=== PATIENT | female | born 1940 | race Caucasian/White ===

== ENCOUNTER 2019-04-13 10:22 | Outpatient (RCR) | payer MEDICARE, SELFPAY ==
[2019-02-16 10:58] LABS: Basophils Absolute Auto 0.03 K/mm3 (0.00-0.10); Basophils Percent Auto 0.4 % (0.0-1.0); Eosinophils Absolute Auto 0.13 K/mm3 (0.02-0.50); Eosinophils Percent Auto 1.9 % (1.0-6.0); Hematocrit 27.6 % (35.0-42.0); Hemoglobin 8.7 g/dL (11.7-13.8); Immature Granulocyte Absolute 0.02 K/mm3 (0.00-0.00); Immature Granulocyte Percent A 0.3 % (0.0-0.0); Immature Platelet Fraction Pct 2.6 % (1.0-7.0); Lymphocytes Absolute Auto 1.71 K/mm3 (1.10-4.50); Lymphocytes Percent Auto 24.7 % (18.0-42.0); Mean Corpuscular HGB Conc 31.5 g/dL (32.0-36.0); Mean Corpuscular Hemoglobin 33.2 pg (27.0-31.0); Mean Corpuscular Volume 105.3 fL (78.0-102.0); Mean Platelet Volume 11.5 fl (9.2-11.8); Monocytes Percent Auto 7.2 % (2.0-11.0); Neutrophils Absolute Auto 4.5 K/mm3 (1.7-7.2); Neutrophils Percent Auto 65.5 % (50.0-70.0); Platelet Count Result 67 K/mm3 (150-420); Red Blood Count 2.62 M/mm3 (4.20-5.40); Red Cell Distribution Width 15.3 % (11.6-14.4); White Blood Count 6.9 K/mm3 (4.8-10.8)
[2019-02-23 10:42] LABS: Basophils Absolute Auto 0.02 K/mm3 (0.00-0.10); Basophils Percent Auto 0.3 % (0.0-1.0); Eosinophils Absolute Auto 0.09 K/mm3 (0.02-0.50); Eosinophils Percent Auto 1.4 % (1.0-6.0); Hematocrit 28.1 % (35.0-42.0); Immature Granulocyte Absolute 0.03 K/mm3 (0.00-0.00); Immature Granulocyte Percent A 0.5 % (0.0-0.0); Immature Platelet Fraction Pct 2.3 % (1.0-7.0); Lymphocytes Absolute Auto 1.31 K/mm3 (1.10-4.50); Lymphocytes Percent Auto 20.1 % (18.0-42.0); Mean Corpuscular Hemoglobin 33.5 pg (27.0-31.0); Mean Corpuscular Volume 104.5 fL (78.0-102.0); Mean Platelet Volume 11.1 fl (9.2-11.8); Monocytes Absolute Auto 0.41 K/mm3 (0.10-0.90); Monocytes Percent Auto 6.3 % (2.0-11.0); Neutrophils Absolute Auto 4.7 K/mm3 (1.7-7.2); Neutrophils Percent Auto 71.4 % (50.0-70.0); Platelet Count Result 70 K/mm3 (150-420); Red Blood Count 2.69 M/mm3 (4.20-5.40); Red Cell Distribution Width 14.9 % (11.6-14.4); White Blood Count 6.5 K/mm3 (4.8-10.8)
[2019-03-09 11:35] LABS: Basophils Absolute Auto 0.02 K/mm3 (0.00-0.10); Basophils Percent Auto 0.4 % (0.0-1.0); Eosinophils Absolute Auto 0.12 K/mm3 (0.02-0.50); Eosinophils Percent Auto 2.5 % (1.0-6.0); Hematocrit 26.8 % (35.0-42.0); Hemoglobin 8.6 g/dL (11.7-13.8); Immature Granulocyte Absolute 0.01 K/mm3 (0.00-0.00); Immature Granulocyte Percent A 0.2 % (0.0-0.0); Lymphocytes Absolute Auto 0.73 K/mm3 (1.10-4.50); Lymphocytes Percent Auto 15.5 % (18.0-42.0); Mean Corpuscular HGB Conc 32.1 g/dL (32.0-36.0); Mean Corpuscular Hemoglobin 33.7 pg (27.0-31.0); Mean Corpuscular Volume 105.1 fL (78.0-102.0); Monocytes Absolute Auto 0.33 K/mm3 (0.10-0.90); Neutrophils Absolute Auto 3.5 K/mm3 (1.7-7.2); Neutrophils Percent Auto 74.4 % (50.0-70.0); Platelet Count Result 27 K/mm3 (150-420); Red Blood Count 2.55 M/mm3 (4.20-5.40); Red Cell Distribution Width 16.3 % (11.6-14.4); White Blood Count 4.7 K/mm3 (4.8-10.8)
[2019-03-15 10:54] LABS: Hematocrit 29.2 % (35.0-42.0); Hemoglobin 9.1 g/dL (11.7-13.8); Immature Platelet Fraction Pct 2.6 % (1.0-7.0); Mean Corpuscular HGB Conc 31.2 g/dL (32.0-36.0); Mean Corpuscular Volume 105.8 fL (78.0-102.0); Mean Platelet Volume 10.2 fl (9.2-11.8); Platelet Count Result 52 K/mm3 (150-420); Red Blood Count 2.76 M/mm3 (4.20-5.40); Red Cell Distribution Width 16.2 % (11.6-14.4); White Blood Count 5.8 K/mm3 (4.8-10.8)
[2019-03-15 11:04] LABS: Band Neutrophils Percent 0 % (0-6); Basophils Absolute Manual 0.05 K/mm3 (0-0.1); Basophils Percent Manual 1 % (0-1); Eosinophils Absolute Manual 0.11 K/mm3 (0.02-0.5); Eosinophils Percent Manual 2 % (1-6); Lymphocytes Absolute Manual 0.87 K/mm3 (1.1-4.5); Lymphocytes Percent Manual 15 % (18-44); Monocytes Absolute Manual 0.23 K/mm3 (0.1-0.90); Monocytes Percent Manual 4 % (3-9); Neutrophils Absolute Manual 4.52 K/mm3 (1.7-7.2); Neutrophils Percent Manual 78 % (46-73); Platelet Estimate Decreased (Adequate); Total Cells Counted 100
[2019-04-13 10:38] LABS: Basophils Absolute Auto 0.02 K/mm3 (0.00-0.10); Basophils Percent Auto 0.3 % (0.0-1.0); Eosinophils Absolute Auto 0.14 K/mm3 (0.02-0.50); Eosinophils Percent Auto 2.4 % (1.0-6.0); Hematocrit 28.3 % (35.0-42.0); Hemoglobin 8.9 g/dL (11.7-13.8); Immature Granulocyte Absolute 0.02 K/mm3 (0.00-0.00); Immature Granulocyte Percent A 0.3 % (0.0-0.0); Immature Platelet Fraction Pct 2.3 % (1.0-7.0); Lymphocytes Absolute Auto 0.72 K/mm3 (1.10-4.50); Lymphocytes Percent Auto 12.4 % (18.0-42.0); Mean Corpuscular HGB Conc 31.4 g/dL (32.0-36.0); Mean Corpuscular Hemoglobin 33.3 pg (27.0-31.0); Mean Platelet Volume 9.7 fl (9.2-11.8); Monocytes Absolute Auto 0.39 K/mm3 (0.10-0.90); Monocytes Percent Auto 6.7 % (2.0-11.0); Neutrophils Absolute Auto 4.5 K/mm3 (1.7-7.2); Neutrophils Percent Auto 77.9 % (50.0-70.0); Platelet Count Result 60 K/mm3 (150-420); Red Blood Count 2.67 M/mm3 (4.20-5.40); Red Cell Distribution Width 15.9 % (11.6-14.4); White Blood Count 5.8 K/mm3 (4.8-10.8)
== END 2019-05-17 23:59 | disposition home or self-care (01) ==
LOC: CHSLAB 10:22
PROVIDERS: PCP Internal Medicine
DX: N18.5 Chronic kidney disease, stage 5 (principal); D63.1 Anemia in chronic kidney disease
CPT/HCPCS: 36415; 85025

== ENCOUNTER 2019-05-06 10:22 | Outpatient (CLI) | payer MEDICARE, SELFPAY ==
[2019-05-06] MEDS: EPOETIN ALFA 10,000 UNITS/ML VIAL 20000 UNITS SUB-Q (10:42)
== END 2019-05-06 10:23 | disposition home or self-care (01) ==
LOC: CHSTREATRM 10:25
PROVIDERS: PCP Internal Medicine; Visit Provider Internal Medicine Nephrology
DX: N18.4 Chronic kidney disease, stage 4 (severe) (principal); D63.1 Anemia in chronic kidney disease
CPT/HCPCS: 96372; J0885

== ENCOUNTER 2019-05-11 10:29 | Outpatient (CLI) | payer MEDICARE, SELFPAY ==
[2019-05-11 10:41] LABS: Basophils Absolute Auto 0.02 K/mm3 (0.00-0.10); Basophils Percent Auto 0.3 % (0.0-1.0); Eosinophils Absolute Auto 0.04 K/mm3 (0.02-0.50); Eosinophils Percent Auto 0.6 % (1.0-6.0); Hematocrit 23.8 % (35.0-42.0); Hemoglobin 7.6 g/dL (11.7-13.8); Immature Granulocyte Absolute 0.02 K/mm3 (0.00-0.00); Immature Granulocyte Percent A 0.3 % (0.0-0.0); Immature Platelet Fraction Pct 4.1 % (1.0-7.0); Lymphocytes Absolute Auto 0.83 K/mm3 (1.10-4.50); Lymphocytes Percent Auto 12.7 % (18.0-42.0); Mean Corpuscular HGB Conc 31.9 g/dL (32.0-36.0); Mean Corpuscular Hemoglobin 33.5 pg (27.0-31.0); Mean Corpuscular Volume 104.8 fL (78.0-102.0); Mean Platelet Volume 12.8 fl (9.2-11.8); Monocytes Absolute Auto 0.47 K/mm3 (0.10-0.90); Monocytes Percent Auto 7.2 % (2.0-11.0); Neutrophils Absolute Auto 5.2 K/mm3 (1.7-7.2); Neutrophils Percent Auto 78.9 % (50.0-70.0); Platelet Count Result 30 K/mm3 (150-420); Red Blood Count 2.27 M/mm3 (4.20-5.40); White Blood Count 6.6 K/mm3 (4.8-10.8)
== END 2019-05-11 10:30 | disposition home or self-care (01) ==
LOC: CHSLAB 10:32
PROVIDERS: PCP Internal Medicine; Visit Provider Internal Medicine Nephrology
DX: N18.4 Chronic kidney disease, stage 4 (severe) (principal); D63.1 Anemia in chronic kidney disease
CPT/HCPCS: 36415; 85025; 85055

== ENCOUNTER 2019-05-13 10:32 | Emergency (ER) | payer MEDICARE, SELFPAY ==
[2019-05-13] VITALS (8 sets, daily range): BP systolic 110–169; BP diastolic 65–93; PULSE 76–87; RESP 14–18; TEMP 36.6–37.1; O2SAT 99–100
--- NOTE | 2019-05-13 11:16 | ECG_ITS ---
Measurements Intervals [place] Rate: 81 P: 97 IN: 175 QRS: -7 QRSD: 89 T: 74 QT: 363 QTc: 423 Interpretive Statements SINUS RHYTHM VENTRICULAR PREMATURE COMPLEXES EARLY PRECORDIAL R/S TRANSITION BASELINE WANDER- AVR, AVL, AVF, V1, BORDERLINE ECG Electronically Signed On 05-13-2019 11:53:01 [employer]CHOOL PROGRAM TEACHER by Petar Saunders D.O.
[2019-05-13 11:32] LABS: Occult Blood Positive (Negative)
[2019-05-13 11:33] LABS: Basophils Absolute Auto 0.01 K/mm3 (0.00-0.10); Basophils Percent Auto 0.2 % (0.0-1.0); Eosinophils Absolute Auto 0.03 K/mm3 (0.02-0.50); Eosinophils Percent Auto 0.5 % (1.0-6.0); Immature Granulocyte Absolute 0.02 K/mm3 (0.00-0.00); Immature Granulocyte Percent A 0.3 % (0.0-0.0); Immature Platelet Fraction Pct 4.6 % (1.0-7.0); Lymphocytes Absolute Auto 0.38 K/mm3 (1.10-4.50); Lymphocytes Percent Auto 6.1 % (18.0-42.0); Mean Corpuscular HGB Conc 31.4 g/dL (32.0-36.0); Mean Corpuscular Hemoglobin 33.1 pg (27.0-31.0); Mean Corpuscular Volume 105.5 fL (78.0-102.0); Mean Platelet Volume 11.7 fl (9.2-11.8); Monocytes Absolute Auto 0.34 K/mm3 (0.10-0.90); Monocytes Percent Auto 5.5 % (2.0-11.0); Neutrophils Absolute Auto 5.4 K/mm3 (1.7-7.2); Neutrophils Percent Auto 87.4 % (50.0-70.0); Platelet Count Result 28 K/mm3 (150-420); Red Blood Count 1.45 M/mm3 (4.20-5.40); Red Cell Distribution Width 15.5 % (11.6-14.4); White Blood Count 6.2 K/mm3 (4.8-10.8)
[2019-05-13 11:36] LABS: Hemoglobin 4.8 g/dL (11.7-13.8)
[2019-05-13 11:37] LABS: Hematocrit 15.3 % (35.0-42.0)
[2019-05-13 11:45] LABS: INR 1.1; Partial Thromboplastin Time 26.1 SEC (22.3-31.6); Prothrombin Time 10.9 Seconds (9.64-11.0)
[2019-05-13 11:47] LABS: Alanine Aminotransferase 6 U/L (14-59); Albumin Level 1.8 g/dL (3.4-5.0); Alkaline Phosphatase 110 U/L (46-116); Aspartate Amino Transferase 9 U/L (15-37); Bilirubin,Total 0.3 mg/dL (0.00-1.00); Blood Urea Nitrogen 83 mg/dL (7-18); Calcium 8.5 mg/dL (8.5-10.1); Carbon Dioxide 23 mmol/L (21-32); Chloride 101 mmol/L (98-108); Estimated CRCL calculation 12 ml/min; Estimated Glomerular Filt Rate 16; Glucose 151 mg/dL (70-99); Lipase 79 U/L (73-393); Osmolality Calculated 302 mOsm/kg (285-295); Sodium 132 mmol/L (136-145); Total Protein 5.7 g/dL (6.4-8.2)
[2019-05-13 11:54] LABS: Lactic Acid 0.9 mmol/L (0.4-2.0)
[2019-05-13 11:56] LABS: BNP 756 pg/mL (0-100)
--- NOTE | 2019-05-13 12:13 | PC.NURSE ---
Pt requesting [facility] for transfer. Attempted household appliance installer, unable to be reached at this time.
--- NOTE | 2019-05-13 12:23 | PC.NURSE ---
[facility] contacted for edp to speak with hospitalist.
[2019-05-13] MEDS: PANTOPRAZOLE SODIUM IV 40 MG VIAL IV PUSH (12:34)
[2019-05-13] MEDS: SODIUM CHLORIDE 0.9% IV 250 ML 30 ML IV CONT (12:37)
--- NOTE | 2019-05-13 12:40 | ED.GIBLEED ---
HPI - GI Bleed General Chief complaint: GI Bleed Stated complaint: weak and passing blood Source: patient and family Mode of arrival: ambulatory Limitations: no limitations History of Present Illness HPI Narrative: this is a 78-year-old female that presents with some a GI bleed had 2 large some bowel movements with bright red blood, currently on there is no abdominal pain denies any shortness of breath no chest pain no nausea or vomiting patient does have a history of diverticulosis, and was seen at [facility] had a colonoscopy performed at that time, according the family that study was inconclusive. The patient also states that she has been having weakness over the last 24 hours, has a past medical history of chronic kidney disease which she sees kidney specialist at [facility]. Patient has a history of hypertension hyperlipidemia. Current we are vital signs are stable blood pressure 110/86 with heart rate of 81. MD complaint: gross hematochezia Onset (ago): hour(s) Pain Consistency: intermittent Severity: severe Relieving factors: none and bowel movement Exacerbating factors: none Context: history of GI bleed Associated symptoms: denies other symptoms Related Data Home Medications Medication Instructions Recorded Confirmed PNV cmb#95-ferrous fumarate-FA 1 tablet PO DAILY 05/13/19 05/13/19 [ Multivitamins] allopurinol 100 mg PO DAILY 05/13/19 05/13/19 aspirin 81 mg PO DAILY 05/13/19 05/13/19 betamethasone, augmented 1 applic TOPICAL PRN 05/13/19 05/13/19 carvedilol 25 mg PO BID 05/13/19 05/13/19 cholecalciferol (vitamin D3) 1,000 unit PO DAILY 05/13/19 05/13/19 [Vitamin D3] clonidine HCl 0.1 mg PO BID 05/13/19 05/13/19 docusate calcium [Surfak] 240 mg PO DAILY 05/13/19 05/13/19 fluticasone propionate [Flonase 1 spray INTRANASAL DAILY 05/13/19 05/13/19 Allergy Relief] hydralazine 10 mg PO QID 05/13/19 05/13/19 montelukast 10 mg PO DAILY 05/13/19 05/13/19 psyllium husk [Metamucil] 0.4 g PO DAILY 05/13/19 05/13/19 simvastatin 10 mg PO DAILY 05/13/19 05/13/19 vitamin B complex [B 1 tablet PO DAILY 05/13/19 05/13/19 Complex-Vitamin B12] Allergies Allergy/AdvReac Type Severity Reaction Status Date / Time ciprofloxacin Allergy Severe Anaphylactic Verified 05/06/19 10:34 Shock cephalexin Allergy Intermediate TINNITIS Verified 05/06/19 10:34 Penicillins Allergy Intermediate HIVES Verified 05/06/19 10:34 Quinolones Allergy Intermediate HIVES Verified 05/06/19 10:34 Review of Systems Review of Systems: All systems reviewed & are unremarkable except as noted in HPI and below PMFSH Past Medical History Medical History Anemia of chronic kidney failure Diverticulosis of colon with hemorrhage HLD (hyperlipidemia) HTN (hypertension) Exam Const: General: no acute distress, alert and ill appearing Orientation/consciousness: patient oriented x3 HENMT: Head: normal to inspection Eyes: Conjunctivae: conjunctivae normal Pupils: Equal, round and reactive pupils present Neck: Neck: normal visual inspection and no lymphadenopathy Chest: Chest palpation & inspection: normal inspection of the chest Resp: Effort & Inspection: normal respiratory effort Cardio: Rate: regular rate Rhythm: regular rhythm GI: GI Palp: Yes Soft to palpation Other: Rectal exam performed showed blood along with some dark stools Skin: General skin exam: pallor Rashes: no rashes Neuro: General: patient oriented x3, moves all extremities, no meningeal signs and no focal motor deficits Extrem: General: normal to inspection Psych: Mental Status: mental status grossly normal Course Vital Signs Vital signs: Vital Signs Temperature 36.6 C 05/13/19 11:19 Pulse Rate 81 05/13/19 11:19 Respiratory Rate 16 05/13/19 11:19 Blood Pressure 110/65 05/13/19 11:19 Pulse Oximetry 100 05/13/19 11:19 Temperature 36.6 C 05/13/19 11:19 Pulse
--- NOTE | 2019-05-13 12:52 | PC.NURSE ---
Dr. Velasco speaking with Hospital AIRPORT OPERATIONS SUPERVISOR, for dr hay at [place].
--- NOTE | 2019-05-13 12:54 | PC.NURSE ---
Pt to go to room 204.
--- NOTE | 2019-05-13 13:10 | PC.NURSE ---
[facility] unable to take report, room still has pt in it. Awaiting return call to give report.
--- NOTE | 2019-05-13 13:35 | PC.NURSE ---
Pt resting comfortably on stretcher.
--- NOTE | 2019-05-13 15:18 | PC.NURSE ---
Awaiting room to be ready at [facility] for transfer. Pt resting on stretcher, family at bedside. Pt and family updated.
[2019-05-13 15:31] LABS: Hematocrit 18.5 % (35.0-42.0)
--- NOTE | 2019-05-13 15:54 | PC.NURSE ---
[facility] unable to transport pt. [facility] contacted.
--- NOTE | 2019-05-13 16:28 | PC.NURSE ---
Pt transfered to [facility] with blood infusing.
== END 2019-05-13 16:26 | disposition short-term general hospital (02) ==
PROVIDERS: Emergency Provider Emergency Medicine; PCP Internal Medicine
DX: K92.2 Gastrointestinal hemorrhage, unspecified (principal); K57.91 Diverticulosis of intestine, part unspecified, without perforation or abscess with bleeding; N18.9 Chronic kidney disease, unspecified; D63.1 Anemia in chronic kidney disease; E78.5 Hyperlipidemia, unspecified; I12.9 Hypertensive chronic kidney disease with stage 1 through stage 4 chronic kidney disease, or unspecified chronic kidney disease
CPT/HCPCS: 36415; 36430; 80053; 82272; 83605; 83690; 83880; 85014; 85018; 85025; 85055; 85610; 85730; 86850; 86900; 86901; 86920; 93005; 96361; 96374; 99284; 99285; C9113; J7050; P9016

== ENCOUNTER 2019-05-13 17:12 | Inpatient (IN) | payer MEDICARE, SELFPAY ==
[2019-05-13] VITALS (9 sets, daily range): BP systolic 148–170; BP diastolic 67–87; PULSE 82–96; RESP 16–24; TEMP 36.4–37.4; O2SAT 99–100; BMI 26.4; BMI 25.6; BMI 25.7
--- NOTE | ~2019-05-13 | CT_ITS ---
EXAMINATION: CT abdomen pelvis wo con DATE: 05/15/2019 09:19 INDICATION: Diverticulitis. Limited colonoscopy. TECHNIQUE: Computed tomography (CT) of the abdomen and pelvis was performed without intravenous contr ast. Automated exposure control and iterative reconstruction technique were employed. The dose-length product was 395.72 mGy-cm. COMPARISON: 06/18/2017 FINDINGS: Small left and [id number] right pleural effusions with dependent compressive atelectasis in th e bilateral lower lobes. Cardiomegaly. Trace pericardial effusion. Small sliding-type hiatal hernia. Several fluid attenuation hepatic cysts the largest measuring 2.5 cm. Also a few hepatic calcificatio ns consistent with old granulomatous disease. Dependently layering sludge and small calcified gallsto anibal in the normal appearing gallbladder. Spleen and bilateral adrenal glands are normal. Again seen i s a small coarse calcification at the periphery of indeterminate 3.2 x 2.0 cm cystic lesion at the ne ck of the pancreas. No definitive interval change in a subtle approximately 1.9 cm lesion at the uppe r pole of the left kidney which appears centrally low attenuation, potentially partially cystic with thickened peripheral wall. Unchanged 5 mm hyperdense proteinaceous/hemorrhagic cyst at the mid left k idney. Suggestion of a subtle cyst at the upper pole of the right kidney. Moderate bilateral perineph irene stranding. Normal small bowel and appendix with no obstruction. Multiple colonic diverticula. There is prominent wall thickening and inflammatory stranding along the proximal to mid sigmoid colon suggestive of div erticulitis. 4.1 x 2.7 x 1.8 cm loculated gas and fluid collection situated between the left psoas mu scle, left iliac vessels and proximal sigmoid colon consistent with abscess. The position of the lesi on is not readily accessible to percutaneous drainage. Additional 2.1 x 1.1 x 1.4 cm gas and fluid co llection intimately associated with the posterior wall of the proximal sigmoid colon consistent with additional abscess potentially intramural. No more remote free intraperitoneal gas. Bladder and uteru s appear unremarkable however visualization of both is poor due to prominent metallic streak artifact in the deep pelvis resulting from a right total hip arthroplasty and left femoral head and neck fixa tion screw. No pathologically enlarged abdominal or pelvic lymphadenopathy. Severe disc height loss a t L5-S1. Minimal spondylosis in the more cephalad lumbar and lower thoracic spine. Extensive dependen t body wall edema. IMPRESSION: 1. Diverticulitis with a couple small abscesses in the pelvis which currently do not appear readily a menable to percutaneous drainage. 2. Indeterminate 1.9 cm lesion at the upper pole of the left kidney concerning for renal cell carcino ma. Consider further evaluation with pre and postcontrast MRI or CT. 3. Cystic lesion at the neck of the pancreas with adjacent coarse calcification most likely pseudocys t related to chronic pancreatitis although cystic neoplasm cannot be absolutely excluded. This could be further evaluated at the same time as the renal lesion. 4. Cardiomegaly with trace pericardial effusion. 5. Small left and uewvw-sl-wdyntelh right pleural effusions. 6. Cholelithiasis. Reviewed, dictated and finalized at location A. CIATE FACULTY IMPRESSION: 1. Diverticulitis with a couple small abscesses in the pelvis which currently d o not appear readily amenable to percutaneous drainage. 2. Indeterminate 1.9 cm lesion at the upper pole of the left kidney concerning for renal cell carcinoma. Consider further evaluation with pre and postcontrast MRI or CT. 3. Cystic lesion at the neck of the pancreas with adjacent coarse calcification most likely pseudocyst related to
--- NOTE | ~2019-05-13 | XR_ITS ---
EXAMINATION: XR chest 1V portable DATE: 05/13/2019 23:40 INDICATION: Shortness of breath TECHNIQUE: frontal view of the chest was obtained. COMPARISON: Chest radiograph dated 10/15/2018 FINDINGS: Mild reticular opacities at the bilateral lung bases suggesting mild pulmonary edema or atelectasis. Additional hazy airspace opacity at the right lung base with distinct costophrenic angle suggesting p ossible small right pleural effusion. No pneumothorax. The cardiomediastinal silhouette is within nor mal limits for AP technique. Mild thoracic spondylosis. IMPRESSION: 1. Interstitial and airspace opacities at the lung bases, right greater than left which could represe nt mild pulmonary edema, atelectasis or pneumonia with possible small right pleural effusion. Reviewed, dictated and finalized at location A. GER PRICING IMPRESSION: 1. Interstitial and airspace opacities at the lung bases, right greater than le ft which could represent mild pulmonary edema, atelectasis or pneumonia with po ssible small right pleural effusion.
--- NOTE | 2019-05-13 17:00 | ADMGEN ---
This patient, Grecia Patterson, was admitted to IMU Room 201-01. Patient/family oriented to hospital policies and general routines including ID bracelet, bed and alarms, visiting hours, pain management, procedures, bathroom and other care routines, personal items, smoking policy, room service/diet, and visiting hours. Valuables list has been completed. Information on how to activate the Rapid Response Team has been discussed. Patient/Family are encouraged to report perceived risks to care and to ask questions if they do not understand what they are told or what they should do.
[2019-05-13] MEDS: FUROSEMIDE INJ 40 MG/4 ML VIAL 20 MG IV PUSH (19:06)
[2019-05-13 19:33] LABS: Hematocrit 23.6 % (37.0-47.0); Hemoglobin 7.6 g/dL (12.0-15.0)
[2019-05-13] MEDS: PEG (High)/E-LYTE SOLN 4,000 ML BTL 4000 ML PO (20:27)
[2019-05-13] MEDS: SODIUM CHLORIDE 0.9% IV 250 ML 30 ML IV CONT (20:28)
--- NOTE | 2019-05-13 21:00 | PM.IMHP ---
H&P: HPI History of Present Illness Chief complaint: GI bleed, profound anemia. Narrative: Grecia Patterson is a 78 year old female who is being directly admitted to the hospitalist service from the emergency department at [facility] for further treatment and evaluation of presumed lower GI bleed and profound anemia. Her medical history is significant for diverticulitis with micro perforation in the summer, chronic kidney disease stage 4, chronic anemia with thrombocytopenia, hypertension, and hyperlipidemia. She felt weak upon waking this morning, and not long thereafter passed 2 large bloody stools. She felt a bit sweaty/clammy at that time but that has since resolved. She has not had any further bloody stools since transfer. At this time she is status post 2 units packed red blood cells, and notes feeling somewhat better however she does have nausea and had emesis x1 with bowel prep not long prior to my arrival. She also has mild shortness of breath, but that does not seem to be any worse than baseline. Currently she denies fever, chills, sweats, chest pain, pleuritic pain, shortness of breath, abdominal pain, and epigastric pain. Review of Systems Review of Systems: Narrative: Twelve systems were reviewed with pertinent positives and negatives as per HPI. No fever, chills, or sweats. No recent cold or flu-like symptoms. She did get her flu shot in April of this year. She denies history of congestive heart failure. She notes chronic trace lower extremity edema which is unchanged. No calf pain or tenderness. Except as documented, all other systems were reviewed and are negative. [facility] Past Medical History Medical History (Updated 05/13/19 @ 22:18 by Jillian Emerson PA-C) Breast cancer Carcinoma in situ, status post lumpectomy and radiation therapy. Chronic anemia She is a patient of Dr. Telles at [place]. A bone marrow biopsy done about 5 years ago was reportedly unremarkable. Chronic kidney disease, stage 4 (severe) Baseline creatinine around 3.0. Diverticular disease Diverticulitis of colon with perforation Summer 2018, hospitalized at [place]. Diverticulosis of colon with hemorrhage Summer 2018. Gout Hyperlipidemia Hypertension Surgical History Surgical History (Updated 05/13/19 @ 13:21 by Jillian Emerson PA-C) Status post hip surgery Left hip screw. Status post right breast lumpectomy Status post right hip replacement Family History Family History (Updated 05/13/19 @ 13:22 by Jillian Emerson PA-C) Father Alzheimer's dementia End-stage renal disease needing dialysis Mother Breast cancer Grandparent Diabetes mellitus Social History Social History (Updated 05/13/19 @ 22:16 by Jillian Emerson PA-C) Social History: The patient lives in her own home [place]. Her children live nearby. She designates her daughter's as her surrogate decision makers and she wishes to be a DNR/DNI. She is a lifelong nonsmoker and denies alcohol and drug abuse. Spiritual care concerns: No Agree to blood products: Yes Meds Home Medications and Allergies Home Medications Medication Instructions Recorded Confirmed Type PNV cmb#95-ferrous fumarate-FA 1 tablet PO DAILY 05/13/19 05/13/19 History [ Multivitamins] allopurinol 100 mg PO DAILY 05/13/19 05/13/19 History aspirin 81 mg PO DAILY 05/13/19 05/13/19 History betamethasone, augmented 1 applic TOPICAL PRN 05/13/19 05/13/19 History carvedilol 25 mg PO BID 05/13/19 05/13/19 History cholecalciferol (vitamin D3) 1,000 unit PO DAILY 05/13/19 05/13/19 History [Vitamin D3] clonidine HCl 0.1 mg PO BID 05/13/19 05/13/19 History docusate calcium [Surfak] 240 mg PO DAILY 05/13/19 05/13/19 History fluticasone propionate [Flonase 1 spray INTRANASAL DAILY 05/13/19 05/13/19 History Allergy Relief] hydralazine 10 mg PO QID 05/13/19 05/13/19 History montelukast 10 mg PO DAILY 05/13/19 05/13/19 History psyllium husk
[2019-05-13] MEDS: CLONIDINE HCL 0.1 MG TABLET PO (22:55)
[2019-05-13] MEDS: ONDANSETRON INJ 4 MG/2 ML VIAL IV PUSH (22:55)
[2019-05-13] MEDS: TUBING, BLOOD PLUM PUMP TUBING 1 EACH XX (23:00)
[2019-05-14] VITALS (29 sets, daily range): BP systolic 97–185; BP diastolic 53–91; PULSE 74–95; RESP 16–25; TEMP 36.1–36.9; O2SAT 93–100
[2019-05-14] MEDS: hydrALAZINE 10 MG TABLET PO ×5 (00:21→20:36)
[2019-05-14] MEDS: carvediloL 25 MG TABLET PO ×3 (00:21→20:36)
[2019-05-14 06:53] LABS: Hematocrit 30.6 % (37.0-47.0); Mean Corpuscular HGB Conc 32.7 g/dl (32-36); Mean Corpuscular Volume 94.7 fl (80-100); Mean Platelet Volume 12.8 fl (7.4-10.4); Platelet Count Result 32 k/mm3 (150-375); Red Blood Count 3.23 M/mm3 (4.2-5.4); Red Cell Distribution Width 17.6 % (11.5-14.5); White Blood Count 5.6 K/mm3 (4.5-10.0)
[2019-05-14 07:04] LABS: Blood Urea Nitrogen 68 mg/dL (7-17); Calcium 8.7 mg/dL (8.4-10.2); Carbon Dioxide 24 mmol/L (22-30); Chloride 97 mmol/L (98-107); Estimated CRCL calculation 16 ml/min; Estimated Glomerular Filt Rate 19; Glucose 108 mg/dL (65-105); Potassium 4.2 mmol/L (3.4-5.0); Sodium 131 mmol/L (137-145)
[2019-05-14] MEDS: MONTELUKAST SODIUM 10 MG TABLET PO (08:28)
[2019-05-14] MEDS: FLUTICASONE PROPIONATE 0.05% NA SPR 16 GM BTL (*BKC) 1 SPRAY NASAL (08:28)
[2019-05-14] MEDS: CLONIDINE HCL 0.1 MG TABLET PO ×2 (08:28→16:32)
[2019-05-14] MEDS: allopurinoL 100 MG TABLET PO (08:28)
[2019-05-14] MEDS: SIMVASTATIN 10 MG TABLET PO (08:28)
--- NOTE | 2019-05-14 09:31 | WPDGICN ---
Assessment and Plan Additional Plan This is a 78-year-old white female patient seen in evaluation at the request of the emergency room. Patient in her usual state of health yesterday began to pass dark blackish stools that became reddish prompting her to go to the emergency room minced on yesterday. She was transferred [facility] for further evaluation. She denies abdominal pain. She states that last summer was treated for diverticulitis. She has a distant history of GI bleeding underwent endoscopy in [place] with unclear findings. Past medical history is significant for chronic anemia. She has thrombocytopenia as well. Followed by a product marketing coordinator at [facility]. Patient has distant history of breast cancer. Carcinoma in situ not felt to be active at this time. She has been treated for gout. Hyperlipidemia. Hypertension. Chronic kidney disease. Chronic anemia with thrombocytopenia. Patient has allergies to Cipro, cephalexin, penicillins, quinolones. Current medications include allopurinol. Aspirin. Betamethasone. Carvedilol. Clonidine. Do could say. Fluticasone. Hydralazine. Montelukast. Simvastatin. Physical exam reveals patient to be alert. Vital signs stable. HEENT exam unremarkable. Lungs are clear to auscultation and percussion. Heart is without murmur or extra sounds. Abdominal exam is soft nontender with no organomegaly. Labs reveal WBC 5.6. Hemoglobin 10. Hematocrit 30.6. MCV 94. Platelets are 32,000. Impression 1. GI bleeding. Uncertain whether this is upper or lower GI given her history of melena initially. She is known to have a history of diverticulosis and possible bleeding in the past. Plan is for both colonoscopy an EGD today. Follow hemoglobin and transfuse to a stable hematocrit. 2. Chronic anemia with thrombocytopenia. Underlying hematologic process is somewhat uncertain. Continued Hematology follow-up is advised. GI Consult Note Consult date/time: 05/14/19 09:31 HPI: Grecia Patterson is a 78 year old female [facility] Past Medical History Medical History (Updated 05/14/19 @ 00:00 by Background Daemon) Breast cancer Carcinoma in situ, status post lumpectomy and radiation therapy. Chronic anemia She is a patient of Dr. Telles at [facility]. A bone marrow biopsy done about 5 years ago was reportedly unremarkable. Chronic kidney disease, stage 4 (severe) Baseline creatinine around 3.0. Diverticular disease Diverticulitis of colon with perforation Summer 2018, hospitalized at [facility]. Diverticulosis of colon with hemorrhage Summer 2018. Gout Hyperlipidemia Hypertension Surgical History Surgical History (Updated 05/13/19 @ 13:21 by Jillian Emerson PA-C) Status post hip surgery Left hip screw. Status post right breast lumpectomy Status post right hip replacement Family History Family History (Updated 05/13/19 @ 13:22 by Jillian Emerson PA-C) Father Alzheimer's dementia End-stage renal disease needing dialysis Mother Breast cancer Grandparent Diabetes mellitus Social History Social History (Updated 05/13/19 @ 22:16 by Jillian Emerson PA-C) Social History: The patient lives in her own home [place]. Her children live nearby. She designates her daughter's as her surrogate decision makers and she wishes to be a DNR/DNI. She is a lifelong nonsmoker and denies alcohol and drug abuse. Spiritual care concerns: No Agree to blood products: Yes Meds Home Medications and Allergies Home Medications Medication Instructions Recorded Confirmed Type PNV cmb#95-ferrous fumarate-FA 1 tablet PO DAILY 05/13/19 05/13/19 History [ Multivitamins] allopurinol 100 mg PO DAILY 05/13/19 05/13/19 History aspirin 81 mg PO DAILY 05/13/19 05/13/19 History betamethasone, augmented 1 applic TOPICAL PRN 05/13/19 05/13/19 History carvedilol 25 mg PO BID 05/13/19 05/13/19 History cholecalciferol (vitamin D3) 1,000 unit PO DAILY
[2019-05-14] MEDS: LACTATED RINGERS 1,000 ML 150 ML IV CONT ×2 (10:36→12:25)
--- NOTE | 2019-05-14 12:28 | WPDANESEPPF ---
Anes - Initial Pre Proc Eval Procedure: Operation Date: 05/14/19 12:30 Proposed Procedures p Esophagogastroduodenoscopy & Colonoscopy - Sanjay Blas MD Date/Time: 05/14/19 12:28 Pre Op Diagnosis: GI bleed, profound anemia. Patient Data Age: 78 Gender: F Height: 1.57 m Weight: 67.5 kg Last Vital Signs Temp 36.8 C 05/14/19 12:12 Pulse 84 05/14/19 12:12 Resp 18 05/14/19 12:12 BP 185/84 H 05/14/19 12:12 Pulse Ox 97 05/14/19 12:12 Allergies Allergy/AdvReac Type Severity Reaction Status Date / Time ciprofloxacin Allergy Severe Anaphylactic Verified 05/06/19 10:34 Shock cephalexin Allergy Intermediate TINNITIS Verified 05/06/19 10:34 Penicillins Allergy Intermediate HIVES Verified 05/06/19 10:34 Quinolones Allergy Intermediate HIVES Verified 05/06/19 10:34 Home Medications Medication Instructions Recorded Confirmed Type PNV cmb#95-ferrous fumarate-FA 1 tablet PO DAILY 05/13/19 05/13/19 History [ Multivitamins] allopurinol 100 mg PO DAILY 05/13/19 05/13/19 History aspirin 81 mg PO DAILY 05/13/19 05/13/19 History betamethasone, augmented 1 applic TOPICAL PRN 05/13/19 05/13/19 History carvedilol 25 mg PO BID 05/13/19 05/13/19 History cholecalciferol (vitamin D3) 1,000 unit PO DAILY 05/13/19 05/13/19 History [Vitamin D3] clonidine HCl 0.1 mg PO BID 05/13/19 05/13/19 History docusate calcium [Surfak] 240 mg PO DAILY 05/13/19 05/13/19 History fluticasone propionate [Flonase 1 spray INTRANASAL DAILY 05/13/19 05/13/19 History Allergy Relief] hydralazine 10 mg PO QID 05/13/19 05/13/19 History montelukast 10 mg PO DAILY 05/13/19 05/13/19 History psyllium husk [Metamucil] 0.4 g PO DAILY 05/13/19 05/13/19 History simvastatin 10 mg PO DAILY 05/13/19 05/13/19 History vitamin B complex [B 1 tablet PO DAILY 05/13/19 05/13/19 History Complex-Vitamin B12] Laboratory Tests 05/13/19 05/13/19 05/14/19 19:27 19:27 06:37 WBC 5.6 K/mm3 K/mm3 (4.5-10.0) RBC 3.23 M/mm3 L M/mm3 (4.2-5.4) Hgb 7.6 g/dL L g/dL 10.0 g/dL L g/dL (12.0-15.0) (12.0-15.0) Hct 23.6 % L % 30.6 % L % (37.0-47.0) (37.0-47.0) MCV 94.7 fl fl (80-100) MCH 31.0 pg pg (26-34) MCHC 32.7 g/dl g/dl (32-36) RDW 17.6 % H % (11.5-14.5) Plt Count 32 k/mm3 L k/mm3 (150-375) MPV 12.8 fl H fl (7.4-10.4) Sodium Potassium Chloride Carbon Dioxide BUN Creatinine Estim Creat Clear Calc Estimated GFR Glucose Calcium Blood Type O Positive Antibody Screen Negative Crossmatch See Detail 05/14/19 06:37 WBC RBC Hgb Hct MCV MCH MCHC RDW Plt Count MPV Sodium 131 mmol/L L mmol/L (137-145) Potassium 4.2 mmol/L mmol/L (3.4-5.0) Chloride 97 mmol/L L mmol/L (98-107) Carbon Dioxide 24 mmol/L mmol/L (22-30) BUN 68 mg/dL H mg/dL (7-17) Creatinine 2.50 mg/dL H mg/dL (0.7-1.0) Estim Creat Clear Calc 16 ml/min ml/min Estimated GFR 19 L (59 - ) Glucose 108 mg/dL H mg/dL (65-105) Calcium 8.7 mg/dL mg/dL (8.4-10.2) Blood Type Antibody Screen Crossmatch Patient hx anesthesia problems: none Family hx anesthesia problems: none PMFSH Past Medical History Medical History (Updated 05/14/19 @ 12:33 by Hammad Ponce MD) Breast cancer Carcinoma in situ, status post lumpectomy and radiation therapy. Chronic anemia She is a patient of Dr. Telles at [place]. A bone marrow biopsy done about 5 years ago was reportedly unremarkable. Chronic kidney disease, stage 4 (severe) Baseline creatinine around 3.0. Diverticular disease Diverticulitis of colon with perforation Summer 2018, hospitalized at [facility]. Diverticulosis of col
--- NOTE | 2019-05-14 12:50 | PM.IMPN ---
Progress Note: A&P Assessment and Plan (1) Acute GI bleeding: Code(s): K92.2 - Gastrointestinal hemorrhage, unspecified Status: Inactive Assessment and Plan: 05/14/19 12:50 Patient is 78-year-old female with a history of chronic anemia diverticulitis initially patient presented to outside [facility] with a complaint of black tarry stool and eventually turn into bright red blood patient patient was transfused and transferred to the inpatient hospital for further evaluation patient is seen by GI, and patient is scheduled for colonoscopy later today, her 2 daughters are present in the room, today patient denies any abdominal pain nausea vomiting or rectal bleeding, her last colonoscopy was in October of 2018 and did not show any significant pathology (2) Acute on chronic blood loss anemia: Code(s): D62 - Acute posthemorrhagic anemia Status: Acute Assessment and Plan: She will be transfused to a stable hemoglobin. Will monitor hemoglobin and hematocrit closely. Should she have recurrent bleeding, would consider platelet transfusion. (3) Hypertension: Code(s): I10 - Essential (primary) hypertension Status: Acute Assessment and Plan: Blood pressures were reviewed and they are running in the 150s to 160 systolic. For now will continue with her antihypertensives and monitor closely. (4) Chronic kidney disease, stage 4 (severe): Code(s): N18.4 - Chronic kidney disease, stage 4 (severe) Status: Acute Assessment and Plan: Creatinine is stable on review of previous labs and will be monitored. Time Spent With Patient Time with patient: 15 - 25 minutes Subjective Date/time seen: 05/14/19 12:50 Patient is 78-year-old female with a history of chronic anemia diverticulitis initially patient presented to outside [facility] with a complaint of black tarry stool and eventually turn into bright red blood patient patient was transfused and transferred to the inpatient hospital for further evaluation patient is seen by GI, and patient is scheduled for colonoscopy later today, her 2 daughters are present in the room, today patient denies any abdominal pain nausea vomiting or rectal bleeding, her last colonoscopy was in October of 2018 and did not show any significant pathology Review of Systems Review of Systems: All systems reviewed & are unremarkable except as noted in HPI and below Exam Const: General: comfortable and no acute distress HENMT: General nose exam: Normal nares present Mouth: Yes moist mucous membranes Eyes: General: appearance normal, both eyes and all related structures Sclera: sclerae normal Neck: Neck: supple Resp: Effort & Inspection: normal respiratory effort Auscultation: clear to auscultation bilaterally Cardio: Rate: regular rate Rhythm: regular rhythm GI: Auscultation: normal bowel sounds Other: Nontender Skin: General skin exam: normal color and no rashes or lesions noted Neuro: Speech: normal speech Sensory Exam: normal sensation Extrem: General: normal to inspection Psych: Affect: Anxious affect present Objective Data Vital Signs Vital Signs: Vital Signs - 24 hr 05/13/19 17:05 05/13/19 17:30 05/13/19 18:00 Temperature 98.4 F Pulse Rate 82 85 87 Respiratory Rate 24 H Blood Pressure 168/78 H Pulse Oximetry 100 05/13/19 18:47 05/13/19 19:50 05/13/19 20:00 Temperature 97.6 F 98.1 F Pulse Rate 86 92 88 Respiratory Rate 16 20 20 Blood Pressure 170/67 H 153/68 H Pulse Oximetry 100 100 100 05/13/19 22:00 05/13/19 23:05 05/13/19 23:25 Temperature 99.4 F 98.3 F Pulse Rate 88 94 96 Respiratory Rate 20 20 Blood Pressure 170/82 H 168/87 H Pulse Oximetry 100 99 05/14/19 00:00 05/14/19 00:21 05/14/19 00:25 Temperature 98 F Pulse Rate 92 92 92 Respiratory Rate 20 18 Blood Pressure 166/86 H Pulse Oximetry 99 98 05/14/19 01:25 05/14/19 01:57 05/14/19
[2019-05-14 15:41] LABS: Hematocrit 32.3 % (37.0-47.0); Hemoglobin 10.7 g/dL (12.0-15.0)
[2019-05-14] MEDS: ALBUTEROL SULFATE NEB 2.5 MG/0.5 ML INH INHALATION (16:56)
[2019-05-14] MEDS: IPRATROPIUM BR 0.02% INH SOLN 0.5 MG/2.5 ML VIAL INHALATION (16:56)
[2019-05-14] MEDS: PANTOPRAZOLE SODIUM IV 40 MG VIAL IV PUSH (20:39)
[2019-05-14] MEDS: AZTREONAM 1 GM in DEXTROSE 5% IN WATER 50 ML IVPB (20:42)
[2019-05-14] MEDS: metroNIDAZOLE 500 MG/ISO 100ML 500 MG/100 ML BAG 100 MG IVPB (21:48)
[2019-05-15] VITALS (19 sets, daily range): BP systolic 122–174; BP diastolic 62–89; PULSE 76–92; RESP 16–18; TEMP 36.6–37.3; O2SAT 92–100
[2019-05-15] MEDS: metroNIDAZOLE 500 MG/ISO 100ML 500 MG/100 ML BAG 100 MG IVPB ×3 (04:28→21:17)
[2019-05-15 05:18] LABS: Hematocrit 29.1 % (37.0-47.0); Hemoglobin 9.4 g/dL (12.0-15.0); Immature Platelet Fraction Pct 7.5 % (0.9-11.2); Mean Corpuscular HGB Conc 32.3 g/dl (32-36); Mean Corpuscular Hemoglobin 31.1 pg (26-34); Mean Corpuscular Volume 96.4 fl (80-100); Mean Platelet Volume 13.5 fl (7.4-10.4); Platelet Count Result 35 k/mm3 (150-375); Red Blood Count 3.02 M/mm3 (4.2-5.4); Red Cell Distribution Width 18.1 % (11.5-14.5); White Blood Count 3.7 K/mm3 (4.5-10.0)
[2019-05-15 05:29] LABS: Albumin Level 2.4 g/dL (3.5-5.1); Blood Urea Nitrogen 58 mg/dL (7-17); Carbon Dioxide 23 mmol/L (22-30); Chloride 96 mmol/L (98-107); Estimated CRCL calculation 16 ml/min; Estimated Glomerular Filt Rate 20; Glucose 89 mg/dL (65-105); Phosphorus 3.3 mg/dL (2.5-4.5); Potassium 3.8 mmol/L (3.4-5.0); Sodium 133 mmol/L (137-145)
--- NOTE | 2019-05-15 09:30 | WPDGIPROGNO ---
Progress Note: A&P Additional Plan Patient alert this morning. Notices very mild left lower quadrant tenderness. No signs of GI bleeding. Physical exam reveals her to be afebrile. Vital signs stable. HEENT exam she is anicteric. Lungs are clear. Heart is without murmur. Abdomen is soft with mild left lower quadrant tenderness. No masses identified. Labs reveal WBC 3.7. Hemoglobin 9.4, hematocrit 29.1, MCV 96. Platelets 35 K. BUN 58, creatinine 2.4. Impression 1. Pancytopenia. Previously followed at [facility]. The exact etiology for for pancytopenia unclear. Hematology follow-up may be necessary. 2. Diverticulitis. History of diverticulitis last summer. Patient now with markedly inflamed sigmoid colon. Causing partial obstruction. And endoscope unable to pass this area by endoscopy yesterday. Plan is to check CT scan. Broad-spectrum antibiotic coverage. 3. Gastric ulcer. Gastric ulcer identified by endoscopy yesterday. Plan is to avoid nonsteroidal anti-inflammatory agents. Continue proton pump inhibitors follow-up endoscopy in 2 months advised. Subjective Date/time seen: 05/15/19 09:30 Objective Data Vital Signs Vital Signs: Vital Signs - 24 hr 05/14/19 10:00 05/14/19 12:12 05/14/19 12:30 Temperature 36.8 C 36.8 C Pulse Rate 77 84 85 Respiratory Rate 18 20 Blood Pressure 185/84 H 180/86 H Pulse Oximetry 97 96 05/14/19 13:29 05/14/19 13:36 05/14/19 13:49 Temperature Pulse Rate 78 78 80 Respiratory Rate 25 H 25 H 20 Blood Pressure 97/53 L 101/61 133/70 Pulse Oximetry 93 95 96 05/14/19 14:00 05/14/19 16:00 05/14/19 16:57 Temperature 36.8 C Pulse Rate 80 83 82 Respiratory Rate 20 20 Blood Pressure 167/74 H Pulse Oximetry 97 05/14/19 17:08 05/14/19 17:57 05/14/19 20:00 Temperature 36.9 C Pulse Rate 82 80 79 Respiratory Rate 20 18 Blood Pressure 159/82 H Pulse Oximetry 97 05/14/19 20:36 05/14/19 22:00 05/15/19 00:00 Temperature 37.3 C Pulse Rate 81 81 85 Respiratory Rate 18 Blood Pressure 154/73 H Pulse Oximetry 97 05/15/19 02:00 05/15/19 04:00 05/15/19 04:29 Temperature 37.2 C Pulse Rate 88 88 92 Respiratory Rate 18 18 Blood Pressure 146/89 H Pulse Oximetry 92 92 05/15/19 05:51 05/15/19 08:13 Temperature 37.3 C Pulse Rate 86 87 Respiratory Rate 17 Blood Pressure 174/86 H Pulse Oximetry 95 Intake/Output Intake/Output: Intake & Output 05/12/19 05/13/19 05/14/19 05/15/19 23:59 23:59 23:59 23:59 Intake Total 860 4540 100 Output Total 800 100 300 Balance 60 4440 -200 Meds/Results Medications: Active Medications Generic Name Dose Route Start Last Admin Trade Name Freq PRN Reason Stop Dose Admin Albuterol 2.5 mg 05/14/19 16:37 05/14/19 16:56 Albuterol Sulf Neb 2.5mg/0.5ml INHALATION 2.5 mg Q6HRT PRN Administration Shortness Of Breath Allopurinol 100 mg 05/14/19 08:00 05/14/19 08:28 Zyloprim PO 100 mg DAILY@0800 LYLE Administration Carvedilol 25 mg 05/13/19 22:45 05/14/19 20:36 Coreg PO 25 mg Q12HR LYLE Administration Clonidine HCl 0.1 mg 05/13/19 22:45 05/14/19 16:32 Catapres PO 0.1 mg BID LYLE Administration Fluticasone Propionate 1 spray 05/14/19 09:00 05/14/19 08:28 Flonase 0.05% Nasal [place] NASAL 1 spray DAILY LYLE Administration Hydralazine HCl 10 mg 05/13/19 22:45 05/14/19 20:36 Apresoline Tablet PO 10 mg WMHS LYLE Administration Aztreonam 1 gm/ Dextrose 50 mls @ 100 mls/hr 05/14/19 21:00 05/14/19 21:12 IVPB Infused Q12HR LYLE Infusion Metronidazole 500 mg in 100 mls @ 100 mls/hr 05/14/19 21:00 05/15/19 05:28 Flagyl 500 Mg/Iso Soln 100 Ml IVPB Infused Q8H LYLE Infusion Ipratropium [place] 0.5 mg 05/14/19 16:36 05/14/19 16:56 Atrovent Neb INHALATION 0.5 mg Q6HRT PRN Administration Shortness Of Breath Lidocaine HCl 0.3 ml 05/14/19 08:09 Xylocaine 2% Local Inj INTRADERM ONCE PRN to n
[2019-05-15] MEDS: AZTREONAM 1 GM in DEXTROSE 5% IN WATER 50 ML IVPB ×2 (09:40→20:41)
[2019-05-15] MEDS: PANTOPRAZOLE SODIUM IV 40 MG VIAL IV PUSH ×2 (09:41→20:39)
[2019-05-15] MEDS: hydrALAZINE 10 MG TABLET PO ×4 (09:42→20:38)
[2019-05-15] MEDS: carvediloL 25 MG TABLET PO ×2 (09:42→20:38)
[2019-05-15] MEDS: allopurinoL 100 MG TABLET PO (09:42)
[2019-05-15] MEDS: MONTELUKAST SODIUM 10 MG TABLET PO (09:42)
[2019-05-15] MEDS: CLONIDINE HCL 0.1 MG TABLET PO ×2 (09:42→18:56)
--- NOTE | 2019-05-15 16:35 | PM.IMPN ---
Progress Note: A&P Assessment and Plan (1) Acute GI bleeding: Code(s): K92.2 - Gastrointestinal hemorrhage, unspecified Status: Inactive Assessment and Plan: 05/15/19 16:35 Patient is 78-year-old female with a history of chronic anemia diverticulitis initially patient presented to outside [facility] with a complaint of black tarry stool and eventually turn into bright red blood patient patient was transfused and transferred to the inpatient hospital for further evaluation patient is seen by GI, and patient is scheduled for colonoscopy later today, her 2 daughters are present in the room, today patient denies any abdominal pain nausea vomiting or rectal bleeding, her last colonoscopy was in October of 2018 and did not show any significant pathology Patient had colonoscopy on 05/14 showed inflammed colon and GI was not able to pass scope and suspicious for infection patient started on a broad-spectrum antibiotic patient also EGD and show gastritis being treated with a Protonix, today patient is feeling better denies any abdominal pain nausea or vomiting see did have a small bowel movement there was no bleeding, patient denies any fever or chills her daughter is present in the room (2) Acute on chronic blood loss anemia: Code(s): D62 - Acute posthemorrhagic anemia Status: Acute Assessment and Plan: She will be transfused to a stable hemoglobin. Will monitor hemoglobin and hematocrit closely. Should she have recurrent bleeding, would consider platelet transfusion. (3) Hypertension: Code(s): I10 - Essential (primary) hypertension Status: Acute Assessment and Plan: Blood pressures were reviewed and they are running in the 150s to 160 systolic. For now will continue with her antihypertensives and monitor closely. (4) Chronic kidney disease, stage 4 (severe): Code(s): N18.4 - Chronic kidney disease, stage 4 (severe) Status: Acute Assessment and Plan: Creatinine is stable on review of previous labs and will be monitored. (5) Pancytopenia: Code(s): D61.818 - Other pancytopenia Status: Acute Assessment and Plan: Patient with pancytopenia chronic clinically stable will consult dental hygienist mobile coordinator for further recommendation Subjective Date/time seen: 05/15/19 16:35 Patient is 78-year-old female with a history of chronic anemia diverticulitis initially patient presented to outside [facility] with a complaint of black tarry stool and eventually turn into bright red blood patient patient was transfused and transferred to the inpatient hospital for further evaluation patient is seen by GI, and patient is scheduled for colonoscopy later today, her 2 daughters are present in the room, today patient denies any abdominal pain nausea vomiting or rectal bleeding, her last colonoscopy was in October of 2018 and did not show any significant pathology Patient had colonoscopy on 05/14 showed inflammed colon and GI was not able to pass scope and suspicious for infection patient started on a broad-spectrum antibiotic patient also EGD and show gastritis being treated with a Protonix, today patient is feeling better denies any abdominal pain nausea or vomiting see did have a small bowel movement there was no bleeding, patient denies any fever or chills her daughter is present in the room Review of Systems Review of Systems: All systems reviewed & are unremarkable except as noted in HPI and below Exam Narrative: Exam Narrative: Elderly frail Const: General: comfortable and no acute distress HENMT: General nose exam: Normal nares present Mouth: Yes moist mucous membranes Eyes: General: appearance normal, both eyes and all related structures Sclera: sclerae normal Neck: Neck: supple Resp: Effort & Inspection: normal respiratory effort Auscultation: clear to auscultation bilaterally Cardio: Rate: regular rate Rhythm: regular rhythm GI: Auscul
[2019-05-15] MEDS: FLUTICASONE PROPIONATE 0.05% NA SPR 16 GM BTL (*BKC) 1 SPRAY NASAL (20:37)
[2019-05-16] VITALS (19 sets, daily range): BP systolic 113–145; BP diastolic 61–82; PULSE 69–92; RESP 16–18; TEMP 36.2–37.6; O2SAT 96–100
[2019-05-16 04:43] LABS: Hematocrit 29.2 % (37.0-47.0); Hemoglobin 9.5 g/dL (12.0-15.0); Immature Platelet Fraction Pct 5.5 % (0.9-11.2); Mean Corpuscular HGB Conc 32.5 g/dl (32-36); Mean Corpuscular Hemoglobin 31.4 pg (26-34); Mean Corpuscular Volume 96.4 fl (80-100); Mean Platelet Volume 11.6 fl (7.4-10.4); Platelet Count Result 40 k/mm3 (150-375); Red Blood Count 3.03 M/mm3 (4.2-5.4); Red Cell Distribution Width 17.6 % (11.5-14.5); White Blood Count 4.4 K/mm3 (4.5-10.0)
[2019-05-16 05:01] LABS: Albumin Level 2.2 g/dL (3.5-5.1); Blood Urea Nitrogen 54 mg/dL (7-17); Calcium 8.6 mg/dL (8.4-10.2); Carbon Dioxide 22 mmol/L (22-30); Chloride 96 mmol/L (98-107); Estimated CRCL calculation 17 ml/min; Estimated Glomerular Filt Rate 20; Glucose 86 mg/dL (65-105); Phosphorus 3.6 mg/dL (2.5-4.5); Sodium 128 mmol/L (137-145)
[2019-05-16] MEDS: metroNIDAZOLE 500 MG/ISO 100ML 500 MG/100 ML BAG 100 MG IVPB ×3 (05:35→20:17)
--- NOTE | 2019-05-16 08:22 | WPDGIPROGNO ---
Progress Note: A&P Additional Plan Patient alert this morning. Continues to notice abdominal discomfort primarily in left lower quadrant. Passing flatus and stool. Physical exam reveals patient to be alert. Afebrile. Lungs are clear. Abdomen bowel sounds are present soft with mild left lower quadrant discomfort. CT scan confirms diverticulitis. Pericolonic abscess described. She also is noted to have gallstones. A left renal mass is also noted. Labs reveal WBC 4.4, hemoglobin 9.5, hematocrit 29.2, MCV 96. Platelets are 40,000. BUN 54, creatinine 2.4. Impression 1. Diverticulitis with abscess. This is recurrent. She had diverticulitis last summer as well. Because of recurrent diverticulitis surgical therapy may ultimately be required. Broad-spectrum antibiotic coverage is currently advised. Patient has significant comorbid disease in this would be high risk. 2. Gastric ulcer. Identified at time of endoscopy. Patient will benefit from proton pump inhibitor. Avoid nonsteroidal anti-inflammatory agents. Consider follow-up EGD in 2 months. 3. Renal insufficiency. 4. Thrombocytopenia. Previously followed by Hematology of [facility]. I am uncertain of etiology. She may benefit from hematology follow-up. Plan is for continued broad-spectrum antibiotic coverage . consider surgical opinion of recurring diverticulitis with abscess.. Subjective Date/time seen: 05/16/19 08:22 Objective Data Vital Signs Vital Signs: Vital Signs - 24 hr 05/15/19 09:42 05/15/19 10:00 05/15/19 12:00 Temperature Pulse Rate 83 85 80 Respiratory Rate 18 Blood Pressure Pulse Oximetry 96 05/15/19 13:05 05/15/19 14:00 05/15/19 15:45 Temperature 36.8 C 37.1 C Pulse Rate 90 79 80 Respiratory Rate 18 17 Blood Pressure 167/77 H 150/79 H Pulse Oximetry 96 100 05/15/19 16:00 05/15/19 18:00 05/15/19 19:55 Temperature 36.9 C Pulse Rate 79 92 77 Respiratory Rate 17 18 Blood Pressure 133/64 Pulse Oximetry 100 97 05/15/19 20:00 05/15/19 20:38 05/15/19 22:00 Temperature 36.6 C Pulse Rate 77 77 77 Respiratory Rate 16 Blood Pressure 122/62 Pulse Oximetry 97 05/16/19 00:00 05/16/19 02:00 05/16/19 03:53 Temperature 36.9 C Pulse Rate 77 76 77 Respiratory Rate 16 Blood Pressure 145/73 H Pulse Oximetry 96 05/16/19 04:00 05/16/19 06:00 05/16/19 08:09 Temperature 37.1 C Pulse Rate 76 81 84 Respiratory Rate 18 Blood Pressure 135/82 Pulse Oximetry 97 Intake/Output Intake/Output: Intake & Output 05/13/19 05/14/19 05/15/19 05/16/19 23:59 23:59 23:59 23:59 Intake Total 860 4540 1114 Output Total 800 646 234 8610 Balance 60 4413 264 1150 Meds/Results Medications: Active Medications Generic Name Dose Route Start Last Admin Trade Name Freq PRN Reason Stop Dose Admin Albuterol 2.5 mg 05/14/19 16:37 05/14/19 16:56 Albuterol Sulf Neb 2.5mg/0.5ml INHALATION 2.5 mg Q6HRT PRN Administration Shortness Of Breath Allopurinol 100 mg 05/14/19 08:00 05/15/19 09:42 Zyloprim PO 100 mg DAILY@0800 LYLE Administration Carvedilol 25 mg 05/13/19 22:45 05/15/19 20:38 Coreg PO 25 mg Q12HR LYLE Administration Clonidine HCl 0.1 mg 05/13/19 22:45 05/15/19 18:56 Catapres PO 0.1 mg BID LYLE Administration Fluticasone Propionate 1 spray 05/15/19 21:00 05/15/19 20:37 Flonase 0.05% Nasal [place] NASAL 1 spray HS LYLE Administration Hydralazine HCl 10 mg 05/13/19 22:45 05/15/19 20:38 Apresoline Tablet PO 10 mg WMHS LYLE Administration Aztreonam 1 gm/ Dextrose 50 mls @ 100 mls/hr 05/14/19 21:00 05/15/19 22:28 IVPB Infused Q12HR LYLE Infusion Metronidazole 500 mg in 100 mls @ 100 mls/hr 05/14/19 21:00 05/16/19 05:35 Flagyl 500 Mg/Iso Soln 100 Ml IVPB 100 mls/hr Q8H LYLE Administration Ipratropium [place] 0.5 mg 05/14/19 16:36 05/14/19 16:56 Atrovent Neb INHALATION 0.5 mg Q6HRT PRN Administrat
[2019-05-16] MEDS: POTASSIUM CHLORIDE 20 MEQ PACKET (FOR LIQUID) 40 MEQ PO (10:05)
[2019-05-16] MEDS: AZTREONAM 1 GM in DEXTROSE 5% IN WATER 50 ML IVPB ×2 (10:06→20:17)
[2019-05-16] MEDS: MONTELUKAST SODIUM 10 MG TABLET PO (10:08)
[2019-05-16] MEDS: hydrALAZINE 10 MG TABLET PO ×3 (10:08→20:17)
[2019-05-16] MEDS: PANTOPRAZOLE SODIUM IV 40 MG VIAL IV PUSH ×2 (10:08→20:16)
[2019-05-16] MEDS: carvediloL 25 MG TABLET PO ×2 (10:08→20:17)
[2019-05-16] MEDS: allopurinoL 100 MG TABLET PO (10:08)
[2019-05-16] MEDS: SIMVASTATIN 10 MG TABLET PO (10:08)
[2019-05-16] MEDS: CLONIDINE HCL 0.1 MG TABLET PO ×2 (10:09→17:07)
--- NOTE | 2019-05-16 12:07 | PM.CNGS ---
Assessment and Plan Assessment and plan (1) Diverticulitis of large intestine with perforation and abscess with bleeding: Code(s): K57.21 - Diverticulitis of large intestine with perforation and abscess with bleeding Status: Acute Assessment and Plan: Patient has evidence of diverticulitis on CT, but she does not have many symptoms other than the bleeding. At this point bleeding has resolved. She is on broad-spectrum antibiotics already. She is tolerating a clear liquid diet. Will advance her to a full liquid diet and continue to follow for any signs of recurrent bleeding or worsening pain. Discussed that if she does have worsening signs, she may require urgent surgical exploration. If she recovers from this episode, we could discuss possible elective colectomy to prevent recurrent attacks. Patient does have multiple other comorbidities though and this would make surgery more high risk. (2) Pancytopenia: Code(s): D61.818 - Other pancytopenia Status: Chronic (3) Acute on chronic blood loss anemia: Code(s): D62 - Acute posthemorrhagic anemia Status: Acute (4) Chronic kidney disease, stage 4 (severe): Code(s): N18.4 - Chronic kidney disease, stage 4 (severe) Status: Chronic History of Present Illness Consult details Consult date: 05/16/19 Narrative: This is a 78-year-old woman who I am asked to see in regards to diverticular abscess. She was admitted to the hospital with profound anemia and GI bleed. She was not complaining of any significant abdominal pain. She does have a history of chronic anemia secondary to chronic kidney disease. She began noticing some blood in her stool 4 or 5 days ago. Prior to this she was not complaining of any frequent blood in her stool. She underwent EGD and colonoscopy by Dr. Blas 2 days ago. During colonoscopy, she was found to have significant inflammation in the sigmoid colon and the scope was not unable to be passed beyond this point. A CT of her abdomen and pelvis was then obtained after the colonoscopy. This showed evidence of diverticulitis with 2 small abscesses. She did have an episode of diverticulitis and lower GI bleed about 9 months ago. Prior to that she did not have any significant history of diverticulitis. Review of Systems Review of Systems: All systems reviewed & are unremarkable except as noted in HPI and below Constitutional: Constitutional: Denies chills, Reports fatigue, Denies fever(s) and Reports weakness Eyes: Eyes: Denies change in vision ENT: Denies hearing loss, Denies neck pain and Denies sore throat Cardiovascular: Cardiovascular: Denies chest pain and Denies dyspnea Respiratory: Respiratory: Denies cough, Denies dyspnea and Denies wheezing Gastrointestinal: Gastrointestinal: Denies abdominal pain, Reports melena and Reports hematochezia Genitourinary: Genitourinary: Denies hematuria and Denies dysuria Musculoskeletal: Musculoskeletal: Denies arthralgias, Denies joint swelling and Denies neck pain Hematologic/Lymphatic: Hematologic/Lymphatic: Reports easy bleeding, Reports easy bruising and Reports other (low platelets and chronic anemia) Allergic/Immunologic: Allergic/Immunologic: Denies wheezing PMFSH Past Medical History Medical History Breast cancer Carcinoma in situ, status post lumpectomy and radiation therapy. Chronic anemia She is a patient of Dr. Telles at [place]. A bone marrow biopsy done about 5 years ago was reportedly unremarkable. Chronic kidney disease, stage 4 (severe) Baseline creatinine around 3.0. Diverticular disease Diverticulitis of colon with perforation Summer 2018, hospitalized at [place]. Diverticulosis of colon with hemorrhage Summer 2018. Gout Hyperlipidemia Hypertension Surgical History Surgical History Status post hip surgery Left hip screw. S
[2019-05-16 13:17] LABS: Blood Urea Nitrogen 51 mg/dL (7-17); Calcium 8.5 mg/dL (8.4-10.2); Carbon Dioxide 23 mmol/L (22-30); Chloride 93 mmol/L (98-107); Estimated CRCL calculation 15 ml/min; Estimated Glomerular Filt Rate 18; Glucose 99 mg/dL (65-105); Magnesium 1.3 mg/dL (1.6-2.3); Potassium 4.4 mmol/L (3.4-5.0); Sodium 128 mmol/L (137-145)
--- NOTE | 2019-05-16 13:48 | WPDONCCN ---
Assessment and Plan Assessment and plan (1) Pancytopenia: Code(s): D61.818 - Other pancytopenia Status: Chronic Assessment and Plan: 1. Multifactorial: - anemia due to CKD - anemia due to lower GIB - low grade MDS 2. Pt instructed to stop ASA and avoid NSAIDs and fish oil as long as the platelet count < 50k 3. No need for BMBX since BMBX in 2016 showed low grade MDS./ no major changes in her counts over past 2 - 3 years 4. will check SPEP and Ig levels but no other w/u is needed at this admission 5. after discharge patient to f/u with Dr. Telles as scheduled 6. monitor CBC daily while here for any worsening of counts (2) Chronic anemia: Code(s): D64.9 - Anemia, unspecified Status: Acute Assessment and Plan: due to CKD and MDS 1. after discharge patient to f/u with Dr. Chin for CBC monitoring and Epogen injections which seems to be maintaining her counts (3) Breast cancer: Code(s): C50.919 - Malignant neoplasm of unspecified site of unspecified female breast Status: Acute Assessment and Plan: no clinical or radiographic signs of recurrent disease pt to f/u with dr. Freeman at [facility] as scheduled (4) Acute on chronic blood loss anemia: Code(s): D62 - Acute posthemorrhagic anemia Status: Acute Assessment and Plan: due to GIB from acute diverticulitis improved after PRBC transfusions HPI Data of Consult Date/Time: 05/16/19 13:48 Requesting Physician: Jerrell Guzman MD Primary Care Provider: Susie Mobley MD Consult Narrative Narrative: Grecia Patterson is a 78 year old female with h/o anemia of CKD on Epogen, ?MDS and diverticulosis. She presents with hematochezia and lower rectal pain. Denied any fever but became diaphoretic and weak. Daughters brought her here to ER for eval. CT showed acute diverticulitis with abscess and Hb of 4.8 Pt admitted and transfused wit blood and Hb increased up to 9.5. Plt count was low at 30K but no climbed to its baseline at [address] Blas was consulted and performed EGD and sigmoidoscopy. He found purulent drainage from one of the diverticula and bleeding focus with erythema of the sigmoid colon. She was placed on IV abx with resolution of infection and bleeding. I was asked to eval her cytopenias Review of her EPIC record and [facility] records showed : no HSM, no leukemia, no lyphoma, no myeloma, possible low grade MDS and has anemia of CKD. DX in 2014: stage I BRCA - no adjuvant RT or chemo 2015: TCP/ anemia; BMBX showed dyspoiesis without any chromosomal or mutational changes Repeated CT scans over the years showed no HSM or malignancy Dr. Telles has performed extensive w/u and found no other causes of her cytopenias Baseline Hb x 5 years : 9 - 10 gm/dl Baseline plt count x 5 yrs: 40 - 75k She denies any B-type s/s or change in her condition prior to her GI infection Review of Systems Constitutional: Constitutional: Denies fatigue, Denies frequent falls and Reports weakness ENT: Reports dry mouth and Denies disequilibrium Cardiovascular: Cardiovascular: Denies chest pain and Reports dyspnea on exertion Respiratory: Respiratory: Denies chest congestion and Reports dyspnea on exertion Gastrointestinal: Gastrointestinal: Reports as per HPI, Reports hematochezia and Reports diarrhea Genitourinary: Genitourinary: Reports nocturia Musculoskeletal: Musculoskeletal: Reports abnormal gait and Reports muscle weakness Neurologic: Reports abnormal gait, Denies dizziness and Reports weakness Psychiatric: Psychiatric: Denies confusion and Denies depression Hematologic/Lymphatic: Hematologic/Lymphatic: Reports easy bleeding and Reports easy bruising PMF Past Medical History Medical History Breast cancer Carcinoma in situ, status post lumpectomy and radiation therapy. Chronic anemia Sh
--- NOTE | 2019-05-16 16:23 | PM.IMPN ---
Progress Note: A&P Assessment and Plan (1) Acute GI bleeding: Code(s): K92.2 - Gastrointestinal hemorrhage, unspecified Status: Inactive Assessment and Plan: Patient is 78-year-old female with a history of chronic anemia diverticulitis initially patient presented to outside [facility] with a complaint of black tarry stool and eventually turn into bright red blood patient patient was transfused and transferred to the inpatient hospital for further evaluation patient is seen by GI, and patient is scheduled for colonoscopy later today, her 2 daughters are present in the room, today patient denies any abdominal pain nausea vomiting or rectal bleeding, her last colonoscopy was in October of 2018 and did not show any significant pathology Patient had colonoscopy on 05/14 showed inflammed colon and GI was not able to pass scope and suspicious for infection patient started on a broad-spectrum antibiotic patient also EGD and show gastritis being treated with a Protonix, today patient is feeling better denies any abdominal pain nausea or vomiting she did have a small bowel movement there was no bleeding, patient denies any fever or chills her daughter is present in the room Ct of abdomen showed diverticulitis with abscess similar to seen with colonoscopy and patient was diagnosed with diverticulitis last October, patient has a recurrent diverticulitis will consult surgery for further recommendation, the scan showed possible renal mass, will consult armored transport service manager oncologist as patient has a pancytopenia (2) Acute on chronic blood loss anemia: Code(s): D62 - Acute posthemorrhagic anemia Status: Acute Assessment and Plan: She will be transfused to a stable hemoglobin. Will monitor hemoglobin and hematocrit closely. Should she have recurrent bleeding, would consider platelet transfusion. (3) Hypertension: Code(s): I10 - Essential (primary) hypertension Status: Acute Assessment and Plan: Blood pressures were reviewed and they are running in the 150s to 160 systolic. For now will continue with her antihypertensives and monitor closely. (4) Chronic kidney disease, stage 4 (severe): Code(s): N18.4 - Chronic kidney disease, stage 4 (severe) Status: Chronic Assessment and Plan: Creatinine is stable on review of previous labs and will be monitored. (5) Pancytopenia: Code(s): D61.818 - Other pancytopenia Status: Chronic Assessment and Plan: Patient with pancytopenia chronic clinically stable will consult armored transport service manager for further recommendation Subjective Date/time seen: 05/16/19 Patient is 78-year-old female with a history of chronic anemia diverticulitis initially patient presented to outside [facility] with a complaint of black tarry stool and eventually turn into bright red blood patient patient was transfused and transferred to the inpatient hospital for further evaluation patient is seen by GI, and patient is scheduled for colonoscopy later today, her 2 daughters are present in the room, today patient denies any abdominal pain nausea vomiting or rectal bleeding, her last colonoscopy was in October of 2018 and did not show any significant pathology Patient had colonoscopy on 05/14 showed inflammed colon and GI was not able to pass scope and suspicious for infection patient started on a broad-spectrum antibiotic patient also EGD and show gastritis being treated with a Protonix, today patient is feeling better denies any abdominal pain nausea or vomiting she did have a small bowel movement there was no bleeding, patient denies any fever or chills her daughter is present in the room Ct of abdomen showed diverticulitis with abscess similar to seen with colonoscopy and patient was diagnosed with diverticulitis last October, patient has a recurrent diverticulitis will consult surgery for further recommendation, the scan showed possible renal mass, will consult hemato
[2019-05-16] MEDS: FLUTICASONE PROPIONATE 0.05% NA SPR 16 GM BTL (*BKC) 1 SPRAY NASAL (20:16)
[2019-05-17] VITALS (15 sets, daily range): BP systolic 105–140; BP diastolic 57–87; PULSE 66–86; RESP 16–20; TEMP 36.7–37.6; O2SAT 95–99
[2019-05-17 05:00] LABS: Hematocrit 27.2 % (37.0-47.0); Hemoglobin 8.7 g/dL (12.0-15.0); Immature Platelet Fraction Pct 6.9 % (0.9-11.2); Mean Corpuscular Hemoglobin 31.3 pg (26-34); Mean Corpuscular Volume 97.8 fl (80-100); Mean Platelet Volume 11.3 fl (7.4-10.4); Platelet Count Result 42 k/mm3 (150-375); Red Blood Count 2.78 M/mm3 (4.2-5.4); Red Cell Distribution Width 17.2 % (11.5-14.5)
[2019-05-17 05:20] LABS: Immunoglobulin A 356 mg/dL (70-400); Immunoglobulin G 1018 mg/dL (700-1600); Immunoglobulin M 78 mg/dL (40-230)
[2019-05-17 05:21] LABS: Albumin Level 2.2 g/dL (3.5-5.1); Blood Urea Nitrogen 55 mg/dL (7-17); Calcium 8.3 mg/dL (8.4-10.2); Carbon Dioxide 22 mmol/L (22-30); Chloride 93 mmol/L (98-107); Estimated CRCL calculation 16 ml/min; Estimated Glomerular Filt Rate 19; Glucose 86 mg/dL (65-105); Phosphorus 3.3 mg/dL (2.5-4.5); Sodium 127 mmol/L (137-145)
[2019-05-17] MEDS: metroNIDAZOLE 500 MG/ISO 100ML 500 MG/100 ML BAG 100 MG IVPB ×3 (05:22→19:00)
[2019-05-17 05:59] LABS: CRP 8.1 mg/dL (<1.0)
--- NOTE | 2019-05-17 08:06 | WPDGIPROGNO ---
Progress Note: A&P Additional Plan Patient alert and comfortable this morning. She continues to passed bowel movements without difficulty. She denies any blood in her stools. She denies any significant abdominal pain at this time. Physical exam reveals her to be alert. Vital signs stable. HEENT exam unremarkable. Lungs are clear. Heart without murmur. Abdomen bowel sounds are present soft and no localized tenderness present today. Labs WBC 5.0, hemoglobin 8.7, hematocrit 27.2, Impression 1. Sigmoid diverticulitis. Pericolonic abscess identified on CT scan. Patient has partial large bowel obstruction. Unable to pass endoscope beyond this area. 2. Gastric ulcer. Patient now on proton pump inhibitor. No active symptoms. Follow-up EGD in 2 months advised. 3. Thrombocytopenia. Followed by a Hematology at [facility]. 4. History of breast cancer. Plan is to continue broad-spectrum antibiotics. Follow-up CT scan after an interval to assess abscess is advised. Surgery is now following along with this. Eventual sigmoid resection may be of benefit if her comorbid diseases improved. Because of gastric ulcer she will remain on proton pump inhibitors. Avoid nonsteroidal anti-inflammatory agents follow-up EGD in 2 months advised. Subjective Date/time seen: 05/17/19 08:06 Objective Data Vital Signs Vital Signs: Vital Signs - 24 hr 05/16/19 08:09 05/16/19 10:00 05/16/19 10:08 Temperature 37.1 C Pulse Rate 84 92 87 Respiratory Rate 18 Blood Pressure 135/82 Pulse Oximetry 97 05/16/19 12:00 05/16/19 12:35 05/16/19 14:00 Temperature 36.2 C L Pulse Rate 69 71 77 Respiratory Rate 16 16 Blood Pressure 118/68 Pulse Oximetry 100 100 05/16/19 16:00 05/16/19 17:51 05/16/19 18:00 Temperature 37.6 C H Pulse Rate 78 78 78 Respiratory Rate 18 18 Blood Pressure 115/69 Pulse Oximetry 100 100 05/16/19 19:54 05/16/19 20:00 05/16/19 20:17 Temperature 37.2 C Pulse Rate 80 77 81 Respiratory Rate 18 18 Blood Pressure 113/61 Pulse Oximetry 99 99 05/16/19 22:00 05/17/19 00:00 05/17/19 02:00 Temperature 36.8 C Pulse Rate 76 82 79 Respiratory Rate 18 Blood Pressure 130/62 Pulse Oximetry 96 05/17/19 04:00 05/17/19 04:30 05/17/19 06:00 Temperature 36.7 C Pulse Rate 84 86 80 Respiratory Rate 18 16 Blood Pressure 134/87 Pulse Oximetry 97 Intake/Output Intake/Output: Intake & Output 05/14/19 05/15/19 05/16/19 05/17/19 23:59 23:59 23:59 23:59 Intake Total 4540 1114 1420 100 Output Total 996 515 0846 500 Balance 4440 997 -230 400 Meds/Results Medications: Active Medications Generic Name Dose Route Start Last Admin Trade Name Freq PRN Reason Stop Dose Admin Albuterol 2.5 mg 05/14/19 16:37 05/14/19 16:56 Albuterol Sulf Neb 2.5mg/0.5ml INHALATION 2.5 mg Q6HRT PRN Administration Shortness Of Breath Allopurinol 100 mg 05/14/19 08:00 05/16/19 10:08 Zyloprim PO 100 mg DAILY@0800 LYLE Administration Carvedilol 25 mg 05/13/19 22:45 05/16/19 20:17 Coreg PO 25 mg Q12HR LYLE Administration Clonidine HCl 0.1 mg 05/13/19 22:45 05/16/19 17:07 Catapres PO 0.1 mg BID LYLE Administration Fluticasone Propionate 1 spray 05/15/19 21:00 05/16/19 20:16 Flonase 0.05% Nasal [place] NASAL 1 spray HS LYLE Administration Hydralazine HCl 10 mg 05/13/19 22:45 05/16/19 20:17 Apresoline Tablet PO 10 mg WMHS LYLE Administration Aztreonam 1 gm/ Dextrose 50 mls @ 100 mls/hr 05/14/19 21:00 05/16/19 21:11 IVPB Infused Q12HR LYLE Infusion Metronidazole 500 mg in 100 mls @ 100 mls/hr 05/14/19 21:00 05/17/19 06:22 Flagyl 500 Mg/Iso Soln 100 Ml IVPB Infused Q8H LYLE Infusion Ipratropium [place] 0.5 mg 05/14/19 16:36 05/14/19 16:56 Atrovent Neb INHALATION 0.5 mg Q6HRT PRN Administration Shortness Of Breath Lidocaine HCl 0.3 ml 05/14/19 08:09 Xylocaine 2% Local Inj INTRADERM ONC
[2019-05-17] MEDS: MONTELUKAST SODIUM 10 MG TABLET PO (09:11)
[2019-05-17] MEDS: SIMVASTATIN 10 MG TABLET PO (09:11)
[2019-05-17] MEDS: PANTOPRAZOLE SODIUM IV 40 MG VIAL IV PUSH ×2 (09:11→20:03)
[2019-05-17] MEDS: hydrALAZINE 10 MG TABLET PO ×4 (09:11→20:03)
[2019-05-17] MEDS: CLONIDINE HCL 0.1 MG TABLET PO ×2 (09:11→17:28)
[2019-05-17] MEDS: carvediloL 25 MG TABLET PO ×2 (09:11→20:03)
[2019-05-17] MEDS: allopurinoL 100 MG TABLET PO (09:11)
[2019-05-17] MEDS: AZTREONAM 1 GM in DEXTROSE 5% IN WATER 50 ML IVPB ×2 (09:12→20:02)
--- NOTE | 2019-05-17 12:22 | WPDINFPN2 ---
Progress Note: A&P Assessment and Plan (1) Diverticulitis of large intestine with perforation and abscess with bleeding: Code(s): K57.21 - Diverticulitis of large intestine with perforation and abscess with bleeding Status: Acute Assessment and Plan: 1. Diverticulitis 2. Multiple allergies REC Aztreonam and Metronidazole # 4 / 10 days. Subjective Date/time seen: 05/17/19 12:22 Objective Data Vital Signs Vital Signs: Vital Signs - 24 hr 05/16/19 12:35 05/16/19 14:00 05/16/19 16:00 Temperature 36.2 C L Pulse Rate 71 77 78 Respiratory Rate 16 18 Blood Pressure 118/68 Pulse Oximetry 100 100 05/16/19 17:51 05/16/19 18:00 05/16/19 19:54 Temperature 37.6 C H 37.2 C Pulse Rate 78 78 80 Respiratory Rate 18 18 Blood Pressure 115/69 113/61 Pulse Oximetry 100 99 05/16/19 20:00 05/16/19 20:17 05/16/19 22:00 Temperature Pulse Rate 77 81 76 Respiratory Rate 18 Blood Pressure Pulse Oximetry 99 05/17/19 00:00 05/17/19 02:00 05/17/19 04:00 Temperature 36.8 C Pulse Rate 82 79 84 Respiratory Rate 18 18 Blood Pressure 130/62 Pulse Oximetry 96 05/17/19 04:30 05/17/19 06:00 05/17/19 08:00 Temperature 36.7 C 36.9 C Pulse Rate 86 80 77 Respiratory Rate 16 18 Blood Pressure 134/87 140/69 Pulse Oximetry 97 97 05/17/19 09:11 05/17/19 10:00 Temperature Pulse Rate 78 78 Respiratory Rate Blood Pressure Pulse Oximetry Intake/Output Intake/Output: Intake & Output 05/14/19 05/15/19 05/16/19 05/17/19 23:59 23:59 23:59 23:59 Intake Total 4540 1114 1420 100 Output Total 961 437 1052 500 Balance 4496 538 -502 -989 Meds/Results Medications: Active Medications Generic Name Dose Route Start Last Admin Trade Name Freq PRN Reason Stop Dose Admin Albuterol 2.5 mg 05/14/19 16:37 05/14/19 16:56 Albuterol Sulf Neb 2.5mg/0.5ml INHALATION 2.5 mg Q6HRT PRN Administration Shortness Of Breath Allopurinol 100 mg 05/14/19 08:00 05/17/19 09:11 Zyloprim PO 100 mg DAILY@0800 LYLE Administration Carvedilol 25 mg 05/13/19 22:45 05/17/19 09:11 Coreg PO 25 mg Q12HR LYLE Administration Clonidine HCl 0.1 mg 05/13/19 22:45 05/17/19 09:11 Catapres PO 0.1 mg BID LYLE Administration Fluticasone Propionate 1 spray 05/15/19 21:00 05/16/19 20:16 Flonase 0.05% Nasal [place] NASAL 1 spray HS LYLE Administration Hydralazine HCl 10 mg 05/13/19 22:45 05/17/19 09:11 Apresoline Tablet PO 10 mg WMHS LYLE Administration Aztreonam 1 gm/ Dextrose 50 mls @ 100 mls/hr 05/14/19 21:00 05/17/19 09:12 IVPB 100 mls/hr Q12HR LYLE Administration Metronidazole 500 mg in 100 mls @ 100 mls/hr 05/14/19 21:00 05/17/19 06:22 Flagyl 500 Mg/Iso Soln 100 Ml IVPB Infused Q8H LYLE Infusion Ipratropium [place] 0.5 mg 05/14/19 16:36 05/14/19 16:56 Atrovent Neb INHALATION 0.5 mg Q6HRT PRN Administration Shortness Of Breath Lidocaine HCl 0.3 ml 05/14/19 08:09 Xylocaine 2% Local Inj INTRADERM ONCE PRN to numb area Montelukast Sodium 10 mg 05/14/19 09:00 05/17/19 09:11 Singulair PO 10 mg DAILY LYLE Administration Ondansetron HCl 4 mg 05/13/19 22:20 05/13/19 22:55 Zofran Inj IV PUSH 4 mg Q6H PRN Administration Nausea And Vomiting Pantoprazole Sodium 40 mg 05/14/19 21:00 05/17/19 09:11 Protonix Iv IV PUSH 40 mg Q12HR LYLE Administration Simvastatin 10 mg 05/14/19 09:00 05/17/19 09:11 Zocor PO 10 mg DAILY LYLE Administration Radiology Results: ITS Impressions Chest X-Ray 05/14/19 00:12 IMPRESSION: 1. Interstitial and airspace opacities at the lung bases, right greater than left which could represent mild pulmonary edema, atelectasis or pneumonia with possible small right pleural effusion. Abdomen/Pelvis CT 05/15/19 18:20 IMPRESSION: 1. Diverticulitis with a couple small abscesses in the pelvis which currently do not ap
--- NOTE | 2019-05-17 14:38 | PM.PNGS ---
Progress Note: A&P Assessment and Plan (1) Diverticulitis of large intestine with perforation and abscess with bleeding: Code(s): K57.21 - Diverticulitis of large intestine with perforation and abscess with bleeding Status: Acute Assessment and Plan: Continue IV antibiotics Will advance to a soft, low fiber diet today Dietitian consulted for low versus high fiber diet information Continue to monitor for any recurrent bleeding or worsening symptoms Will still plan to treat this episode of diverticulitis and see her as an outpatient to further discuss elective colectomy. (2) Pancytopenia: Code(s): D61.818 - Other pancytopenia Status: Chronic (3) Acute on chronic blood loss anemia: Code(s): D62 - Acute posthemorrhagic anemia Status: Acute (4) Chronic kidney disease, stage 4 (severe): Code(s): N18.4 - Chronic kidney disease, stage 4 (severe) Status: Chronic Subjective Subjective Date/Time Seen: 05/17/19 14:00 Patient reports: no new complaints Interval history: Patient was seen and examined. Chart reviewed. Reports feeling well today. Denies abdominal pain, nausea, vomiting, or bloating. Reports three small bowel movements yesterday and one today. Denies any blood in her stool. No other complaints at this time. Review of Systems Review of Systems: All systems reviewed & are unremarkable except as noted in HPI and below Exam Const: General: alert; No acute distress Orientation/consciousness: patient oriented x3 GI: Inspection: normal to inspection and non-distended GI Palp: No abdominal tenderness, Yes Soft to palpation, No Guarding due to palpation present (GI) and No Rebound tenderness present Auscultation: normal bowel sounds Skin: General skin exam: normal color Neuro: General: moves all extremities and no focal motor deficits Objective Data Vital Signs Vital Signs: Vital Signs - 24 hr 05/16/19 16:00 05/16/19 17:51 05/16/19 18:00 Temperature 37.6 C H Pulse Rate 78 78 78 Respiratory Rate 18 18 Blood Pressure 115/69 Pulse Oximetry 100 100 05/16/19 19:54 05/16/19 20:00 05/16/19 20:17 Temperature 37.2 C Pulse Rate 80 77 81 Respiratory Rate 18 18 Blood Pressure 113/61 Pulse Oximetry 99 99 05/16/19 22:00 05/17/19 00:00 05/17/19 02:00 Temperature 36.8 C Pulse Rate 76 82 79 Respiratory Rate 18 Blood Pressure 130/62 Pulse Oximetry 96 05/17/19 04:00 05/17/19 04:30 05/17/19 06:00 Temperature 36.7 C Pulse Rate 84 86 80 Respiratory Rate 18 16 Blood Pressure 134/87 Pulse Oximetry 97 05/17/19 08:00 05/17/19 09:11 05/17/19 10:00 Temperature 36.9 C Pulse Rate 77 78 78 Respiratory Rate 18 Blood Pressure 140/69 Pulse Oximetry 97 05/17/19 12:00 05/17/19 14:00 Temperature 37.2 C Pulse Rate 71 72 Respiratory Rate 20 Blood Pressure 105/57 L Pulse Oximetry 99 Intake/Output Intake/Output: Intake & Output 05/14/19 05/15/19 05/16/19 05/17/19 23:59 23:59 23:59 23:59 Intake Total 4540 1114 1420 150 Output Total 876 025 0012 500 Balance 4440 255 -230 350 Meds/Results Medications: Active Medications Generic Name Dose Route Start Last Admin Trade Name Freq PRN Reason Stop Dose Admin Albuterol 2.5 mg 05/14/19 16:37 05/14/19 16:56 Albuterol Sulf Neb 2.5mg/0.5ml INHALATION 2.5 mg Q6HRT PRN Administration Shortness Of Breath Allopurinol 100 mg 05/14/19 08:00 05/17/19 09:11 Zyloprim PO 100 mg DAILY@0800 LYLE Administration Carvedilol 25 mg 05/13/19 22:45 05/17/19 09:11 Coreg PO 25 mg Q12HR LYLE Administration Clonidine HCl 0.1 mg 05/13/19 22:45 05/17/19 09:11 Catapres PO 0.1 mg BID LYLE Administration Fluticasone Propionate 1 spray 05/15/19 21:00 05/16/19 20:16 Flonase 0.05% Nasal [place] NASAL 1 spray HS LYLE Administration Hydralazine HCl 10 mg 05/13/19 22:45 05/17/19 12:30 Apresoline Tablet PO 10 mg WMHS LYLE
--- NOTE | 2019-05-17 17:42 | CONS_ITS ---
DATE OF CONSULTATION: 05/17/2019 REASON FOR CONSULTATION: Antibiotic choice for diverticulitis. HISTORY OF PRESENT ILLNESS: The patient is a 78-year-old female who had acute diverticulitis in October 2018, and had a full resolution of symptoms, which included GI hemorrhage at that time. She was admitted here on the with 1 day of bright red blood per rectum without abdominal pain, fever, chills, or sweats. She has been on no antibiotics since October for any reason. Here she has been given aztreonam and metronidazole now day 4 and consultation was requested. She not required any surgical intervention nor is any planned in the immediate future. She did have dizziness and marked weakness in association with her GI hemorrhage. This is slowly improving. She also has chronic anemia and is on erythropoietin as well. Hepatitis recovering. ALLERGIES: CIPROFLOXACIN CAUSED ANAPHYLACTIC REACTION, PENICILLIN CAUSED A DIFFUSE RASH, AND CEPHALEXIN CAUSED POUNDING IN HER EARS. HABITS: One drink per day. No tobacco. PAST MEDICAL HISTORY: In addition to the above, right distal leg deep traumatic laceration, which took over a year to heal did not require skin grafting, but she had some type of biologic covering. 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 FAMILY HISTORY: Dementia, chronic renal failure, breast cancer, and diabetes. SOCIAL HISTORY: Recently last year. She lives in [place] and her 2 daughters live close by and are at the bedside today as well. The patient does not work outside at the home. REVIEW OF SYSTEMS: Low back pain, dizziness, and nausea. A 14-point review otherwise negative. PHYSICAL EXAMINATION: GENERAL: Elderly female, appears her actual age. No acute distress. VITAL SIGNS: T-max 37.6, 140/69, 82, 18, 97% room air. SKIN: No generalized rashes. Warm and dry. EENT: The conjunctivae are normal. Pupils equal, round, and reactive to light. The oropharynx, oral mucosa normal. NECK: No masses, adenopathy, thyromegaly, or meningismus. BACK: Nontender. LUNGS: Clear to auscultation and percussion. CARDIAC: Regular rate and rhythm with a grade 1/6 systolic flow murmur, left sternal border. ABDOMEN: Soft, nontender. No mass. No organomegaly. EXTREMITIES: Chronic hyperpigmentation changes over the both legs, right more marked than the left with traumatic scar visualized. NEUROLOGIC: Awake, alert, and oriented appropriate. LABORATORY DATA: No microbiology is in process. White count of 5.6 on the and 6.2 on previous day, today is 5.0, hemoglobin 8.7, which is down slightly, and platelets are 42. Differential not done earlier showed some mild left shift. She has hyponatremia, hypochloremia. BUN 55, creatinine 2.5, calcium 8.3, transaminases low, and albumin is 2.2. RADIOLOGY DATA: Abdomen and pelvic CT on May 15, diverticulitis with small abscesses, indeterminate left kidney upper pole lesion, pancreatic cyst, pleural effusions, gallstones, and cardiomegaly. ASSESSMENT: 1. Gastrointestinal hemorrhage due to gastric ulcer and acute diverticulitis, symptoms and signs abating. She has had no leukocytosis nor fever. Blood cultures not done and at this time, I do not think sensitivity and specificity would be at all helpful if we did those now. 2. Diverticulosis. 3. Gallstones. 4. Left kidney lesion. 5. Chronic renal insufficiency. RECOMMENDATIONS: 1. Continue aztreonam and metronidazole. Anticipate for another 7 days. 2. Supportive care. 3. Adjust her therapy for renal insufficiency. Thank you very much for asking me see her.
--- NOTE | 2019-05-17 18:45 | PM.IMPN ---
Progress Note: A&P Assessment and Plan (1) Acute GI bleeding: Code(s): K92.2 - Gastrointestinal hemorrhage, unspecified Status: Inactive Assessment and Plan: 05/17/19 18:45 Patient is 78-year-old female with a history of chronic anemia diverticulitis initially patient presented to outside [facility] with a complaint of black tarry stool and eventually turn into bright red blood patient patient was transfused and transferred to the inpatient hospital for further evaluation patient is seen by GI, and patient is scheduled for colonoscopy later today, her 2 daughters are present in the room, today patient denies any abdominal pain nausea vomiting or rectal bleeding, her last colonoscopy was in October of 2018 and did not show any significant pathology Patient had colonoscopy on 05/14 showed inflammed colon and GI was not able to pass scope and suspicious for infection patient started on a broad-spectrum antibiotic patient also EGD and show gastritis being treated with a Protonix, today patient is feeling better denies any abdominal pain nausea or vomiting she did have a small bowel movement there was no bleeding, patient denies any fever or chills her daughter is present in the room Ct of abdomen showed diverticulitis with abscess similar to seen with colonoscopy and patient was diagnosed with diverticulitis last October, patient has a recurrent diverticulitis will consult surgery for further recommendation, the scan showed possible renal mass, patient was seen by Hematology recommended continue with Epogen and monitoring CBC, was seen by general surgery recommended sigmoidectomy was the patient clinically stable for recurrent diverticulitis, seen by GI will continue present management, seen by Dr. oconnell recommended to continue IV antibiotics for another 7 days, patient is feeling better denies any abdominal pain nausea or vomiting see did have a small-bowel no bleeding (2) Acute on chronic blood loss anemia: Code(s): D62 - Acute posthemorrhagic anemia Status: Acute Assessment and Plan: She will be transfused to a stable hemoglobin. Will monitor hemoglobin and hematocrit closely. Should she have recurrent bleeding, would consider platelet transfusion. (3) Hypertension: Code(s): I10 - Essential (primary) hypertension Status: Acute Assessment and Plan: Blood pressures were reviewed and they are running in the 150s to 160 systolic. For now will continue with her antihypertensives and monitor closely. (4) Chronic kidney disease, stage 4 (severe): Code(s): N18.4 - Chronic kidney disease, stage 4 (severe) Status: Chronic Assessment and Plan: Creatinine is stable on review of previous labs and will be monitored. (5) Pancytopenia: Code(s): D61.818 - Other pancytopenia Status: Chronic Assessment and Plan: Patient with pancytopenia chronic clinically stable will consult component assembler supervisor for further recommendation Subjective Date/time seen: 05/17/19 18:45 Patient is 78-year-old female with a history of chronic anemia diverticulitis initially patient presented to outside [facility] with a complaint of black tarry stool and eventually turn into bright red blood patient patient was transfused and transferred to the inpatient hospital for further evaluation patient is seen by GI, and patient is scheduled for colonoscopy later today, her 2 daughters are present in the room, today patient denies any abdominal pain nausea vomiting or rectal bleeding, her last colonoscopy was in October of 2018 and did not show any significant pathology Patient had colonoscopy on 05/14 showed inflammed colon and GI was not able to pass scope and suspicious for infection patient started on a broad-spectrum antibiotic patient also EGD and show gastritis being treated with a Protonix, today patient is feeling better denies any abdominal pain nausea or vomiting she did have a small ann
[2019-05-17] MEDS: FLUTICASONE PROPIONATE 0.05% NA SPR 16 GM BTL (*BKC) 1 SPRAY NASAL (20:03)
--- NOTE | 2019-05-17 21:22 | PC.NURSE ---
PATIENT WAS TRANSFERRED TO [address] [place] [address] ([address]) WITH ALL BELONGINGS. REPORT WAS CALLED TO [facility]. WILL CONTINUE TO MONITOR AND FOLLOW CURRENT PLAN OF CARE.
[2019-05-18] MEDS: metroNIDAZOLE 500 MG/ISO 100ML 500 MG/100 ML BAG 100 MG IVPB ×3 (05:02→22:33)
[2019-05-18 06:00] VITALS: BP 144/64; PULSE 82; RESP 18; TEMP 37.3; O2SAT 97
[2019-05-18 06:13] LABS: Hemoglobin 8.7 g/dL (12.0-15.0); Immature Platelet Fraction Pct 6.9 % (0.9-11.2); Mean Corpuscular HGB Conc 32.2 g/dl (32-36); Mean Corpuscular Hemoglobin 31.3 pg (26-34); Mean Corpuscular Volume 97.1 fl (80-100); Mean Platelet Volume 12.5 fl (7.4-10.4); Platelet Count Result 46 k/mm3 (150-375); Red Blood Count 2.78 M/mm3 (4.2-5.4); White Blood Count 4.6 K/mm3 (4.5-10.0)
[2019-05-18 06:33] LABS: Albumin Level 2.1 g/dL (3.5-5.1); Blood Urea Nitrogen 51 mg/dL (7-17); CRP 7.5 mg/dL (<1.0); Calcium 8.4 mg/dL (8.4-10.2); Carbon Dioxide 20 mmol/L (22-30); Chloride 94 mmol/L (98-107); Estimated CRCL calculation 15 ml/min; Estimated Glomerular Filt Rate 18; Glucose 85 mg/dL (65-105); Phosphorus 3.2 mg/dL (2.5-4.5); Potassium 3.8 mmol/L (3.4-5.0); Sodium 127 mmol/L (137-145)
--- NOTE | 2019-05-18 08:53 | PM.PNGS ---
Progress Note: A&P Assessment and Plan (1) Diverticulitis of large intestine with perforation and abscess with bleeding: Code(s): K57.21 - Diverticulitis of large intestine with perforation and abscess with bleeding Status: Acute Assessment and Plan: Continue Abx per ID Will plan to follow up with patient as outpatient and schedule CT abd/pelvis once this episode has fully resolved Will see prn (2) Pancytopenia: Code(s): D61.818 - Other pancytopenia Status: Chronic (3) Chronic anemia: Code(s): D64.9 - Anemia, unspecified Status: Acute (4) Chronic kidney disease, stage 4 (severe): Code(s): N18.4 - Chronic kidney disease, stage 4 (severe) Status: Chronic Subjective Subjective Date/Time Seen: 05/18/19 08:53 No abdominal pain, bowels moving. No blood in stool. Exam GI: Inspection: normal to inspection GI Palp: Yes Soft to palpation, No Tenderness to palpation present (GI) and No Guarding due to palpation present (GI) Percussion: Yes normal to percussion Auscultation: normal bowel sounds Objective Data Vital Signs Vital Signs: Vital Signs - 24 hr 05/17/19 09:11 05/17/19 10:00 05/17/19 12:00 Temperature 37.2 C Pulse Rate 78 78 71 Respiratory Rate 20 Blood Pressure 105/57 L Pulse Oximetry 99 05/17/19 14:00 05/17/19 16:00 05/17/19 19:31 Temperature 36.8 C 36.7 C Pulse Rate 72 81 76 Respiratory Rate 18 18 Blood Pressure 132/64 121/60 Pulse Oximetry 95 99 05/17/19 20:00 05/17/19 20:03 05/17/19 22:00 Temperature 37.6 C Pulse Rate 82 76 67 Respiratory Rate 18 16 Blood Pressure 133/67 Pulse Oximetry 98 05/18/19 06:00 Temperature 37.3 C Pulse Rate 82 Respiratory Rate 18 Blood Pressure 144/64 H Pulse Oximetry 97 Intake/Output Intake/Output: Intake & Output 05/15/19 05/16/19 05/17/19 05/18/19 23:59 23:59 23:59 23:59 Intake Total 1114 1420 2820 460 Output Total 850 1650 1400 700 Balance 264 -230 1420 -240 Meds/Results Medications: Active Medications Generic Name Dose Route Start Last Admin Trade Name Freq PRN Reason Stop Dose Admin Albuterol 2.5 mg 05/14/19 16:37 05/14/19 16:56 Albuterol Sulf Neb 2.5mg/0.5ml INHALATION 2.5 mg Q6HRT PRN Administration Shortness Of Breath Allopurinol 100 mg 05/14/19 08:00 05/17/19 09:11 Zyloprim PO 100 mg DAILY@0800 LYLE Administration Carvedilol 25 mg 05/13/19 22:45 05/17/19 20:03 Coreg PO 25 mg Q12HR LYLE Administration Clonidine HCl 0.1 mg 05/13/19 22:45 05/17/19 17:28 Catapres PO 0.1 mg BID LYLE Administration Fluticasone Propionate 1 spray 05/15/19 21:00 05/17/19 20:03 Flonase 0.05% Nasal [place] NASAL 1 spray HS LYEL Administration Hydralazine HCl 10 mg 05/13/19 22:45 05/17/19 20:03 Apresoline Tablet PO 10 mg WMHS LYLE Administration Aztreonam 1 gm/ Dextrose 50 mls @ 100 mls/hr 05/14/19 21:00 05/17/19 20:07 IVPB Infused Q12HR LYLE Infusion Metronidazole 500 mg in 100 mls @ 100 mls/hr 05/14/19 21:00 05/18/19 06:02 Flagyl 500 Mg/Iso Soln 100 Ml IVPB Infused Q8H LYLE Infusion Ipratropium [place] 0.5 mg 05/14/19 16:36 05/14/19 16:56 Atrovent Neb INHALATION 0.5 mg Q6HRT PRN Administration Shortness Of Breath Lidocaine HCl 0.3 ml 05/14/19 08:09 Xylocaine 2% Local Inj INTRADERM ONCE PRN to numb area Montelukast Sodium 10 mg 05/14/19 09:00 05/17/19 09:11 Singulair PO 10 mg DAILY LYLE Administration Ondansetron HCl 4 mg 05/13/19 22:20 05/13/19 22:55 Zofran Inj IV PUSH 4 mg Q6H PRN Administration Nausea And Vomiting Pantoprazole Sodium 40 mg 05/14/19 21:00 05/17/19 20:03 Protonix Iv IV PUSH 40 mg Q12HR LYLE Administration Simvastatin 10 mg 05/14/19 09:00 05/17/19 09:11 Zocor PO 10 mg DAILY LYLE Administration Radiology Results: ITS Impressions Chest X-Ray 05/14/19 00:12 IMPRESSION: 1. Intersti
[2019-05-18] MEDS: hydrALAZINE 10 MG TABLET PO ×4 (09:00→21:55)
[2019-05-18] MEDS: allopurinoL 100 MG TABLET PO (09:00)
[2019-05-18] MEDS: PANTOPRAZOLE SODIUM IV 40 MG VIAL IV PUSH ×2 (09:01→21:56)
[2019-05-18] MEDS: SIMVASTATIN 10 MG TABLET PO (09:01)
[2019-05-18] MEDS: CLONIDINE HCL 0.1 MG TABLET PO ×2 (09:01→17:52)
[2019-05-18] MEDS: carvediloL 25 MG TABLET PO ×2 (09:01→21:56)
[2019-05-18] MEDS: MONTELUKAST SODIUM 10 MG TABLET PO (09:01)
[2019-05-18] MEDS: AZTREONAM 1 GM in DEXTROSE 5% IN WATER 50 ML IVPB ×2 (09:07→21:55)
[2019-05-18 09:11] LABS: Magnesium 1.3 mg/dL (1.6-2.3)
--- NOTE | 2019-05-18 10:56 | WPDGIPROGNO ---
Progress Note: A&P Additional Plan Patient alert and comfortable this morning. Tolerating diet without difficulty. Passing stool without difficulty. She denies any abdominal pain at the present time. Physical exam reveals her to be alert. Vital signs stable. Lungs are clear. Heart without murmur. Abdomen bowel sounds are present soft nontender with no hepatosplenomegaly. Labs reveal WBC 4.6, hemoglobin 8.7, hematocrit 27.0. Impression 1. Recurrent diverticulitis. Partial large bowel obstruction identified at colonoscopy. Pericolonic abscess suggest recent perforation. Surgery is following with this at this time. Plan is to continue IV antibiotics. Outpatient follow-up advised. It is likely she may eventually require sigmoid resection. 2. Gastric ulcer. Patient is asymptomatic at the present time. Plan is to continue Protonix. Plan agree with advancing diet. May change to oral antibiotics as diet as tolerated. Follow up in office after discharge ultimately. Subjective Date/time seen: 05/18/19 10:56 Objective Data Vital Signs Vital Signs: Vital Signs - 24 hr 05/17/19 12:00 05/17/19 14:00 05/17/19 16:00 Temperature 37.2 C 36.8 C Pulse Rate 71 72 81 Respiratory Rate 20 18 Blood Pressure 105/57 L 132/64 Pulse Oximetry 99 95 05/17/19 19:31 05/17/19 20:00 05/17/19 20:03 Temperature 36.7 C Pulse Rate 76 82 76 Respiratory Rate 18 18 Blood Pressure 121/60 Pulse Oximetry 99 05/17/19 22:00 05/18/19 06:00 Temperature 37.6 C 37.3 C Pulse Rate 67 82 Respiratory Rate 16 18 Blood Pressure 133/67 144/64 H Pulse Oximetry 98 97 Intake/Output Intake/Output: Intake & Output 05/15/19 05/16/19 05/17/19 05/18/19 23:59 23:59 23:59 23:59 Intake Total 1114 1420 2820 460 Output Total 850 1650 1400 700 Balance 264 -230 1420 -240 Meds/Results Medications: Active Medications Generic Name Dose Route Start Last Admin Trade Name Freq PRN Reason Stop Dose Admin Albuterol 2.5 mg 05/14/19 16:37 05/14/19 16:56 Albuterol Sulf Neb 2.5mg/0.5ml INHALATION 2.5 mg Q6HRT PRN Administration Shortness Of Breath Allopurinol 100 mg 05/14/19 08:00 05/18/19 09:00 Zyloprim PO 100 mg DAILY@0800 LYLE Administration Carvedilol 25 mg 05/13/19 22:45 05/18/19 09:01 Coreg PO 25 mg Q12HR LYLE Administration Clonidine HCl 0.1 mg 05/13/19 22:45 05/18/19 09:01 Catapres PO 0.1 mg BID LYLE Administration Fluticasone Propionate 1 spray 05/15/19 21:00 05/17/19 20:03 Flonase 0.05% Nasal [place] NASAL 1 spray HS LYLE Administration Hydralazine HCl 10 mg 05/13/19 22:45 05/18/19 09:00 Apresoline Tablet PO 10 mg WMHS LYLE Administration Aztreonam 1 gm/ Dextrose 50 mls @ 100 mls/hr 05/14/19 21:00 05/18/19 09:37 IVPB 0 mls/hr Q12HR LYLE Infusion Metronidazole 500 mg in 100 mls @ 100 mls/hr 05/14/19 21:00 05/18/19 06:02 Flagyl 500 Mg/Iso Soln 100 Ml IVPB Infused Q8H LYLE Infusion Ipratropium [place] 0.5 mg 05/14/19 16:36 05/14/19 16:56 Atrovent Neb INHALATION 0.5 mg Q6HRT PRN Administration Shortness Of Breath Lidocaine HCl 0.3 ml 05/14/19 08:09 Xylocaine 2% Local Inj INTRADERM ONCE PRN to numb area Montelukast Sodium 10 mg 05/14/19 09:00 05/18/19 09:01 Singulair PO 10 mg DAILY LYLE Administration Ondansetron HCl 4 mg 05/13/19 22:20 05/13/19 22:55 Zofran Inj IV PUSH 4 mg Q6H PRN Administration Nausea And Vomiting Pantoprazole Sodium 40 mg 05/14/19 21:00 05/18/19 09:01 Protonix Iv IV PUSH 40 mg Q12HR LYLE Administration Simvastatin 10 mg 05/14/19 09:00 05/18/19 09:01 Zocor PO 10 mg DAILY LYLE Administration Radiology Results: ITS Impressions Chest X-Ray 05/14/19 00:12 IMPRESSION: 1. Interstitial and airspace opacities at the lung bases, right greater than left which could represent mild pulmonary edema, atelectasis or pneumonia with possible small right
[2019-05-18 12:50] VITALS: BP 115/54; O2SAT 100
--- NOTE | 2019-05-18 13:09 | WPDINFPN2 ---
Progress Note: A&P Assessment and Plan (1) Diverticulitis of large intestine with perforation and abscess with bleeding: Code(s): K57.21 - Diverticulitis of large intestine with perforation and abscess with bleeding Status: Acute Assessment and Plan: 1. Diverticulitis with hemorrhage, improving 2. Multiple allergies REC Aztreonam and Metronidazole # 6 / 10 days, continue. Subjective Date/time seen: 05/18/19 13:09 Interval history: no further bleeding, no rash Exam Narrative: Exam Narrative: afebrile Const: General: no acute distress Eyes: General: appearance normal, both eyes and all related structures Skin: General skin exam: normal color and no rashes or lesions noted Objective Data Vital Signs Vital Signs: Vital Signs - 24 hr 05/17/19 14:00 05/17/19 16:00 05/17/19 19:31 Temperature 36.8 C 36.7 C Pulse Rate 72 81 76 Respiratory Rate 18 18 Blood Pressure 132/64 121/60 Pulse Oximetry 95 99 05/17/19 20:00 05/17/19 20:03 05/17/19 22:00 Temperature 37.6 C Pulse Rate 82 76 67 Respiratory Rate 18 16 Blood Pressure 133/67 Pulse Oximetry 98 05/18/19 06:00 Temperature 37.3 C Pulse Rate 82 Respiratory Rate 18 Blood Pressure 144/64 H Pulse Oximetry 97 Intake/Output Intake/Output: Intake & Output 05/15/19 05/16/19 05/17/19 05/18/19 23:59 23:59 23:59 23:59 Intake Total 1114 1420 2820 460 Output Total 850 1650 1400 700 Balance 264 -230 1420 -240 Meds/Results Medications: Active Medications Generic Name Dose Route Start Last Admin Trade Name Freq PRN Reason Stop Dose Admin Albuterol 2.5 mg 05/14/19 16:37 05/14/19 16:56 Albuterol Sulf Neb 2.5mg/0.5ml INHALATION 2.5 mg Q6HRT PRN Administration Shortness Of Breath Allopurinol 100 mg 05/14/19 08:00 05/18/19 09:00 Zyloprim PO 100 mg DAILY@0800 LYLE Administration Carvedilol 25 mg 05/13/19 22:45 05/18/19 09:01 Coreg PO 25 mg Q12HR LYLE Administration Clonidine HCl 0.1 mg 05/13/19 22:45 05/18/19 09:01 Catapres PO 0.1 mg BID LYLE Administration Fluticasone Propionate 1 spray 05/15/19 21:00 05/17/19 20:03 Flonase 0.05% Nasal [place] NASAL 1 spray HS LYLE Administration Hydralazine HCl 10 mg 05/13/19 22:45 05/18/19 12:52 Apresoline Tablet PO 10 mg WMHS LYLE Administration Aztreonam 1 gm/ Dextrose 50 mls @ 100 mls/hr 05/14/19 21:00 05/18/19 09:37 IVPB 0 mls/hr Q12HR LYLE Infusion Metronidazole 500 mg in 100 mls @ 100 mls/hr 05/14/19 21:00 05/18/19 12:50 Flagyl 500 Mg/Iso Soln 100 Ml IVPB 100 mls/hr Q8H LYLE Administration Magnesium Sulfate 2 gm in 50 mls @ 50 mls/hr 05/18/19 12:35 Magnesium Sulf 2 Gm/Water 50ml IVPB 05/18/19 13:34 ONCE ONE Ipratropium [place] 0.5 mg 05/14/19 16:36 05/14/19 16:56 Atrovent Neb INHALATION 0.5 mg Q6HRT PRN Administration Shortness Of Breath Lidocaine HCl 0.3 ml 05/14/19 08:09 Xylocaine 2% Local Inj INTRADERM ONCE PRN to numb area Montelukast Sodium 10 mg 05/14/19 09:00 05/18/19 09:01 Singulair PO 10 mg DAILY LYLE Administration Ondansetron HCl 4 mg 05/13/19 22:20 05/13/19 22:55 Zofran Inj IV PUSH 4 mg Q6H PRN Administration Nausea And Vomiting Pantoprazole Sodium 40 mg 05/14/19 21:00 05/18/19 09:01 Protonix Iv IV PUSH 40 mg Q12HR LYLE Administration Simvastatin 10 mg 05/14/19 09:00 05/18/19 09:01 Zocor PO 10 mg DAILY LYLE Administration Radiology Results: ITS Impressions Chest X-Ray 05/14/19 00:12 IMPRESSION: 1. Interstitial and airspace opacities at the lung bases, right greater than left which could represent mild pulmonary edema, atelectasis or pneumonia with possible small right pleural effusion. Abdomen/Pelvis CT 05/15/19 18:20 IMPRESSION: 1. Diverticulitis with a couple small abscesses in the pelvis which currently do not appear readily amenable to percutaneous drainage. 2. Indeterm
[2019-05-18] MEDS: MAGNESIUM SULF 2 GM/WATER 50ML 2 GM/50 ML BAG IVPB (14:13)
--- NOTE | 2019-05-18 15:04 | PCDIET ---
Nutrition Consult Complete Seeing pt today for low to high fiber diet edu. Pt very receptive. We discussed recommended foods initially with rationale and then encouragement to increase fiber sources upon MD approval. Pt states vit D levels were good last MD visit. PO intake is good. Details under nutritional teaching.
--- NOTE | 2019-05-18 16:02 | PM.IMPN ---
Progress Note: A&P Assessment and Plan (1) Acute GI bleeding: Code(s): K92.2 - Gastrointestinal hemorrhage, unspecified Status: Inactive Assessment and Plan: 05/18/19 16:02 Patient is 78-year-old female with a history of chronic anemia diverticulitis initially patient presented to outside [facility] with a complaint of black tarry stool and eventually turn into bright red blood patient patient was transfused and transferred to the inpatient hospital for further evaluation patient is seen by GI, and patient is scheduled for colonoscopy later today, her 2 daughters are present in the room, today patient denies any abdominal pain nausea vomiting or rectal bleeding, her last colonoscopy was in October of 2018 and did not show any significant pathology Patient had colonoscopy on 05/14 showed inflammed colon and GI was not able to pass scope and suspicious for infection patient started on a broad-spectrum antibiotic patient also EGD and show gastritis being treated with a Protonix, today patient is feeling better denies any abdominal pain nausea or vomiting she did have a small bowel movement there was no bleeding, patient denies any fever or chills her daughter is present in the room Ct of abdomen showed diverticulitis with abscess similar to seen with colonoscopy and patient was diagnosed with diverticulitis last October, patient has a recurrent diverticulitis will consult surgery for further recommendation, the scan showed possible renal mass, patient was seen by Hematology recommended continue with Epogen and monitoring CBC, was seen by general surgery recommended sigmoidectomy was the patient clinically stable for recurrent diverticulitis, seen by GI will continue present management, seen by Dr. Carballo recommended to continue IV antibiotics for #6/10 days, patient is feeling better denies any abdominal pain nausea or vomiting see did have a small-bowel no bleeding, patient daughter is present in the room. (2) Acute on chronic blood loss anemia: Code(s): D62 - Acute posthemorrhagic anemia Status: Acute Assessment and Plan: She will be transfused to a stable hemoglobin. Will monitor hemoglobin and hematocrit closely. Should she have recurrent bleeding, would consider platelet transfusion. (3) Hypertension: Code(s): I10 - Essential (primary) hypertension Status: Acute Assessment and Plan: Blood pressures were reviewed and they are running in the 150s to 160 systolic. For now will continue with her antihypertensives and monitor closely. (4) Chronic kidney disease, stage 4 (severe): Code(s): N18.4 - Chronic kidney disease, stage 4 (severe) Status: Chronic Assessment and Plan: Creatinine is stable on review of previous labs and will be monitored. (5) Pancytopenia: Code(s): D61.818 - Other pancytopenia Status: Chronic Assessment and Plan: Patient with pancytopenia chronic clinically stable will consult grant writer for further recommendation Subjective Date/time seen: 05/18/19 16:02 Patient is 78-year-old female with a history of chronic anemia diverticulitis initially patient presented to outside [facility] with a complaint of black tarry stool and eventually turn into bright red blood patient patient was transfused and transferred to the inpatient hospital for further evaluation patient is seen by GI, and patient is scheduled for colonoscopy later today, her 2 daughters are present in the room, today patient denies any abdominal pain nausea vomiting or rectal bleeding, her last colonoscopy was in October of 2018 and did not show any significant pathology Patient had colonoscopy on 05/14 showed inflammed colon and GI was not able to pass scope and suspicious for infection patient started on a broad-spectrum antibiotic patient also EGD and show gastritis being treated with a Protonix, today patient is feeling better denies any abdominal pain na
[2019-05-18 17:50] VITALS: BP 118/62; PULSE 78; RESP 18; O2SAT 100
[2019-05-18] MEDS: FLUTICASONE PROPIONATE 0.05% NA SPR 16 GM BTL (*BKC) 1 SPRAY NASAL (21:55)
[2019-05-18 21:56] VITALS: PULSE 78
[2019-05-18 22:00] VITALS: BP 144/69; PULSE 74; RESP 16; TEMP 36.7; O2SAT 98
[2019-05-19] MEDS: metroNIDAZOLE 500 MG/ISO 100ML 500 MG/100 ML BAG 100 MG IVPB (04:35)
[2019-05-19 05:56] VITALS: BP 135/74; PULSE 81; RESP 18; TEMP 37.1; O2SAT 98
[2019-05-19 06:35] LABS: Hematocrit 27.2 % (37.0-47.0); Hemoglobin 8.8 g/dL (12.0-15.0); Immature Platelet Fraction Pct 6.8 % (0.9-11.2); Mean Corpuscular HGB Conc 32.4 g/dl (32-36); Mean Corpuscular Hemoglobin 30.8 pg (26-34); Mean Corpuscular Volume 95.1 fl (80-100); Mean Platelet Volume 12.2 fl (7.4-10.4); Platelet Count Result 55 k/mm3 (150-375); Red Blood Count 2.86 M/mm3 (4.2-5.4); Red Cell Distribution Width 16.7 % (11.5-14.5); White Blood Count 4.7 K/mm3 (4.5-10.0)
[2019-05-19 06:51] LABS: Albumin Level 2.1 g/dL (3.5-5.1); Blood Urea Nitrogen 47 mg/dL (7-17); Calcium 8.5 mg/dL (8.4-10.2); Carbon Dioxide 20 mmol/L (22-30); Chloride 98 mmol/L (98-107); Estimated CRCL calculation 15 ml/min; Estimated Glomerular Filt Rate 17; Glucose 87 mg/dL (65-105); Phosphorus 2.9 mg/dL (2.5-4.5); Potassium 3.8 mmol/L (3.4-5.0); Sodium 127 mmol/L (137-145)
[2019-05-19 06:53] LABS: Magnesium 1.8 mg/dL (1.6-2.3)
--- NOTE | 2019-05-19 09:11 | WPDGIPROGNO ---
Progress Note: A&P Additional Plan Patient comfortable. Sitting in a chair for breakfast. Denies any significant abdominal pain. Passing bowel movements without difficulty. no bleeding reported. Physical exam patient is alert. Vital signs stable. HEENT exam unremarkable. Lungs are clear. Heart is without murmur. Abdomen is soft and nontender. CBC white count 4.7, hemoglobin 8.8. Impression 1. Gastric ulcer. Clinically improving on proton pump inhibitor. Plan is for outpatient EGD in 2 months to assess response to therapy. 2. Diverticulitis. Patient has pericolonic abscess. Surgery is following patient. She is improving clinically with antibiotics. Currently tolerating low residue diet. Plan is for elective EGD in 2 months to assess response to therapy. Continue proton pump inhibitors. Diet as tolerated. Suggest increasing activity. May discharge when okay with primary care service. Antibiotics are to be given per the Infectious Disease pci security consultant. Surgical follow-up for perforated sigmoid diverticulitis advised. Subjective Date/time seen: 05/19/19 09:11 Objective Data Vital Signs Vital Signs: Vital Signs - 24 hr 05/18/19 12:50 05/18/19 17:50 05/18/19 21:56 Temperature Pulse Rate 78 78 Respiratory Rate 18 Blood Pressure 115/54 L 118/62 Pulse Oximetry 100 100 05/18/19 22:00 05/19/19 05:56 Temperature 36.7 C 37.1 C Pulse Rate 74 81 Respiratory Rate 16 18 Blood Pressure 144/69 H 135/74 Pulse Oximetry 98 98 Intake/Output Intake/Output: Intake & Output 05/16/19 05/17/19 05/18/19 05/19/19 23:59 23:59 23:59 23:59 Intake Total 1420 2820 1700 250 Output Total 1650 1400 700 200 Balance -230 1420 1000 50 Meds/Results Medications: Active Medications Generic Name Dose Route Start Last Admin Trade Name Freq PRN Reason Stop Dose Admin Albuterol 2.5 mg 05/14/19 16:37 05/14/19 16:56 Albuterol Sulf Neb 2.5mg/0.5ml INHALATION 2.5 mg Q6HRT PRN Administration Shortness Of Breath Allopurinol 100 mg 05/14/19 08:00 05/18/19 09:00 Zyloprim PO 100 mg DAILY@0800 LYLE Administration Carvedilol 25 mg 05/13/19 22:45 05/18/19 21:56 Coreg PO 25 mg Q12HR LYLE Administration Clonidine HCl 0.1 mg 05/13/19 22:45 05/18/19 17:52 Catapres PO 0.1 mg BID LYLE Administration Fluticasone Propionate 1 spray 05/15/19 21:00 05/18/19 21:55 Flonase 0.05% Nasal [place] NASAL 1 spray HS LYLE Administration Hydralazine HCl 10 mg 05/13/19 22:45 05/18/19 21:55 Apresoline Tablet PO 10 mg WMHS LYLE Administration Aztreonam 1 gm/ Dextrose 50 mls @ 100 mls/hr 05/14/19 21:00 05/18/19 22:25 IVPB Infused Q12HR LYLE Infusion Metronidazole 500 mg in 100 mls @ 100 mls/hr 05/14/19 21:00 05/19/19 04:35 Flagyl 500 Mg/Iso Soln 100 Ml IVPB 100 mls/hr Q8H LYLE Administration Ipratropium [place] 0.5 mg 05/14/19 16:36 05/14/19 16:56 Atrovent Neb INHALATION 0.5 mg Q6HRT PRN Administration Shortness Of Breath Lidocaine HCl 0.3 ml 05/14/19 08:09 Xylocaine 2% Local Inj INTRADERM ONCE PRN to numb area Montelukast Sodium 10 mg 05/14/19 09:00 05/18/19 09:01 Singulair PO 10 mg DAILY LYLE Administration Ondansetron HCl 4 mg 05/13/19 22:20 05/13/19 22:55 Zofran Inj IV PUSH 4 mg Q6H PRN Administration Nausea And Vomiting Pantoprazole Sodium 40 mg 05/14/19 21:00 05/18/19 21:56 Protonix Iv IV PUSH 40 mg Q12HR LYLE Administration Simvastatin 10 mg 05/14/19 09:00 05/18/19 09:01 Zocor PO 10 mg DAILY LYLE Administration Radiology Results: ITS Impressions Chest X-Ray 05/14/19 00:12 IMPRESSION: 1. Interstitial and airspace opacities at the lung bases, right greater than left which could represent mild pulmonary edema, atelectasis or pneumonia with possible small right pleural effusion. Abdomen/Pelvis CT 05/15/19 18:20 IMPRESSION: 1. Diverticulitis with a couple small a
[2019-05-19 09:13] VITALS: PULSE 66
[2019-05-19] MEDS: MONTELUKAST SODIUM 10 MG TABLET PO (09:13)
[2019-05-19] MEDS: hydrALAZINE 10 MG TABLET PO ×4 (09:13→21:00)
[2019-05-19] MEDS: SIMVASTATIN 10 MG TABLET PO (09:13)
[2019-05-19] MEDS: carvediloL 25 MG TABLET PO ×2 (09:13→21:00)
[2019-05-19] MEDS: allopurinoL 100 MG TABLET PO (09:13)
[2019-05-19] MEDS: AZTREONAM 1 GM in DEXTROSE 5% IN WATER 50 ML IVPB ×2 (09:14→21:00)
[2019-05-19] MEDS: PANTOPRAZOLE SODIUM IV 40 MG VIAL IV PUSH ×2 (09:14→21:00)
[2019-05-19] MEDS: CLONIDINE HCL 0.1 MG TABLET PO ×2 (09:14→16:23)
--- NOTE | 2019-05-19 11:58 | WPDINFPN2 ---
Progress Note: A&P Assessment and Plan (1) Diverticulitis of large intestine with perforation and abscess with bleeding: Code(s): K57.21 - Diverticulitis of large intestine with perforation and abscess with bleeding Status: Acute Assessment and Plan: 1. Diverticulitis with hemorrhage, improving 2. Multiple allergies REC Aztreonam and Metronidazole # 7 / 10 days, continue, can change metronidazole to oral Subjective Date/time seen: 05/19/19 11:58 Interval history: no further bleeding, no anorexia, no abd pain Exam Narrative: Exam Narrative: afebrile GI: Inspection: non-distended GI Palp: Yes Soft to palpation, No Tenderness to palpation present (GI) and No Guarding due to palpation present (GI) Percussion: Yes normal to percussion Objective Data Vital Signs Vital Signs: Vital Signs - 24 hr 05/18/19 12:50 05/18/19 17:50 05/18/19 21:56 Temperature Pulse Rate 78 78 Respiratory Rate 18 Blood Pressure 115/54 L 118/62 Pulse Oximetry 100 100 05/18/19 22:00 05/19/19 05:56 05/19/19 09:13 Temperature 36.7 C 37.1 C Pulse Rate 74 81 66 Respiratory Rate 16 18 Blood Pressure 144/69 H 135/74 Pulse Oximetry 98 98 Intake/Output Intake/Output: Intake & Output 05/16/19 05/17/19 05/18/19 05/19/19 23:59 23:59 23:59 23:59 Intake Total 1420 2820 1700 760 Output Total 1650 1400 700 200 Balance -230 1420 1000 560 Meds/Results Medications: Active Medications Generic Name Dose Route Start Last Admin Trade Name Freq PRN Reason Stop Dose Admin Albuterol 2.5 mg 05/14/19 16:37 05/14/19 16:56 Albuterol Sulf Neb 2.5mg/0.5ml INHALATION 2.5 mg Q6HRT PRN Administration Shortness Of Breath Allopurinol 100 mg 05/14/19 08:00 05/19/19 09:13 Zyloprim PO 100 mg DAILY@0800 LYLE Administration Carvedilol 25 mg 05/13/19 22:45 05/19/19 09:13 Coreg PO 25 mg Q12HR LYLE Administration Clonidine HCl 0.1 mg 05/13/19 22:45 05/19/19 09:14 Catapres PO 0.1 mg BID LYLE Administration Fluticasone Propionate 1 spray 05/15/19 21:00 05/18/19 21:55 Flonase 0.05% Nasal [place] NASAL 1 spray HS LYLE Administration Hydralazine HCl 10 mg 05/13/19 22:45 05/19/19 09:13 Apresoline Tablet PO 10 mg WMHS LYLE Administration Aztreonam 1 gm/ Dextrose 50 mls @ 100 mls/hr 05/14/19 21:00 05/19/19 09:41 IVPB Infused Q12HR LYLE Infusion Metronidazole 500 mg in 100 mls @ 100 mls/hr 05/14/19 21:00 05/19/19 07:30 Flagyl 500 Mg/Iso Soln 100 Ml IVPB Infused Q8H LYLE Infusion Ipratropium [place] 0.5 mg 05/14/19 16:36 05/14/19 16:56 Atrovent Neb INHALATION 0.5 mg Q6HRT PRN Administration Shortness Of Breath Lidocaine HCl 0.3 ml 05/14/19 08:09 Xylocaine 2% Local Inj INTRADERM ONCE PRN to numb area Montelukast Sodium 10 mg 05/14/19 09:00 05/19/19 09:13 Singulair PO 10 mg DAILY LYLE Administration Ondansetron HCl 4 mg 05/13/19 22:20 05/13/19 22:55 Zofran Inj IV PUSH 4 mg Q6H PRN Administration Nausea And Vomiting Pantoprazole Sodium 40 mg 05/14/19 21:00 05/19/19 09:14 Protonix Iv IV PUSH 40 mg Q12HR LYLE Administration Simvastatin 10 mg 05/14/19 09:00 05/19/19 09:13 Zocor PO 10 mg DAILY LYLE Administration Radiology Results: ITS Impressions Chest X-Ray 05/14/19 00:12 IMPRESSION: 1. Interstitial and airspace opacities at the lung bases, right greater than left which could represent mild pulmonary edema, atelectasis or pneumonia with possible small right pleural effusion. Abdomen/Pelvis CT 05/15/19 18:20 IMPRESSION: 1. Diverticulitis with a couple small abscesses in the pelvis which currently do not appear readily amenable to percutaneous drainage. 2. Indeterminate 1.9 cm lesion at the upper pole of the left kidney concerning for renal cell carcinoma. Consider further evaluation with pre and postcontrast MRI or CT. 3. Cystic lesion at the neck of the pancreas
--- NOTE | 2019-05-19 13:07 | PM.IMPN ---
Progress Note: A&P Assessment and Plan (1) Acute GI bleeding: Code(s): K92.2 - Gastrointestinal hemorrhage, unspecified Status: Inactive Assessment and Plan: See above, pt is recommended by Dr. Carballo to continue IV antibiotics for 10 days, for diverticulitis, today, being the 7th day. Sp Colonscopy and EGD under DR Blas. (2) Acute on chronic blood loss anemia: Code(s): D62 - Acute posthemorrhagic anemia Status: Acute Assessment and Plan: Sp blood transfusion Will monitor hemoglobin and hematocrit closely. (3) Hypertension: Code(s): I10 - Essential (primary) hypertension Status: Acute Assessment and Plan: Blood pressures were reviewed and they are running in the 150s to 160 systolic. Continue to monitor Bps (4) Chronic kidney disease, stage 4 (severe): Code(s): N18.4 - Chronic kidney disease, stage 4 (severe) Status: Chronic Assessment and Plan: Creatinine is stable at 2.7 (5) Pancytopenia: Code(s): D61.818 - Other pancytopenia Status: Chronic Assessment and Plan: Patient with pancytopenia chronic clinically stable will consult spine nurse for further recommendation, hb is 8 (6) Hyponatremia: Code(s): E87.1 - Hypo-osmolality and hyponatremia Status: Acute Assessment and Plan: Continue to monitor with daily labs Subjective Date/time seen: 05/19/19 13:07 Interval history: Patient is 78-year-old female with a history of chronic anemia diverticulitis initially patient presented to outside [facility] with a complaint of black tarry stool and eventually turn into bright red blood patient patient was transfused and transferred to the inpatient hospital for higher level of care, patient is seen by GI,her last colonoscopy was in October of 2018 and did not show any significant pathology. Ct of abdomen showed diverticulitis with abscess similar to seen with colonoscopy and patient was diagnosed with diverticulitis last October, patient has a recurrent diverticulitis will consult surgery for further recommendation, the scan showed possible renal mass, patient was seen by Hematology recommended continue with Epogen and monitoring CBC, was seen by general surgery recommended sigmoidectomy once the patient clinically stable for recurrent diverticulitis, seen by GI will continue present management. Sp blood transfusion , EGD and colonscopy, being seen by DR Blas Gi and DR Carballo ID As per previous notes, pt is recommended by Dr. Carballo to continue IV antibiotics for 10 days, for diverticulitis, today, being the 7th day. Review of Systems Review of Systems: All systems reviewed & are unremarkable except as noted in HPI and below Gastrointestinal: Gastrointestinal: Reports abdominal pain and Reports diarrhea Neurologic: Denies confusion Exam Narrative: Exam Narrative: Elderly frail Const: General: comfortable and no acute distress Resp: Effort & Inspection: normal respiratory effort Auscultation: clear to auscultation bilaterally Cardio: Rate: regular rate Rhythm: regular rhythm GI: Auscultation: normal bowel sounds Other: Diffusely tender Skin: General skin exam: normal color and no rashes or lesions noted Neuro: Speech: normal speech Sensory Exam: normal sensation Extrem: General: normal to inspection Psych: Mental Status: mental status grossly normal Affect: normal affect and Anxious affect present Objective Data Vital Signs Vital Signs: Vital Signs - 24 hr 05/18/19 17:50 05/18/19 21:56 05/18/19 22:00 Temperature 36.7 C Pulse Rate 78 78 74 Respiratory Rate 18 16 Blood Pressure 118/62 144/69 H Pulse Oximetry 100 98 05/19/19 05:56 05/19/19 09:13 Temperature 37.1 C Pulse Rate 81 66 Respiratory Rate 18 Blood Pressure 135/74 Pulse Oximetry 98 Intake/Output Intake/Output: Intake & Output 05/16/19 05/17/19 05/18/19 05/19/19 2
--- NOTE | 2019-05-19 13:25 | WPDONCPN ---
Progress Note: A&P Assessment and Plan (1) Pancytopenia: Code(s): D61.818 - Other pancytopenia Status: Chronic Assessment and Plan: Thrombocytopenia has been improving. Last platelet count around her baseline, 55K. no intervention. She will follow up with Dr. Telles in [facility]. She can also follow-up with her primary oncologist Dr. 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 Since her counts have been stable, will sign off now. Please schedule an appointment with her primary oncologist as well as hospital television rental clerk in [facility] on discharge. No active follow-up given. Will sign off for now. (2) Chronic anemia: Code(s): D64.9 - Anemia, unspecified Status: Acute Assessment and Plan: Currently stable. (3) Breast cancer: Code(s): C50.919 - Malignant neoplasm of unspecified site of unspecified female breast Status: Acute Assessment and Plan: She did not have any recurrence. She will follow-up with her oncologist at [facility]. (4) Cystic kidney disease, unspecified: Code(s): Q61.9 - Cystic kidney disease, unspecified Status: Acute Assessment and Plan: Incidental left kidney pole cystic lesion picked on the CT abdominal and pelvis without contrast. Appears to be a cyst but needs MRI confirmation. If MRI with contrast cannot be done due to her underlying CKD, she will need to follow up with primary oncologist at [facility] for further workup. Her pancreatic cystic lesion can also be worked up at that time. Review of Systems Review of Systems Narrative: Twelve point review of systems with pertinent positives as per HPI. Rest of the systems negative. All systems reviewed & are unremarkable except as noted in HPI and below Exam Const: General: cooperative Other: Elderly Resp: Effort & Inspection: normal respiratory effort Auscultation: clear to auscultation bilaterally Cardio: Palpation: normal PMI Rhythm: regular rhythm Heart sounds: S1 normal heart sound present and S2 normal heart sound present GI: GI Palp: Yes abdominal tenderness Auscultation: normal bowel sounds Neuro: General: oriented to person, oriented to place and oriented to time Objective Data Vital Signs Vital Signs: Vital Signs - 24 hr 05/18/19 17:50 05/18/19 21:56 05/18/19 22:00 Temperature 36.7 C Pulse Rate 78 78 74 Respiratory Rate 18 16 Blood Pressure 118/62 144/69 H Pulse Oximetry 100 98 05/19/19 05:56 05/19/19 09:13 Temperature 37.1 C Pulse Rate 81 66 Respiratory Rate 18 Blood Pressure 135/74 Pulse Oximetry 98 Intake/Output Intake/Output: Intake & Output 05/16/19 05/17/19 05/18/19 05/19/19 23:59 23:59 23:59 23:59 Intake Total 1420 2820 1700 760 Output Total 1650 1400 700 200 Balance -230 1420 1000 560 Meds/Results Medications: Active Medications Generic Name Dose Route Start Last Admin Trade Name Freq PRN Reason Stop Dose Admin Albuterol 2.5 mg 05/14/19 16:37 05/14/19 16:56 Albuterol Sulf Neb 2.5mg/0.5ml INHALATION 2.5 mg Q6HRT PRN Administration Shortness Of Breath Allopurinol 100 mg 05/14/19 08:00 05/19/19 09:13 Zyloprim PO 100 mg DAILY@0800 LYLE Administration Carvedilol 25 mg 05/13/19 22:45 05/19/19 09:13 Coreg PO 25 mg Q12HR LYLE Administration Clonidine HCl 0.1 mg 05/13/19 22:45 05/19/19 09:14 Catapres PO 0.1 mg BID LYLE Administration Fluticasone Propionate 1 spray 05/15/19 21:00 05/18/19 21:55 Flonase 0.05% Nasal [place] NASAL 1 spray HS LYLE Administration Hydralazine HCl 10 mg 05/13/19 22:45 05/19/19 12:19 Apresoline Tablet PO 10 mg WMHS LYLE Administration Aztreonam 1 gm/ Dextrose 50 mls @ 100 mls/hr 05/14/19 21:00 05/19/19 09:41 IVPB Infused Q12HR LYLE Infusion Ipratropium [place] 0.5 mg 05/14/19 16:36 05/14/19 16:56 Atrovent Neb INHALATION
[2019-05-19 14:00] VITALS: BP 125/70; PULSE 75; RESP 16; TEMP 37; O2SAT 98
[2019-05-19] MEDS: metroNIDAZOLE 250 MG TABLET 500 MG PO ×2 (14:17→20:59)
[2019-05-19 21:00] VITALS: PULSE 78
[2019-05-19] MEDS: FLUTICASONE PROPIONATE 0.05% NA SPR 16 GM BTL (*BKC) 1 SPRAY NASAL (21:00)
[2019-05-19 22:00] VITALS: BP 132/59; PULSE 75; RESP 16; TEMP 37; O2SAT 98
[2019-05-20 05:07] LABS: Albumin 1.9 g/dL (3.8-4.8); Alpha 1 Globulin 0.4 g/dL (0.2-0.3); Alpha 2 Globulin 0.6 g/dL (0.5-0.9); Beta 1 Globulin 0.2 g/dL (0.4-0.6); Protein, Total 4.5 g/dL (6.1-8.1)
[2019-05-20] MEDS: metroNIDAZOLE 250 MG TABLET 500 MG PO ×3 (05:52→20:36)
[2019-05-20 06:00] VITALS: BP 141/67; PULSE 76; RESP 16; TEMP 36.9; O2SAT 99
[2019-05-20 06:47] LABS: Hematocrit 28.8 % (37.0-47.0); Hemoglobin 9.1 g/dL (12.0-15.0); Immature Platelet Fraction Pct 5.8 % (0.9-11.2); Mean Corpuscular HGB Conc 31.6 g/dl (32-36); Mean Platelet Volume 11.6 fl (7.4-10.4); Platelet Count Result 81 k/mm3 (150-375); Red Blood Count 2.94 M/mm3 (4.2-5.4); Red Cell Distribution Width 17.1 % (11.5-14.5); White Blood Count 5.1 K/mm3 (4.5-10.0)
[2019-05-20 07:01] LABS: Albumin Level 2.3 g/dL (3.5-5.1); Blood Urea Nitrogen 51 mg/dL (7-17); Calcium 8.6 mg/dL (8.4-10.2); Carbon Dioxide 21 mmol/L (22-30); Chloride 97 mmol/L (98-107); Estimated CRCL calculation 14 ml/min; Estimated Glomerular Filt Rate 16; Glucose 84 mg/dL (65-105); Phosphorus 3.1 mg/dL (2.5-4.5); Potassium 4.1 mmol/L (3.4-5.0); Sodium 127 mmol/L (137-145)
--- NOTE | 2019-05-20 08:43 | WPDGIPROGNO ---
Progress Note: A&P Additional Plan Patient improving well. She is tolerating diet. Denies any bleeding. She denies abdominal pain. Physical exam reveals Vital Signs to be stable. HEENT exam unremarkable. She is anicteric. Lungs are clear. Heart is without murmur. Abdomen bowel sounds are present soft nontender. Impression 1. Sigmoid diverticulitis. Marked edema swelling at time of colonoscopy. This limited exam. Patient has pericolonic abscess by CT scan. Surgery is following. Anticipate follow-up CT scan before seen surgery in the office. Continue broad-spectrum antibiotics at this time. 2. Gastric ulcer. Identified by recent EGD. Plan is to continue proton pump inhibitor. Follow-up EGD in 2 months. 3. Thrombocytopenia. Followed at [facility] by . Continued observation at this point. Subjective Date/time seen: 05/20/19 08:43 Objective Data Vital Signs Vital Signs: Vital Signs - 24 hr 05/19/19 09:13 05/19/19 14:00 05/19/19 21:00 Temperature 37.0 C Pulse Rate 66 75 78 Respiratory Rate 16 Blood Pressure 125/70 Pulse Oximetry 98 05/19/19 22:00 05/20/19 06:00 Temperature 37.0 C 36.9 C Pulse Rate 75 76 Respiratory Rate 16 16 Blood Pressure 132/59 L 141/67 H Pulse Oximetry 98 99 Intake/Output Intake/Output: Intake & Output 05/17/19 05/18/19 05/19/19 05/20/19 23:59 23:59 23:59 23:59 Intake Total 2820 1700 2210 460 Output Total 1400 700 500 500 Balance 1420 1000 1710 -40 Meds/Results Medications: Active Medications Generic Name Dose Route Start Last Admin Trade Name Freq PRN Reason Stop Dose Admin Albuterol 2.5 mg 05/14/19 16:37 05/14/19 16:56 Albuterol Sulf Neb 2.5mg/0.5ml INHALATION 2.5 mg Q6HRT PRN Administration Shortness Of Breath Allopurinol 100 mg 05/14/19 08:00 05/19/19 09:13 Zyloprim PO 100 mg DAILY@0800 LYLE Administration Carvedilol 25 mg 05/13/19 22:45 05/19/19 21:00 Coreg PO 25 mg Q12HR LYLE Administration Clonidine HCl 0.1 mg 05/13/19 22:45 05/19/19 16:23 Catapres PO 0.1 mg BID LYLE Administration Fluticasone Propionate 1 spray 05/15/19 21:00 05/19/19 21:00 Flonase 0.05% Nasal [place] NASAL 1 spray HS LYLE Administration Hydralazine HCl 10 mg 05/13/19 22:45 05/19/19 21:00 Apresoline Tablet PO 10 mg WMHS LYLE Administration Aztreonam 1 gm/ Dextrose 50 mls @ 100 mls/hr 05/14/19 21:00 05/19/19 21:30 IVPB Infused Q12HR LYLE Infusion Ipratropium [place] 0.5 mg 05/14/19 16:36 05/14/19 16:56 Atrovent Neb INHALATION 0.5 mg Q6HRT PRN Administration Shortness Of Breath Lidocaine HCl 0.3 ml 05/14/19 08:09 Xylocaine 2% Local Inj INTRADERM ONCE PRN to numb area Metronidazole 500 mg 05/19/19 14:00 05/20/19 05:52 Flagyl PO 05/22/19 23:59 500 mg Q8HR LYLE Administration Montelukast Sodium 10 mg 05/14/19 09:00 05/19/19 09:13 Singulair PO 10 mg DAILY LYLE Administration Ondansetron HCl 4 mg 05/13/19 22:20 05/13/19 22:55 Zofran Inj IV PUSH 4 mg Q6H PRN Administration Nausea And Vomiting Pantoprazole Sodium 40 mg 05/14/19 21:00 05/19/19 21:00 Protonix Iv IV PUSH 40 mg Q12HR LYLE Administration Simvastatin 10 mg 05/14/19 09:00 05/19/19 09:13 Zocor PO 10 mg DAILY LYLE Administration Radiology Results: ITS Impressions Chest X-Ray 05/14/19 00:12 IMPRESSION: 1. Interstitial and airspace opacities at the lung bases, right greater than left which could represent mild pulmonary edema, atelectasis or pneumonia with possible small right pleural effusion. Abdomen/Pelvis CT 05/15/19 18:20 IMPRESSION: 1. Diverticulitis with a couple small abscesses in the pelvis which currently do not appear readily amenable to percutaneous drainage. 2. Indeterminate 1.9 cm lesion at the upper pole of the left kidney concerning for renal cell carcinoma. Consider further evaluation with pre and postcontrast MRI or CT. 3. C
[2019-05-20] MEDS: hydrALAZINE 10 MG TABLET PO ×4 (09:06→20:36)
[2019-05-20] MEDS: PANTOPRAZOLE SODIUM IV 40 MG VIAL IV PUSH ×2 (09:06→20:37)
[2019-05-20] MEDS: SIMVASTATIN 10 MG TABLET PO (09:06)
[2019-05-20] MEDS: allopurinoL 100 MG TABLET PO (09:06)
[2019-05-20] MEDS: MONTELUKAST SODIUM 10 MG TABLET PO (09:07)
[2019-05-20] MEDS: carvediloL 25 MG TABLET PO ×2 (09:07→20:37)
[2019-05-20] MEDS: CLONIDINE HCL 0.1 MG TABLET PO ×2 (09:07→17:48)
[2019-05-20] MEDS: AZTREONAM 1 GM in DEXTROSE 5% IN WATER 50 ML IVPB ×2 (09:09→20:39)
--- NOTE | 2019-05-20 13:33 | PM.IMPN ---
Progress Note: A&P Assessment and Plan (1) Acute GI bleeding: Code(s): K92.2 - Gastrointestinal hemorrhage, unspecified Status: Inactive Assessment and Plan: See above, pt is recommended by Dr. Carballo to continue IV antibiotics for 10 days, for diverticulitis, today, being the 8th day. Sp Colonscopy and EGD under DR Blas. Ct of abdomen showed diverticulitis with abscess similar to seen with colonoscopy and patient was diagnosed with diverticulitis last October, Colonscopy here showed Sigmoid diverticulitis. Marked edema. EGD showed GASTRIC ULCER. (2) Acute on chronic blood loss anemia: Code(s): D62 - Acute posthemorrhagic anemia Status: Acute Assessment and Plan: Sp blood transfusion Will monitor hemoglobin and hematocrit closely. Pt is seeing DR Telles [facility] fo thrombocytopenia (3) Hypertension: Code(s): I10 - Essential (primary) hypertension Status: Acute Assessment and Plan: Blood pressures were reviewed and they are running in the 150s to 160 systolic. Continue to monitor Bps (4) Chronic kidney disease, stage 4 (severe): Code(s): N18.4 - Chronic kidney disease, stage 4 (severe) Status: Chronic Assessment and Plan: Creatinine is stable at 2.8 (5) Pancytopenia: Code(s): D61.818 - Other pancytopenia Status: Chronic Assessment and Plan: Patient with pancytopenia chronic clinically stable will consult bread wrapper operator for further recommendation, hb is 8 (6) Hyponatremia: Code(s): E87.1 - Hypo-osmolality and hyponatremia Status: Acute Assessment and Plan: Continue to monitor with daily labs Subjective Date/time seen: 05/20/19 13:33 Interval history: Patient is 78-year-old female with a history of chronic anemia diverticulitis initially patient presented to outside [facility] with a complaint of black tarry stool and eventually turn into bright red blood patient patient was transfused and transferred to the inpatient hospital for higher level of care, patient is seen by GI,her last colonoscopy was in October of 2018 and did not show any significant pathology. Ct of abdomen showed diverticulitis with abscess similar to seen with colonoscopy and patient was diagnosed with diverticulitis last October, Colonscopy here showed Sigmoid diverticulitis. Marked edema. EGD showed GASTRIC ULCER. Sp blood transfusion , EGD and colonscopy, being seen by DR Blas Gi and DR Carballo ID As per previous notes, pt is recommended by Dr. Carballo to continue IV antibiotics for 10 days, for diverticulitis, today, being the 7th day. Review of Systems Review of Systems: All systems reviewed & are unremarkable except as noted in HPI and below Gastrointestinal: Gastrointestinal: Denies abdominal pain and Denies diarrhea Neurologic: Denies confusion Psychiatric: Psychiatric: Denies confusion Exam Narrative: Exam Narrative: Elderly frail Const: General: comfortable and no acute distress; No confusion Orientation/consciousness: No confusion HENMT: General nose exam: Normal nares present Mouth: Yes moist mucous membranes Eyes: General: appearance normal, both eyes and all related structures Sclera: sclerae normal Neck: Neck: supple Resp: Effort & Inspection: normal respiratory effort Auscultation: clear to auscultation bilaterally Cardio: Rate: regular rate Rhythm: regular rhythm GI: Auscultation: normal bowel sounds Other: Diffusely tender Skin: General skin exam: normal color and no rashes or lesions noted Neuro: General: No confusion Speech: normal speech Sensory Exam: normal sensation Extrem: General: normal to inspection Psych: Mental Status: mental status grossly normal Affect: normal affect and Anxious affect present Objective Data Vital Signs Vital Signs: Vital Signs - 24 hr 05/19/19 14:00 05/19/19 21:00 05/19/19 22:00 Temperature 37.0 C 37.0 C Pulse Rate 75 7
--- NOTE | 2019-05-20 15:11 | WPDINFPN2 ---
Progress Note: A&P Assessment and Plan (1) Diverticulitis of large intestine with perforation and abscess with bleeding: Code(s): K57.21 - Diverticulitis of large intestine with perforation and abscess with bleeding Status: Acute Assessment and Plan: 1. Diverticulitis with hemorrhage, improving 2. Multiple allergies REC Aztreonam and Metronidazole # 8 / 10 days, continue until AM Tuesday 05/23, then ok discharge on no oral therapy. Will see prnl Subjective Date/time seen: 05/20/19 15:11 Interval history: no rash, no nausea, no abd pain Exam Narrative: Exam Narrative: afebrile Const: General: no acute distress GI: Inspection: non-distended GI Palp: Yes Soft to palpation, No Tenderness to palpation present (GI) and No Guarding due to palpation present (GI) Percussion: Yes normal to percussion Objective Data Vital Signs Vital Signs: Vital Signs - 24 hr 05/19/19 21:00 05/19/19 22:00 05/20/19 06:00 Temperature 37.0 C 36.9 C Pulse Rate 78 75 76 Respiratory Rate 16 16 Blood Pressure 132/59 L 141/67 H Pulse Oximetry 98 99 Intake/Output Intake/Output: Intake & Output 05/17/19 05/18/19 05/19/19 05/20/19 23:59 23:59 23:59 23:59 Intake Total 2820 1700 2210 870 Output Total 1400 700 500 500 Balance 1420 1000 1710 370 Meds/Results Medications: Active Medications Generic Name Dose Route Start Last Admin Trade Name Freq PRN Reason Stop Dose Admin Albuterol 2.5 mg 05/14/19 16:37 05/14/19 16:56 Albuterol Sulf Neb 2.5mg/0.5ml INHALATION 2.5 mg Q6HRT PRN Administration Shortness Of Breath Allopurinol 100 mg 05/14/19 08:00 05/20/19 09:06 Zyloprim PO 100 mg DAILY@0800 LYLE Administration Carvedilol 25 mg 05/13/19 22:45 05/20/19 09:07 Coreg PO 25 mg Q12HR LYLE Administration Clonidine HCl 0.1 mg 05/13/19 22:45 05/20/19 09:07 Catapres PO 0.1 mg BID LYLE Administration Fluticasone Propionate 1 spray 05/15/19 21:00 05/19/19 21:00 Flonase 0.05% Nasal [place] NASAL 1 spray HS LYLE Administration Hydralazine HCl 10 mg 05/13/19 22:45 05/20/19 12:52 Apresoline Tablet PO 10 mg WMHS LYLE Administration Aztreonam 1 gm/ Dextrose 50 mls @ 100 mls/hr 05/14/19 21:00 05/20/19 09:39 IVPB Infused Q12HR LYLE Infusion Ipratropium [place] 0.5 mg 05/14/19 16:36 05/14/19 16:56 Atrovent Neb INHALATION 0.5 mg Q6HRT PRN Administration Shortness Of Breath Lidocaine HCl 0.3 ml 05/14/19 08:09 Xylocaine 2% Local Inj INTRADERM ONCE PRN to numb area Metronidazole 500 mg 05/19/19 14:00 05/20/19 13:46 Flagyl PO 05/22/19 23:59 500 mg Q8HR LYLE Administration Montelukast Sodium 10 mg 05/14/19 09:00 05/20/19 09:07 Singulair PO 10 mg DAILY LYLE Administration Ondansetron HCl 4 mg 05/13/19 22:20 05/13/19 22:55 Zofran Inj IV PUSH 4 mg Q6H PRN Administration Nausea And Vomiting Pantoprazole Sodium 40 mg 05/14/19 21:00 05/20/19 09:06 Protonix Iv IV PUSH 40 mg Q12HR LYLE Administration Simvastatin 10 mg 05/14/19 09:00 05/20/19 09:06 Zocor PO 10 mg DAILY LYLE Administration Radiology Results: ITS Impressions Chest X-Ray 05/14/19 00:12 IMPRESSION: 1. Interstitial and airspace opacities at the lung bases, right greater than left which could represent mild pulmonary edema, atelectasis or pneumonia with possible small right pleural effusion. Abdomen/Pelvis CT 05/15/19 18:20 IMPRESSION: 1. Diverticulitis with a couple small abscesses in the pelvis which currently do not appear readily amenable to percutaneous drainage. 2. Indeterminate 1.9 cm lesion at the upper pole of the left kidney concerning for renal cell carcinoma. Consider further evaluation with pre and postcontrast MRI or CT. 3. Cystic lesion at the neck of the pancreas with adjacent coarse calcification most likely pseudocyst related to chronic pancreatitis although cystic neoplasm cannot be absolu
[2019-05-20 16:00] VITALS: BP 126/64; PULSE 70; RESP 14; TEMP 36.3; O2SAT 100
[2019-05-20 20:37] VITALS: PULSE 64
[2019-05-20] MEDS: FLUTICASONE PROPIONATE 0.05% NA SPR 16 GM BTL (*BKC) 1 SPRAY NASAL (20:37)
[2019-05-20 22:00] VITALS: BP 135/66; PULSE 75; RESP 18; TEMP 37; O2SAT 100
[2019-05-21 06:00] VITALS: BP 136/65; PULSE 81; RESP 18; TEMP 37.3; O2SAT 97
[2019-05-21 06:04] LABS: Hematocrit 28.3 % (37.0-47.0); Immature Platelet Fraction Pct 4.3 % (0.9-11.2); Mean Corpuscular HGB Conc 31.8 g/dl (32-36); Mean Corpuscular Volume 97.6 fl (80-100); Mean Platelet Volume 11.6 fl (7.4-10.4); Platelet Count Result 93 k/mm3 (150-375); Red Cell Distribution Width 16.8 % (11.5-14.5); White Blood Count 6.1 K/mm3 (4.5-10.0)
[2019-05-21 06:14] LABS: Albumin Level 2.2 g/dL (3.5-5.1); Blood Urea Nitrogen 50 mg/dL (7-17); Calcium 8.7 mg/dL (8.4-10.2); Carbon Dioxide 21 mmol/L (22-30); Chloride 98 mmol/L (98-107); Estimated CRCL calculation 14 ml/min; Estimated Glomerular Filt Rate 15; Glucose 89 mg/dL (65-105); Phosphorus 3.4 mg/dL (2.5-4.5); Potassium 4.1 mmol/L (3.4-5.0); Sodium 129 mmol/L (137-145)
[2019-05-21] MEDS: metroNIDAZOLE 250 MG TABLET 500 MG PO ×3 (06:19→21:56)
[2019-05-21 08:29] VITALS: PULSE 84
[2019-05-21] MEDS: carvediloL 25 MG TABLET PO ×2 (08:29→21:55)
[2019-05-21] MEDS: hydrALAZINE 10 MG TABLET PO ×4 (08:29→21:55)
[2019-05-21] MEDS: MONTELUKAST SODIUM 10 MG TABLET PO (08:29)
[2019-05-21] MEDS: CLONIDINE HCL 0.1 MG TABLET PO ×2 (08:29→17:16)
[2019-05-21] MEDS: allopurinoL 100 MG TABLET PO (08:29)
[2019-05-21] MEDS: SIMVASTATIN 10 MG TABLET PO (08:32)
--- NOTE | 2019-05-21 09:10 | WPDGIPROGNO ---
Progress Note: A&P Additional Plan Patient alert and comfortable this morning. Offers no specific complaints. Tolerating diet. Bowel habits essentially normal. Physical exam reveals patient to be alert. Vital signs stable. Abdomen is soft and nontender. Impression 1. Diverticulitis. Pericolonic abscess identified. Plan is for follow-up with surgery. Follow-up CT scan prior to that visit. Continue antibiotics per ID service. 2. Gastric ulcer. Plan is for proton pump inhibitor. Avoid nonsteroidal anti-inflammatory agents. Follow-up EGD advised in 2 months. 3. Thrombocytopenia. Etiology unclear. Hematology to follow. Subjective Date/time seen: 05/21/19 09:10 Objective Data Vital Signs Vital Signs: Vital Signs - 24 hr 05/20/19 16:00 05/20/19 20:37 05/20/19 22:00 Temperature 36.3 C L 37.0 C Pulse Rate 70 64 75 Respiratory Rate 14 18 Blood Pressure 126/64 135/66 Pulse Oximetry 100 100 05/21/19 06:00 05/21/19 08:29 Temperature 37.3 C Pulse Rate 81 84 Respiratory Rate 18 Blood Pressure 136/65 Pulse Oximetry 97 Intake/Output Intake/Output: Intake & Output 05/18/19 05/19/19 05/20/19 05/21/19 23:59 23:59 23:59 23:59 Intake Total 1700 2210 1850 410 Output Total 700 500 900 350 Balance 1000 1710 950 60 Meds/Results Medications: Active Medications Generic Name Dose Route Start Last Admin Trade Name Freq PRN Reason Stop Dose Admin Albuterol 2.5 mg 05/14/19 16:37 05/14/19 16:56 Albuterol Sulf Neb 2.5mg/0.5ml INHALATION 2.5 mg Q6HRT PRN Administration Shortness Of Breath Allopurinol 100 mg 05/14/19 08:00 05/21/19 08:29 Zyloprim PO 100 mg DAILY@0800 LYLE Administration Carvedilol 25 mg 05/13/19 22:45 05/21/19 08:29 Coreg PO 25 mg Q12HR LYLE Administration Clonidine HCl 0.1 mg 05/13/19 22:45 05/21/19 08:29 Catapres PO 0.1 mg BID LYLE Administration Fluticasone Propionate 1 spray 05/15/19 21:00 05/20/19 20:37 Flonase 0.05% Nasal [place] NASAL 1 spray HS LYLE Administration Hydralazine HCl 10 mg 05/13/19 22:45 05/21/19 08:29 Apresoline Tablet PO 10 mg WMHS LYLE Administration Aztreonam 1 gm/ Dextrose 50 mls @ 100 mls/hr 05/14/19 21:00 05/21/19 01:51 IVPB Infused Q12HR LYLE Infusion Ipratropium [place] 0.5 mg 05/14/19 16:36 05/14/19 16:56 Atrovent Neb INHALATION 0.5 mg Q6HRT PRN Administration Shortness Of Breath Lidocaine HCl 0.3 ml 05/14/19 08:09 Xylocaine 2% Local Inj INTRADERM ONCE PRN to numb area Metronidazole 500 mg 05/19/19 14:00 05/21/19 06:19 Flagyl PO 05/22/19 23:59 500 mg Q8HR LYLE Administration Montelukast Sodium 10 mg 05/14/19 09:00 05/21/19 08:29 Singulair PO 10 mg DAILY LYLE Administration Ondansetron HCl 4 mg 05/13/19 22:20 05/13/19 22:55 Zofran Inj IV PUSH 4 mg Q6H PRN Administration Nausea And Vomiting Pantoprazole Sodium 40 mg 05/21/19 09:00 Protonix PO Q12HR LYLE Simvastatin 10 mg 05/14/19 09:00 05/21/19 08:32 Zocor PO 10 mg DAILY LYLE Administration Radiology Results: ITS Impressions Chest X-Ray 05/14/19 00:12 IMPRESSION: 1. Interstitial and airspace opacities at the lung bases, right greater than left which could represent mild pulmonary edema, atelectasis or pneumonia with possible small right pleural effusion. Abdomen/Pelvis CT 05/15/19 18:20 IMPRESSION: 1. Diverticulitis with a couple small abscesses in the pelvis which currently do not appear readily amenable to percutaneous drainage. 2. Indeterminate 1.9 cm lesion at the upper pole of the left kidney concerning for renal cell carcinoma. Consider further evaluation with pre and postcontrast MRI or CT. 3. Cystic lesion at the neck of the pancreas with adjacent coarse calcification most likely pseudocyst related to chronic pancreatitis although cystic neoplasm cannot be absolutely excluded. This could be further evaluated at the same
[2019-05-21] MEDS: PANTOPRAZOLE 40 MG TABLET PO ×2 (09:52→21:55)
[2019-05-21] MEDS: AZTREONAM 1 GM in DEXTROSE 5% IN WATER 50 ML IVPB ×2 (11:25→21:55)
--- NOTE | 2019-05-21 12:48 | PM.IMPN ---
Progress Note: A&P Assessment and Plan (1) Acute GI bleeding: Code(s): K92.2 - Gastrointestinal hemorrhage, unspecified Status: Inactive Assessment and Plan: See above, pt is recommended by Dr. Carballo to continue IV antibiotics for 10 days, for diverticulitis, today, being the 8th day. Sp Colonscopy and EGD under DR Blas. Ct of abdomen showed diverticulitis with abscess similar to seen with colonoscopy and patient was diagnosed with diverticulitis last October, Colonscopy here showed Sigmoid diverticulitis. EGD showed GASTRIC ULCER.pt is recommended by Dr. Carballo to continue IV antibiotics for 10 days, for diverticulitis, today, being the 8th day. Pt is transitioned to oral protonix. (2) Acute on chronic blood loss anemia: Code(s): D62 - Acute posthemorrhagic anemia Status: Acute Assessment and Plan: Sp blood transfusion Will monitor hemoglobin and hematocrit closely. Pt is seeing DR Koki MONET fo thrombocytopenia Hb today is 9, platelets today are 93 (3) Hypertension: Code(s): I10 - Essential (primary) hypertension Status: Acute Assessment and Plan: Blood pressures were reviewed and they are running in the 150s to 160 systolic. Continue to monitor Bps (4) Chronic kidney disease, stage 4 (severe): Code(s): N18.4 - Chronic kidney disease, stage 4 (severe) Status: Chronic Assessment and Plan: Creatinine is stable at 2.8 (5) Pancytopenia: Code(s): D61.818 - Other pancytopenia Status: Chronic Assessment and Plan: Patient with pancytopenia chronic clinically stable will consult customer services supervisor for further recommendation, hb is 8 (6) Hyponatremia: Code(s): E87.1 - Hypo-osmolality and hyponatremia Status: Acute Assessment and Plan: Continue to monitor with daily labs, sodium is 129 Subjective Date/time seen: 05/21/19 12:48 Interval history: Patient is 78-year-old female with a history of chronic anemia diverticulitis initially patient presented to outside [facility] with a complaint of black tarry stool and eventually turn into bright red blood patient patient was transfused and transferred to the inpatient hospital for higher level of care, patient is seen by GI,her last colonoscopy was in October of 2018 and did not show any significant pathology. Ct of abdomen showed diverticulitis with abscess similar to seen with colonoscopy and patient was diagnosed with diverticulitis last October, Colonscopy here showed Sigmoid diverticulitis. Marked edema. EGD showed GASTRIC ULCER. Sp blood transfusion , EGD and colonscopy, being seen by DR Blas Gi and DR Carballo ID As per previous notes, pt is recommended by Dr. Carballo to continue IV antibiotics for 10 days, for diverticulitis, today, being the 8th day. Pt is tolerating low fiber diet , pt having more formed stools. Review of Systems Review of Systems: All systems reviewed & are unremarkable except as noted in HPI and below Gastrointestinal: Gastrointestinal: Denies abdominal pain and Denies diarrhea Neurologic: Denies confusion Psychiatric: Psychiatric: Denies confusion Exam Narrative: Exam Narrative: Elderly frail Const: General: comfortable and no acute distress; No confusion Orientation/consciousness: No confusion HENMT: General nose exam: Normal nares present Mouth: Yes moist mucous membranes Eyes: General: appearance normal, both eyes and all related structures Sclera: sclerae normal Neck: Neck: supple Resp: Effort & Inspection: normal respiratory effort Auscultation: clear to auscultation bilaterally Cardio: Rate: regular rate Rhythm: regular rhythm GI: Auscultation: normal bowel sounds Other: Non tender abdomen Skin: General skin exam: normal color and no rashes or lesions noted Neuro: General: No confusion Speech: normal speech Sensory Exam: normal sensation Extrem: General: normal to inspection
[2019-05-21 16:05] VITALS: BP 140/63; PULSE 67; RESP 14; TEMP 36.3; O2SAT 100
[2019-05-21 21:55] VITALS: PULSE 75
[2019-05-21] MEDS: FLUTICASONE PROPIONATE 0.05% NA SPR 16 GM BTL (*BKC) 1 SPRAY NASAL (21:55)
[2019-05-21 22:00] VITALS: BP 133/57; PULSE 75; RESP 16; TEMP 36.7; O2SAT 98
[2019-05-22] MEDS: metroNIDAZOLE 250 MG TABLET 500 MG PO ×3 (05:42→20:42)
[2019-05-22 06:00] VITALS: BP 128/58; PULSE 74; RESP 18; TEMP 36.6; O2SAT 98
[2019-05-22 06:26] LABS: Hematocrit 26.9 % (37.0-47.0); Hemoglobin 8.6 g/dL (12.0-15.0); Immature Platelet Fraction Pct 4.7 % (0.9-11.2); Mean Corpuscular Hemoglobin 31.2 pg (26-34); Mean Corpuscular Volume 97.5 fl (80-100); Mean Platelet Volume 11.5 fl (7.4-10.4); Platelet Count Result 96 k/mm3 (150-375); Red Blood Count 2.76 M/mm3 (4.2-5.4); Red Cell Distribution Width 16.8 % (11.5-14.5)
[2019-05-22 06:40] LABS: Albumin Level 2.2 g/dL (3.5-5.1); Blood Urea Nitrogen 52 mg/dL (7-17); Calcium 8.7 mg/dL (8.4-10.2); Carbon Dioxide 20 mmol/L (22-30); Chloride 95 mmol/L (98-107); Estimated CRCL calculation 14 ml/min; Estimated Glomerular Filt Rate 16; Glucose 82 mg/dL (65-105); Phosphorus 3.4 mg/dL (2.5-4.5); Potassium 4.1 mmol/L (3.4-5.0); Sodium 128 mmol/L (137-145)
[2019-05-22] MEDS: AZTREONAM 1 GM in DEXTROSE 5% IN WATER 50 ML IVPB ×2 (08:07→20:42)
[2019-05-22 08:08] VITALS: PULSE 80
[2019-05-22] MEDS: CLONIDINE HCL 0.1 MG TABLET PO ×2 (08:08→17:04)
[2019-05-22] MEDS: SIMVASTATIN 10 MG TABLET PO (08:08)
[2019-05-22] MEDS: MONTELUKAST SODIUM 10 MG TABLET PO (08:08)
[2019-05-22] MEDS: PANTOPRAZOLE 40 MG TABLET PO ×2 (08:08→20:42)
[2019-05-22] MEDS: carvediloL 25 MG TABLET PO ×2 (08:08→20:41)
[2019-05-22] MEDS: hydrALAZINE 10 MG TABLET PO ×4 (08:08→20:42)
[2019-05-22] MEDS: allopurinoL 100 MG TABLET PO (08:09)
[2019-05-22 14:00] VITALS: BP 150/72; PULSE 73; RESP 20; TEMP 36.4; O2SAT 100
--- NOTE | 2019-05-22 15:06 | PM.IMPN ---
Progress Note: A&P Assessment and Plan (1) Acute GI bleeding: Code(s): K92.2 - Gastrointestinal hemorrhage, unspecified Status: Inactive Assessment and Plan: See above, pt is recommended by Dr. Carballo to continue IV antibiotics for 10 days, for diverticulitis, today, being the 8th day. Sp Colonscopy and EGD under DR Blas. Ct of abdomen showed diverticulitis with abscess similar to seen with colonoscopy and patient was diagnosed with diverticulitis last October, Colonscopy here showed Sigmoid diverticulitis. EGD showed GASTRIC ULCER.pt is recommended by Dr. Carballo to continue IV antibiotics for 10 days, for diverticulitis, today, being the 9th day. Pt is transitioned to oral protonix. Pt is tolerating low fiber diet , pt having more formed stools. pt not in any abdominal pain. (2) Acute on chronic blood loss anemia: Code(s): D62 - Acute posthemorrhagic anemia Status: Acute Assessment and Plan: Sp blood transfusion Will monitor hemoglobin and hematocrit closely. Pt is seeing DR Telles [facility] fo thrombocytopenia Hb today is 8.6, platelets today are 96 (3) Hypertension: Code(s): I10 - Essential (primary) hypertension Status: Acute Assessment and Plan: Blood pressures were reviewed and they are running in the 150s to 160 systolic. Continue to monitor Bps (4) Chronic kidney disease, stage 4 (severe): Code(s): N18.4 - Chronic kidney disease, stage 4 (severe) Status: Chronic Assessment and Plan: Creatinine is stable at 2.8 (5) Pancytopenia: Code(s): D61.818 - Other pancytopenia Status: Chronic Assessment and Plan: Patient with pancytopenia chronic clinically stable will consult business objects report developer for further recommendation, hb is 8.6 (6) Hyponatremia: Code(s): E87.1 - Hypo-osmolality and hyponatremia Status: Acute Assessment and Plan: Continue to monitor with daily labs, sodium is 128 Subjective Date/time seen: 05/22/19 15:06 Interval history: Patient is 78-year-old female with a history of chronic anemia diverticulitis initially patient presented to outside [facility] with a complaint of black tarry stool and eventually turn into bright red blood patient patient was transfused and transferred to the inpatient hospital for higher level of care, patient is seen by GI,her last colonoscopy was in October of 2018 and did not show any significant pathology. Ct of abdomen showed diverticulitis with abscess similar to seen with colonoscopy and patient was diagnosed with diverticulitis last October, Colonscopy here showed Sigmoid diverticulitis. Marked edema. EGD showed GASTRIC ULCER. Sp blood transfusion , EGD and colonscopy, being seen by DR Blas Gi and DR Carballo ID As per previous notes, pt is recommended by Dr. Carballo to continue IV antibiotics for 10 days, for diverticulitis, today, being the 9th day. Then pt to follow surgery team in [address] of abdomen. Review of Systems Review of Systems: All systems reviewed & are unremarkable except as noted in HPI and below Gastrointestinal: Gastrointestinal: Denies abdominal pain and Denies diarrhea Neurologic: Denies confusion Psychiatric: Psychiatric: Denies confusion Exam Narrative: Exam Narrative: Elderly frail Const: General: comfortable and no acute distress; No confusion Orientation/consciousness: No confusion HENMT: General nose exam: Normal nares present Mouth: Yes moist mucous membranes Eyes: General: appearance normal, both eyes and all related structures Sclera: sclerae normal Neck: Neck: supple Resp: Effort & Inspection: normal respiratory effort Auscultation: clear to auscultation bilaterally Cardio: Rate: regular rate Rhythm: regular rhythm GI: Auscultation: normal bowel sounds Other: Non tender abdomen Skin: General skin exam: normal color and no rashes or lesions noted Neuro: General: No co
[2019-05-22 20:41] VITALS: PULSE 70
[2019-05-22] MEDS: FLUTICASONE PROPIONATE 0.05% NA SPR 16 GM BTL (*BKC) 1 SPRAY NASAL (20:58)
[2019-05-22 22:00] VITALS: BP 119/54; PULSE 83; RESP 18; TEMP 37.1; O2SAT 98
[2019-05-23 06:00] VITALS: BP 128/64; PULSE 84; RESP 18; TEMP 37.2; O2SAT 98
[2019-05-23 07:44] LABS: Albumin Level 2.1 g/dL (3.5-5.1); Blood Urea Nitrogen 52 mg/dL (7-17); Calcium 8.6 mg/dL (8.4-10.2); Carbon Dioxide 20 mmol/L (22-30); Chloride 95 mmol/L (98-107); Estimated CRCL calculation 14 ml/min; Estimated Glomerular Filt Rate 16; Glucose 83 mg/dL (65-105); Phosphorus 3.4 mg/dL (2.5-4.5); Potassium 4.3 mmol/L (3.4-5.0); Sodium 127 mmol/L (137-145)
[2019-05-23 07:53] LABS: Hemoglobin 8.5 g/dL (12.0-15.0); Immature Platelet Fraction Pct 5.4 % (0.9-11.2); Mean Corpuscular HGB Conc 32.7 g/dl (32-36); Mean Corpuscular Hemoglobin 31.3 pg (26-34); Mean Corpuscular Volume 95.6 fl (80-100); Mean Platelet Volume 11.8 fl (7.4-10.4); Platelet Count Result 91 k/mm3 (150-375); Red Blood Count 2.72 M/mm3 (4.2-5.4); Red Cell Distribution Width 16.7 % (11.5-14.5); White Blood Count 7.5 K/mm3 (4.5-10.0)
[2019-05-23] MEDS: AZTREONAM 1 GM in DEXTROSE 5% IN WATER 50 ML IVPB (08:48)
[2019-05-23] MEDS: hydrALAZINE 10 MG TABLET PO ×2 (08:48→12:07)
[2019-05-23] MEDS: allopurinoL 100 MG TABLET PO (08:48)
[2019-05-23 08:49] VITALS: PULSE 88
[2019-05-23] MEDS: carvediloL 25 MG TABLET PO (08:49)
[2019-05-23] MEDS: MONTELUKAST SODIUM 10 MG TABLET PO (08:50)
[2019-05-23] MEDS: CLONIDINE HCL 0.1 MG TABLET PO (08:50)
[2019-05-23] MEDS: SIMVASTATIN 10 MG TABLET PO (08:51)
[2019-05-23] MEDS: PANTOPRAZOLE 40 MG TABLET PO (08:51)
--- NOTE | 2019-05-23 09:10 | PM.DS ---
DS: Diagnosis Admitting Diagnosis Admitting Diagnosis: Gastrointestinal hemorrhage, unspecified Discharge Diagnosis (1) Acute GI bleeding: Code(s): K92.2 - Gastrointestinal hemorrhage, unspecified Status: Inactive Assessment and Plan: See above, pt is recommended by Dr. Carballo to continue IV antibiotics for 10 days, for diverticulitis, today, being the 8th day. Sp Colonscopy and EGD under DR Blas. Ct of abdomen showed diverticulitis with abscess similar to seen with colonoscopy and patient was diagnosed with diverticulitis last October, Colonscopy here showed Sigmoid diverticulitis. EGD showed GASTRIC ULCER.pt is recommended by Dr. Carballo to continue IV aztreonam and IV metronidazole for 10 days, for diverticulitis, today, being the 10th day. Pt is transitioned to oral protonix. Pt is tolerating low fiber diet , pt having more formed stools. pt not in any abdominal pain. Pt is stable for discharge. Plan on discharge pt is to have rpt CT abdomen and follow with Dr Torres surgery team in @2 weeks time. (2) Acute on chronic blood loss anemia: Code(s): D62 - Acute posthemorrhagic anemia Status: Acute Assessment and Plan: Sp blood transfusion Will monitor hemoglobin and hematocrit closely. Pt is seeing DR Telles [facility] fo thrombocytopenia Hb today is 8.5, platelets today are 91 (3) Hypertension: Code(s): I10 - Essential (primary) hypertension Status: Acute Assessment and Plan: Blood pressures is stable. (4) Chronic kidney disease, stage 4 (severe): Code(s): N18.4 - Chronic kidney disease, stage 4 (severe) Status: Chronic Assessment and Plan: Creatinine is stable at 2.8. Na is 127 today. (5) Pancytopenia: Code(s): D61.818 - Other pancytopenia Status: Chronic Assessment and Plan: Patient with pancytopenia chronic clinically stable will consult dye lab technician for further recommendation, hb is 8.5 (6) Hyponatremia: Code(s): E87.1 - Hypo-osmolality and hyponatremia Status: Acute Assessment and Plan: Continue to monitor with daily labs, sodium is 127 DS: Summary Time Spent with Patient Time attestation: Total time spent providing and/or coordinating discharge services:38 minutes on day of discharge Exam Narrative: Exam Narrative: Elderly frail Const: General: comfortable and no acute distress; No confusion Orientation/consciousness: No confusion HENMT: General nose exam: Normal nares present Mouth: Yes moist mucous membranes Eyes: General: appearance normal, both eyes and all related structures Sclera: sclerae normal Neck: Neck: supple Resp: Effort & Inspection: normal respiratory effort Auscultation: clear to auscultation bilaterally Cardio: Rate: regular rate Rhythm: regular rhythm GI: Auscultation: normal bowel sounds Other: Non tender abdomen Skin: General skin exam: normal color and no rashes or lesions noted Neuro: General: No confusion Speech: normal speech Sensory Exam: normal sensation Extrem: General: normal to inspection Psych: Mental Status: mental status grossly normal Affect: normal affect and Anxious affect present DS: Data Data Completed and Pending Completed studies during hospitalization: Pending at discharge 05/14/19 13:24 Surgical [PTH] Routine Labs on day of discharge: Labs from last 24 hours 05/23/19 05/23/19 06:52 06:52 WBC 7.5 RBC 2.72 L Hgb 8.5 L Hct 26.0 L MCV 95.6 MCH 31.3 MCHC 32.7 RDW 16.7 H Plt Count 91 L MPV 11.8 H % Immature Plt Fraction 5.4 Sodium 127 L Potassium 4.3 Chloride 95 L Carbon Dioxide 20 L BUN 52 H Creatinine 2.80 H Estim Creat Clear Calc 14 Estimated GFR 16 L Glucose 83 Calcium 8.6 Phosphorus 3.4 Albumin 2.1 L Discharge Plan Discharge Attending physician on discharge: Dori Lopez Consulting providers: Sanjay Blas
== END 2019-05-23 12:35 | disposition home or self-care (01) | DRG 378 ==
LOC: ANHIMU 05-16 21:56 → ANH3MEDSUR 05-18 16:20 → ANHIMU 05-26 10:22
PROVIDERS: Family Medicine; Internal Medicine Gastroenterology; Internal Medicine Medical Oncology; Physician Assistant; Surgery; Admitting Provider Internal Medicine; PCP Internal Medicine; Visit Provider Family Medicine
PROC: 0DJ08ZZ Inspection of Upper Intestinal Tract, Via Natural or Artificial Opening Endoscopic (ICD-10-PCS; CPT 43235; principal; 2019-05-14 12:30)
DX: K57.21 Diverticulitis of large intestine with perforation and abscess with bleeding (principal); D62 Acute posthemorrhagic anemia; N18.4 Chronic kidney disease, stage 4 (severe); D61.818 Other pancytopenia; E87.1 Hypo-osmolality and hyponatremia; K25.4 Chronic or unspecified gastric ulcer with hemorrhage; I12.9 Hypertensive chronic kidney disease with stage 1 through stage 4 chronic kidney disease, or unspecified chronic kidney disease; K64.8 Other hemorrhoids; K22.2 Esophageal obstruction; M10.9 Gout, unspecified; E78.5 Hyperlipidemia, unspecified; Z96.641 Presence of right artificial hip joint; N28.9 Disorder of kidney and ureter, unspecified; K80.80 Other cholelithiasis without obstruction; Z85.3 Personal history of malignant neoplasm of breast
CPT/HCPCS: 36415; 36430; 71045; 74176; 80048; 80069; 82784; 83735; 84155; 84165; 85014; 85018; 85027; 85055; 86140; 86850; 86900; 86901; 86923; 88305; 88342; 94640; 97110; 97116; 97161; 97165; 97530; 97535; A9270; C9113; J1940; J2405; J2704; J3475; J7050; J7120; P9016

== ENCOUNTER 2019-05-25 10:44 | Outpatient (CLI) | payer MEDICARE, SELFPAY ==
[2019-05-25 10:53] LABS: Basophils Absolute Auto 0.01 K/mm3 (0.00-0.10); Basophils Percent Auto 0.2 % (0.0-1.0); Eosinophils Absolute Auto 0.02 K/mm3 (0.02-0.50); Eosinophils Percent Auto 0.3 % (1.0-6.0); Hematocrit 28.3 % (35.0-42.0); Hemoglobin 9.1 g/dL (11.7-13.8); Immature Granulocyte Absolute 0.03 K/mm3 (0.00-0.00); Immature Granulocyte Percent A 0.5 % (0.0-0.0); Lymphocytes Absolute Auto 0.42 K/mm3 (1.10-4.50); Lymphocytes Percent Auto 6.4 % (18.0-42.0); Mean Corpuscular HGB Conc 32.2 g/dL (32.0-36.0); Mean Corpuscular Hemoglobin 31.2 pg (27.0-31.0); Mean Corpuscular Volume 96.9 fL (78.0-102.0); Mean Platelet Volume 10.9 fl (9.2-11.8); Monocytes Absolute Auto 0.48 K/mm3 (0.10-0.90); Monocytes Percent Auto 7.4 % (2.0-11.0); Neutrophils Absolute Auto 5.6 K/mm3 (1.7-7.2); Neutrophils Percent Auto 85.2 % (50.0-70.0); Platelet Count Result 99 K/mm3 (150-420); Red Blood Count 2.92 M/mm3 (4.20-5.40); Red Cell Distribution Width 16.6 % (11.6-14.4); White Blood Count 6.5 K/mm3 (4.8-10.8)
== END 2019-05-25 10:45 | disposition home or self-care (01) ==
PROVIDERS: PCP Internal Medicine; Visit Provider Internal Medicine Nephrology
DX: N18.4 Chronic kidney disease, stage 4 (severe) (principal); D63.1 Anemia in chronic kidney disease
CPT/HCPCS: 36415; 85025

== ENCOUNTER 2019-05-26 01:03 | Emergency (ER) | payer MEDICARE, SELFPAY ==
--- NOTE | ~2019-05-26 | XR_ITS ---
XR chest 1V portable DATE: 05/26/2019 02:30 INDICATION: Dyspnea with exertion. Progressive pedal edema. TECHNIQUE: AP and lateral views COMPARISON: 05/13/2019 portable AP chest at 2338 hours FINDINGS: Mild atelectasis in the lower lung zones, possible minimal left lower lobe infiltrate. Slig ht blunting of the costophrenic angles may represent minimal pleural effusions. No pulmonary vascular congestion. No hilar or mediastinal enlargement is evident. Heart size is likely within normal range considering AP projection. There is aortic calcification and unfolding. Diffuse osteopenia. IMPRESSION: Bilateral lower lung mild infiltrate or atelectasis, left greater than right, improved on the right since 05/13/2019 Diminished pulmonary vascular prominence since 05/13/2019 Reviewed, dictated and finalized at location A. ROL MANAGER IMPRESSION: Bilateral lower lung mild infiltrate or atelectasis, left greater t [place] right, improved on the right since 05/13/2019 Diminished pulmonary vascular prominence since 05/13/2019
--- NOTE | ~2019-05-26 | CT_ITS ---
EXAMINATION: CT abdomen pelvis wo con DATE: 05/26/2019 02:30 INDICATION: Lower right sided back pain for 5 hours. Constipation. Leg swelling. Shortness of breath with exertion. TECHNIQUE: Computed tomography (CT) of the abdomen and pelvis was performed without intravenous contr ast. Automated exposure control and iterative reconstruction technique were employed. Exam dose: 394 .20 mGy-cm total exam DLP. COMPARISON: 06/18/2017 CT abdomen pelvis FINDINGS: Moderate right pleural effusion. There is dependent right lower lobe and mild left lower lo be atelectasis. Cardiomegaly. Mitral annulus and aortic valvular calcification. No pericardial or left pleural effusi on. Stable approximately 12 mm hepatic cyst (series 3 image 36). Probable 6 mm hepatic cyst (image 64). A pproximately 2 cm stable lower right hepatic lobe cyst (image 82). Occasional stable benign calcifica tions of the liver. Small stones are noted in the dependent aspect of the gallbladder. No gallbladder distention. Gallbla dder wall thickness appears within normal range. No pericholecystic fluid or or stranding. Normal splenic size. Again noted is an approximately 2.5 cm-3 cm cystic lesion of the pancreatic body , relatively stable in appearance since 05/15/2011. There is an adjacent calcification. There is includ es pancreatic pseudocyst versus cystic neoplasm. Normal adrenal glands. Hyperdense 6 mm left renal cyst. Probable 8 mm left upper pole renal cyst. Evaluation however is limi erinn due to lack of IV contrast material. No urinary tract calculus or hydroureteronephrosis is detected. Mild nonspecific bilateral perinephri c and periureteral fat stranding. There is atherosclerotic calcification of the abdominal aorta and iliac arteries but no abdominal aor tic aneurysm. No intraperitoneal or retroperitoneal or pelvic mass lesion or adenopathy or ascites is noted. Small hiatal hernia. There are numerous diverticula of the left and right colon. There is sigmoid colon wall thickening wi th extensive adjacent fat stranding in the pelvis. There is suggestion of a few pockets of extralumin al gas and fluid likely due to perforation/diverticular abscesses. These include in the left lower qu adrant measuring 2 x 1.8 x 4 cm (axial image 113), immediately posterior to the distal sigmoid measur ing 2.2 x 0.9 cm (axial image 125) and in the right lower quadrant measuring approximately 4.3 x 3 cm (axial image 127). There is extensive streak artifact from bilateral hip prostheses, which limits evaluation of the pelv is. No suspicious osteolytic or osteoblastic lesion. Degenerative disc disease at L5-S1. IMPRESSION: Sigmoid diverticulitis and multiple diverticular abscesses Reviewed, dictated and finalized at [facility]. Reviewed, dictated and finalized at location A. IE BREAKER
[2019-05-26 01:05] VITALS: BP 158/90; PULSE 72; RESP 20; TEMP 36.6; O2SAT 100
[2019-05-26 02:08] LABS: Basophils Absolute Auto 0.02 K/mm3 (0.00-0.10); Basophils Percent Auto 0.2 % (0.0-1.0); Eosinophils Absolute Auto 0.03 K/mm3 (0.02-0.50); Eosinophils Percent Auto 0.4 % (1.0-6.0); Hematocrit 26.2 % (35.0-42.0); Hemoglobin 8.6 g/dL (11.7-13.8); Immature Granulocyte Absolute 0.03 K/mm3 (0.00-0.00); Immature Granulocyte Percent A 0.4 % (0.0-0.0); Immature Platelet Fraction Pct 3.6 % (1.0-7.0); Lymphocytes Absolute Auto 0.41 K/mm3 (1.10-4.50); Lymphocytes Percent Auto 4.9 % (18.0-42.0); Mean Corpuscular HGB Conc 32.8 g/dL (32.0-36.0); Mean Corpuscular Hemoglobin 31.4 pg (27.0-31.0); Mean Corpuscular Volume 95.6 fL (78.0-102.0); Mean Platelet Volume 10.6 fl (9.2-11.8); Monocytes Absolute Auto 0.49 K/mm3 (0.10-0.90); Monocytes Percent Auto 5.9 % (2.0-11.0); Neutrophils Absolute Auto 7.3 K/mm3 (1.7-7.2); Neutrophils Percent Auto 88.2 % (50.0-70.0); Platelet Count Result 98 K/mm3 (150-420); Red Blood Count 2.74 M/mm3 (4.20-5.40); Red Cell Distribution Width 16.6 % (11.6-14.4); White Blood Count 8.3 K/mm3 (4.8-10.8)
[2019-05-26 02:09] LABS: Add Urine Microscopic? YES; Appearance Urine Cloudy (Clear); Bilirubin Urine Negative (Negative); Blood Urine Negative (Negative); Color Urine Yellow (Yellow); Glucose Urine UA Negative (Negative); Ketones Urine Trace (Negative); Leukocyte Esterase Ur 1+ (Negative); Nitrate Urine Negative (Negative); Protein Urine 1+ (Negative); Urobilinogen Urine 0.2 mg/dL (0.2-1.0); pH Urine 5.5 (5.0-8.0)
[2019-05-26 02:20] LABS: Albumin Level 1.5 g/dL (3.4-5.0); Alkaline Phosphatase 109 U/L (46-116); Anion Gap 18.4 mmol/L (7-16); Aspartate Amino Transferase 9 U/L (15-37); Bilirubin,Total 0.3 mg/dL (0.00-1.00); Blood Urea Nitrogen 56 mg/dL (7-18); Calcium 8.5 mg/dL (8.5-10.1); Carbon Dioxide 20 mmol/L (21-32); Chloride 99 mmol/L (98-108); Estimated Glomerular Filt Rate 13; Glucose 95 mg/dL (70-99); Osmolality Calculated 291 mOsm/kg (285-295); Potassium 4.4 mmol/L (3.5-5.1); Sodium 133 mmol/L (136-145); Total Protein 5.6 g/dL (6.4-8.2)
[2019-05-26 02:21] LABS: RBC Urine 0-2 /hpf (0-2)
[2019-05-26 02:22] LABS: Bacteria Urine Trace /hpf; Budding Yeast Urine Present /hpf; Renal Epithelial Cells Urine Few /hpf; Squamous Epithelial Cell Urine Few /hpf (Few)
[2019-05-26 02:23] LABS: BNP 1200 pg/mL (0-100)
--- NOTE | 2019-05-26 02:23 | ED.ABDPAIN ---
HPI - Abdominal Pain General Chief Complaint: Urogenital-Female Stated Complaint: lower right back pain History of Present Illness HPI narrative: 78 y.o. female with developed right flank pain at 19:30, constant, difficult to describe it just hurts , rated at #8/10, assoc. with brief episode of nausea, no sweating. Pain persists, made worse by laying supine. Nothing seems to make it better. She's never had this before. Jomar from [place] on 05/23 after 10 day admission for treatment of a ruptured diverticuli, treated with aztreonam and metronidazole. Daughters state she has had a marked increase in lower leg swelling over the last 3 days. 05/15 CT abd/pelvis: 1. Diverticulitis with a couple small abscesses in the pelvis which currently do not appear readily amenable to percutaneous drainage. 2. Indeterminate 1.9 cm lesion at the upper pole of the left kidney concerning for renal cell carcinoma. Consider further evaluation with pre and postcontrast MRI or CT. 3. Cystic lesion at the neck of the pancreas with adjacent coarse calcification most likely pseudocyst related to chronic pancreatitis although cystic neoplasm cannot be absolutely excluded. This could be further evaluated at the same time as the renal lesion. 4. Cardiomegaly with trace pericardial effusion. 5. Small left and [id number] right pleural effusions. 6. Cholelithias Related Data Home Medications Medication Instructions Recorded Confirmed allopurinol 100 mg PO DAILY 05/13/19 05/26/19 aspirin 81 mg PO DAILY 05/13/19 05/26/19 betamethasone, augmented 1 applic TOPICAL PRN 05/13/19 05/26/19 carvedilol 25 mg PO BID 05/13/19 05/26/19 cholecalciferol (vitamin D3) 1,000 unit PO DAILY 05/13/19 05/26/19 [Vitamin D3] clonidine HCl 0.1 mg PO BID 05/13/19 05/26/19 docusate calcium [Surfak] 240 mg PO DAILY 05/13/19 05/26/19 fluticasone propionate [Flonase 1 spray INTRANASAL DAILY 05/13/19 05/26/19 Allergy Relief] hydralazine 10 mg PO QID 05/13/19 05/26/19 montelukast 10 mg PO DAILY 05/13/19 05/26/19 psyllium husk [Metamucil] 0.4 g PO DAILY 05/13/19 05/26/19 simvastatin 10 mg PO DAILY 05/13/19 05/26/19 vitamin B complex [B 1 tablet PO DAILY 05/13/19 05/26/19 Complex-Vitamin B12] Allergies Allergy/AdvReac Type Severity Reaction Status Date / Time ciprofloxacin Allergy Severe Anaphylactic Verified 05/06/19 10:34 Shock cephalexin Allergy Intermediate TINNITIS Verified 05/06/19 10:34 Penicillins Allergy Intermediate HIVES Verified 05/06/19 10:34 Quinolones Allergy Intermediate HIVES Verified 05/06/19 10:34 Review of Systems Constitutional: Constitutional: Reports no additional constitutional complaints, Denies chills and Denies fever(s) Eyes: Eyes: Reports no additional eye complaints ENT: Reports sore throat Cardiovascular: Cardiovascular: Denies chest pain and Denies lightheadedness Respiratory: Respiratory: Reports dyspnea Gastrointestinal: Gastrointestinal: Reports as per HPI Comments: Last BM 2 days ago, loose but formed, no recent change. Genitourinary: Genitourinary: Denies dysuria Comments: urinates every 1 -2 hours. Musculoskeletal: Musculoskeletal: Reports muscle weakness Integumentary/Breasts: Skin/Breast: Denies rash Neurologic: Denies syncope Psychiatric: Psychiatric: Denies depression Hematologic/Lymphatic: Hematologic/Lymphatic: Denies easy bruising Allergic/Immunologic: Allergic/Immunologic: Denies seasonal rhinorrhea [facility] Social History Social History Social History: The patient lives in her own home [place]. Her children live nearby. She designates her daughter's as her surrogate decision makers and she wishes to be a DNR/DNI. She is a lifelong nonsmoker and denies alcohol and drug abuse. Spiritual care concerns: No Agree to blood products: Yes Exam Const: General: No diaphoretic Orientation/consciousness: patient oriented x3 Other: appears uncom
[2019-05-26] MEDS: MORPHINE SULFATE 4 MG/ML INJ IV PUSH (02:24)
[2019-05-26] MEDS: ONDANSETRON INJ 4 MG/2 ML VIAL IV PUSH (02:24)
--- NOTE | 2019-05-26 02:25 | ECG_ITS ---
Measurements Intervals [place] Rate: 80 P: 69 NM: 174 QRS: -12 QRSD: 93 T: 49 QT: 363 QTc: 419 Interpretive Statements SINUS RHYTHM WITH SINUS ARRHYTHMIA BASELINE ARTIFACT- I, II, III, AVR NORMAL ECG Electronically Signed On 05-26-2019 7:13:30 [employer] by Petar Saunders D.O.
[2019-05-26 02:32] LABS: Alanine Aminotransferase < 6 U/L (14-59)
[2019-05-26 02:34] LABS: Magnesium 1.6 mg/dL (1.8-2.4)
[2019-05-26 02:41] LABS: Troponin I < 0.02 ng/mL (0.00-0.056)
[2019-05-26] MEDS: HYDROMORPHONE HCL 2 MG/ML VIAL 0.5 MG IV PUSH ×2 (03:10→04:01)
--- NOTE | 2019-05-26 03:11 | PC.NURSE ---
pt resting per cot with eyes closed upon entering room. when spoken to, pt startled awake, continues to rate pain 9/10. erp notified.
[2019-05-26 03:27] LABS: Lipase 67 U/L (73-393)
--- NOTE | 2019-05-26 03:38 | PC.NURSE ---
spoke with [facility] for transfer. awaiting call back from dr garcia.
[2019-05-26] MEDS: metroNIDAZOLE 500 MG/ISO 100ML 500 MG/100 ML BAG 100 MG IVPB (03:52)
--- NOTE | 2019-05-26 04:04 | PC.NURSE ---
erp speaking with dr garcia, at [facility].
[2019-05-26 04:31] LABS: Lactic Acid 0.5 mmol/L (0.4-2.0)
[2019-05-26 05:31] VITALS: BP 128/70; PULSE 71; RESP 20; TEMP 37.1; O2SAT 97
--- NOTE | 2019-05-26 05:50 | PC.NURSE ---
saas unavailable. [facility] called. awaiting arrival.
[2019-05-26 06:20] VITALS: BP 137/68; PULSE 71; RESP 20; TEMP 37.1; O2SAT 98
== END 2019-05-26 06:25 | disposition short-term general hospital (02) ==
PROVIDERS: Emergency Provider Family Medicine; PCP Internal Medicine
DX: K65.1 Peritoneal abscess (principal); N19 Unspecified kidney failure; K57.92 Diverticulitis of intestine, part unspecified, without perforation or abscess without bleeding; R79.9 Abnormal finding of blood chemistry, unspecified; M79.89 Other specified soft tissue disorders; R06.00 Dyspnea, unspecified
CPT/HCPCS: 36415; 71045; 74176; 80053; 81001; 83605; 83690; 83735; 83880; 84484; 85025; 85055; 93005; 96365; 96367; 96375; 99284; 99285; J0692; J1170; J2270; J2405

== ENCOUNTER 2019-05-26 15:33 | Inpatient (IN) | payer MEDICARE, SELFPAY ==
--- NOTE | ~2019-05-26 | US_ITS ---
EXAMINATION: US right upper quadrant, US renal BI DATE: 05/26/2019 16:10 INDICATION: Right upper quadrant abdominal pain. Elevated creatinine. Abnormal CT scan. TECHNIQUE: Multiple grayscale and Doppler ultrasound images of the right upper quadrant of the abdome n as well as the bilateral kidneys were obtained. COMPARISON: CT dated 05/26/2019 and 06/18/2017 FINDINGS: 3.1 x 2.3 x 3.7 cm bilobed anechoic cyst at the body of the pancreas. Liver has normal echogenicity a nd contour, with a smooth surface. 3.0 cm anechoic cyst at the inferior right hepatic lobe. There are couple additional possible 1 cm cyst with peripheral rim calcified location in the lateral left hepa tic lobe. No intrahepatic biliary duct dilation suspected. Portal venous flow was seen in the hepatop etal, normal direction and has normal Doppler waveform. The gallbladder is normal in appearance. Shad owing gallstones in the dependent gallbladder. The common bile duct measures 7 mm, which is within no rmal limits for age. Sonographic Mirza sign was reported as negative by the clinical instructor. The visuali zed proximal inferior vena cava is normal. There is normal renal contour bilaterally. The right kidney measures 9.9 x 4.2 x 4.4 cm and the left 10.7 x 4.4 x 4.4 cm. There are no focal renal lesions identified. There is diffuse mildly increased r enal cortical echogenicity which is isoechoic to the liver consistent with medical renal disease. The re is no hydronephrosis. Bladder is nonvisualized, likely decompressed. IMPRESSION: 1. Cholelithiasis. 2. Mild increased bilateral renal cortical echogenicity consistent with medical renal disease. No hyd ronephrosis. 3. Hepatic and pancreatic cysts. Reviewed, dictated and finalized at location A. E RECLAMATION TENDER IMPRESSION: 1. Cholelithiasis. 2. Mild increased bilateral renal cortical echogenicity consistent with medical renal disease. No hydronephrosis. 3. Hepatic and pancreatic cysts.
--- NOTE | ~2019-05-26 | XR_ITS ---
EXAMINATION: XR abdomen obstructive series DATE: 05/30/2019 13:22 INDICATION: Nausea and vomiting TECHNIQUE: Upright and supine views of the abdomen were obtained. COMPARISON: CT, 05/26/2019 FINDINGS: There is no free intraperitoneal gas or evidence of bowel obstruction. The bowel gas patter n is normal. The visualized lung bases are clear. There is calcification of the mitral annulus. Ortho pedic hardware is noted in the hips. IMPRESSION: 1. Nonobstructive bowel gas pattern. Reviewed, dictated and finalized at location A. H SERVICES LIBRARIAN
--- NOTE | ~2019-05-26 | US_ITS ---
EXAMINATION: US venous doppler [facility] EXAM DATE: 05/26/2019 11:54 INDICATION: DVT. TECHNIQUE: Multiple grayscale, color flow and Doppler images of the lower extremity deep venous syste ms bilaterally were obtained and reviewed. Comparison is made to prior examination from 12/20/2008. FINDINGS: Right side: The right common femoral, femoral and profunda veins demonstrate normal color flow, respi ratory variation, augmentation and compressibility. Compressibility, color flow confirmed within the right popliteal, posterior tibial, peroneal, and greater saphenous veins. Left side: The left common femoral, femoral and profunda veins demonstrate normal color flow, respira tory variation, augmentation and compressibility. Compressibility, color flow confirmed within the l eft popliteal, posterior tibial, peroneal, and greater saphenous veins. IMPRESSION: 1. No lower extremity deep venous thrombosis bilaterally. Reviewed, dictated and finalized at location A. TH CARE MARKETING SPECIALIST
--- NOTE | ~2019-05-26 | NM_ITS ---
HEPATOBILIARY SCAN Procedure: Hepatobiliary scan performed following IV administration 4.8 mCi Tc 99m Choletec. At 60 m inutes 1.5 mcg CCK administered IV for evaluation of gallbladder ejection fraction. Indication:Right upper quadrant abdominal pain Comparison: CT and ultrasound dated 05/26/2019 Findings: There is normal radiotracer uptake in the liver parenchyma with prompt excretion into the b iliary tract. Gallbladder visualized at 30 minutes. Small bowel visualized at 35 minutes. Normal g allbladder ejection fraction measures 41% (normal 10-90%, but most patients with gallbladder dysfunct ion have GBEF of less than 35%) Impression: 1: Normal hepatobiliary scan. Reviewed, dictated and finalized at location A. METAL MIXER OPERATOR HELPER Impression: 1: Normal hepatobiliary scan.
--- NOTE | 2019-05-26 07:44 | ADMGEN ---
This patient, Grecia Patterson, was admitted to Medical Room 345-01. Patient/family oriented to hospital policies and general routines including ID bracelet, bed and alarms, visiting hours, pain management, procedures, bathroom and other care routines, personal items, smoking policy, room service/diet, and visiting hours. Valuables list has been completed. Information on how to activate the Rapid Response Team has been discussed. Patient/Family are encouraged to report perceived risks to care and to ask questions if they do not understand what they are told or what they should do.
[2019-05-26 07:46] VITALS: BMI 28.3
[2019-05-26 08:05] VITALS: PULSE 76; RESP 18; O2SAT 97
[2019-05-26 10:57] VITALS: BMI 28.3
--- NOTE | 2019-05-26 11:49 | WPDINFPN2 ---
Progress Note: A&P Assessment and Plan (1) Diverticulitis of large intestine with perforation and abscess with bleeding: Code(s): K57.21 - Diverticulitis of large intestine with perforation and abscess with bleeding Status: Acute Assessment and Plan: 1. Diverticular abscesses, not worse by CT 2. Multiple allergies 3. Lumbar back pain (her CC, NOT flank pain). REC Aztreonam and metronidazole #1 resumed. She has no leukocytosis nor fever, and I am not convinced that her new back pain is due her abscesses. Subjective Date/time seen: 05/26/19 11:49 Objective Data Meds/Results Medications: Active Medications Generic Name Dose Route Start Last Admin Trade Name Freq PRN Reason Stop Dose Admin Hydromorphone HCl 0.5 mg 05/26/19 10:48 Dilaudid Inj IV PUSH Q8H PRN Pain Rated 7-10 Metronidazole 500 mg in 100 mls @ 100 mls/hr 05/26/19 11:00 Flagyl 500 Mg/Iso Soln 100 Ml IVPB 05/26/19 11:59 ONCE ONE Aztreonam 1 gm/ Dextrose 50 mls @ 100 mls/hr 05/26/19 14:00 IVPB Q8HR LYLE Dextrose/Sodium Chloride 1,000 mls @ 50 mls/hr 05/26/19 10:50 Dextrose 5% Sodium Chloride 0.9% IV CONT .Q20H LYLE Pantoprazole Sodium 40 mg 05/27/19 09:00 Protonix Iv IV PUSH QAM LYLE
[2019-05-26] MEDS: metroNIDAZOLE 500 MG/ISO 100ML 500 MG/100 ML BAG 100 MG IVPB (11:57)
--- NOTE | 2019-05-26 12:57 | CONS_ITS ---
DATE OF CONSULTATION: REASON FOR CONSULTATION: Diverticular abscesses. HISTORY OF PRESENT ILLNESS: The patient is a 78-year-old female who is here in the hospital until 3 days before admission with diverticulitis and abscesses. She was given 10 days of aztreonam and metronidazole and had full resolution in abdominal pain. Two days before admission, she had 2 normal bowel movements. On the day before admission, she had 2 bowel movements, which were very small in quantity and soft, but not loose. Around midnight on the and , she developed new onset of back pain. This is in the right paralumbar area. There is no radiation. She had no abdominal pain, flank pain, nausea, vomiting, bleeding, anorexia, fever, rigors, or sweats. She attempted to walk off the pain without relief. She called her daughter. She was taken to an outside emergency room and transferred here early this morning. She has been resumed on aztreonam and metronidazole. A morphine injection caused dizziness for her, but an alternative analgesic has improved her pain. There are no aggravating factors at home that she noted though she had the pain only for about half an hour before an ambulance was called. ALLERGIES: CIPROFLOXACIN, CEPHALEXIN, AND PENICILLINS WITH THE PREVIOUSLY NOTED REACTIONS. HABITS: No tobacco. No alcohol. No immunosuppressants on home medication list. MEDICATIONS: Reviewed in full. PAST MEDICAL HISTORY: As detailed on her previous chart including breast cancer, stage IV chronic renal insufficiency, known diverticulosis, gout, hyperlipidemia, hypertension, hip surgery, breast lumpectomy, and right total hip arthroplasty. FAMILY HISTORY: Heart disease, hypertension, prostate cancer, breast cancer, and diabetes. SOCIAL HISTORY: Lives with herself, daughters nearby. REVIEW OF SYSTEMS: A 14-point review was otherwise negative. PHYSICAL EXAMINATION: GENERAL: This is an elderly female, appears her actual age, in no distress. VITAL SIGNS: Afebrile since arrival. 137/68, 71, 20, 98%. SKIN: Warm and dry. EENT: The conjunctivae appear clear. The oropharynx, oral mucosa well hydrated. NECK: No meningismus. No masses. No adenopathy. LUNGS: Clear to auscultation. BACK: She has no tenderness. No skin changes in the lumbar area. There is no erythema. The spine is nontender. She has no CVAT. CARDIAC: Regular rate and rhythm with a grade 2/6 harsh early to mid systolic murmur in the right upper and left upper sternal borders. No heaves. ABDOMEN: Mildly distended. Normal bowel sounds. Tender without guarding in the right mid abdomen, not elsewhere. She has no flank tenderness. No referred tenderness. EXTREMITIES: 2+ edema of lower extremities. None in the arms. No cyanosis. No clubbing. NEUROLOGIC: She is awake, alert, oriented, appropriate. IMAGING DATA: Abdomen and pelvic CT done at outside hospital or here revealed stable fluid collections in the sigmoid soft tissues and chronic findings otherwise. No new finding since 05/15/2019. Chest x-ray atelectasis and improved vascular congestion. LABORATORY DATA: Previous blood cultures, no growth final. These have been repeated. White blood cell count consistently normal. Hemoglobin 8.6, which is stable. Platelets are 98,000, which is also stable. Differential shows moderate left shift. Sodium 133, BUN 56, creatinine 3.3, which is slightly higher. Magnesium 1.6. Transaminases low to normal. BNP 1200. Albumin 1.5. Urinalysis, multiple abnormalities, which do not suggest infection. ASSESSMENT: 1. Lumbar back pain. Her chief complaint not clearly related to her diverticulitis. However, she does have some right mid abdominal tenderness. 2. Diverticular abscesses, stable by CT appearanc
[2019-05-26] MEDS: DEXTROSE 5%/0.9% SOD CHL 1,000 ML 50 ML IV CONT (13:04)
--- NOTE | 2019-05-26 13:04 | WPDGICN ---
Assessment and Plan Additional Plan This is a 78-year-old white female patient I am asked to see because of history of diverticulitis. Patient recently admitted to the hospital was found to have perforated sigmoid diverticulitis. Pericolonic abscesses were identified. She was placed on broad-spectrum antibiotic coverage and prompt improvement was noted. Surgery has followed her with anticipated outpatient follow-up she did was discharged from the hospital 3 days ago. Last evening began to have sudden onset of right flank and right side pain. She denies a fever. She has not had a bowel movement for 2 days. She denies any bleeding. Past medical history is significant for chronic kidney disease. She was identified as having a gastric ulcer by EGD at the time of last admissions within the last 2 weeks. Patient has a distant history of breast cancer. She has chronic anemia. She has gout. Family history noncontributory. Current medications include allopurinol, carvedilol, clonidine, Colace, hydralazine, on tool a cast, pantoprazole, Metamucil, simvastatin, She reports allergies to Cipro cephalosporins and penicillins. Family history noncontributory. Physical exam reveals her to be alert. Vital signs stable. HEENT exam unremarkable. Lungs are clear to auscultation and percussion. Heart is without murmur or extra sounds. Abdominal exam is very tender in the right upper quadrant right flank inside. Extremities reveal marked pedal edema. Laboratory test reveals elevated BNP. Hemoglobin 8.6 is stable. WBC is normal. LFTs are normal. Impression 1. Diverticulitis. With pericolonic abscesses. This appears unchanged or perhaps improved on CT scan obtained today. 2. Right flank inside pain. Etiology of this pain remains unclear. It does not appear to be related to diverticulitis. LFTs are currently normal. Plan is to check ultrasound the right upper quadrant and right kidney. 3. Pedal edema. Elevated BNP. Suggestive of congestive heart failure and fluid overload. Will be followed by primary care service. 4. Gastric ulcer. 5. Chronic kidney disease. Plan is for patient be maintained on proton pump inhibitor. Broad-spectrum antibiotics have been started for her diverticulitis and will be continued. Ultrasound of the right upper quadrant and kidney will be obtained. Primary care service to consider judicious diuresis. We will follow with you in the interim. GI Consult Note Consult date/time: 05/26/19 13:04 HPI: Grecia K Leonardo is a 78 year old female [facility] Past Medical History Medical History (Updated 05/27/19 @ 12:08 by Dori Lopez MD) Breast cancer Carcinoma in situ, status post lumpectomy and radiation therapy. Chronic anemia She is a patient of Dr. Telles at [place]. A bone marrow biopsy done about 5 years ago was reportedly unremarkable. Chronic kidney disease, stage 4 (severe) Baseline creatinine around 3.0. Diverticular disease Diverticulitis of colon with perforation Summer 2018, hospitalized at [place]. Diverticulosis of colon with hemorrhage Summer 2018. Gout Hyperlipidemia Hypertension Surgical History Surgical History Status post hip surgery Left hip screw. Status post right breast lumpectomy Status post right hip replacement Family History Family History Father End-stage renal disease needing dialysis Alzheimer's dementia Acute myocardial infarction Hypertension Prostate carcinoma Mother Breast cancer Grandparent Diabetes mellitus Grandparent Diabetes mellitus Social History Social History Social History: The patient lives alone in her own home in [place]. Her children live nearby. She designates her daughter's as her surrogate decision makers and she wishes to be a DNR/DNI. She is a lifelong nonsmoker and
--- NOTE | 2019-05-26 13:24 | PCNSR ---
On 05/26/19, the student,Guadalupe Martines, provided care and completed [facility] documentation on this patient. I have reviewed the student's documentation and agree with the findings.
[2019-05-26 13:26] LABS: Basophils Percent Auto 0.2 % (0.2-1.2); Eosinophils Percent Auto 0.3 % (0-4.4); Hematocrit 27.4 % (37.0-47.0); Hemoglobin 8.6 g/dL (12.0-15.0); Immature Granulocyte Absolute 0.03 K/mm3 (0.00-0.031); Immature Granulocyte Percent A 0.3 % (0-0.5); Immature Platelet Fraction Pct 6.2 % (0.9-11.2); Lymphocytes Absolute Auto 0.45 K/mm3 (0.9-3.2); Lymphocytes Percent Auto 4.2 % (18.3-44.2); Mean Corpuscular HGB Conc 31.4 g/dl (32-36); Mean Corpuscular Volume 98.9 fl (80-100); Mean Platelet Volume 11.7 fl (7.4-10.4); Monocytes Absolute Auto 0.6 K/mm3 (0.1-0.6); Monocytes Percent Auto 5.5 % (2.6-8.5); Neutrophils Absolute Auto 9.6 K/mm3 (1.3-6.7); Neutrophils Percent Auto 89.5 % (45.5-73.1); Platelet Count Result 95 k/mm3 (150-375); Red Blood Count 2.77 M/mm3 (4.2-5.4); Red Cell Distribution Width 16.5 % (11.5-14.5); White Blood Count 10.7 K/mm3 (4.5-10.0)
--- NOTE | 2019-05-26 13:34 | PM.CNGS ---
Assessment and Plan Assessment and plan (1) Diverticulitis of large intestine with perforation and abscess with bleeding: Code(s): K57.21 - Diverticulitis of large intestine with perforation and abscess with bleeding Status: Acute Assessment and Plan: CT scan from 05/15/19 and 05/26/19 reviewed and compared with both Dr. Shaffer and the Radiologist. This was discussed in detail with the patient and her daughters. It appears that the abscess from the initial CT scan that was sitting between the left psoas muscle and the sigmoid colon on the left has improved or decreased in size. There is another area of concern in the right lower abdomen that appears to be a gas and fluid-filled collection. The issue is that the patient has poor kidney function and is unable to receive IV contrast, therefore the CT scan without IV contrast makes it difficult to decipher if this area of fluid and gas is all an abscess collection or if part of this also contains a segment of bowel. If this is a larger sized abscess and none of this collection is bowel, then it might be amenable to percutaneous drainage. If there is bowel in this area of concern and it is a smaller abscess, then this would not be amenable to percutaneous drainage. One option would be to give the patient oral contrast tomorrow and repeat a CT scan of the abdomen and pelvis 2-3 hours after giving oral contrast to help the Radiologist decipher bowel from the abscess collection. For now, we would agree with continuing the IV antibiotics per ID with bowel rest and analgesics, and see how the patient clinically responds. The cause for her right-sided flank pain is unclear and it is possible it may not be related to the persistent intra-abdominal abscesses. Although, the patient does have significant tenderness in her right lower quadrant. I do agree with additional testing to rule out other causes of the right flank pain. Another consideration, is that on the CT scan she appeared constipated with a significant amount of stool in the colon. We will attempt to stimulate her bowels to see if she improves. This being said, she will likely ultimately need a sigmoidectomy to prevent further issues or recurrent problems, but we will continue with current treatment for now to see how she progresses. Proceeding with a colon resection while there is still a lot of inflammation increases her risk for a colostomy and it would potentially be a more difficult surgery rather than giving it time and doing this electively. Although, if she does not improve, then this may need to be done sooner. Thank you for allowing me to see the patient in consultation and we will continue to follow along with you. (2) Chronic kidney disease, stage 4 (severe): Code(s): N18.4 - Chronic kidney disease, stage 4 (severe) Status: Chronic (3) Hypertension: Code(s): I10 - Essential (primary) hypertension Status: Acute (4) Chronic anemia: Code(s): D64.9 - Anemia, unspecified Status: Acute (5) Hyponatremia: Code(s): E87.1 - Hypo-osmolality and hyponatremia Status: Acute Additional Plan Discussed the patient's case and plan of care with Dr. Shaffer and Dr. Lerner today. History of Present Illness Consult details Consult date: 05/26/19 Reason for consult: other (Sigmoid diverticulitis with abscesses) Requesting physician: Dori Lopez MD Narrative: This is a 78-year-old female with a history of chronic kidney disease, hypertension, anemia, and thrombocytopenia, who were were asked to see due to diverticular abscesses. The patient was initially seen by our service during her last hospitalization on 05/16/19 after she had presented to the hospital with profound anemia and GI bleed. She did not have any significant abdominal pain. She underwent an EGD and Colonoscopy by Dr. Blas. During the upper endoscopy, she was found to have a gastric ulcer. During the colonoscopy, she was found to have
[2019-05-26 13:35] LABS: Blood Urea Nitrogen 51 mg/dL (7-17); Calcium 8.8 mg/dL (8.4-10.2); Carbon Dioxide 18 mmol/L (22-30); Chloride 97 mmol/L (98-107); Estimated CRCL calculation 13 ml/min; Estimated Glomerular Filt Rate 15; Glucose 81 mg/dL (65-105); Potassium 4.2 mmol/L (3.4-5.0); Sodium 131 mmol/L (137-145)
[2019-05-26 14:00] VITALS: BP 126/72; PULSE 72; RESP 16; TEMP 36.6; O2SAT 97
--- NOTE | 2019-05-26 14:36 | PM.IMHP ---
H&P: HPI History of Present Illness Chief complaint: diverticulitis Narrative: Grecia Patterson is a 78 year old female, transfered from [facility], pt admitted with severe pain in her left upper abdomen. Pt did not notice any bleeding from her stool. Pt denies any nausea or vomiting, pt denies fever or chills. Pt had eaten her supper last night, severe abdominal pain came on around midnight. Pt was recently in the hospital 3 days ago for diveticuilitis and was treated with IV metrondiazole and aztreonam. Pt had egd and colonscopy at that time showing - Sigmoid diverticulitis and Gastric ulcer. Pt had abdominal ct in [facility] ED this morning which showed- Sigmoid diverticulitis and multiple diverticular abscesses, hepatic cysts and kidney cysts. Pt also has history of chronic kidney disease stage 4, chronic anemia with thrombocytopenia, hypertension, and hyperlipidemia.Pt sees DR Telles hematology for thrombocytopenia. Pt saw ID, GI, surgery last visit. Review of Systems Review of Systems: All systems reviewed & are unremarkable except as noted in HPI and below Constitutional: Constitutional: Reports fatigue, Denies fever(s), Reports lethargy and Reports malaise Cardiovascular: Cardiovascular: Denies no additional cardiovascular complaints Respiratory: Respiratory: Denies no additional respiratory complaints Gastrointestinal: Gastrointestinal: Reports abdominal pain Comments: Right upper quadrant Genitourinary: Genitourinary: Denies no additional female genitourinary complaints Musculoskeletal: Musculoskeletal: Reports muscle weakness Psychiatric: Psychiatric: Reports anxiety PMFSH Past Medical History Medical History Breast cancer Carcinoma in situ, status post lumpectomy and radiation therapy. Chronic anemia She is a patient of Dr. Telles at [place]. A bone marrow biopsy done about 5 years ago was reportedly unremarkable. Chronic kidney disease, stage 4 (severe) Baseline creatinine around 3.0. Diverticular disease Diverticulitis of colon with perforation Summer 2018, hospitalized at [place]. Diverticulosis of colon with hemorrhage Summer 2018. Gout Hyperlipidemia Hypertension Surgical History Surgical History Status post hip surgery Left hip screw. Status post right breast lumpectomy Status post right hip replacement Family History Family History Father End-stage renal disease needing dialysis Alzheimer's dementia Acute myocardial infarction Hypertension Prostate carcinoma Mother Breast cancer Grandparent Diabetes mellitus Grandparent Diabetes mellitus Social History Social History Social History: The patient lives alone in her own home in [place]. Her children live nearby. She designates her daughter's as her surrogate decision makers and she wishes to be a DNR/DNI. She is a lifelong nonsmoker and denies alcohol and drug abuse. Smoking status: Never smoker Second hand tobacco smoke exposure: Yes Alcohol intake: current Drinks per week: 7 Substance use: never Gender identity (if verbalized by the patient): Female Spiritual care concerns: No Agree to blood products: Yes Meds Home Medications and Allergies Home Medications Medication Instructions Recorded Confirmed Type allopurinol 100 mg PO DAILY 05/13/19 05/26/19 History betamethasone, augmented 1 applic TOPICAL PRN 05/13/19 05/26/19 History carvedilol 25 mg PO BID 05/13/19 05/26/19 History cholecalciferol (vitamin D3) 1,000 unit PO DAILY 05/13/19 05/26/19 History [Vitamin D3] clonidine HCl 0.1 mg PO BID 05/13/19 05/26/19 History docusate calcium [Surfak] 240 mg PO DAILY 05/13/19 05/26/19 History fluticasone propionate [Flonase 1 spray INTRANASAL HS 05/13/19 05/26/19 History Allergy Relief] hydra
[2019-05-26] MEDS: AZTREONAM 1 GM in DEXTROSE 5% IN WATER 50 ML IVPB (14:49)
--- NOTE | 2019-05-26 14:55 | PM.CNNEP ---
Assessment and Plan Assessment and plan (1) Chronic kidney disease, stage 4 (severe): Code(s): N18.4 - Chronic kidney disease, stage 4 (severe) Status: Chronic Assessment and Plan: Patient has chronic kidney disease stage 4. Her creatinine seems to run at around 2.5-3. This is due to hypertension and vascular disease most likely. She has a mild rise in her creatinine. This morning is 3.3. Most likely this is due to infection and possibly dehydration. Will check urine electrolytes and eosinophils and a renal ultrasound. She is getting IV fluids. (2) Hypertension: Code(s): I10 - Essential (primary) hypertension Status: Acute Assessment and Plan: The patient has high blood pressure. Blood pressure has been under good control. He was a little high at last night probably from pain. Her blood pressure medicines are currently on hold. As she recover she will need these folded back in. (3) Diverticulitis of large intestine with perforation and abscess with bleeding: Code(s): K57.21 - Diverticulitis of large intestine with perforation and abscess with bleeding Status: Acute Assessment and Plan: The patient has evidence on CT of diverticulitis. She is on Aztreonam right now. (4) Hyponatremia: Code(s): E87.1 - Hypo-osmolality and hyponatremia Status: Acute Assessment and Plan: Sodium level is a little bit low. This is probably multifactorial but mostly due to her renal failure. Possibly the narcotics may have something to do with that as well. She was on no diuretics or SSRIs. (5) Chronic anemia: Code(s): D64.9 - Anemia, unspecified Status: Acute Assessment and Plan: The patient has anemia. This is most likely multifactorial. She has renal failure which of course can do this because of the EPO deficiency. She is infected so has an element of inflammation causing this. She may be losing a little bit of blood from her dad diverticuli. Iron deficiency is always a possibility however she has an active infection so cannot give IV iron right now. I will put her on EPO. History of Present Illness Reason for Consult Consult date: 05/26/19 Chief Complaint Chief complaint: diverticulitis History of Present Illness Narrative: Grecia is a very pleasant lady with multiple medical problems including chronic kidney disease stage 4, diverticulosis, gout, hyperlipidemia, hypertension, anemia, breast cancer. The patient sees Dr. Chin in the office. Her baseline creatinine is around 2.5-3.0. The patient came into the hospital because of abdominal pain. She says the pain actually starts in her right flank and then radiates around the front. She says the pain started last night around 730 and she went to the ER last night in [place]. There and they did a CAT scan which showed sigmoid diverticulitis and multiple diverticular abscesses, hepatic cysts, and kidney cysts. The patient was given antibiotics and IV fluids and she was sent over to [facility] when a bed opened up. The patient was in [facility] earlier this month with diverticulitis. She was treated with antibiotics and went home. When she got [place] was found that her creatinine was higher than baseline so renal consultation was requested. She denies any bloody urine, foamy urine, kidney stones, or bladder infections. She has no pain with urination. She has not taken any nonsteroidal anti-inflammatory agents. Review of Systems Constitutional: Constitutional: Reports no additional constitutional complaints Eyes: Eyes: Reports no additional eye complaints ENT: Reports system reviewed and no additional complaints, except as documented Cardiovascular: Cardiovascular: Reports no additional cardiovascular complaints Respiratory: Respiratory: Reports no additional respiratory complaints Gastrointestinal: Gastrointestinal: Reports no additional gastrointestinal
[2019-05-26 15:40] LABS: Creatine Kinase < 20 U/L (30-135)
[2019-05-26 17:01] LABS: Iron 28 ug/dL (37-170)
[2019-05-26 17:19] LABS: Add Urine Microscopic? YES; Appearance Urine Clear (Clear); Bilirubin Urine Negative (Negative); Blood Urine Negative (Negative); Color Urine Yellow (Yellow); Glucose Urine UA Negative (Negative); Ketones Urine Trace mg/dL (Negative); Leukocyte Esterase Ur Trace LEU/UL (Negative); Nitrate Urine Negative (Negative); Protein Urine 1+ mg/dL (Negative); RBC Urine 0-2 /hpf (0-2); Specific Grav Ur 1.014 (1.001-1.035); Squamous Epithelial Cell Urine Few /hpf (Few); Urobilinogen Urine Negative mg/dL (<2.0)
[2019-05-26 17:20] LABS: Creatinine Urine 69.5 mg/dL; Total Protein Urine Random 29 mg/dL
[2019-05-26 17:38] LABS: Sodium Urine Random 49 meq/L
[2019-05-26 17:39] LABS: Percent Iron Saturation 23 % (20-50)
[2019-05-26] MEDS: polyethylene glycoL 3350 17 GM POWD.PACK PO (17:58)
[2019-05-26 20:54] VITALS: BP 133/64; PULSE 86; RESP 16; TEMP 36.5; O2SAT 98
[2019-05-26] MEDS: EPOETIN ALFA 10,000 UNITS/ML VIAL 10000 UNITS SUB-Q (21:02)
[2019-05-26 21:04] VITALS: PULSE 86; RESP 16; O2SAT 98
[2019-05-27] MEDS: AZTREONAM 1 GM in DEXTROSE 5% IN WATER 50 ML IVPB ×2 (02:00→13:02)
[2019-05-27 05:51] VITALS: BP 124/68; PULSE 83; RESP 15; TEMP 36.3; O2SAT 97
[2019-05-27 05:52] LABS: Basophils Percent Auto 0.1 % (0.2-1.2); Eosinophils Percent Auto 0.4 % (0-4.4); Hematocrit 24.5 % (37.0-47.0); Hemoglobin 7.7 g/dL (12.0-15.0); Immature Granulocyte Absolute 0.03 K/mm3 (0.00-0.031); Immature Granulocyte Percent A 0.4 % (0-0.5); Lymphocytes Percent Auto 7.1 % (18.3-44.2); Mean Corpuscular HGB Conc 31.4 g/dl (32-36); Mean Corpuscular Hemoglobin 30.9 pg (26-34); Mean Corpuscular Volume 98.4 fl (80-100); Mean Platelet Volume 11.8 fl (7.4-10.4); Monocytes Absolute Auto 0.5 K/mm3 (0.1-0.6); Neutrophils Absolute Auto 5.9 K/mm3 (1.3-6.7); Platelet Count Result 88 k/mm3 (150-375); Red Blood Count 2.49 M/mm3 (4.2-5.4); Red Cell Distribution Width 16.6 % (11.5-14.5)
[2019-05-27 06:01] LABS: Albumin Level 2.2 g/dL (3.5-5.1); Blood Urea Nitrogen 49 mg/dL (7-17); Calcium 8.2 mg/dL (8.4-10.2); Carbon Dioxide 21 mmol/L (22-30); Chloride 102 mmol/L (98-107); Estimated CRCL calculation 14 ml/min; Estimated Glomerular Filt Rate 16; Glucose 95 mg/dL (65-105); Potassium 4.6 mmol/L (3.4-5.0); Sodium 131 mmol/L (137-145)
[2019-05-27] MEDS: DEXTROSE 5%/0.9% SOD CHL 1,000 ML 50 ML IV CONT (08:20)
[2019-05-27] MEDS: polyethylene glycoL 3350 17 GM POWD.PACK PO (08:20)
[2019-05-27] MEDS: PANTOPRAZOLE SODIUM IV 40 MG VIAL IV PUSH (08:20)
--- NOTE | 2019-05-27 09:41 | WPDGIPROGNO ---
Progress Note: A&P Additional Plan Patient reports right side and right upper quadrant pain has gone away. She is hungry. She denies abdominal pain in the lower abdomen at the present time. Bowel habits are normal. Physical exam reveals her to be afebrile. HEENT exam she is anicteric. Lungs are clear to auscultation. Heart is without murmur. Abdomen is soft and nontender. Labs reveal WBC 7.0, hemoglobin 7.7, hematocrit 24.5, MCV 94. BUN 49, creatinine 2.9, Ultrasound of the right upper quadrant reveals gallstones. CT scan reveals sigmoid diverticulitis an abscesses that persist. These do not correlate with her recent pain. Impression 1. Right upper quadrant pain. Pain may actually be more on the flank and back. Gallstones identified by ultrasound may not be related to pain however. Surgical follow-up may need to be considered. Consider a HIDA scan. 2. Cholelithiasis. Identified by ultrasound. This is a consideration for etiology of her recent pain but not a certainty. 3. Diverticulitis with pericolonic abscesses. Continued antibiotic use is plan. Surgical follow-up anticipated. Eventual resection of sigmoid colon anticipated. 4. Thrombocytopenia. Followed by Hematology. The etiology unclear. 5. Gastric ulcer. Identified at last hospital stay by EGD. Patient now on proton pump inhibitor. This does not appear to correlate with her recent pain. Plan is to advance diet pain has resolved. Continue antibiotics for diverticulitis and abscesses. Surgical follow-up anticipated. Appreciate their insight as to cholelithiasis Subjective Date/time seen: 05/27/19 09:41 Objective Data Vital Signs Vital Signs: Vital Signs - 24 hr 05/26/19 14:00 05/26/19 20:54 05/26/19 21:04 Temperature 36.6 C 36.5 C Pulse Rate 72 86 86 Respiratory Rate 16 16 16 Blood Pressure 126/72 133/64 Pulse Oximetry 97 98 98 05/27/19 05:51 Temperature 36.3 C L Pulse Rate 83 Respiratory Rate 15 Blood Pressure 124/68 Pulse Oximetry 97 Intake/Output Intake/Output: Intake & Output 05/24/19 05/25/19 05/26/19 05/27/19 23:59 23:59 23:59 23:59 Intake Total 150 1000 Output Total 400 50 Balance -250 950 Meds/Results Medications: Active Medications Generic Name Dose Route Start Last Admin Trade Name Freq PRN Reason Stop Dose Admin Epoetin Nixon 10,000 units 05/26/19 17:10 05/26/19 21:02 Epogen SUB-Q 10,000 units MOWEFR LYLE Administration Hydromorphone HCl 0.5 mg 05/26/19 10:48 Dilaudid Inj IV PUSH Q8H PRN Pain Rated 7-10 Dextrose/Sodium Chloride 1,000 mls @ 50 mls/hr 05/26/19 10:50 05/27/19 08:20 Dextrose 5% Sodium Chloride 0.9% IV CONT 50 mls/hr .Q20H LYLE Administration Aztreonam 1 gm/ Dextrose 50 mls @ 100 mls/hr 05/26/19 14:00 05/27/19 03:15 IVPB Infused Q12H LYLE Infusion Pantoprazole Sodium 40 mg 05/27/19 09:00 05/27/19 08:20 Protonix Iv IV PUSH 40 mg QAM LYLE Administration Polyethylene Glycol 17 gm 05/26/19 16:33 05/27/19 08:20 Miralax PO 17 gm QAM LYLE Administration Radiology Results: ITS Impressions Venous Doppler Study 05/26/19 11:58 IMPRESSION: 1. No lower extremity deep venous thrombosis bilaterally. Renal Ultrasound 05/26/19 16:19 IMPRESSION: 1. Cholelithiasis. 2. Mild increased bilateral renal cortical echogenicity consistent with medical renal disease. No hydronephrosis. 3. Hepatic and pancreatic cysts. Upper Quadrant Ultrasound 05/26/19 16:19 IMPRESSION: 1. Cholelithiasis. 2. Mild increased bilateral renal cortical echogenicity consistent with medical renal disease. No hydronephrosis. 3. Hepatic and pancreatic cysts. Labs Labs: Laboratory Results - last 24 hr 05/26/19 05/26/19 05/26/19 12:14 12:14 15:23 WBC 10.7 H RBC 2.77 L Hgb 8.6 L Hct 27.4 L MCV 98.9 MCH 31.0 MCHC 31.4 L RDW 16.5 H Plt Count 95 L MPV 11.7 H Immature Gran % (Auto) 0.3 Neut % (
--- NOTE | 2019-05-27 12:00 | PM.IMPN ---
Progress Note: A&P Assessment and Plan (1) Cystic kidney disease, unspecified: Code(s): Q61.9 - Cystic kidney disease, unspecified Status: Acute Assessment and Plan: As seen on CT abdomen- kidney cyst and hepatic cyst, pt has US of liver ordered to look at liver closely. HIDA ordered, GI rounding (2) Breast cancer: Code(s): C50.919 - Malignant neoplasm of unspecified site of unspecified female breast Status: Acute Assessment and Plan: History of breast cancer, currently pt has thrombocytopenia DR Telles SCD ordered for DVT prophylaxis (3) Edema: Code(s): R60.9 - Edema, unspecified Status: Acute Assessment and Plan: In bilateral legs, Venous doppler ordered to rule out DVTs, dopplers are negative, edema ongoing, stop iv fluids watch perpherial edema. (4) Diverticulitis of large intestine with perforation and abscess with bleeding: Code(s): K57.21 - Diverticulitis of large intestine with perforation and abscess with bleeding Status: Acute Assessment and Plan: Pt started on IV metrondiazole and IV aztreonam, Bc are pending. I consulted DR oconnell ID, for further recommendations, pt may need abscesses drained by interventional radiology V bowel surgery. Gi and surgery rounding, DR Torres to see patient today. (5) Chronic kidney disease, stage 4 (severe): Code(s): N18.4 - Chronic kidney disease, stage 4 (severe) Status: Chronic Assessment and Plan: Creat increased from 2 to 3 this admission, DR Hernandez is rounding, kidney cysts coming up on CT scan from [facility] (6) Hyponatremia: Code(s): E87.1 - Hypo-osmolality and hyponatremia Status: Acute Assessment and Plan: Na is low, 131, fluids started as pt is NPO accept for Iv fluids presently, awaiting surgery and GI consultation, Stop fluids transition to low fiber. Continue to watch sodium levels (7) Hypertension: Code(s): I10 - Essential (primary) hypertension Status: Chronic Assessment and Plan: Chronic and stable (8) Gastric ulcer: Code(s): K25.9 - Gastric ulcer, unspecified as acute or chronic, without hemorrhage or perforation Status: Acute Assessment and Plan: From recent EGD continue protonix in the hospital. (9) Chronic anemia: Code(s): D64.9 - Anemia, unspecified Status: Acute Assessment and Plan: Hb is 7.7. Anaemia of chronic disease continue to watch, pt may need epogen shot while in hospital.Pt has history of CKD. Subjective Date/time seen: 05/27/19 12:00 Interval history: 78 year old female, transfered from [facility], pt admitted with severe pain in her left upper abdomen. Pt did not notice any bleeding from her stool. Pt denies any nausea or vomiting, pt denies fever or chills. Pt had eaten her supper last night, severe abdominal pain came on around midnight. Pt going down for HIDA scan today. Pt is currently being treated for diverticulitis with abscesses. Pt also has history of chronic kidney disease stage 4, chronic anemia with thrombocytopenia, hypertension, and hyperlipidemia, kidney and hepatic cysts. Mentions her left upper abdominal pain going to her back has stopped. Denies any pain today. Pt feels better, feels hungry wants to eat. Review of Systems Review of Systems: All systems reviewed & are unremarkable except as noted in HPI and below Constitutional: Constitutional: Reports fatigue, Denies fever(s), Reports lethargy and Reports malaise Cardiovascular: Cardiovascular: Denies no additional cardiovascular complaints Respiratory: Respiratory: Denies no additional respiratory complaints Gastrointestinal: Gastrointestinal: Denies abdominal pain Genitourinary: Genitourinary: Denies no additional female genitourinary complaints Musculoskeletal: Musculoskeletal: Reports muscle weakness Comments: No lumbar pain Integumentary/Breasts: Comments: Moderate edema of legs Psychiatric
--- NOTE | 2019-05-27 12:10 | PM.PNNEP ---
Progress Note: A&P Assessment and Plan (1) Chronic kidney disease, stage 4 (severe): Code(s): N18.4 - Chronic kidney disease, stage 4 (severe) Status: Chronic Assessment and Plan: Patient has chronic kidney disease stage 4. Her creatinine seems to run at around 2.5-3. This is due to hypertension and vascular disease most likely. Her creatinine rashel to 3.3. After antibiotics and some IV fluids it is down to 2.9. This is about where her creatinine is chronically. (2) Hypertension: Code(s): I10 - Essential (primary) hypertension Status: Chronic Assessment and Plan: The patient has high blood pressure. Her systolic is running between 120 and 140. Blood pressure medications at the moment We can full these in as we go. (3) Diverticulitis of large intestine with perforation and abscess with bleeding: Code(s): K57.21 - Diverticulitis of large intestine with perforation and abscess with bleeding Status: Acute Assessment and Plan: The patient has evidence on CT of diverticulitis. She is on Aztreonam right now. (4) Hyponatremia: Code(s): E87.1 - Hypo-osmolality and hyponatremia Status: Acute Assessment and Plan: Sodium level is a little bit low. This is probably multifactorial but mostly due to her renal failure. Will keep an eye on this. (5) Chronic anemia: Code(s): D64.9 - Anemia, unspecified Status: Acute Assessment and Plan: The patient has anemia. This is most likely multifactorial: CKD, inflammation, GI blood loss? She is getting EPO Subjective Date/time seen: 05/27/19 12:10 Interval history: The patient is feeling better. She is a little bit weak and needs help getting to the chair. Belly feels better. She is eager to eat to see if she can tolerate it. Review of Systems Cardiovascular: Cardiovascular: Reports no additional cardiovascular complaints Respiratory: Respiratory: Reports no additional respiratory complaints Gastrointestinal: Gastrointestinal: Reports no additional gastrointestinal complaints Genitourinary: Genitourinary: Reports no additional female genitourinary complaints Exam Narrative: Exam Narrative: Well developed well-nourished in no acute distress Lungs clear Heart regular without rub Abdomen bowel sounds positive soft nontender Extremities no edema Skin no rash Objective Data Vital Signs Vital Signs: Vital Signs - 24 hr 05/26/19 14:00 05/26/19 20:54 05/26/19 21:04 Temperature 36.6 C 36.5 C Pulse Rate 72 86 86 Respiratory Rate 16 16 16 Blood Pressure 126/72 133/64 Pulse Oximetry 97 98 98 05/27/19 05:51 Temperature 36.3 C L Pulse Rate 83 Respiratory Rate 15 Blood Pressure 124/68 Pulse Oximetry 97 Intake/Output Intake/Output: Intake & Output 05/24/19 05/25/19 05/26/19 05/27/19 23:59 23:59 23:59 23:59 Intake Total 150 1000 Output Total 400 200 Balance -250 800 Meds/Results Medications: Active Medications Generic Name Dose Route Start Last Admin Trade Name Freq PRN Reason Stop Dose Admin Epoetin Nixon 10,000 units 05/26/19 17:10 05/26/19 21:02 Epogen SUB-Q 10,000 units MOWEFR LYLE Administration Hydromorphone HCl 0.5 mg 05/26/19 10:48 Dilaudid Inj IV PUSH Q8H PRN Pain Rated 7-10 Dextrose/Sodium Chloride 1,000 mls @ 50 mls/hr 05/26/19 10:50 05/27/19 08:20 Dextrose 5% Sodium Chloride 0.9% IV CONT 50 mls/hr .Q20H LYLE Administration Aztreonam 1 gm/ Dextrose 50 mls @ 100 mls/hr 05/26/19 14:00 05/27/19 03:15 IVPB Infused Q12H LYLE Infusion Pantoprazole Sodium 40 mg 05/27/19 09:00 05/27/19 08:20 Protonix Iv IV PUSH 40 mg QAM LYLE Administration Polyethylene Glycol 17 gm 05/26/19 16:33 05/27/19 08:20 Miralax PO 17 gm QAM LYLE Administration Radiology Results: ITS Impressions Venous Doppler Study 05/26/19 11:58 IMPRESSION: 1. No lower extremity deep ve
--- NOTE | 2019-05-27 13:27 | WPDINFPN2 ---
Progress Note: A&P Assessment and Plan (1) Diverticulitis of large intestine with perforation and abscess with bleeding: Code(s): K57.21 - Diverticulitis of large intestine with perforation and abscess with bleeding Status: Acute Assessment and Plan: 1. Diverticular abscesses, not worse by CT 2. Multiple allergies 3. Lumbar back pain (her CC, NOT flank pain), I do not think that this is due to her diverticulitis REC Aztreonam and metronidazole #2 resumed. She has no leukocytosis nor fever. ReCT scheduled. Subjective Date/time seen: 05/27/19 13:27 Interval history: back pain R lumbar is gone. No flank pain. No RUQ pain. + appetite Exam Narrative: Exam Narrative: afebrile Const: General: no acute distress Eyes: General: appearance normal, both eyes and all related structures Sclera: sclerae normal Resp: Effort & Inspection: normal respiratory effort Auscultation: clear to auscultation bilaterally Cardio: Rate: regular rate Rhythm: regular rhythm Heart sounds: no gallops and Murmur heart sound present GI: Inspection: non-distended GI Palp: Yes Soft to palpation, No Tenderness to palpation present (GI) and No Guarding due to palpation present (GI) Auscultation: normal bowel sounds Objective Data Vital Signs Vital Signs: Vital Signs - 24 hr 05/26/19 14:00 05/26/19 20:54 05/26/19 21:04 Temperature 36.6 C 36.5 C Pulse Rate 72 86 86 Respiratory Rate 16 16 16 Blood Pressure 126/72 133/64 Pulse Oximetry 97 98 98 05/27/19 05:51 Temperature 36.3 C L Pulse Rate 83 Respiratory Rate 15 Blood Pressure 124/68 Pulse Oximetry 97 Intake/Output Intake/Output: Intake & Output 05/24/19 05/25/19 05/26/19 05/27/19 23:59 23:59 23:59 23:59 Intake Total 150 1000 Output Total 400 200 Balance -250 800 Meds/Results Medications: Active Medications Generic Name Dose Route Start Last Admin Trade Name Freq PRN Reason Stop Dose Admin Epoetin Nixon 10,000 units 05/26/19 17:10 05/26/19 21:02 Epogen SUB-Q 10,000 units MOWEFR LYLE Administration Hydromorphone HCl 0.5 mg 05/26/19 10:48 Dilaudid Inj IV PUSH Q8H PRN Pain Rated 7-10 Dextrose/Sodium Chloride 1,000 mls @ 50 mls/hr 05/26/19 10:50 05/27/19 12:55 Dextrose 5% Sodium Chloride 0.9% IV CONT 50 mls/hr .Q20H LYLE Infusion Aztreonam 1 gm/ Dextrose 50 mls @ 100 mls/hr 05/26/19 14:00 05/27/19 13:02 IVPB 100 mls/hr Q12H LYLE Administration Pantoprazole Sodium 40 mg 05/27/19 09:00 05/27/19 08:20 Protonix Iv IV PUSH 40 mg QAM LYLE Administration Polyethylene Glycol 17 gm 05/26/19 16:33 05/27/19 08:20 Miralax PO 17 gm QAM LYLE Administration Radiology Results: ITS Impressions Venous Doppler Study 05/26/19 11:58 IMPRESSION: 1. No lower extremity deep venous thrombosis bilaterally. Renal Ultrasound 05/26/19 16:19 IMPRESSION: 1. Cholelithiasis. 2. Mild increased bilateral renal cortical echogenicity consistent with medical renal disease. No hydronephrosis. 3. Hepatic and pancreatic cysts. Upper Quadrant Ultrasound 05/26/19 16:19 IMPRESSION: 1. Cholelithiasis. 2. Mild increased bilateral renal cortical echogenicity consistent with medical renal disease. No hydronephrosis. 3. Hepatic and pancreatic cysts. Labs Labs: Laboratory Results - last 24 hr 05/26/19 05/26/19 05/26/19 12:14 12:14 15:23 WBC 10.7 H RBC 2.77 L Hgb 8.6 L Hct 27.4 L MCV 98.9 MCH 31.0 MCHC 31.4 L RDW 16.5 H Plt Count 95 L MPV 11.7 H Immature Gran % (Auto) 0.3 Neut % (Auto) 89.5 H Lymph % (Auto) 4.2 L [place] % (Auto) 5.5 Eos % (Auto) 0.3 Baso % (Auto) 0.2 Lymph # (Auto) 0.45 L [place] # (Auto) 0.6 Eos # (Auto) 0.0 Baso # (Auto) 0.0 Abs Immat Gran (auto) 0.03 Absolute Neuts (auto) 9.6 H Absolute Nucleated RBC 0.0 Nucleated RBC % 0.0 % Immature Plt Fraction 6.2 Sodium 131 L [place]
--- NOTE | 2019-05-27 14:06 | PM.PNGS ---
Progress Note: A&P Assessment and Plan (1) Diverticulitis of large intestine with perforation and abscess with bleeding: Code(s): K57.21 - Diverticulitis of large intestine with perforation and abscess with bleeding Status: Acute Assessment and Plan: Patient's bowels have moved and she seems to be clinically improving. Right flank pain resolved, but still an unclear etiology. WBC normal today. Continue IV antibiotics per ID. Patient will likely ultimately require a sigmoidectomy but we will try to continue current treatment and attempt to do this electively if her bowels continue to move and she tolerates a diet. Will continue MiraLax. May consider using oral contrast if we decide to get a repeat CT scan, since she is unable to have IV contrast. (2) Chronic kidney disease, stage 4 (severe): Code(s): N18.4 - Chronic kidney disease, stage 4 (severe) Status: Chronic (3) Hypertension: Code(s): I10 - Essential (primary) hypertension Status: Chronic (4) Chronic anemia: Code(s): D64.9 - Anemia, unspecified Status: Acute (5) Hyponatremia: Code(s): E87.1 - Hypo-osmolality and hyponatremia Status: Acute Additional Plan Discussed the patient's case and plan of care with Dr. Lerner today. Subjective Subjective Date/Time Seen: 05/27/19 10:20 Patient reports: no new complaints, feels better, flatus and bowel movement Interval history: Patient seen and examined. Reports feeling much better today. Denies any abdominal pain or flank pain at this time. Reports lots of flatus and a bowel movement overnight. States the bloating has nearly resolved. No other complaints at this time. Review of Systems Review of Systems: All systems reviewed & are unremarkable except as noted in HPI and below Exam Const: General: comfortable, no acute distress, alert and awake GI: Inspection: normal to inspection and non-distended GI Palp: Yes Soft to palpation (Softer today but still fullness to her lower abdomen), No Tenderness to palpation present (GI), No Guarding due to palpation present (GI), No Rigid due to palpation and No Rebound tenderness present Auscultation: normal bowel sounds Rectal Exam: deferred Skin: General skin exam: normal color Neuro: General: moves all extremities and no focal motor deficits Extrem: General: edema bilateral (lower extremities pitting edema) Psych: Mental Status: mental status grossly normal Attitude: cooperative Objective Data Vital Signs Vital Signs: Vital Signs - 24 hr 05/26/19 20:54 05/26/19 21:04 05/27/19 05:51 Temperature 36.5 C 36.3 C L Pulse Rate 86 86 83 Respiratory Rate 16 16 15 Blood Pressure 133/64 124/68 Pulse Oximetry 98 98 97 Intake/Output Intake/Output: Intake & Output 05/24/19 05/25/19 05/26/19 05/27/19 23:59 23:59 23:59 23:59 Intake Total 150 1050 Output Total 400 200 Balance -250 850 Meds/Results Medications: Active Medications Generic Name Dose Route Start Last Admin Trade Name Freq PRN Reason Stop Dose Admin Epoetin Nixon 10,000 units 05/26/19 17:10 05/26/19 21:02 Epogen SUB-Q 10,000 units MOWEFR LYLE Administration Hydromorphone HCl 0.5 mg 05/26/19 10:48 Dilaudid Inj IV PUSH Q8H PRN Pain Rated 7-10 Dextrose/Sodium Chloride 1,000 mls @ 50 mls/hr 05/26/19 10:50 05/27/19 12:55 Dextrose 5% Sodium Chloride 0.9% IV CONT 50 mls/hr .Q20H LYLE Infusion Aztreonam 1 gm/ Dextrose 50 mls @ 100 mls/hr 05/26/19 14:00 05/27/19 13:42 IVPB Infused Q12H LYLE Infusion Pantoprazole Sodium 40 mg 05/27/19 09:00 05/27/19 08:20 Protonix Iv IV PUSH 40 mg QAM LYLE Administration Polyethylene Glycol 17 gm 05/26/19 16:33 05/27/19 08:20 Miralax PO 17 gm QAM LYLE Administration Radiology Results: ITS Impressions Venous Doppler Study 05/26/19 11:58 IMPRESSION: 1. No lower extremity deep venous thrombosis bilaterally.
[2019-05-27 20:15] VITALS: PULSE 83; RESP 15; O2SAT 97
[2019-05-27 20:25] VITALS: BP 154/73; PULSE 86; RESP 16; TEMP 36.3; O2SAT 100
[2019-05-28] MEDS: AZTREONAM 1 GM in DEXTROSE 5% IN WATER 50 ML IVPB ×2 (02:30→13:59)
[2019-05-28 05:19] VITALS: BP 139/64; PULSE 83; RESP 16; TEMP 36.2; O2SAT 98
[2019-05-28 06:01] LABS: Hematocrit 26.3 % (37.0-47.0); Hemoglobin 8.2 g/dL (12.0-15.0); Immature Platelet Fraction Pct 5.3 % (0.9-11.2); Mean Corpuscular HGB Conc 31.2 g/dl (32-36); Mean Corpuscular Hemoglobin 30.7 pg (26-34); Mean Corpuscular Volume 98.5 fl (80-100); Mean Platelet Volume 11.7 fl (7.4-10.4); Platelet Count Result 73 k/mm3 (150-375); Red Blood Count 2.67 M/mm3 (4.2-5.4); Red Cell Distribution Width 16.6 % (11.5-14.5); White Blood Count 7.6 K/mm3 (4.5-10.0)
[2019-05-28 06:04] LABS: Blood Urea Nitrogen 42 mg/dL (7-17); Calcium 8.3 mg/dL (8.4-10.2); Carbon Dioxide 20 mmol/L (22-30); Chloride 101 mmol/L (98-107); Estimated CRCL calculation 14 ml/min; Estimated Glomerular Filt Rate 16; Glucose 95 mg/dL (65-105); Potassium 4.1 mmol/L (3.4-5.0); Sodium 131 mmol/L (137-145)
[2019-05-28] MEDS: DEXTROSE 5%/0.9% SOD CHL 1,000 ML 50 ML IV CONT (07:00)
[2019-05-28] MEDS: polyethylene glycoL 3350 17 GM POWD.PACK PO (09:14)
[2019-05-28 09:15] VITALS: PULSE 68; RESP 16; O2SAT 97
[2019-05-28] MEDS: PANTOPRAZOLE SODIUM IV 40 MG VIAL IV PUSH (09:15)
--- NOTE | 2019-05-28 11:34 | WPDGIPROGNO ---
Progress Note: A&P Additional Plan Patient more comfortable this morning. Tolerating diet. Right flank pain has resolved. Physical exam reveals patient to be alert. Anicteric. She is afebrile. Lungs are clear to auscultation and percussion. Heart is without murmur. Abdomen bowel sounds are present soft nontender with no organomegaly. Impression 1. Resolved right flank pain. Etiology unclear. Gallstones identified by ultrasound appear to be asymptomatic. HIDA scan is within normal limits. 2. Cholelithiasis. Does not appear to be symptomatic. Plan is for observation. 3. Sigmoid diverticulitis. Perforation with pericolonic abscesses noted. Patient current we asymptomatic. Now on antibiotics under the direction of the ID service. Surgery is following. Anticipate resection when she is stable enough for this. 4. Gastric ulcer. Identified by recent endoscopy. Patient now on proton pump inhibitors. Anticipate follow-up EGD in 2 months. Avoid nonsteroidal anti-inflammatory agents. 5. Low platelets. Followed by Hematology service at [facility]. 6. Renal insufficiency. [place] to be have chronic kidney disease. Patient now restarted on Epogen. Plan is to increase diet. Antibiotics per ID service and surgical follow-up for pericolonic abscesses. Subjective Date/time seen: 05/28/19 11:34 Objective Data Vital Signs Vital Signs: Vital Signs - 24 hr 05/27/19 20:15 05/27/19 20:25 05/28/19 05:19 Temperature 36.3 C L 36.2 C L Pulse Rate 83 86 83 Respiratory Rate 15 16 16 Blood Pressure 154/73 H 139/64 Pulse Oximetry 97 100 98 Intake/Output Intake/Output: Intake & Output 05/25/19 05/26/19 05/27/19 05/28/19 23:59 23:59 23:59 23:59 Intake Total 150 1832 1359 Output Total 400 300 Balance -250 1532 1359 Meds/Results Medications: Active Medications Generic Name Dose Route Start Last Admin Trade Name Freq PRN Reason Stop Dose Admin Epoetin Nixon 10,000 units 05/26/19 17:10 05/26/19 21:02 Epogen SUB-Q 10,000 units MOWEFR LYLE Administration Hydromorphone HCl 0.5 mg 05/26/19 10:48 Dilaudid Inj IV PUSH Q8H PRN Pain Rated 7-10 Dextrose/Sodium Chloride 1,000 mls @ 50 mls/hr 05/26/19 10:50 05/28/19 07:00 Dextrose 5% Sodium Chloride 0.9% IV CONT 50 mls/hr .Q20H LYLE Administration Aztreonam 1 gm/ Dextrose 50 mls @ 100 mls/hr 05/26/19 14:00 05/28/19 03:00 IVPB Infused Q12H LYLE Infusion Pantoprazole Sodium 40 mg 05/27/19 09:00 05/28/19 09:15 Protonix Iv IV PUSH 40 mg QAM LYLE Administration Polyethylene Glycol 17 gm 05/26/19 16:33 05/28/19 09:14 Miralax PO 17 gm QAM LYLE Administration Radiology Results: ITS Impressions Venous Doppler Study 05/26/19 11:58 IMPRESSION: 1. No lower extremity deep venous thrombosis bilaterally. Renal Ultrasound 05/26/19 16:19 IMPRESSION: 1. Cholelithiasis. 2. Mild increased bilateral renal cortical echogenicity consistent with medical renal disease. No hydronephrosis. 3. Hepatic and pancreatic cysts. Upper Quadrant Ultrasound 05/26/19 16:19 IMPRESSION: 1. Cholelithiasis. 2. Mild increased bilateral renal cortical echogenicity consistent with medical renal disease. No hydronephrosis. 3. Hepatic and pancreatic cysts. Hepatobiliary Scan Nuclear Medicine 05/27/19 16:11 Impression: 1: Normal hepatobiliary scan. Labs Labs: Laboratory Results - last 24 hr 05/28/19 05/28/19 05:30 05:30 WBC 7.6 RBC 2.67 L Hgb 8.2 L Hct 26.3 L MCV 98.5 MCH 30.7 MCHC 31.2 L RDW 16.6 H Plt Count 73 L MPV 11.7 H % Immature Plt Fraction 5.3 Sodium 131 L Potassium 4.1 Chloride 101 Carbon Dioxide 20 L BUN 42 H Creatinine 2.80 H Estim Creat Clear Calc 14 Estimated GFR 16 L Glucose 95 Calcium 8.3 L
--- NOTE | 2019-05-28 12:01 | PM.PNNEP ---
Progress Note: A&P Assessment and Plan (1) Chronic kidney disease, stage 4 (severe): Code(s): N18.4 - Chronic kidney disease, stage 4 (severe) Status: Chronic Assessment and Plan: baseline creatinine runs ~ 2.5 - 3.0mg/dl in the last year or so due to hypertension and vascular disease continue supportive therapy (2) Diverticulitis of large intestine with perforation and abscess with bleeding: Code(s): K57.21 - Diverticulitis of large intestine with perforation and abscess with bleeding Status: Acute Assessment and Plan: as noted by imaging studies to date General Surgery and Infectious Disease following on antibiotics as outlined continue current therapy (3) Hypertension: Code(s): I10 - Essential (primary) hypertension Status: Chronic Assessment and Plan: reasonable control at this time follow trend of hemodynamics BP medications adjustments as deemed necessary (4) Hyponatremia: Code(s): E87.1 - Hypo-osmolality and hyponatremia Status: Acute Assessment and Plan: mainly due to renal dysfunction relatively stable follow trend (5) Chronic anemia: Code(s): D64.9 - Anemia, unspecified Status: Acute Assessment and Plan: multifactorial etiology: - previous JINA - known CKD - acute illness/inflammation - blood loss? on Epogen (gets as an outpatient as well) Long and extensive discussion with patient and daughters at bedside (> 20 minutes) regarding the above issues and plan of care. Will continue to follow. Subjective Date/time seen: 05/28/19 12:01 Chart/interim reviewed since admission -- appears to be doing reasonably well with current therapy; tolerating oral intake as well as antibiotic therapy; no apparent distress at the time of my visit; daughters at bedside and we discussed the situation. Exam Narrative: Exam Narrative: General: WD/WN female in NAD Heart: normal S1 and S2; no rub Lungs: clear to auscultation Abdomen: soft, nontender, nondistended, positive bowel sounds Extremities: no cyanosis or clubbing; no edema Skin: warm and dry Objective Data Vital Signs Vital Signs: Vital Signs Temp Pulse Resp BP Pulse Ox 05/28/19 05:19 36.2 C L 83 16 139/64 98 05/27/19 20:25 36.3 C L 86 16 154/73 H 100 05/27/19 20:15 83 15 97 Intake/Output Intake/Output: Intake & Output 05/25/19 05/26/19 05/27/19 05/28/19 23:59 23:59 23:59 23:59 Intake Total 150 1832 1359 Output Total 400 300 Balance -250 1532 1359 Meds/Results Medications: Active Medications Generic Name Dose Route Start Last Admin Trade Name Freq PRN Reason Stop Dose Admin Epoetin Nixon 10,000 units 05/26/19 17:10 05/26/19 21:02 Epogen SUB-Q 10,000 units MOWEFR LYLE Administration Hydromorphone HCl 0.5 mg 05/26/19 10:48 Dilaudid Inj IV PUSH Q8H PRN Pain Rated 7-10 Dextrose/Sodium Chloride 1,000 mls @ 50 mls/hr 05/26/19 10:50 05/28/19 07:00 Dextrose 5% Sodium Chloride 0.9% IV CONT 50 mls/hr .Q20H LYLE Administration Aztreonam 1 gm/ Dextrose 50 mls @ 100 mls/hr 05/26/19 14:00 05/28/19 03:00 IVPB Infused Q12H LYLE Infusion Pantoprazole Sodium 40 mg 05/27/19 09:00 05/28/19 09:15 Protonix Iv IV PUSH 40 mg QAM LYLE Administration Polyethylene Glycol 17 gm 05/26/19 16:33 05/28/19 09:14 Miralax PO 17 gm QAM LYLE Administration Radiology Results: ITS Impressions Venous Doppler Study 05/26/19 11:58 IMPRESSION: 1. No lower extremity deep venous thrombosis bilaterally. Renal Ultrasound 05/26/19 16:19 IMPRESSION: 1. Cholelithiasis. 2. Mild increased bilateral renal cortical echogenicity consistent with medical renal disease. No hydronephrosis. 3. Hepatic and pancreatic cysts. Upper Quadrant Ultrasound 05/26/19 16:19
--- NOTE | 2019-05-28 12:30 | PM.IMPN ---
Progress Note: A&P Assessment and Plan (1) Diverticulitis of large intestine with perforation and abscess with bleeding: Code(s): K57.21 - Diverticulitis of large intestine with perforation and abscess with bleeding Status: Acute Assessment and Plan: Continue metronidazole and aztreonam Plan is for extended course of antibx prior to definitive surgery. D/w Dr. Lerner. (2) Chronic kidney disease, stage 4 (severe): Code(s): N18.4 - Chronic kidney disease, stage 4 (severe) Status: Chronic Assessment and Plan: 05/28 creatinine 2.8 Continue to monitor (3) Hyponatremia: Code(s): E87.1 - Hypo-osmolality and hyponatremia Status: Acute Assessment and Plan: Stable. Monitor. (4) Hypertension: Qualifiers: Hypertension type: essential hypertension Qualified Code(s): I10 - Essential (primary) hypertension Code(s): I10 - Essential (primary) hypertension Status: Chronic Assessment and Plan: Chronic and stable (5) Gastric ulcer: Qualifiers: Gastric ulcer chronicity: chronic Gastric ulcer complication status: without hemorrhage or perforation Qualified Code(s): K25.7 - Chronic gastric ulcer without hemorrhage or perforation Code(s): K25.9 - Gastric ulcer, unspecified as acute or chronic, without hemorrhage or perforation Status: Acute Assessment and Plan: From recent EGD. Continue protonix. (6) Chronic anemia: Code(s): D64.9 - Anemia, unspecified Status: Acute Assessment and Plan: Stable. Monitor. (7) Breast cancer: Qualifiers: Breast location: unspecified site of breast Estrogen receptor status: unspecified Laterality: unspecified laterality Patient sex: female Qualified Code(s): C50.919 - Malignant neoplasm of unspecified site of unspecified female breast Code(s): C50.919 - Malignant neoplasm of unspecified site of unspecified female breast Status: Acute Assessment and Plan: History of breast cancer, currently pt has thrombocytopenia DR Telles SCD ordered for DVT prophylaxis (8) Edema: Qualifiers: Edema type: unspecified Qualified Code(s): R60.9 - Edema, unspecified Code(s): R60.9 - Edema, unspecified Status: Acute Assessment and Plan: In bilateral legs, Venous doppler ordered to rule out DVTs, dopplers are negative, edema ongoing, stop iv fluids watch perpherial edema. Subjective Date/time seen: 05/28/19 12:30 Interval history: No back pain. Bowels moved today. No bleeding. No cp or sob. Tolerating low fat diet. Review of Systems Review of Systems: All systems reviewed & are unremarkable except as noted in HPI and below Exam Narrative: Exam Narrative: Narrative: Exam Narrative: Elderly frail Const: General: comfortable and no acute distress; No confusion Orientation/consciousness: No confusion HENMT: General nose exam: Normal nares patent Mouth: moist mucous membranes Eyes: General: appearance normal, both eyes and all related structures Sclera: sclerae normal Neck: Neck: supple Resp: Effort & Inspection: normal respiratory effort Auscultation: clear to auscultation bilaterally Cardio: Rate: regular rate Rhythm: regular rhythm GI: Auscultation: NL BS. Nontender. No mass. Skin: General skin exam: normal color and no rashes or lesions noted Neuro: General: No confusion Speech: normal speech Sensory Exam: normal sensation Extrem: General: 1-2+ ankle edema Psych: Mental Status: mental status grossly normal Affect: normal affect and Anxious affect present Objective Data Vital Signs Vital Signs: Vital Signs - 24 hr 05/27/19 20:15 05/27/19 20:25 05/28/19 05:19 Temperature 97.4 F L 97.2 F L Pulse Rate 83 86 83 Respiratory Rate 15 16 16 Blood Pressure 154/73 H 139/64 Pulse Oximetry 97 100 98 Intake/Output Intake/Output: Intake & Output 05/25/19 05/26/19 05/27/19
[2019-05-28 14:00] VITALS: BP 136/62; PULSE 68; RESP 14; TEMP 36.6; O2SAT 97
--- NOTE | 2019-05-28 15:23 | PM.PNGS ---
Progress Note: A&P Assessment and Plan (1) Diverticulitis of large intestine with perforation and abscess with bleeding: Code(s): K57.21 - Diverticulitis of large intestine with perforation and abscess with bleeding Status: Acute Assessment and Plan: Patient tolerating diet and remaining afebrile Discussed with patient and daughters about surgical options. If she can continue current treatment and allow time for abscess/inflammation to improve, it will improve her chances of having a 1 stage operation. If I were to proceed with surgery more urgently, she would have a much higher chance of needing an ostomy which could be permanent given her co-morbidities. I would like to delay surgery until late June as long as she is not having worsening signs/symptoms. Will defer antibiotic course to Dr. Carballo, and plan to follow up with patient as an outpatient up in [place] and then plan surgery accordingly. Subjective Subjective Date/Time Seen: 05/28/19 15:23 No abdominal pain. Bowels moving. No blood in stool. Tolerating diet. Exam GI: Inspection: non-distended GI Palp: No abdominal tenderness, Yes Soft to palpation, No Tenderness to palpation present (GI), No Guarding due to palpation present (GI) and No Rebound tenderness present Percussion: Yes normal to percussion Auscultation: normal bowel sounds Objective Data Vital Signs Vital Signs: Vital Signs - 24 hr 05/27/19 20:15 05/27/19 20:25 05/28/19 05:19 Temperature 36.3 C L 36.2 C L Pulse Rate 83 86 83 Respiratory Rate 15 16 16 Blood Pressure 154/73 H 139/64 Pulse Oximetry 97 100 98 05/28/19 14:00 Temperature 36.6 C Pulse Rate 68 Respiratory Rate 14 Blood Pressure 136/62 Pulse Oximetry 97 Intake/Output Intake/Output: Intake & Output 05/25/19 05/26/19 05/27/19 05/28/19 23:59 23:59 23:59 23:59 Intake Total 150 1832 1479 Output Total 400 300 Balance -250 1532 1479 Meds/Results Medications: Active Medications Generic Name Dose Route Start Last Admin Trade Name Freq PRN Reason Stop Dose Admin Epoetin Nixon 10,000 units 05/26/19 17:10 05/26/19 21:02 Epogen SUB-Q 10,000 units MOWEFR LYLE Administration Hydromorphone HCl 0.5 mg 05/26/19 10:48 Dilaudid Inj IV PUSH Q8H PRN Pain Rated 7-10 Dextrose/Sodium Chloride 1,000 mls @ 50 mls/hr 05/26/19 10:50 05/28/19 14:03 Dextrose 5% Sodium Chloride 0.9% IV CONT 0 mls/hr .Q20H LYLE Infusion Aztreonam 1 gm/ Dextrose 50 mls @ 100 mls/hr 05/26/19 14:00 05/28/19 13:59 IVPB 100 mls/hr Q12H LYLE Administration Pantoprazole Sodium 40 mg 05/27/19 09:00 05/28/19 09:15 Protonix Iv IV PUSH 40 mg QAM LYLE Administration Polyethylene Glycol 17 gm 05/26/19 16:33 05/28/19 09:14 Miralax PO 17 gm QAM LYLE Administration Radiology Results: ITS Impressions Venous Doppler Study 05/26/19 11:58 IMPRESSION: 1. No lower extremity deep venous thrombosis bilaterally. Renal Ultrasound 05/26/19 16:19 IMPRESSION: 1. Cholelithiasis. 2. Mild increased bilateral renal cortical echogenicity consistent with medical renal disease. No hydronephrosis. 3. Hepatic and pancreatic cysts. Upper Quadrant Ultrasound 05/26/19 16:19 IMPRESSION: 1. Cholelithiasis. 2. Mild increased bilateral renal cortical echogenicity consistent with medical renal disease. No hydronephrosis. 3. Hepatic and pancreatic cysts. Hepatobiliary Scan Nuclear Medicine 05/27/19 16:11 Impression: 1: Normal hepatobiliary scan. Labs Labs: Laboratory Results - last 24 hr 05/26/19 05/28/19 05/28/19 17:01 05:30 05:30 WBC 7.6 RBC 2.67 L Hgb 8.2 L Hct 26.3 L MCV 98.5 MCH 30.7 MCHC 31.2 L RDW 16.6 H Plt Count 73 L MPV 11.7 H % Immature Plt Fraction 5.3 Sodium 131 L Potassium 4.1 Chloride 101 Carbon Dioxide 20 L BUN 42 H Creatinine 2.80 H Estim Creat Clear Calc 14 Estimated GFR
--- NOTE | 2019-05-28 15:50 | WPDINFPN2 ---
Progress Note: A&P Assessment and Plan (1) Diverticulitis of large intestine with perforation and abscess with bleeding: Code(s): K57.21 - Diverticulitis of large intestine with perforation and abscess with bleeding Status: Acute Assessment and Plan: 1. Diverticular abscesses, not worse by CT nor by signs/symptoms, but not resolved on CT either, raising the possibility of subtle perforation ongoing. 2. Multiple allergies 3. Lumbar back pain (her CC, NOT flank pain), I do not think that this is due to her diverticulitis REC Aztreonam and metronidazole #3 (latter interrupted, I resumed). She has no leukocytosis nor fever. ReCT not done. If no surgery planned, then IV therapy through 06/04/19. Subjective Date/time seen: 05/28/19 15:50 Interval history: no pain in back nor flank nor abdomen. + BMs. Up with assistance Exam Narrative: Exam Narrative: afebrile Const: General: no acute distress Eyes: General: appearance normal, both eyes and all related structures Resp: Effort & Inspection: normal respiratory effort Auscultation: clear to auscultation bilaterally Cardio: Rate: regular rate Rhythm: regular rhythm Heart sounds: no murmurs GI: Inspection: non-distended GI Palp: Yes Soft to palpation and No Tenderness to palpation present (GI) Objective Data Vital Signs Vital Signs: Vital Signs - 24 hr 05/27/19 20:15 05/27/19 20:25 05/28/19 05:19 Temperature 36.3 C L 36.2 C L Pulse Rate 83 86 83 Respiratory Rate 15 16 16 Blood Pressure 154/73 H 139/64 Pulse Oximetry 97 100 98 05/28/19 14:00 Temperature 36.6 C Pulse Rate 68 Respiratory Rate 14 Blood Pressure 136/62 Pulse Oximetry 97 Intake/Output Intake/Output: Intake & Output 05/25/19 05/26/19 05/27/19 05/28/19 23:59 23:59 23:59 23:59 Intake Total 150 1832 1479 Output Total 400 300 Balance -250 1532 1479 Meds/Results Medications: Active Medications Generic Name Dose Route Start Last Admin Trade Name Freq PRN Reason Stop Dose Admin Epoetin Nixon 10,000 units 05/26/19 17:10 05/26/19 21:02 Epogen SUB-Q 10,000 units MOWEFR LYLE Administration Hydromorphone HCl 0.5 mg 05/26/19 10:48 Dilaudid Inj IV PUSH Q8H PRN Pain Rated 7-10 Dextrose/Sodium Chloride 1,000 mls @ 50 mls/hr 05/26/19 10:50 05/28/19 14:03 Dextrose 5% Sodium Chloride 0.9% IV CONT 0 mls/hr .Q20H LYLE Infusion Aztreonam 1 gm/ Dextrose 50 mls @ 100 mls/hr 05/26/19 14:00 05/28/19 13:59 IVPB 100 mls/hr Q12H LYLE Administration Metronidazole 500 mg 05/28/19 15:35 Flagyl PO Q8HR LYLE Pantoprazole Sodium 40 mg 05/27/19 09:00 05/28/19 09:15 Protonix Iv IV PUSH 40 mg QAM LYLE Administration Polyethylene Glycol 17 gm 05/26/19 16:33 05/28/19 09:14 Miralax PO 17 gm QAM LYLE Administration Radiology Results: ITS Impressions Venous Doppler Study 05/26/19 11:58 IMPRESSION: 1. No lower extremity deep venous thrombosis bilaterally. Renal Ultrasound 05/26/19 16:19 IMPRESSION: 1. Cholelithiasis. 2. Mild increased bilateral renal cortical echogenicity consistent with medical renal disease. No hydronephrosis. 3. Hepatic and pancreatic cysts. Upper Quadrant Ultrasound 05/26/19 16:19 IMPRESSION: 1. Cholelithiasis. 2. Mild increased bilateral renal cortical echogenicity consistent with medical renal disease. No hydronephrosis. 3. Hepatic and pancreatic cysts. Hepatobiliary Scan Nuclear Medicine 05/27/19 16:11 Impression: 1: Normal hepatobiliary scan. Labs Labs: Laboratory Results - last 24 hr 05/26/19 05/28/19 05/28/19 17:01 05:30 05:30 WBC 7.6 RBC 2.67 L Hgb 8.2 L Hct 26.3 L MCV 98.5 MCH 30.7 MCHC 31.2 L RDW 16.6 H Plt Count 73 L MPV 11.7 H % Immature Plt Fraction 5.3 Sodium 131 L Potassium 4.1 Chloride 101 Carbon Dioxide 20 L BUN 42 H Creatinine 2.80 H Estim Creat Clear Calc 14 E
[2019-05-28] MEDS: metroNIDAZOLE 250 MG TABLET 500 MG PO ×2 (16:08→21:54)
[2019-05-28] MEDS: EPOETIN ALFA 10,000 UNITS/ML VIAL 10000 UNITS SUB-Q (17:29)
[2019-05-28 21:38] VITALS: BP 153/77; PULSE 92; RESP 16; TEMP 36.8; O2SAT 99
[2019-05-29] MEDS: AZTREONAM 1 GM in DEXTROSE 5% IN WATER 50 ML IVPB ×2 (01:51→14:14)
[2019-05-29 05:34] VITALS: BP 142/68; PULSE 88; RESP 18; TEMP 36.6; O2SAT 99
[2019-05-29] MEDS: DEXTROSE 5%/0.9% SOD CHL 1,000 ML 50 ML IV CONT (05:34)
[2019-05-29] MEDS: metroNIDAZOLE 250 MG TABLET 500 MG PO ×3 (05:34→21:00)
[2019-05-29 06:55] LABS: Hematocrit 25.9 % (37.0-47.0); Hemoglobin 8.2 g/dL (12.0-15.0); Immature Platelet Fraction Pct 6.1 % (0.9-11.2); Mean Corpuscular HGB Conc 31.7 g/dl (32-36); Mean Corpuscular Hemoglobin 30.9 pg (26-34); Mean Corpuscular Volume 97.7 fl (80-100); Mean Platelet Volume 12.8 fl (7.4-10.4); Platelet Count Result 62 k/mm3 (150-375); Red Blood Count 2.65 M/mm3 (4.2-5.4); Red Cell Distribution Width 16.7 % (11.5-14.5); White Blood Count 7.5 K/mm3 (4.5-10.0)
[2019-05-29 07:10] LABS: Blood Urea Nitrogen 39 mg/dL (7-17); CRP 4.4 mg/dL (<1.0); Calcium 8.3 mg/dL (8.4-10.2); Carbon Dioxide 18 mmol/L (22-30); Chloride 102 mmol/L (98-107); Estimated CRCL calculation 15 ml/min; Estimated Glomerular Filt Rate 18; Glucose 95 mg/dL (65-105); Potassium 4.1 mmol/L (3.4-5.0); Sodium 132 mmol/L (137-145)
[2019-05-29] MEDS: PANTOPRAZOLE SODIUM IV 40 MG VIAL IV PUSH (09:11)
--- NOTE | 2019-05-29 12:32 | PM.IMPN ---
Progress Note: A&P Assessment and Plan (1) Diverticulitis of large intestine with perforation and abscess with bleeding: Code(s): K57.21 - Diverticulitis of large intestine with perforation and abscess with bleeding Status: Acute Assessment and Plan: Continue metronidazole and aztreonam Plan is for extended course of antibx prior to definitive surgery. (2) Chronic kidney disease, stage 4 (severe): Code(s): N18.4 - Chronic kidney disease, stage 4 (severe) Status: Chronic Assessment and Plan: 05/28 creatinine 2.8 Continue to monitor (3) Hyponatremia: Code(s): E87.1 - Hypo-osmolality and hyponatremia Status: Acute Assessment and Plan: Stable. Monitor. (4) Hypertension: Qualifiers: Hypertension type: essential hypertension Qualified Code(s): I10 - Essential (primary) hypertension Code(s): I10 - Essential (primary) hypertension Status: Chronic Assessment and Plan: Chronic and stable (5) Gastric ulcer: Qualifiers: Gastric ulcer chronicity: chronic Gastric ulcer complication status: without hemorrhage or perforation Qualified Code(s): K25.7 - Chronic gastric ulcer without hemorrhage or perforation Code(s): K25.9 - Gastric ulcer, unspecified as acute or chronic, without hemorrhage or perforation Status: Acute Assessment and Plan: From recent EGD. Continue protonix. (6) Chronic anemia: Code(s): D64.9 - Anemia, unspecified Status: Acute Assessment and Plan: Stable. Monitor. (7) Breast cancer: Qualifiers: Breast location: unspecified site of breast Estrogen receptor status: unspecified Patient sex: female Laterality: unspecified laterality Qualified Code(s): C50.919 - Malignant neoplasm of unspecified site of unspecified female breast Code(s): C50.919 - Malignant neoplasm of unspecified site of unspecified female breast Status: Acute Assessment and Plan: History of breast cancer, currently pt has thrombocytopenia DR Telles SCD ordered for DVT prophylaxis (8) Edema: Qualifiers: Edema type: unspecified Qualified Code(s): R60.9 - Edema, unspecified Code(s): R60.9 - Edema, unspecified Status: Acute Assessment and Plan: In bilateral legs, Venous doppler ordered to rule out DVTs, dopplers are negative, edema ongoing, stop iv fluids watch perpherial edema. Subjective Date/time seen: 05/29/19 12:32 Interval history: Tolerated diet. But had some lower abdominal cramping and diarrhea after taking regular in sugar. Prefers the clear. No bleeding. No fevers or chills. No chest pain or shortness of breath. Review of Systems Review of Systems: All systems reviewed & are unremarkable except as noted in HPI and below Exam Narrative: Exam Narrative: HEENT: EOMI, PERRL, pharyngeal mucosa pink and intact NECK: No JVD CHEST: Clear to auscultation. Normal effort. HEART: NL S1/S2, regular, 3/6 PAYAL ABDOMEN: BS+, soft, nontender, no mass, no bruits EXTREMITIES: No cyanosis, edema, or clubbing NEUROLOGIC: CN intact and symmetric to inspection. MUSCULOSKELETAL: Tone and strength symmetric. PSYCH: Alert. Oriented to person, place, and time. Objective Data Vital Signs Vital Signs: Vital Signs - 24 hr 05/28/19 14:00 05/28/19 21:38 05/29/19 05:34 Temperature 97.8 F 98.2 F 97.9 F Pulse Rate 68 92 88 Respiratory Rate 14 16 18 Blood Pressure 136/62 153/77 H 142/68 H Pulse Oximetry 97 99 99 Intake/Output Intake/Output: Intake & Output 05/26/19 05/27/19 05/28/19 05/29/19 23:59 23:59 23:59 23:59 Intake Total 150 1832 3369 1320 Output Total 400 300 400 450 Balance -250 1532 2969 870 Meds/Results Medications: Active Medications Generic Name Dose Route Start Last Admin Trade Name Freq PRN Reason Stop Dose Admin Epoetin Nixon 10,000 units 05/26/19 17:10 05/28/19 17:29 Epogen SUB-Q 10,000 units MOWE
[2019-05-29 14:00] VITALS: BP 135/61; PULSE 82; RESP 22; TEMP 36.3; O2SAT 100
--- NOTE | 2019-05-29 14:08 | PM.PNNEP ---
Progress Note: A&P Assessment and Plan (1) Chronic kidney disease, stage 4 (severe): Code(s): N18.4 - Chronic kidney disease, stage 4 (severe) Status: Chronic Assessment and Plan: stable baseline creatinine runs ~ 2.5 - 3.0mg/dl in the last year or so due to hypertension and vascular disease continue supportive therapy (2) Diverticulitis of large intestine with perforation and abscess with bleeding: Code(s): K57.21 - Diverticulitis of large intestine with perforation and abscess with bleeding Status: Acute Assessment and Plan: as noted by imaging studies to date General Surgery and Infectious Disease following on antibiotics as outlined continue current therapy (3) Hypertension: Qualifiers: Hypertension type: essential hypertension Qualified Code(s): I10 - Essential (primary) hypertension Code(s): I10 - Essential (primary) hypertension Status: Chronic Assessment and Plan: reasonable control at this time follow trend of hemodynamics BP medications adjustments as deemed necessary (4) Hyponatremia: Code(s): E87.1 - Hypo-osmolality and hyponatremia Status: Acute Assessment and Plan: mainly due to renal dysfunction relatively stable follow trend (5) Chronic anemia: Code(s): D64.9 - Anemia, unspecified Status: Acute Assessment and Plan: multifactorial etiology: - previous JINA - known CKD - acute illness/inflammation - blood loss? on Epogen (gets as an outpatient as well) Will continue to follow. Subjective Date/time seen: 05/29/19 14:08 Continue to make slow and steady improvement; tolerating oral intake but seems to be doing better with clear than anything else; no other acute concerns voiced at this time. Exam Narrative: Exam Narrative: General: WD/WN female in NAD Heart: normal S1 and S2; no rub Lungs: clear to auscultation Abdomen: soft, nontender, nondistended, positive bowel sounds Extremities: no cyanosis or clubbing; no edema Skin: warm and intact Objective Data Vital Signs Vital Signs: Vital Signs Temp Pulse Resp BP Pulse Ox 05/29/19 05:34 36.6 C 88 18 142/68 H 99 05/28/19 21:38 36.8 C 92 16 153/77 H 99 Intake/Output Intake/Output: Intake & Output 05/26/19 05/27/19 05/28/19 05/29/19 23:59 23:59 23:59 23:59 Intake Total 150 1832 3369 1320 Output Total 400 300 400 450 Balance -250 1532 2969 870 Meds/Results Medications: Active Medications Generic Name Dose Route Start Last Admin Trade Name Freq PRN Reason Stop Dose Admin Epoetin Nixon 10,000 units 05/26/19 17:10 05/28/19 17:29 Epogen SUB-Q 10,000 units MOWEFR LYLE Administration Hydromorphone HCl 0.5 mg 05/26/19 10:48 Dilaudid Inj IV PUSH Q8H PRN Pain Rated 7-10 Dextrose/Sodium Chloride 1,000 mls @ 50 mls/hr 05/26/19 10:50 05/29/19 05:34 Dextrose 5% Sodium Chloride 0.9% IV CONT 50 mls/hr .Q20H LYLE Administration Aztreonam 1 gm/ Dextrose 50 mls @ 100 mls/hr 05/26/19 14:00 05/29/19 02:21 IVPB Infused Q12H LYLE Infusion Metronidazole 500 mg 05/28/19 15:35 05/29/19 05:34 Flagyl PO 500 mg Q8HR LYLE Administration Pantoprazole Sodium 40 mg 05/27/19 09:00 05/29/19 09:11 Protonix Iv IV PUSH 40 mg QAM LYLE Administration Polyethylene Glycol 17 gm 05/26/19 16:33 05/29/19 09:13 Miralax PO Not Given QAM LYLE Radiology Results: ITS Impressions Venous Doppler Study 05/26/19 11:58 IMPRESSION: 1. No lower extremity deep venous thrombosis bilaterally. Renal Ultrasound 05/26/19 16:19 IMPRESSION: 1. Cholelithiasis. 2. Mild increased bilateral renal cortical echogenicity consistent with medical renal disease. No hydronephrosis. 3. Hepatic and pancreatic cysts. Upper Quadrant Ultrasound 05/26/19 16:19
--- NOTE | 2019-05-29 15:29 | PM.PNGS ---
Progress Note: A&P Assessment and Plan (1) Diverticulitis of large intestine with perforation and abscess with bleeding: Code(s): K57.21 - Diverticulitis of large intestine with perforation and abscess with bleeding Status: Acute Assessment and Plan: Continue IV antibiotics Will monitor for any continued N/V or worsening abdominal pain Eventual sigmoid colon resection recommended, but would like to wait for infection/inflammation to resolve if possible (2) Chronic kidney disease, stage 4 (severe): Code(s): N18.4 - Chronic kidney disease, stage 4 (severe) Status: Chronic (3) Pancytopenia: Code(s): D61.818 - Other pancytopenia Status: Chronic Subjective Subjective Date/Time Seen: 05/29/19 15:29 Mild abdominal pain today and 1 episode of Nausea/vomiting. Otherwise has been doing well. No fevers. Bowels moving, somewhat loose. No blood in stool. Exam GI: GI Palp: Yes Soft to palpation and Yes Tenderness to palpation present (GI) (mild generalized) Auscultation: normal bowel sounds Other: Mild abdominal distention Objective Data Vital Signs Vital Signs: Vital Signs - 24 hr 05/28/19 21:38 05/29/19 05:34 05/29/19 14:00 Temperature 36.8 C 36.6 C 36.3 C L Pulse Rate 92 88 82 Respiratory Rate 16 18 22 H Blood Pressure 153/77 H 142/68 H 135/61 Pulse Oximetry 99 99 100 Intake/Output Intake/Output: Intake & Output 05/26/19 05/27/19 05/28/19 05/29/19 23:59 23:59 23:59 23:59 Intake Total 150 1832 3369 1560 Output Total 400 300 400 450 Balance -250 1532 2969 1110 Meds/Results Medications: Active Medications Generic Name Dose Route Start Last Admin Trade Name Freq PRN Reason Stop Dose Admin Epoetin Nixon 10,000 units 05/26/19 17:10 05/28/19 17:29 Epogen SUB-Q 10,000 units MOWEFR LYLE Administration Hydromorphone HCl 0.5 mg 05/26/19 10:48 Dilaudid Inj IV PUSH Q8H PRN Pain Rated 7-10 Dextrose/Sodium Chloride 1,000 mls @ 50 mls/hr 05/26/19 10:50 05/29/19 05:34 Dextrose 5% Sodium Chloride 0.9% IV CONT 50 mls/hr .Q20H LYLE Administration Aztreonam 1 gm/ Dextrose 50 mls @ 100 mls/hr 05/26/19 14:00 05/29/19 14:14 IVPB 100 mls/hr Q12H LYLE Administration Metronidazole 500 mg 05/28/19 15:35 05/29/19 14:13 Flagyl PO 500 mg Q8HR LYLE Administration Pantoprazole Sodium 40 mg 05/27/19 09:00 05/29/19 09:11 Protonix Iv IV PUSH 40 mg QAM LYLE Administration Polyethylene Glycol 17 gm 05/26/19 16:33 05/29/19 09:13 Miralax PO Not Given QAM LYLE Radiology Results: ITS Impressions Venous Doppler Study 05/26/19 11:58 IMPRESSION: 1. No lower extremity deep venous thrombosis bilaterally. Renal Ultrasound 05/26/19 16:19 IMPRESSION: 1. Cholelithiasis. 2. Mild increased bilateral renal cortical echogenicity consistent with medical renal disease. No hydronephrosis. 3. Hepatic and pancreatic cysts. Upper Quadrant Ultrasound 05/26/19 16:19 IMPRESSION: 1. Cholelithiasis. 2. Mild increased bilateral renal cortical echogenicity consistent with medical renal disease. No hydronephrosis. 3. Hepatic and pancreatic cysts. Hepatobiliary Scan Nuclear Medicine 05/27/19 16:11 Impression: 1: Normal hepatobiliary scan. Labs Labs: Laboratory Results - last 24 hr 05/29/19 05/29/19 06:09 06:09 WBC 7.5 RBC 2.65 L Hgb 8.2 L Hct 25.9 L MCV 97.7 MCH 30.9 MCHC 31.7 L RDW 16.7 H Plt Count 62 L MPV 12.8 H % Immature Plt Fraction 6.1 Sodium 132 L Potassium 4.1 Chloride 102 Carbon Dioxide 18 L BUN 39 H Creatinine 2.60 H Estim Creat Clear Calc 15 Estimated GFR 18 L Glucose 95 Calcium 8.3 L C-Reactive Protein 4.4 H Quality VTE Prophylaxis VTE prophylaxis: mechanical ordered
--- NOTE | 2019-05-29 16:17 | PCOTNOTE ---
Patient refused treatment this session due to feeling too tired at this time.
--- NOTE | 2019-05-29 16:53 | PCOTNOTE ---
The patient treatment was not able to be completed on [05/29/19] due to [short of staff]. Will plan to continue treatment per plan of care.
[2019-05-29 20:45] VITALS: BP 159/80; PULSE 95; RESP 20; TEMP 36.8; O2SAT 100
[2019-05-30] MEDS: AZTREONAM 1 GM in DEXTROSE 5% IN WATER 50 ML IVPB ×2 (02:00→15:10)
[2019-05-30] MEDS: DEXTROSE 5%/0.9% SOD CHL 1,000 ML 50 ML IV CONT (02:00)
[2019-05-30 03:24] VITALS: BP 152/78; PULSE 100; RESP 22; TEMP 37; O2SAT 98
[2019-05-30] MEDS: FUROSEMIDE INJ 40 MG/4 ML VIAL 20 MG IV PUSH (04:13)
[2019-05-30] MEDS: metroNIDAZOLE 250 MG TABLET 500 MG PO ×3 (05:20→21:55)
[2019-05-30 05:36] LABS: Hemoglobin 8.4 g/dL (12.0-15.0); Mean Corpuscular HGB Conc 32.3 g/dl (32-36); Mean Corpuscular Hemoglobin 30.7 pg (26-34); Mean Corpuscular Volume 94.9 fl (80-100); Mean Platelet Volume 12.7 fl (7.4-10.4); Platelet Count Result 67 k/mm3 (150-375); Red Blood Count 2.74 M/mm3 (4.2-5.4); Red Cell Distribution Width 16.7 % (11.5-14.5); White Blood Count 7.1 K/mm3 (4.5-10.0)
[2019-05-30 05:54] LABS: Blood Urea Nitrogen 36 mg/dL (7-17); Calcium 8.5 mg/dL (8.4-10.2); Carbon Dioxide 18 mmol/L (22-30); Chloride 105 mmol/L (98-107); Estimated CRCL calculation 17 ml/min; Estimated Glomerular Filt Rate 20; Glucose 92 mg/dL (65-105); Potassium 3.9 mmol/L (3.4-5.0); Sodium 132 mmol/L (137-145)
[2019-05-30] MEDS: PANTOPRAZOLE SODIUM IV 40 MG VIAL IV PUSH (08:06)
[2019-05-30] MEDS: polyethylene glycoL 3350 17 GM POWD.PACK PO (08:06)
--- NOTE | 2019-05-30 12:55 | PM.PNGS ---
Progress Note: A&P Assessment and Plan (1) Diverticulitis of large intestine with perforation and abscess with bleeding: Code(s): K57.21 - Diverticulitis of large intestine with perforation and abscess with bleeding Status: Acute Assessment and Plan: Continue IV antibiotics Eventual sigmoid resection discussed with patient and family (2) Pancytopenia: Code(s): D61.818 - Other pancytopenia Status: Chronic (3) Nausea & vomiting: Code(s): R11.2 - Nausea with vomiting, unspecified Status: Acute Assessment and Plan: Will get Abdominal X-ray today, may need to back off to clear liquids. Subjective Subjective Date/Time Seen: 05/30/19 12:55 Feeling more bloated today. Nauseated vomited again. Not much appetite. Bowels still moving. Exam GI: Inspection: distended Objective Data Vital Signs Vital Signs: Vital Signs - 24 hr 05/29/19 14:00 05/29/19 20:45 05/30/19 03:24 Temperature 36.3 C L 36.8 C 37.0 C Pulse Rate 82 95 100 Respiratory Rate 22 H 20 22 H Blood Pressure 135/61 159/80 H 152/78 H Pulse Oximetry 100 100 98 Intake/Output Intake/Output: Intake & Output 05/27/19 05/28/19 05/29/19 05/30/19 23:59 23:59 23:59 23:59 Intake Total 1832 3369 2090 1505 Output Total 300 400 450 100 Balance 1532 2969 1640 1405 Meds/Results Medications: Active Medications Generic Name Dose Route Start Last Admin Trade Name Freq PRN Reason Stop Dose Admin Epoetin Nixon 10,000 units 05/26/19 17:10 05/28/19 17:29 Epogen SUB-Q 10,000 units MOWEFR LYLE Administration Hydromorphone HCl 0.5 mg 05/26/19 10:48 Dilaudid Inj IV PUSH Q8H PRN Pain Rated 7-10 Aztreonam 1 gm/ Dextrose 50 mls @ 100 mls/hr 05/26/19 14:00 05/30/19 02:30 IVPB Infused Q12H LYLE Infusion Metronidazole 500 mg 05/28/19 15:35 05/30/19 05:20 Flagyl PO 500 mg Q8HR LYLE Administration Pantoprazole Sodium 40 mg 05/27/19 09:00 05/30/19 08:06 Protonix Iv IV PUSH 40 mg QAM LYLE Administration Polyethylene Glycol 17 gm 05/26/19 16:33 05/30/19 08:06 Miralax PO 17 gm QAM LYLE Administration Radiology Results: ITS Impressions Venous Doppler Study 05/26/19 11:58 IMPRESSION: 1. No lower extremity deep venous thrombosis bilaterally. Renal Ultrasound 05/26/19 16:19 IMPRESSION: 1. Cholelithiasis. 2. Mild increased bilateral renal cortical echogenicity consistent with medical renal disease. No hydronephrosis. 3. Hepatic and pancreatic cysts. Upper Quadrant Ultrasound 05/26/19 16:19 IMPRESSION: 1. Cholelithiasis. 2. Mild increased bilateral renal cortical echogenicity consistent with medical renal disease. No hydronephrosis. 3. Hepatic and pancreatic cysts. Hepatobiliary Scan Nuclear Medicine 05/27/19 16:11 Impression: 1: Normal hepatobiliary scan. Labs Labs: Laboratory Results - last 24 hr 05/30/19 05/30/19 05:15 05:15 WBC 7.1 RBC 2.74 L Hgb 8.4 L Hct 26.0 L MCV 94.9 MCH 30.7 MCHC 32.3 RDW 16.7 H Plt Count 67 L MPV 12.7 H Sodium 132 L Potassium 3.9 Chloride 105 Carbon Dioxide 18 L BUN 36 H Creatinine 2.40 H Estim Creat Clear Calc 17 Estimated GFR 20 L Glucose 92 Calcium 8.5 Quality VTE Prophylaxis VTE prophylaxis: mechanical ordered
--- NOTE | 2019-05-30 13:47 | PM.IMPN ---
Progress Note: A&P Assessment and Plan (1) Diverticulitis of large intestine with perforation and abscess with bleeding: Code(s): K57.21 - Diverticulitis of large intestine with perforation and abscess with bleeding Status: Acute Assessment and Plan: Continue metronidazole and aztreonam Plan is for extended course of antibx prior to definitive surgery. (2) Nausea & vomiting: Qualifiers: Vomiting type: unspecified Vomiting Intractability: unspecified Qualified Code(s): R11.2 - Nausea with vomiting, unspecified Code(s): R11.2 - Nausea with vomiting, unspecified Status: Acute Assessment and Plan: Feels better after emesis KUB unremarkable Perhaps simply ate too much Clear liquids and advance as tolerated (3) Chronic kidney disease, stage 4 (severe): Code(s): N18.4 - Chronic kidney disease, stage 4 (severe) Status: Chronic Assessment and Plan: 05/28 creatinine 2.8, 05/30 2.4 Continue to monitor (4) Hyponatremia: Code(s): E87.1 - Hypo-osmolality and hyponatremia Status: Acute Assessment and Plan: Stable. Monitor. (5) Hypertension: Qualifiers: Hypertension type: essential hypertension Qualified Code(s): I10 - Essential (primary) hypertension Code(s): I10 - Essential (primary) hypertension Status: Chronic Assessment and Plan: Chronic and stable (6) Gastric ulcer: Qualifiers: Gastric ulcer chronicity: chronic Gastric ulcer complication status: without hemorrhage or perforation Qualified Code(s): K25.7 - Chronic gastric ulcer without hemorrhage or perforation Code(s): K25.9 - Gastric ulcer, unspecified as acute or chronic, without hemorrhage or perforation Status: Acute Assessment and Plan: From recent EGD. Continue protonix. (7) Chronic anemia: Code(s): D64.9 - Anemia, unspecified Status: Acute Assessment and Plan: Stable. Monitor. (8) Breast cancer: Qualifiers: Breast location: unspecified site of breast Estrogen receptor status: unspecified Patient sex: female Laterality: unspecified laterality Qualified Code(s): C50.919 - Malignant neoplasm of unspecified site of unspecified female breast Code(s): C50.919 - Malignant neoplasm of unspecified site of unspecified female breast Status: Acute Assessment and Plan: History of breast cancer, currently pt has thrombocytopenia DR Telles SCD ordered for DVT prophylaxis (9) Edema: Qualifiers: Edema type: unspecified Qualified Code(s): R60.9 - Edema, unspecified Code(s): R60.9 - Edema, unspecified Status: Acute Assessment and Plan: In bilateral legs, Venous doppler ordered to rule out DVTs, dopplers are negative, edema ongoing, stop iv fluids watch perpherial edema. Subjective Date/time seen: 05/30/19 13:47 Interval history: N/v after lunch. Denied pain. No stool change. No cp or sob. Review of Systems Review of Systems: All systems reviewed & are unremarkable except as noted in HPI and below Exam Narrative: Exam Narrative: HEENT: EOMI, PERRL, pharyngeal mucosa pink and intact NECK: No JVD CHEST: Clear to auscultation. Normal effort. HEART: NL S1/S2, regular, 3/6 PAYAL ABDOMEN: BS+, soft, nontender, no mass, no bruits EXTREMITIES: No cyanosis, edema, or clubbing NEUROLOGIC: CN intact and symmetric to inspection. MUSCULOSKELETAL: Tone and strength symmetric. PSYCH: Alert. Oriented to person, place, and time. Objective Data Vital Signs Vital Signs: Vital Signs - 24 hr 05/29/19 14:00 05/29/19 20:45 05/30/19 03:24 Temperature 97.4 F L 98.2 F 98.6 F Pulse Rate 82 95 100 Respiratory Rate 22 H 20 22 H Blood Pressure 135/61 159/80 H 152/78 H Pulse Oximetry 100 100 98 Intake/Output Intake/Output: Intake & Output 05/27/19 05/28/19 05/29/19 05/30/19 23:59 23:59 23:59 23:59 Intake Total 1832 3369 2090 1505 Ou
[2019-05-30 14:00] VITALS: BP 149/76; PULSE 84; RESP 20; TEMP 36.4; O2SAT 100
--- NOTE | 2019-05-30 16:15 | PCPTNOTE ---
Patient refused treatment this date, attempted in early afternoon patient reported come back at a later time due to family visiting and attempted to be seen again in later afternoon patient refused due to stomach pain.
--- NOTE | 2019-05-30 16:40 | PM.PNNEP ---
Progress Note: A&P Assessment and Plan (1) Chronic kidney disease, stage 4 (severe): Code(s): N18.4 - Chronic kidney disease, stage 4 (severe) Status: Chronic Assessment and Plan: stable if not better than baseline baseline creatinine runs ~ 2.5 - 3.0mg/dl in the last year or so due to hypertension and vascular disease continue supportive therapy (2) Diverticulitis of large intestine with perforation and abscess with bleeding: Code(s): K57.21 - Diverticulitis of large intestine with perforation and abscess with bleeding Status: Acute Assessment and Plan: as noted by imaging studies to date General Surgery and Infectious Disease following on antibiotics as outlined continue current therapy (3) Hypertension: Qualifiers: Hypertension type: essential hypertension Qualified Code(s): I10 - Essential (primary) hypertension Code(s): I10 - Essential (primary) hypertension Status: Chronic Assessment and Plan: reasonable control at this time follow trend of hemodynamics BP medications adjustments as deemed necessary (4) Hyponatremia: Code(s): E87.1 - Hypo-osmolality and hyponatremia Status: Acute Assessment and Plan: mainly due to renal dysfunction relatively stable follow trend (5) Chronic anemia: Code(s): D64.9 - Anemia, unspecified Status: Acute Assessment and Plan: multifactorial etiology: - previous JINA - known CKD - acute illness/inflammation - blood loss? on Epogen (gets as an outpatient as well) Will continue to follow. Subjective Date/time seen: 05/30/19 16:40 Appears to be doing reasonably well; noted some nausea/vomiting after lunch; no other acute issues or problems voiced at this time. Exam Narrative: Exam Narrative: General: WD/WN female in NAD Heart: normal S1 and S2; no rub Lungs: clear to auscultation Abdomen: soft, nontender, nondistended, positive bowel sounds Extremities: no cyanosis or clubbing; no edema Skin: warm and intact Objective Data Vital Signs Vital Signs: Vital Signs Temp Pulse Resp BP Pulse Ox 05/30/19 14:00 36.4 C 84 20 149/76 H 100 05/30/19 03:24 37.0 C 100 22 H 152/78 H 98 05/29/19 20:45 36.8 C 95 20 159/80 H 100 Intake/Output Intake/Output: Intake & Output 02/20/20 05/28/19 05/29/19 05/30/19 23:59 23:59 23:59 23:59 Intake Total 1832 3369 2090 1795 Output Total 300 400 450 100 Balance 1532 2969 1640 1695 Meds/Results Medications: Active Medications Generic Name Dose Route Start Last Admin Trade Name Freq PRN Reason Stop Dose Admin Epoetin Nixon 10,000 units 05/26/19 17:10 05/28/19 17:29 Epogen SUB-Q 10,000 units MOWEFR LYLE Administration Hydromorphone HCl 0.5 mg 05/26/19 10:48 Dilaudid Inj IV PUSH Q8H PRN Pain Rated 7-10 Aztreonam 1 gm/ Dextrose 50 mls @ 100 mls/hr 05/26/19 14:00 05/30/19 15:40 IVPB Infused Q12H LYLE Infusion Metronidazole 500 mg 05/28/19 15:35 05/30/19 15:10 Flagyl PO 500 mg Q8HR LYLE Administration Pantoprazole Sodium 40 mg 05/27/19 09:00 05/30/19 08:06 Protonix Iv IV PUSH 40 mg QAM LYLE Administration Polyethylene Glycol 17 gm 05/26/19 16:33 05/30/19 08:06 Miralax PO 17 gm QAM LYLE Administration Radiology Results: ITS Impressions Venous Doppler Study 05/26/19 11:58 IMPRESSION: 1. No lower extremity deep venous thrombosis bilaterally. Renal Ultrasound 05/26/19 16:19 IMPRESSION: 1. Cholelithiasis. 2. Mild increased bilateral renal cortical echogenicity consistent with medical renal disease. No hydronephrosis. 3. Hepatic and pancreatic cysts. Upper Quadrant Ultrasound 05/26/19 16:19
--- NOTE | 2019-05-30 16:50 | PCOTNOTE ---
The patient treatment was not able to be completed on 05/30/19
[2019-05-30 22:00] VITALS: BP 149/85; PULSE 99; RESP 16; TEMP 36.4; O2SAT 99
[2019-05-31 04:33] VITALS: BP 153/77; PULSE 98; RESP 15; TEMP 36.4; O2SAT 98
[2019-05-31] MEDS: metroNIDAZOLE 250 MG TABLET 500 MG PO ×3 (05:15→22:31)
[2019-05-31] MEDS: AZTREONAM 1 GM in DEXTROSE 5% IN WATER 50 ML IVPB ×2 (05:15→14:12)
[2019-05-31 06:07] LABS: Hematocrit 27.6 % (37.0-47.0); Hemoglobin 8.6 g/dL (12.0-15.0); Immature Platelet Fraction Pct 6.3 % (0.9-11.2); Mean Corpuscular HGB Conc 31.2 g/dl (32-36); Mean Corpuscular Hemoglobin 30.4 pg (26-34); Mean Corpuscular Volume 97.5 fl (80-100); Mean Platelet Volume 12.4 fl (7.4-10.4); Platelet Count Result 58 k/mm3 (150-375); Red Blood Count 2.83 M/mm3 (4.2-5.4); Red Cell Distribution Width 16.8 % (11.5-14.5); White Blood Count 6.1 K/mm3 (4.5-10.0)
[2019-05-31 06:20] LABS: Blood Urea Nitrogen 34 mg/dL (7-17); CRP 3.8 mg/dL (<1.0); Calcium 8.6 mg/dL (8.4-10.2); Carbon Dioxide 19 mmol/L (22-30); Chloride 102 mmol/L (98-107); Estimated CRCL calculation 16 ml/min; Estimated Glomerular Filt Rate 19; Glucose 87 mg/dL (65-105); Potassium 4.3 mmol/L (3.4-5.0); Sodium 131 mmol/L (137-145)
--- NOTE | 2019-05-31 07:14 | WPDGIPROGNO ---
Progress Note: A&P Additional Plan Patient comfortable this morning. Reports she had emesis yesterday. Now on a liquid diet. Appears to be tolerating this adequately. She denies any recurrent flank pain denies abdominal pain in general. Physical exam reveals her to be alert. Vital signs stable. She is anicteric. Lungs are clear. Abdomen is soft and nontender. Impression 1. Diverticulitis. With pericolonic abscesses. Surgery following. Now on antibiotics for a 2nd course. Eventual sigmoid resection may be required. \ 2. Resolved right flank pain. Etiology unclear asymptomatic cholelithiasis identified. 3. Gastric ulcer. Stable on PPI. 4. Thrombocytopenia. Followed by a hematology 5. Chronic kidney disease. Followed by renal service. Subjective Date/time seen: 05/31/19 07:14 Objective Data Vital Signs Vital Signs: Vital Signs - 24 hr 05/30/19 14:00 05/30/19 22:00 05/31/19 04:33 Temperature 36.4 C 36.4 C 36.4 C L Pulse Rate 84 99 98 Respiratory Rate 20 16 15 Blood Pressure 149/76 H 149/85 H 153/77 H Pulse Oximetry 100 99 98 Intake/Output Intake/Output: Intake & Output 05/28/19 05/29/19 05/30/19 05/31/19 23:59 23:59 23:59 23:59 Intake Total 3369 2090 2035 300 Output Total 400 450 600 175 Balance 2969 1640 1435 125 Meds/Results Medications: Active Medications Generic Name Dose Route Start Last Admin Trade Name Freq PRN Reason Stop Dose Admin Epoetin Nixon 10,000 units 05/26/19 17:10 05/28/19 17:29 Epogen SUB-Q 10,000 units MOWEFR LYLE Administration Hydromorphone HCl 0.5 mg 05/26/19 10:48 Dilaudid Inj IV PUSH Q8H PRN Pain Rated 7-10 Aztreonam 1 gm/ Dextrose 50 mls @ 100 mls/hr 05/26/19 14:00 05/31/19 05:15 IVPB 100 mls/hr Q12H LYLE Administration Metronidazole 500 mg 05/28/19 15:35 05/31/19 05:15 Flagyl PO 500 mg Q8HR LYLE Administration Pantoprazole Sodium 40 mg 05/27/19 09:00 05/30/19 08:06 Protonix Iv IV PUSH 40 mg QAM LYLE Administration Polyethylene Glycol 17 gm 05/26/19 16:33 05/30/19 08:06 Miralax PO 17 gm QAM LYLE Administration Radiology Results: ITS Impressions Venous Doppler Study 05/26/19 11:58 IMPRESSION: 1. No lower extremity deep venous thrombosis bilaterally. Renal Ultrasound 05/26/19 16:19 IMPRESSION: 1. Cholelithiasis. 2. Mild increased bilateral renal cortical echogenicity consistent with medical renal disease. No hydronephrosis. 3. Hepatic and pancreatic cysts. Upper Quadrant Ultrasound 05/26/19 16:19 IMPRESSION: 1. Cholelithiasis. 2. Mild increased bilateral renal cortical echogenicity consistent with medical renal disease. No hydronephrosis. 3. Hepatic and pancreatic cysts. Hepatobiliary Scan Nuclear Medicine 05/27/19 16:11 Impression: 1: Normal hepatobiliary scan. Abdomen X-Ray 05/30/19 13:24 IMPRESSION: 1. Nonobstructive bowel gas pattern. Labs Labs: Laboratory Results - last 24 hr 05/31/19 05/31/19 05:40 05:40 WBC 6.1 RBC 2.83 L Hgb 8.6 L Hct 27.6 L MCV 97.5 MCH 30.4 MCHC 31.2 L RDW 16.8 H Plt Count 58 L MPV 12.4 H % Immature Plt Fraction 6.3 Sodium 131 L Potassium 4.3 Chloride 102 Carbon Dioxide 19 L BUN 34 H Creatinine 2.50 H Estim Creat Clear Calc 16 Estimated GFR 19 L Glucose 87 Calcium 8.6 C-Reactive Protein 3.8 H
[2019-05-31 09:44] VITALS: PULSE 94; RESP 16; O2SAT 98
[2019-05-31] MEDS: polyethylene glycoL 3350 17 GM POWD.PACK PO (09:44)
[2019-05-31] MEDS: PANTOPRAZOLE SODIUM IV 40 MG VIAL IV PUSH (09:44)
--- NOTE | 2019-05-31 10:22 | PCDIET ---
Nutrition Follow-Up Complete: Altered GI function relating to diverticulitis dx as evidenced by abdonminal pain and PMHx of diverticulitis. Pt will tolerate diet once advanced. Goal partially met. Pt tolerated low-fat diet but started vomiting. Pt current nutrition is: Clear liquid with Ensure Clear BID Nutrition recommendation: Recommend continuation of Clear Liquid diet and Ensure Clear until advancement of diet is medically appropriate, per MD orders. Last recorded weight is 70.1 kg. Bowel Motility:+BM 05/31 Labs Reviewed:CRP(3.8), Na(131) K(4.3), GFR(19), BUN(34), Cr(2.5), Glu(87) Meds Noted:Dilaudid, protonix, miralax (on 05/30), Additional Notes: Pt states episode of vomiting 05/30 prompted switch to clear liquid diet. Said she had tolerated the diet fairly well until that point. Was unable to finish her chicken one night but able to eat the chips, fruit and dessert. Not currently feeling abdominal pain or N/V. Tolerating liquids well. Additionally says dentures do not fit well anymore, she suspects it is due to weight loss. Said daughter called her dentist to fix the issue. Noted that edema is present and nephrology is following pt. Will monitor labs and intake. Follow up in 3 days.
--- NOTE | 2019-05-31 13:17 | P.PNNP_ITS ---
Progress Note: A&P Assessment and Plan (1) Chronic kidney disease, stage 4 (severe): Code(s): N18.4 - Chronic kidney disease, stage 4 (severe) Status: Chronic Assessment and Plan: * stable if not better than baseline * baseline creatinine runs ~ 2.5 - 3.0mg/dl in the last year or so * due to hypertension and vascular disease * continue supportive therapy (2) Diverticulitis of large intestine with perforation and abscess with bleeding: Code(s): K57.21 - Diverticulitis of large intestine with perforation and abscess with bleeding Status: Acute Assessment and Plan: * as noted by imaging studies to date * General Surgery and Infectious Disease following * on antibiotics as outlined * not opposed to PRN diuretics for edema if needed * continue current therapy (3) Hypertension: Qualifiers: Hypertension type: essential hypertension Qualified Code(s): I10 - Essential (primary) hypertension Code(s): I10 - Essential (primary) hypertension Status: Chronic Assessment and Plan: * reasonable control at this time * follow trend of hemodynamics * BP medications adjustments as deemed necessary (4) Hyponatremia: Code(s): E87.1 - Hypo-osmolality and hyponatremia Status: Acute Assessment and Plan: * mainly due to renal dysfunction * relatively stable * follow trend (5) Chronic anemia: Code(s): D64.9 - Anemia, unspecified Status: Acute Assessment and Plan: * multifactorial etiology: - previous JINA - known CKD - acute illness/inflammation - blood loss? * on Epogen (gets as an outpatient as well) Will continue to follow. Subjective Date/time seen: 05/31/19 13:17 Appears to be doling reasonably well; tolerating oral intake at the time of my visit; no apparent distress voiced. Exam Narrative: Exam Narrative: General: WD/WN female in NAD Heart: normal S1 and S2; no rub Lungs: clear to auscultation Abdomen: soft, nontender, nondistended, positive bowel sounds Extremities: no cyanosis or clubbing; trace - 1+ edema Skin: warm and intact Objective Data Vital Signs Vital Signs: Vital Signs Temp Pulse Resp BP Pulse Ox 05/31/19 09:44 94 16 98 05/31/19 04:33 36.4 C L 98 15 153/77 H 98 05/30/19 22:00 36.4 C 99 16 149/85 H 99 05/30/19 14:00 36.4 C 84 20 149/76 H 100 Intake/Output Intake/Output: Intake & Output 05/28/19 05/29/19 05/30/19 05/31/19 23:59 23:59 23:59 23:59 Intake Total 3369 0 2035 540 Output Total 400 450 600 375 Balance 2969 1640 1435 165 Meds/Results Medications: Active Medications Generic Name Dose Route Start Last Admin Trade Name Freq PRN Reason Stop Dose Admin Epoetin Nixon 10,000 units 05/26/19 17:10 05/28/19 17:29 Epogen SUB-Q 10,000 units MOWEFR LYLE Administration Hydromorphone HCl 0.5 mg 05/26/19 10:48 Dilaudid Inj IV PUSH Q8H PRN Pain Rated 7-10 Aztreonam 1 gm/ Dextrose 50 mls @ 100 mls/hr 05/26/19 14:00 05/31/19 05:15 IVPB 100 mls/hr Q12H LYLE Administration Metronidazole 500 mg 05/28/19 15:35 05/31/19 05:15 Flagyl PO 500 mg Q8HR LYLE Administration
--- NOTE | 2019-05-31 13:17 | PM.PNNEP ---
Progress Note: A&P Assessment and Plan (1) Chronic kidney disease, stage 4 (severe): Code(s): N18.4 - Chronic kidney disease, stage 4 (severe) Status: Chronic Assessment and Plan: stable if not better than baseline baseline creatinine runs ~ 2.5 - 3.0mg/dl in the last year or so due to hypertension and vascular disease continue supportive therapy (2) Diverticulitis of large intestine with perforation and abscess with bleeding: Code(s): K57.21 - Diverticulitis of large intestine with perforation and abscess with bleeding Status: Acute Assessment and Plan: as noted by imaging studies to date General Surgery and Infectious Disease following on antibiotics as outlined not opposed to PRN diuretics for edema if needed continue current therapy (3) Hypertension: Qualifiers: Hypertension type: essential hypertension Qualified Code(s): I10 - Essential (primary) hypertension Code(s): I10 - Essential (primary) hypertension Status: Chronic Assessment and Plan: reasonable control at this time follow trend of hemodynamics BP medications adjustments as deemed necessary (4) Hyponatremia: Code(s): E87.1 - Hypo-osmolality and hyponatremia Status: Acute Assessment and Plan: mainly due to renal dysfunction relatively stable follow trend (5) Chronic anemia: Code(s): D64.9 - Anemia, unspecified Status: Acute Assessment and Plan: multifactorial etiology: - previous JINA - known CKD - acute illness/inflammation - blood loss? on Epogen (gets as an outpatient as well) Will continue to follow. Subjective Date/time seen: 05/31/19 13:17 Appears to be doling reasonably well; tolerating oral intake at the time of my visit; no apparent distress voiced. Exam Narrative: Exam Narrative: General: WD/WN female in NAD Heart: normal S1 and S2; no rub Lungs: clear to auscultation Abdomen: soft, nontender, nondistended, positive bowel sounds Extremities: no cyanosis or clubbing; trace - 1+ edema Skin: warm and intact Objective Data Vital Signs Vital Signs: Vital Signs Temp Pulse Resp BP Pulse Ox 05/31/19 09:44 94 16 98 05/31/19 04:33 36.4 C L 98 15 153/77 H 98 05/30/19 22:00 36.4 C 99 16 149/85 H 99 05/30/19 14:00 36.4 C 84 20 149/76 H 100 Intake/Output Intake/Output: Intake & Output 05/28/19 05/29/19 05/30/19 05/31/19 23:59 23:59 23:59 23:59 Intake Total 3369 2090 2035 540 Output Total 400 450 600 375 Balance 2969 1640 1435 165 Meds/Results Medications: Active Medications Generic Name Dose Route Start Last Admin Trade Name Freq PRN Reason Stop Dose Admin Epoetin Nixon 10,000 units 05/26/19 17:10 05/28/19 17:29 Epogen SUB-Q 10,000 units MOWEFR LYLE Administration Hydromorphone HCl 0.5 mg 05/26/19 10:48 Dilaudid Inj IV PUSH Q8H PRN Pain Rated 7-10 Aztreonam 1 gm/ Dextrose 50 mls @ 100 mls/hr 05/26/19 14:00 05/31/19 05:15 IVPB 100 mls/hr Q12H LYLE Administration Metronidazole 500 mg 05/28/19 15:35 05/31/19 05:15 Flagyl PO 500 mg Q8HR LYLE Administration Pantoprazole Sodium 40 mg 05/27/19 09:00 05/31/19 09:44 Protonix Iv IV PUSH 40 mg QAM LYLE Administration Polyethylene Glycol 17 gm 05/26/19 16:33 05/31/19 09:44 Miralax PO 17 gm QAM LYLE Administration Radiology Results: ITS Impressions Venous Doppler Study 05/26/19 11:58 IMPRESSION: 1. No lower extremity deep venous thrombosis bilaterally. Renal Ultrasound 05/26/19 16:19 IMPRESSION: 1. Cholelithiasis. 2. Mild increased bilateral renal cortical echogenicity consistent with medical renal disease. No hydronephrosis. 3. Hepatic and pancreatic cysts. Upper Quadrant Ultrasound 05/26/19 16:19
--- NOTE | 2019-05-31 13:29 | WPDINFPN2 ---
Progress Note: A&P Assessment and Plan (1) Diverticulitis of large intestine with perforation and abscess with bleeding: Code(s): K57.21 - Diverticulitis of large intestine with perforation and abscess with bleeding Status: Acute Assessment and Plan: 1. Diverticular abscesses, not worse by CT nor by signs/symptoms, but not resolved on CT either, raising the possibility of subtle perforation ongoing. 2. Multiple allergies 3. Lumbar back pain (her CC, NOT flank pain), I do not think that this is due to her diverticulitis REC Aztreonam and metronidazole #6. IV therapy through 06/04. Subjective Date/time seen: 05/31/19 13:29 Interval history: good appetite. Cramping prior to BM, otherwise no abd pain. LUE and LE edema, being addressed by other MDs Exam Narrative: Exam Narrative: afebrile Const: General: no acute distress Resp: Effort & Inspection: normal respiratory effort Auscultation: clear to auscultation bilaterally GI: Inspection: non-distended Objective Data Vital Signs Vital Signs: Vital Signs - 24 hr 05/30/19 14:00 05/30/19 22:00 05/31/19 04:33 Temperature 36.4 C 36.4 C 36.4 C L Pulse Rate 84 99 98 Respiratory Rate 20 16 15 Blood Pressure 149/76 H 149/85 H 153/77 H Pulse Oximetry 100 99 98 05/31/19 09:44 Temperature Pulse Rate 94 Respiratory Rate 16 Blood Pressure Pulse Oximetry 98 Intake/Output Intake/Output: Intake & Output 05/28/19 05/29/19 05/30/19 05/31/19 23:59 23:59 23:59 23:59 Intake Total 3369 2090 2035 540 Output Total 400 450 600 375 Balance 2969 1640 1435 165 Meds/Results Medications: Active Medications Generic Name Dose Route Start Last Admin Trade Name Freq PRN Reason Stop Dose Admin Epoetin Nixon 10,000 units 05/26/19 17:10 05/28/19 17:29 Epogen SUB-Q 10,000 units MOWEFR LYLE Administration Hydromorphone HCl 0.5 mg 05/26/19 10:48 Dilaudid Inj IV PUSH Q8H PRN Pain Rated 7-10 Aztreonam 1 gm/ Dextrose 50 mls @ 100 mls/hr 05/26/19 14:00 05/31/19 05:15 IVPB 100 mls/hr Q12H LYLE Administration Metronidazole 500 mg 05/28/19 15:35 05/31/19 05:15 Flagyl PO 500 mg Q8HR LYLE Administration Pantoprazole Sodium 40 mg 05/27/19 09:00 05/31/19 09:44 Protonix Iv IV PUSH 40 mg QAM LYLE Administration Polyethylene Glycol 17 gm 05/26/19 16:33 05/31/19 09:44 Miralax PO 17 gm QAM LYLE Administration Radiology Results: ITS Impressions Venous Doppler Study 05/26/19 11:58 IMPRESSION: 1. No lower extremity deep venous thrombosis bilaterally. Renal Ultrasound 05/26/19 16:19 IMPRESSION: 1. Cholelithiasis. 2. Mild increased bilateral renal cortical echogenicity consistent with medical renal disease. No hydronephrosis. 3. Hepatic and pancreatic cysts. Upper Quadrant Ultrasound 05/26/19 16:19 IMPRESSION: 1. Cholelithiasis. 2. Mild increased bilateral renal cortical echogenicity consistent with medical renal disease. No hydronephrosis. 3. Hepatic and pancreatic cysts. Hepatobiliary Scan Nuclear Medicine 05/27/19 16:11 Impression: 1: Normal hepatobiliary scan. Abdomen X-Ray 05/30/19 13:24 IMPRESSION: 1. Nonobstructive bowel gas pattern. Labs Labs: Laboratory Results - last 24 hr 05/31/19 05/31/19 05:40 05:40 WBC 6.1 RBC 2.83 L Hgb 8.6 L Hct 27.6 L MCV 97.5 MCH 30.4 MCHC 31.2 L RDW 16.8 H Plt Count 58 L MPV 12.4 H % Immature Plt Fraction 6.3 Sodium 131 L Potassium 4.3 Chloride 102 Carbon Dioxide 19 L BUN 34 H Creatinine 2.50 H Estim Creat Clear Calc 16 Estimated GFR 19 L Glucose 87 Calcium 8.6 C-Reactive Protein 3.8 H
--- NOTE | 2019-05-31 14:32 | PM.IMPN ---
Progress Note: A&P Assessment and Plan (1) Diverticulitis of large intestine with perforation and abscess with bleeding: Code(s): K57.21 - Diverticulitis of large intestine with perforation and abscess with bleeding Status: Acute Assessment and Plan: Continue metronidazole and aztreonam Plan is for extended course of antibx prior to definitive surgery. (2) Nausea & vomiting: Qualifiers: Vomiting type: unspecified Vomiting Intractability: unspecified Qualified Code(s): R11.2 - Nausea with vomiting, unspecified Code(s): R11.2 - Nausea with vomiting, unspecified Status: Acute Assessment and Plan: 05/30 felt better after emesis 05/30KUB unremarkable Perhaps simply ate too much 05/31 feeling much better Advancing diet as tolerated (3) Chronic kidney disease, stage 4 (severe): Code(s): N18.4 - Chronic kidney disease, stage 4 (severe) Status: Chronic Assessment and Plan: 05/28 creatinine 2.8, 05/30 2.4, 05/31 2.5 Continue to monitor (4) Hyponatremia: Code(s): E87.1 - Hypo-osmolality and hyponatremia Status: Acute Assessment and Plan: Stable. Monitor. (5) Hypertension: Qualifiers: Hypertension type: essential hypertension Qualified Code(s): I10 - Essential (primary) hypertension Code(s): I10 - Essential (primary) hypertension Status: Chronic Assessment and Plan: Chronic and stable (6) Gastric ulcer: Qualifiers: Gastric ulcer chronicity: chronic Gastric ulcer complication status: without hemorrhage or perforation Qualified Code(s): K25.7 - Chronic gastric ulcer without hemorrhage or perforation Code(s): K25.9 - Gastric ulcer, unspecified as acute or chronic, without hemorrhage or perforation Status: Acute Assessment and Plan: noted on recent EGD. Continue protonix. (7) Chronic anemia: Code(s): D64.9 - Anemia, unspecified Status: Acute Assessment and Plan: Stable. Monitor. (8) Breast cancer: Qualifiers: Breast location: unspecified site of breast Estrogen receptor status: unspecified Patient sex: female Laterality: unspecified laterality Qualified Code(s): C50.919 - Malignant neoplasm of unspecified site of unspecified female breast Code(s): C50.919 - Malignant neoplasm of unspecified site of unspecified female breast Status: Acute Assessment and Plan: History of breast cancer, currently pt has thrombocytopenia DR Telles SCD ordered for DVT prophylaxis (9) Edema: Qualifiers: Edema type: unspecified Qualified Code(s): R60.9 - Edema, unspecified Code(s): R60.9 - Edema, unspecified Status: Acute Assessment and Plan: Venous dopplers negative. ARTURO [employer] SCDs Subjective Date/time seen: 05/31/19 14:32 Interval history: Tolerated first few bites of pudding. No cp or sob. Moderate LE edema (worse than her usual chronic edema). No bleeding. No abdominal pain or diarrhea. No n/v. Review of Systems Review of Systems: All systems reviewed & are unremarkable except as noted in HPI and below Exam Narrative: Exam Narrative: HEENT: EOMI, PERRL, pharyngeal mucosa pink and intact NECK: No JVD CHEST: Clear to auscultation. Normal effort. HEART: NL S1/S2, regular, 3/6 PAYAL ABDOMEN: BS+, soft, nontender, no mass, no bruits EXTREMITIES: No cyanosis, 3+ bilateral lissette edema with some pitting NEUROLOGIC: CN intact and symmetric to inspection. MUSCULOSKELETAL: Tone and strength symmetric. PSYCH: Alert. Oriented to person, place, and time. Objective Data Vital Signs Vital Signs: Vital Signs - 24 hr 05/30/19 22:00 05/31/19 04:33 05/31/19 09:44 Temperature 97.6 F 97.5 F L Pulse Rate 99 98 94 Respiratory Rate 16 15 16 Blood Pressure 149/85 H 153/77 H Pulse Oximetry 99 98 98 Intake/Output Intake/Output: Intake & Output 05/28/19 05/29/19 05/30/19 05/31/19 23:59 23:59 23:5
--- NOTE | 2019-05-31 14:44 | PCNSR ---
On 05/31/19, the student, Guadalupe Martines, provided care and completed [facility] documentation on this patient. I have reviewed the student's documentation and agree with the findings.
--- NOTE | 2019-05-31 14:49 | PM.PNGS ---
Progress Note: A&P Assessment and Plan (1) Diverticulitis of large intestine with perforation and abscess with bleeding: Code(s): K57.21 - Diverticulitis of large intestine with perforation and abscess with bleeding Status: Acute Assessment and Plan: Continue IV antibiotics per ID Eventual sigmoid resection, which has been discussed with patient and family (2) Pancytopenia: Code(s): D61.818 - Other pancytopenia Status: Chronic (3) Nausea & vomiting: Qualifiers: Vomiting type: unspecified Vomiting Intractability: unspecified Qualified Code(s): R11.2 - Nausea with vomiting, unspecified Code(s): R11.2 - Nausea with vomiting, unspecified Status: Acute Assessment and Plan: Seems to be improving. Advanced to full liquids today. Continue to advance as tolerated. Patient relates this to her improperly fitted dentures. Abdominal x-ray yesterday showed normal bowel gas pattern. Additional Plan Discussed the patient's case and plan of care with Dr. Lerner today. Subjective Subjective Date/Time Seen: 05/31/19 13:49 Patient reports: no new complaints and feels better Interval history: Patient seen and examined today. Denies any abdominal or flank pain. Tolerating liquids well without nausea, vomiting, or bloating. Reports lower extremity swelling today that has worsened in the past 24 hours. No other complaints at this time. Patient reports she believes the dry heaving was due to her dentures not fitting. She has lost a significant amount of weight and they do not currently fit properly and she feels that is what is causing her to dry heave. Review of Systems Review of Systems: All systems reviewed & are unremarkable except as noted in HPI and below Exam Const: General: comfortable, no acute distress, alert and awake GI: Inspection: other (mildly distended) GI Palp: Yes abdominal tenderness (LUQ), Yes Soft to palpation, No Guarding due to palpation present (GI) and No Rebound tenderness present Auscultation: normal bowel sounds Rectal Exam: deferred Skin: General skin exam: normal color Extrem: General: edema bilateral (lower extremities pitting edema) Psych: Mental Status: mental status grossly normal Attitude: cooperative Objective Data Vital Signs Vital Signs: Vital Signs - 24 hr 05/30/19 22:00 05/31/19 04:33 05/31/19 09:44 Temperature 36.4 C 36.4 C L Pulse Rate 99 98 94 Respiratory Rate 16 15 16 Blood Pressure 149/85 H 153/77 H Pulse Oximetry 99 98 98 Intake/Output Intake/Output: Intake & Output 05/28/19 05/29/19 05/30/19 05/31/19 23:59 23:59 23:59 23:59 Intake Total 3369 2090 2035 830 Output Total 400 450 600 375 Balance 2969 1640 1435 455 Meds/Results Medications: Active Medications Generic Name Dose Route Start Last Admin Trade Name Freq PRN Reason Stop Dose Admin Epoetin Nixon 10,000 units 05/26/19 17:10 05/28/19 17:29 Epogen SUB-Q 10,000 units MOWEFR LYLE Administration Hydromorphone HCl 0.5 mg 05/26/19 10:48 Dilaudid Inj IV PUSH Q8H PRN Pain Rated 7-10 Aztreonam 1 gm/ Dextrose 50 mls @ 100 mls/hr 05/26/19 14:00 05/31/19 14:12 IVPB 100 mls/hr Q12H LYLE Administration Metronidazole 500 mg 05/28/19 15:35 05/31/19 14:13 Flagyl PO 500 mg Q8HR LYLE Administration Montelukast Sodium 10 mg 05/31/19 21:00 Singulair PO HS LYLE Pantoprazole Sodium 40 mg 05/27/19 09:00 05/31/19 09:44 Protonix Iv IV PUSH 40 mg QAM LYLE Administration Polyethylene Glycol 17 gm 05/26/19 16:33 05/31/19 09:44 Miralax PO 17 gm QAM LYLE Administration Radiology Results: ITS Impressions Venous Doppler Study 05/26/19 11:58 IMPRESSION: 1. No lower extremity deep venous thrombosis bilaterally. Renal Ultrasound 05/26/19 16:19 IMPRESSION: 1. Cholelithiasis. 2. Mild increased bilateral renal cortical echogenicity consistent with medical renal disease. No hydron
[2019-05-31 15:05] VITALS: BP 146/83; PULSE 97; RESP 16; TEMP 36.2; O2SAT 99
[2019-05-31] MEDS: EPOETIN ALFA 10,000 UNITS/ML VIAL 10000 UNITS SUB-Q (18:03)
[2019-05-31 20:00] VITALS: PULSE 102; RESP 16; O2SAT 98
[2019-05-31 22:00] VITALS: BP 165/88; PULSE 102; RESP 16; TEMP 36.8; O2SAT 98
[2019-05-31] MEDS: MONTELUKAST SODIUM 10 MG TABLET PO (22:31)
[2019-06-01] MEDS: AZTREONAM 1 GM in DEXTROSE 5% IN WATER 50 ML IVPB ×2 (01:38→16:48)
[2019-06-01 06:00] VITALS: BP 149/79; PULSE 98; RESP 16; TEMP 36.6; O2SAT 98
[2019-06-01] MEDS: metroNIDAZOLE 250 MG TABLET 500 MG PO ×3 (06:22→21:37)
[2019-06-01 06:34] LABS: Hematocrit 26.9 % (37.0-47.0); Hemoglobin 8.4 g/dL (12.0-15.0); Mean Corpuscular HGB Conc 31.2 g/dl (32-36); Mean Corpuscular Hemoglobin 30.8 pg (26-34); Mean Corpuscular Volume 98.5 fl (80-100); Mean Platelet Volume 12.2 fl (7.4-10.4); Platelet Count Result 64 k/mm3 (150-375); Red Blood Count 2.73 M/mm3 (4.2-5.4); White Blood Count 5.5 K/mm3 (4.5-10.0)
[2019-06-01 06:44] LABS: Blood Urea Nitrogen 32 mg/dL (7-17); Calcium 8.2 mg/dL (8.4-10.2); Carbon Dioxide 16 mmol/L (22-30); Chloride 102 mmol/L (98-107); Estimated CRCL calculation 18 ml/min; Estimated Glomerular Filt Rate 22; Glucose 82 mg/dL (65-105); Potassium 3.9 mmol/L (3.4-5.0); Sodium 130 mmol/L (137-145)
[2019-06-01] MEDS: PANTOPRAZOLE SODIUM IV 40 MG VIAL IV PUSH (08:02)
[2019-06-01] MEDS: polyethylene glycoL 3350 17 GM POWD.PACK PO (08:02)
--- NOTE | 2019-06-01 10:41 | WPDGIPROGNO ---
Progress Note: A&P Additional Plan Patient comfortable this morning. Brief nausea this morning reported. She denies any residual abdominal pain. Physical exam she is afebrile. Anicteric. Lungs are clear. Abdomen is soft. Point tenderness across right ribcage evident. No abdominal masses nor organomegaly noted. Impression 1. Diverticulitis with pericolonic abscesses. Now on antibiotics under Dr. Carballo's direction. Surgical resection in the future anticipated. 2. Cholelithiasis. [place] to be asymptomatic. 3. Resolved right flank pain. 4. Chronic kidney disease. 5e. Nausea resolving. [place] to be multifactorial , perhaps related to azotemia or medications. 6. Gastric ulcer. Currently asymptomatic on PPI therapy. 7. Thrombocytopenia. Followed by Dr. Telles, hematology at [facility] 8. History of breast cancer. Subjective Date/time seen: 06/01/19 10:41 Objective Data Vital Signs Vital Signs: Vital Signs - 24 hr 05/31/19 15:05 05/31/19 20:00 05/31/19 22:00 Temperature 36.2 C L 36.8 C Pulse Rate 97 102 H 102 H Respiratory Rate 16 16 16 Blood Pressure 146/83 H 165/88 H Pulse Oximetry 99 98 98 06/01/19 06:00 Temperature 36.6 C Pulse Rate 98 Respiratory Rate 16 Blood Pressure 149/79 H Pulse Oximetry 98 Intake/Output Intake/Output: Intake & Output 05/29/19 05/30/19 05/31/19 06/01/19 23:59 23:59 23:59 23:59 Intake Total 2090 2035 1360 660 Output Total 670 826 9183 100 Balance 1640 1435 335 560 Meds/Results Medications: Active Medications Generic Name Dose Route Start Last Admin Trade Name Freq PRN Reason Stop Dose Admin Epoetin Nixon 10,000 units 05/26/19 17:10 05/31/19 18:03 Epogen SUB-Q 10,000 units MOWEFR LYLE Administration Hydromorphone HCl 0.5 mg 05/26/19 10:48 Dilaudid Inj IV PUSH Q8H PRN Pain Rated 7-10 Aztreonam 1 gm/ Dextrose 50 mls @ 100 mls/hr 05/26/19 14:00 06/01/19 02:08 IVPB Infused Q12H LYLE Infusion Metronidazole 500 mg 05/28/19 15:35 06/01/19 06:22 Flagyl PO 500 mg Q8HR LYLE Administration Montelukast Sodium 10 mg 05/31/19 21:00 05/31/19 22:31 Singulair PO 10 mg HS LYLE Administration Pantoprazole Sodium 40 mg 05/27/19 09:00 06/01/19 08:02 Protonix Iv IV PUSH 40 mg QAM LYLE Administration Polyethylene Glycol 17 gm 05/26/19 16:33 06/01/19 08:02 Miralax PO 17 gm QAM LYLE Administration Radiology Results: ITS Impressions Venous Doppler Study 05/26/19 11:58 IMPRESSION: 1. No lower extremity deep venous thrombosis bilaterally. Renal Ultrasound 05/26/19 16:19 IMPRESSION: 1. Cholelithiasis. 2. Mild increased bilateral renal cortical echogenicity consistent with medical renal disease. No hydronephrosis. 3. Hepatic and pancreatic cysts. Upper Quadrant Ultrasound 05/26/19 16:19 IMPRESSION: 1. Cholelithiasis. 2. Mild increased bilateral renal cortical echogenicity consistent with medical renal disease. No hydronephrosis. 3. Hepatic and pancreatic cysts. Hepatobiliary Scan Nuclear Medicine 05/27/19 16:11 Impression: 1: Normal hepatobiliary scan. Abdomen X-Ray 05/30/19 13:24 IMPRESSION: 1. Nonobstructive bowel gas pattern. Labs Labs: Laboratory Results - last 24 hr 06/01/19 06/01/19 06:10 06:10 WBC 5.5 RBC 2.73 L Hgb 8.4 L Hct 26.9 L MCV 98.5 MCH 30.8 MCHC 31.2 L RDW 17.0 H Plt Count 64 L MPV 12.2 H Sodium 130 L Potassium 3.9 Chloride 102 Carbon Dioxide 16 L BUN 32 H Creatinine 2.20 H Estim Creat Clear Calc 18 Estimated GFR 22 L Glucose 82 Calcium 8.2 L
--- NOTE | 2019-06-01 11:24 | P.PNNP_ITS ---
Progress Note: A&P Assessment and Plan (1) Chronic kidney disease, stage 4 (severe): Code(s): N18.4 - Chronic kidney disease, stage 4 (severe) Status: Chronic Assessment and Plan: * stable if not better than baseline - better creatinine likely a manifestation of decreased muscle mass and bee bound status * baseline creatinine runs ~ 2.5 - 3.0mg/dl in the last year or so * due to hypertension and vascular disease * not opposed to PRN diuretics for edema if needed * continue supportive therapy (2) Diverticulitis of large intestine with perforation and abscess with bleeding: Code(s): K57.21 - Diverticulitis of large intestine with perforation and abscess with bleeding Status: Acute Assessment and Plan: * as noted by imaging studies to date * General Surgery and Infectious Disease following - antibiotics for 3 more days - eventually surgery for definitive treatment * continue current therapy (3) Hypertension: Qualifiers: Hypertension type: essential hypertension Qualified Code(s): I10 - Essential (primary) hypertension Code(s): I10 - Essential (primary) hypertension Status: Chronic Assessment and Plan: * reasonable control at this time * follow trend of hemodynamics * BP medications adjustments as deemed necessary (4) Hyponatremia: Code(s): E87.1 - Hypo-osmolality and hyponatremia Status: Acute Assessment and Plan: * mainly due to renal dysfunction * relatively stable * follow trend (5) Chronic anemia: Code(s): D64.9 - Anemia, unspecified Status: Acute Assessment and Plan: * multifactorial etiology: - previous JINA - known CKD - acute illness/inflammation - blood loss? * on Epogen (gets as an outpatient as well) Will continue to follow. Subjective Date/time seen: 06/01/19 11:24 Continues to slowly be increasing her diet as tolerated; has noted some wors ening of her chronic LE edema; no other acute issues or problems voiced at this time. Exam Narrative: Exam Narrative: General: WD/WN female in NAD Heart: normal S1 and S2; no rub Lungs: clear to auscultation Abdomen: soft, nontender, nondistended, positive bowel sounds Extremities: no cyanosis or clubbing; trace - 1+ edema Skin: no rash Objective Data Vital Signs Vital Signs: Vital Signs Temp Pulse Resp BP Pulse Ox 06/01/19 06:00 36.6 C 98 16 149/79 H 98 05/31/19 22:00 36.8 C 102 H 16 165/88 H 98 05/31/19 20:00 102 H 16 98 05/31/19 15:05 36.2 C L 97 16 146/83 H 99 Intake/Output Intake/Output: Intake & Output 05/29/19 05/30/19 05/31/19 06/01/19 23:59 23:59 23:59 23:59 Intake Total 2090 2035 1360 660 Output Total 465 510 6139 100 Balance 1640 1435 335 560 Meds/Results Medications: Active Medications Generic Name Dose Route Start Last Admin Trade Name Freq PRN Reason Stop Dose Admin Epoetin Nixon 10,000 units 05/26/19 17:10 05/31/19 18:03 Epogen SUB-Q 10,000 units MOWEFR LYLE Administration Hydromorphone HCl 0.5 mg 05/26/19 10:48 Dilaudid Inj IV PUSH Q8H PRN Pain Rated 7-10 Aztreonam 1 gm/ Dextrose 50 mls @ 100 mls/hr 05/26/19 14:00 02
--- NOTE | 2019-06-01 11:24 | PM.PNNEP ---
Progress Note: A&P Assessment and Plan (1) Chronic kidney disease, stage 4 (severe): Code(s): N18.4 - Chronic kidney disease, stage 4 (severe) Status: Chronic Assessment and Plan: stable if not better than baseline - better creatinine likely a manifestation of decreased muscle mass and bee bound status baseline creatinine runs ~ 2.5 - 3.0mg/dl in the last year or so due to hypertension and vascular disease not opposed to PRN diuretics for edema if needed continue supportive therapy (2) Diverticulitis of large intestine with perforation and abscess with bleeding: Code(s): K57.21 - Diverticulitis of large intestine with perforation and abscess with bleeding Status: Acute Assessment and Plan: as noted by imaging studies to date General Surgery and Infectious Disease following - antibiotics for 3 more days - eventually surgery for definitive treatment continue current therapy (3) Hypertension: Qualifiers: Hypertension type: essential hypertension Qualified Code(s): I10 - Essential (primary) hypertension Code(s): I10 - Essential (primary) hypertension Status: Chronic Assessment and Plan: reasonable control at this time follow trend of hemodynamics BP medications adjustments as deemed necessary (4) Hyponatremia: Code(s): E87.1 - Hypo-osmolality and hyponatremia Status: Acute Assessment and Plan: mainly due to renal dysfunction relatively stable follow trend (5) Chronic anemia: Code(s): D64.9 - Anemia, unspecified Status: Acute Assessment and Plan: multifactorial etiology: - previous JINA - known CKD - acute illness/inflammation - blood loss? on Epogen (gets as an outpatient as well) Will continue to follow. Subjective Date/time seen: 06/01/19 11:24 Continues to slowly be increasing her diet as tolerated; has noted some worsening of her chronic LE edema; no other acute issues or problems voiced at this time. Exam Narrative: Exam Narrative: General: WD/WN female in NAD Heart: normal S1 and S2; no rub Lungs: clear to auscultation Abdomen: soft, nontender, nondistended, positive bowel sounds Extremities: no cyanosis or clubbing; trace - 1+ edema Skin: no rash Objective Data Vital Signs Vital Signs: Vital Signs Temp Pulse Resp BP Pulse Ox 06/01/19 06:00 36.6 C 98 16 149/79 H 98 05/31/19 22:00 36.8 C 102 H 16 165/88 H 98 05/31/19 20:00 102 H 16 98 05/31/19 15:05 36.2 C L 97 16 146/83 H 99 Intake/Output Intake/Output: Intake & Output 05/29/19 05/30/19 05/31/19 06/01/19 23:59 23:59 23:59 23:59 Intake Total 2090 2035 1360 660 Output Total 218 775 9660 100 Balance 1640 1435 335 560 Meds/Results Medications: Active Medications Generic Name Dose Route Start Last Admin Trade Name Freq PRN Reason Stop Dose Admin Epoetin Nixon 10,000 units 05/26/19 17:10 05/31/19 18:03 Epogen SUB-Q 10,000 units MOWEFR LYLE Administration Hydromorphone HCl 0.5 mg 05/26/19 10:48 Dilaudid Inj IV PUSH Q8H PRN Pain Rated 7-10 Aztreonam 1 gm/ Dextrose 50 mls @ 100 mls/hr 05/26/19 14:00 06/01/19 02:08 IVPB Infused Q12H LYLE Infusion Metronidazole 500 mg 05/28/19 15:35 06/01/19 06:22 Flagyl PO 500 mg Q8HR LYLE Administration Montelukast Sodium 10 mg 05/31/19 21:00 05/31/19 22:31 Singulair PO 10 mg HS LYLE Administration Pantoprazole Sodium 40 mg 05/27/19 09:00 06/01/19 08:02 Protonix Iv IV PUSH 40 mg QAM LYLE Administration Polyethylene Glycol 17 gm 05/26/19 16:33 06/01/19 08:02 Miralax PO 17 gm QAM LYLE Administration Radiology Results: ITS Impressions Venous Doppler Study 05/26/19 11:58 IMPRESSION: 1. No lower extremity deep venous thrombosis bilaterally. Renal Ultrasound 05/26/19 16:19 IMPRESSION: 1. Cholelithiasis
--- NOTE | 2019-06-01 12:32 | PM.PNGS ---
Progress Note: A&P Assessment and Plan (1) Diverticulitis of large intestine with perforation and abscess with bleeding: Code(s): K57.21 - Diverticulitis of large intestine with perforation and abscess with bleeding Status: Acute Assessment and Plan: Continue IV antibiotics per ID Advanced to low fiber diet. Continue this diet on discharge. Eventual sigmoid resection, which has been discussed with patient and family. Okay to discharge from a surgical standpoint when okay with all other services. She has a follow-up appointment scheduled with Dr. Lerner in [place] next week. (2) Pancytopenia: Code(s): D61.818 - Other pancytopenia Status: Chronic (3) Nausea & vomiting: Qualifiers: Vomiting type: unspecified Vomiting Intractability: unspecified Qualified Code(s): R11.2 - Nausea with vomiting, unspecified Code(s): R11.2 - Nausea with vomiting, unspecified Status: Acute Assessment and Plan: Possibly due to her misfitted dentures. Additional Plan Discussed the patient's case and plan of care with Dr. Lerner today. Subjective Subjective Date/Time Seen: 06/01/19 11:00 Patient reports: no new complaints Interval history: Patient seen and examined. No new complaints today. Bowels are moving. Reports lower extremity swelling has improved. Tolerating a low fiber diet. Denies nausea, vomiting, bloating, or abdominal/flank pain. Review of Systems Review of Systems: All systems reviewed & are unremarkable except as noted in HPI and below Exam Const: General: comfortable, no acute distress, alert and awake GI: Inspection: non-distended GI Palp: No abdominal tenderness, Yes Soft to palpation, No Guarding due to palpation present (GI), No Palpable mass present and No Rebound tenderness present Auscultation: normal bowel sounds Skin: General skin exam: normal color Neuro: General: no focal motor deficits Extrem: General: edema bilateral (lower extremities pitting edema, improved with LEON wraps) Psych: Mental Status: mental status grossly normal Attitude: cooperative Thought process: Normal thought process present Objective Data Vital Signs Vital Signs: Vital Signs - 24 hr 05/31/19 15:05 05/31/19 20:00 05/31/19 22:00 Temperature 36.2 C L 36.8 C Pulse Rate 97 102 H 102 H Respiratory Rate 16 16 16 Blood Pressure 146/83 H 165/88 H Pulse Oximetry 99 98 98 06/01/19 06:00 Temperature 36.6 C Pulse Rate 98 Respiratory Rate 16 Blood Pressure 149/79 H Pulse Oximetry 98 Intake/Output Intake/Output: Intake & Output 05/29/19 05/30/19 05/31/19 06/01/19 23:59 23:59 23:59 23:59 Intake Total 2090 2035 1360 660 Output Total 508 939 5677 100 Balance 1640 1435 335 560 Meds/Results Medications: Active Medications Generic Name Dose Route Start Last Admin Trade Name Freq PRN Reason Stop Dose Admin Epoetin Nixon 10,000 units 05/26/19 17:10 05/31/19 18:03 Epogen SUB-Q 10,000 units MOWEFR LYLE Administration Hydromorphone HCl 0.5 mg 05/26/19 10:48 Dilaudid Inj IV PUSH Q8H PRN Pain Rated 7-10 Aztreonam 1 gm/ Dextrose 50 mls @ 100 mls/hr 05/26/19 14:00 06/01/19 02:08 IVPB Infused Q12H LYLE Infusion Metronidazole 500 mg 05/28/19 15:35 06/01/19 06:22 Flagyl PO 500 mg Q8HR LYLE Administration Montelukast Sodium 10 mg 05/31/19 21:00 05/31/19 22:31 Singulair PO 10 mg HS LYLE Administration Pantoprazole Sodium 40 mg 05/27/19 09:00 06/01/19 08:02 Protonix Iv IV PUSH 40 mg QAM LYLE Administration Polyethylene Glycol 17 gm 05/26/19 16:33 06/01/19 08:02 Miralax PO 17 gm QAM LYLE Administration Radiology Results: ITS Impressions Venous Doppler Study 05/26/19 11:58 IMPRESSION: 1. No lower extremity deep venous thrombosis bilaterally. Renal Ultrasound 05/26/19 16:19 IMPRESSION: 1. Cholelithiasis. 2. Mild increased bilateral renal cortical echogenicity consist
--- NOTE | 2019-06-01 13:00 | WPDPN ---
Progress Note: A&P Assessment and Plan (1) Diverticulitis of large intestine with perforation and abscess with bleeding: Code(s): K57.21 - Diverticulitis of large intestine with perforation and abscess with bleeding Status: Acute Assessment and Plan: 1. Diverticular abscesses, not worse by CT nor by signs/symptoms, but not resolved on CT either, raising the possibility of subtle perforation ongoing. 2. Multiple allergies 3. Lumbar back pain (her CC, NOT flank pain), I do not think that this is due to her diverticulitis REC Aztreonam and metronidazole #7 / 10 days, then stop. If any Q of recurrence thereafter, she will need surgery. Sign off. Exam Narrative: Exam Narrative: afebrile Const: General: no acute distress Skin: General skin exam: normal color and no rashes or lesions noted Other: IV site normal Objective Data Vital Signs Vital Signs: Vital Signs - 24 hr 05/31/19 15:05 05/31/19 20:00 05/31/19 22:00 Temperature 36.2 C L 36.8 C Pulse Rate 97 102 H 102 H Respiratory Rate 16 16 16 Blood Pressure 146/83 H 165/88 H Pulse Oximetry 99 98 98 06/01/19 06:00 Temperature 36.6 C Pulse Rate 98 Respiratory Rate 16 Blood Pressure 149/79 H Pulse Oximetry 98 Intake/Output Intake/Output: Intake & Output 05/29/19 05/30/19 05/31/19 06/01/19 23:59 23:59 23:59 23:59 Intake Total 2090 2035 1360 660 Output Total 148 804 1894 300 Balance 1640 1435 335 360 Meds/Results Medications: Active Medications Generic Name Dose Route Start Last Admin Trade Name Freq PRN Reason Stop Dose Admin Epoetin Nixon 10,000 units 05/26/19 17:10 05/31/19 18:03 Epogen SUB-Q 10,000 units MOWEFR LYLE Administration Hydromorphone HCl 0.5 mg 05/26/19 10:48 Dilaudid Inj IV PUSH Q8H PRN Pain Rated 7-10 Aztreonam 1 gm/ Dextrose 50 mls @ 100 mls/hr 05/26/19 14:00 06/01/19 02:08 IVPB 06/04/19 23:59 Infused Q12H LYLE Infusion Metronidazole 500 mg 05/28/19 15:35 06/01/19 06:22 Flagyl PO 06/04/19 23:59 500 mg Q8HR LYLE Administration Montelukast Sodium 10 mg 05/31/19 21:00 05/31/19 22:31 Singulair PO 10 mg HS LYLE Administration Pantoprazole Sodium 40 mg 05/27/19 09:00 06/01/19 08:02 Protonix Iv IV PUSH 40 mg QAM LYLE Administration Polyethylene Glycol 17 gm 05/26/19 16:33 06/01/19 08:02 Miralax PO 17 gm QAM LYLE Administration Radiology Results: ITS Impressions Venous Doppler Study 05/26/19 11:58 IMPRESSION: 1. No lower extremity deep venous thrombosis bilaterally. Renal Ultrasound 05/26/19 16:19 IMPRESSION: 1. Cholelithiasis. 2. Mild increased bilateral renal cortical echogenicity consistent with medical renal disease. No hydronephrosis. 3. Hepatic and pancreatic cysts. Upper Quadrant Ultrasound 05/26/19 16:19 IMPRESSION: 1. Cholelithiasis. 2. Mild increased bilateral renal cortical echogenicity consistent with medical renal disease. No hydronephrosis. 3. Hepatic and pancreatic cysts. Hepatobiliary Scan Nuclear Medicine 05/27/19 16:11 Impression: 1: Normal hepatobiliary scan. Abdomen X-Ray 05/30/19 13:24 IMPRESSION: 1. Nonobstructive bowel gas pattern. Labs Labs: Laboratory Results - last 24 hr 06/01/19 06/01/19 06:10 06:10 WBC 5.5 RBC 2.73 L Hgb 8.4 L Hct 26.9 L MCV 98.5 MCH 30.8 MCHC 31.2 L RDW 17.0 H Plt Count 64 L MPV 12.2 H Sodium 130 L Potassium 3.9 Chloride 102 Carbon Dioxide 16 L BUN 32 H Creatinine 2.20 H Estim Creat Clear Calc 18 Estimated GFR 22 L Glucose 82 Calcium 8.2 L Quality VTE Prophylaxis VTE prophylaxis: mechanical ordered
[2019-06-01 14:00] VITALS: BP 151/90; PULSE 91; RESP 18; TEMP 36.2; O2SAT 100
--- NOTE | 2019-06-01 14:51 | PCOTNOTE ---
Attempted to see pt this pm. Pt was out of room for testing.
--- NOTE | 2019-06-01 15:34 | PM.IMPN ---
Progress Note: A&P Assessment and Plan (1) Diverticulitis of large intestine with perforation and abscess with bleeding: Code(s): K57.21 - Diverticulitis of large intestine with perforation and abscess with bleeding Status: Acute Assessment and Plan: Continue metronidazole and aztreonam Plan is for extended course of antibx prior to definitive surgery. Day 10/14 (2) Nausea & vomiting: Qualifiers: Vomiting type: unspecified Vomiting Intractability: unspecified Qualified Code(s): R11.2 - Nausea with vomiting, unspecified Code(s): R11.2 - Nausea with vomiting, unspecified Status: Acute Assessment and Plan: 05/30 felt better after emesis 05/30KUB unremarkable Perhaps simply ate too much 05/31 feeling much better Advancing diet as tolerated but did have emesis again today 06/01 (3) Chronic kidney disease, stage 4 (severe): Code(s): N18.4 - Chronic kidney disease, stage 4 (severe) Status: Chronic Assessment and Plan: 05/28 creatinine 2.8, 05/30 2.4, 05/31 2.5, 06/01 2.2 continues to improve Continue to monitor (4) Hyponatremia: Code(s): E87.1 - Hypo-osmolality and hyponatremia Status: Acute Assessment and Plan: Stable. Monitor. Secondary to renal dysfunction (5) Hypertension: Qualifiers: Hypertension type: essential hypertension Qualified Code(s): I10 - Essential (primary) hypertension Code(s): I10 - Essential (primary) hypertension Status: Chronic Assessment and Plan: Chronic and stable (6) Gastric ulcer: Qualifiers: Gastric ulcer chronicity: chronic Gastric ulcer complication status: without hemorrhage or perforation Qualified Code(s): K25.7 - Chronic gastric ulcer without hemorrhage or perforation Code(s): K25.9 - Gastric ulcer, unspecified as acute or chronic, without hemorrhage or perforation Status: Acute Assessment and Plan: noted on recent EGD. Continue protonix. (7) Chronic anemia: Code(s): D64.9 - Anemia, unspecified Status: Acute Assessment and Plan: Stable. Monitor. Continue at 8.4 (8) Breast cancer: Qualifiers: Breast location: unspecified site of breast Estrogen receptor status: unspecified Patient sex: female Laterality: unspecified laterality Qualified Code(s): C50.919 - Malignant neoplasm of unspecified site of unspecified female breast Code(s): C50.919 - Malignant neoplasm of unspecified site of unspecified female breast Status: Acute Assessment and Plan: History of breast cancer, currently pt has thrombocytopenia DR Telles SCD ordered for DVT prophylaxis (9) Edema: Qualifiers: Edema type: unspecified Qualified Code(s): R60.9 - Edema, unspecified Code(s): R60.9 - Edema, unspecified Status: Acute Assessment and Plan: Venous dopplers negative. Stephanie Mckee Subjective Date/time seen: 06/01/19 15:34 Interval history: Date of visit 06/01. 78-year-old white female admitted with diverticular abscess and treating conservatively to initially with IV antibiotics. Gradually increasing her diet No cp or sob. Moderate LE edema (worse than her usual chronic edema). No bleeding. No abdominal pain or diarrhea. No n/v. Exam Narrative: Exam Narrative: Blood pressure 148/78 pulse is 90 saturating 90% on room air HEENT: EOMI, PERRL, pharyngeal mucosa pink and intact NECK: No JVD CHEST: Clear to auscultation. HEART: NL S1/S2, regular, 3/6 PAYAL ABDOMEN: BS+, soft, nontender, no mass, no bruits EXTREMITIES:, 3+ bilateral lissette edema with some pitting with Ravin wraps NEUROLOGIC: CN intact and symmetric to inspection. PSYCH: Alert. Oriented to person, place, and time. Objective Data Vital Signs Vital Signs: Vital Signs - 24 hr 05/31/19 20:00 05/31/19 22:00 06/01/19 06:00 Temperature 36.8 C 36.6 C Pulse Rate 102 H 102 H 98 Respiratory Rate 16 16 16 Blood Pressure
[2019-06-01 21:29] VITALS: PULSE 91; RESP 18; O2SAT 100
[2019-06-01] MEDS: MONTELUKAST SODIUM 10 MG TABLET PO (21:37)
[2019-06-01 22:00] VITALS: BP 148/89; PULSE 98; RESP 16; TEMP 36.6; O2SAT 100
[2019-06-02] MEDS: AZTREONAM 1 GM in DEXTROSE 5% IN WATER 50 ML IVPB ×2 (03:03→15:24)
[2019-06-02 06:00] VITALS: BP 164/90; PULSE 108; RESP 16; TEMP 36.3; O2SAT 100
[2019-06-02] MEDS: metroNIDAZOLE 250 MG TABLET 500 MG PO ×3 (06:03→21:27)
--- NOTE | 2019-06-02 07:59 | WPDGIPROGNO ---
Progress Note: A&P Additional Plan Patient reports feeling well. Still very weak. Tolerating diet without difficulty. Normal bowel habits. Physical exam she is alert. Afebrile. Lungs are clear. Heart without murmur. Abdomen is soft nontender with no organomegaly. She does have some point tenderness on the right lateral rib cage. Impression 1. Diverticulitis with pericolonic abscesses. Currently on antibiotics. Followed by surgery. eventual resection considered. 2. Right side and flank pain. Essentially resolved. 3. Asymptomatic cholelithiasis. 4. Gastric ulcer. Doing well on proton pump inhibitor. Follow up in 2 months is advised. 5. Resolved nausea. Likely multifactorial. Perhaps related azotemia. Medications. Her even the ulcer. 6. Chronic kidney disease. 7. Thrombocytopenia. Followed by Hematology at [facility]. Plan is for transfer to rehab when bed available. She remains very weak at this time. Subjective Date/time seen: 06/02/19 07:59 Objective Data Vital Signs Vital Signs: Vital Signs - 24 hr 06/01/19 14:00 06/01/19 21:29 06/01/19 22:00 Temperature 36.2 C L 36.6 C Pulse Rate 91 91 98 Respiratory Rate 18 18 16 Blood Pressure 151/90 H 148/89 H Pulse Oximetry 100 100 100 06/02/19 06:00 Temperature 36.3 C L Pulse Rate 108 H Respiratory Rate 16 Blood Pressure 164/90 H Pulse Oximetry 100 Intake/Output Intake/Output: Intake & Output 05/30/19 05/31/19 06/01/19 06/02/19 23:59 23:59 23:59 23:59 Intake Total 2035 1360 1440 250 Output Total 600 1025 790 Balance 1435 335 650 250 Meds/Results Medications: Active Medications Generic Name Dose Route Start Last Admin Trade Name Freq PRN Reason Stop Dose Admin Epoetin Nixon 10,000 units 05/26/19 17:10 05/31/19 18:03 Epogen SUB-Q 10,000 units MOWEFR LYLE Administration Hydromorphone HCl 0.5 mg 05/26/19 10:48 Dilaudid Inj IV PUSH Q8H PRN Pain Rated 7-10 Aztreonam 1 gm/ Dextrose 50 mls @ 100 mls/hr 05/26/19 14:00 06/02/19 03:33 IVPB 06/04/19 23:59 Infused Q12H LYLE Infusion Metronidazole 500 mg 05/28/19 15:35 06/02/19 06:03 Flagyl PO 06/04/19 23:59 500 mg Q8HR LYLE Administration Montelukast Sodium 10 mg 05/31/19 21:00 06/01/19 21:37 Singulair PO 10 mg HS LYLE Administration Pantoprazole Sodium 40 mg 05/27/19 09:00 06/01/19 08:02 Protonix Iv IV PUSH 40 mg QAM LYLE Administration Polyethylene Glycol 17 gm 05/26/19 16:33 06/01/19 08:02 Miralax PO 17 gm QAM LYLE Administration Radiology Results: ITS Impressions Venous Doppler Study 05/26/19 11:58 IMPRESSION: 1. No lower extremity deep venous thrombosis bilaterally. Renal Ultrasound 05/26/19 16:19 IMPRESSION: 1. Cholelithiasis. 2. Mild increased bilateral renal cortical echogenicity consistent with medical renal disease. No hydronephrosis. 3. Hepatic and pancreatic cysts. Upper Quadrant Ultrasound 05/26/19 16:19 IMPRESSION: 1. Cholelithiasis. 2. Mild increased bilateral renal cortical echogenicity consistent with medical renal disease. No hydronephrosis. 3. Hepatic and pancreatic cysts. Hepatobiliary Scan Nuclear Medicine 05/27/19 16:11 Impression: 1: Normal hepatobiliary scan. Abdomen X-Ray 05/30/19 13:24 IMPRESSION: 1. Nonobstructive bowel gas pattern.
[2019-06-02] MEDS: PANTOPRAZOLE SODIUM IV 40 MG VIAL IV PUSH (08:28)
[2019-06-02] MEDS: polyethylene glycoL 3350 17 GM POWD.PACK PO (08:29)
[2019-06-02 09:21] LABS: Basophils Percent Auto 0.4 % (0.2-1.2); Eosinophils Percent Auto 0.8 % (0-4.4); Hematocrit 29.6 % (37.0-47.0); Hemoglobin 9.4 g/dL (12.0-15.0); Immature Granulocyte Absolute 0.02 K/mm3 (0.00-0.031); Immature Granulocyte Percent A 0.4 % (0-0.5); Immature Platelet Fraction Pct 7.5 % (0.9-11.2); Lymphocytes Absolute Auto 0.66 K/mm3 (0.9-3.2); Lymphocytes Percent Auto 13.6 % (18.3-44.2); Mean Corpuscular HGB Conc 31.8 g/dl (32-36); Mean Corpuscular Hemoglobin 30.3 pg (26-34); Mean Corpuscular Volume 95.5 fl (80-100); Mean Platelet Volume 13.2 fl (7.4-10.4); Monocytes Absolute Auto 0.5 K/mm3 (0.1-0.6); Monocytes Percent Auto 10.9 % (2.6-8.5); Neutrophils Absolute Auto 3.6 K/mm3 (1.3-6.7); Neutrophils Percent Auto 73.9 % (45.5-73.1); Platelet Count Result 67 k/mm3 (150-375); Red Cell Distribution Width 17.2 % (11.5-14.5); White Blood Count 4.9 K/mm3 (4.5-10.0)
[2019-06-02 09:35] LABS: Blood Urea Nitrogen 31 mg/dL (7-17); Calcium 8.6 mg/dL (8.4-10.2); Carbon Dioxide 18 mmol/L (22-30); Chloride 101 mmol/L (98-107); Estimated CRCL calculation 17 ml/min; Estimated Glomerular Filt Rate 21; Glucose 94 mg/dL (65-105); Potassium 3.7 mmol/L (3.4-5.0); Sodium 132 mmol/L (137-145)
--- NOTE | 2019-06-02 10:03 | PCPTNOTE ---
pt was working with OT. Pt declined PT at this time stating that she needed a rest break in between sessions. Pt stated that nursing was going to wrap her legs and that she might try some PT later today.
--- NOTE | 2019-06-02 10:49 | PM.PNGS ---
Progress Note: A&P Assessment and Plan (1) Diverticulitis of large intestine with perforation and abscess with bleeding: Code(s): K57.21 - Diverticulitis of large intestine with perforation and abscess with bleeding Status: Acute Assessment and Plan: Continue antibiotics per ID. Follow a low fiber diet. Eventual sigmoid resection, which has been discussed with patient and family and will be discussed and scheduled further when seen as an outpatient. Okay to discharge from a surgical standpoint when okay with all other services. She has a follow-up appointment scheduled with Dr. Lerner in [place] next week. (2) Pancytopenia: Code(s): D61.818 - Other pancytopenia Status: Chronic (3) Nausea & vomiting: Qualifiers: Vomiting type: unspecified Vomiting Intractability: unspecified Qualified Code(s): R11.2 - Nausea with vomiting, unspecified Code(s): R11.2 - Nausea with vomiting, unspecified Status: Acute Additional Plan Discussed the patient's case and plan of care with Dr. Lerner. Subjective Subjective Date/Time Seen: 06/02/19 10:20 Patient reports: no new complaints and bowel movement Interval history: Patient seen and examined. No new complaints today. Reports leg swelling has improved. Denies abdominal, back or flank pain. Still tolerating a low fiber diet. Bowels continue to move daily. Review of Systems Review of Systems: All systems reviewed & are unremarkable except as noted in HPI and below Exam Const: General: comfortable, no acute distress, alert and awake GI: Inspection: normal to inspection and non-distended GI Palp: No abdominal tenderness, Yes Soft to palpation, No Guarding due to palpation present (GI) and No Rebound tenderness present Auscultation: normal bowel sounds Rectal Exam: deferred Skin: General skin exam: normal color Neuro: General: no focal motor deficits Extrem: General: edema bilateral (lower extremities pitting edema, improved with LEON wraps) Psych: Appearance: grossly normal Mental Status: mental status grossly normal Attitude: cooperative Objective Data Vital Signs Vital Signs: Vital Signs - 24 hr 06/01/19 14:00 06/01/19 21:29 06/01/19 22:00 Temperature 36.2 C L 36.6 C Pulse Rate 91 91 98 Respiratory Rate 18 18 16 Blood Pressure 151/90 H 148/89 H Pulse Oximetry 100 100 100 06/02/19 06:00 Temperature 36.3 C L Pulse Rate 108 H Respiratory Rate 16 Blood Pressure 164/90 H Pulse Oximetry 100 Intake/Output Intake/Output: Intake & Output 05/30/19 05/31/19 06/01/19 06/02/19 23:59 23:59 23:59 23:59 Intake Total 2035 1360 1440 730 Output Total 600 1025 790 Balance 1435 335 650 730 Meds/Results Medications: Active Medications Generic Name Dose Route Start Last Admin Trade Name Freq PRN Reason Stop Dose Admin Epoetin Nixon 10,000 units 05/26/19 17:10 05/31/19 18:03 Epogen SUB-Q 10,000 units MOWEFR LYLE Administration Hydromorphone HCl 0.5 mg 05/26/19 10:48 Dilaudid Inj IV PUSH Q8H PRN Pain Rated 7-10 Aztreonam 1 gm/ Dextrose 50 mls @ 100 mls/hr 05/26/19 14:00 06/02/19 03:33 IVPB 06/04/19 23:59 Infused Q12H LYLE Infusion Metronidazole 500 mg 05/28/19 15:35 06/02/19 06:03 Flagyl PO 06/04/19 23:59 500 mg Q8HR LYLE Administration Montelukast Sodium 10 mg 05/31/19 21:00 06/01/19 21:37 Singulair PO 10 mg HS LYLE Administration Pantoprazole Sodium 40 mg 05/27/19 09:00 06/02/19 08:28 Protonix Iv IV PUSH 40 mg QAM LYLE Administration Polyethylene Glycol 17 gm 05/26/19 16:33 06/02/19 08:29 Miralax PO 17 gm QAM LYLE Administration Radiology Results: ITS Impressions Venous Doppler Study 05/26/19 11:58 IMPRESSION: 1. No lower extremity deep venous thrombosis bilaterally. Renal Ultrasound 05/26/19 16:19 IMPRESSION: 1. Cholelithiasis. 2. Mild increased bilateral renal cortical echogenicity consistent with
--- NOTE | 2019-06-02 13:08 | PM.IMPN ---
Progress Note: A&P Assessment and Plan (1) Diverticulitis of large intestine with perforation and abscess with bleeding: Code(s): K57.21 - Diverticulitis of large intestine with perforation and abscess with bleeding Status: Acute Assessment and Plan: Continue metronidazole and aztreonam Plan is for extended course of antibx prior to definitive surgery. Day 11/14 (2) Nausea & vomiting: Qualifiers: Vomiting type: unspecified Vomiting Intractability: unspecified Qualified Code(s): R11.2 - Nausea with vomiting, unspecified Code(s): R11.2 - Nausea with vomiting, unspecified Status: Acute Assessment and Plan: 05/31 feeling much better 1 emesis 06/01 and none this am (3) Chronic kidney disease, stage 4 (severe): Code(s): N18.4 - Chronic kidney disease, stage 4 (severe) Status: Chronic Assessment and Plan: 05/28 creatinine 2.8, 05/30 2.4, 05/31 2.5, 06/01 2.2 and 2.3 today Continue to monitor (4) Hyponatremia: Code(s): E87.1 - Hypo-osmolality and hyponatremia Status: Acute Assessment and Plan: Stable. Monitor. Secondary to renal dysfunction stable at 132 (5) Hypertension: Qualifiers: Hypertension type: essential hypertension Qualified Code(s): I10 - Essential (primary) hypertension Code(s): I10 - Essential (primary) hypertension Status: Chronic Assessment and Plan: Chronic , running slightly high so restart coreg and hydralazine. Hold on clonidine if can (6) Gastric ulcer: Qualifiers: Gastric ulcer chronicity: chronic Gastric ulcer complication status: without hemorrhage or perforation Qualified Code(s): K25.7 - Chronic gastric ulcer without hemorrhage or perforation Code(s): K25.9 - Gastric ulcer, unspecified as acute or chronic, without hemorrhage or perforation Status: Acute Assessment and Plan: noted on recent EGD. Continue protonix. (7) Chronic anemia: Code(s): D64.9 - Anemia, unspecified Status: Acute Assessment and Plan: Stable. Monitor. Continue at 9.4 (8) Breast cancer: Qualifiers: Breast location: unspecified site of breast Estrogen receptor status: unspecified Patient sex: female Laterality: unspecified laterality Qualified Code(s): C50.919 - Malignant neoplasm of unspecified site of unspecified female breast Code(s): C50.919 - Malignant neoplasm of unspecified site of unspecified female breast Status: Acute Assessment and Plan: History of breast cancer, currently pt has thrombocytopenia DR Telles SCD ordered for DVT prophylaxis (9) Edema: Qualifiers: Edema type: unspecified Qualified Code(s): R60.9 - Edema, unspecified Code(s): R60.9 - Edema, unspecified Status: Acute Assessment and Plan: Venous dopplers negative. Stephanie Mckee Subjective Date/time seen: 06/02/19 13:08 Interval history: Date of visit 06/02. 78-year-old white female admitted with diverticular abscess and treating conservatively initially with IV antibiotics. Gradually increasing her diet No cp or sob. Moderate LE edema (worse than her usual chronic edema). No bleeding. No abdominal pain or diarrhea. No n/v. But has had bms Exam Narrative: Exam Narrative: Blood pressure 150/90 pulse is 100 saturating 98% on room air HEENT: EOMI, PERRL NECK: No JVD CHEST: Clear to auscultation. HEART: NL S1/S2, regular, 3/6 PAYAL ABDOMEN: BS+, soft, nontender, no mass, no bruits EXTREMITIES:, 3+ bilateral lissette edema with some pitting with Ravin wraps NEUROLOGIC: CN intact and symmetric to inspection. PSYCH: Alert. Oriented to person, place, and time. Objective Data Vital Signs Vital Signs: Vital Signs - 24 hr 06/01/19 14:00 06/01/19 21:29 06/01/19 22:00 Temperature 36.2 C L 36.6 C Pulse Rate 91 91 98 Respiratory Rate 18 18 16 Blood Pressure 151/90 H 148/89 H Pulse Oximetry 100 100 100 06/02/19 0
--- NOTE | 2019-06-02 13:58 | P.PNNP_ITS ---
Progress Note: A&P Assessment and Plan (1) Chronic kidney disease, stage 4 (severe): Code(s): N18.4 - Chronic kidney disease, stage 4 (severe) Status: Chronic Assessment and Plan: * stable if not better than baseline - better creatinine likely a manifestation of decreased muscle mass and bee bound status * baseline creatinine runs ~ 2.5 - 3.0mg/dl in the last year or so * due to hypertension and vascular disease * not opposed to PRN diuretics for edema if needed * continue supportive therapy (2) Diverticulitis of large intestine with perforation and abscess with bleeding: Code(s): K57.21 - Diverticulitis of large intestine with perforation and abscess with bleeding Status: Acute Assessment and Plan: * as noted by imaging studies to date * General Surgery and Infectious Disease following - antibiotics for 3 more days - eventually surgery for definitive treatment * continue current therapy (3) Hypertension: Qualifiers: Hypertension type: essential hypertension Qualified Code(s): I10 - Essential (primary) hypertension Code(s): I10 - Essential (primary) hypertension Status: Chronic Assessment and Plan: * reasonable control at this time * follow trend of hemodynamics * BP medications adjustments as deemed necessary * would not be too aggressive given known CKD and acute illness/infection (4) Hyponatremia: Code(s): E87.1 - Hypo-osmolality and hyponatremia Status: Acute Assessment and Plan: * mainly due to renal dysfunction * relatively stable * follow trend (5) Chronic anemia: Code(s): D64.9 - Anemia, unspecified Status: Acute Assessment and Plan: * multifactorial etiology: - previous JINA - known CKD - acute illness/inflammation - blood loss? * on Epogen (gets as an outpatient as well) * follow trend of H/H Will continue to follow. Subjective Date/time seen: 06/02/19 13:58 Appears to be doing reasonably well; advancing diet as tolerated and continues antibiotic therapy as outlined; no new issues or problems to report at this time. Exam Narrative: Exam Narrative: General: WD/WN female in NAD Heart: normal S1 and S2; no rub Lungs: clear to auscultation Abdomen: soft, nontender, nondistended, positive bowel sounds Extremities: no cyanosis or clubbing; trace - 1+ edema Skin: no rash Objective Data Vital Signs Vital Signs: Vital Signs Temp Pulse Resp BP Pulse Ox 06/02/19 06:00 36.3 C L 108 H 16 164/90 H 100 06/01/19 22:00 36.6 C 98 16 148/89 H 100 06/01/19 21:29 91 18 100 06/01/19 14:00 36.2 C L 91 18 151/90 H 100 Intake/Output Intake/Output: Intake & Output 05/30/19 05/31/19 06/01/19 06/02/19 23:59 23:59 23:59 23:59 Intake Total 2035 1360 1440 1210 Output Total 600 1025 790 Balance 1435 296 874 0767 Meds/Results Medications: Active Medications Generic Name Dose Route Start Last Admin Trade Name Freq PRN Reason Stop Dose Admin Carvedilol 25 mg 06/02/19 21:00 Coreg PO Q12HR LYLE Epoetin Nixon 10,000 units 05/26/19 17:10 05/31/19 18:03 Epogen SUB-Q 10,000 units MOWEFR LYLE Administration Hydralaz
--- NOTE | 2019-06-02 13:58 | PM.PNNEP ---
Progress Note: A&P Assessment and Plan (1) Chronic kidney disease, stage 4 (severe): Code(s): N18.4 - Chronic kidney disease, stage 4 (severe) Status: Chronic Assessment and Plan: stable if not better than baseline - better creatinine likely a manifestation of decreased muscle mass and bee bound status baseline creatinine runs ~ 2.5 - 3.0mg/dl in the last year or so due to hypertension and vascular disease not opposed to PRN diuretics for edema if needed continue supportive therapy (2) Diverticulitis of large intestine with perforation and abscess with bleeding: Code(s): K57.21 - Diverticulitis of large intestine with perforation and abscess with bleeding Status: Acute Assessment and Plan: as noted by imaging studies to date General Surgery and Infectious Disease following - antibiotics for 3 more days - eventually surgery for definitive treatment continue current therapy (3) Hypertension: Qualifiers: Hypertension type: essential hypertension Qualified Code(s): I10 - Essential (primary) hypertension Code(s): I10 - Essential (primary) hypertension Status: Chronic Assessment and Plan: reasonable control at this time follow trend of hemodynamics BP medications adjustments as deemed necessary would not be too aggressive given known CKD and acute illness/infection (4) Hyponatremia: Code(s): E87.1 - Hypo-osmolality and hyponatremia Status: Acute Assessment and Plan: mainly due to renal dysfunction relatively stable follow trend (5) Chronic anemia: Code(s): D64.9 - Anemia, unspecified Status: Acute Assessment and Plan: multifactorial etiology: - previous JINA - known CKD - acute illness/inflammation - blood loss? on Epogen (gets as an outpatient as well) follow trend of H/H Will continue to follow. Subjective Date/time seen: 06/02/19 13:58 Appears to be doing reasonably well; advancing diet as tolerated and continues antibiotic therapy as outlined; no new issues or problems to report at this time. Exam Narrative: Exam Narrative: General: WD/WN female in NAD Heart: normal S1 and S2; no rub Lungs: clear to auscultation Abdomen: soft, nontender, nondistended, positive bowel sounds Extremities: no cyanosis or clubbing; trace - 1+ edema Skin: no rash Objective Data Vital Signs Vital Signs: Vital Signs Temp Pulse Resp BP Pulse Ox 06/02/19 06:00 36.3 C L 108 H 16 164/90 H 100 06/01/19 22:00 36.6 C 98 16 148/89 H 100 06/01/19 21:29 91 18 100 06/01/19 14:00 36.2 C L 91 18 151/90 H 100 Intake/Output Intake/Output: Intake & Output 05/30/19 05/31/19 06/01/19 06/02/19 23:59 23:59 23:59 23:59 Intake Total 2035 1360 1440 1210 Output Total 600 1025 790 Balance 1435 863 919 0542 Meds/Results Medications: Active Medications Generic Name Dose Route Start Last Admin Trade Name Freq PRN Reason Stop Dose Admin Carvedilol 25 mg 06/02/19 21:00 Coreg PO Q12HR LYLE Epoetin Nixon 10,000 units 05/26/19 17:10 05/31/19 18:03 Epogen SUB-Q 10,000 units MOWEFR LYLE Administration Hydralazine HCl 10 mg 06/02/19 17:00 Apresoline Tablet PO QID LYLE Hydromorphone HCl 0.5 mg 05/26/19 10:48 Dilaudid Inj IV PUSH Q8H PRN Pain Rated 7-10 Aztreonam 1 gm/ Dextrose 50 mls @ 100 mls/hr 05/26/19 14:00 06/02/19 03:33 IVPB 06/04/19 23:59 Infused Q12H LYLE Infusion Metronidazole 500 mg 05/28/19 15:35 06/02/19 13:18 Flagyl PO 06/04/19 23:59 500 mg Q8HR LYLE Administration Montelukast Sodium 10 mg 05/31/19 21:00 06/01/19 21:37 Singulair PO 10 mg HS LYLE Administration Pantoprazole Sodium 40 mg 05/27/19 09:00 06/02/19 08:28 Protonix Iv IV PUSH 40 mg QAM LYLE Administration Polyethylene Glycol 17 gm 05/26/19 16:33 06/02/19 08:29 Ashleigh
[2019-06-02 14:00] VITALS: BP 148/88; PULSE 88; RESP 16; TEMP 36.8; O2SAT 97
[2019-06-02 15:25] VITALS: PULSE 89
[2019-06-02] MEDS: carvediloL 12.5 MG TABLET PO (15:25)
[2019-06-02] MEDS: EPOETIN ALFA 10,000 UNITS/ML VIAL 10000 UNITS SUB-Q (18:00)
[2019-06-02] MEDS: hydrALAZINE 10 MG TABLET PO ×2 (18:00→21:28)
[2019-06-02 20:00] VITALS: PULSE 110; RESP 16; O2SAT 98
[2019-06-02 21:24] VITALS: BP 148/91; PULSE 110; RESP 16; TEMP 36.6; O2SAT 98
[2019-06-02] MEDS: MONTELUKAST SODIUM 10 MG TABLET PO (21:27)
[2019-06-02 21:28] VITALS: PULSE 110
[2019-06-02] MEDS: carvediloL 25 MG TABLET PO (21:28)
[2019-06-03] MEDS: AZTREONAM 1 GM in DEXTROSE 5% IN WATER 50 ML IVPB ×2 (01:31→14:41)
[2019-06-03 04:18] VITALS: BP 141/73; PULSE 94; RESP 16; TEMP 36.6; O2SAT 98
[2019-06-03] MEDS: metroNIDAZOLE 250 MG TABLET 500 MG PO ×3 (06:13→20:38)
[2019-06-03 08:22] VITALS: PULSE 94; RESP 16; O2SAT 98
[2019-06-03] MEDS: carvediloL 25 MG TABLET PO ×2 (08:22→20:37)
[2019-06-03] MEDS: PANTOPRAZOLE SODIUM IV 40 MG VIAL IV PUSH (08:22)
[2019-06-03] MEDS: hydrALAZINE 10 MG TABLET PO ×4 (08:22→20:38)
--- NOTE | 2019-06-03 13:21 | PCDIET ---
Nutrition Follow-Up Complete: Altered GI function relating to diverticulitis dx as evidenced by abdominal pain and PMHx of diverticulitis. Pt will tolerate diet once advanced. Goal:Goal met. Continue goal. Pt current nutrition is Low Fiber. Nutrition recommendation: Agree Last recorded weight is 70.1 kg. Bowel Motility:Pt states having to have a BM today Labs Reviewed:GFR 21, Na 132 Meds Noted:Epogen, Miralax Additional Notes: Pt feeling better today. Tolerating low fiber diet, eating 85-100% of last four meals. Pt no longer wants Ensure clear so we have removed supplements. Wt unchanged. Recommend updated wt. We will continue to follow PO intake, tolerance, and wt every five days.
[2019-06-03 14:00] VITALS: BP 150/82; PULSE 87; RESP 18; TEMP 36.4; O2SAT 100
--- NOTE | 2019-06-03 14:47 | PM.PNGS ---
Progress Note: A&P Assessment and Plan (1) Diverticulitis of large intestine with perforation and abscess with bleeding: Code(s): K57.21 - Diverticulitis of large intestine with perforation and abscess with bleeding Status: Acute Assessment and Plan: Continue antibiotics per ID, recommended until tomorrow. Follow a low fiber diet. Eventual sigmoid resection, which has been discussed with patient and family and will be discussed and scheduled further when seen as an outpatient. Okay to discharge from a surgical standpoint when okay with all other services. She has a follow-up appointment scheduled with Dr. Lerner in [place] next week. (2) Pancytopenia: Code(s): D61.818 - Other pancytopenia Status: Chronic (3) Nausea & vomiting: Qualifiers: Vomiting type: unspecified Vomiting Intractability: unspecified Qualified Code(s): R11.2 - Nausea with vomiting, unspecified Code(s): R11.2 - Nausea with vomiting, unspecified Status: Acute Additional Plan Discussed the patient's case and plan of care with Dr. Lerner. Subjective Subjective Date/Time Seen: 06/03/19 14:47 Patient reports: no new complaints Interval history: Patient seen and examined. Reports tolerating a diet still and having bowel movements. No complaints of pain now and no new complaints. Review of Systems Review of Systems: All systems reviewed & are unremarkable except as noted in HPI and below Exam Const: General: comfortable, no acute distress, alert and awake GI: Inspection: normal to inspection and non-distended GI Palp: No abdominal tenderness, Yes Soft to palpation, No Guarding due to palpation present (GI) and No Rebound tenderness present Auscultation: normal bowel sounds Neuro: General: moves all extremities and no focal motor deficits Extrem: General: edema bilateral (lower extremities pitting edema, improved with LEON wraps) Psych: Mental Status: mental status grossly normal Attitude: cooperative Objective Data Vital Signs Vital Signs: Vital Signs - 24 hr 06/02/19 15:25 06/02/19 20:00 06/02/19 21:24 Temperature 36.6 C Pulse Rate 89 110 H 110 H Respiratory Rate 16 16 Blood Pressure 148/91 H Pulse Oximetry 98 98 06/02/19 21:28 06/03/19 04:18 06/03/19 08:22 Temperature 36.6 C Pulse Rate 110 H 94 94 Respiratory Rate 16 16 Blood Pressure 141/73 H Pulse Oximetry 98 98 06/03/19 14:00 Temperature 36.4 C Pulse Rate 87 Respiratory Rate 18 Blood Pressure 150/82 H Pulse Oximetry 100 Intake/Output Intake/Output: Intake & Output 05/31/19 06/01/19 06/02/19 06/03/19 23:59 23:59 23:59 23:59 Intake Total 1360 1440 2340 920 Output Total 1025 790 600 100 Balance 105 585 3787 820 Meds/Results Medications: Active Medications Generic Name Dose Route Start Last Admin Trade Name Freq PRN Reason Stop Dose Admin Carvedilol 25 mg 06/02/19 21:00 06/03/19 08:22 Coreg PO 25 mg Q12HR LYLE Administration Epoetin Nixon 10,000 units 05/26/19 17:10 06/02/19 18:00 Epogen SUB-Q 10,000 units MOWEFR LYLE Administration Hydralazine HCl 10 mg 06/02/19 17:00 06/03/19 12:37 Apresoline Tablet PO 10 mg QID LYLE Administration Hydromorphone HCl 0.5 mg 05/26/19 10:48 Dilaudid Inj IV PUSH Q8H PRN Pain Rated 7-10 Aztreonam 1 gm/ Dextrose 50 mls @ 100 mls/hr 05/26/19 14:00 06/03/19 14:41 IVPB 06/04/19 23:59 100 mls/hr Q12H LYLE Administration Metronidazole 500 mg 05/28/19 15:35 06/03/19 13:38 Flagyl PO 06/04/19 23:59 500 mg Q8HR LYLE Administration Montelukast Sodium 10 mg 05/31/19 21:00 06/02/19 21:27 Singulair PO 10 mg HS LYLE Administration Pantoprazole Sodium 40 mg 05/27/19 09:00 06/03/19 08:22 Protonix Iv IV PUSH 40 mg QAM LYLE Administration Polyethylene Glycol 17 gm 05/26/19 16:33 06/03/19 08:22 Miralax PO Not Given QAM LYLE Radiology Results: ITS Impressions Ronny
--- NOTE | 2019-06-03 16:34 | PM.IMPN ---
Progress Note: A&P Assessment and Plan (1) Diverticulitis of large intestine with perforation and abscess with bleeding: Code(s): K57.21 - Diverticulitis of large intestine with perforation and abscess with bleeding Status: Acute Assessment and Plan: Continue metronidazole and aztreonam Plan is for extended course of antibx prior to definitive surgery. Day 12/15 (2) Nausea & vomiting: Qualifiers: Vomiting type: unspecified Vomiting Intractability: unspecified Qualified Code(s): R11.2 - Nausea with vomiting, unspecified Code(s): R11.2 - Nausea with vomiting, unspecified Status: Acute Assessment and Plan: 05/31 feeling much better 1 emesis 06/01 and none last 2 days (3) Chronic kidney disease, stage 4 (severe): Code(s): N18.4 - Chronic kidney disease, stage 4 (severe) Status: Chronic Assessment and Plan: 05/28 creatinine 2.8, 05/30 2.4, 05/31 2.5, 06/01 2.2 and 2.3 06/02 and will recheck am Continue to monitor (4) Hyponatremia: Code(s): E87.1 - Hypo-osmolality and hyponatremia Status: Acute Assessment and Plan: Stable. Monitor. Secondary to renal dysfunction stable at 132 recheck am (5) Hypertension: Qualifiers: Hypertension type: essential hypertension Qualified Code(s): I10 - Essential (primary) hypertension Code(s): I10 - Essential (primary) hypertension Status: Chronic Assessment and Plan: Chronic , running slightly high so restarted coreg and hydralazine 06/02 continue to. Hold on clonidine if can (6) Gastric ulcer: Qualifiers: Gastric ulcer chronicity: chronic Gastric ulcer complication status: without hemorrhage or perforation Qualified Code(s): K25.7 - Chronic gastric ulcer without hemorrhage or perforation Code(s): K25.9 - Gastric ulcer, unspecified as acute or chronic, without hemorrhage or perforation Status: Acute Assessment and Plan: noted on recent EGD. Continue protonix. (7) Chronic anemia: Code(s): D64.9 - Anemia, unspecified Status: Acute Assessment and Plan: Stable. Monitor. Continue at 9.4 (8) Breast cancer: Qualifiers: Breast location: unspecified site of breast Estrogen receptor status: unspecified Patient sex: female Laterality: unspecified laterality Qualified Code(s): C50.919 - Malignant neoplasm of unspecified site of unspecified female breast Code(s): C50.919 - Malignant neoplasm of unspecified site of unspecified female breast Status: Acute Assessment and Plan: History of breast cancer, currently pt has thrombocytopenia DR Telles SCD ordered for DVT prophylaxis (9) Edema: Qualifiers: Edema type: unspecified Qualified Code(s): R60.9 - Edema, unspecified Code(s): R60.9 - Edema, unspecified Status: Acute Assessment and Plan: Venous dopplers negative. Stephanie Mckee Subjective Date/time seen: 06/03/19 16:34 Interval history: Date of visit 06/03. 78-year-old white female admitted with diverticular abscess and treating conservatively initially with IV antibiotics. Gradually increasing her diet and slowly eating more No cp or sob. Moderate LE edema (worse than her usual chronic edema). No bleeding. No abdominal pain or diarrhea. No n/v. But has had bms and again this am Exam Narrative: Exam Narrative: Blood pressure 150/82 pulse is 86 saturating 98% on room air HEENT: EOMI, PERRL NECK: No JVD CHEST: Clear to auscultation. HEART: NL S1/S2, regular, 3/6 PAYAL ABDOMEN: BS+, soft, nontender, no mass, no bruits EXTREMITIES:, 3+ bilateral lissette edema with some pitting with Ravin wraps NEUROLOGIC: CN intact and symmetric to inspection. PSYCH: Alert. Oriented to person, place, and time. Objective Data Vital Signs Vital Signs: Vital Signs - 24 hr 06/02/19 20:00 06/02/19 21:24 06/02/19 21:28 Temperature 36.6 C Pulse Rate 110 H 110 H 110 H Respirat
[2019-06-03 20:28] VITALS: BP 149/94; PULSE 91; RESP 16; TEMP 36.5; O2SAT 99
[2019-06-03] MEDS: MONTELUKAST SODIUM 10 MG TABLET PO (20:38)
[2019-06-04] MEDS: AZTREONAM 1 GM in DEXTROSE 5% IN WATER 50 ML IVPB ×2 (01:34→12:22)
[2019-06-04 06:00] VITALS: BP 148/76; PULSE 96; RESP 16; TEMP 36.2; O2SAT 99
[2019-06-04] MEDS: metroNIDAZOLE 250 MG TABLET 500 MG PO ×2 (06:05→13:25)
[2019-06-04 06:09] LABS: Basophils Percent Auto 0.5 % (0.2-1.2); Hematocrit 24.7 % (37.0-47.0); Immature Granulocyte Absolute 0.01 K/mm3 (0.00-0.031); Immature Granulocyte Percent A 0.2 % (0-0.5); Lymphocytes Absolute Auto 0.65 K/mm3 (0.9-3.2); Mean Corpuscular HGB Conc 32.4 g/dl (32-36); Mean Corpuscular Hemoglobin 30.4 pg (26-34); Mean Corpuscular Volume 93.9 fl (80-100); Monocytes Absolute Auto 0.6 K/mm3 (0.1-0.6); Monocytes Percent Auto 13.8 % (2.6-8.5); Neutrophils Absolute Auto 2.8 K/mm3 (1.3-6.7); Neutrophils Percent Auto 68.5 % (45.5-73.1); Platelet Count Result 66 k/mm3 (150-375); Red Blood Count 2.63 M/mm3 (4.2-5.4); Red Cell Distribution Width 17.1 % (11.5-14.5); White Blood Count 4.1 K/mm3 (4.5-10.0)
[2019-06-04 06:25] LABS: Blood Urea Nitrogen 29 mg/dL (7-17); Calcium 8.1 mg/dL (8.4-10.2); Carbon Dioxide 18 mmol/L (22-30); Chloride 102 mmol/L (98-107); Estimated CRCL calculation 16 ml/min; Estimated Glomerular Filt Rate 19; Glucose 83 mg/dL (65-105); Potassium 3.6 mmol/L (3.4-5.0); Sodium 133 mmol/L (137-145)
[2019-06-04] MEDS: PANTOPRAZOLE SODIUM IV 40 MG VIAL IV PUSH (08:52)
[2019-06-04] MEDS: hydrALAZINE 10 MG TABLET PO ×2 (08:52→12:33)
[2019-06-04 08:53] VITALS: PULSE 96; RESP 16; O2SAT 99
[2019-06-04] MEDS: carvediloL 25 MG TABLET PO (08:53)
--- NOTE | 2019-06-04 10:34 | PM.IMPN ---
Progress Note: A&P Assessment and Plan (1) Diverticulitis of large intestine with perforation and abscess with bleeding: Code(s): K57.21 - Diverticulitis of large intestine with perforation and abscess with bleeding Status: Acute Assessment and Plan: Continue metronidazole and aztreonam, finish today Plan is for course of antibx prior to definitive surgery. Day 01/14 finish today Probable to rehab today (2) Nausea & vomiting: Qualifiers: Vomiting type: unspecified Vomiting Intractability: unspecified Qualified Code(s): R11.2 - Nausea with vomiting, unspecified Code(s): R11.2 - Nausea with vomiting, unspecified Status: Acute Assessment and Plan: 05/31 feeling much better 1 emesis 06/01 and none last 3 days (3) Chronic kidney disease, stage 4 (severe): Code(s): N18.4 - Chronic kidney disease, stage 4 (severe) Status: Chronic Assessment and Plan: 05/28 creatinine 2.8, 05/30 2.4, 05/31 2.5, 06/01 2.2 and 2.3 06/02 and 06/04 2.5 Continue to monitor (4) Hyponatremia: Code(s): E87.1 - Hypo-osmolality and hyponatremia Status: Acute Assessment and Plan: Stable. Monitor. Secondary to renal dysfunction stable at 133 today (5) Hypertension: Qualifiers: Hypertension type: essential hypertension Qualified Code(s): I10 - Essential (primary) hypertension Code(s): I10 - Essential (primary) hypertension Status: Chronic Assessment and Plan: Chronic , running slightly high so restarted coreg and hydralazine 06/02 continue to. Hold on clonidine if can (6) Gastric ulcer: Qualifiers: Gastric ulcer chronicity: chronic Gastric ulcer complication status: without hemorrhage or perforation Qualified Code(s): K25.7 - Chronic gastric ulcer without hemorrhage or perforation Code(s): K25.9 - Gastric ulcer, unspecified as acute or chronic, without hemorrhage or perforation Status: Acute Assessment and Plan: noted on recent EGD. Continue protonix. (7) Chronic anemia: Code(s): D64.9 - Anemia, unspecified Status: Acute Assessment and Plan: Stable. Monitor. Continue at 8.0 (8) Breast cancer: Qualifiers: Breast location: unspecified site of breast Estrogen receptor status: unspecified Patient sex: female Laterality: unspecified laterality Qualified Code(s): C50.919 - Malignant neoplasm of unspecified site of unspecified female breast Code(s): C50.919 - Malignant neoplasm of unspecified site of unspecified female breast Status: Acute Assessment and Plan: History of breast cancer, currently pt has thrombocytopenia(steady at 66K) DR Telles, SCD ordered for DVT prophylaxis (9) Edema: Qualifiers: Edema type: unspecified Qualified Code(s): R60.9 - Edema, unspecified Code(s): R60.9 - Edema, unspecified Status: Acute Assessment and Plan: Venous dopplers negative. MASON Mckees Subjective Date/time seen: 06/04/19 10:34 Interval history: Date of visit 06/04. 78-year-old white female admitted with diverticular abscess and treating conservatively initially with IV antibiotics. Gradually increasing her diet and slowly eating more No cp or sob. Moderate LE edema (worse than her usual chronic edema). No bleeding. No abdominal pain or diarrhea. No n/v. But has had bms . Exam Narrative: Exam Narrative: Blood pressure 146/76 pulse is 90 saturating 100% on room air HEENT: EOMI, PERRL NECK: No JVD CHEST: Clear to auscultation. HEART: NL S1/S2, regular, 3/6 PAYAL ABDOMEN: BS+, soft, nontender, no mass, no bruits EXTREMITIES:, 2+ bilateral lissette edema with some pitting and decreased NEUROLOGIC: CN intact and symmetric to inspection. PSYCH: Alert. Oriented to person, place, and time. Objective Data Vital Signs Vital Signs: Vital Signs - 24 hr 06/03/19 14:00 06/03/19 20:28 06/04/19 06:00 Temperature 36.4 C 36.5 C
--- NOTE | 2019-06-04 11:06 | WPDGIPROGNO ---
Progress Note: A&P Additional Plan Patient alert comfortable at present. Tolerating diet. No more nausea described Physical exam reveals her to be afebrile. She is anicteric. Lungs are clear. Heart is without murmur. Abdomen is soft and nontender. Impression 1. Diverticulitis with pericolonic abscess. Plan is to complete course of antibiotics. Surgeon following and anticipated ventral resection 2. Gastric ulcer. No asymptomatic currently on proton pump 3. Chronic kidney disease. 4. Thrombocytopenia. 5. Asymptomatic gallstones. Plan is for rehabilitation stay to gain strength. Follow up with surgery as described. Consider follow-up EGD in 2 months. Subjective Date/time seen: 06/04/19 11:06 Objective Data Vital Signs Vital Signs: Vital Signs - 24 hr 06/03/19 14:00 06/03/19 20:28 06/04/19 06:00 Temperature 36.4 C 36.5 C 36.2 C L Pulse Rate 87 91 96 Respiratory Rate 18 16 16 Blood Pressure 150/82 H 149/94 H 148/76 H Pulse Oximetry 100 99 99 06/04/19 08:53 Temperature Pulse Rate 96 Respiratory Rate Blood Pressure Pulse Oximetry Intake/Output Intake/Output: Intake & Output 06/01/19 06/02/19 06/03/19 06/04/19 23:59 23:59 23:59 23:59 Intake Total 1440 2340 1450 830 Output Total 790 600 350 Balance 650 1740 1100 830 Meds/Results Medications: Active Medications Generic Name Dose Route Start Last Admin Trade Name Freq PRN Reason Stop Dose Admin Carvedilol 25 mg 06/02/19 21:00 06/04/19 08:53 Coreg PO 25 mg Q12HR LYLE Administration Epoetin Nixon 10,000 units 05/26/19 17:10 06/02/19 18:00 Epogen SUB-Q 10,000 units MOWEFR LYLE Administration Hydralazine HCl 10 mg 06/02/19 17:00 06/04/19 08:52 Apresoline Tablet PO 10 mg QID LYLE Administration Hydromorphone HCl 0.5 mg 05/26/19 10:48 Dilaudid Inj IV PUSH Q8H PRN Pain Rated 7-10 Aztreonam 1 gm/ Dextrose 50 mls @ 100 mls/hr 05/26/19 14:00 06/04/19 02:05 IVPB 06/04/19 23:59 Infused Q12H LYLE Infusion Metronidazole 500 mg 05/28/19 15:35 06/04/19 06:05 Flagyl PO 06/04/19 23:59 500 mg Q8HR LYLE Administration Montelukast Sodium 10 mg 05/31/19 21:00 06/03/19 20:38 Singulair PO 10 mg HS LYLE Administration Pantoprazole Sodium 40 mg 05/27/19 09:00 06/04/19 08:52 Protonix Iv IV PUSH 40 mg QAM LYLE Administration Polyethylene Glycol 17 gm 05/26/19 16:33 06/04/19 08:53 Miralax PO Not Given QAM LYLE Radiology Results: ITS Impressions Venous Doppler Study 05/26/19 11:58 IMPRESSION: 1. No lower extremity deep venous thrombosis bilaterally. Renal Ultrasound 05/26/19 16:19 IMPRESSION: 1. Cholelithiasis. 2. Mild increased bilateral renal cortical echogenicity consistent with medical renal disease. No hydronephrosis. 3. Hepatic and pancreatic cysts. Upper Quadrant Ultrasound 05/26/19 16:19 IMPRESSION: 1. Cholelithiasis. 2. Mild increased bilateral renal cortical echogenicity consistent with medical renal disease. No hydronephrosis. 3. Hepatic and pancreatic cysts. Hepatobiliary Scan Nuclear Medicine 05/27/19 16:11 Impression: 1: Normal hepatobiliary scan. Abdomen X-Ray 05/30/19 13:24 IMPRESSION: 1. Nonobstructive bowel gas pattern. Labs Labs: Laboratory Results - last 24 hr 06/04/19 06/04/19 05:29 05:29 WBC 4.1 L RBC 2.63 L Hgb 8.0 L Hct 24.7 L MCV 93.9 MCH 30.4 MCHC 32.4 RDW 17.1 H Plt Count 66 L MPV 13.0 H Immature Gran % (Auto) 0.2 Neut % (Auto) 68.5 Lymph % (Auto) 16.0 L [place] % (Auto) 13.8 H Eos % (Auto) 1.0 Baso % (Auto) 0.5 Lymph # (Auto) 0.65 L [place] # (Auto) 0.6 Eos # (Auto) 0.0 Baso # (Auto) 0.0 Abs Immat Gran (auto) 0.01 Absolute Neuts (auto) 2.8 Absolute Nucleated RBC 0.0 Nucleated RBC % 0.0 Sodium 133 L Potassium 3.6 Chloride 102 Carbon Dioxide 18 L BUN 29 H Creatinine 2.50 H Estim Creat Clear C
[2019-06-04 14:00] VITALS: BP 136/68; PULSE 68; RESP 16; TEMP 36.8; O2SAT 98
--- NOTE | 2019-06-04 15:17 | PM.PNNEP ---
Progress Note: A&P Assessment and Plan (1) Chronic kidney disease, stage 4 (severe): Code(s): N18.4 - Chronic kidney disease, stage 4 (severe) Status: Chronic Assessment and Plan: stable baseline creatinine runs ~ 2.5 - 3.0mg/dl in the last year or so due to hypertension and vascular disease not opposed to PRN diuretics for edema if needed continue supportive therapy (2) Diverticulitis of large intestine with perforation and abscess with bleeding: Code(s): K57.21 - Diverticulitis of large intestine with perforation and abscess with bleeding Status: Acute Assessment and Plan: as noted by imaging studies to date General Surgery and Infectious Disease following - antibiotics for 3 more days - eventually surgery for definitive treatment continue current therapy (3) Hypertension: Qualifiers: Hypertension type: essential hypertension Qualified Code(s): I10 - Essential (primary) hypertension Code(s): I10 - Essential (primary) hypertension Status: Chronic Assessment and Plan: reasonable control at this time follow trend of hemodynamics BP medications adjustments as deemed necessary would not be too aggressive given known CKD and acute illness/infection (4) Hyponatremia: Code(s): E87.1 - Hypo-osmolality and hyponatremia Status: Acute Assessment and Plan: mainly due to renal dysfunction relatively stable follow trend (5) Chronic anemia: Code(s): D64.9 - Anemia, unspecified Status: Acute Assessment and Plan: multifactorial etiology: - previous JINA - known CKD - acute illness/inflammation - blood loss? on Epogen (gets as an outpatient as well) follow trend of H/H The patient will call my office to schedule follow-up appointment for ongoing management of her CKD. Her daughters will help facilitate this. Subjective Date/time seen: 06/04/19 15:17 Happy about discharge today -- continues to do quite well and has no acute distress at this time; daughters at bedside and we discussed the situation; no other complaints voiced at this time. Exam Narrative: Exam Narrative: General: WD/WN female in NAD Heart: normal S1 and S2; no rub Lungs: clear to auscultation Abdomen: soft, nontender, nondistended, positive bowel sounds Extremities: no cyanosis or clubbing; trace - 1+ edema Skin: warm and dry Objective Data Vital Signs Vital Signs: Vital Signs Temp Pulse Resp BP Pulse Ox 06/04/19 14:00 36.8 C 68 16 136/68 98 06/04/19 08:53 96 16 99 06/04/19 06:00 36.2 C L 96 16 148/76 H 99 06/03/19 20:28 36.5 C 91 16 149/94 H 99 Intake/Output Intake/Output: Intake & Output 06/01/19 06/02/19 06/03/19 06/04/19 23:59 23:59 23:59 23:59 Intake Total 1440 2340 1450 1840 Output Total 790 600 350 600 Balance 650 1740 1100 1240 Meds/Results Radiology Results: ITS Impressions Venous Doppler Study 05/26/19 11:58 IMPRESSION: 1. No lower extremity deep venous thrombosis bilaterally. Renal Ultrasound 05/26/19 16:19 IMPRESSION: 1. Cholelithiasis. 2. Mild increased bilateral renal cortical echogenicity consistent with medical renal disease. No hydronephrosis. 3. Hepatic and pancreatic cysts. Upper Quadrant Ultrasound 05/26/19 16:19 IMPRESSION: 1. Cholelithiasis. 2. Mild increased bilateral renal cortical echogenicity consistent with medical renal disease. No hydronephrosis. 3. Hepatic and pancreatic cysts. Hepatobiliary Scan Nuclear Medicine 05/27/19 16:11 Impression: 1: Normal hepatobiliary scan. Abdomen X-Ray 05/30/19 13:24 IMPRESSION: 1. Nonobstructive bowel gas pattern. Labs Labs: Laboratory Tests 06/04/19 05:29 06/04/19 05:29
--- NOTE | 2019-06-04 16:49 | PM.DS ---
DS: Diagnosis Admitting Diagnosis Admitting Diagnosis: Diverticulitis of large intestine with perforation and abscess with bleeding Discharge Diagnosis (1) Diverticulitis of large intestine with perforation and abscess with bleeding: Code(s): K57.21 - Diverticulitis of large intestine with perforation and abscess with bleeding Status: Acute Assessment and Plan: Continue metronidazole and aztreonam, finish today Plan is for course of antibx prior to definitive surgery. Day 01/14 finish today to rehab today (2) Nausea & vomiting: Qualifiers: Vomiting type: unspecified Vomiting Intractability: unspecified Qualified Code(s): R11.2 - Nausea with vomiting, unspecified Code(s): R11.2 - Nausea with vomiting, unspecified Status: Acute Assessment and Plan: 05/31 feeling much better 1 emesis 06/01 and none last 3 days (3) Chronic kidney disease, stage 4 (severe): Code(s): N18.4 - Chronic kidney disease, stage 4 (severe) Status: Chronic Assessment and Plan: 05/28 creatinine 2.8, 05/30 2.4, 05/31 2.5, 06/01 2.2 and 2.3 06/02 and 06/04 2.5 Continue to monitor (4) Hyponatremia: Code(s): E87.1 - Hypo-osmolality and hyponatremia Status: Acute Assessment and Plan: Stable. Monitor. Secondary to renal dysfunction stable at 133 today (5) Hypertension: Qualifiers: Hypertension type: essential hypertension Qualified Code(s): I10 - Essential (primary) hypertension Code(s): I10 - Essential (primary) hypertension Status: Chronic Assessment and Plan: Chronic , running slightly high so restarted coreg and hydralazine 06/02 Restart clonidine on discharge (6) Gastric ulcer: Qualifiers: Gastric ulcer chronicity: chronic Gastric ulcer complication status: without hemorrhage or perforation Qualified Code(s): K25.7 - Chronic gastric ulcer without hemorrhage or perforation Code(s): K25.9 - Gastric ulcer, unspecified as acute or chronic, without hemorrhage or perforation Status: Acute Assessment and Plan: noted on recent EGD. Continue protonix.40 mg qd (7) Chronic anemia: Code(s): D64.9 - Anemia, unspecified Status: Acute Assessment and Plan: Stable. Monitor. hgb 8.0 today (8) Breast cancer: Qualifiers: Breast location: unspecified site of breast Estrogen receptor status: unspecified Patient sex: female Laterality: unspecified laterality Qualified Code(s): C50.919 - Malignant neoplasm of unspecified site of unspecified female breast Code(s): C50.919 - Malignant neoplasm of unspecified site of unspecified female breast Status: Acute Assessment and Plan: History of breast cancer, currently pt has thrombocytopenia(steady at 66K) DR Telles, SCD ordered for DVT prophylaxis (9) Edema: Qualifiers: Edema type: unspecified Qualified Code(s): R60.9 - Edema, unspecified Code(s): R60.9 - Edema, unspecified Status: Acute Assessment and Plan: Venous dopplers negative. MASON Mckees DS: Summary Hospital Course Hospital Course: 78-year-old hypertensive white female with chronic renal failure admitted with diverticulitis with abscess. She is treated conservatively with IV antibiotics and transferred to rehab at [facility] to follow-up with surgery on 06/09 to planned for probable definitive surgery. At discharge she was taken the diet well up with assistance and no abdominal pain. She had finished 10 day course of IV antibiotics prescribed by ID Time Spent with Patient Time attestation: Total time spent providing and/or coordinating discharge services: 35 minutes Exam Narrative: Exam Narrative: Condition on discharge Blood pressure 146/76 pulse is 90 and regular afebrile Lungs clear CV systolic ejection murmur regular Abdomen benign Extremities pitting Edema as before Neuro alert oriented She was taken low fibe
== END 2019-06-04 14:40 | disposition swing bed (61) | DRG 378 ==
PROVIDERS: Internal Medicine; Internal Medicine Gastroenterology; Internal Medicine Nephrology; Surgery; Admitting Provider Family Medicine; PCP Internal Medicine; Visit Provider Internal Medicine
DX: K57.21 Diverticulitis of large intestine with perforation and abscess with bleeding (principal); N18.4 Chronic kidney disease, stage 4 (severe); E87.1 Hypo-osmolality and hyponatremia; D61.818 Other pancytopenia; I12.9 Hypertensive chronic kidney disease with stage 1 through stage 4 chronic kidney disease, or unspecified chronic kidney disease; D64.9 Anemia, unspecified; K25.9 Gastric ulcer, unspecified as acute or chronic, without hemorrhage or perforation; C50.919 Malignant neoplasm of unspecified site of unspecified female breast; D69.6 Thrombocytopenia, unspecified; K80.20 Calculus of gallbladder without cholecystitis without obstruction; R60.9 Edema, unspecified; N28.1 Cyst of kidney, acquired; K76.89 Other specified diseases of liver; M10.9 Gout, unspecified; E78.5 Hyperlipidemia, unspecified; Z96.641 Presence of right artificial hip joint; Z66 Do not resuscitate
CPT/HCPCS: 36415; 74019; 76705; 76775; 78227; 80048; 80069; 81001; 82550; 82570; 82728; 83540; 83550; 84156; 84300; 85025; 85027; 85055; 85999; 86140; 87040; 93970; 97110; 97116; 97161; 97165; 97535; A9270; A9537; C9113; J1940; J2805; J7042; Q4081

== ENCOUNTER 2019-06-04 15:29 | Inpatient (IN) | payer MEDICARE, SELFPAY ==
--- NOTE | ~2019-06-04 | XR_ITS ---
EXAMINATION: XR chest 2V DATE: 06/05/2019 08:44 INDICATION: Weakness. TECHNIQUE: Frontal and lateral views of the chest were obtained. COMPARISON: Chest single view 05/26/2019, 10/15/2018, CT abdomen and pelvis 05/26/2019 FINDINGS: There are small pleural effusions. There are airspace opacities at the lung bases. No pneum othorax. The heart size is normal. There is leftward deviation of the trachea at the thoracic inlet. IMPRESSION: 1. Worsened small pleural effusions. 2. Airspace opacities at the lung bases, likely atelectasis. 3. Chronic leftward deviation of the trachea at the thoracic inlet, most likely from a goiter. Reviewed, dictated and finalized at location A. DESTRUCTIVE TESTING ENGINEER
--- NOTE | ~2019-06-04 | CT_ITS ---
EXAMINATION: CT brain wo con DATE: 06/06/2019 09:11 INDICATION: Unresponsiveness. TECHNIQUE: Computed tomography (CT) of the head was performed without intravenous contrast. The mA wa s adjusted according to patient size. Iterative reconstruction technique was employed. The dose-lengt h product was 605.33 mGy-cm. COMPARISON: None FINDINGS: There are scattered areas of low attenuation in the cerebral white matter, which is within normal limits for the patient's age. There is no intracranial hemorrhage, acute infarction, or abnorm al intracranial mass lesion. The ventricles are normal in size. The orbits are normal. There is mild mucosal thickening in the ethmoid sinuses. The mastoid air cells are normal. IMPRESSION: 1. Normal aging brain. Reviewed, dictated and finalized at location A. E GOODS PACKER IMPRESSION: 1. Normal aging brain.
[2019-06-04 15:30] VITALS: BP 151/86; PULSE 80; RESP 24; TEMP 36.7; O2SAT 100
[2019-06-04 15:44] VITALS: BMI 28.6
--- NOTE | 2019-06-04 16:40 | PM.IMHP ---
H&P: HPI History of Present Illness Chief complaint: REHAB <VASYL Macdonald - Last Filed: 06/05/19 16:17> Narrative: Grecia Patterson is a 78 year old female that presented to [facility] on 05/26/2019 for right flank pain CT indicated Sigmoid diverticulitis and multiple diverticular abscesses transfer to [facility]. she has a past medical history of breast cancer, chronic anemia, chronic kidney disease stage 4, and diverticular disease. [facility], nephrology, surgery and Infectious Disease was consulted. Patient was treated with with antibiotics with future plans for sigmoidectomy. Patient admitted in swing bed for rehabilitation due to decreased balance decreased mobility in severe limited function endurance and/or mobility. <VASYL Macdonald - Last Filed: 06/05/19 16:17> Review of Systems Constitutional: Constitutional: Reports no additional constitutional complaints, Denies fatigue, Denies fever(s) and Reports weakness <VASYL Macdonald - Last Filed: 06/05/19 16:17> Cardiovascular: Cardiovascular: Denies chest pain, Denies chest pain at rest, Denies chest pain with activity and Reports leg edema ( bilateral 2+ pitting edema) <VASYL Macdonald - Last Filed: 06/05/19 16:17> Respiratory: Respiratory: Reports no additional respiratory complaints, Denies chest congestion, Denies cough and Denies dyspnea <DARION Macdonald - Last Filed: 06/05/19 16:17> Gastrointestinal: Gastrointestinal: Denies melena, Denies constipation, Denies diarrhea, Denies nausea, Denies vomiting and Denies hematemesis <VASYL Macdonald - Last Filed: 06/05/19 16:17> Genitourinary: Genitourinary: Reports no additional female genitourinary complaints and Denies hematuria <VASYL Macdonald - Last Filed: 06/05/19 16:17> Musculoskeletal: Musculoskeletal: Reports no additional musculoskeletal complaints <DARION Macdonald - Last Filed: 06/05/19 16:17> Neurologic: Reports system reviewed and no additional complaints, except as documented, Denies Abnormal speech present, Denies vertigo, Denies dizziness, Denies syncope, Denies headache(s) and Denies loss of vision <VASYL Macdonald - Last Filed: 06/05/19 16:17> [facility] Past Medical History Medical History: Medical History (Updated 06/16/19 @ 14:21 by Vincenzo Pham, ) Acute on chronic blood loss anemia Breast cancer Carcinoma in situ, 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 Chronic anemia She is a patient of Dr. Telles at [facility]. A bone marrow biopsy done about 5 years ago was reportedly unremarkable. Most likely related to chronic renal failure. On Epogen Friday Chronic kidney disease, stage 4 (severe) Baseline creatinine around 3.0. Diverticulitis of colon with perforation Summer 2018, hospitalized at [facility]. Again in May of 2019 with intra-abdominal abscesses, currently 3 hospitalizations for this. Diverticulosis of colon with hemorrhage Diverticular disease with bleeding and anemia. Gastric ulcer Found May of 2019. Gout Hyperlipidemia Hypertension Nausea & vomiting Pancytopenia Seasonal allergies Seizure Patient was getting up out of a chair at [place] and rolled her eyes back and slid to the floor patient stated her legs gave out. No official diagnosis of seizure however she was started on seizure medicine SOB (shortness of breath) <VASYL Macdonald - Last Filed: 06/05/19 16:17> Surgical History Surgical History: Surgical History Basal cell carcinoma (BCC) 2 spots-cheek and forehead, removed 07/01/2011 Dental root implant present lower. 2001 H/O breast biopsy Small tumor-06/29/2013 H/O colonoscopy 10/09/2018, 05/2019 History of dilatation and curettage History of removal of cyst left middle finger. 2004
[2019-06-04] MEDS: CLONIDINE HCL 0.1 MG TABLET PO (18:20)
[2019-06-04] MEDS: SIMVASTATIN 10 MG TABLET PO (18:20)
[2019-06-04 18:21] VITALS: PULSE 78
[2019-06-04] MEDS: carvediloL 12.5 MG TABLET 25 MG PO (18:21)
[2019-06-04] MEDS: hydrALAZINE 10 MG TABLET PO ×2 (18:22→21:10)
[2019-06-04] MEDS: FLUTICASONE PROPIONATE 0.05% NA SPR 16 GM BTL (*BKC) 1 SPRAY NASAL (21:10)
[2019-06-04] MEDS: PANTOPRAZOLE 40 MG TABLET PO (21:10)
[2019-06-04 23:48] VITALS: BP 124/73; PULSE 76; RESP 16; TEMP 36.6; O2SAT 99
--- NOTE | 2019-06-05 00:51 | PC.NURSE ---
Sleeping, resp even. Needwed objectsa in reach.
--- NOTE | 2019-06-05 03:28 | PC.NURSE ---
0305 Pt up to the bathroom with her walker and standby assist of one. Pt voided and returned to bed with her walker and standby assist of one.
--- NOTE | 2019-06-05 05:00 | ECG_ITS ---
Measurements Intervals [place] Rate: 81 P: 11 [place]: 171 QRS: 41 QRSD: 93 T: 44 QT: 387 QTc: 451 Interpretive Statements SINUS RHYTHM VENTRICULAR PREMATURE COMPLEX DELAYED PRECORDIAL R/S TRANSITION BORDERLINE ECG Electronically Signed On 06-05-2019 12:09:20 PARK AIDE by Petar Saunders D.O.
[2019-06-05 05:50] LABS: Hematocrit 24.5 % (35.0-42.0); Hemoglobin 7.9 g/dL (11.7-13.8); Immature Platelet Fraction Pct 7.5 % (1.0-7.0); Mean Corpuscular HGB Conc 32.2 g/dL (32.0-36.0); Mean Corpuscular Hemoglobin 30.7 pg (27.0-31.0); Mean Corpuscular Volume 95.3 fL (78.0-102.0); Mean Platelet Volume 12.1 fl (9.2-11.8); Platelet Count Result 49 K/mm3 (150-420); Red Blood Count 2.57 M/mm3 (4.20-5.40); Red Cell Distribution Width 17.2 % (11.6-14.4); White Blood Count 4.1 K/mm3 (4.8-10.8)
[2019-06-05 06:03] LABS: Albumin Level 1.1 g/dL (3.4-5.0); Alkaline Phosphatase 107 U/L (46-116); Aspartate Amino Transferase 8 U/L (15-37); Bilirubin,Total 0.2 mg/dL (0.00-1.00); Blood Urea Nitrogen 33 mg/dL (7-18); Calcium 8.2 mg/dL (8.5-10.1); Carbon Dioxide 20 mmol/L (21-32); Chloride 105 mmol/L (98-108); Estimated CRCL calculation 15 ml/min; Estimated Glomerular Filt Rate 17; Glucose 93 mg/dL (70-99); Osmolality Calculated 289 mOsm/kg (285-295); Sodium 136 mmol/L (136-145); Total Protein 4.5 g/dL (6.4-8.2)
[2019-06-05 06:04] LABS: Alanine Aminotransferase < 6 U/L (14-59)
--- NOTE | 2019-06-05 07:33 | PC.NURSE ---
Up in chair. Needed objects in reach.
[2019-06-05 08:15] VITALS: BP 124/67; PULSE 79; RESP 18; TEMP 36.4; O2SAT 100
[2019-06-05 09:41] VITALS: PULSE 84
[2019-06-05] MEDS: carvediloL 12.5 MG TABLET 25 MG PO ×2 (09:41→17:37)
[2019-06-05] MEDS: CLONIDINE HCL 0.1 MG TABLET PO ×2 (09:41→17:38)
[2019-06-05] MEDS: MONTELUKAST SODIUM 10 MG TABLET PO (09:41)
[2019-06-05] MEDS: allopurinoL 100 MG TABLET PO (09:41)
[2019-06-05] MEDS: PANTOPRAZOLE 40 MG TABLET PO ×2 (09:42→21:07)
[2019-06-05] MEDS: CHOLECALCIFEROL 1,000 UNIT TABLET 1000 UNITS PO (09:42)
[2019-06-05] MEDS: VITAMIN B COMPLEX CAPSULE 1 CAP PO (09:42)
[2019-06-05] MEDS: hydrALAZINE 10 MG TABLET PO ×4 (09:42→21:07)
--- NOTE | 2019-06-05 10:50 | PC.NURSE ---
Left arm noted to be weeping. Patient states it was weeping at the other hospital as well. Skin to area shows no redness. Site cleansed well. 4x4 and medipore applied to site.Patient tolerated well. PARADISE Marcus notified.
--- NOTE | 2019-06-05 10:50 | PC.NURSE ---
Physical Therapy in room to work with patient.
--- NOTE | 2019-06-05 13:50 | PC.NURSE ---
Pt. back to bed with walker and gait belt and 1 ast. Gait steady. Nurse assisted patient to position legs in bed. 2+ pitting edema noted from lower shins to top of thighs. RAILWAY SHUNTER Amrit notified. N.O. received for Lasix PO 40mg x1 and 20 mg daily. LEON wraps applied to BLE.
--- NOTE | 2019-06-05 14:30 | PC.NURSE ---
Patient resting in bed with BLE elevated on pillow. No need at this time. Call light and belongings at side. Daughter in room to visit with patient.
[2019-06-05 16:10] VITALS: BP 138/76; PULSE 85; RESP 18; TEMP 36.5; O2SAT 98
--- NOTE | 2019-06-05 17:20 | PC.NURSE ---
Patient walking back from bathroom to chair. Patient got to chair and states her legs gave out. Nurse assisted neema to sitdown in chair. Patient states legs Just gave out. Patient states she feels okay after getting to sit. B/P during event 130/70. HR 96. States her legs are just tired. Rositatent currently sitting up in chair eating supper and denies any other needs.
[2019-06-05 17:37] VITALS: PULSE 96
[2019-06-05] MEDS: FUROSEMIDE 40 MG TABLET PO (17:37)
--- NOTE | 2019-06-05 18:45 | PC.NURSE ---
Patient back to bed from bathroom with walker, gait belt and 1 ast. Required moderate to max assist to lift legs into bed and position in bed. Resting with hob elevated, pillow applied under bilateral legs.
--- NOTE | 2019-06-05 20:55 | PC.NURSE ---
Patient ambulated to bathroom with walker, gait belt and one assist. Patient ambulated back as far as bedside chair and sat down there while nurse straightened bed linen. Patient then stood to pull down pants and then again to pull pajama pants up. Patient stood a couple times and sat back down, saying her legs were weak. Let patient sit for a couple minutes and then she said she was ready to walk back to bed. Patient took 2-3 steps and turned away from chair towards bed and then came backwards into nurse. Nurse kept patient from falling using the gait belt but was unable to get patient back to the bedside chair and slowly eased patient to the floor. Nurse called for 2nd nurse and together were able to get patient back up on the chair. Nurses moved bedside chair next to the bed and patient was assisted to the bed with no injuries. Call light in reach.
--- NOTE | 2019-06-05 21:05 | PC.NURSE ---
Dr Alcantara notified of patient being eased slowly to the floor by nurse due to patient's legs giving out on her. Dr asked for VS to be taken and called to him.
[2019-06-05] MEDS: DOCUSATE SODIUM 100 MG CAPSULE PO (21:07)
[2019-06-05] MEDS: FLUTICASONE PROPIONATE 0.05% NA SPR 16 GM BTL (*BKC) 1 SPRAY NASAL (21:07)
[2019-06-05 21:10] VITALS: BP 117/65; PULSE 86; RESP 18; TEMP 35.9; O2SAT 99
--- NOTE | 2019-06-05 21:21 | PC.NURSE ---
MD notified of patient's status and current vital signs. No new orders at this time.
--- NOTE | 2019-06-05 22:50 | PC.NURSE ---
Patient appears to be sleeping by the rise and fall of her chest. Respirations even and unlabored. No distress noted. Call light in reach.
--- NOTE | 2019-06-05 23:30 | PC.NURSE ---
Patient assisted to/from bedside commode per 2 nurses using gait belt and walker. Patient still complaining of legs being weak. Call light in reach.
[2019-06-06] VITALS (15 sets, daily range): BP systolic 112–165; BP diastolic 51–96; PULSE 76–125; RESP 10–20; TEMP 36.3–36.9; O2SAT 87–100
--- NOTE | 2019-06-06 01:00 | PC.NURSE ---
Patient appears to be sleeping by the rise and fall of her chest. Respirations even and unlabored. No distress noted. Call light in reach.
--- NOTE | 2019-06-06 02:50 | PC.NURSE ---
Patient assisted to bedside commode and back to bed per 2 nurses using gait belt and walker. Patient complaining of her legs not wanting to hold her up. Call light in reach.
--- NOTE | 2019-06-06 03:20 | PC.NURSE ---
Patient appears to be sleeping by the rise and fall of her chest. Respirations even and unlabored. No distress noted. Call light in reach.
--- NOTE | 2019-06-06 04:45 | PC.NURSE ---
Patient assisted to/from bedside commode per 2 nurses using gait belt and walker. Patient did well this time. Patient told nurses that when she can't stand it's like her legs feel numb. Call light in reach.
--- NOTE | 2019-06-06 06:00 | PC.NURSE ---
Patient appears to be sleeping by the rise and fall of her chest. Respirations even and unlabored. No distress noted. Call light in reach.
--- NOTE | 2019-06-06 06:35 | PC.NURSE ---
Patient to/from bedside commode per 2 nurses using gait belt and walker. Patient did much better then previous times. Call light in reach.
[2019-06-06 07:04] LABS: Hematocrit 23.6 % (35.0-42.0); Hemoglobin 7.6 g/dL (11.7-13.8); Immature Platelet Fraction Pct 7.7 % (1.0-7.0); Mean Corpuscular HGB Conc 32.2 g/dL (32.0-36.0); Mean Corpuscular Hemoglobin 30.4 pg (27.0-31.0); Mean Corpuscular Volume 94.4 fL (78.0-102.0); Mean Platelet Volume 13.1 fl (9.2-11.8); Platelet Count Result 45 K/mm3 (150-420); Red Cell Distribution Width 17.5 % (11.6-14.4); White Blood Count 4.7 K/mm3 (4.8-10.8)
[2019-06-06 07:10] LABS: Anion Gap 15.5 mmol/L (7-16); Blood Urea Nitrogen 33 mg/dL (7-18); Calcium 8.1 mg/dL (8.5-10.1); Carbon Dioxide 19 mmol/L (21-32); Chloride 103 mmol/L (98-108); Estimated CRCL calculation 15 ml/min; Estimated Glomerular Filt Rate 17; Glucose 90 mg/dL (70-99); Osmolality Calculated 285 mOsm/kg (285-295); Potassium 3.5 mmol/L (3.5-5.1); Sodium 134 mmol/L (136-145)
--- NOTE | 2019-06-06 08:45 | PC.NURSE ---
Addendum entered by Lissett Law RN 06/06/19 16:48: 02 @ 4l per nc placed on patient due to 02 sat 0f 87%. Original Note: Patient transfered from bed to bathroom with 1 ast, gait belt and walker. Patient transfered fair. Sat on toliet, had small BM. [facility] to provided pericare self, pulled up underwear and depends. Patient able to adjust pad with minimal help. Patient noted to be short of breath. 02 sat 97% on room air, heart rate 96. Patient sat back down on toliet to recover for several minutes and catch breath. Patient states I am ready to go. [facility] with 1 ast, gait belt and walker. Patient was transferring fair until reached sink outside of bathroom door, This nurse was present, Patient stated that her legs are gonna give out, nurse attempted to assist patient to sit on rollater walker, patient unable to hold weight on legs, patient became limp and unreponsive. This nurse lowered patient to ground and called for help. Patient resting on floor, pillow applied under head. PARADISE Marcus came to room, Rapid Response team activated. Patient unresponsive at this time. Pupils fixed and pinpoint, fixed to right. Patient unrepsonsive to voice and pain.Unable to squeeze hand to command or open/close eyes to command. Vital signs obtained. Breathing shallow. Breath sounds heard in all lobes. pulse tachy. EKG obtained. Dr. Argueta and PARADISE Marcus in room.
--- NOTE | 2019-06-06 08:49 | ECG_ITS ---
Measurements Intervals [place] Rate: 91 P: 69 [place]: 174 QRS: 61 QRSD: 94 T: 88 QT: 335 QTc: 414 Interpretive Statements SINUS RHYTHM ATRIAL PREMATURE COMPLEX DELAYED PRECORDIAL R/S TRANSITION BASELINE WANDER- I, II, III, AVR, AVL, AVF, V1-V6 BORDERLINE ECG Electronically Signed On 06-06-2019 9:19:55 HAND INSERTER OPERATOR by Petar Saunders D.O.
--- NOTE | 2019-06-06 08:50 | PC.NURSE ---
Patient becoming more responsive. Able to open and close eyes to command, response delayed. EKG obtained. Vital signs cont. to be monitored. Patient transfered from floor to bed with assist of 6x persons. Patient breathing patterns returning to normal. Sewing Machine Tester weak. Patient attempting to speak but speech mumbled. Pupils continued to be fixed. Lab in room to draw blood.
--- NOTE | 2019-06-06 08:55 | PC.NURSE ---
Patient resting in bed. 02@4l per nc on. Patient experience designer strong, able to push against nurses hands with bilateral feet. [place] Operator and pushes equal bilaterally. Able to repsond verbally. states she does not remember what happened. Vital signs cont. to be monitored. Pupils continued to be pinpoint and fixed. PARADISE Marcus and agree to patient needs to have head CT. Patient to be taken down via bed.
--- NOTE | 2019-06-06 09:00 | PC.NURSE ---
Patient fully responsive.Talking well.Denies any pain at this time. Cont. on 02@4l per nc. Environment Coordinator strong, pupils continue fixed and pinpoint. Patient taken down to CT via bed by this nurse and Nurse Danna. Patient tolerated well.
[2019-06-06 09:05] LABS: Hemoglobin 8.6 g/dL (11.7-13.8); Immature Platelet Fraction Pct 8.1 % (1.0-7.0); Mean Corpuscular HGB Conc 31.9 g/dL (32.0-36.0); Mean Corpuscular Hemoglobin 30.3 pg (27.0-31.0); Mean Corpuscular Volume 95.1 fL (78.0-102.0); Mean Platelet Volume 12.8 fl (9.2-11.8); Platelet Count Result 55 K/mm3 (150-420); Red Blood Count 2.84 M/mm3 (4.20-5.40); Red Cell Distribution Width 17.5 % (11.6-14.4); White Blood Count 5.9 K/mm3 (4.8-10.8)
--- NOTE | 2019-06-06 09:15 | PC.NURSE ---
Patient back to room from head CT via bed. Patient pulled up in bed with 2x assist. 02@ 4l per nc decreased to 3l. 02 sat 99%. Vital signs stable. Pupils remain fixed. MANAGER AGENCY Amrit in room speaking with patient. Patient states she remembers her legs going weak but does not remember what happened after that until the nurse was taking her down for a test in her bed. Patient states she is feeling better. Daughters here, at bedside with patient. Call garcia at side. Patient placed on gambling monitor per order. Heart rhythm showing Sinus rhythm. Vital signs monitor set to monitor B/p, HR, and 02 [id number].
--- NOTE | 2019-06-06 09:19 | PM.IMPN ---
Progress Note: A&P Assessment and Plan (1) Diverticulitis of large intestine with perforation and abscess with bleeding: Code(s): K57.21 - Diverticulitis of large intestine with perforation and abscess with bleeding <VASYL Macdonald - Last Filed: 06/06/19 11:54> Status: Acute <Raheemalan ClaytonVASYL Overton - Last Filed: 06/06/19 11:54> Assessment and Plan: - CT indicates Sigmoid diverticulitis and multiple diverticular abscesses - patient was admitted to [place] in 2019 for diverticulitis with perforation - continue low-fiber diet and instructed otherwise - follow-up with Dr. Lerner [facility] office on June 10 2019 and 9:30 a.m. -continue MiraLax 17 g by mouth daily as needed to keep bowels moving regularly. If no bowel movement in 48 hours to take witi-ljk-zsegmnz laxatives -eventually sigmoid resection may be required -2nd course of antibiotics completed - gastric ulcer also present stable on PPIs -abdominal x-ray 05/30/2019indicate nonobstructive bowel gas pattern <DARION MacdonaldC - Last Filed: 06/06/19 11:54> (2) Hyperlipidemia: Code(s): E78.5 - Hyperlipidemia, unspecified <ELEAZAR Macdonald-Osman - Last Filed: 06/06/19 11:54> Status: Acute <VASYL Macdonald - Last Filed: 06/06/19 11:54> Assessment and Plan: continue statins <VASYL Macdonald - Last Filed: 06/06/19 11:54> (3) Chronic anemia: Code(s): D64.9 - Anemia, unspecified <ELEAZAR Macdonald-C - Last Filed: 06/06/19 11:54> Status: Acute <ELEAZAR Macdonald-Osman - Last Filed: 06/06/19 11:54> Assessment and Plan: - secondary to chronic kidney disease - her hemoglobin baseline appears to be 8 currently 7.9 - she is a patient of Dr. Telles at [place]. a bone marrow biopsy was done about 5 years ago and was reported unremarkable. - continue Epogen on Wednesdays and Fridays <VASYL Macdonald - Last Filed: 06/06/19 11:54> (4) Chronic kidney disease, stage 4 (severe): Code(s): N18.4 - Chronic kidney disease, stage 4 (severe) <VASYL Macdonald - Last Filed: 06/06/19 11:54> Status: Chronic <VASYL Macdonald - Last Filed: 06/06/19 11:54> Assessment and Plan: - secondary to hypertension and vascular disease upper quadrant ultrasound on 05/26 indicates: 1. Cholelithiasis. 2. Mild increased bilateral renal cortical echogenicity consistent with medical renal disease. No hydronephrosis. 3. Hepatic and pancreatic cysts. - nephrology consulted while in-patient at [facility] -baseline creatinine between 2.5 and 3.0. Patient currently at baseline -will avoid nephrotoxins agents - provide supportive therapy -will cautiously use diuretics - continue Epogen shots Friday <VASYL Macdonald - Last Filed: 06/06/19 11:54> (5) Hypertension: Qualifiers: Hypertension type: essential hypertension Qualified Code(s): I10 - Essential (primary) hypertension <VASYL Macdonald - Last Filed: 06/06/19 11:54> Code(s): I10 - Essential (primary) hypertension <VASYL Macdonald - Last Filed: 06/06/19 11:54> Status: Chronic <VASYL Macdonald - Last Filed: 06/06/19 11:54> Assessment and Plan: -vital signs stable - continue, hydralazine and carvedilol - will adjust medication as needed - vital signs is ordered <VASYL Macdonald - Last Filed: 06/06/19 11:54> (6) Generalized weakness: Code(s): R53.1 - Weakness <VASYL Macdonald - Last Filed: 06/06/19 11:54> Status: Acute <VASYL Macdonald - Last Filed: 06/06/19 11:54> Assessment and Plan: -Exhibit tolerance during physical activity as evidenced by a normal fluctuation of vital signs during physical activity. -Patient will be ability to perform required activities of daily livin
[2019-06-06 09:24] LABS: Albumin Level 1.3 g/dL (3.4-5.0); Alkaline Phosphatase 124 U/L (46-116); Anion Gap 16.8 mmol/L (7-16); Aspartate Amino Transferase 12 U/L (15-37); Bilirubin,Total 0.2 mg/dL (0.00-1.00); Blood Urea Nitrogen 33 mg/dL (7-18); Calcium 8.2 mg/dL (8.5-10.1); Carbon Dioxide 17 mmol/L (21-32); Chloride 103 mmol/L (98-108); Estimated CRCL calculation 14 ml/min; Estimated Glomerular Filt Rate 16; Glucose 97 mg/dL (70-99); INR 1.6; Osmolality Calculated 283 mOsm/kg (285-295); Potassium 3.8 mmol/L (3.5-5.1); Prothrombin Time 15.9 Seconds (9.64-11.0); Sodium 133 mmol/L (136-145); Total Protein 5.7 g/dL (6.4-8.2); Troponin I 0.04 ng/mL (0.00-0.056)
[2019-06-06 09:26] LABS: Ammonia 21 umol/L (11-32); Magnesium 1.4 mg/dL (1.8-2.4)
[2019-06-06 09:43] LABS: Alanine Aminotransferase < 6 U/L (14-59)
--- NOTE | 2019-06-06 09:55 | PC.NURSE ---
0849 Daughter notified of patient's status. They will be right up.
[2019-06-06 10:46] LABS: CRP 2.4 mg/dL (0.0-0.9)
[2019-06-06 10:54] LABS: Lactic Acid Reflex 2.2 mmol/L (0.4-2.0)
[2019-06-06 10:58] LABS: Add Urine Microscopic? YES; Appearance Urine Sl Cloudy (Clear); Bilirubin Urine Negative (Negative); Blood Urine Negative (Negative); Color Urine Yellow (Yellow); Glucose Urine UA Negative (Negative); Ketones Urine Negative (Negative); Leukocyte Esterase Ur Negative (Negative); Nitrate Urine Negative (Negative); Protein Urine Negative (Negative); Urobilinogen Urine 0.2 mg/dL (0.2-1.0)
[2019-06-06] MEDS: MONTELUKAST SODIUM 10 MG TABLET PO (10:58)
[2019-06-06] MEDS: carvediloL 12.5 MG TABLET 25 MG PO (10:58)
[2019-06-06] MEDS: VITAMIN B COMPLEX CAPSULE 1 CAP PO (10:58)
[2019-06-06] MEDS: hydrALAZINE 10 MG TABLET PO ×2 (10:58→13:14)
[2019-06-06] MEDS: CHOLECALCIFEROL 1,000 UNIT TABLET 1000 UNITS PO (10:58)
[2019-06-06] MEDS: CLONIDINE HCL 0.1 MG TABLET PO (10:59)
[2019-06-06] MEDS: FUROSEMIDE 20 MG TABLET PO (11:00)
[2019-06-06] MEDS: allopurinoL 100 MG TABLET PO (11:00)
[2019-06-06] MEDS: PANTOPRAZOLE 40 MG TABLET PO (11:00)
[2019-06-06 11:02] LABS: Bacteria Urine Trace /hpf; RBC Urine None seen /hpf (0-2); Renal Epithelial Cells Urine Moderate /hpf; WBC Urine None seen /hpf (0-3)
[2019-06-06] MEDS: MAGNESIUM SULF 2 GM/WATER 50ML 2 GM/50 ML BAG IVPB (13:14)
[2019-06-06 13:19] LABS: Reflex Lactic Acid Yes or No Add Lactic
[2019-06-06 13:20] LABS: BNP 1330 pg/mL (0-100)
--- NOTE | 2019-06-06 13:56 | PC.NURSE ---
Patient changed from Swing bed to Inpatient Status.
[2019-06-06 13:57] LABS: Lactic Acid 0.7 mmol/L (0.4-2.0)
--- NOTE | 2019-06-07 06:27 | P.PNCROSS_ITS ---
Event Note Event Note Event Note: 6:15 AM Pt. c/o right knee pain, onset ~ 6 hours ago. No hx of contusion or injury. Seizure yesterday where she was eased to the floor. No c/o knee pain following this. Both legs have been very weak. Hgb this AM 6.9, Hct = 21. Both are down from 7.6 and 21 two days ago res pectively. 99.1 - 74- 20 109/65 O) Alert and oriented. Right lateral knee is swollen with pitting. Medial knee is ecchymotic with minor tenderness. Passive flexion to 20 degrees causes pain. A) right knee hemarthrosis with drop in hemoglobin right knee pain thrombocytopenia P) Check CT of right knee. Monitor hemoglobin. Transfuse if further drop.
--- NOTE | 2019-06-07 10:42 | PM.DS ---
DS: Diagnosis Admitting Diagnosis Admitting Diagnosis: Diverticulitis of large intestine with perforation and abscess with bleeding <VASYL Macdonald - Last Filed: 06/07/19 10:45> Discharge Diagnosis (1) Diverticulitis of large intestine with perforation and abscess with bleeding: Code(s): K57.21 - Diverticulitis of large intestine with perforation and abscess with bleeding <ELEAZAR Macdonald-C - Last Filed: 06/07/19 10:45> Status: Acute <ELEAZAR Macdonald-C - Last Filed: 06/07/19 10:45> Assessment and Plan: - CT indicates Sigmoid diverticulitis and multiple diverticular abscesses - patient was admitted to [facility] in 2019 for diverticulitis with perforation - continue low-fiber diet and instructed otherwise - follow-up with Dr. Lerner [facility] contents office on June 10 2019 and 9:30 a.m. -continue MiraLax 17 g by mouth daily as needed to keep bowels moving regularly. If no bowel movement in 48 hours to take [id number]-eitrcmt laxatives -eventually sigmoid resection may be required -2nd course of antibiotics completed - gastric ulcer also present stable on PPIs -abdominal x-ray 05/30/2019indicate nonobstructive bowel gas pattern <ELEAZAR Macdonald-C - Last Filed: 06/07/19 10:45> (2) Hyperlipidemia: Code(s): E78.5 - Hyperlipidemia, unspecified <ELEAZAR Macdonald-C - Last Filed: 06/07/19 10:45> Status: Acute <ELEAZAR Macdonald-C - Last Filed: 06/07/19 10:45> Assessment and Plan: continue statins <ELEAZAR Macdonald-Osman - Last Filed: 06/07/19 10:45> (3) Chronic anemia: Code(s): D64.9 - Anemia, unspecified <ELEAZAR Macdonald-C - Last Filed: 06/07/19 10:45> Status: Acute <ELEAZAR Macdonald-C - Last Filed: 06/07/19 10:45> Assessment and Plan: - secondary to chronic kidney disease - her hemoglobin baseline appears to be 8 - she is a patient of Dr. Telels at [facility]. a bone marrow biopsy was done about 5 years ago and was reported unremarkable. - continue Epogen on Wednesdays and Fridays <VASYL Macdonald - Last Filed: 06/07/19 10:45> (4) Chronic kidney disease, stage 4 (severe): Code(s): N18.4 - Chronic kidney disease, stage 4 (severe) <VASYL Macdonald - Last Filed: 06/07/19 10:45> Status: Chronic <VASYL Macdonald - Last Filed: 06/07/19 10:45> Assessment and Plan: - secondary to hypertension and vascular disease upper quadrant ultrasound on 05/26 indicates: 1. Cholelithiasis. 2. Mild increased bilateral renal cortical echogenicity consistent with medical renal disease. No hydronephrosis. 3. Hepatic and pancreatic cysts. - nephrology consulted while in-patient at [facility] -baseline creatinine between 2.5 and 3.0. Patient currently at baseline -will avoid nephrotoxins agents - provide supportive therapy -will cautiously use diuretics - continue Epogen shots Friday <VASYL Macdonald - Last Filed: 06/07/19 10:45> (5) Hypertension: Qualifiers: Hypertension type: essential hypertension Qualified Code(s): I10 - Essential (primary) hypertension <VASYL Macdonald - Last Filed: 06/07/19 10:45> Code(s): I10 - Essential (primary) hypertension <VASYL Macdonald - Last Filed: 06/07/19 10:45> Status: Chronic <VASYL Macdonald - Last Filed: 06/07/19 10:45> Assessment and Plan: -vital signs stable - continue, hydralazine and carvedilol - will adjust medication as needed - vital signs is ordered <VASYL Macdonald - Last Filed: 06/07/19 10:45> (6) Generalized weakness: Code(s): R53.1 - Weakness <VASYL Macdonald - Last Filed: 06/07/19 10:45> Status: Acute <ELEAZAR Macdonald-C - Last Filed: 06/07/19 10:45> Assessment and Plan: -Exhibit tolerance during
--- NOTE | 2019-06-09 01:42 | PM.EVENT ---
Event Note Event Note Event Note: I had [id number] time with this patient. For this patient encounter, I reviewed and agree with Nabil Shaffer CHARGE AIDE's documentation, treatment plan, and medical decision making. Pt's diverticulitis related abscesses have enlarged. Abdomen is soft. Transfer to [facility] for drainage. Right knee pain is mild.KNee is swollen with lateral edema. Hgb hovering around 7.2. CT shows no fx. No sz. activity on [employer].
== END 2019-06-06 13:54 | disposition critical access hospital (66) | DRG 378 ==
PROVIDERS: Nurse Practitioner; Admitting Provider Emergency Medicine; PCP Internal Medicine; Visit Provider Emergency Medicine
DX: K57.21 Diverticulitis of large intestine with perforation and abscess with bleeding (principal); N18.4 Chronic kidney disease, stage 4 (severe); D61.818 Other pancytopenia; I12.9 Hypertensive chronic kidney disease with stage 1 through stage 4 chronic kidney disease, or unspecified chronic kidney disease; M10.9 Gout, unspecified; E78.5 Hyperlipidemia, unspecified; D63.1 Anemia in chronic kidney disease; R41.89 Other symptoms and signs involving cognitive functions and awareness; Z85.3 Personal history of malignant neoplasm of breast
CPT/HCPCS: 36415; 70450; 71046; 80048; 80053; 81001; 82140; 83605; 83735; 83880; 84484; 85027; 85055; 85610; 85730; 86140; 93005; 97110; 97161; 97165; 97530; A9270; J3475

== ENCOUNTER 2019-06-06 13:56 | Inpatient (IN) | payer MEDICARE, SELFPAY ==
--- NOTE | ~2019-06-06 | CT_ITS ---
EXAMINATION: CT knee RT wo con DATE: 06/07/2019 09:22 INDICATION: Right knee pain post fall one day prior TECHNIQUE: High resolution computed tomography (CT) of the right knee was performed without intraveno us contrast. Additional sagittal and coronal reconstructions were performed. Automated exposure contr ol and iterative reconstruction technique were employed. The dose-length product was 484.56 mGy-cm. COMPARISON: None FINDINGS: Bone alignment is normal. No fracture. Subtle chondrocalcinosis at the bilateral menisci. Mild joint space narrowing in the lateral compartment and mild to moderate joint space narrowing in the medial c ompartment which could be underestimated on nonweightbearing imaging. Moderate-sized knee joint effus ion without layering lipohemarthrosis. Diffuse subcutaneous edema extending throughout the visualized distal thigh, knee and into the proximal calf. Skin thickening along the anterolateral aspect of the mid to lower leg. Scattered vascular calcifications. IMPRESSION: 1. Moderate-sized right knee joint effusion no acute osseous abnormality. 2. Chondrocalcinosis and osteoarthritis at the right knee, mild to moderate in the medial compartment and mild in the lateral compartment although severity of joint space narrowing can be underestimated on nonweightbearing imaging. 3. Extensive nonspecific subcutaneous edema Reviewed, dictated and finalized at location A. LLATE LAW CLERK
--- NOTE | ~2019-06-06 | CT_ITS ---
EXAMINATION: CT abdomen pelvis wo con DATE: 06/07/2019 09:22 INDICATION: Anemia. Diarrhea. TECHNIQUE: Computed tomography (CT) of the abdomen and pelvis was performed without intravenous contr ast. Automated exposure control and iterative reconstruction technique were employed. The dose-length product was 703.51 mGy-cm. COMPARISON: CT abdomen and pelvis 05/26/2019, 05/15/19, 06/18/17 FINDINGS: The visualized portions of the lung bases demonstrate small pleural effusions, right worse than left. There is dependent passive atelectasis bilaterally. The heart size is normal. There is a s mall pericardial effusion. There is a small sliding hiatal hernia. There is diffuse hepatic steatosis . There are cysts in the liver measuring up to 2.0 cm. There are calcifications at the periphery of t he liver. There are gallstones in the gallbladder, which is decompressed. The spleen is normal. There is a 3.1 cm cystic lesion in the body of the pancreas with focal peripheral calcification. The adren al glands and right kidney are normal. There is a 9 mm cyst in left kidney. There is a 6 mm hemorrhag ic cyst in left kidney. There are scattered diverticula in the colon. The appendix is normal. There i s wall thickening of the sigmoid colon. There is a 5.0 x 1.5 cm abscess abutting the sigmoid colon on the left, worsened from 2.0 x 1.2 cm. There is a 6.5 x 4.0 cm abscess to the right of the sigmoid co lamar, worsened from 4.9 x 2.9 cm. There is a small volume of ascites. There is mild aortocaval and lef t para-aortic lymphadenopathy. There is a total right hip arthroplasty. There is screw fixation of le ft femoral head/neck. There is severe lower lumbar spondylosis. IMPRESSION: 1. Sigmoid diverticulitis with interval worsening of 2 perisigmoid abscesses. 2. Small volume of ascites. 3. Small pleural effusions, worsened from 05/26/2019. 4. 3.1 cm cystic lesion of the body of the pancreas, worsened from 06/18/2017 and stable from 06/13/2019 . The differential diagnosis includes pseudocyst, intraductal papillary mucinous neoplasm (IPMN), muc inous cystic neoplasm (MCN), serous cystadenoma, and neuroendocrine tumor. Consider endoscopic ultras ound with fine needle aspiration. Reviewed, dictated and finalized at location A. HIATRIC NP IMPRESSION: 1. Sigmoid diverticulitis with interval worsening of 2 perisigmoid abscesses. 2. Small volume of ascites. 3. Small pleural effusions, worsened from 05/26/2019. 4. 3.1 cm cystic lesion of the body of the pancreas, worsened from 06/18/2017 an d stable from 06/13/2019. The differential diagnosis includes pseudocyst, intradu ctal papillary mucinous neoplasm (IPMN), mucinous cystic neoplasm (MCN), serous cystadenoma, and neuroendocrine tumor. Consider endoscopic ultrasound with fin e needle aspiration.
[2019-06-06 14:00] VITALS: BMI 29.0
--- NOTE | 2019-06-06 14:52 | PM.DS ---
DS: Diagnosis Admitting Diagnosis Admitting Diagnosis: generalized weakness status post Diverticulitis of large intestine with perforation and abscess Discharge Diagnosis (1) Unresponsive episode: Code(s): R41.89 - Other symptoms and signs involving cognitive functions and awareness Status: Acute Assessment and Plan: possibly secondary to orthostatic hypotension versus TIA versus CVA versus seizure NIH score 2 CT of the head unremarkable troponin negative EKG sinus rhythm with occasional supraventricular premature complexes call to Dr. Cordova awaiting call back continue neuro checks Q hour, orthostatics blood pressure reading in telemetry sodium slightly decreased to 133 neck level slightly decreased 1.4 will give a Mag rider 2 g BMP and CMP in the a.m. patient will discharge at the swing program and become inpatient (2) Generalized weakness: Code(s): R53.1 - Weakness Status: Acute Assessment and Plan: once patient is stable she will restart the swing program (3) Chronic kidney disease, stage 4 (severe): Code(s): N18.4 - Chronic kidney disease, stage 4 (severe) Status: Chronic Assessment and Plan: - secondary to hypertension and vascular disease upper quadrant ultrasound on 05/26 indicates: 1. Cholelithiasis. 2. Mild increased bilateral renal cortical echogenicity consistent with medical renal disease. No hydronephrosis. 3. Hepatic and pancreatic cysts. - nephrology consulted while in-patient at [facility] -baseline creatinine between 2.5 and 3.0. Patient currently at baseline -will avoid nephrotoxins agents - provide supportive therapy -will cautiously use diuretics - continue Epogen shots Friday (5) Hypertension: (4) Diverticulitis of large intestine with perforation and abscess with bleeding: Code(s): K57.21 - Diverticulitis of large intestine with perforation and abscess with bleeding Status: Acute Assessment and Plan: - CT indicates Sigmoid diverticulitis and multiple diverticular abscesses - patient was admitted to [place] in 2019 for diverticulitis with perforation - continue low-fiber diet and instructed otherwise - [facility] 2019 and 9:30 a.m. -continue MiraLax 17 g by mouth daily as needed to keep bowels moving regularly. If no bowel movement in 48 hours to take mike-ohz-fouuvly laxatives -eventually sigmoid resection may be required -2nd course of antibiotics completed - gastric ulcer also present stable on PPIs -abdominal x-ray 05/30/2019indicate nonobstructive bowel gas pattern (5) Hyperlipidemia: Code(s): E78.5 - Hyperlipidemia, unspecified Status: Acute Assessment and Plan: continue statins (6) Hypertension: Qualifiers: Hypertension type: essential hypertension Qualified Code(s): I10 - Essential (primary) hypertension Code(s): I10 - Essential (primary) hypertension Status: Chronic Assessment and Plan: -vital signs stable - continue, hydralazine and carvedilol - will adjust medication as needed - vital signs is ordered (7) Breast cancer: Qualifiers: Breast location: unspecified site of breast Estrogen receptor status: unspecified Laterality: unspecified laterality Patient sex: female Qualified Code(s): C50.919 - Malignant neoplasm of unspecified site of unspecified female breast Code(s): C50.919 - Malignant neoplasm of unspecified site of unspecified female breast Status: Acute Assessment and Plan: Carcinoma in situ, status post lumpectomy and radiation therapy. (8) Edema: Qualifiers: Edema type: unspecified Qualified Code(s): R60.9 - Edema, unspecified Code(s): R60.9 - Edema, unspecified Status: Acute Assessment and Plan: patient will bilateral edema past Doppler negative for clots according to
--- NOTE | 2019-06-06 15:39 | PM.IMHP ---
H&P: HPI History of Present Illness Chief complaint: Needing acute monitoring with telmetry Narrative: Narrative: Grecia Patterson is a 78 year old female that presented to [facility] on 05/26/2019 for right flank pain CT indicated Sigmoid diverticulitis and multiple diverticular abscesses transfer to [facility]. she has a past medical history of breast cancer, chronic anemia, chronic kidney disease stage 4, and diverticular disease. [facility], nephrology, surgery and Infectious Disease was consulted. Patient was treated with with antibiotics with future plans for sigmoidectomy. Patient admitted in swing bed for rehabilitation due to decreased balance decreased mobility in severe limited function endurance and/or mobility rapid response on 06/06/2019; 06/06/19 09:19 rapid response called on patient today at approximately 830 a.m.. Patient walking from restroom to bed and she became unresponsive ,she was lowered to the floor by staff nurse. when I entered the room patient was on the floor and unresponsive unable to answer any questions, she was staring blankly into space, her eyes had rolled to the right side of her head, and she was foaming at the mouth. The episode lasted approximately 5-10 minutes ,she was not incontinent. vs at that time were 165/96 sat's were 88% and her hr was 125.She lung sounds her present ,tachycardia with pulse. 4 L nasal cannula was placed on the patient her sats increased to 95%. EKG, labs and CT ordered on patient. CT indicated normal aging brain. After the patient returned from CT she was more alert she was aware of her name, her age in patient and she was able to move all extremities with normal sensation. according to patient she can't recall ambulating from the restroom to her bed her legs feel weak. She cannot recall anything that happened after her laced with week. She cannot recall becoming unresponsive and sliding to the floor. I have contacted Dr. Cordova for recommendation. patient will no longer be a swing bed patient, be inpatient further monitor and test. her NIH score was 3 not at risk for CVA. patient is no longer a candidate for swing bed, she is being admitted for inpatient. Review of Systems Constitutional: Constitutional: Denies chills, Denies fever(s), Denies headache(s) and Reports weakness Cardiovascular: Cardiovascular: Denies chest pain at rest, Denies chest pain with activity, Reports leg edema ( bilateral), Denies dyspnea and Denies dyspnea on exertion Respiratory: Respiratory: Reports no additional respiratory complaints, Denies chest congestion, Denies cough, Denies dyspnea and Denies wheezing Gastrointestinal: Gastrointestinal: Denies heartburn, Denies diarrhea, Denies nausea and Denies vomiting Genitourinary: Genitourinary: Reports no additional female genitourinary complaints Musculoskeletal: Musculoskeletal: Reports muscle weakness ( bilateral lower extremities) Integumentary/Breasts: Skin/Breast: Reports system reviewed and no additional complaints, except as docu Neurologic: Denies confusion, Denies vertigo, Denies dizziness, Reports syncope, Denies headache(s) and Reports seizure-like activity Psychiatric: Psychiatric: Reports no additional psychiatric complaints [facility] Past Medical History Medical History (Updated 06/06/19 @ 11:49 by VASYL Macdonald) Breast cancer Carcinoma in situ, status post lumpectomy and radiation therapy. Chronic anemia She is a patient of Dr. Telles at [place]. A bone marrow biopsy done about 5 years ago was reportedly unremarkable. Chronic kidney disease, stage 4 (severe) Baseline creatinine around 3.0. Diverticular disease Diverticulitis of colon with perforation Summer 2018, hospitalized at [place]. Diverticulosis of colon with hemorrhage Summer 2018. Gout Hyperlipidemia Hypertension Surgical History Surgical History (Reviewed 05/26/19 @ 14:58 by Eddie
[2019-06-06 15:50] VITALS: BP 127/67; PULSE 92; RESP 18; TEMP 36.6; O2SAT 98
[2019-06-06 16:35] VITALS: PULSE 92
[2019-06-06] MEDS: levETIRAcetam 500 MG TABLET PO (17:43)
[2019-06-06] MEDS: hydrALAZINE 10 MG TABLET PO ×2 (17:43→20:55)
[2019-06-06] MEDS: SIMVASTATIN 10 MG TABLET PO (17:43)
--- NOTE | 2019-06-06 19:15 | PC.NURSE ---
Patient in bed watching tv. Respirations even and unlabored. BLE's elevated on pillow. Denies pain/complaints/needs @ this time. No distress noted. Call light in reach.
[2019-06-06 20:00] VITALS: BP 115/59; PULSE 84; RESP 20; TEMP 36.5; O2SAT 97
--- NOTE | 2019-06-06 20:32 | PM.EVENT ---
Event Note Event Note Event Note: Admitted s/p diverticulits perforation and abscess. In for strengthening. Episode of altered state of consciousness described in Nabil Shaffer's note. Post episode pt's INH score of 4 on my evaluation given for both legs effort against gravity. Daughter states pt's legs have been very week; has had trouble ambulating. Weakness best explained by deconditioning, not CVA. Nature of unresponsiveness, fixed eye gaze and rapid recovery of all findings are from a generalized sz. Agree with starting Keppra and follow up with neurology. I agree with findings, assessment and plan elucidated by Nabil Maloney.
[2019-06-06] MEDS: FLUTICASONE PROPIONATE 0.05% NA SPR 16 GM BTL (*BKC) 2 SPRAY NASAL (20:54)
[2019-06-06 20:55] VITALS: PULSE 80
[2019-06-06] MEDS: carvediloL 12.5 MG TABLET 25 MG PO (20:55)
[2019-06-06] MEDS: PANTOPRAZOLE 40 MG TABLET PO (20:55)
[2019-06-06] MEDS: CLONIDINE HCL 0.1 MG TABLET PO (20:56)
--- NOTE | 2019-06-06 21:16 | PC.NURSE ---
Patient took HS meds without difficulty. Patient now complaining of pain in her right thigh down to her knee. Repositioned patients legs and elevated them a little differently and patient wants to see how that helps before taking any pain medicine. Call light in reach.
--- NOTE | 2019-06-06 21:32 | ADMGEN ---
This patient, Grecia Patterson, was admitted to 2nd Floor Room 204-1. Patient/family oriented to hospital policies and general routines including ID bracelet, bed and alarms, visiting hours, pain management, procedures, bathroom and other care routines, personal items, smoking policy, room service/diet, and visiting hours. Valuables list has been completed. Information on how to activate the Rapid Response Team has been discussed. Patient/Family are encouraged to report perceived risks to care and to ask questions if they do not understand what they are told or what they should do.
--- NOTE | 2019-06-06 22:09 | PC.NURSE ---
Patient lying in bed watching tv and says her right leg/thigh/knee still hurts and wants the pain medicine offered earlier. Tramadol given for pain rated @ 5 on 0-10 scale. Patient denies any other pain/complaints/needs @ this time. Call light in reach.
--- NOTE | 2019-06-06 23:15 | PC.NURSE ---
Patient still watching tv. Reports right leg/knee pain now @ 4, saying the pain medicine really helped. BLE's elevated. No distress noted. Call light in reach.
[2019-06-07] VITALS (9 sets, daily range): BP systolic 104–134; BP diastolic 56–66; PULSE 74–88; RESP 16–20; TEMP 36.4–37.6; O2SAT 95–97
--- NOTE | 2019-06-07 | PC.NURSE ---
Patient awakened for VS but remained drowsy. Respirations even and unlabored. No distress noted. Call light in reach.
--- NOTE | 2019-06-07 00:40 | PC.NURSE ---
Patient called nurse to room to reposition patient's legs, saying the pain pill helped but her right knee is still hurting and she thought repositioning it may help. Patient denies any other pain/complaints/needs @ this time. No distress noted. Call light in reach.
--- NOTE | 2019-06-07 01:52 | PC.NURSE ---
Patient complaining of right knee still hurting and says the rest of the leg/thigh doesn't hurt @ all anymore but the knee pain is a constant ache and she rates it @ 8 on 0-10 scale. Patient given PRN [place] @ this time. Patient denies any other pain/complaints/needs @ this time. Call light in reach. Charge nurse aware of patient's continued complaint of right knee pain.
--- NOTE | 2019-06-07 02:40 | PC.NURSE ---
Patient appears to be sleeping by the rise and fall of her chest. Respirations even and unlabored. No distress noted. No evidence of pain noted. Call light in reach.
[2019-06-07 05:30] LABS: Hematocrit 21.2 % (35.0-42.0); Immature Platelet Fraction Pct 6.1 % (1.0-7.0); Mean Corpuscular HGB Conc 32.5 g/dL (32.0-36.0); Mean Corpuscular Hemoglobin 30.5 pg (27.0-31.0); Mean Corpuscular Volume 93.8 fL (78.0-102.0); Mean Platelet Volume 11.5 fl (9.2-11.8); Platelet Count Result 48 K/mm3 (150-420); Red Blood Count 2.26 M/mm3 (4.20-5.40); Red Cell Distribution Width 17.5 % (11.6-14.4)
[2019-06-07 05:40] LABS: Hemoglobin 6.9 g/dL (11.7-13.8)
[2019-06-07 05:41] LABS: BNP 944 pg/mL (0-100)
[2019-06-07 05:48] LABS: Lactic Acid 0.4 mmol/L (0.4-2.0)
--- NOTE | 2019-06-07 06:10 | PC.NURSE ---
0603 Dr. Argueta notified of pt's H&H results. No new orders at this time.
[2019-06-07 06:16] LABS: Anion Gap 13.8 mmol/L (7-16); Blood Urea Nitrogen 33 mg/dL (7-18); CRP 3.3 mg/dL (0.0-0.9); Calcium 8.1 mg/dL (8.5-10.1); Carbon Dioxide 20 mmol/L (21-32); Chloride 104 mmol/L (98-108); Estimated CRCL calculation 14 ml/min; Estimated Glomerular Filt Rate 16; Glucose 92 mg/dL (70-99); Magnesium 1.7 mg/dL (1.8-2.4); Osmolality Calculated 285 mOsm/kg (285-295); Potassium 3.8 mmol/L (3.5-5.1); Sodium 134 mmol/L (136-145)
--- NOTE | 2019-06-07 06:19 | PC.NURSE ---
Dr. Argueta here to see patient.
--- NOTE | 2019-06-07 06:23 | PC.NURSE ---
Dr. Argueta said to cancel the x-ray of the knee and he would order a CT scan of the right knee instead.
--- NOTE | 2019-06-07 06:29 | PC.NURSE ---
Patient reports right knee pain @ 3-4 on 0-10 scale but declined offer of another [place] saying that's her normal pain level for her legs. Patient aware Dr Argueta is changing test from x-ray to CT scan.
[2019-06-07 06:43] LABS: Creatine Kinase < 7 U/L (26-192)
--- NOTE | 2019-06-07 07:03 | PC.NURSE ---
Dr. Argueta called and said he wanted an H&H done at 1200 this afternoon (06/07/19)
[2019-06-07 08:31] LABS: Hematocrit 23.5 % (35.0-42.0); Hemoglobin 7.7 g/dL (11.7-13.8); Mean Corpuscular HGB Conc 32.8 g/dL (32.0-36.0); Mean Corpuscular Hemoglobin 30.9 pg (27.0-31.0); Mean Corpuscular Volume 94.4 fL (78.0-102.0); Mean Platelet Volume 11.7 fl (9.2-11.8); Platelet Count Result 48 K/mm3 (150-420); Red Blood Count 2.49 M/mm3 (4.20-5.40); Red Cell Distribution Width 17.5 % (11.6-14.4); White Blood Count 5.6 K/mm3 (4.8-10.8)
[2019-06-07] MEDS: allopurinoL 100 MG TABLET PO (08:35)
[2019-06-07 08:46] LABS: Troponin I 0.03 ng/mL (0.00-0.056)
[2019-06-07 09:21] LABS: Occult Blood Positive (Negative)
--- NOTE | 2019-06-07 09:27 | PM.IMPN ---
Progress Note: A&P Assessment and Plan (1) Seizure: Code(s): R56.9 - Unspecified convulsions Status: Acute (2) Unresponsive episode: Code(s): R41.89 - Other symptoms and signs involving cognitive functions and awareness Status: Acute Assessment and Plan: possibly secondary to orthostatic hypotension versus TIA versus CVA versus seizure NIH score 2 CT of the head unremarkable troponin negative EKG sinus rhythm with occasional supraventricular premature complexes call to Dr. Cordova awaiting call back continue neuro checks Q hour, orthostatics blood pressure reading in telemetry sodium slightly decreased to 133 neck level slightly decreased 1.4 will give a Mag rider 2 g BMP and CMP in the a.m. patient will discharge at the swing program and become inpatient (3) Generalized weakness: Code(s): R53.1 - Weakness Status: Acute Assessment and Plan: once patient is stable she will restart the swing program (4) Chronic kidney disease, stage 4 (severe): Code(s): N18.4 - Chronic kidney disease, stage 4 (severe) Status: Chronic Assessment and Plan: - secondary to hypertension and vascular disease upper quadrant ultrasound on 05/26 indicates: 1. Cholelithiasis. 2. Mild increased bilateral renal cortical echogenicity consistent with medical renal disease. No hydronephrosis. 3. Hepatic and pancreatic cysts. - nephrology consulted while in-patient at [facility] -baseline creatinine between 2.5 and 3.0. Patient currently at baseline -will avoid nephrotoxins agents - provide supportive therapy -will cautiously use diuretics - continue Epogen shots Friday (5) Hypertension: (5) Diverticulitis of large intestine with perforation and abscess with bleeding: Code(s): K57.21 - Diverticulitis of large intestine with perforation and abscess with bleeding Status: Acute Assessment and Plan: - CT indicates Sigmoid diverticulitis and multiple diverticular abscesses - patient was admitted to [facility] in 2019 for diverticulitis with perforation - continue low-fiber diet and instructed otherwise - follow-up with Dr. Yann floyd contents office on June 10 2019 and 9:30 a.m. -continue MiraLax 17 g by mouth daily as needed to keep bowels moving regularly. If no bowel movement in 48 hours to take [id number]-odo-vcfrssc laxatives -eventually sigmoid resection may be required -2nd course of antibiotics completed - gastric ulcer also present stable on PPIs -abdominal x-ray 05/30/2019indicate nonobstructive bowel gas pattern (6) Hyperlipidemia: Code(s): E78.5 - Hyperlipidemia, unspecified Status: Acute Assessment and Plan: continue statins (7) Hypertension: Qualifiers: Hypertension type: essential hypertension Qualified Code(s): I10 - Essential (primary) hypertension Code(s): I10 - Essential (primary) hypertension Status: Chronic Assessment and Plan: -vital signs stable - continue, hydralazine and carvedilol - will adjust medication as needed - vital signs is ordered (8) Breast cancer: Qualifiers: Breast location: unspecified site of breast Estrogen receptor status: unspecified Patient sex: female Laterality: unspecified laterality Qualified Code(s): C50.919 - Malignant neoplasm of unspecified site of unspecified female breast Code(s): C50.919 - Malignant neoplasm of unspecified site of unspecified female breast Status: Acute Assessment and Plan: Carcinoma in situ, status post lumpectomy and radiation therapy. (9) Edema: Qualifiers: Edema type: unspecified Qualified Code(s): R60.9 - Edema, unspecified Code(s): R60.9 - Edema, unspecified Status: Acute Assessment and Plan: patient will bilateral edema past Doppler negative for clots according to notes nephrology okayed use of diuretics with carolyn
[2019-06-07] MEDS: carvediloL 12.5 MG TABLET 25 MG PO ×2 (09:37→21:57)
[2019-06-07] MEDS: PANTOPRAZOLE 40 MG TABLET PO ×2 (09:37→21:57)
[2019-06-07] MEDS: MONTELUKAST SODIUM 10 MG TABLET PO (09:37)
[2019-06-07] MEDS: CHOLECALCIFEROL 1,000 UNIT TABLET 1000 UNITS PO (09:39)
[2019-06-07] MEDS: hydrALAZINE 10 MG TABLET PO ×2 (09:39→21:57)
[2019-06-07] MEDS: FUROSEMIDE 20 MG TABLET PO (09:39)
[2019-06-07] MEDS: CLONIDINE HCL 0.1 MG TABLET PO ×2 (09:40→21:57)
[2019-06-07] MEDS: VITAMIN B COMPLEX CAPSULE 1 CAP PO (09:40)
[2019-06-07] MEDS: MAGNESIUM SULF 2 GM/WATER 50ML 2 GM/50 ML BAG IVPB (09:51)
[2019-06-07 11:52] LABS: Hematocrit 22.5 % (35.0-42.0); Hemoglobin 7.2 g/dL (11.7-13.8)
--- NOTE | 2019-06-07 12:09 | PC.NURSE ---
Amrit notify of H/H lab results. No new orders.
--- NOTE | 2019-06-07 13:40 | PM.IMPN ---
Progress Note: A&P Assessment and Plan (1) Unresponsive episode: Code(s): R41.89 - Other symptoms and signs involving cognitive functions and awareness Status: Acute Assessment and Plan: possibly secondary to orthostatic hypotension versus TIA versus CVA versus seizure NIH score 2 CT of the head unremarkable troponin negative EKG sinus rhythm with occasional supraventricular premature complexes call to Dr. Cordova awaiting call back continue neuro checks Q hour, orthostatics blood pressure reading in telemetry sodium slightly decreased to 133 neck level slightly decreased 1.4 will give a Mag rider 2 g BMP and CMP in the a.m. patient will discharge at the swing program and become inpatient (2) Generalized weakness: Code(s): R53.1 - Weakness Status: Acute Assessment and Plan: once patient is stable she will restart the swing program (3) Chronic kidney disease, stage 4 (severe): Code(s): N18.4 - Chronic kidney disease, stage 4 (severe) Status: Chronic Assessment and Plan: - secondary to hypertension and vascular disease upper quadrant ultrasound on 05/26 indicates: 1. Cholelithiasis. 2. Mild increased bilateral renal cortical echogenicity consistent with medical renal disease. No hydronephrosis. 3. Hepatic and pancreatic cysts. - nephrology consulted while in-patient at [facility] -baseline creatinine between 2.5 and 3.0. Patient currently at baseline -will avoid nephrotoxins agents - provide supportive therapy -will cautiously use diuretics - continue Epogen shots Friday (5) Hypertension: (4) Diverticulitis of large intestine with perforation and abscess with bleeding: Code(s): K57.21 - Diverticulitis of large intestine with perforation and abscess with bleeding Status: Acute Assessment and Plan: - CT indicates Sigmoid diverticulitis and multiple diverticular abscesses - patient was admitted to [place] in 2019 for diverticulitis with perforation - continue low-fiber diet and instructed otherwise - [facility] and 9:30 a.m. -continue MiraLax 17 g by mouth daily as needed to keep bowels moving regularly. If no bowel movement in 48 hours to take xuna-ewl-ujeypyb laxatives -eventually sigmoid resection may be required -2nd course of antibiotics completed - gastric ulcer also present stable on PPIs -abdominal x-ray 05/30/2019indicate nonobstructive bowel gas pattern repeat CT of the abdomen Abdomen/Pelvis CT 06/07/19 09:28 IMPRESSION: 1. Sigmoid diverticulitis with interval worsening of 2 perisigmoid abscesses. 2. Small volume of ascites. 3. Small pleural effusions, worsened from 05/26/2019. 4. 3.1 cm cystic lesion of the body of the pancreas, worsened from 06/18/2017 and stable from 06/13/2019. The differential diagnosis includes pseudocyst, intraductal papillary mucinous neoplasm (IPMN), mucinous cystic neoplasm (MCN), serous cystadenoma, and neuroendocrine tumor. Consider endoscopic ultrasound with fine needle aspiration. patient has an appointment with surgeon in the near future. Will evaluate results (5) Hyperlipidemia: Code(s): E78.5 - Hyperlipidemia, unspecified Status: Acute Assessment and Plan: continue statins (6) Hypertension: Qualifiers: Hypertension type: essential hypertension Qualified Code(s): I10 - Essential (primary) hypertension Code(s): I10 - Essential (primary) hypertension Status: Chronic Assessment and Plan: -vital signs stable - continue, hydralazine and carvedilol - will adjust medication as needed - vital signs is ordered (7) Breast cancer: Qualifiers: Breast location: unspecified site of breast Estrogen receptor status: unspecified Laterality: unspecified laterality Patient sex: female Qualified Code(s): C50.919 - Malignant neoplasm of unspecified site
[2019-06-07] MEDS: EPOETIN ALFA 10,000 UNITS/ML VIAL 10000 UNITS SUB-Q (15:38)
[2019-06-07 17:59] LABS: Hematocrit 24.4 % (35.0-42.0); Hemoglobin 7.8 g/dL (11.7-13.8)
[2019-06-07] MEDS: FLUTICASONE PROPIONATE 0.05% NA SPR 16 GM BTL (*BKC) 2 SPRAY NASAL (21:56)
[2019-06-07] MEDS: levETIRAcetam 500 MG TABLET 250 MG PO (22:05)
--- NOTE | 2019-06-07 22:05 | PC.NURSE ---
Patient awakened easily. Ravin wraps removed from BLE's. BLE's remain edematous along with her BUE's. Patient asked for bedpan. Nurse agreed to bedpan but talked to patient about her needing to get up and moving again and patient agreed that she would use bedside commode the next time she needed to urinate. Patient took HS meds without difficulty. No distress noted. Call light in reach.
--- NOTE | 2019-06-08 00:15 | PC.NURSE ---
Patient awakened easily for VS to be taken but remained drowsy. Patient denies pain/complaints/needs @ this time. No distress noted. Call light in reach.
--- NOTE | 2019-06-08 01:45 | PC.NURSE ---
Patient assisted to/from bedside commode to urinate. Patient would not stand and would not move her legs to take a step. Nurses lifted patient while patient grabbed one nurses posterior upper arm and was squeezing/pinching it and grabbed the other nurses neck and was doing the same. Patient urinated 100ml telly urine. While assisting patient back to the bed patient wouldn't stand or move her legs again and then went flaccid. Nurses got patient to the bed and laid back down and patient said I made it . Patient denies pain/complaints/needs @ this time. Call light in reach.
[2019-06-08 04:00] VITALS: PULSE 76
--- NOTE | 2019-06-08 04:20 | PC.NURSE ---
Patient assisted on/off bedpan. Urine clear telly. Patient denies pain/complaints/needs @ this time. No distress noted. Call light in reach.
[2019-06-08 05:33] LABS: Hematocrit 21.9 % (35.0-42.0); Immature Platelet Fraction Pct 5.8 % (1.0-7.0); Mean Corpuscular HGB Conc 31.5 g/dL (32.0-36.0); Mean Corpuscular Hemoglobin 29.9 pg (27.0-31.0); Mean Corpuscular Volume 94.8 fL (78.0-102.0); Mean Platelet Volume 13.1 fl (9.2-11.8); Platelet Count Result 40 K/mm3 (150-420); Red Blood Count 2.31 M/mm3 (4.20-5.40); Red Cell Distribution Width 17.5 % (11.6-14.4); White Blood Count 4.8 K/mm3 (4.8-10.8)
[2019-06-08 05:36] LABS: Hemoglobin 6.9 g/dL (11.7-13.8)
[2019-06-08 05:45] LABS: Anion Gap 14.5 mmol/L (7-16); Blood Urea Nitrogen 35 mg/dL (7-18); Carbon Dioxide 20 mmol/L (21-32); Chloride 101 mmol/L (98-108); Estimated CRCL calculation 14 ml/min; Estimated Glomerular Filt Rate 15; Glucose 94 mg/dL (70-99); Magnesium 1.9 mg/dL (1.8-2.4); Osmolality Calculated 282 mOsm/kg (285-295); Potassium 3.5 mmol/L (3.5-5.1); Sodium 132 mmol/L (136-145)
[2019-06-08 07:55] VITALS: BP 115/64; PULSE 77; PULSE 79; RESP 20; TEMP 37.1; O2SAT 98
[2019-06-08 08:07] LABS: Hematocrit 22.3 % (35.0-42.0); Hemoglobin 7.2 g/dL (11.7-13.8); Immature Platelet Fraction Pct 5.9 % (1.0-7.0); Mean Corpuscular HGB Conc 32.3 g/dL (32.0-36.0); Mean Corpuscular Hemoglobin 30.5 pg (27.0-31.0); Mean Corpuscular Volume 94.5 fL (78.0-102.0); Mean Platelet Volume 10.2 fl (9.2-11.8); Platelet Count Result 38 K/mm3 (150-420); Red Blood Count 2.36 M/mm3 (4.20-5.40); Red Cell Distribution Width 17.6 % (11.6-14.4); White Blood Count 4.8 K/mm3 (4.8-10.8)
[2019-06-08 09:10] VITALS: PULSE 77
[2019-06-08] MEDS: DOCUSATE SODIUM 100 MG CAPSULE PO (09:10)
[2019-06-08] MEDS: carvediloL 12.5 MG TABLET 25 MG PO (09:10)
[2019-06-08] MEDS: FUROSEMIDE 20 MG TABLET PO (09:11)
[2019-06-08] MEDS: MONTELUKAST SODIUM 10 MG TABLET PO (09:11)
[2019-06-08] MEDS: allopurinoL 100 MG TABLET PO (09:11)
[2019-06-08] MEDS: PANTOPRAZOLE 40 MG TABLET PO (09:11)
[2019-06-08] MEDS: VITAMIN B COMPLEX CAPSULE 1 CAP PO (09:11)
[2019-06-08] MEDS: CHOLECALCIFEROL 1,000 UNIT TABLET 1000 UNITS PO (09:12)
[2019-06-08] MEDS: levETIRAcetam 500 MG TABLET 250 MG PO (09:15)
[2019-06-08] MEDS: CALCIUM CARBONATE (OSCAL) 500 MG TABLET 250 MG PO (10:51)
--- NOTE | 2019-06-08 11:19 | PC.NURSE ---
Patient using bed martínez. Not able to get out of bed.
[2019-06-08 12:00] VITALS: PULSE 88
--- NOTE | 2019-06-08 14:05 | PM.DS ---
DS: Diagnosis Admitting Diagnosis Admitting Diagnosis: Other symptoms and signs involving cognitive functions and awareness Discharge Diagnosis (1) Unresponsive episode: Code(s): R41.89 - Other symptoms and signs involving cognitive functions and awareness Status: Acute Assessment and Plan: possibly secondary to orthostatic hypotension versus TIA versus CVA versus seizure NIH score 2 CT of the head unremarkable troponin negative EKG sinus rhythm with occasional supraventricular premature complexes call to Dr. Cordova awaiting call back continue neuro checks Q hour, orthostatics blood pressure reading in telemetry sodium slightly decreased to 133 neck level slightly decreased 1.4 will give a Mag rider 2 g BMP and CMP in the a.m. patient will discharge at the swing program and become inpatient (2) Generalized weakness: Code(s): R53.1 - Weakness Status: Acute Assessment and Plan: once patient is stable she will restart the swing program (3) Chronic kidney disease, stage 4 (severe): Code(s): N18.4 - Chronic kidney disease, stage 4 (severe) Status: Chronic Assessment and Plan: - secondary to hypertension and vascular disease upper quadrant ultrasound on 05/26 indicates: 1. Cholelithiasis. 2. Mild increased bilateral renal cortical echogenicity consistent with medical renal disease. No hydronephrosis. 3. Hepatic and pancreatic cysts. - nephrology consulted while in-patient at [facility] -baseline creatinine between 2.5 and 3.0. Patient currently at baseline -will avoid nephrotoxins agents - provide supportive therapy -will cautiously use diuretics - continue Epogen shots Friday (5) Hypertension: (4) Hyperlipidemia: Code(s): E78.5 - Hyperlipidemia, unspecified Status: Acute Assessment and Plan: continue statins (5) Hypertension: Qualifiers: Hypertension type: essential hypertension Qualified Code(s): I10 - Essential (primary) hypertension Code(s): I10 - Essential (primary) hypertension Status: Chronic Assessment and Plan: -vital signs stable - continue, hydralazine and carvedilol - will adjust medication as needed - vital signs is ordered (6) Breast cancer: Qualifiers: Breast location: unspecified site of breast Estrogen receptor status: unspecified Laterality: unspecified laterality Patient sex: female Qualified Code(s): C50.919 - Malignant neoplasm of unspecified site of unspecified female breast Code(s): C50.919 - Malignant neoplasm of unspecified site of unspecified female breast Status: Acute Assessment and Plan: Carcinoma in situ, status post lumpectomy and radiation therapy. (7) Edema: Qualifiers: Edema type: unspecified Qualified Code(s): R60.9 - Edema, unspecified Code(s): R60.9 - Edema, unspecified Status: Acute Assessment and Plan: patient will bilateral edema past Doppler negative for clots according to notes nephrology okayed use of diuretics with elevated creatinine. (8) Right knee pain: Code(s): M25.561 - Pain in right knee Status: Acute Assessment and Plan: right CT of the knee indicates Knee CT 06/07/19 09:30 IMPRESSION: 1. Moderate-sized right knee joint effusion no acute osseous abnormality. 2. Chondrocalcinosis and osteoarthritis at the right knee, mild to moderate in the medial compartment and mild in the lateral compartment although severity of joint space narrowing can be underestimated on nonweightbearing imaging. 3. Extensive nonspecific subcutaneous edema patient is currently taking diuretics, joint effusion could possibly resolved with the use of diuretics. will re-evaluate in a couple days possible aspirate the knee to remove fluid if it is not resolved. DS: Summary Hospital Course Hospital Course: Narrative: Narrative: Grecia Patterson is a 78 year
[2019-06-08 14:47] VITALS: BP 111/59; PULSE 97; RESP 20; TEMP 36.7; O2SAT 97
== END 2019-06-08 16:00 | disposition short-term general hospital (02) | DRG 884 ==
PROVIDERS: Nurse Practitioner; Surgery; Admitting Provider Family Medicine; Visit Provider Family Medicine
DX: R41.89 Other symptoms and signs involving cognitive functions and awareness (principal); K57.21 Diverticulitis of large intestine with perforation and abscess with bleeding; N18.4 Chronic kidney disease, stage 4 (severe); D63.8 Anemia in other chronic diseases classified elsewhere; I12.9 Hypertensive chronic kidney disease with stage 1 through stage 4 chronic kidney disease, or unspecified chronic kidney disease; M25.461 Effusion, right knee; K86.89 Other specified diseases of pancreas; E78.5 Hyperlipidemia, unspecified; Z85.3 Personal history of malignant neoplasm of breast; Z96.641 Presence of right artificial hip joint
CPT/HCPCS: 36415; 73700; 74176; 80048; 82272; 82550; 83605; 83735; 83880; 84484; 85014; 85018; 85027; 85055; 86140; 86850; 86900; 86901; A9270; J3475; Q4081

== ENCOUNTER 2019-06-08 18:39 | Inpatient (IN) | payer MEDICARE, SELFPAY ==
--- NOTE | ~2019-06-08 | US_ITS ---
EXAMINATION:US venous doppler LE BI INDICATION:Leg swelling and dyspnea. Postop. TECHNIQUE: Multiple grayscale, color flow and Doppler images of the lower extremity deep venous syste ms were obtained and reviewed. COMPARISON:Ultrasound dated 05/26/2019 FINDINGS: The common femoral, superficial femoral and popliteal veins demonstrate normal respiratory variation, augmentation and compressibility. Color flow is also seen within the posterior tibial, pe roneal, greater saphenous and profunda veins. IMPRESSION: 1: No lower extremity deep venous thrombosis. Reviewed, dictated and finalized at location A. [facility]MAS[facility] HELPER
--- NOTE | ~2019-06-08 | CT_ITS ---
EXAMINATION: CT abdomen pelvis wo con DATE: 06/17/2019 10:46 INDICATION: Diverticulitis with abscess. TECHNIQUE: Computed tomography (CT) of the abdomen and pelvis was performed without intravenous contr ast. Automated exposure control and iterative reconstruction technique were employed. The dose-length product was 456.28 mGy-cm. COMPARISON: CT abdomen and pelvis 06/07/2019 FINDINGS: There are moderate-sized right and small left pleural effusions. The visualized portions of the lungs demonstrate atelectasis bilaterally with a dependent predominance. Cardiomegaly is noted. There are coronary artery calcifications. No pericardial effusion. There is a small sliding hiatal he rnia. There are cysts in the liver measuring up to 2.3 cm. There are gallstones in the gallbladder, w hich is normal in size. Calcifications in the liver consistent with old granulomatous disease. The sp dora is normal. There is a 3.1 cm cystic lesion with peripheral calcification in the pancreas. The ad renal glands are normal. There are simple cysts in the kidneys measuring up to 5 mm. There is a 6 mm hemorrhagic cyst in left kidney. There are scattered diverticula in the colon. There is wall thickeni ng of sigmoid colon. The appendix is normal. There is a small volume of pelvic ascites. There is a 4. 5 x 2.2 cm abscess in right lower quadrant with percutaneous drain in expected position, improved fro m 6.5 x 4.0 cm. There is a 4.8 x 1.9 cm abscess in left lower quadrant predominantly containing gas, stable from 5.0 x 1.5 cm. There is a total right hip arthroplasty. There is internal fixation of prox imal left femur. There is severe lower lumbar spondylosis. IMPRESSION: 1. Sigmoid diverticulitis. 2. Right-sided perisigmoid abscess with interval improvement with percutaneous drain in expected posi tion. Stable left-sided perisigmoid abscess. 3. Stable small volume of pelvic ascites. 4. 3.1 cm cystic lesion in the body of the pancreas, worsened from 06/18/2017 and stable from 05/15/2019 . The differential diagnosis includes pseudocyst, intraductal papillary mucinous neoplasm (IPMN), muc inous cystic neoplasm (MCN), serous cystadenoma, and neuroendocrine tumor. Consider endoscopic ultras ound with fine needle aspiration. Reviewed, dictated and finalized at location A. IMPRESSION: 1. Sigmoid diverticulitis. 2. Right-sided perisigmoid abscess with interval improvement with percutaneous drain in expected position. Stable left-sided perisigmoid abscess. 3. Stable small volume of pelvic ascites. 4. 3.1 cm cystic lesion in the body of the pancreas, worsened from 06/18/2017 an d stable from 05/15/2019. The differential diagnosis includes pseudocyst, intradu ctal papillary mucinous neoplasm (IPMN), mucinous cystic neoplasm (MCN), serous cystadenoma, and neuroendocrine tumor. Consider endoscopic ultrasound with fin e needle aspiration.
--- NOTE | ~2019-06-08 | CT_ITS ---
EXAMINATION: CT guide absc cath placement DATE: 06/09/2019 17:04 INDICATION: Perisigmoid abscess. TECHNIQUE: The procedure including the risks, benefits, and alternatives was discussed with the patie nt. Risks discussed included bleeding and infection. The patient understood the risks and benefits an d agreed to proceed. The skin overlying the abdomen was prepped and draped in usual sterile fashion. Anesthetic was administered with 1% lidocaine subcutaneously. Moderate sedation was achieved with 0. 5 mg Versed IV and 50 mcg fentanyl IV. An 18 gauge trochar needle was inserted into the perisigmoid a bscess with CT guidance. The needle was exchanged over a wire for 6 Martiniquais, 8 Martiniquais, and 9 Martiniquais di lators and then for an 8.5 Martiniquais pigtail catheter. The catheter was stitched to the skin, and a ster ile dressing was applied. The mA was adjusted according to patient size. Iterative reconstruction tyson hnique was employed. The dose-length product was 225.09 mGy-cm. There were no immediate complications . FINDINGS: CT images demonstrate the catheter within the fluid collection. 4 mL fluid was aspirated fo r testing. IMPRESSION: 1. Successful CT-guided right percent perisigmoid abscess drainage. 2. 4 mL mckinnon, opaque fluid was sent for aerobic and anaerobic cultures. Reviewed, dictated and finalized at location A. ORATE LAW ASSISTANT
--- NOTE | ~2019-06-08 | NM_ITS ---
EXAMINATION: NM lung vent and perfusion EXAM DATE: 06/12/2019 14:58 INDICATION: Postoperative shortness of breath. TECHNIQUE: A ventilation perfusion lung scan was performed. The patient inhaled 13 mCi xenon-133 whi le images were acquired. The patient was then injected with 5 mCi technetium 99m MAA and reimaged. There is no prior study for comparison. FINDINGS: There is asymmetry in the count distribution with more intense activity identified on the l eft, on both the perfusion and ventilation exam. There are segmental perfusion defects in the lower l ivan zones bilaterally, difficult to determine whether or not these are Ventilation matched due to low counts on that portion of exam, but could be correlating to the enlarging pleural effusions confirme d on x-ray. There is some tracer retention on the washout phase of examination. IMPRESSION: Intermediate probability pulmonary embolism. Reviewed, dictated and finalized at location A. [employer] SUPERVISOR
--- NOTE | ~2019-06-08 | XR_ITS ---
EXAMINATION: XR chest 2V EXAM DATE: 06/12/2019 14:56 INDICATION: Postoperative dyspnea. TECHNIQUE: Portable AP sitting frontal chest x-ray was obtained. Comparison is made to prior examinat ion from 06/05/2011. FINDINGS: Compared to previous examinations, interval increase in size of the pleural effusions now l ayering posteriorly, and in the right major fissure. Some adjacent atelectasis. The cardiac silhouett e is enlarged. There is pulmonary vascular congestion. There is no pneumothorax suspected. There are bony degenerative changes. IMPRESSION: 1. Worsening pleural effusions, congestive changes compared to prior study. Adjacent atelectasis. Reviewed, dictated and finalized at location A. NICIAN IMPRESSION: 1. Worsening pleural effusions, congestive changes compared to prior study. Ad jacent atelectasis.
--- NOTE | ~2019-06-08 | XR_ITS ---
XR chest 2V 06/15/2019 11:52 Indication: Follow-up CHF Procedure: AP and lateral views of the chest Comparison: Comparison to multiple prior studies sequentially, with oldest reviewed study dated 09/2019. Findings: Cardiomegaly. Bilateral pleural effusions, right greater than left. Bibasilar airspace dise ase there is atherosclerosis of the aorta. Impression: 1: Bibasilar airspace disease which may represent edema, atelectasis and/or pneumonia. 2: Bilateral pleural effusions, right greater than left. Reviewed, dictated and finalized at location A. Impression: 1: Bibasilar airspace disease which may represent edema, atelectasis and/or pne umonia. 2: Bilateral pleural effusions, right greater than left.
[2019-06-08 17:31] VITALS: BMI 28.4
--- NOTE | 2019-06-08 18:50 | PM.IMHP ---
H&P: HPI History of Present Illness Chief complaint: abd abscess Narrative: Grecia Patterson is a 78 year old female patient that was transferred here from [facility]. Patient had been an inpatient here at [facility] 05/13/2019-05/23/2019 and then again from 05/26/2019-06/04/2019. At that point in time, she was transferred to a swing bed at [facility] for rehabilitation related to deconditioning. On 06/06/2019, she had what was described as a seizure-like episode at [facility] and was transferred from the swing bed back to an inpatient. Patient was transferred back to [facility] today due to need for further neurological care and to be seen by surgery to see about draining 2 perisigmoid abscesses that showed interval worsening on her CT scan of the abdomen and pelvis, yesterday 06/07/2019. Patient has a pertinent past medical history of diverticulitis and a new onset neurological event. Date of service is 06/08/2019. The patient currently is not on any antibiotics. Her last admission she saw surgery and Dr. oconnell. Surgery had been consulted from [facility] in agreed to accept the patient here. Dr. oconnell also saw the patient when she was here last. Patient gets Epogen from Friday and she had it this past Friday. Her counts drop below 7 and they repeated her hemoglobin and was over 7 so she did not get a blood transfusion today. Review of Systems Constitutional: Constitutional: Reports as per HPI, Reports no additional constitutional complaints and Reports weakness (generalized.) Eyes: Eyes: Reports as per HPI and Reports no additional eye complaints ENT: Reports system reviewed and no additional complaints, except as documented and Reports Normal hearing present Cardiovascular: Cardiovascular: Reports no additional cardiovascular complaints and Reports other Comments: Anasarca. 2 plus pitting. Respiratory: Respiratory: Reports as per HPI, Reports no additional respiratory complaints and Reports dyspnea on exertion (with minimal exertion) Gastrointestinal: Gastrointestinal: Reports as per HPI, Reports no additional gastrointestinal complaints and Reports diarrhea Genitourinary: Genitourinary: Reports no additional female genitourinary complaints Musculoskeletal: Musculoskeletal: Reports no additional musculoskeletal complaints and Reports muscle weakness (generalized) Integumentary/Breasts: Skin/Breast: Reports system reviewed and no additional complaints, except as docu Neurologic: Reports system reviewed and no additional complaints, except as documented and Reports Normal hearing present Psychiatric: Psychiatric: Reports no additional psychiatric complaints and Reports as per HPI Hematologic/Lymphatic: Hematologic/Lymphatic: Reports no additional hematologic/lymphatic complaints and Reports other (chronic anemia. Daughters report patient receives Epogen every MWF) Allergic/Immunologic: Allergic/Immunologic: Reports no additional allergic/immunologic complaints PMFSH Past Medical History Medical History (Updated 06/08/19 @ 20:22 by Diann Locke NP) Acute on chronic blood loss anemia Breast cancer Carcinoma in situ, 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 Chronic anemia She is a patient of Dr. Telles at [facility]. A bone marrow biopsy done about 5 years ago was reportedly unremarkable. Most likely related to chronic renal failure. On Epogen Friday Chronic kidney disease, stage 4 (severe) Baseline creatinine around 3.0. Diverticular disease Diverticulitis of colon with perforation Summer 2018, hospitalized at [facility]. Diverticulosis of colon with hemorrhage Summer 2018. Gastric ulcer Gout Hyperlipidemia Hypertension Nausea & vomiting Pancytopenia Seasonal allergies Seizure Patient was getting up out of a chair at [place] and rolled her eyes back and slid to the floor patient stated her legs gav
[2019-06-08 19:41] LABS: Basophils Percent Auto 0.4 % (0.2-1.2); Eosinophils Absolute Auto 0.1 K/mm3 (0-0.3); Hematocrit 22.9 % (37.0-47.0); Hemoglobin 7.2 g/dL (12.0-15.0); Immature Granulocyte Absolute 0.01 K/mm3 (0.00-0.031); Immature Granulocyte Percent A 0.2 % (0-0.5); Immature Platelet Fraction Pct 8.2 % (0.9-11.2); Lymphocytes Absolute Auto 0.66 K/mm3 (0.9-3.2); Mean Corpuscular HGB Conc 31.4 g/dl (32-36); Mean Corpuscular Volume 95.4 fl (80-100); Mean Platelet Volume 13.1 fl (7.4-10.4); Monocytes Absolute Auto 0.5 K/mm3 (0.1-0.6); Monocytes Percent Auto 8.9 % (2.6-8.5); Neutrophils Absolute Auto 3.9 K/mm3 (1.3-6.7); Neutrophils Percent Auto 76.5 % (45.5-73.1); Platelet Count Result 33 k/mm3 (150-375); Red Cell Distribution Width 17.5 % (11.5-14.5); White Blood Count 5.1 K/mm3 (4.5-10.0)
[2019-06-08 19:50] LABS: Platelet Estimate Decreased (Adequate)
[2019-06-08 19:51] LABS: Blood Urea Nitrogen 33 mg/dL (7-17); Calcium 8.1 mg/dL (8.4-10.2); Carbon Dioxide 19 mmol/L (22-30); Chloride 102 mmol/L (98-107); Estimated CRCL calculation 14 ml/min; Estimated Glomerular Filt Rate 16; Glucose 97 mg/dL (65-105); Ovalocytes 1+ (NORMAL); Potassium 3.4 mmol/L (3.4-5.0); Sodium 128 mmol/L (137-145)
[2019-06-08 21:22] VITALS: PULSE 80
[2019-06-08] MEDS: allopurinoL 100 MG TABLET PO (21:22)
[2019-06-08] MEDS: FLUTICASONE PROPIONATE 0.05% NA SPR 16 GM BTL (*BKC) 2 SPRAY NASAL (21:22)
[2019-06-08] MEDS: carvediloL 25 MG TABLET PO (21:22)
[2019-06-08] MEDS: levETIRAcetam 250 MG TABLET PO (21:23)
[2019-06-08 22:00] VITALS: BP 119/57; PULSE 77; RESP 20; TEMP 36.5; O2SAT 98
[2019-06-09] VITALS (20 sets, daily range): BP systolic 103–150; BP diastolic 52–76; PULSE 72–96; RESP 12–20; TEMP 36.1–36.9; O2SAT 95–100; BMI 28.4
[2019-06-09 04:16] LABS: Add Urine Microscopic? YES; Appearance Urine Clear (Clear); Bacteria Urine Trace /hpf; Bilirubin Urine Negative (Negative); Blood Urine 1+ (Negative); Color Urine Yellow (Yellow); Glucose Urine UA Negative (Negative); Ketones Urine Negative (Negative); Leukocyte Esterase Ur Trace LEU/UL (Negative); Mucus Urine Rare /lpf; Nitrate Urine Negative (Negative); Protein Urine Negative (Negative); RBC Urine 0-2 /hpf (0-2); Squamous Epithelial Cell Urine Moderate /hpf (Few); Transitional Epi Cells Urine Rare /hpf (None Seen); Urobilinogen Urine Negative mg/dL (<2.0); WBC Urine 0-3 /hpf
--- NOTE | 2019-06-09 06:08 | PM.CNNEP ---
Assessment and Plan Assessment and plan (1) Chronic kidney disease, stage 4 (severe): Code(s): N18.4 - Chronic kidney disease, stage 4 (severe) Status: Chronic Assessment and Plan: The patient has chronic kidney disease. This is probably from hypertension and vascular disease. She does not have any symptoms from this. Her appetite has not been great but she does have abscesses and so this issue may not be due to her chronic kidney disease. She did have to unresponsive episodes. Her GFR is 14 and stable. I suppose this could be uremia but other causes should be evaluated 1st. Neurology has been consulted. We can get a 24hour urine to see if her GFR is actually lower because she has been in bed a lot and so may have lower muscle mass possibly making the creatinine under estimate kidney disease. (2) Diverticular disease: Code(s): K57.90 - Diverticulosis of intestine, part unspecified, without perforation or abscess without bleeding Status: Acute Assessment and Plan: The patient has diverticulosis. It looks like she may have a couple of abscesses on her CT. Surgery is evaluating this. (3) Hypertension: Qualifiers: Hypertension type: essential hypertension Qualified Code(s): I10 - Essential (primary) hypertension Code(s): I10 - Essential (primary) hypertension Status: Chronic Assessment and Plan: Blood pressure is well controlled. She is on carvedilol, clonidine, hydralazine, and a low dose of furosemide. (4) Chronic anemia: Code(s): D64.9 - Anemia, unspecified Status: Acute Assessment and Plan: Hemoglobin is low. We can check a reticulocyte count. With all the diverticular issues she may have some subtle blood loss in the stools. Also because of the infection Epogen sometimes does not work as well. (5) Gout: Code(s): M10.9 - Gout, unspecified Status: Acute Assessment and Plan: No symptoms lately. (6) Hyponatremia: Code(s): E87.1 - Hypo-osmolality and hyponatremia Status: Acute Assessment and Plan: Her sodium is a little bit low. This is probably due to her renal failure. (7) Unresponsive episode: Code(s): R41.89 - Other symptoms and signs involving cognitive functions and awareness Status: Acute Assessment and Plan: Neurology has been consulted. History of Present Illness Reason for Consult Consult date: 06/09/19 Chief Complaint Chief complaint: abd abscess History of Present Illness Narrative: Kay is a very pleasant 78-year-old lady who has multiple medical problems including chronic kidney disease with a baseline creatinine of 3, anemia, diverticulosis, history of gastric ulcer, gout, hyperlipidemia, hypertension, pancytopenia. The patient has been in an out of [facility] lately. Most recently she was in the hospital for a diverticulitis episode. She received antibiotics and improved. She was weak and so went to a swing bed at [facility] for rehab. She says that she was actually getting up in a chair and walking to the bathroom up until last Friday. On Friday apparently she had 2 unresponsive episodes which the patient is calling seizures.. She is transferred to inpatient in that hospital and a CT scan was done of her belly and this showed that she had worsened abscesses near her sigmoid colon. The consult is surgery and she was transferred to [facility] for surgery evaluation and also neurologic evaluation because of the seizures. The patient says she has never had a seizure or other unresponsive episode before. She has chronic kidney disease. Her creatinine has been 3 lately. It is stable now. She is not having any bloody urine, foamy urine, kidney stones, or bladder infections. She has no pain with urination. Review of Systems Constitutional: Constitutional: Reports no additional constitutional complaints Eyes: Eyes: Reports no add
[2019-06-09 06:15] LABS: Basophils Percent Auto 0.2 % (0.2-1.2); Eosinophils Absolute Auto 0.1 K/mm3 (0-0.3); Hematocrit 22.6 % (37.0-47.0); Hemoglobin 7.4 g/dL (12.0-15.0); Immature Granulocyte Absolute 0.02 K/mm3 (0.00-0.031); Immature Granulocyte Percent A 0.4 % (0-0.5); Immature Platelet Fraction Pct 10.6 % (0.9-11.2); Lymphocytes Absolute Auto 0.72 K/mm3 (0.9-3.2); Lymphocytes Percent Auto 13.9 % (18.3-44.2); Mean Corpuscular HGB Conc 32.7 g/dl (32-36); Mean Corpuscular Hemoglobin 30.2 pg (26-34); Mean Corpuscular Volume 92.2 fl (80-100); Monocytes Absolute Auto 0.5 K/mm3 (0.1-0.6); Monocytes Percent Auto 10.2 % (2.6-8.5); Neutrophils Absolute Auto 3.9 K/mm3 (1.3-6.7); Neutrophils Percent Auto 74.3 % (45.5-73.1); Platelet Count Result 31 k/mm3 (150-375); Red Blood Count 2.45 M/mm3 (4.2-5.4); Red Cell Distribution Width 17.3 % (11.5-14.5); White Blood Count 5.2 K/mm3 (4.5-10.0)
[2019-06-09 06:26] LABS: Alkaline Phosphatase 110 U/L (38-126); Aspartate Amino Transferase 9 U/L (14-36); Bilirubin,Total 0.2 mg/dL (0.2-1.3); Blood Urea Nitrogen 33 mg/dL (7-17); Calcium 8.2 mg/dL (8.4-10.2); Carbon Dioxide 18 mmol/L (22-30); Chloride 105 mmol/L (98-107); Estimated CRCL calculation 14 ml/min; Estimated Glomerular Filt Rate 16; Glucose 86 mg/dL (65-105); Potassium 3.9 mmol/L (3.4-5.0); Sodium 130 mmol/L (137-145)
[2019-06-09 06:52] LABS: Immature Reticulocyte Fraction 10.5 % (3.0-15.9); Reticulocyte Hemoglobin Conten 25.9 pg (28.2-35.7); Reticulocyte Percent 1.33 % (0.7-4.3); Reticulocytes Absolute 0.03 B/L (32.2-175.7)
[2019-06-09 07:21] LABS: Alanine Aminotransferase < 6 U/L (4-35)
[2019-06-09 07:43] LABS: Platelet Estimate Decreased (Adequate)
[2019-06-09 07:44] LABS: Burr Cells 1+ (NORMAL); Hypochromasia 1+ (NORMAL); Poikilocytosis 1+ (NORMAL)
--- NOTE | 2019-06-09 08:00 | NEURO_ITS ---
TEST: ELECTROENCEPHALOGRAM DIAGNOSIS: POSSIBLE SEIZURE PATIENT NUMBER: [id number] EEG NUMBER: [id number] RECORDING DATE: 06/09/19 CONDITION OF RECORDING: Sleeping EEG DESCRIPTION: Basic resting occipital frequency consists of small amount of poorly organized low voltage 8-10hz alpha mixed with low voltage 15-18hz beta and intermittent 6-7hz theta. Bilateral symmetrical sleep activity is seen during sleep. Hyperventilation and photic stimulation were not done. Nonparoxysmal. Nonfocal. Nonlateralizing. IMPRESSION: No significant abnormalities noted. [facility]
[2019-06-09] MEDS: VITAMIN B COMPLEX CAPSULE 1 CAP PO (09:11)
[2019-06-09] MEDS: carvediloL 25 MG TABLET PO ×2 (09:11→21:51)
[2019-06-09] MEDS: allopurinoL 100 MG TABLET PO ×2 (09:13→21:52)
[2019-06-09] MEDS: CHOLECALCIFEROL 1,000 UNIT TABLET 1000 UNITS PO (09:13)
[2019-06-09] MEDS: MONTELUKAST SODIUM 10 MG TABLET PO (09:13)
[2019-06-09] MEDS: levETIRAcetam 250 MG TABLET PO ×2 (09:13→21:50)
--- NOTE | 2019-06-09 10:31 | WPDGICN ---
Assessment and Plan Additional Plan This is a 78-year-old white female patient mass see because of abdominal abscesses. Patient well known to me from recent hospital stay. She current we is in rehab in [place]. She has report have a seizure. Prompting her to be admitted to at [facility]. A follow-up CT scan was apparently performed which confirmed persistence of abdominal abscesses. Patient denies any abdominal pain. Her bowel habits remain normal. No fever is reported. Past medical history is significant for diverticulitis with pericolonic abscesses. Current we on antibiotics under the direction of Dr. oconnell. Surgery is following the patient with anticipation of a ventral drainage. Dr. Lerner knows this patient. Patient also has a past history of gastric ulcer identified at time of endoscopy several months ago. This been asymptomatic on proton pump inhibitor. She has been found to have asymptomatic gallstones. She is known to have chronic kidney disease. She is on Epogen to treat her chronic anemia. She has chronic thrombocytopenia followed by Dr. black at [facility]. Hematology. She has a distant history of breast carcinoma felt resected. recent CT scan also raise the question of a kidney mass. And pancreatic cyst. Uncertain nature. Family history noncontributory. Current medications include allopurinol, betamethasone, Coreg, clonidine, Epogen, fluticasone, Lasix, hydralazine, levetiracetam, melatonin, montelukast, pantoprazole, MiraLax, and simvastatin. She reports allergies to Cipro, Keflex, penicillins and quinolones. Physical exam reveals her to be alert. She is anicteric. Vital signs stable. HEENT exam unremarkable. Lungs are clear to auscultation and percussion. Heart is without murmur or extra sounds. Abdominal exam bowel sounds are present soft nontender with no hepatosplenomegaly. Digital rectal exam normal. Impression 1. History of diverticulitis with pericolonic abscesses. Now for antibiotics under the direction Dr. Crane.. Surgery should follow up with patient with plans for ultimate resection. Clinically patient continues disease appears stable. 2. Abnormal CT scan. Suggest pancreatic cyst and renal mass as well. Given her poor overall state these will be evaluated later when more stable. 3. Chronic anemia. Appears to be related chronic kidney disease. 4. History of gastric ulcer. This appears stable on proton pump inhibitor. 5. Chronic thrombocytopenia. Followed by Hematology. 6. Recent seizure. Etiology unclear. Apparently this is why she was admitted to the hospital. Plan I will follow with you. Continue antibiotics in the direction of ID service. Surgical follow-up. 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 Chronic anemia She is a patient of Dr. Telles at [place]. A bone marrow biopsy done about 5 years ago was reportedly unremarkable. Most likely related to chronic renal failure. On Epogen Friday Chronic kidney disease, stage 4 (severe) Baseline creatinine around 3.0. Diverticular disease Diverticulitis of colon with perforation Summer 2018, hospitalized at [place]. Diverticulosis of colon with hemorrhage Summer 2018. Gastric ulcer Gout Hyperlipidemia Hypertension Nausea & vomiting Pancytopenia Seasonal allergies Seizure Patient was getting up out of a chair at [place] and rolled her eyes back and slid to the floor patient stated her legs gave out. No official diagnosis of seizure however she was started on seizure medicine Surgical History Surgical History Basal brooks
--- NOTE | 2019-06-09 10:49 | PM.CNGS ---
Assessment and Plan Assessment and plan (1) Diverticular disease of intestine with perforation and abscess: Code(s): K57.80 - Diverticulitis of intestine, part unspecified, with perforation and abscess without bleeding Status: Acute Assessment and Plan: CT scan of the abdomen and pelvis was reviewed and discussed with the patient and her daughter. Dr. Lerner also reviewed the CT scan with the Radiologist himself. The patient has not shown any signs of improvement with antibiotic treatment alone. The abscesses have not been amenable to drainage during the past two hospitalizations, but after speaking with Radiology, it appears this may be a possibility now. The patient will ultimately require surgery, but by proceeding more urgently, she would likely require an ostomy, which may be permanent. Dr. Lerner discussed the options with the patient and she has decided to proceed with percutaneous drain placement to attempt to treat the abscesses and allow the infection to subside prior to proceeding with surgery. This will give her the best change at avoiding an ostomy. With the patient being so deconditioned, this will also allow her time to build strength and her nutrition. Will plan for the percutaneous drainage tomorrow. Infectious disease has also been consulted. Thank you for allowing me to see the patient in consultation and we will continue to follow along with you. (2) Thrombocytopenia: Code(s): D69.6 - Thrombocytopenia, unspecified Status: Acute Assessment and Plan: Followed by Hematology. [place] to have MDS. Will give platelets prior to proceeding with percutaneous drainage in Radiology tomorrow. (3) Chronic anemia: Code(s): D64.9 - Anemia, unspecified Status: Acute (4) Chronic kidney disease, stage 4 (severe): Code(s): N18.4 - Chronic kidney disease, stage 4 (severe) Status: Chronic (5) Generalized weakness: Code(s): R53.1 - Weakness Status: Acute Assessment and Plan: PT/OT has been ordered. She would benefit from gaining strength prior to surgery as well. (6) Hypertension: Qualifiers: Hypertension type: essential hypertension Qualified Code(s): I10 - Essential (primary) hypertension Code(s): I10 - Essential (primary) hypertension Status: Chronic (7) Unresponsive episode: Code(s): R41.89 - Other symptoms and signs involving cognitive functions and awareness Status: Acute Assessment and Plan: Neurology has been consulted. History of Present Illness Consult details Consult date: 06/09/19 Reason for consult: other (Sigmoid diverticulitis with persistent intra-abdominal abscesses) Requesting physician: Diann Locke NP Narrative: This is 78-year-old female with a history of chronic kidney disease, hypertension, anemia, and thrombocytopenia, who we were initially asked to see due to diverticular abscesses in early May. The patient was initially seen by our service during her first hospitalization on 05/16/19 after she had presented to the hospital with profound anemia and GI bleed. She did not have any significant abdominal pain. She underwent an EGD and Colonoscopy by Dr. Blas. During the upper endoscopy, she was found to have a gastric ulcer. During the colonoscopy, she was found to have significant inflammation in the sigmoid colon and the scope was unable to be passed beyond this point. CT scan of the abdomen and pelvis was obtained after the colonoscopy and showed diverticulitis with 2 small abscesses not amenable for percutaneous drainage. She was treated with IV antibiotics with Aztreonam and metronidazole for 10 days, and was discharged home on 05/23/19. Prior to this episode, she had an episode of diverticulitis and lower GI bleed about 9 months prior, otherwise no other episodes. The patient then presented to the emergency department in [place] and was a direct transfer back to [facility] for her second
--- NOTE | 2019-06-09 11:29 | CONS_ITS ---
DATE OF CONSULTATION: Patient of Dr. Jerrell Guzman. HISTORY OF PRESENT ILLNESS: This 78-year-old right-handed female has been admitted to [facility] on transfer from [facility]. The patient had been inpatient at [facility] from 05/13 and then again 05/26 to 06/04. At that time, she was transferred to a swing bed at [facility] for rehabilitation related to deconditioning. On 06/06/2019, she had what was described as a seizure-like episode at [facility] and transferred from the swing bed back to an inpatient. She was transferred back to [facility] due to the need for further neurological care and to be seen by Surgical Service also about draining 2 sigmoid abscesses that showed interval worsening on her CT scan of the abdomen and pelvis on 06/07/2019. The patient does have a past medical history of diverticulitis and new onset neurological event. The patient currently is not on any antibiotics. On her last admission, she saw the surgeon and Dr. Carballo as she also had been seen in [facility] where they transferred to Dr. Carballo when she was here also last time. She gets Epogen on Friday, Friday, Friday, and she received that particularly on Friday. She has no other additional complaints. PAST MEDICAL HISTORY: In the past, she has ongoing history of acute on chronic blood loss anemia, carcinoma of the breast with history of lumpectomy on the right x2, followed with radiation therapy and 16 treatments in 2013, chronic anemia, diverticulitis of the colon with perforation in summer requiring hospitalization at [facility] and also diverticulitis of colon with hemorrhage in summer. She also has gastric ulcer, gout, hyperlipidemia, hypertension, pancytopenia, seasonal allergies and seizure at this particular time. Reportedly, her eyes rolled back and slid to the floor and legs gave out. PAST SURGICAL HISTORY: In addition, she has undergone multiple surgeries as outlined above, particularly basal cell carcinoma, dental root implant, breast biopsy, colonoscopy, D and C, removal of a cyst, left middle finger; skin grafting, tonsillectomy, adenoidectomy, and also left hip surgery, right breast lumpectomy, right hip replacement as well. FAMILY HISTORY: Her father also had end-stage renal disease, needing dialysis, along with Alzheimer's and dementia, hypertension, prostatic carcinoma, and the mother also had breast cancer. SOCIAL HISTORY: She is a never smoker. Drinks 7 drinks per week currently. No substance abuse. MEDICATIONS: She is taking multiple medications as outlined. ALLERGIES: IN ADDITION, SHE HAS MULTIPLE ALLERGIES INCLUDING CIPRO, CEPHALEXIN, PENICILLIN, AND QUINOLONE. PHYSICAL EXAMINATION: GENERAL: On examination, she was awake, alert, cooperative, in no obvious acute distress, physically deconditioned, looking sick. She was oriented x3. Speech was not dysphasic, not dysarthric. She followed all the verbal commands appropriately. HEENT: Head was normocephalic with no cranial bruit. Ears, nose, throat examination was normal. NECK: Supple with no cervical bruit. No thyromegaly. No lymphadenopathy. HEART: Regular with murmur. LUNGS: Clear to auscultation with no crepitations or rhonchi. ABDOMEN: Soft with no organomegaly. NEUROLOGICAL: She was awake, alert, even though she appeared weak, but she was able to follow the verbal commands appropriately. Speech was not dysphasic, not dysarthric, not dysphonic. Pupils were round and regular. [place] of vision full. Extraocular muscles full. Face symmetrical. Tongue midline. Motor examination revealed her to have decreased strength in upper and lower extremities with sluggish reflexes and downgoing plantar responses. IMAGING: Ev
--- NOTE | 2019-06-09 11:39 | WPDPN ---
Progress Note: A&P Assessment and Plan (1) Diverticulitis of large intestine with perforation and abscess with bleeding: Code(s): K57.21 - Diverticulitis of large intestine with perforation and abscess with bleeding Status: Acute Assessment and Plan: I have reviewed the CT with radiology, and discussed treatment options with patient. Surgery will almost certainly be required to take care of this vermin exterminator, as patient has not shown any significant improvements with antibiotics alone. She will require an ostomy if I were to proceed with surgery more urgently, and this could be permanent due to her other complicated medical problems. The other option would be to have a percutaneous drain placed and attempt to let the infection subside before proceeding with surgery. This would give her a better chance at a 1 stage operation without giving her an ostomy. I did explain that there still would be a small chance of needing an ostomy regardless, but in the face of less infection/inflammation, her chances would be better. She would like to proceed with drain placement, and would be opposed to surgery urgently if it means she will need an ostomy. Will give her a unit of platelets to allow perc drain to be placed. (2) Thrombocytopenia: Code(s): D69.6 - Thrombocytopenia, unspecified Status: Acute Quality VTE Prophylaxis VTE prophylaxis: mechanical ordered
--- NOTE | 2019-06-09 11:51 | PM.IMPN ---
Progress Note: A&P Assessment and Plan (1) Unresponsive episode: Code(s): R41.89 - Other symptoms and signs involving cognitive functions and awareness Status: Acute Assessment and Plan: C/w seizure with postictal state. Currently on Keppra 250mg q 12 h w/o recurrence. (2) Diverticular disease of intestine with perforation and abscess: Code(s): K57.80 - Diverticulitis of intestine, part unspecified, with perforation and abscess without bleeding Status: Acute Assessment and Plan: CT shows worsening Platelets /, IR to insert drain 06/09 (3) Chronic anemia: Code(s): D64.9 - Anemia, unspecified Status: Acute Assessment and Plan: Continue with Epogen MWF as ordered. Known to have pancytopenia and had a bone marrow biopsy in 2014 that was unremarkable. (4) Right knee pain: Qualifiers: Chronicity: acute Qualified Code(s): M25.561 - Pain in right knee Code(s): M25.561 - Pain in right knee Status: Acute Assessment and Plan: Likely due to fall at facility PT/OT Monitor progress (5) Edema: Qualifiers: Edema type: unspecified Qualified Code(s): R60.9 - Edema, unspecified Code(s): R60.9 - Edema, unspecified Status: Acute Assessment and Plan: Continue with lamin wraps to bilateral lower extremities. (6) Generalized weakness: Code(s): R53.1 - Weakness Status: Acute Assessment and Plan: PT/OT (7) Chronic kidney disease, stage 4 (severe): Code(s): N18.4 - Chronic kidney disease, stage 4 (severe) Status: Chronic Assessment and Plan: Continue to monitor Avoid nephrotoxic drugs Renal dose meds (8) Hyponatremia: Code(s): E87.1 - Hypo-osmolality and hyponatremia Status: Acute Assessment and Plan: Chronic and relatively stable Urine Na 49 on 05/26/2019 (9) Hypertension: Qualifiers: Hypertension type: essential hypertension Qualified Code(s): I10 - Essential (primary) hypertension Code(s): I10 - Essential (primary) hypertension Status: Chronic Assessment and Plan: Hold meds and monitor Subjective Date/time seen: 06/09/19 11:51 Interval history: No further seizure activity. Tired. Some loose stool today. No chest pain, abd pain, sob. Legs swollen but with wraps in place. No bleeding. Review of Systems Review of Systems: All systems reviewed & are unremarkable except as noted in HPI and below Exam Narrative: Exam Narrative: HEENT: EOMI, PERRL, scoerae nonicteric, pharyngeal mucosa pink and intact NECK: No JVD, adenopathy, or thyromegaly CHEST: Clear to auscultation. Normal effort. HEART: NL S1/S2, regular, no murmur ABDOMEN: BS+, soft, nontender, no mass, no bruits EXTREMITIES: Trace leg edema NEUROLOGIC: CN intact and symmetric to inspection. MUSCULOSKELETAL: Tone and strength symmetric. PSYCH: Alert. Oriented to person, place, and time. Objective Data Vital Signs Vital Signs: Vital Signs - 24 hr 06/08/19 21:22 06/08/19 22:00 06/09/19 06:00 Temperature 97.7 F 97.5 F L Pulse Rate 80 77 77 Respiratory Rate 20 20 Blood Pressure 119/57 L 126/60 Pulse Oximetry 98 98 06/09/19 09:11 06/09/19 10:00 Temperature 98.0 F Pulse Rate 75 72 Respiratory Rate 19 Blood Pressure 103/52 L Pulse Oximetry 100 Intake/Output Intake/Output: Intake & Output 06/06/19 06/07/19 06/08/19 06/09/19 23:59 23:59 23:59 23:59 Intake Total 570 Output Total 400 Balance 170 Meds/Results Medications: Active Medications Generic Name Dose Route Start Last Admin Trade Name Freq PRN Reason Stop Dose Admin Allopurinol 100 mg 06/08/19 21:00 06/09/19 09:13 Zyloprim PO 100 mg Q12HR LYLE Administration Carvedilol 25 mg 06/08/19 21:00 06/09/19 09:11 Coreg PO 25 mg Q12HR LYLE Administration Fluticasone Propionate 2 spray 06/08/19 21:00 06/08/19 21:22
--- NOTE | 2019-06-09 11:57 | WPDINFPN2 ---
Progress Note: A&P Assessment and Plan (1) Diverticular disease of intestine with perforation and abscess: Code(s): K57.80 - Diverticulitis of intestine, part unspecified, with perforation and abscess without bleeding Status: Acute Assessment and Plan: 1. Diverticular abscess, not resolved radiographically, but no symptoms/signs of progression 2. Multiple allergies 3. Seizure, not apparently due to #1 4. Protein calorie malnutrition REC Not in need of antibiotic resumption. She will need sigmoid resection, electively. Subjective Date/time seen: 06/09/19 11:57 Objective Data Vital Signs Vital Signs: Vital Signs - 24 hr 06/08/19 21:22 06/08/19 22:00 06/09/19 06:00 Temperature 36.5 C 36.4 C L Pulse Rate 80 77 77 Respiratory Rate 20 20 Blood Pressure 119/57 L 126/60 Pulse Oximetry 98 98 06/09/19 09:11 06/09/19 10:00 Temperature 36.7 C Pulse Rate 75 72 Respiratory Rate 19 Blood Pressure 103/52 L Pulse Oximetry 100 Intake/Output Intake/Output: Intake & Output 06/06/19 06/07/19 06/08/19 06/09/19 23:59 23:59 23:59 23:59 Intake Total 570 Output Total 400 Balance 170 Meds/Results Medications: Active Medications Generic Name Dose Route Start Last Admin Trade Name Freq PRN Reason Stop Dose Admin Allopurinol 100 mg 06/08/19 21:00 06/09/19 09:13 Zyloprim PO 100 mg Q12HR LYLE Administration Carvedilol 25 mg 06/08/19 21:00 06/09/19 09:11 Coreg PO 25 mg Q12HR LYLE Administration Fluticasone Propionate 2 spray 06/08/19 21:00 06/08/19 21:22 Flonase 0.05% Nasal [place] NASAL 2 spray HS LYLE Administration Sodium Chloride 250 mls @ 30 mls/hr 06/09/19 11:33 Normal Saline Iv IV CONT 06/09/19 19:52 .Q8H20M STA Levetiracetam 250 mg 06/08/19 21:00 06/09/19 09:13 Keppra Tablet PO 250 mg Q12HR LYLE Administration Montelukast Sodium 10 mg 06/09/19 09:00 06/09/19 09:13 Singulair PO 10 mg DAILY LYLE Administration Ondansetron HCl 4 mg 06/08/19 18:39 Zofran Inj IV PUSH Q6H PRN Nausea And Vomiting Vitamin B Complex 1 cap 06/09/19 09:00 06/09/19 09:11 Vitamin B Complex PO 1 cap DAILY LYLE Administration Vitamin D 1,000 unit 06/09/19 09:00 06/09/19 09:13 Vitamin D PO 1,000 unit DAILY LYLE Administration Labs Labs: Laboratory Results - last 24 hr 06/08/19 06/08/19 06/09/19 19:19 19:19 03:41 WBC 5.1 RBC 2.40 L Hgb 7.2 L Hct 22.9 L MCV 95.4 MCH 30.0 MCHC 31.4 L RDW 17.5 H Plt Count 33 L MPV 13.1 H Immature Gran % (Auto) 0.2 Neut % (Auto) 76.5 H Lymph % (Auto) 13.0 L [place] % (Auto) 8.9 H Eos % (Auto) 1.0 Baso % (Auto) 0.4 Lymph # (Auto) 0.66 L [place] # (Auto) 0.5 Eos # (Auto) 0.1 Baso # (Auto) 0.0 Abs Immat Gran (auto) 0.01 Absolute Neuts (auto) 3.9 Absolute Nucleated RBC 0.0 Nucleated RBC % 0.0 Platelet Estimate Decreased % Immature Plt Fraction 8.2 Hypochromasia Poikilocytosis Ovalocytes 1+ [place] Cells Absolute Retic Percent Retic Immature Retic Fraction Retic Hgb Content Sodium 128 L Potassium 3.4 Chloride 102 Carbon Dioxide 19 L BUN 33 H Creatinine 2.80 H Estim Creat Clear Calc 14 Estimated GFR 16 L Glucose 97 Calcium 8.1 L Magnesium Total Bilirubin AST ALT Alkaline Phosphatase Total Protein Albumin Urine Color Yellow Urine Appearance Clear Urine pH 5.0 Ur Specific [place] 1.010 Urine Protein Negative Urine Glucose (UA) Negative Urine Ketones Negative Ur Blood (Man) 1+ H Urine Nitrate Negative Urine Bilirubin Negative Urine Urobilinogen Negative Leukocyte Esterase Rfl Trace H Urine RBC 0-2 Urine WBC 0-3 Ur Squamous Epith Cells Moderate H Ur Transition Epith Cell Rare Urine Bacteria Trace Urine Mucus Rare 06/09/19 06/09/19 06/09/19
[2019-06-09 12:20] LABS: INR 1.4; Prothrombin Time 17.2 Seconds (11.1-14.7)
--- NOTE | 2019-06-09 13:25 | PCNSR ---
On 06/09/19, the student, [Guadalupe Martines ], provided care and completed [facility] documentation on this patient. I have reviewed the student's documentation and agree with the findings.
--- NOTE | 2019-06-09 13:35 | CONS_ITS ---
DATE OF CONSULTATION: 06/09/2019 REASON FOR CONSULTATION: Diverticular abscess. HISTORY OF PRESENT ILLNESS: The patient is a 78-year-old female who has been in various hospitals for the last 5 weeks with diverticular abscess. She has received 2 prolonged courses of aztreonam and metronidazole as treatment. She has not yet undergone any surgical intervention. Her most recent course finished about 1 week prior to admission. She has been at [place], but returned here yesterday after suffering a seizure with about 10 minutes of loss of consciousness. She has had no abdominal nor back pain. Appetite remains compromised. No nausea or vomiting and no fever, chills, or sweats. ALLERGIES: MULTIPLE DESCRIBED PREVIOUSLY. HABITS: No tobacco. No alcohol to excess. PRESENT MEDICATIONS: No antibiotics. PAST MEDICAL HISTORY: Breast cancer, skin cancer, colonoscopy, D and C, tonsillectomy, right total hip arthroplasty, seasonal allergies, hypertension, hyperlipidemia, gout, peptic ulcer disease, stage IV chronic renal insufficiency, chronic anemia. REVIEW OF SYSTEMS: 14-point review otherwise negative. FAMILY HISTORY: See chart. SOCIAL HISTORY: Daughter at the bedside. 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 PHYSICAL EXAMINATION: GENERAL: This is an elderly female, who appears weak and malnourished. No respiratory distress. VITAL SIGNS: Afebrile. Normal vital signs, 103/52, 72, 19. SKIN: Decreased turgor. No rashes. EENT: The conjunctivae are normal. Pupils equal, round, reactive. Mucous membranes are dry. NECK: Without meningismus, mass or tracheal deviation. LUNGS: Clear to auscultation with good air entry. CARDIAC: Regular rate and rhythm. She has a grade 1/6 systolic murmur at the left and right upper sternal borders. No gallops. ABDOMEN: Nondistended. Hypoactive but present bowel sounds. No tenderness. No palpable masses. EXTREMITIES: No clubbing, cyanosis, or edema. LABORATORY DATA: White count 5.2, hemoglobin 7.4, platelets of 31,000. Prothrombin time 17.2. She has hyponatremia. CO2 is 18, BUN 33, creatinine 2.9, calcium 8.2, AST low, ALT low, alkaline phosphatase 110, albumin 2. Urinalysis, multiple abnormalities which do not suggest infection. Blood cultures repeated last evening, no growth after short incubation. RADIOLOGY DATA: Abdomen and pelvic CT with fluid collections in the sigmoid and also diverticulitis, small volume ascites, pleural effusions, and cystic lesion in the pancreas. ASSESSMENT: 1. Sigmoid diverticulitis, now chronic, progressive by CT, but clinically not progressive and without sepsis. 2. Multiple antibiotic allergies. 3. Severe protein-calorie malnutrition. 4. Debility. 5. Seizure disorder, not related directly to her sigmoid abscesses. RECOMMENDATIONS: 1. Evaluation for seizure at your discretion. 2. No resumption of antibiotics at this time. 3. Discussed with Dr. Lerner an elective sigmoid resection is still indicated, but not urgent. 4. If she has clinical deterioration and sign of progressive abscess clinically, then aztreonam and metronidazole would still be a reasonable option. Thank you very much for asking me to see her. LETY ANTUNEZ M.D. SKIN THERAPIST SKIN THERAPIST D I MT: [place]
--- NOTE | 2019-06-09 14:31 | PCOTNOTE ---
Attempted to see for OT evaluation. Per RN, patient is going to be receiving platelets then going down for a CT. She recommends waiting until tomorrow morning to see her. Will continue to attempt.
--- NOTE | 2019-06-09 15:45 | PC.NURSE ---
To CT per bed, IV intact.
--- NOTE | 2019-06-09 15:46 | WPDMODSED ---
Moderate Sedation Note-Pt Data Patient Data Diagnosis: Intraperitoneal abscess. Present Complaint: Intraperitoneal abscess. Procedure to be performed/Plan: CT-guided intraperitoneal abscess drainage. Allergies Allergy/AdvReac Type Severity Reaction Status Date / Time ciprofloxacin Allergy Severe Anaphylactic Verified 05/06/19 10:34 Shock cephalexin Allergy Intermediate TINNITIS Verified 05/06/19 10:34 Penicillins Allergy Intermediate HIVES Verified 05/06/19 10:34 Quinolones Allergy Intermediate HIVES Verified 05/06/19 10:34 Home Medications Medication Instructions Recorded Confirmed Type allopurinol 100 mg PO BID 05/13/19 06/08/19 History betamethasone, augmented 1 applic TOPICAL PRN 05/13/19 06/08/19 History cholecalciferol (vitamin D3) 1,000 unit PO DAILY 05/13/19 06/08/19 History [Vitamin D3] montelukast 10 mg PO DAILY 05/13/19 06/08/19 History simvastatin 10 mg PO EVERY OTHER DAY 05/13/19 06/09/19 History vitamin B complex [B 1 tablet PO DAILY 05/13/19 06/08/19 History Complex-Vitamin B12] Epogen 10,000 units SUBCUT MOWEFR 30 Days 06/04/19 06/08/19 Rx ml polyethylene glycol 3350 [Miralax] 17 g PO QAM 30 Days each 06/04/19 06/09/19 Rx carvedilol [Coreg] 25 mg PO Q12HR #10 tablet 06/07/19 06/08/19 Rx clonidine HCl 0.1 mg PO Q12HR #10 tablet 06/07/19 06/08/19 Rx fluticasone propionate 2 spray INTRANASAL HS #10 ml 06/07/19 06/08/19 Rx furosemide 20 mg PO DAILY #10 tablet 06/07/19 06/09/19 Rx hydralazine 10 mg PO QID #10 tablet 06/07/19 06/08/19 Rx levetiracetam 250 mg PO Q12HR #10 tablet 06/07/19 06/08/19 Rx melatonin 5 mg PO HS PRN #10 tablet 06/07/19 06/09/19 Rx pantoprazole 40 mg PO Q12HR #10 tablet 06/07/19 06/09/19 Rx Current Medications: Active Medications Allopurinol (Zyloprim) 100 mg PO Q12HR LYLE Last Admin: 06/09/19 09:13 Dose: 100 mg Documented by: Carvedilol (Coreg) 25 mg PO Q12HR [facility] Last Admin: 06/09/19 09:11 Dose: 25 mg Documented by: Fluticasone Propionate (Flonase 0.05% Nasal [place]) 2 spray NASAL HS [facility] Last Admin: 06/08/19 21:22 Dose: 2 spray Documented by: Sodium Chloride (Normal Saline Iv) 250 mls @ 30 mls/hr IV CONT .Q8H20M STA Stop: 06/09/19 19:52 Levetiracetam (Keppra Tablet) 250 mg PO Q12HR [facility] Last Admin: 06/09/19 09:13 Dose: 250 mg Documented by: Montelukast Sodium (Singulair) 10 mg PO DAILY [facility] Last Admin: 06/09/19 09:13 Dose: 10 mg Documented by: Ondansetron HCl (Zofran Inj) 4 mg IV PUSH Q6H PRN PRN Reason: Nausea And Vomiting Vitamin B Complex (Vitamin B Complex) 1 cap PO DAILY [facility] Last Admin: 06/09/19 09:11 Dose: 1 cap Documented by: Vitamin D (Vitamin D) 1,000 unit PO DAILY [facility] Last Admin: 06/09/19 09:13 Dose: 1,000 unit Documented by: Sedation/Anesthesia: No previous sedation/anesthesia problems (including family history). 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 Chronic anemia She is a patient of Dr. Telles at [facility]. A bone marrow biopsy done about 5 years ago was reportedly unremarkable. Most likely related to chronic renal failure. On Epogen Friday Chronic kidney disease, stage 4 (severe) Baseline creatinine around 3.0. Diverticulitis of colon with perforation Summer 2018, hospitalized at [facility]. Again in May of 2019 with intra-abdominal abscesses, currently 3 hospitalizations for this. Diverticulosis of colon with hemorrhage Diverticular disease with bleeding and anemia. Gastric ulcer Found May of 2019. Gout Hyperlipidemia Hypertension Nausea & vomiting Pancytopenia Seasonal allergies Seizure Patient was getting up out of a chair at [facility] and rolled her eyes back and slid to the floor patient stated her legs gave out. No official diagnosis of seizure however she was started on
--- NOTE | 2019-06-09 17:13 | PC.NURSE ---
Pt returned to room via bed. IV intact. vitals stable.
[2019-06-09] MEDS: FLUTICASONE PROPIONATE 0.05% NA SPR 16 GM BTL (*BKC) 2 SPRAY NASAL (21:49)
[2019-06-10 05:57] LABS: Hematocrit 24.1 % (37.0-47.0); Hemoglobin 7.6 g/dL (12.0-15.0); Immature Platelet Fraction Pct 5.8 % (0.9-11.2); Mean Corpuscular HGB Conc 31.5 g/dl (32-36); Mean Corpuscular Hemoglobin 29.7 pg (26-34); Mean Corpuscular Volume 94.1 fl (80-100); Mean Platelet Volume 11.6 fl (7.4-10.4); Platelet Count Result 67 k/mm3 (150-375); Red Blood Count 2.56 M/mm3 (4.2-5.4); Red Cell Distribution Width 17.2 % (11.5-14.5); White Blood Count 4.2 K/mm3 (4.5-10.0)
[2019-06-10 06:01] VITALS: BP 131/66; PULSE 84; RESP 16; TEMP 36.2; O2SAT 94
[2019-06-10 06:03] VITALS: BP 133/68; BP 139/69
[2019-06-10 06:15] LABS: Blood Urea Nitrogen 34 mg/dL (7-17); Calcium 8.2 mg/dL (8.4-10.2); Carbon Dioxide 19 mmol/L (22-30); Chloride 100 mmol/L (98-107); Estimated CRCL calculation 16 ml/min; Estimated Glomerular Filt Rate 18; Glucose 81 mg/dL (65-105); Phosphorus 3.8 mg/dL (2.5-4.5); Potassium 3.8 mmol/L (3.4-5.0); Sodium 131 mmol/L (137-145)
--- NOTE | 2019-06-10 08:02 | WPDGIPROGNO ---
Progress Note: A&P Additional Plan Patient alert this morning. Offers no additional complaints. She had percutaneous drainage of abdominal abscess yesterday. It appears 4cc of fluid was obtained. Physical exam reveals her to be afebrile. Vital signs stable. Abdomen remains soft and nontender. Right lower quadrant catheter in place. Impression 1. Diverticulitis with pericolonic abscess. Now status post CT-guided drainage. Antibiotics continue per Dr. Carballo. 2. Chronic kidney disease. 3. Thrombocytopenia. 4. Peptic ulcer disease. 5. Renal mass by CT scan. 6. Pancreatic cyst. Plan is to continue antibiotics. Surgery is following. Subjective Date/time seen: 06/10/19 08:02 Objective Data Vital Signs Vital Signs: Vital Signs - 24 hr 06/09/19 09:11 06/09/19 10:00 06/09/19 14:00 Temperature 36.7 C 36.3 C L Pulse Rate 75 72 73 Respiratory Rate 19 17 Blood Pressure 103/52 L 141/67 H Pulse Oximetry 100 100 06/09/19 14:15 06/09/19 15:15 06/09/19 15:58 Temperature 36.2 C L 36.4 C Pulse Rate 74 79 87 Respiratory Rate 19 19 14 Blood Pressure 142/69 H 142/69 H 147/76 H Pulse Oximetry 100 100 100 06/09/19 16:15 06/09/19 16:20 06/09/19 16:25 Temperature Pulse Rate 84 84 85 Respiratory Rate 12 13 13 Blood Pressure 139/70 142/70 H 145/69 H Pulse Oximetry 100 100 100 06/09/19 16:30 06/09/19 16:35 06/09/19 16:40 Temperature Pulse Rate 84 84 84 Respiratory Rate 14 15 13 Blood Pressure 145/74 H 146/74 H 148/75 H Pulse Oximetry 100 100 100 06/09/19 16:45 06/09/19 16:50 06/09/19 17:00 Temperature 36.1 C L Pulse Rate 85 86 83 Respiratory Rate 13 12 14 Blood Pressure 146/68 H 145/70 H 150/74 H Pulse Oximetry 100 100 100 06/09/19 17:15 06/09/19 17:30 06/09/19 21:51 Temperature Pulse Rate 84 83 90 Respiratory Rate 14 14 Blood Pressure 137/67 138/66 Pulse Oximetry 100 99 06/09/19 22:20 06/10/19 06:01 06/10/19 06:03 Temperature 36.1 C L 36.2 C L Pulse Rate 83 84 Respiratory Rate 16 16 Blood Pressure 150/70 H 131/66 139/69 Pulse Oximetry 100 94 Intake/Output Intake/Output: Intake & Output 06/07/19 06/08/19 06/09/19 06/10/19 23:59 23:59 23:59 23:59 Intake Total 1532 300 Output Total 400 690 Balance 1132 -390 Meds/Results Medications: Active Medications Generic Name Dose Route Start Last Admin Trade Name Freq PRN Reason Stop Dose Admin Allopurinol 100 mg 06/08/19 21:00 06/09/19 21:52 Zyloprim PO 100 mg Q12HR LYLE Administration Carvedilol 25 mg 06/08/19 21:00 06/09/19 21:51 Coreg PO 25 mg Q12HR LYLE Administration Fluticasone Propionate 2 spray 06/08/19 21:00 06/09/19 21:49 Flonase 0.05% Nasal [place] NASAL 2 spray HS LYLE Administration Levetiracetam 250 mg 06/08/19 21:00 06/09/19 21:50 Keppra Tablet PO 250 mg Q12HR LYLE Administration Montelukast Sodium 10 mg 06/09/19 09:00 06/09/19 09:13 Singulair PO 10 mg DAILY LYLE Administration Ondansetron HCl 4 mg 06/08/19 18:39 Zofran Inj IV PUSH Q6H PRN Nausea And Vomiting Vitamin B Complex 1 cap 06/09/19 09:00 06/09/19 09:11 Vitamin B Complex PO 1 cap DAILY LYLE Administration Vitamin D 1,000 unit 06/09/19 09:00 06/09/19 09:13 Vitamin D PO 1,000 unit DAILY LYLE Administration Radiology Results: ITS Impressions Catheter Placement CT 06/09/19 17:05 IMPRESSION: 1. Successful CT-guided right percent perisigmoid abscess drainage. 2. 4 mL mckinnon, opaque fluid was sent for aerobic and anaerobic cultures. Labs Labs: Laboratory Results - last 24 hr 06/09/19 06/09/19 06/10/19 12:00 12:03 05:10 WBC 4.2 L RBC 2.56 L Hgb 7.6 L Hct 24.1 L MCV 94.1 MCH 29.7 MCHC 31.5 L RDW 17.2 H Plt Count 67 L D MPV 11.6 H % Immature Plt Fraction 5.8 PT 17.2 H INR 1.4 APTT 30.0 Sodium Potassium Chloride Carbon Dioxide B
[2019-06-10 09:05] VITALS: PULSE 77
[2019-06-10] MEDS: allopurinoL 100 MG TABLET PO ×2 (09:05→21:47)
[2019-06-10] MEDS: VITAMIN B COMPLEX CAPSULE 1 CAP PO (09:05)
[2019-06-10] MEDS: carvediloL 25 MG TABLET PO ×2 (09:05→21:45)
[2019-06-10] MEDS: MONTELUKAST SODIUM 10 MG TABLET PO (09:05)
[2019-06-10] MEDS: CHOLECALCIFEROL 1,000 UNIT TABLET 1000 UNITS PO (09:05)
[2019-06-10] MEDS: levETIRAcetam 250 MG TABLET PO ×2 (09:06→21:45)
--- NOTE | 2019-06-10 09:35 | PM.PNGS ---
Progress Note: A&P Assessment and Plan (1) Diverticular disease of intestine with perforation and abscess: Code(s): K57.80 - Diverticulitis of intestine, part unspecified, with perforation and abscess without bleeding Status: Acute Assessment and Plan: Percutaneous abscess drain placed on 06/09/19. Continue to suction. ID consulted and appreciate recommendations. Will hold off on antibiotics unless she shows clinical deterioration or or signs of the abscess progressing clinically. Will ultimately require surgery, but still planning to do this electively if she continues to improve with percutaneous drainage of the abscess. Encouraged increased activity. Continue low-fiber diet. (2) Thrombocytopenia: Code(s): D69.6 - Thrombocytopenia, unspecified Status: Acute Assessment and Plan: Platelets up to 67,000 this morning after transfusion. (3) Chronic anemia: Code(s): D64.9 - Anemia, unspecified Status: Acute (4) Chronic kidney disease, stage 4 (severe): Code(s): N18.4 - Chronic kidney disease, stage 4 (severe) Status: Chronic (5) Generalized weakness: Code(s): R53.1 - Weakness Status: Acute Assessment and Plan: Continue PT/OT (6) Hypertension: Qualifiers: Hypertension type: essential hypertension Qualified Code(s): I10 - Essential (primary) hypertension Code(s): I10 - Essential (primary) hypertension Status: Chronic (7) Unresponsive episode: Code(s): R41.89 - Other symptoms and signs involving cognitive functions and awareness Status: Acute Assessment and Plan: Management per Neurology. (8) Edema: Qualifiers: Edema type: unspecified Qualified Code(s): R60.9 - Edema, unspecified Code(s): R60.9 - Edema, unspecified Status: Acute Additional Plan Pancreatic lesion noted on CT. Plan for further work-up once more stable. Discussed plan of care with Dr. Lerner. Subjective Subjective Date/Time Seen: 06/10/19 09:10 Patient reports: no new complaints, tolerating a regular diet, flatus and bowel movement Interval history: Patient seen and examined. Percutaneous abscess drain placed yesterday in Radiology. Tolerating a low-fiber diet. Reports multiple bowel movements yesterday and 1 small 1 this morning. Denies nausea, vomiting, or bloating. Still feels tired today and overall weakness, but is sitting up in the chair. This is the 1st time she has got out of bed in at least 1-2 days. No other complaints at this time. Review of Systems Review of Systems: All systems reviewed & are unremarkable except as noted in HPI and below Exam Const: General: comfortable, no acute distress, alert and awake Orientation/consciousness: patient oriented x3 GI: Inspection: other (Very mild distention) GI Palp: Yes Soft to palpation, Yes Tenderness to palpation present (GI) (Right lower quadrant near perc drain), No Guarding due to palpation present (GI) and No Rebound tenderness present Auscultation: normal bowel sounds Other: RLQ percutaneous abscess drain with cloudy serosanguineous drainage in bag Neuro: General: moves all extremities Extrem: General: normal to inspection and edema bilateral (Mild) Psych: Mental Status: mental status grossly normal Affect: normal affect Attitude: cooperative Thought process: Normal thought process present Objective Data Vital Signs Vital Signs: Vital Signs - 24 hr 06/09/19 10:00 06/09/19 14:00 06/09/19 14:15 Temperature 36.7 C 36.3 C L 36.2 C L Pulse Rate 72 73 74 Respiratory Rate 19 17 19 Blood Pressure 103/52 L 141/67 H 142/69 H Pulse Oximetry 100 100 100 06/09/19 15:15 06/09/19 15:58 06/09/19 16:15 Temperature 36.4 C Pulse Rate 79 87 84 Respiratory Rate 19 14 12 Blood Pressure 142/69 H 147/76 H 139/70 Pulse Oximetry 100 100 100 06/09/19 16:20 06/09/19 16:25 06/09/19 16:30 Temperature Pulse Rate 84 85 84 Respira
--- NOTE | 2019-06-10 11:02 | PM.PNNEP ---
Progress Note: A&P Assessment and Plan (1) Chronic kidney disease, stage 4 (severe): Code(s): N18.4 - Chronic kidney disease, stage 4 (severe) Status: Chronic Assessment and Plan: relatively stable baseline creatinine runs ~ 2.5 - 3.0mg/dl in the last year or so due to hypertension and vascular disease continue supportive therapy (2) Diverticular disease of intestine with perforation and abscess: Code(s): K57.80 - Diverticulitis of intestine, part unspecified, with perforation and abscess without bleeding Status: Acute Assessment and Plan: Surgery following s/p percutaneous drain placement for abscess advance diet as tolerated (3) Hypertension: Qualifiers: Hypertension type: essential hypertension Qualified Code(s): I10 - Essential (primary) hypertension Code(s): I10 - Essential (primary) hypertension Status: Chronic Assessment and Plan: reasonable control at this time follow trend of hemodynamics BP medications adjustments as deemed necessary would not be too aggressive given known CKD and acute illness/infection (4) Hyponatremia: Code(s): E87.1 - Hypo-osmolality and hyponatremia Status: Acute Assessment and Plan: mainly due to renal dysfunction relatively stable follow trend (5) Chronic anemia: Code(s): D64.9 - Anemia, unspecified Status: Acute Assessment and Plan: multifactorial etiology: - previous JINA - known CKD - acute illness/inflammation - blood loss? on Epogen (gets as an outpatient as well) follow trend of H/H (6) Generalized weakness: Code(s): R53.1 - Weakness Status: Acute Assessment and Plan: due to acute illness and multiple hospitalizations PT/OT as tolerated Will continue to follow. Subjective Date/time seen: 06/10/19 11:02 Appears to be doing reasonably well at the time of my visit; no acute new complaints and tolerating oral intake; still with some fatigue/weakness; s/p percutaneous abscess drain per Interventional Radiology; daughters at bedside and we discussed the situation. Exam Narrative: Exam Narrative: General: WD/WN male in NAD Heart: normal S1 and S2; no rub Lungs: clear to auscultation Abdomen: soft, + tenderness near drain; positive bowel sounds Extremities: no cyanosis or clubbing; trace edema Skin: warm and dry Objective Data Vital Signs Vital Signs: Vital Signs Temp Pulse Resp BP Pulse Ox 06/10/19 09:05 77 06/10/19 06:03 139/69 06/10/19 06:01 36.2 C L 84 16 131/66 94 06/09/19 22:20 36.1 C L 83 16 150/70 H 100 06/09/19 21:51 90 06/09/19 17:30 83 14 138/66 99 06/09/19 17:15 84 14 137/67 100 06/09/19 17:00 83 14 150/74 H 100 06/09/19 16:50 86 12 145/70 H 100 06/09/19 16:45 36.1 C L 85 13 146/68 H 100 06/09/19 16:40 84 13 148/75 H 100 06/09/19 16:35 84 15 146/74 H 100 06/09/19 16:30 84 14 145/74 H 100 06/09/19 16:25 85 13 145/69 H 100 06/09/19 16:20 84 13 142/70 H 100 06/09/19 16:15 84 12 139/70 100 06/09/19 15:58 87 14 147/76 H 100 06/09/19 15:15 36.4 C 79 19 142/69 H 100 06/09/19 14:15 36.2 C L 74 19 142/69 H 100 06/09/19 14:00 36.3 C L 73 17 141/67 H 100 Intake/Output Intake/Output: Intake & Output 06/07/19 06/08/19 06/09/19 06/10/19 23:59 23:59 23:59 23:59 Intake Total 1532 400 Output Total 400 690 Balance 1132 -290 Meds/Results Medications: Active Medications Generic Name Dose Route Start Last Admin Trade Name Yinka PRN Reason Stop Dose Admin Allopurinol 100 mg 06/08/19 21:00 06/10/19 09:05 Zyloprim PO 100 mg Q12HR LYLE Administration Carvedilol 25 mg 06/08/19 21:00 06/10/19 09:05 Coreg PO 25 mg Q12HR LYLE Administration Fluticasone Propionate 2 spray 06/08/19 21:00 06/09/19 21:49 Flonase 0.05% Nasal S
--- NOTE | 2019-06-10 11:29 | WPDNEUROPN ---
Progress Note: A&P Additional Plan neurologically unchanged but other studies as noted abnormal Review of Systems Review of Systems: All systems reviewed & are unremarkable except as noted in HPI and below Exam Const: General: comfortable and no acute distress Eyes: General: appearance normal, both eyes and all related structures Alignment and Position: alignment normal Periorbital: periorbital findings normal Eyelids: eyelids normal Cornea: corneas normal Pupils: Equal, round and reactive pupils present Neck: Neck: full ROM Resp: Effort & Inspection: able to speak in complete sentences Auscultation: clear to auscultation bilaterally Cardio: Rate: regular rate GI: Auscultation: normal bowel sounds Skin: General skin exam: no rashes or lesions noted Neuro: Cranial nerves: Yes CN's II-XII intact bilaterally Psych: Appearance: grossly normal Objective Data Vital Signs Vital Signs: Vital Signs - 24 hr 06/09/19 14:00 06/09/19 14:15 06/09/19 15:15 Temperature 36.3 C L 36.2 C L 36.4 C Pulse Rate 73 74 79 Respiratory Rate 17 19 19 Blood Pressure 141/67 H 142/69 H 142/69 H Pulse Oximetry 100 100 100 06/09/19 15:58 06/09/19 16:15 06/09/19 16:20 Temperature Pulse Rate 87 84 84 Respiratory Rate 14 12 13 Blood Pressure 147/76 H 139/70 142/70 H Pulse Oximetry 100 100 100 06/09/19 16:25 06/09/19 16:30 06/09/19 16:35 Temperature Pulse Rate 85 84 84 Respiratory Rate 13 14 15 Blood Pressure 145/69 H 145/74 H 146/74 H Pulse Oximetry 100 100 100 06/09/19 16:40 06/09/19 16:45 06/09/19 16:50 Temperature 36.1 C L Pulse Rate 84 85 86 Respiratory Rate 13 13 12 Blood Pressure 148/75 H 146/68 H 145/70 H Pulse Oximetry 100 100 100 06/09/19 17:00 06/09/19 17:15 06/09/19 17:30 Temperature Pulse Rate 83 84 83 Respiratory Rate 14 14 14 Blood Pressure 150/74 H 137/67 138/66 Pulse Oximetry 100 100 99 06/09/19 21:51 06/09/19 22:20 06/10/19 06:01 Temperature 36.1 C L 36.2 C L Pulse Rate 90 83 84 Respiratory Rate 16 16 Blood Pressure 150/70 H 131/66 Pulse Oximetry 100 94 06/10/19 06:03 06/10/19 09:05 Temperature Pulse Rate 77 Respiratory Rate Blood Pressure 139/69 Pulse Oximetry Intake/Output Intake/Output: Intake & Output 06/07/19 06/08/19 06/09/19 06/10/19 23:59 23:59 23:59 23:59 Intake Total 1532 400 Output Total 400 690 Balance 1132 -290 Meds/Results Medications: Active Medications Generic Name Dose Route Start Last Admin Trade Name Freq PRN Reason Stop Dose Admin Allopurinol 100 mg 06/08/19 21:00 06/10/19 09:05 Zyloprim PO 100 mg Q12HR LYLE Administration Carvedilol 25 mg 06/08/19 21:00 06/10/19 09:05 Coreg PO 25 mg Q12HR LYLE Administration Epoetin Nixon 10,000 units 06/10/19 11:15 Epogen SUB-Q DIRECTED LYLE Fluticasone Propionate 2 spray 06/08/19 21:00 06/09/19 21:49 Flonase 0.05% Nasal [place] NASAL 2 spray HS LYLE Administration Levetiracetam 250 mg 06/08/19 21:00 06/10/19 09:06 Keppra Tablet PO 250 mg Q12HR LYLE Administration Montelukast Sodium 10 mg 06/09/19 09:00 06/10/19 09:05 Singulair PO 10 mg DAILY LYLE Administration Ondansetron HCl 4 mg 06/08/19 18:39 Zofran Inj IV PUSH Q6H PRN Nausea And Vomiting Vitamin B Complex 1 cap 06/09/19 09:00 06/10/19 09:05 Vitamin B Complex PO 1 cap DAILY LYLE Administration Vitamin D 1,000 unit 06/09/19 09:00 06/10/19 09:05 Vitamin D PO 1,000 unit DAILY LYLE Administration Radiology Results: ITS Impressions Catheter Placement CT 06/09/19 17:05 IMPRESSION: 1. Successful CT-guided right percent perisigmoid abscess drainage. 2. 4 mL mckinnon, opaque fluid was sent for aerobic and anaerobic cultures. Labs Labs: Laboratory Results - last 24 hr 06/09/19 06/09/19 06/10/19 12:00 12:03 05:10 WBC 4.2 L RBC 2.56 L Hgb 7.6 L Hct 24.1 L MCV 94.1 MCH 29.7
--- NOTE | 2019-06-10 13:14 | P.PNIM_ITS ---
Progress Note: A&P Assessment and Plan (1) URI (upper respiratory infection): Qualifiers: URI type: unspecified URI Qualified Code(s): J06.9 - Acute upper respiratory infection, unspecified Code(s): J06.9 - Acute upper respiratory infection, unspecified Status: Acute Assessment and Plan: * Symptomatic treatment (2) Unresponsive episode: Code(s): R41.89 - Other symptoms and signs involving cognitive functions and awareness Status: Acute Assessment and Plan: * C/w seizure with postictal state. * Currently on Keppra 250mg q 12 h w/o recurrence. (3) Diverticular disease of intestine with perforation and abscess: Code(s): K57.80 - Diverticulitis of intestine, part unspecified, with perforation and abscess without bleeding Status: Acute Assessment and Plan: * CT shows worsening * Platelets 3/4, IR inserted drain 3/4 * Draining serosanguinous fluid (4) Chronic anemia: Code(s): D64.9 - Anemia, unspecified Status: Acute Assessment and Plan: * Continue with Epogen MWF as ordered. * Known to have pancytopenia and had a bone marrow biopsy in 2014 that was unremarkable. (5) Right knee pain: Qualifiers: Chronicity: acute Qualified Code(s): M25.561 - Pain in right knee Code(s): M25.561 - Pain in right knee Status: Acute Assessment and Plan: * Likely due to fall at facility * PT/OT * Monitor progress (6) Edema: Qualifiers: Edema type: unspecified Qualified Code(s): R60.9 - Edema, unspecified Code(s): R60.9 - Edema, unspecified Status: Acute Assessment and Plan: * Continue with lamin wraps to bilateral lower extremities. (7) Generalized weakness: Code(s): R53.1 - Weakness Status: Acute Assessment and Plan: * PT/OT (8) Chronic kidney disease, stage 4 (severe): Code(s): N18.4 - Chronic kidney disease, stage 4 (severe) Status: Chronic Assessment and Plan: * Continue to monitor * Avoid nephrotoxic drugs * Renal dose meds (9) Hyponatremia: Code(s): E87.1 - Hypo-osmolality and hyponatremia Status: Acute Assessment and Plan: * Chronic and relatively stable * Urine Na 49 on 05/26/2019 (10) Hypertension: Qualifiers: Hypertension type: essential hypertension Qualified Code(s): I10 - Essential (primary) hypertension Code(s): I10 - Essential (primary) hypertension Status: Chronic Assessment and Plan: * Hold meds and monitor Subjective Date/time seen: 06/10/19 13:14 Interval history: C/o UR drainage, dry cough. No fever or chills or ST. No cp or sob. Edema both arms, legs. No gi/gu c/o. No bleeding. Review of Systems 2 Review of Systems: All systems reviewed & are unremarkable except as noted in HPI and below Exam Narrative: Exam Narrative: HEENT: EOMI, PERRL, scoerae nonicteric, pharyngeal mucosa pink and intact NECK: No JVD, adenopathy, or thyromegaly CHEST: Clear to auscultation. Normal effort. HEART: NL S1/S2, regular, no murmur ABDOMEN: BS+, soft, nontender, no mass, no bruits EXTREMITIES: Trace leg edema NEUROLOGIC: CN intact and symmetric to inspection. MUSCULOSKELETAL: Tone and strength symmetric. PSYCH: Alert. Oriented to person, place, and time. Objective Data Vital Signs Vital Signs: Vital Signs - 24 hr 06/09/19 14:00 06/09/19 14:15 06/09/19 15:15
--- NOTE | 2019-06-10 13:14 | PM.IMPN ---
Progress Note: A&P Assessment and Plan (1) URI (upper respiratory infection): Qualifiers: URI type: unspecified URI Qualified Code(s): J06.9 - Acute upper respiratory infection, unspecified Code(s): J06.9 - Acute upper respiratory infection, unspecified Status: Acute Assessment and Plan: Symptomatic treatment (2) Unresponsive episode: Code(s): R41.89 - Other symptoms and signs involving cognitive functions and awareness Status: Acute Assessment and Plan: C/w seizure with postictal state. Currently on Keppra 250mg q 12 h w/o recurrence. (3) Diverticular disease of intestine with perforation and abscess: Code(s): K57.80 - Diverticulitis of intestine, part unspecified, with perforation and abscess without bleeding Status: Acute Assessment and Plan: CT shows worsening Platelets 3/4, IR inserted drain 3/4 Draining serosanguinous fluid (4) Chronic anemia: Code(s): D64.9 - Anemia, unspecified Status: Acute Assessment and Plan: Continue with Epogen MWF as ordered. Known to have pancytopenia and had a bone marrow biopsy in 2014 that was unremarkable. (5) Right knee pain: Qualifiers: Chronicity: acute Qualified Code(s): M25.561 - Pain in right knee Code(s): M25.561 - Pain in right knee Status: Acute Assessment and Plan: Likely due to fall at facility PT/OT Monitor progress (6) Edema: Qualifiers: Edema type: unspecified Qualified Code(s): R60.9 - Edema, unspecified Code(s): R60.9 - Edema, unspecified Status: Acute Assessment and Plan: Continue with lamin wraps to bilateral lower extremities. (7) Generalized weakness: Code(s): R53.1 - Weakness Status: Acute Assessment and Plan: PT/OT (8) Chronic kidney disease, stage 4 (severe): Code(s): N18.4 - Chronic kidney disease, stage 4 (severe) Status: Chronic Assessment and Plan: Continue to monitor Avoid nephrotoxic drugs Renal dose meds (9) Hyponatremia: Code(s): E87.1 - Hypo-osmolality and hyponatremia Status: Acute Assessment and Plan: Chronic and relatively stable Urine Na 49 on 05/26/2019 (10) Hypertension: Qualifiers: Hypertension type: essential hypertension Qualified Code(s): I10 - Essential (primary) hypertension Code(s): I10 - Essential (primary) hypertension Status: Chronic Assessment and Plan: Hold meds and monitor Subjective Date/time seen: 06/10/19 13:14 Interval history: C/o UR drainage, dry cough. No fever or chills or ST. No cp or sob. Edema both arms, legs. No gi/gu c/o. No bleeding. Review of Systems Review of Systems: All systems reviewed & are unremarkable except as noted in HPI and below Exam Narrative: Exam Narrative: HEENT: EOMI, PERRL, scoerae nonicteric, pharyngeal mucosa pink and intact NECK: No JVD, adenopathy, or thyromegaly CHEST: Clear to auscultation. Normal effort. HEART: NL S1/S2, regular, no murmur ABDOMEN: BS+, soft, nontender, no mass, no bruits EXTREMITIES: Trace leg edema NEUROLOGIC: CN intact and symmetric to inspection. MUSCULOSKELETAL: Tone and strength symmetric. PSYCH: Alert. Oriented to person, place, and time. Objective Data Vital Signs Vital Signs: Vital Signs - 24 hr 06/09/19 14:00 06/09/19 14:15 06/09/19 15:15 Temperature 97.3 F L 97.2 F L 97.6 F Pulse Rate 73 74 79 Respiratory Rate 17 19 19 Blood Pressure 141/67 H 142/69 H 142/69 H Pulse Oximetry 100 100 100 06/09/19 15:58 06/09/19 16:15 06/09/19 16:20 Temperature Pulse Rate 87 84 84 Respiratory Rate 14 12 13 Blood Pressure 147/76 H 139/70 142/70 H Pulse Oximetry 100 100 100 06/09/19 16:25 06/09/19 16:30 06/09/19 16:35 Temperature Pulse Rate 85 84 84 Respiratory Rate 13 14 15 Blood Pressure 145/69 H 145/74 H 146/74 H Pulse Oximetry 100 100 100 06/09/19 16:40 03
[2019-06-10 14:00] VITALS: BP 152/80; PULSE 87; RESP 18; TEMP 36.8; O2SAT 99
--- NOTE | 2019-06-10 14:42 | WPDINFPN2 ---
Progress Note: A&P Assessment and Plan (1) Diverticular disease of intestine with perforation and abscess: Code(s): K57.80 - Diverticulitis of intestine, part unspecified, with perforation and abscess without bleeding Status: Acute Assessment and Plan: 1. Diverticular abscess, drained percutaneously POD #1. 2. Multiple allergies 3. Seizure, not apparently due to #1 4. Protein calorie malnutrition REC Not in need of antibiotic resumption. F/u on fluid culture and Gram stain. Subjective Date/time seen: 06/10/19 14:42 Interval history: no abd pain, no back pain, no further seizure Exam Narrative: Exam Narrative: afebrile Const: General: no acute distress GI: Inspection: non-distended GI Palp: Yes Soft to palpation, No Tenderness to palpation present (GI) and No Guarding due to palpation present (GI) Other: drain pink thin no sediment Objective Data Vital Signs Vital Signs: Vital Signs - 24 hr 06/09/19 15:15 06/09/19 15:58 06/09/19 16:15 Temperature 36.4 C Pulse Rate 79 87 84 Respiratory Rate 19 14 12 Blood Pressure 142/69 H 147/76 H 139/70 Pulse Oximetry 100 100 100 06/09/19 16:20 06/09/19 16:25 06/09/19 16:30 Temperature Pulse Rate 84 85 84 Respiratory Rate 13 13 14 Blood Pressure 142/70 H 145/69 H 145/74 H Pulse Oximetry 100 100 100 06/09/19 16:35 06/09/19 16:40 06/09/19 16:45 Temperature 36.1 C L Pulse Rate 84 84 85 Respiratory Rate 15 13 13 Blood Pressure 146/74 H 148/75 H 146/68 H Pulse Oximetry 100 100 100 06/09/19 16:50 06/09/19 17:00 06/09/19 17:15 Temperature Pulse Rate 86 83 84 Respiratory Rate 12 14 14 Blood Pressure 145/70 H 150/74 H 137/67 Pulse Oximetry 100 100 100 06/09/19 17:30 06/09/19 21:51 06/09/19 22:20 Temperature 36.1 C L Pulse Rate 83 90 83 Respiratory Rate 14 16 Blood Pressure 138/66 150/70 H Pulse Oximetry 99 100 06/10/19 06:01 06/10/19 06:03 06/10/19 09:05 Temperature 36.2 C L Pulse Rate 84 77 Respiratory Rate 16 Blood Pressure 131/66 139/69 Pulse Oximetry 94 Intake/Output Intake/Output: Intake & Output 06/07/19 06/08/19 06/09/19 06/10/19 23:59 23:59 23:59 23:59 Intake Total 1532 400 Output Total 400 690 Balance 1132 -290 Meds/Results Medications: Active Medications Generic Name Dose Route Start Last Admin Trade Name Freq PRN Reason Stop Dose Admin Allopurinol 100 mg 06/08/19 21:00 06/10/19 09:05 Zyloprim PO 100 mg Q12HR LYLE Administration Carvedilol 25 mg 06/08/19 21:00 06/10/19 09:05 Coreg PO 25 mg Q12HR LYLE Administration Epoetin [place] 10,000 units 06/11/19 09:00 Epogen SUB-Q [id number] LYLE Fluticasone Propionate 2 spray 06/08/19 21:00 06/09/19 21:49 Flonase 0.05% Nasal [place] NASAL 2 spray HS LYLE Administration Guaifenesin/Dextromethorphan 10 ml 06/10/19 13:18 Robitussin-Dm Syrup PO Q4H PRN Cough Levetiracetam 250 mg 06/08/19 21:00 06/10/19 09:06 Keppra Tablet PO 250 mg Q12HR LYLE Administration Montelukast Sodium 10 mg 06/09/19 09:00 06/10/19 09:05 Singulair PO 10 mg DAILY LYLE Administration Neomycin/Polymyxin/Bacitracin 1 applic 06/10/19 14:36 Triple Antibiotic Ointment TOPICAL PRN PRN Dry Skin Ondansetron HCl 4 mg 06/08/19 18:39 Zofran Inj IV PUSH Q6H PRN Nausea And Vomiting Vitamin B Complex 1 cap 06/09/19 09:00 06/10/19 09:05 Vitamin B Complex PO 1 cap DAILY LYLE Administration Vitamin D 1,000 unit 06/09/19 09:00 06/10/19 09:05 Vitamin D PO 1,000 unit DAILY LYLE Administration Radiology Results: ITS Impressions Catheter Placement CT 06/09/19 17:05 IMPRESSION: 1. Successful CT-guided right percent perisigmoid abscess drainage. 2. 4 mL mckinnon, opaque fluid was sent for aerobic and anaerobic cultures. Labs Labs: Laboratory Results - last 24 hr 06/10/19 06/10/19 05:10 05:10 WBC 4.2 L RBC 2.56 L Hgb
[2019-06-10] MEDS: GUAIFENESIN/DEXTROMETHORPHAN 10 ML UDC PO ×2 (14:50→21:44)
[2019-06-10 21:45] VITALS: PULSE 80
[2019-06-10] MEDS: FLUTICASONE PROPIONATE 0.05% NA SPR 16 GM BTL (*BKC) 2 SPRAY NASAL (21:46)
[2019-06-10] MEDS: NEOMYCIN/POLYMYXIN/BACITRACIN OINTMENT 15 GM TUBE 1 APPLIC TOPICAL (21:47)
[2019-06-10 22:37] VITALS: BP 140/74; PULSE 83; RESP 16; TEMP 36.4
[2019-06-11 06:16] VITALS: BP 130/64; PULSE 74; RESP 16; TEMP 36.1; O2SAT 96
[2019-06-11 08:00] VITALS: PULSE 74; RESP 16; O2SAT 96
[2019-06-11] MEDS: carvediloL 25 MG TABLET PO ×2 (09:16→21:21)
[2019-06-11] MEDS: allopurinoL 100 MG TABLET PO ×2 (09:16→21:21)
[2019-06-11] MEDS: MONTELUKAST SODIUM 10 MG TABLET PO (09:17)
[2019-06-11] MEDS: VITAMIN B COMPLEX CAPSULE 1 CAP PO (09:17)
[2019-06-11] MEDS: levETIRAcetam 250 MG TABLET PO ×2 (09:17→21:22)
[2019-06-11] MEDS: CHOLECALCIFEROL 1,000 UNIT TABLET 1000 UNITS PO (09:18)
[2019-06-11] MEDS: GUAIFENESIN/DEXTROMETHORPHAN 10 ML UDC PO (09:21)
--- NOTE | 2019-06-11 09:28 | WPDGIPROGNO ---
Progress Note: A&P Additional Plan Patient alert this morning. She remains weak. Tolerating diet. She denies abdominal pain. Physical exam reveals her to be alert. Vital signs stable. She is afebrile. HEENT exam unremarkable she is anicteric. Lungs are clear. Abdomen is soft. Nontender. No organomegaly. No palpable masses. Drain in the right lower quadrant. Impression 1. Intra-abdominal abscess. Appears to be related to recent diverticulitis. Now status post drainage. Has completed course Of antibiotics per Dr. oconnell. 2. Seizure. Unrelated to abscess. 3. Peptic ulcer disease. Appears stable. 4. Pancreatic cyst. Asymptomatic at present. Further investigation to be deferred till more stable. 5. Chronic kidney disease. 6. Renal lesion. Noted on CT scan. Asymptomatic at present. Subjective Date/time seen: 06/11/19 09:28 Objective Data Vital Signs Vital Signs: Vital Signs - 24 hr 06/10/19 14:00 06/10/19 21:45 06/10/19 22:37 Temperature 36.8 C 36.4 C Pulse Rate 87 80 83 Respiratory Rate 18 16 Blood Pressure 152/80 H 140/74 Pulse Oximetry 99 06/11/19 06:16 Temperature 36.1 C L Pulse Rate 74 Respiratory Rate 16 Blood Pressure 130/64 Pulse Oximetry 96 Intake/Output Intake/Output: Intake & Output 06/08/19 06/09/19 06/10/19 06/11/19 23:59 23:59 23:59 23:59 Intake Total 1532 800 300 Output Total 400 740 375 Balance 1132 60 -75 Meds/Results Medications: Active Medications Generic Name Dose Route Start Last Admin Trade Name Jakeq PRN Reason Stop Dose Admin Allopurinol 100 mg 06/08/19 21:00 06/11/19 09:16 Zyloprim PO 100 mg Q12HR LYLE Administration Carvedilol 25 mg 06/08/19 21:00 06/11/19 09:16 Coreg PO 25 mg Q12HR LYLE Administration Epoetin Nixon 10,000 units 06/11/19 09:00 Epogen SUB-Q [email or web address] LYLE Fluticasone Propionate 2 spray 06/08/19 21:00 06/10/19 21:46 Flonase 0.05% Nasal [place] NASAL 2 spray HS LYLE Administration Guaifenesin/Dextromethorphan 10 ml 06/10/19 13:18 06/11/19 09:21 Robitussin-Dm Syrup PO 10 ml Q4H PRN Administration Cough Levetiracetam 250 mg 06/08/19 21:00 06/11/19 09:17 Keppra Tablet PO 250 mg Q12HR LYLE Administration Montelukast Sodium 10 mg 06/09/19 09:00 06/11/19 09:17 Singulair PO 10 mg DAILY LYLE Administration Neomycin/Polymyxin/Bacitracin 1 applic 06/10/19 14:36 06/10/19 21:47 Triple Antibiotic Ointment TOPICAL 1 applic PRN PRN Administration Dry Skin Ondansetron HCl 4 mg 06/08/19 18:39 Zofran Inj IV PUSH Q6H PRN Nausea And Vomiting Vitamin B Complex 1 cap 06/09/19 09:00 06/11/19 09:17 Vitamin B Complex PO 1 cap DAILY LYLE Administration Vitamin D 1,000 unit 06/09/19 09:00 06/11/19 09:18 Vitamin D PO 1,000 unit DAILY LYLE Administration Radiology Results: ITS Impressions Catheter Placement CT 06/09/19 17:05 IMPRESSION: 1. Successful CT-guided right percent perisigmoid abscess drainage. 2. 4 mL mckinnon, opaque fluid was sent for aerobic and anaerobic cultures.
--- NOTE | 2019-06-11 09:35 | PM.PNGS ---
Progress Note: A&P Assessment and Plan (1) Diverticular disease of intestine with perforation and abscess: Code(s): K57.80 - Diverticulitis of intestine, part unspecified, with perforation and abscess without bleeding Status: Acute Assessment and Plan: Percutaneous abscess drain placed on 06/09/19. Continue to suction. Cultures pending. Blood cultures NGTD. ID consulted and appreciate recommendations. Will hold off on antibiotics unless she shows clinical deterioration or or signs of the abscess progressing clinically. Will ultimately require surgery, but still planning to do this electively if she continues to improve with percutaneous drainage of the abscess. Encouraged increased activity. Continue low-fiber diet. (2) Thrombocytopenia: Code(s): D69.6 - Thrombocytopenia, unspecified Status: Acute (3) Chronic anemia: Code(s): D64.9 - Anemia, unspecified Status: Acute (4) Chronic kidney disease, stage 4 (severe): Code(s): N18.4 - Chronic kidney disease, stage 4 (severe) Status: Chronic Assessment and Plan: Nephrology consulted. Obtaining a 24 hour urine. (5) Generalized weakness: Code(s): R53.1 - Weakness Status: Acute Assessment and Plan: Continue PT/OT (6) Hypertension: Qualifiers: Hypertension type: essential hypertension Qualified Code(s): I10 - Essential (primary) hypertension Code(s): I10 - Essential (primary) hypertension Status: Chronic (7) Unresponsive episode: Code(s): R41.89 - Other symptoms and signs involving cognitive functions and awareness Status: Acute (8) Edema: Qualifiers: Edema type: unspecified Qualified Code(s): R60.9 - Edema, unspecified Code(s): R60.9 - Edema, unspecified Status: Acute Additional Plan Pancreatic lesion noted on CT. Plan for further work-up once more stable. Discussed plan of care with Dr. Lerner. Subjective Subjective Date/Time Seen: 06/11/19 08:35 Patient reports: no new complaints Interval history: Patient seen and examined. Reports feeling tired today. Reports Santos catheter placement due to inability to obtain 24 hour urine. Was able to get up to the chair yesterday. Tolerating her diet without any nausea, vomiting, or bloating. Reports small bowel movement this morning and a few overnight. No other comlpaints today. Review of Systems Review of Systems: All systems reviewed & are unremarkable except as noted in HPI and below Exam Const: General: comfortable, no acute distress, alert and awake GI: Inspection: other (mild distention, unchanged) GI Palp: Yes Soft to palpation, No Tenderness to palpation present (GI), No Guarding due to palpation present (GI) and No Rebound tenderness present Auscultation: normal bowel sounds Other: RLQ percutaneous abscess drain with purulent mckinnon/pink drainage in bag today Urinary Catheter: Urinary Catheter: patent and draining and urine clear Neuro: General: patient oriented x3, moves all extremities and Unable to assess gait Extrem: General: edema bilateral (2+ pitting) Psych: Mental Status: mental status grossly normal Affect: normal affect Attitude: cooperative Thought process: Normal thought process present Objective Data Vital Signs Vital Signs: Vital Signs - 24 hr 06/10/19 14:00 06/10/19 21:45 06/10/19 22:37 Temperature 36.8 C 36.4 C Pulse Rate 87 80 83 Respiratory Rate 18 16 Blood Pressure 152/80 H 140/74 Pulse Oximetry 99 06/11/19 06:16 Temperature 36.1 C L Pulse Rate 74 Respiratory Rate 16 Blood Pressure 130/64 Pulse Oximetry 96 Intake/Output Intake/Output: Intake & Output 06/08/19 06/09/19 06/10/19 06/11/19 23:59 23:59 23:59 23:59 Intake Total 1532 800 300 Output Total 400 740 375 Balance 1132 60 -75 Meds/Results Medications: Active Medications Generic Name Dose Route Start Last Admin Trade Name Freq PRN Reason Stop Dose A
[2019-06-11] MEDS: EPOETIN ALFA 10,000 UNITS/ML VIAL 10000 UNITS SUB-Q (12:57)
--- NOTE | 2019-06-11 13:23 | PM.IMPN ---
Progress Note: A&P Assessment and Plan (1) URI (upper respiratory infection): Qualifiers: URI type: unspecified URI Qualified Code(s): J06.9 - Acute upper respiratory infection, unspecified Code(s): J06.9 - Acute upper respiratory infection, unspecified Status: Acute Assessment and Plan: Symptomatic treatment (2) Unresponsive episode: Code(s): R41.89 - Other symptoms and signs involving cognitive functions and awareness Status: Acute Assessment and Plan: C/w seizure with postictal state. Currently on Keppra 250mg q 12 h w/o recurrence. (3) Diverticular disease of intestine with perforation and abscess: Code(s): K57.80 - Diverticulitis of intestine, part unspecified, with perforation and abscess without bleeding Status: Acute Assessment and Plan: CT shows worsening Platelets 3/4, IR inserted drain 3/4 Draining serosanguinous fluid (4) Chronic anemia: Code(s): D64.9 - Anemia, unspecified Status: Acute Assessment and Plan: Continue with Epogen MWF as ordered. Known to have pancytopenia and had a bone marrow biopsy in 2014 that was unremarkable. (5) Right knee pain: Qualifiers: Chronicity: acute Qualified Code(s): M25.561 - Pain in right knee Code(s): M25.561 - Pain in right knee Status: Acute Assessment and Plan: Likely due to fall at facility PT/OT Monitor progress (6) Edema: Qualifiers: Edema type: unspecified Qualified Code(s): R60.9 - Edema, unspecified Code(s): R60.9 - Edema, unspecified Status: Acute Assessment and Plan: Continue with lamin wraps to bilateral lower extremities. (7) Generalized weakness: Code(s): R53.1 - Weakness Status: Acute Assessment and Plan: PT/OT (8) Chronic kidney disease, stage 4 (severe): Code(s): N18.4 - Chronic kidney disease, stage 4 (severe) Status: Chronic Assessment and Plan: Continue to monitor Avoid nephrotoxic drugs Renal dose meds (9) Hyponatremia: Code(s): E87.1 - Hypo-osmolality and hyponatremia Status: Acute Assessment and Plan: Chronic and relatively stable Urine Na 49 on 05/26/2019 (10) Hypertension: Qualifiers: Hypertension type: essential hypertension Qualified Code(s): I10 - Essential (primary) hypertension Code(s): I10 - Essential (primary) hypertension Status: Chronic Assessment and Plan: Hold meds and monitor Subjective Date/time seen: 06/11/19 13:23 Interval history: no abd pain, no back pain, no further seizure Review of Systems Review of Systems: All systems reviewed & are unremarkable except as noted in HPI and below Exam Narrative: Exam Narrative: HEENT: EOMI, PERRL, sclerae nonicteric, pharyngeal mucosa pink and intact NECK: No JVD, adenopathy, or thyromegaly CHEST: Clear to auscultation. Normal effort. HEART: NL S1/S2, regular, no murmur ABDOMEN: BS+, soft, nontender, no mass, no bruits EXTREMITIES: Trace leg edema NEUROLOGIC: CN intact and symmetric to inspection. MUSCULOSKELETAL: Tone and strength symmetric. PSYCH: Alert. Oriented to person, place, and time. Objective Data Vital Signs Vital Signs: Vital Signs - 24 hr 06/10/19 14:00 06/10/19 21:45 06/10/19 22:37 Temperature 98.3 F 97.6 F Pulse Rate 87 80 83 Respiratory Rate 18 16 Blood Pressure 152/80 H 140/74 Pulse Oximetry 99 06/11/19 06:16 06/11/19 08:00 Temperature 97.0 F L Pulse Rate 74 74 Respiratory Rate 16 16 Blood Pressure 130/64 Pulse Oximetry 96 96 Intake/Output Intake/Output: Intake & Output 06/08/19 06/09/19 06/10/19 06/11/19 23:59 23:59 23:59 23:59 Intake Total 1532 800 420 Output Total 400 740 375 Balance 1132 60 45 Meds/Results Medications: Active Medications Generic Name Dose Route Start Last Admin Trade Name Freq PRN Reason Stop Dose Admin Allopurinol
[2019-06-11 14:00] VITALS: BP 142/68; PULSE 81; RESP 16; TEMP 36.7; O2SAT 98
--- NOTE | 2019-06-11 14:59 | P.PNNP_ITS ---
Progress Note: A&P Assessment and Plan (1) Chronic kidney disease, stage 4 (severe): Code(s): N18.4 - Chronic kidney disease, stage 4 (severe) Status: Chronic Assessment and Plan: * relatively stable * baseline creatinine runs ~ 2.5 - 3.0mg/dl in the last year or so * due to hypertension and vascular disease * follow-up on 24hr urine collection results * continue supportive therapy (2) Diverticular disease of intestine with perforation and abscess: Code(s): K57.80 - Diverticulitis of intestine, part unspecified, with perforation and abscess without bleeding Status: Acute Assessment and Plan: * Surgery following * s/p percutaneous drain placement for abscess * advance diet as tolerated (3) Hypertension: Qualifiers: Hypertension type: essential hypertension Qualified Code(s): I10 - Essential (primary) hypertension Code(s): I10 - Essential (primary) hypertension Status: Chronic Assessment and Plan: * reasonable control at this time * follow trend of hemodynamics * BP medications adjustments as deemed necessary * would not be too aggressive given known CKD and acute illness/infection (4) Hyponatremia: Code(s): E87.1 - Hypo-osmolality and hyponatremia Status: Acute Assessment and Plan: * mainly due to renal dysfunction * relatively stable * follow trend (5) Chronic anemia: Code(s): D64.9 - Anemia, unspecified Status: Acute Assessment and Plan: * multifactorial etiology: - previous JINA - known CKD - acute illness/inflammation - blood loss? * on Epogen (gets as an outpatient as well) * follow trend of H/H (6) Generalized weakness: Code(s): R53.1 - Weakness Status: Acute Assessment and Plan: * due to acute illness and multiple hospitalizations * PT/OT as tolerated Will continue to follow. Subjective Date/time seen: 06/11/19 14:59 No acute distress voiced at this time; breen catheter placed for 24hr urine collection to better estimate creatinine clearance; still feels weak; no apparent distress voiced at this time. Exam Narrative: Exam Narrative: General: WD/WN male in NAD Heart: normal S1 and S2; no rub Lungs: clear to auscultation Abdomen: soft, + tenderness near drain; positive bowel sounds Extremities: no cyanosis or clubbing; trace edema Skin: warm and dry Objective Data Vital Signs Vital Signs: Vital Signs Temp Pulse Resp BP Pulse Ox 06/11/19 08:00 74 16 96 06/11/19 06:16 36.1 C L 74 16 130/64 96 06/10/19 22:37 36.4 C 83 16 140/74 06/10/19 21:45 80 Intake/Output Intake/Output: Intake & Output 06/08/19 06/09/19 06/10/19 06/11/19 23:59 23:59 23:59 23:59 Intake Total 1532 800 420 Output Total 400 740 375 Balance 1132 60 45 Meds/Results Medications: Active Medications Generic Name Dose Route Start Last Admin Trade Name Freq PRN Reason Stop Dose Admin Allopurinol 100 mg 06/08/19 21:00 06/11/19 09:16 Zyloprim PO 100 mg Q12HR LYLE Administration Carvedilol 25 mg 06/08/19 21:00 06/11/19 09:16 Coreg PO 25 mg Q12HR LYLE Administration Epoetin Nixon 10,000 units 06/11/19 09:00
--- NOTE | 2019-06-11 14:59 | PM.PNNEP ---
Progress Note: A&P Assessment and Plan (1) Chronic kidney disease, stage 4 (severe): Code(s): N18.4 - Chronic kidney disease, stage 4 (severe) Status: Chronic Assessment and Plan: relatively stable baseline creatinine runs ~ 2.5 - 3.0mg/dl in the last year or so due to hypertension and vascular disease follow-up on 24hr urine collection results continue supportive therapy (2) Diverticular disease of intestine with perforation and abscess: Code(s): K57.80 - Diverticulitis of intestine, part unspecified, with perforation and abscess without bleeding Status: Acute Assessment and Plan: Surgery following s/p percutaneous drain placement for abscess advance diet as tolerated (3) Hypertension: Qualifiers: Hypertension type: essential hypertension Qualified Code(s): I10 - Essential (primary) hypertension Code(s): I10 - Essential (primary) hypertension Status: Chronic Assessment and Plan: reasonable control at this time follow trend of hemodynamics BP medications adjustments as deemed necessary would not be too aggressive given known CKD and acute illness/infection (4) Hyponatremia: Code(s): E87.1 - Hypo-osmolality and hyponatremia Status: Acute Assessment and Plan: mainly due to renal dysfunction relatively stable follow trend (5) Chronic anemia: Code(s): D64.9 - Anemia, unspecified Status: Acute Assessment and Plan: multifactorial etiology: - previous JINA - known CKD - acute illness/inflammation - blood loss? on Epogen (gets as an outpatient as well) follow trend of H/H (6) Generalized weakness: Code(s): R53.1 - Weakness Status: Acute Assessment and Plan: due to acute illness and multiple hospitalizations PT/OT as tolerated Will continue to follow. Subjective Date/time seen: 06/11/19 14:59 No acute distress voiced at this time; breen catheter placed for 24hr urine collection to better estimate creatinine clearance; still feels weak; no apparent distress voiced at this time. Exam Narrative: Exam Narrative: General: WD/WN male in NAD Heart: normal S1 and S2; no rub Lungs: clear to auscultation Abdomen: soft, + tenderness near drain; positive bowel sounds Extremities: no cyanosis or clubbing; trace edema Skin: warm and dry Objective Data Vital Signs Vital Signs: Vital Signs Temp Pulse Resp BP Pulse Ox 06/11/19 08:00 74 16 96 06/11/19 06:16 36.1 C L 74 16 130/64 96 06/10/19 22:37 36.4 C 83 16 140/74 06/10/19 21:45 80 Intake/Output Intake/Output: Intake & Output 06/08/19 06/09/19 06/10/19 06/11/19 23:59 23:59 23:59 23:59 Intake Total 1532 800 420 Output Total 400 740 375 Balance 1132 60 45 Meds/Results Medications: Active Medications Generic Name Dose Route Start Last Admin Trade Name Freq PRN Reason Stop Dose Admin Allopurinol 100 mg 06/08/19 21:00 06/11/19 09:16 Zyloprim PO 100 mg Q12HR LYLE Administration Carvedilol 25 mg 06/08/19 21:00 06/11/19 09:16 Coreg PO 25 mg Q12HR LYLE Administration Epoetin Nixon 10,000 units 06/11/19 09:00 06/11/19 12:57 Epogen SUB-Q 10,000 units [id number] LYLE Administration Fluticasone Propionate 2 spray 06/08/19 21:00 06/10/19 21:46 Flonase 0.05% Nasal [place] NASAL 2 spray HS LYLE Administration Guaifenesin/Dextromethorphan 10 ml 06/10/19 13:18 06/11/19 09:21 Robitussin-Dm Syrup PO 10 ml Q4H PRN Administration Cough Levetiracetam 250 mg 06/08/19 21:00 06/11/19 09:17 Keppra Tablet PO 250 mg Q12HR LYLE Administration Montelukast Sodium 10 mg 06/09/19 09:00 06/11/19 09:17 Singulair PO 10 mg DAILY LYLE Administration Neomycin/Polymyxin/Bacitracin 1 applic 06/10/19 14:36 06/10/19 21:47 Triple Antibiotic Ointment TOPICAL 1 applic PRN PRN Administration
--- NOTE | 2019-06-11 16:21 | WPDINFPN2 ---
Progress Note: A&P Assessment and Plan (1) Diverticular disease of intestine with perforation and abscess: Code(s): K57.80 - Diverticulitis of intestine, part unspecified, with perforation and abscess without bleeding Status: Acute Assessment and Plan: 1. Diverticular abscess, drained percutaneously POD #2. Culture no results yet, the specimen was not plated promptly which will affect sensitivity of the culture. 2. Multiple allergies 3. Seizure, not apparently due to #1 4. Protein calorie malnutrition REC Not in need of antibiotic resumption. F/U final cuture. Subjective Date/time seen: 06/11/19 16:21 Interval history: no new complaints Exam Narrative: Exam Narrative: afebrile Const: General: no acute distress GI: Inspection: non-distended GI Palp: Yes Soft to palpation, No Tenderness to palpation present (GI) and No Guarding due to palpation present (GI) Percussion: Yes normal to percussion Other: drain thin brown no sediment Objective Data Vital Signs Vital Signs: Vital Signs - 24 hr 06/10/19 21:45 06/10/19 22:37 06/11/19 06:16 Temperature 36.4 C 36.1 C L Pulse Rate 80 83 74 Respiratory Rate 16 16 Blood Pressure 140/74 130/64 Pulse Oximetry 96 06/11/19 08:00 06/11/19 14:00 Temperature 36.7 C Pulse Rate 74 81 Respiratory Rate 16 16 Blood Pressure 142/68 H Pulse Oximetry 96 98 Intake/Output Intake/Output: Intake & Output 06/08/19 06/09/19 06/10/19 06/11/19 23:59 23:59 23:59 23:59 Intake Total 1532 800 520 Output Total 400 740 375 Balance 1132 60 145 Meds/Results Medications: Active Medications Generic Name Dose Route Start Last Admin Trade Name Freq PRN Reason Stop Dose Admin Allopurinol 100 mg 06/08/19 21:00 06/11/19 09:16 Zyloprim PO 100 mg Q12HR LYLE Administration Carvedilol 25 mg 06/08/19 21:00 06/11/19 09:16 Coreg PO 25 mg Q12HR LYLE Administration Epoetin Nixon 10,000 units 06/11/19 09:00 06/11/19 12:57 Epogen SUB-Q 10,000 units [id number] LYLE Administration Fluticasone Propionate 2 spray 06/08/19 21:00 06/10/19 21:46 Flonase 0.05% Nasal [place] NASAL 2 spray HS LYLE Administration Guaifenesin/Dextromethorphan 10 ml 06/10/19 13:18 06/11/19 09:21 Robitussin-Dm Syrup PO 10 ml Q4H PRN Administration Cough Levetiracetam 250 mg 06/08/19 21:00 06/11/19 09:17 Keppra Tablet PO 250 mg Q12HR LYLE Administration Montelukast Sodium 10 mg 06/09/19 09:00 06/11/19 09:17 Singulair PO 10 mg DAILY LYLE Administration Neomycin/Polymyxin/Bacitracin 1 applic 06/10/19 14:36 06/10/19 21:47 Triple Antibiotic Ointment TOPICAL 1 applic PRN PRN Administration Dry Skin Ondansetron HCl 4 mg 06/08/19 18:39 Zofran Inj IV PUSH Q6H PRN Nausea And Vomiting Vitamin B Complex 1 cap 06/09/19 09:00 06/11/19 09:17 Vitamin B Complex PO 1 cap DAILY LYLE Administration Vitamin D 1,000 unit 06/09/19 09:00 06/11/19 09:18 Vitamin D PO 1,000 unit DAILY LYLE Administration Radiology Results: ITS Impressions Catheter Placement CT 06/09/19 17:05 IMPRESSION: 1. Successful CT-guided right percent perisigmoid abscess drainage. 2. 4 mL mckinnon, opaque fluid was sent for aerobic and anaerobic cultures.
[2019-06-11 21:21] VITALS: PULSE 80
[2019-06-11] MEDS: FLUTICASONE PROPIONATE 0.05% NA SPR 16 GM BTL (*BKC) 2 SPRAY NASAL (21:22)
[2019-06-11 22:00] VITALS: BP 153/79; PULSE 97; RESP 22; TEMP 37.6; O2SAT 99
[2019-06-12] VITALS (9 sets, daily range): BP systolic 140–150; BP diastolic 73–99; PULSE 79–98; RESP 18–24; TEMP 36.3–37.3; O2SAT 93–97
[2019-06-12] MEDS: GUAIFENESIN/DEXTROMETHORPHAN 10 ML UDC PO ×2 (04:14→09:02)
[2019-06-12] MEDS: LEVALBUTEROL NEB 1.25 MG/3 ML 0.63 MG INHALATION (05:10)
[2019-06-12 05:34] LABS: Hematocrit 22.7 % (37.0-47.0); Hemoglobin 7.1 g/dL (12.0-15.0); Immature Platelet Fraction Pct 3.9 % (0.9-11.2); Mean Corpuscular HGB Conc 31.3 g/dl (32-36); Mean Corpuscular Hemoglobin 29.7 pg (26-34); Mean Platelet Volume 13.8 fl (7.4-10.4); Platelet Count Result 28 k/mm3 (150-375); Red Blood Count 2.39 M/mm3 (4.2-5.4); Red Cell Distribution Width 17.3 % (11.5-14.5)
[2019-06-12 05:53] LABS: Blood Urea Nitrogen 32 mg/dL (7-17); CRP 2.1 mg/dL (<1.0); Calcium 7.9 mg/dL (8.4-10.2); Carbon Dioxide 21 mmol/L (22-30); Chloride 102 mmol/L (98-107); Estimated CRCL calculation 17 ml/min; Estimated Glomerular Filt Rate 21; Glucose 90 mg/dL (65-105); Potassium 3.6 mmol/L (3.4-5.0); Sodium 128 mmol/L (137-145)
--- NOTE | 2019-06-12 07:41 | WPDGIPROGNO ---
Progress Note: A&P Additional Plan Patient is somnolent this morning. Comfortable at rest has a slight cough this morning. She denies abdominal pain. Physical exam reveals her to be afebrile. She is anicteric. Lungs are clear. Heart without murmur. Abdomen soft and nontender. Percutaneous drain in right lower quadrant present. Impression 1. Abdominal abscess. Related to recent diverticulitis. Now status post percutaneous drainage. Surgery following. 2. Chronic kidney disease. [place] stable by renal service. 3. Pancytopenia. WBC now 3.0. Chronic thrombocytopenia followed by [facility] Hematology. 4. History of gastric ulcer. Five. Urinary tract infection. Now on antibiotics for this. Plan at the present time is to continue supportive care. Hopefully she can be stable enough for a ventral sigmoidectomy. Subjective Date/time seen: 06/12/19 07:41 Objective Data Vital Signs Vital Signs: Vital Signs - 24 hr 06/11/19 08:00 06/11/19 14:00 06/11/19 21:21 Temperature 36.7 C Pulse Rate 74 81 80 Respiratory Rate 16 16 Blood Pressure 142/68 H Pulse Oximetry 96 98 06/11/19 22:00 06/12/19 05:10 06/12/19 05:51 Temperature 37.6 C 37.3 C Pulse Rate 97 79 89 Respiratory Rate 22 H 18 24 H Blood Pressure 153/79 H 140/73 Pulse Oximetry 99 97 Intake/Output Intake/Output: Intake & Output 06/09/19 06/10/19 06/11/19 06/12/19 23:59 23:59 23:59 23:59 Intake Total 6423 321 3583 50 Output Total 400 740 850 310 Balance 1132 60 240 -260 Meds/Results Medications: Active Medications Generic Name Dose Route Start Last Admin Trade Name Freq PRN Reason Stop Dose Admin Allopurinol 100 mg 06/08/19 21:00 06/11/19 21:21 Zyloprim PO 100 mg Q12HR LYLE Administration Carvedilol 25 mg 06/08/19 21:00 06/11/19 21:21 Coreg PO 25 mg Q12HR LYLE Administration Epoetin Nixon 10,000 units 06/11/19 09:00 06/11/19 12:57 Epogen SUB-Q 10,000 units [email or web address] LYLE Administration Fluticasone Propionate 2 spray 06/08/19 21:00 06/11/19 21:22 Flonase 0.05% Nasal [place] NASAL 2 spray HS LYLE Administration Guaifenesin/Dextromethorphan 10 ml 06/10/19 13:18 06/12/19 04:14 Robitussin-Dm Syrup PO 10 ml Q4H PRN Administration Cough Levetiracetam 250 mg 06/08/19 21:00 06/11/19 21:22 Keppra Tablet PO 250 mg Q12HR LYLE Administration Montelukast Sodium 10 mg 06/09/19 09:00 06/11/19 09:17 Singulair PO 10 mg DAILY LYLE Administration Neomycin/Polymyxin/Bacitracin 1 applic 06/10/19 14:36 06/10/19 21:47 Triple Antibiotic Ointment TOPICAL 1 applic PRN PRN Administration Dry Skin Ondansetron HCl 4 mg 06/08/19 18:39 Zofran Inj IV PUSH Q6H PRN Nausea And Vomiting Vitamin B Complex 1 cap 06/09/19 09:00 06/11/19 09:17 Vitamin B Complex PO 1 cap DAILY LYLE Administration Vitamin D 1,000 unit 06/09/19 09:00 06/11/19 09:18 Vitamin D PO 1,000 unit DAILY LYLE Administration Radiology Results: ITS Impressions Catheter Placement CT 06/09/19 17:05 IMPRESSION: 1. Successful CT-guided right percent perisigmoid abscess drainage. 2. 4 mL mckinnon, opaque fluid was sent for aerobic and anaerobic cultures. Labs Labs: Laboratory Results - last 24 hr 06/12/19 06/12/19 04:51 04:51 WBC 3.0 L RBC 2.39 L Hgb 7.1 L Hct 22.7 L MCV 95.0 MCH 29.7 MCHC 31.3 L RDW 17.3 H Plt Count 28 L D MPV 13.8 H % Immature Plt Fraction 3.9 Sodium 128 L Potassium 3.6 Chloride 102 Carbon Dioxide 21 L BUN 32 H Creatinine 2.30 H Estim Creat Clear Calc 17 Estimated GFR 21 L Glucose 90 Calcium 7.9 L C-Reactive Protein 2.1 H
--- NOTE | 2019-06-12 08:09 | P.PNNP_ITS ---
Progress Note: A&P Assessment and Plan (1) Chronic kidney disease, stage 4 (severe): Code(s): N18.4 - Chronic kidney disease, stage 4 (severe) Status: Chronic Assessment and Plan: * relatively stable * baseline creatinine runs ~ 2.5 - 3.0mg/dl in the last year or so * due to hypertension and vascular disease * Her creatinine has actually improved. Today it is 2.3. * follow-up on 24hr urine collection results. Urine collection was finished. * continue supportive therapy (2) Diverticular disease of intestine with perforation and abscess: Code(s): K57.80 - Diverticulitis of intestine, part unspecified, with perforation and abscess without bleeding Status: Acute Assessment and Plan: * Surgery following * Afebrile. For a white count is not high. * s/p percutaneous drain placement for abscess * advance diet as tolerated (3) Hypertension: Qualifiers: Hypertension type: essential hypertension Qualified Code(s): I10 - Essential (primary) hypertension Code(s): I10 - Essential (primary) hypertension Status: Chronic Assessment and Plan: * Systolic running 130-150. * follow trend of hemodynamics * BP medications adjustments as deemed necessary * would not be too aggressive given known CKD and acute illness/infection (4) Hyponatremia: Code(s): E87.1 - Hypo-osmolality and hyponatremia Status: Acute Assessment and Plan: * mainly due to renal dysfunction * Seems to be trending downwards. * Check tomorrow. If too low will fluid restrict. But she is really not taking very much in any way. (5) Chronic anemia: Code(s): D64.9 - Anemia, unspecified Status: Acute Assessment and Plan: * multifactorial etiology: - previous JINA - known CKD - acute illness/inflammation - blood loss? * on Epogen (gets as an outpatient as well) * Hemoglobin is in the low sevens. (6) Generalized weakness: Code(s): R53.1 - Weakness Status: Acute Assessment and Plan: * due to acute illness and multiple hospitalizations * PT/OT as tolerated Will continue to follow. Subjective Date/time seen: 06/12/19 08:09 Interval history: Patient is alert. She is tired. He did not sleep well. Not eating very well. Review of Systems Cardiovascular: Cardiovascular: Reports no additional cardiovascular complaints Respiratory: Respiratory: Reports no additional respiratory complaints Gastrointestinal: Gastrointestinal: Reports no additional gastrointestinal complaints Genitourinary: Genitourinary: Reports no additional female genitourinary complaints Exam Narrative: Exam Narrative: General: WD/WN male in NAD Heart: normal S1 and S2; no rub Lungs: clear bilaterally Abdomen: soft, + tenderness near drain; positive bowel sounds Extremities: no cyanosis or clubbing; trace edema Skin: No rash Objective Data Vital Signs Vital Signs: Vital Signs - 24 hr 06/11/19 14:00 06/11/19 21:21 06/11/19 22:00 Temperature 36.7 C 37.6 C Pulse Rate 81 80 97 Respiratory Rate 16 22 H Blood Pressure 142/68 H 153/79 H Pulse Oximetry 98 99 06/12/19 05:10 06/12/19 05:51 Temperature 37.3 C Pulse Rate 79 89 Respiratory Rate 18 24 H Blood Pressure 140/73 Pulse Ox
--- NOTE | 2019-06-12 08:09 | PM.PNNEP ---
Progress Note: A&P Assessment and Plan (1) Chronic kidney disease, stage 4 (severe): Code(s): N18.4 - Chronic kidney disease, stage 4 (severe) Status: Chronic Assessment and Plan: relatively stable baseline creatinine runs ~ 2.5 - 3.0mg/dl in the last year or so due to hypertension and vascular disease Her creatinine has actually improved. Today it is 2.3. follow-up on 24hr urine collection results. Urine collection was finished. continue supportive therapy (2) Diverticular disease of intestine with perforation and abscess: Code(s): K57.80 - Diverticulitis of intestine, part unspecified, with perforation and abscess without bleeding Status: Acute Assessment and Plan: Surgery following Afebrile. For a white count is not high. s/p percutaneous drain placement for abscess advance diet as tolerated (3) Hypertension: Qualifiers: Hypertension type: essential hypertension Qualified Code(s): I10 - Essential (primary) hypertension Code(s): I10 - Essential (primary) hypertension Status: Chronic Assessment and Plan: Systolic running 130-150. follow trend of hemodynamics BP medications adjustments as deemed necessary would not be too aggressive given known CKD and acute illness/infection (4) Hyponatremia: Code(s): E87.1 - Hypo-osmolality and hyponatremia Status: Acute Assessment and Plan: mainly due to renal dysfunction Seems to be trending downwards. Check tomorrow. If too low will fluid restrict. But she is really not taking very much in any way. (5) Chronic anemia: Code(s): D64.9 - Anemia, unspecified Status: Acute Assessment and Plan: multifactorial etiology: - previous JINA - known CKD - acute illness/inflammation - blood loss? on Epogen (gets as an outpatient as well) Hemoglobin is in the low sevens. (6) Generalized weakness: Code(s): R53.1 - Weakness Status: Acute Assessment and Plan: due to acute illness and multiple hospitalizations PT/OT as tolerated Will continue to follow. Subjective Date/time seen: 06/12/19 08:09 Interval history: Patient is alert. She is tired. He did not sleep well. Not eating very well. Review of Systems Cardiovascular: Cardiovascular: Reports no additional cardiovascular complaints Respiratory: Respiratory: Reports no additional respiratory complaints Gastrointestinal: Gastrointestinal: Reports no additional gastrointestinal complaints Genitourinary: Genitourinary: Reports no additional female genitourinary complaints Exam Narrative: Exam Narrative: General: WD/WN male in NAD Heart: normal S1 and S2; no rub Lungs: clear bilaterally Abdomen: soft, + tenderness near drain; positive bowel sounds Extremities: no cyanosis or clubbing; trace edema Skin: No rash Objective Data Vital Signs Vital Signs: Vital Signs - 24 hr 06/11/19 14:00 06/11/19 21:21 06/11/19 22:00 Temperature 36.7 C 37.6 C Pulse Rate 81 80 97 Respiratory Rate 16 22 H Blood Pressure 142/68 H 153/79 H Pulse Oximetry 98 99 06/12/19 05:10 06/12/19 05:51 Temperature 37.3 C Pulse Rate 79 89 Respiratory Rate 18 24 H Blood Pressure 140/73 Pulse Oximetry 97 Intake/Output Intake/Output: Intake & Output 06/09/19 06/10/19 06/11/19 06/12/19 23:59 23:59 23:59 23:59 Intake Total 5392 151 0451 50 Output Total 400 740 850 310 Balance 1132 60 240 -260 Meds/Results Medications: Active Medications Generic Name Dose Route Start Last Admin Trade Name Freq PRN Reason Stop Dose Admin Allopurinol 100 mg 06/08/19 21:00 06/11/19 21:21 Zyloprim PO 100 mg Q12HR [facility] Administration Carvedilol 25 mg 06/08/19 21:00 06/11/19 21:21 Coreg PO 25 mg Q12HR [facility] Administration Epoetin Nixon 10,000 units 06/11/19 09:00 06/11/19 12:57 Epogen SUB-Q 10,000 units MoWeFr@0900 [facility] Adm
[2019-06-12] MEDS: allopurinoL 100 MG TABLET PO ×2 (09:02→20:42)
[2019-06-12] MEDS: CHOLECALCIFEROL 1,000 UNIT TABLET 1000 UNITS PO (09:02)
[2019-06-12] MEDS: MONTELUKAST SODIUM 10 MG TABLET PO (09:02)
[2019-06-12] MEDS: levETIRAcetam 250 MG TABLET PO ×2 (09:02→20:42)
[2019-06-12] MEDS: VITAMIN B COMPLEX CAPSULE 1 CAP PO (09:03)
[2019-06-12] MEDS: carvediloL 25 MG TABLET PO ×2 (09:03→20:42)
--- NOTE | 2019-06-12 13:23 | P.PNIM_ITS ---
Progress Note: A&P Assessment and Plan (1) Dyspnea: Qualifiers: Dyspnea type: shortness of breath Qualified Code(s): R06.02 - Shortness of breath Code(s): R06.00 - Dyspnea, unspecified Status: Acute Assessment and Plan: * Wells score 7.5 = high risk * Venous dopplers, NM VQ lung scan, CXR * D/w patient and daughters at bedside (2) URI (upper respiratory infection): Qualifiers: URI type: unspecified URI Qualified Code(s): J06.9 - Acute upper respiratory infection, unspecified Code(s): J06.9 - Acute upper respiratory infection, unspecified Status: Acute Assessment and Plan: * Symptomatic treatment (3) Unresponsive episode: Code(s): R41.89 - Other symptoms and signs involving cognitive functions and awareness Status: Acute Assessment and Plan: * C/w seizure with postictal state. * Currently on Keppra 250mg q 12 h w/o recurrence. (4) Diverticular disease of intestine with perforation and abscess: Code(s): K57.80 - Diverticulitis of intestine, part unspecified, with perforation and abscess without bleeding Status: Acute Assessment and Plan: * CT shows worsening * Platelets 3/4, IR inserted drain 3/4 * Draining serosanguinous fluid (5) Chronic anemia: Code(s): D64.9 - Anemia, unspecified Status: Acute Assessment and Plan: * Continue with Epogen MWF as ordered. * Known to have pancytopenia and had a bone marrow biopsy in 2014 that was unremarkable. (6) Right knee pain: Qualifiers: Chronicity: acute Qualified Code(s): M25.561 - Pain in right knee Code(s): M25.561 - Pain in right knee Status: Acute Assessment and Plan: * Likely due to fall at facility * PT/OT * Monitor progress (7) Edema: Qualifiers: Edema type: unspecified Qualified Code(s): R60.9 - Edema, unspecified Code(s): R60.9 - Edema, unspecified Status: Acute Assessment and Plan: * Continue with lamin wraps to bilateral lower extremities. (8) Generalized weakness: Code(s): R53.1 - Weakness Status: Acute Assessment and Plan: * PT/OT (9) Chronic kidney disease, stage 4 (severe): Code(s): N18.4 - Chronic kidney disease, stage 4 (severe) Status: Chronic Assessment and Plan: * Continue to monitor * Avoid nephrotoxic drugs * Renal dose meds (10) Hyponatremia: Code(s): E87.1 - Hypo-osmolality and hyponatremia Status: Acute Assessment and Plan: * Chronic and relatively stable * Urine Na 49 on 05/26/2019 (11) Hypertension: Qualifiers: Hypertension type: essential hypertension Qualified Code(s): I10 - Essential (primary) hypertension Code(s): I10 - Essential (primary) hypertension Status: Chronic Assessment and Plan: * Hold meds and monitor Subjective Date/time seen: 06/12/19 13:23 Interval history: Acutely sob about 8 AM. Neb treatment helpled a little. Still sob at rest. No chest pain. No increased leg swelling. Appetite fair to poor. Extremely tired. No GI/ c/o. No bleeding. Review of Systems Review of Systems: All systems reviewed & are unremarkable except as noted in HPI and below Exam Narrative: Exam Narrative: HEENT: EOMI, PERRL, sclerae nonicteric, pharyngeal mucosa pink and intact NECK: No JVD, adenopathy, or thyromegaly CHEST: Clear to auscultation. Normal effort. HEART: NL S1/S2, regular
--- NOTE | 2019-06-12 13:23 | PM.IMPN ---
Progress Note: A&P Assessment and Plan (1) Dyspnea: Qualifiers: Dyspnea type: shortness of breath Qualified Code(s): R06.02 - Shortness of breath Code(s): R06.00 - Dyspnea, unspecified Status: Acute Assessment and Plan: Wells score 7.5 = high risk Venous dopplers, NM VQ lung scan, CXR D/w patient and daughters at bedside (2) URI (upper respiratory infection): Qualifiers: URI type: unspecified URI Qualified Code(s): J06.9 - Acute upper respiratory infection, unspecified Code(s): J06.9 - Acute upper respiratory infection, unspecified Status: Acute Assessment and Plan: Symptomatic treatment (3) Unresponsive episode: Code(s): R41.89 - Other symptoms and signs involving cognitive functions and awareness Status: Acute Assessment and Plan: C/w seizure with postictal state. Currently on Keppra 250mg q 12 h w/o recurrence. (4) Diverticular disease of intestine with perforation and abscess: Code(s): K57.80 - Diverticulitis of intestine, part unspecified, with perforation and abscess without bleeding Status: Acute Assessment and Plan: CT shows worsening Platelets 3/4, IR inserted drain 3/4 Draining serosanguinous fluid (5) Chronic anemia: Code(s): D64.9 - Anemia, unspecified Status: Acute Assessment and Plan: Continue with Epogen MWF as ordered. Known to have pancytopenia and had a bone marrow biopsy in 2014 that was unremarkable. (6) Right knee pain: Qualifiers: Chronicity: acute Qualified Code(s): M25.561 - Pain in right knee Code(s): M25.561 - Pain in right knee Status: Acute Assessment and Plan: Likely due to fall at facility PT/OT Monitor progress (7) Edema: Qualifiers: Edema type: unspecified Qualified Code(s): R60.9 - Edema, unspecified Code(s): R60.9 - Edema, unspecified Status: Acute Assessment and Plan: Continue with lamin wraps to bilateral lower extremities. (8) Generalized weakness: Code(s): R53.1 - Weakness Status: Acute Assessment and Plan: PT/OT (9) Chronic kidney disease, stage 4 (severe): Code(s): N18.4 - Chronic kidney disease, stage 4 (severe) Status: Chronic Assessment and Plan: Continue to monitor Avoid nephrotoxic drugs Renal dose meds (10) Hyponatremia: Code(s): E87.1 - Hypo-osmolality and hyponatremia Status: Acute Assessment and Plan: Chronic and relatively stable Urine Na 49 on 05/26/2019 (11) Hypertension: Qualifiers: Hypertension type: essential hypertension Qualified Code(s): I10 - Essential (primary) hypertension Code(s): I10 - Essential (primary) hypertension Status: Chronic Assessment and Plan: Hold meds and monitor Subjective Date/time seen: 06/12/19 13:23 Interval history: Acutely sob about 8 AM. Neb treatment helpled a little. Still sob at rest. No chest pain. No increased leg swelling. Appetite fair to poor. Extremely tired. No GI/ c/o. No bleeding. Review of Systems Review of Systems: All systems reviewed & are unremarkable except as noted in HPI and below Exam Narrative: Exam Narrative: HEENT: EOMI, PERRL, sclerae nonicteric, pharyngeal mucosa pink and intact NECK: No JVD, adenopathy, or thyromegaly CHEST: Clear to auscultation. Normal effort. HEART: NL S1/S2, regular, 3/6 PAYAL ABDOMEN: BS+, soft, nontender, no mass, no bruits EXTREMITIES: Trace leg edema NEUROLOGIC: CN intact and symmetric to inspection. MUSCULOSKELETAL: Tone and strength symmetric. PSYCH: Alert. Oriented to person, place, and time. Objective Data Vital Signs Vital Signs: Vital Signs - 24 hr 06/11/19 14:00 06/11/19 21:21 06/11/19 22:00 Temperature 98.1 F 99.6 F Pulse Rate 81 80 97 Respiratory Rate 16 22 H Blood Pressure 142/68 H 153/79 H Pulse Oximetry 98 99 06/12/19
[2019-06-12] MEDS: ALBUTEROL SULFATE NEB 2.5 MG/0.5 ML INH INHALATION ×2 (13:50→19:04)
--- NOTE | 2019-06-12 14:12 | PCOTNOTE ---
The patient treatment was not able to be completed on 06/12/2019 due to Pt being in x ray at time of therapist arrival. Will plan to continue treatment per plan of care.
--- NOTE | 2019-06-12 14:22 | PM.PNGS ---
Progress Note: A&P Assessment and Plan (1) Diverticular disease of intestine with perforation and abscess: Code(s): K57.80 - Diverticulitis of intestine, part unspecified, with perforation and abscess without bleeding Status: Acute Assessment and Plan: abscess seems to be well drained. Patient still very weak. She seems to be eating small amounts not really much of an appetite. Acute infection however seems to be well controlled and improving. (2) Thrombocytopenia: Code(s): D69.6 - Thrombocytopenia, unspecified Status: Acute Assessment and Plan: Platelet count dropped today to 28,000. Monitor. (3) Neutropenia: Code(s): D70.9 - Neutropenia, unspecified Status: Acute Assessment and Plan: White blood cell count down to 3000 today. Not sure of this etiology. Continue to monitor. (4) Chronic kidney disease, stage 4 (severe): Code(s): N18.4 - Chronic kidney disease, stage 4 (severe) Status: Chronic (5) Generalized weakness: Code(s): R53.1 - Weakness Status: Acute Subjective Subjective Date/Time Seen: 06/12/19 14:22 Patient reports: no new complaints and afebrile Review of Systems Review of Systems: All systems reviewed & are unremarkable except as noted in HPI and below Constitutional: Constitutional: Denies chills, Reports fatigue, Denies fever(s), Denies headache(s), Reports lethargy, Reports malaise and Reports weakness ENT: Denies headache(s) Cardiovascular: Cardiovascular: Denies chest pain and Denies dyspnea Respiratory: Respiratory: Denies cough and Denies dyspnea Gastrointestinal: Gastrointestinal: Reports as per HPI Neurologic: Denies confusion and Denies headache(s) Psychiatric: Psychiatric: Denies confusion Exam Const: General: comfortable and tired appearing GI: Inspection: incision ( Purulent fluid in catheter bag, minimal output last 2 days.) GI Palp: Yes Soft to palpation and Yes Tenderness to palpation present (GI) ( Pigtail drain site) Auscultation: normal bowel sounds Objective Data Vital Signs Vital Signs: Vital Signs - 24 hr 06/11/19 21:21 06/11/19 22:00 06/12/19 05:10 Temperature 37.6 C Pulse Rate 80 97 79 Respiratory Rate 22 H 18 Blood Pressure 153/79 H Pulse Oximetry 99 06/12/19 05:51 06/12/19 08:00 06/12/19 13:52 Temperature 37.3 C Pulse Rate 89 89 94 Respiratory Rate 24 H 24 H 18 Blood Pressure 140/73 Pulse Oximetry 97 97 06/12/19 14:00 Temperature Pulse Rate 92 Respiratory Rate 18 Blood Pressure Pulse Oximetry Intake/Output Intake/Output: Intake & Output 06/09/19 06/10/19 06/11/19 06/12/19 23:59 23:59 23:59 23:59 Intake Total 5996 375 5375 200 Output Total 400 740 850 310 Balance 1132 60 240 -110 Meds/Results Medications: Active Medications Generic Name Dose Route Start Last Admin Trade Name Freq PRN Reason Stop Dose Admin Albuterol 2.5 mg 06/12/19 14:05 Albuterol Sulf Neb 2.5mg/0.5ml INHALATION Q6H [facility] Allopurinol 100 mg 06/08/19 21:00 06/12/19 09:02 Zyloprim PO 100 mg Q12HR [facility] Administration Carvedilol 25 mg 06/08/19 21:00 06/12/19 09:03 Coreg PO 25 mg Q12HR [facility] Administration Epoetin Nixon 10,000 units 06/11/19 09:00 06/11/19 12:57 Epogen SUB-Q 10,000 units MoWeFr@0900 [facility] Administration Fluticasone Propionate 2 spray 06/08/19 21:00 06/11/19 21:22 Flonase 0.05% Nasal [place] NASAL 2 spray HS [facility] Administration Guaifenesin/Dextromethorphan 10 ml 06/10/19 13:18 06/12/19 09:02 Robitussin-Dm Syrup PO 10 ml Q4H PRN Administration Cough Levetiracetam 250 mg 06/08/19 21:00 06/12/19 09:02 Keppra Tablet PO 250 mg Q12HR [facility] Administration Montelukast Sodium 10 mg 06/09/19 09:00 06/12/19 09:02 Singulair PO 10 mg DAILY [facility] Administration Neomycin/Polymyxin/Bacitracin 1 applic 06/10/19 14:36 06/10/19 21:47 Triple Antibiotic Ointment T
[2019-06-12] MEDS: POTASSIUM CHLORIDE 20 MEQ TABLET 40 MEQ PO (16:06)
[2019-06-12] MEDS: FUROSEMIDE INJ 40 MG/4 ML VIAL IV PUSH (16:07)
[2019-06-12] MEDS: FLUTICASONE PROPIONATE 0.05% NA SPR 16 GM BTL (*BKC) 2 SPRAY NASAL (20:42)
[2019-06-13] VITALS (20 sets, daily range): BP systolic 121–151; BP diastolic 60–90; PULSE 81–103; RESP 16–24; TEMP 36.4–36.9; O2SAT 92–97
[2019-06-13] MEDS: ALBUTEROL SULFATE NEB 2.5 MG/0.5 ML INH INHALATION ×4 (01:00→20:06)
--- NOTE | 2019-06-13 03:23 | PC.NURSE ---
Just called by lab regarding urine creatinine that was just turned in 06/12/2019 at 0600. lab notified yesterday that specimen was called saying they had to throw it out talking about having a chart label on the container. Asked if we could remove it we turned it in prior morning. Stated we have to reject.
--- NOTE | 2019-06-13 04:45 | PC.NURSE ---
Daylight Savings Time For Daylight Savings Time Ending in the Fall - Clocks are moved back. For Daylight Savings Time Beginning in the Spring - Clocks are moved ahead. For [facility], the time of change occurs at 0200 hrs. Time is taken from the room service food server. This entry on the patient's chart recognizes the change in time reflected during documentation. Example: 2 entries for vital signs may be charted for 0200 hrs.
[2019-06-13 05:43] LABS: Hematocrit 24.2 % (37.0-47.0); Hemoglobin 7.6 g/dL (12.0-15.0); Immature Platelet Fraction Pct 3.2 % (0.9-11.2); Mean Corpuscular HGB Conc 31.4 g/dl (32-36); Mean Corpuscular Hemoglobin 29.6 pg (26-34); Mean Corpuscular Volume 94.2 fl (80-100); Red Blood Count 2.57 M/mm3 (4.2-5.4); Red Cell Distribution Width 17.3 % (11.5-14.5); White Blood Count 2.8 K/mm3 (4.5-10.0)
[2019-06-13 05:52] LABS: Basophils Percent Auto 0.4 % (0.2-1.2); Eosinophils Percent Auto 0.4 % (0-4.4); Hematocrit 24.2 % (37.0-47.0); Hemoglobin 7.6 g/dL (12.0-15.0); Immature Granulocyte Absolute 0.01 K/mm3 (0.00-0.031); Immature Granulocyte Percent A 0.4 % (0-0.5); Immature Platelet Fraction Pct 3.8 % (0.9-11.2); Lymphocytes Absolute Auto 0.54 K/mm3 (0.9-3.2); Lymphocytes Percent Auto 19.5 % (18.3-44.2); Mean Corpuscular HGB Conc 31.4 g/dl (32-36); Mean Corpuscular Hemoglobin 29.6 pg (26-34); Mean Corpuscular Volume 94.2 fl (80-100); Monocytes Absolute Auto 0.3 K/mm3 (0.1-0.6); Monocytes Percent Auto 10.5 % (2.6-8.5); Neutrophils Absolute Auto 1.9 K/mm3 (1.3-6.7); Neutrophils Percent Auto 68.8 % (45.5-73.1); Red Blood Count 2.57 M/mm3 (4.2-5.4); Red Cell Distribution Width 17.5 % (11.5-14.5); White Blood Count 2.8 K/mm3 (4.5-10.0)
[2019-06-13 05:56] LABS: Potassium 4.4 mmol/L (3.4-5.0)
[2019-06-13 06:06] LABS: Blood Urea Nitrogen 31 mg/dL (7-17); CRP 2.1 mg/dL (<1.0); Calcium 8.1 mg/dL (8.4-10.2); Carbon Dioxide 21 mmol/L (22-30); Chloride 101 mmol/L (98-107); Estimated CRCL calculation 19 ml/min; Estimated Glomerular Filt Rate 23; Glucose 85 mg/dL (65-105); Phosphorus 3.7 mg/dL (2.5-4.5); Sodium 127 mmol/L (137-145)
[2019-06-13 06:52] LABS: Platelet Count Result 13 k/mm3 (150-375)
[2019-06-13 06:53] LABS: Platelet Count Result 13 k/mm3 (150-375)
[2019-06-13 06:56] LABS: Platelet Estimate Adequate (Adequate); Poikilocytosis 1+ (NORMAL); Target Cells 1+ (NORMAL)
--- NOTE | 2019-06-13 08:02 | P.PNNP_ITS ---
Progress Note: A&P Assessment and Plan (1) Chronic kidney disease, stage 4 (severe): Code(s): N18.4 - Chronic kidney disease, stage 4 (severe) Status: Chronic Assessment and Plan: * relatively stable * baseline creatinine runs ~ 2.5 - 3.0mg/dl in the last year or so * due to hypertension and vascular disease * Her creatinine has dropped again to 2.1. * This may be due to volume overload. * She received some furosemide from Dr. Fritz yesterday. Will give her another dose today. (2) Diverticular disease of intestine with perforation and abscess: Code(s): K57.80 - Diverticulitis of intestine, part unspecified, with perforation and abscess without bleeding Status: Acute Assessment and Plan: * Surgery following * Afebrile. Her white count is not high. Infected is a little bit low. * s/p percutaneous drain placement for abscess (3) Hypertension: Qualifiers: Hypertension type: essential hypertension Qualified Code(s): I10 - E ssential (primary) hypertension Code(s): I10 - Essential (primary) hypertension Status: Chronic Assessment and Plan: * Systolic running 130-150. * She is currently on carvedilol 25 twice a day. * Diuretics may help bring her blood pressure down as well. (4) Hyponatremia: Code(s): E87.1 - Hypo-osmolality and hyponatremia Status: Acute Assessment and Plan: * mainly due to renal dysfunction * Seems to be trending downwards. * Will start fluid restriction. (5) Chronic anemia: Code(s): D64.9 - Anemia, unspecified Status: Acute Assessment and Plan: * multifactorial etiology: - previous JINA - known CKD - acute illness/inflammation - blood loss? * on Epogen (gets as an outpatient as well) * Hemoglobin is in the low sevens. (6) Generalized weakness: Code(s): R53.1 - Weakness Status: Acute Assessment and Plan: * due to acute illness and multiple hospitalizations * PT/OT as tolerated Will continue to follow. (7) SOB (shortness of breath): Code(s): R06.02 - Shortness of breath Status: Acute Assessment and Plan: Patient has been more short of breath. Ordered x-rays. Chest x-ray shows fluid. Venous Dopplers negative. V/Q scan intermediate. Will diurese. Subjective Date/time seen: 06/13/19 08:02 Interval history: Patient is alert. She is tired. Appetite is good she says, but she did need much dinner last night. She has intermittent shortness of breath. Review of Systems Cardiovascular: Cardiovascular: Reports no additional cardiovascular complaints Respiratory: Respiratory: Reports no additional respiratory complaints Gastrointestinal: Gastrointestinal: Reports no additional gastrointestinal complaints Genitourinary: Genitourinary: Reports no additional female genitourinary complaints Exam Narrative: Exam Narrative: Well developed well-nourished in no acute distress Lungs decreased breath sounds at the bases Heart regular without rub Abdomen bowel sounds positive soft nontender Extremities no edema Skin no rash or subcu nodules Objective Data Vital Signs Vital Signs: Vital Signs - 24 hr 06/12/19 08:00 06/12/19 13:52 06/12/19 14:00 Temperature 36.6 C Pulse Rate 89 94 98 Respiratory Rate 24 H 18 22 H Blood Pressure 150/9
--- NOTE | 2019-06-13 08:02 | PM.PNNEP ---
Progress Note: A&P Assessment and Plan (1) Chronic kidney disease, stage 4 (severe): Code(s): N18.4 - Chronic kidney disease, stage 4 (severe) Status: Chronic Assessment and Plan: relatively stable baseline creatinine runs ~ 2.5 - 3.0mg/dl in the last year or so due to hypertension and vascular disease Her creatinine has dropped again to 2.1. This may be due to volume overload. She received some furosemide from Dr. Fritz yesterday. Will give her another dose today. (2) Diverticular disease of intestine with perforation and abscess: Code(s): K57.80 - Diverticulitis of intestine, part unspecified, with perforation and abscess without bleeding Status: Acute Assessment and Plan: Surgery following Afebrile. Her white count is not high. Infected is a little bit low. s/p percutaneous drain placement for abscess (3) Hypertension: Qualifiers: Hypertension type: essential hypertension Qualified Code(s): I10 - Essential (primary) hypertension Code(s): I10 - Essential (primary) hypertension Status: Chronic Assessment and Plan: Systolic running 130-150. She is currently on carvedilol 25 twice a day. Diuretics may help bring her blood pressure down as well. (4) Hyponatremia: Code(s): E87.1 - Hypo-osmolality and hyponatremia Status: Acute Assessment and Plan: mainly due to renal dysfunction Seems to be trending downwards. Will start fluid restriction. (5) Chronic anemia: Code(s): D64.9 - Anemia, unspecified Status: Acute Assessment and Plan: multifactorial etiology: - previous JINA - known CKD - acute illness/inflammation - blood loss? on Epogen (gets as an outpatient as well) Hemoglobin is in the low sevens. (6) Generalized weakness: Code(s): R53.1 - Weakness Status: Acute Assessment and Plan: due to acute illness and multiple hospitalizations PT/OT as tolerated Will continue to follow. (7) SOB (shortness of breath): Code(s): R06.02 - Shortness of breath Status: Acute Assessment and Plan: Patient has been more short of breath. Ordered x-rays. Chest x-ray shows fluid. Venous Dopplers negative. V/Q scan intermediate. Will diurese. Subjective Date/time seen: 06/13/19 08:02 Interval history: Patient is alert. She is tired. Appetite is good she says, but she did need much dinner last night. She has intermittent shortness of breath. Review of Systems Cardiovascular: Cardiovascular: Reports no additional cardiovascular complaints Respiratory: Respiratory: Reports no additional respiratory complaints Gastrointestinal: Gastrointestinal: Reports no additional gastrointestinal complaints Genitourinary: Genitourinary: Reports no additional female genitourinary complaints Exam Narrative: Exam Narrative: Well developed well-nourished in no acute distress Lungs decreased breath sounds at the bases Heart regular without rub Abdomen bowel sounds positive soft nontender Extremities no edema Skin no rash or subcu nodules Objective Data Vital Signs Vital Signs: Vital Signs - 24 hr 06/12/19 08:00 06/12/19 13:52 06/12/19 14:00 Temperature 36.6 C Pulse Rate 89 94 98 Respiratory Rate 24 H 18 22 H Blood Pressure 150/99 H Pulse Oximetry 97 93 06/12/19 19:05 06/12/19 19:10 06/12/19 20:42 Temperature Pulse Rate 91 92 80 Respiratory Rate 20 18 Blood Pressure Pulse Oximetry 06/12/19 22:00 06/13/19 01:00 06/13/19 01:05 Temperature 36.3 C L Pulse Rate 97 83 86 Respiratory Rate 24 H 18 18 Blood Pressure 142/84 H Pulse Oximetry 97 06/13/19 05:27 Temperature 36.6 C Pulse Rate 81 Respiratory Rate 24 H Blood Pressure 137/73 Pulse Oximetry 96 Intake/Output Intake/Output: Intake & Output 06/10/19 06/11/19 06/12/19 06/14/19 23:59 23:59 23:59 00:59 Intake Total 800 1090 11
[2019-06-13 08:27] LABS: Hematocrit 24.2 % (37.0-47.0); Hemoglobin 7.5 g/dL (12.0-15.0); Mean Corpuscular Hemoglobin 29.4 pg (26-34); Mean Corpuscular Volume 94.9 fl (80-100); Red Blood Count 2.55 M/mm3 (4.2-5.4); Red Cell Distribution Width 17.4 % (11.5-14.5); White Blood Count 2.8 K/mm3 (4.5-10.0)
[2019-06-13 09:08] LABS: Platelet Count Result 16 k/mm3 (150-375)
[2019-06-13] MEDS: BUMETANIDE INJ 1 MG/4 ML VIAL 2 MG IV PUSH ×2 (09:31→17:53)
[2019-06-13] MEDS: allopurinoL 100 MG TABLET PO ×2 (09:32→20:54)
[2019-06-13] MEDS: VITAMIN B COMPLEX CAPSULE 1 CAP PO (09:32)
[2019-06-13] MEDS: MONTELUKAST SODIUM 10 MG TABLET PO (09:32)
[2019-06-13] MEDS: levETIRAcetam 250 MG TABLET PO ×2 (09:32→20:54)
[2019-06-13] MEDS: carvediloL 25 MG TABLET PO ×2 (09:32→20:54)
[2019-06-13] MEDS: CHOLECALCIFEROL 1,000 UNIT TABLET 1000 UNITS PO (09:32)
[2019-06-13] MEDS: GUAIFENESIN/DEXTROMETHORPHAN 10 ML UDC PO ×2 (09:33→20:57)
--- NOTE | 2019-06-13 16:15 | P.PNIM_ITS ---
Progress Note: A&P Assessment and Plan (1) Dyspnea: Qualifiers: Dyspnea type: shortness of breath Qualified Code(s): R06.02 - Shortness of breath Code(s): R06.00 - Dyspnea, unspecified Status: Acute Assessment and Plan: * Due to CHF * Improved after diuresis 655ml 06/11 * Repeat furosemide 06/12, fluid restriction * Echo, TSH pending (2) URI (upper respiratory infection): Qualifiers: URI type: unspecified URI Qualified Code(s): J06.9 - Acute upper respiratory infection, unspecified Code(s): J06.9 - Acute upper respiratory infection, unspecified Status: Acute Assessment and Plan: * Symptomatic treatment (3) Unresponsive episode: Code(s): R41.89 - Other symptoms and signs involving cognitive functions and awareness Status: Acute Assessment and Plan: * C/w seizure with postictal state. * Currently on Keppra 250mg q 12 h w/o recurrence. (4) Diverticular disease of intestine with perforation and abscess: Code(s): K57.80 - Diverticulitis of intestine, part unspecified, with perforation and abscess without bleeding Status: Acute Assessment and Plan: * CT shows worsening * Platelets 3/4, IR inserted drain 3/4 * Draining serosanguinous fluid, minimal amount (5) Chronic anemia: Code(s): D64.9 - Anemia, unspecified Status: Acute Assessment and Plan: * Continue with Epogen MWF as ordered. * Known to have pancytopenia and had a bone marrow biopsy in 2014 that was unremarkable. * 3/8 platelets 13K, 16K; transfuse 2 U pheresed platelets (6) Right knee pain: Qualifiers: Chronicity: acute Qualified Code(s): M25.561 - Pain in right knee Code(s): M25.561 - Pain in right knee Status: Acute Assessment and Plan: * Likely due to fall at facility * PT/OT * Monitor progress (7) Edema: Qualifiers: Edema type: unspecified Qualified Code(s): R60.9 - Edema, unspecified Code(s): R60.9 - Edema, unspecified Status: Acute Assessment and Plan: * Continue with lamin wraps to bilateral lower extremities. (8) Generalized weakness: Code(s): R53.1 - Weakness Status: Acute Assessment and Plan: * PT/OT (9) Chronic kidney disease, stage 4 (severe): Code(s): N18.4 - Chronic kidney disease, stage 4 (severe) Status: Chronic Assessment and Plan: * Continue to monitor * Avoid nephrotoxic drugs * Renal dose meds (10) Hyponatremia: Code(s): E87.1 - Hypo-osmolality and hyponatremia Status: Acute Assessment and Plan: * Chronic and relatively stable * Urine Na 49 on 05/26/2019 * Fluid restriction * F/u lab (11) Hypertension: Qualifiers: Hypertension type: essential hypertension Qualified Code(s): I10 - Essential (primary) hypertension Code(s): I10 - Essential (primary) hypertension Status: Chronic Assessment and Plan: * Hold meds and monitor Subjective Date/time seen: 06/13/19 16:15 Interval history: Tolerated diet and pt. Less sob today. No GI/ c/o. No bleeding. Review of Systems Review of Systems: All systems reviewed & are unremarkable except as noted in HPI and below Exam Narrative: Exam Narrative: HEENT: EOMI, PERRL, sclerae nonicteric, pharyngeal mucosa pink and intact NECK: No JVD, adenopathy, or thyromegaly CHEST: Decreased BS bases HEART: NL S1/S2, regular, 3/6 PAYAL
--- NOTE | 2019-06-13 16:15 | PM.IMPN ---
Progress Note: A&P Assessment and Plan (1) Dyspnea: Qualifiers: Dyspnea type: shortness of breath Qualified Code(s): R06.02 - Shortness of breath Code(s): R06.00 - Dyspnea, unspecified Status: Acute Assessment and Plan: Due to CHF Improved after diuresis 655ml 06/11 Repeat furosemide 06/12, fluid restriction Echo, TSH pending (2) URI (upper respiratory infection): Qualifiers: URI type: unspecified URI Qualified Code(s): J06.9 - Acute upper respiratory infection, unspecified Code(s): J06.9 - Acute upper respiratory infection, unspecified Status: Acute Assessment and Plan: Symptomatic treatment (3) Unresponsive episode: Code(s): R41.89 - Other symptoms and signs involving cognitive functions and awareness Status: Acute Assessment and Plan: C/w seizure with postictal state. Currently on Keppra 250mg q 12 h w/o recurrence. (4) Diverticular disease of intestine with perforation and abscess: Code(s): K57.80 - Diverticulitis of intestine, part unspecified, with perforation and abscess without bleeding Status: Acute Assessment and Plan: CT shows worsening Platelets 3/4, IR inserted drain 3/4 Draining serosanguinous fluid, minimal amount (5) Chronic anemia: Code(s): D64.9 - Anemia, unspecified Status: Acute Assessment and Plan: Continue with Epogen MWF as ordered. Known to have pancytopenia and had a bone marrow biopsy in 2014 that was unremarkable. / platelets 13K, 16K; transfuse 2 U pheresed platelets (6) Right knee pain: Qualifiers: Chronicity: acute Qualified Code(s): M25.561 - Pain in right knee Code(s): M25.561 - Pain in right knee Status: Acute Assessment and Plan: Likely due to fall at facility PT/OT Monitor progress (7) Edema: Qualifiers: Edema type: unspecified Qualified Code(s): R60.9 - Edema, unspecified Code(s): R60.9 - Edema, unspecified Status: Acute Assessment and Plan: Continue with lamin wraps to bilateral lower extremities. (8) Generalized weakness: Code(s): R53.1 - Weakness Status: Acute Assessment and Plan: PT/OT (9) Chronic kidney disease, stage 4 (severe): Code(s): N18.4 - Chronic kidney disease, stage 4 (severe) Status: Chronic Assessment and Plan: Continue to monitor Avoid nephrotoxic drugs Renal dose meds (10) Hyponatremia: Code(s): E87.1 - Hypo-osmolality and hyponatremia Status: Acute Assessment and Plan: Chronic and relatively stable Urine Na 49 on 05/26/2019 Fluid restriction F/u lab (11) Hypertension: Qualifiers: Hypertension type: essential hypertension Qualified Code(s): I10 - Essential (primary) hypertension Code(s): I10 - Essential (primary) hypertension Status: Chronic Assessment and Plan: Hold meds and monitor Subjective Date/time seen: 06/13/19 16:15 Interval history: Tolerated diet and pt. Less sob today. No GI/ c/o. No bleeding. Review of Systems Review of Systems: All systems reviewed & are unremarkable except as noted in HPI and below Exam Narrative: Exam Narrative: HEENT: EOMI, PERRL, sclerae nonicteric, pharyngeal mucosa pink and intact NECK: No JVD, adenopathy, or thyromegaly CHEST: Decreased BS bases HEART: NL S1/S2, regular, 3/6 PAYAL ABDOMEN: BS+, soft, nontender, no mass, no bruits EXTREMITIES: Trace leg edema NEUROLOGIC: CN intact and symmetric to inspection. MUSCULOSKELETAL: Tone and strength symmetric. PSYCH: Alert. Oriented to person, place, and time. Objective Data Vital Signs Vital Signs: Vital Signs - 24 hr 06/12/19 19:05 06/12/19 19:10 06/12/19 20:42 Temperature Pulse Rate 91 92 80 Respiratory Rate 20 18 Blood Pressure Pulse Oximetry 06/12/19 22:00 06/13/19 01:00 06/13/19 01:05 Temperature 97.3 F L
--- NOTE | 2019-06-13 16:59 | PM.PNGS ---
Progress Note: A&P Assessment and Plan (1) Diverticular disease of intestine with perforation and abscess: Code(s): K57.80 - Diverticulitis of intestine, part unspecified, with perforation and abscess without bleeding Status: Acute Assessment and Plan: seems that the abscess is well drained and the infection associated with diverticulitis is well controlled. Her abdomen is soft nontender with active normal bowel sounds. She seems to be primarily ill from pulmonary problems. (2) Thrombocytopenia: Code(s): D69.6 - Thrombocytopenia, unspecified Status: Acute Assessment and Plan: platelet count down to 13,000 with repeat at 16,000 today. (3) Chronic anemia: Code(s): D64.9 - Anemia, unspecified Status: Acute Assessment and Plan: Stable (4) Neutropenia: Code(s): D70.9 - Neutropenia, unspecified Status: Acute Assessment and Plan: WBC 2800 today -same as yesterday (5) SOB (shortness of breath): Code(s): R06.02 - Shortness of breath Status: Acute Assessment and Plan: CHF or pneumonia, hospitalist evaluating and treating. (6) Chronic kidney disease, stage 4 (severe): Code(s): N18.4 - Chronic kidney disease, stage 4 (severe) Status: Chronic Assessment and Plan: creatinine down to 2.1. Subjective Subjective Date/Time Seen: 06/13/19 16:59 Much coughing. Could not sleep last night primarily due to coughing. Feels very weak. Not much appetite. No abdominal pain. Had bowel movement yesterday. Review of Systems Review of Systems: All systems reviewed & are unremarkable except as noted in HPI and below ( HPI) Constitutional: Constitutional: Denies chills, Reports fatigue, Denies fever(s), Reports lethargy, Reports malaise and Reports poor appetite Respiratory: Respiratory: Reports cough Gastrointestinal: Gastrointestinal: Denies abdominal pain, Denies diarrhea, Denies nausea and Denies vomiting Objective Data Vital Signs Vital Signs: Vital Signs - 24 hr 06/12/19 19:05 06/12/19 19:10 06/12/19 20:42 Temperature Pulse Rate 91 92 80 Respiratory Rate 20 18 Blood Pressure Pulse Oximetry 06/12/19 22:00 06/13/19 01:00 06/13/19 01:05 Temperature 36.3 C L Pulse Rate 97 83 86 Respiratory Rate 24 H 18 18 Blood Pressure 142/84 H Pulse Oximetry 97 06/13/19 05:27 06/13/19 08:00 06/13/19 08:56 Temperature 36.6 C Pulse Rate 81 90 90 Respiratory Rate 24 H 18 18 Blood Pressure 137/73 Pulse Oximetry 96 96 06/13/19 09:06 06/13/19 14:00 06/13/19 14:40 Temperature 36.5 C Pulse Rate 91 91 94 Respiratory Rate 18 20 18 Blood Pressure 151/90 H Pulse Oximetry 97 Intake/Output Intake/Output: Intake & Output 06/10/19 06/11/19 06/12/19 06/14/19 23:59 23:59 23:59 00:59 Intake Total 800 1090 1100 450 Output Total 740 756 987 5030 Balance 60 240 140 -655 Meds/Results Medications: Active Medications Generic Name Dose Route Start Last Admin Trade Name Freq PRN Reason Stop Dose Admin Albuterol 2.5 mg 06/13/19 15:16 Albuterol Sulf Neb 2.5mg/0.5ml INHALATION Q6HRT PRN Shortness Of Breath Or Wheezing Allopurinol 100 mg 06/08/19 21:00 06/13/19 09:32 Zyloprim PO 100 mg Q12HR LYLE Administration Bumetanide 2 mg 06/13/19 09:00 06/13/19 09:31 Bumex Inj IV PUSH 2 mg BID LYLE Administration Carvedilol 25 mg 06/08/19 21:00 06/13/19 09:32 Coreg PO 25 mg Q12HR LYLE Administration Epoetin Nixon 10,000 units 06/11/19 09:00 06/11/19 12:57 Epogen SUB-Q 10,000 units [id number] LYLE Administration Fluticasone Propionate 2 spray 06/08/19 21:00 06/12/19 20:42 Flonase 0.05% Nasal [place] NASAL 2 spray HS LYLE Administration Guaifenesin/Dextromethorphan 10 ml 06/10/19 13:18 06/13/19 09:33 Robitussin-Dm Syrup PO 10 ml Q4H PRN Administration Cough Sodium Chloride 250 mls @ 30 mls/hr 06/13/19
[2019-06-13] MEDS: FUROSEMIDE INJ 40 MG/4 ML VIAL 20 MG IV PUSH (17:54)
[2019-06-13] MEDS: SODIUM CHLORIDE 0.9% IV 250 ML 30 ML IV CONT (20:40)
[2019-06-13] MEDS: FLUTICASONE PROPIONATE 0.05% NA SPR 16 GM BTL (*BKC) 2 SPRAY NASAL (20:54)
[2019-06-14] VITALS (10 sets, daily range): BP systolic 132–147; BP diastolic 75–83; PULSE 83–94; RESP 16–20; TEMP 36.1–36.6; O2SAT 92–100; BMI 10.0
--- NOTE | 2019-06-14 | ECHO_ITS ---
Patient Info Name: Grecia Patterson Age: 78 years : 1940 Gender: Female Ht: 62 in Wt: 155 lbs BSA: 1.78 m2 HR: 91 bpm BP: 137 / 66 mmHg Heart Rhythm: Sinus Rhythm Technical Quality: Good Exam Date: 06/14/2019 10:14 AM Exam Location: [facility] Patient Status: Inpatient Admit Date: 06/08/2019 Staff Ordering Physician: Marciano Muñiz MD Machine Applicator Cementer: Agustin Gibbons RDCS Attending Provider: Gerardo Guzman MD Referring Physician: Mary Kay WAY; Exam Type: CA echo doppler color flow Study Info Indications I50.9 - Heart failure, unspecified R01.1 - Cardiac murmur, unspecified Complete two-dimensional, color flow and Doppler transthoracic echocardiogram is performed. Strain analysis performed. History/Risk Factors CHF, murmur, dyspnea. Summary 1. Left ventricular chamber dimension is normal. 2. Left ventricular systolic function is normal, estimated at 60-65%. 3. There is moderately increased left ventricular wall thickness. 4. The left ventricular diastolic function is grade I diastolic dysfunction. 5. E/e' 24 is significantly elevated. 6. Global longitudinal strain is abnormal at -13.8%. 7. Left atrial chamber dimension is severely enlarged. 8. Right atrial chamber dimension is mildly enlarged. 9. There is moderate aortic valve sclerosis. 10. There is mild to moderate aortic valve stenosis with a peak velocity of 252 cm/s, mean gradient of 12 mmHg, and aortic valve area of 1.6 cm2. 11. The mitral valve has severely calcified annulus. 12. There is moderate tricuspid valve regurgitation. 13. Mild pulmonary hypertension, estimated pulmonary arterial systolic pressure is 46 mmHg. 14. There is trace pulmonic regurgitation. 15. There is trivial pericardial effusion. Left Ventricle E/e' 24 is significantly elevated. Global longitudinal strain is abnormal at -13.8%. Left ventricular chamber dimension is normal. Left ventricular systolic function is normal, estimated at 60-65%. There is moderately increased left ventricular wall thickness. The left ventricular diastolic function is grade I diastolic dysfunction. Right Ventricle Right ventricular chamber dimension is normal. Right ventricular systolic function is normal. Left Atria Left atrial chamber dimension is severely enlarged. Right Atria Right atrial chamber dimension is mildly enlarged. Aortic Valve The aortic valve is trileaflet. There is moderate aortic valve sclerosis. There is mild to moderate aortic valve stenosis with a peak velocity of 252 cm/s, mean gradient of 12 mmHg, and aortic valve area of 1.6 cm2. There is no aortic valve regurgitation. Pulmonic Valve There is trace pulmonic regurgitation. Mitral Valve The mitral valve has severely calcified annulus. There is no mitral valve stenosis. There is no mitral valve regurgitation. Tricuspid Valve There is moderate tricuspid valve regurgitation. Mild pulmonary hypertension, estimated pulmonary arterial systolic pressure is 46 mmHg. Pericardium/Pleural There is trivial pericardial effusion. Inferior Vena Cava Normal inferior vena cava with >50% collapse upon inspiration consistent with normal right atrial pressure, 5 mmHg. Aorta The aortic root size at the sinus of Valsalva is normal. Left Ventricular Outflow Tract Name Value Normal
[2019-06-14 00:35] LABS: Immature Platelet Fraction Pct 2.5 % (0.9-11.2); Mean Platelet Volume 11.4 fl (7.4-10.4); Platelet Count Result 38 k/mm3 (150-375)
[2019-06-14] MEDS: ALBUTEROL SULFATE NEB 2.5 MG/0.5 ML INH INHALATION (02:20)
[2019-06-14 06:07] LABS: Hematocrit 21.9 % (37.0-47.0); Mean Corpuscular Hemoglobin 29.7 pg (26-34); Mean Corpuscular Volume 92.8 fl (80-100); Mean Platelet Volume 13.1 fl (7.4-10.4); Red Blood Count 2.36 M/mm3 (4.2-5.4); Red Cell Distribution Width 17.4 % (11.5-14.5); White Blood Count 3.2 K/mm3 (4.5-10.0)
[2019-06-14 06:08] LABS: Platelet Count Result 23 k/mm3 (150-375)
[2019-06-14 06:20] LABS: Albumin Level 2.4 g/dL (3.5-5.1); Blood Urea Nitrogen 34 mg/dL (7-17); CRP 1.7 mg/dL (<1.0); Calcium 8.4 mg/dL (8.4-10.2); Carbon Dioxide 22 mmol/L (22-30); Chloride 101 mmol/L (98-107); Estimated CRCL calculation 20 ml/min; Estimated Glomerular Filt Rate 24; Glucose 103 mg/dL (65-105); Phosphorus 4.1 mg/dL (2.5-4.5); Sodium 129 mmol/L (137-145)
[2019-06-14 08:52] LABS: Total Triiodothyronine (T3) 0.66 NG/ML (0.97-1.69)
--- NOTE | 2019-06-14 08:53 | WPDGIPROGNO ---
Progress Note: A&P Additional Plan Patient remains short of breath this morning. Physical exam reveals her to be alert. Very weak. Lungs revealed diffuse rhonchi. Some raw also noted. Heart without murmur. Abdomen is soft and nontender. Percutaneous drain present. Impression 1. Abdominal abscess. Related to recent diverticulitis. Appears adequately drained. 2. Congestive heart failure. Appears to account for her shortness of breath. Diuresis per primary care service. 3. Pancytopenia. May be related to infection. She has a long history of thrombocytopenia followed by [facility]. Need to continue to monitor her CBC. No evidence for active GI blood loss. 4. History of gastric ulcer. Adequately treated and stable on PPI therapy. 5. Chronic kidney disease. Likely contributes to her anemia. She is receiving Epogen intermittently. Current problem appears to be respiratory in nature. Currently being treated by primary care service. Subjective Date/time seen: 06/14/19 08:53 Objective Data Vital Signs Vital Signs: Vital Signs - 24 hr 06/13/19 08:56 06/13/19 09:06 06/13/19 14:00 Temperature 36.5 C Pulse Rate 90 91 91 Respiratory Rate 18 18 20 Blood Pressure 151/90 H Pulse Oximetry 97 06/13/19 14:40 06/13/19 14:50 06/13/19 20:08 Temperature Pulse Rate 94 90 100 Respiratory Rate 18 18 18 Blood Pressure Pulse Oximetry 06/13/19 20:18 06/13/19 20:40 06/13/19 20:54 Temperature 36.8 C Pulse Rate 103 H 93 93 Respiratory Rate 18 18 Blood Pressure 135/80 Pulse Oximetry 93 06/13/19 20:55 06/13/19 20:56 06/13/19 21:50 Temperature 36.9 C 36.9 C 36.9 C Pulse Rate 96 96 89 Respiratory Rate 18 18 20 Blood Pressure 139/76 139/76 122/60 Pulse Oximetry 95 95 92 06/13/19 21:56 06/13/19 22:11 06/13/19 22:41 Temperature 36.9 C 36.6 C 36.8 C Pulse Rate 89 87 93 Respiratory Rate 20 18 18 Blood Pressure 122/60 121/76 135/80 Pulse Oximetry 92 94 93 06/13/19 23:11 06/14/19 02:20 03/09/20 06:51 Temperature 36.4 C 36.5 C Pulse Rate 93 90 88 Respiratory Rate 16 18 18 Blood Pressure 137/66 Pulse Oximetry 93 92 Intake/Output Intake/Output: Intake & Output 06/11/19 06/12/19 06/13/19 06/14/19 22:59 22:59 23:59 23:59 Intake Total Output Total 1050 Balance -1050 Meds/Results Medications: Active Medications Generic Name Dose Route Start Last Admin Trade Name Freq PRN Reason Stop Dose Admin Albuterol 2.5 mg 06/13/19 15:16 06/14/19 02:20 Albuterol Sulf Neb 2.5mg/0.5ml INHALATION 2.5 mg Q6HRT PRN Administration Shortness Of Breath Or Wheezing Allopurinol 100 mg 06/08/19 21:00 06/13/19 20:54 Zyloprim PO 100 mg Q12HR LYLE Administration Bumetanide 2 mg 06/13/19 09:00 06/13/19 17:53 Bumex Inj IV PUSH 2 mg BID LYLE Administration Carvedilol 25 mg 06/08/19 21:00 06/13/19 20:54 Coreg PO 25 mg Q12HR LYLE Administration Epoetin Nixon 10,000 units 06/11/19 09:00 06/11/19 12:57 Epogen SUB-Q 10,000 units [id number] LYLE Administration Fluticasone Propionate 2 spray 06/08/19 21:00 06/13/19 20:54 Flonase 0.05% Nasal [place] NASAL 2 spray HS LYLE Administration Guaifenesin/Dextromethorphan 10 ml 06/10/19 13:18 06/13/19 20:57 Robitussin-Dm Syrup PO 10 ml Q4H PRN Administration Cough Levetiracetam 250 mg 06/08/19 21:00 06/13/19 20:54 Keppra Tablet PO 250 mg Q12HR LYLE Administration Montelukast Sodium 10 mg 06/09/19 09:00 06/13/19 09:32 Singulair PO 10 mg DAILY LYLE Administration Neomycin/Polymyxin/Bacitracin 1 applic 06/10/19 14:36 06/10/19 21:47 Triple Antibiotic Ointment TOPICAL 1 applic PRN PRN Administration Dry Skin Ondansetron HCl 4 mg 06/08/19 18:39 Zofran Inj IV PUSH Q6H PRN Nausea And Vomiting Vitamin B Complex 1 cap 06/09/19 09:00 06/13/19 09:32 Vitamin B Complex PO 1 cap DAILY LYLE Administration
[2019-06-14] MEDS: carvediloL 25 MG TABLET PO ×2 (09:20→21:32)
[2019-06-14] MEDS: VITAMIN B COMPLEX CAPSULE 1 CAP PO (09:20)
[2019-06-14] MEDS: levETIRAcetam 250 MG TABLET PO ×2 (09:20→21:30)
[2019-06-14] MEDS: CHOLECALCIFEROL 1,000 UNIT TABLET 1000 UNITS PO (09:20)
[2019-06-14] MEDS: allopurinoL 100 MG TABLET PO ×2 (09:21→21:30)
[2019-06-14] MEDS: MONTELUKAST SODIUM 10 MG TABLET PO (09:21)
[2019-06-14] MEDS: BUMETANIDE INJ 1 MG/4 ML VIAL 2 MG IV PUSH ×2 (09:21→17:10)
[2019-06-14] MEDS: EPOETIN ALFA 10,000 UNITS/ML VIAL 10000 UNITS SUB-Q (09:22)
--- NOTE | 2019-06-14 11:15 | PC.NURSE ---
Patient unable to tolerate standing for orthostatic BP.
--- NOTE | 2019-06-14 12:08 | WPDINFPN2 ---
Progress Note: A&P Assessment and Plan (1) Diverticular disease of intestine with perforation and abscess: Code(s): K57.80 - Diverticulitis of intestine, part unspecified, with perforation and abscess without bleeding Status: Acute Assessment and Plan: 1. Diverticular abscess, drained percutaneously POD #5. Culture mixed carly as one would expect. Drain output down to 5-10 cc / 24 hours. 2. Multiple allergies 3. Seizure, not apparently due to #1 4. Protein calorie malnutrition 5. Cough, upper respiratory source REC Not in need of antibiotic resumption. Elective sigmoid resection. Uodated patient and daughters. Will sign off, thanks. Subjective Date/time seen: 06/14/19 12:08 Interval history: cough, chronic post nasal drainage. Exam Narrative: Exam Narrative: afebrile Const: General: no acute distress Resp: Effort & Inspection: normal respiratory effort Auscultation: clear to auscultation bilaterally Cardio: Rate: regular rate Rhythm: regular rhythm GI: Inspection: non-distended GI Palp: Yes Soft to palpation Other: drain thin brown Objective Data Vital Signs Vital Signs: Vital Signs - 24 hr 06/13/19 14:00 06/13/19 14:40 06/13/19 14:50 Temperature 36.5 C Pulse Rate 91 94 90 Respiratory Rate 20 18 18 Blood Pressure 151/90 H Pulse Oximetry 97 06/13/19 20:08 06/13/19 20:18 06/13/19 20:40 Temperature 36.8 C Pulse Rate 100 103 H 93 Respiratory Rate 18 18 18 Blood Pressure 135/80 Pulse Oximetry 93 06/13/19 20:54 06/13/19 20:55 06/13/19 20:56 Temperature 36.9 C 36.9 C Pulse Rate 93 96 96 Respiratory Rate 18 18 Blood Pressure 139/76 139/76 Pulse Oximetry 95 95 06/13/19 21:50 06/13/19 21:56 06/13/19 22:11 Temperature 36.9 C 36.9 C 36.6 C Pulse Rate 89 89 87 Respiratory Rate 20 20 18 Blood Pressure 122/60 122/60 121/76 Pulse Oximetry 92 92 94 06/13/19 22:41 06/13/19 23:11 06/14/19 02:20 Temperature 36.8 C 36.4 C Pulse Rate 93 93 90 Respiratory Rate 18 16 18 Blood Pressure 135/80 137/66 Pulse Oximetry 93 93 06/14/19 06:51 06/14/19 11:15 06/14/19 11:20 Temperature 36.5 C Pulse Rate 88 Respiratory Rate 18 Blood Pressure 134/77 137/77 Pulse Oximetry 92 Intake/Output Intake/Output: Intake & Output 06/11/19 06/12/19 06/13/19 06/14/19 22:59 22:59 23:59 23:59 Intake Total 0 Output Total 1050 Balance -1050 Meds/Results Medications: Active Medications Generic Name Dose Route Start Last Admin Trade Name Freq PRN Reason Stop Dose Admin Albuterol 2.5 mg 06/13/19 15:16 06/14/19 02:20 Albuterol Sulf Neb 2.5mg/0.5ml INHALATION 2.5 mg Q6HRT PRN Administration Shortness Of Breath Or Wheezing Allopurinol 100 mg 06/08/19 21:00 06/14/19 09:21 Zyloprim PO 100 mg Q12HR LYLE Administration Bumetanide 2 mg 06/13/19 09:00 06/14/19 09:21 Bumex Inj IV PUSH 2 mg BID LYLE Administration Carvedilol 25 mg 06/08/19 21:00 06/14/19 09:20 Coreg PO 25 mg Q12HR LYLE Administration Epoetin Nixon 10,000 units 06/11/19 09:00 06/14/19 09:22 Epogen SUB-Q 10,000 units [id number] LYLE Administration Fluticasone Propionate 2 spray 06/08/19 21:00 06/13/19 20:54 Flonase 0.05% Nasal [place] NASAL 2 spray HS LYLE Administration Guaifenesin/Dextromethorphan 10 ml 06/10/19 13:18 06/13/19 20:57 Robitussin-Dm Syrup PO 10 ml Q4H PRN Administration Cough Levetiracetam 250 mg 06/08/19 21:00 06/14/19 09:20 Keppra Tablet PO 250 mg Q12HR LYLE Administration Montelukast Sodium 10 mg 06/09/19 09:00 06/14/19 09:21 Singulair PO 10 mg DAILY LYLE Administration Neomycin/Polymyxin/Bacitracin 1 applic 06/10/19 14:36 06/10/19 21:47 Triple Antibiotic Ointment TOPICAL 1 applic PRN PRN Administration Dry Skin Ondansetron HCl 4 mg 06/08/19 18:39 Zofran Inj IV PUSH Q6H PRN Nausea And Vomiting Vitamin B Complex 1 cap 06/09/19 09
--- NOTE | 2019-06-14 12:50 | PM.PNGS ---
Progress Note: A&P Assessment and Plan (1) Diverticular disease of intestine with perforation and abscess: Code(s): K57.80 - Diverticulitis of intestine, part unspecified, with perforation and abscess without bleeding Status: Acute Assessment and Plan: Abscess well-drained with the diverticulitis seems well controlled. No longer on antibiotics. Continue perc. drain to suction. Tolerating a low fiber diet. Continues to have added medical issues complicating her hospitalization and inhibiting the ability to gain strength. (2) Thrombocytopenia: Code(s): D69.6 - Thrombocytopenia, unspecified Status: Acute Assessment and Plan: Platelets 23,000 today after 2 units of FFP yesterday. (3) Chronic anemia: Code(s): D64.9 - Anemia, unspecified Status: Acute Assessment and Plan: Stable (4) Neutropenia: Code(s): D70.9 - Neutropenia, unspecified Status: Acute Assessment and Plan: WBC 3,200 today. (5) SOB (shortness of breath): Code(s): R06.02 - Shortness of breath Status: Acute Assessment and Plan: [place] to be due to CHF. Continue with diuresis per the Hospitalist and she is currently on a fluid restriction. (6) Chronic kidney disease, stage 4 (severe): Code(s): N18.4 - Chronic kidney disease, stage 4 (severe) Status: Chronic Assessment and Plan: Creatinine down to 2.0 Subjective Subjective Date/Time Seen: 06/14/19 09:20 Patient reports: no new complaints, tolerating a regular diet, flatus, bowel movement and shortness of breath (similar to yesterday) Interval history: Patient seen and examined. Denies abdominal pain, nausea, vomiting, and bloating. Tolerating her diet. Reporting shortness of breath at rest but states it is the same as yesterday. No new complaints. Review of Systems Review of Systems: All systems reviewed & are unremarkable except as noted in HPI and below Exam Const: General: comfortable, no acute distress and tired appearing Orientation/consciousness: patient oriented x3 Resp: Effort & Inspection: tachypneic GI: Inspection: other (mild distention, unchanged) GI Palp: Yes Soft to palpation, Yes Tenderness to palpation present (GI) (RLQ near perc. drain), No Guarding due to palpation present (GI), No Rigid due to palpation and No Rebound tenderness present Auscultation: normal bowel sounds Other: RLQ percutaneous abscess drain with minimal purulent mckinnon/pink drainage in bag Urinary Catheter: Urinary Catheter: patent and draining and urine clear Neuro: General: moves all extremities Extrem: General: edema bilateral (mild, pitting) Psych: Mental Status: mental status grossly normal Attitude: cooperative Thought process: Normal thought process present Objective Data Vital Signs Vital Signs: Vital Signs - 24 hr 06/13/19 14:00 06/13/19 14:40 06/13/19 14:50 Temperature 36.5 C Pulse Rate 91 94 90 Respiratory Rate 20 18 18 Blood Pressure 151/90 H Pulse Oximetry 97 06/13/19 20:08 06/13/19 20:18 06/13/19 20:40 Temperature 36.8 C Pulse Rate 100 103 H 93 Respiratory Rate 18 18 18 Blood Pressure 135/80 Pulse Oximetry 93 06/13/19 20:54 06/13/19 20:55 06/13/19 20:56 Temperature 36.9 C 36.9 C Pulse Rate 93 96 96 Respiratory Rate 18 18 Blood Pressure 139/76 139/76 Pulse Oximetry 95 95 06/13/19 21:50 06/13/19 21:56 06/13/19 22:11 Temperature 36.9 C 36.9 C 36.6 C Pulse Rate 89 89 87 Respiratory Rate 20 20 18 Blood Pressure 122/60 122/60 121/76 Pulse Oximetry 92 92 94 06/13/19 22:41 06/13/19 23:11 06/14/19 02:20 Temperature 36.8 C 36.4 C Pulse Rate 93 93 90 Respiratory Rate 18 16 18 Blood Pressure 135/80 137/66 Pulse Oximetry 93 93 06/14/19 06:51 06/14/19 11:15 06/14/19 11:20 Temperature 36.5 C Pulse Rate 88 Respiratory Rate 18 Blood Pressure 134/77 137/77 Pulse Oximetry 92 Intake/Output Intake/Output: Intake & Output
--- NOTE | 2019-06-14 14:52 | PCNFU ---
Nutrition Follow-Up Complete: Altered GI function related to diverticulitis as evidenced by noted bloating,and altered nutrition-related lab values (Hgb 7.4 and Hct 22.6). Pt able to tolerate diet as it advances. Goal: slowly progressing towards goal. Pt current nutrition is Low Fiber with 1200 ml FR. Nutrition recommendation:Agree Last recorded weight is 70.5 kg. Bowel Motility:+BM/flatus Labs Reviewed:Cr 2.0,BUN 34,GFR 24,Na 129,Hct 21.9,Hgb 7.0 Meds Noted:Vit D, B complex, Bumex Additional Notes: Patient currently on a Low Fiber diet with 1200 ml FR and Ensure Clear once daily. Currently patient intakes are poor 10-25% of most meals. Patient is getting an additional 240 kcals and 8 gms protein. PO intake is encouraged. Agree with diet orders at this time. Will monitor labs and intake. Follow up in 5 days.
--- NOTE | 2019-06-14 15:08 | P.PNIM_ITS ---
Progress Note: A&P Assessment and Plan (1) Dyspnea: Qualifiers: Dyspnea type: shortness of breath Qualified Code(s): R06.02 - Shortness of breath Code(s): R06.00 - Dyspnea, unspecified Status: Acute Assessment and Plan: * Due to CHF * Improved after diuresis 655ml 06/11 * Repeat furosemide 06/12, fluid restriction * Echo with moderate , NL LVEF, diastolic dysfuntion * Continue furosemide IV daily * F/u CXR (2) URI (upper respiratory infection): Qualifiers: URI type: unspecified URI Qualified Code(s): J06.9 - Acute upper respiratory infection, unspecified Code(s): J06.9 - Acute upper respiratory infection, unspecified Status: Acute Assessment and Plan: * Symptomatic treatment (3) Unresponsive episode: Code(s): R41.89 - Other symptoms and signs involving cognitive functions and awareness Status: Acute Assessment and Plan: * C/w seizure with postictal state. * Currently on Keppra 250mg q 12 h w/o recurrence. (4) Diverticular disease of intestine with perforation and abscess: Code(s): K57.80 - Diverticulitis of intestine, part unspecified, with perforation and abscess without bleeding Status: Acute Assessment and Plan: * CT shows worsening * Platelets 3/4, IR inserted drain 3/ * Draining serosanguinous fluid, minimal amount (5) Chronic anemia: Code(s): D64.9 - Anemia, unspecified Status: Acute Assessment and Plan: * Continue with Epogen MWF as ordered. * Known to have pancytopenia and had a bone marrow biopsy in 2014 that was unremarkable. * / platelets 13K, 16K; transfuse 2 U pheresed platelets * / platelets 23K (6) Right knee pain: Qualifiers: Chronicity: acute Qualified Code(s): M25.561 - Pain in right knee Code(s): M25.561 - Pain in right knee Status: Acute Assessment and Plan: * Likely due to fall at facility * PT/OT * Monitor progress (7) Edema: Qualifiers: Edema type: unspecified Qualified Code(s): R60.9 - Edema, unspecified Code(s): R60.9 - Edema, unspecified Status: Acute Assessment and Plan: * Continue with lamin wraps to bilateral lower extremities. (8) Generalized weakness: Code(s): R53.1 - Weakness Status: Acute Assessment and Plan: * PT/OT (9) Chronic kidney disease, stage 4 (severe): Code(s): N18.4 - Chronic kidney disease, stage 4 (severe) Status: Chronic Assessment and Plan: * Continue to monitor * Avoid nephrotoxic drugs * Renal dose meds (10) Hyponatremia: Code(s): E87.1 - Hypo-osmolality and hyponatremia Status: Acute Assessment and Plan: * Chronic and relatively stable * Urine Na 49 on 05/26/2019 * Fluid restriction * F/u lab (11) Hypertension: Qualifiers: Hypertension type: essential hypertension Qualified Code(s): I10 - Essential (primary) hypertension Code(s): I10 - Essential (primary) hypertension Status: Chronic Assessment and Plan: * Hold meds and monitor Subjective Date/time seen: 06/14/19 15:08 Interval history: Tired. Dry cough. CAMPBELL. Mild edema. Poor appetite. Review of Systems Review of Systems: All systems reviewed & are unremarkable except as noted in HPI and below Exam Narrative: Exam Narrative: HEENT: EOMI, PERRL, sclerae nonicteric, pharyngeal mucosa pink and intact NECK: No JVD CHEST: Decreas
--- NOTE | 2019-06-14 15:08 | PM.IMPN ---
Progress Note: A&P Assessment and Plan (1) Dyspnea: Qualifiers: Dyspnea type: shortness of breath Qualified Code(s): R06.02 - Shortness of breath Code(s): R06.00 - Dyspnea, unspecified Status: Acute Assessment and Plan: Due to CHF Improved after diuresis 655ml 06/11 Repeat furosemide 06/12, fluid restriction Echo with moderate , NL LVEF, diastolic dysfuntion Continue furosemide IV daily F/u CXR (2) URI (upper respiratory infection): Qualifiers: URI type: unspecified URI Qualified Code(s): J06.9 - Acute upper respiratory infection, unspecified Code(s): J06.9 - Acute upper respiratory infection, unspecified Status: Acute Assessment and Plan: Symptomatic treatment (3) Unresponsive episode: Code(s): R41.89 - Other symptoms and signs involving cognitive functions and awareness Status: Acute Assessment and Plan: C/w seizure with postictal state. Currently on Keppra 250mg q 12 h w/o recurrence. (4) Diverticular disease of intestine with perforation and abscess: Code(s): K57.80 - Diverticulitis of intestine, part unspecified, with perforation and abscess without bleeding Status: Acute Assessment and Plan: CT shows worsening Platelets 3/4, IR inserted drain 3/4 Draining serosanguinous fluid, minimal amount (5) Chronic anemia: Code(s): D64.9 - Anemia, unspecified Status: Acute Assessment and Plan: Continue with Epogen MWF as ordered. Known to have pancytopenia and had a bone marrow biopsy in 2014 that was unremarkable. 06/12 platelets 13K, 16K; transfuse 2 U pheresed platelets 06/13 platelets 23K (6) Right knee pain: Qualifiers: Chronicity: acute Qualified Code(s): M25.561 - Pain in right knee Code(s): M25.561 - Pain in right knee Status: Acute Assessment and Plan: Likely due to fall at facility PT/OT Monitor progress (7) Edema: Qualifiers: Edema type: unspecified Qualified Code(s): R60.9 - Edema, unspecified Code(s): R60.9 - Edema, unspecified Status: Acute Assessment and Plan: Continue with lamin wraps to bilateral lower extremities. (8) Generalized weakness: Code(s): R53.1 - Weakness Status: Acute Assessment and Plan: PT/OT (9) Chronic kidney disease, stage 4 (severe): Code(s): N18.4 - Chronic kidney disease, stage 4 (severe) Status: Chronic Assessment and Plan: Continue to monitor Avoid nephrotoxic drugs Renal dose meds (10) Hyponatremia: Code(s): E87.1 - Hypo-osmolality and hyponatremia Status: Acute Assessment and Plan: Chronic and relatively stable Urine Na 49 on 05/26/2019 Fluid restriction F/u lab (11) Hypertension: Qualifiers: Hypertension type: essential hypertension Qualified Code(s): I10 - Essential (primary) hypertension Code(s): I10 - Essential (primary) hypertension Status: Chronic Assessment and Plan: Hold meds and monitor Subjective Date/time seen: 06/14/19 15:08 Interval history: Tired. Dry cough. CAMPBELL. Mild edema. Poor appetite. Review of Systems Review of Systems: All systems reviewed & are unremarkable except as noted in HPI and below Exam Narrative: Exam Narrative: HEENT: EOMI, PERRL, sclerae nonicteric, pharyngeal mucosa pink and intact NECK: No JVD CHEST: Decreased BS bases HEART: NL S1/S2, regular, 3/6 PAYAL ABDOMEN: BS+, soft, nontender, no mass, no bruits EXTREMITIES: Trace leg edema NEUROLOGIC: CN intact and symmetric to inspection. MUSCULOSKELETAL: Tone and strength symmetric. PSYCH: Alert. Oriented to person, place, and time. Objective Data Vital Signs Vital Signs: Vital Signs - 24 hr 06/13/19 20:08 06/13/19 20:18 06/13/19 20:40 Temperature 98.2 F Pulse Rate 100 103 H 93 Respiratory Rate 18 18 18 Blood Pressure 135/80 Pulse Oximetry 93 03/0
[2019-06-14] MEDS: FUROSEMIDE INJ 40 MG/4 ML VIAL IV PUSH (15:49)
--- NOTE | 2019-06-14 18:10 | P.PNNP_ITS ---
Progress Note: A&P Assessment and Plan (1) Chronic kidney disease, stage 4 (severe): Code(s): N18.4 - Chronic kidney disease, stage 4 (severe) Status: Chronic Assessment and Plan: * relatively stable * baseline creatinine runs ~ 2.5 - 3.0mg/dl in the last year or so * due to hypertension and vascular disease * creatinine lower than baseline recently (creatinine 2.0 today) - this may be a dilutional value secondary to fluid retention - her poor oral intake and loss of muscle mass may partly explain this as well * not opposed to PRN or scheduled diuretics (2) Diverticular disease of intestine with perforation and abscess: Code(s): K57.80 - Diverticulitis of intestine, part unspecified, with perforation and abscess without bleeding Status: Acute Assessment and Plan: * Surgery and Infectious Disease following. * s/p percutaneous drain placement for abscess * no need for antibiotics at this time (3) Hypertension: Qualifiers: Hypertension type: essential hypertension Qualified Code(s): I10 - Essential (primary) hypertension Code(s): I10 - Essential (primary) hypertension Status: Chronic Assessment and Plan: * reasonable control at this time * follow hemodynamics (4) SOB (shortness of breath): Code(s): R06.02 - Shortness of breath Status: Acute Assessment and Plan: * suspect due to fluid overload and possible anemia * getting PRN diuretics - not opposed to scheduled dosing * wean oxygen as tolerated (5) Hyponatremia: Code(s): E87.1 - Hypo-osmolality and hyponatremia Status: Acute Assessment and Plan: * mainly due to renal dysfunction and possibly fluid retention * started on fluid restriction * follow trend of sodium (6) Chronic anemia: Code(s): D64.9 - Anemia, unspecified Status: Acute Assessment and Plan: * multifactorial etiology: - previous JINA - known CKD - acute illness/inflammation - blood loss? * on Epogen (gets as an outpatient as well) * follow trend of H/H (7) Generalized weakness: Code(s): R53.1 - Weakness Status: Acute Assessment and Plan: * due to acute illness and multiple hospitalizations * PT/OT as tolerated Will continue to follow Subjective Date/time seen: 06/14/19 18:10 Sleeping comfortably at the time of my visit; appetite remains poor and has some shortness of breath worsened with exertional activities; no other apparent complaints aside from weakness. Exam Narrative: Exam Narrative: General: WD/WN female in NAD Heart: normal S1 and S2; no rub Lungs: clear to auscultation Abdomen: soft, nontender, nondistended, positive bowel sounds Extremities: no cyanosis or clubbing; trace edema Skin: warm and dry Objective Data Vital Signs Vital Signs: Vital Signs Temp Pulse Resp BP Pulse Ox 06/14/19 15:24 94 06/14/19 14:00 36.6 C 94 16 144/78 H 100 06/14/19 11:20 137/77 06/14/19 11:15 134/77 06/14/19 06:51 36.5 C 88 18 92 06/14/19 02:20 90 18 06/13/19 23:11 36.4 C 93 16 137/66 93 06/13/19 22:41 36.8 C 93 18 135/80 93 06/13/19 22:11 36.6 C 87 18 121/76 94 06/13/19 21:56 36.9 C 89 20 122/60 92 06/13/19 21:50 36.9 C 89 20 122/60 92 06/13/19 2
--- NOTE | 2019-06-14 18:10 | PM.PNNEP ---
Progress Note: A&P Assessment and Plan (1) Chronic kidney disease, stage 4 (severe): Code(s): N18.4 - Chronic kidney disease, stage 4 (severe) Status: Chronic Assessment and Plan: relatively stable baseline creatinine runs ~ 2.5 - 3.0mg/dl in the last year or so due to hypertension and vascular disease creatinine lower than baseline recently (creatinine 2.0 today) - this may be a dilutional value secondary to fluid retention - her poor oral intake and loss of muscle mass may partly explain this as well not opposed to PRN or scheduled diuretics (2) Diverticular disease of intestine with perforation and abscess: Code(s): K57.80 - Diverticulitis of intestine, part unspecified, with perforation and abscess without bleeding Status: Acute Assessment and Plan: Surgery and Infectious Disease following. s/p percutaneous drain placement for abscess no need for antibiotics at this time (3) Hypertension: Qualifiers: Hypertension type: essential hypertension Qualified Code(s): I10 - Essential (primary) hypertension Code(s): I10 - Essential (primary) hypertension Status: Chronic Assessment and Plan: reasonable control at this time follow hemodynamics (4) SOB (shortness of breath): Code(s): R06.02 - Shortness of breath Status: Acute Assessment and Plan: suspect due to fluid overload and possible anemia getting PRN diuretics - not opposed to scheduled dosing wean oxygen as tolerated (5) Hyponatremia: Code(s): E87.1 - Hypo-osmolality and hyponatremia Status: Acute Assessment and Plan: mainly due to renal dysfunction and possibly fluid retention started on fluid restriction follow trend of sodium (6) Chronic anemia: Code(s): D64.9 - Anemia, unspecified Status: Acute Assessment and Plan: multifactorial etiology: - previous JINA - known CKD - acute illness/inflammation - blood loss? on Epogen (gets as an outpatient as well) follow trend of H/H (7) Generalized weakness: Code(s): R53.1 - Weakness Status: Acute Assessment and Plan: due to acute illness and multiple hospitalizations PT/OT as tolerated Will continue to follow Subjective Date/time seen: 06/14/19 18:10 Sleeping comfortably at the time of my visit; appetite remains poor and has some shortness of breath worsened with exertional activities; no other apparent complaints aside from weakness. Exam Narrative: Exam Narrative: General: WD/WN female in NAD Heart: normal S1 and S2; no rub Lungs: clear to auscultation Abdomen: soft, nontender, nondistended, positive bowel sounds Extremities: no cyanosis or clubbing; trace edema Skin: warm and dry Objective Data Vital Signs Vital Signs: Vital Signs Temp Pulse Resp BP Pulse Ox 06/14/19 15:24 94 06/14/19 14:00 36.6 C 94 16 144/78 H 100 06/14/19 11:20 137/77 06/14/19 11:15 134/77 06/14/19 06:51 36.5 C 88 18 92 06/14/19 02:20 90 18 06/13/19 23:11 36.4 C 93 16 137/66 93 06/13/19 22:41 36.8 C 93 18 135/80 93 06/13/19 22:11 36.6 C 87 18 121/76 94 06/13/19 21:56 36.9 C 89 20 122/60 92 06/13/19 21:50 36.9 C 89 20 122/60 92 06/13/19 20:56 36.9 C 96 18 139/76 95 06/13/19 20:55 36.9 C 96 18 139/76 95 06/13/19 20:54 93 06/13/19 20:40 36.8 C 93 18 135/80 93 06/13/19 20:18 103 H 18 06/13/19 20:08 100 18 Intake/Output Intake/Output: Intake & Output 06/11/19 06/12/19 06/13/19 06/14/19 22:59 22:59 23:59 23:59 Intake Total 0 Output Total 1050 Balance -1050 Meds/Results Medications: Active Medications Generic Name Dose Route Start Last Admin Trade Name Freq PRN Reason Stop Dose Admin Albuterol 2.5 mg 06/13/19 15:16 06/14/19 02:20 Albuterol Sulf Neb 2.5mg/0.5ml INHALATION 2.5 mg
--- NOTE | 2019-06-14 18:21 | PC.NURSE ---
On 06/14/19, the cyn, [COOKIE Baltazar], provided care and completed [facility] documentation on this patient. I have reviewed her documentation and agree with the findings.
[2019-06-14] MEDS: FLUTICASONE PROPIONATE 0.05% NA SPR 16 GM BTL (*BKC) 2 SPRAY NASAL (21:30)
[2019-06-15] VITALS (14 sets, daily range): BP systolic 85–148; BP diastolic 48–87; PULSE 74–90; RESP 16–32; TEMP 35.9–36.9; O2SAT 99–100
[2019-06-15 05:11] LABS: Hematocrit 23.2 % (37.0-47.0); Hemoglobin 7.5 g/dL (12.0-15.0); Immature Platelet Fraction Pct 5.2 % (0.9-11.2); Mean Corpuscular HGB Conc 32.3 g/dl (32-36); Mean Corpuscular Hemoglobin 29.6 pg (26-34); Mean Corpuscular Volume 91.7 fl (80-100); Red Blood Count 2.53 M/mm3 (4.2-5.4); Red Cell Distribution Width 17.1 % (11.5-14.5); White Blood Count 3.6 K/mm3 (4.5-10.0)
[2019-06-15 05:23] LABS: Blood Urea Nitrogen 36 mg/dL (7-17); CRP 2.6 mg/dL (<1.0); Carbon Dioxide 23 mmol/L (22-30); Chloride 99 mmol/L (98-107); Estimated CRCL calculation 21 ml/min; Estimated Glomerular Filt Rate 26; Glucose 84 mg/dL (65-105); Potassium 4.1 mmol/L (3.4-5.0); Sodium 129 mmol/L (137-145)
[2019-06-15 05:26] LABS: Platelet Count Result 8 k/mm3 (150-375)
[2019-06-15] MEDS: SODIUM CHLORIDE 0.9% IV 250 ML 30 ML IV CONT (06:28)
[2019-06-15 07:48] LABS: Creatinine Urine 17.3 mg/dL
[2019-06-15] MEDS: carvediloL 25 MG TABLET PO ×2 (07:51→21:33)
[2019-06-15] MEDS: VITAMIN B COMPLEX CAPSULE 1 CAP PO (07:51)
[2019-06-15] MEDS: CHOLECALCIFEROL 1,000 UNIT TABLET 1000 UNITS PO (07:51)
[2019-06-15] MEDS: MONTELUKAST SODIUM 10 MG TABLET PO (07:51)
[2019-06-15] MEDS: allopurinoL 100 MG TABLET PO ×2 (07:51→21:33)
[2019-06-15] MEDS: levETIRAcetam 250 MG TABLET PO ×2 (07:51→21:32)
[2019-06-15] MEDS: BUMETANIDE INJ 1 MG/4 ML VIAL 2 MG IV PUSH ×2 (07:52→17:57)
[2019-06-15 08:00] LABS: Creatinine 24 Hour Urine 0.3 gm/24 (0.8-1.8); Total Volume 24 Hour Urine 2000 ml
[2019-06-15] MEDS: FUROSEMIDE INJ 40 MG/4 ML VIAL 20 MG IV PUSH (09:30)
--- NOTE | 2019-06-15 10:28 | P.PNNP_ITS ---
Progress Note: A&P Assessment and Plan (1) Chronic kidney disease, stage 4 (severe): Code(s): N18.4 - Chronic kidney disease, stage 4 (severe) Status: Chronic Assessment and Plan: * creatinine better than baseline * baseline creatinine runs ~ 2.5 - 3.0mg/dl in the last year or so * due to hypertension and vascular disease * creatinine lower than baseline recently (creatinine 1.9 today) - this may be a dilutional value secondary to fluid retention - her poor oral intake and loss of muscle mass may partly explain this as well * not opposed to PRN or scheduled diuretics (2) Diverticular disease of intestine with perforation and abscess: Code(s): K57.80 - Diverticulitis of intestine, part unspecified, with perforation and abscess without bleeding Status: Acute Assessment and Plan: * Surgery and Infectious Disease following. * s/p percutaneous drain placement for abscess * no need for antibiotics at this time (3) Hypertension: Qualifiers: Hypertension type: essential hypertension Qualified Code(s): I10 - Essential (primary) hypertension Code(s): I10 - Essential (primary) hypertension Status: Chronic Assessment and Plan: * reasonable control at this time * follow hemodynamics (4) SOB (shortness of breath): Code(s): R06.02 - Shortness of breath Status: Acute Assessment and Plan: * suspect due to fluid overload and possible anemia * getting PRN diuretics - not opposed to scheduled dosing * wean oxygen as tolerated (5) Hyponatremia: Code(s): E87.1 - Hypo-osmolality and hyponatremia Status: Acute Assessment and Plan: * mainly due to renal dysfunction and possibly fluid retention * started on fluid restriction * follow trend of sodium (6) Chronic anemia: Code(s): D64.9 - Anemia, unspecified Status: Acute Assessment and Plan: * multifactorial etiology: - previous JINA - known CKD - acute illness/inflammation - blood loss? * on Epogen (gets as an outpatient as well) * follow trend of H/H (7) Generalized weakness: Code(s): R53.1 - Weakness Status: Acute Assessment and Plan: * due to acute illness and multiple hospitalizations * PT/OT as tolerated Will continue to follow Subjective Date/time seen: 06/15/19 10:28 Good diuresis with IV lasix dosing yesterday; however, still with on/off shortness of breath; still feels weak in general but no acute distress. Exam Narrative: Exam Narrative: General: WD/WN female in NAD Heart: normal S1 and S2; no rub Lungs: coarse with decreased breath sounds at bases Abdomen: soft, nontender, nondistended, positive bowel sounds Extremities: no cyanosis or clubbing; trace - 1+ edema Skin: warm and intact Objective Data Vital Signs Vital Signs: Vital Signs Temp Pulse Resp BP Pulse Ox 06/15/19 10:18 36.2 C L 76 18 121/63 100 06/15/19 09:17 36.3 C L 83 20 85/48 L 100 06/15/19 08:12 36.7 C 90 28 H 119/64 100 06/15/19 07:56 36.6 C 86 32 H 123/72 100 06/15/19 07:44 35.9 C L 87 16 121/69 100 06/15/19 05:56 36.3 C L 86 20 129/67 99 06/14/19 22:00 36.1 C L 92 20 132/76 100 06/14/19 21:33 36.1 C L 83 20 147/75 H 100 06/14/19 21:32 92 06/14/19 20:00 36.1 C L 89 20 146/83 H 1
--- NOTE | 2019-06-15 10:28 | PM.PNNEP ---
Progress Note: A&P Assessment and Plan (1) Chronic kidney disease, stage 4 (severe): Code(s): N18.4 - Chronic kidney disease, stage 4 (severe) Status: Chronic Assessment and Plan: creatinine better than baseline baseline creatinine runs ~ 2.5 - 3.0mg/dl in the last year or so due to hypertension and vascular disease creatinine lower than baseline recently (creatinine 1.9 today) - this may be a dilutional value secondary to fluid retention - her poor oral intake and loss of muscle mass may partly explain this as well not opposed to PRN or scheduled diuretics (2) Diverticular disease of intestine with perforation and abscess: Code(s): K57.80 - Diverticulitis of intestine, part unspecified, with perforation and abscess without bleeding Status: Acute Assessment and Plan: Surgery and Infectious Disease following. s/p percutaneous drain placement for abscess no need for antibiotics at this time (3) Hypertension: Qualifiers: Hypertension type: essential hypertension Qualified Code(s): I10 - Essential (primary) hypertension Code(s): I10 - Essential (primary) hypertension Status: Chronic Assessment and Plan: reasonable control at this time follow hemodynamics (4) SOB (shortness of breath): Code(s): R06.02 - Shortness of breath Status: Acute Assessment and Plan: suspect due to fluid overload and possible anemia getting PRN diuretics - not opposed to scheduled dosing wean oxygen as tolerated (5) Hyponatremia: Code(s): E87.1 - Hypo-osmolality and hyponatremia Status: Acute Assessment and Plan: mainly due to renal dysfunction and possibly fluid retention started on fluid restriction follow trend of sodium (6) Chronic anemia: Code(s): D64.9 - Anemia, unspecified Status: Acute Assessment and Plan: multifactorial etiology: - previous JINA - known CKD - acute illness/inflammation - blood loss? on Epogen (gets as an outpatient as well) follow trend of H/H (7) Generalized weakness: Code(s): R53.1 - Weakness Status: Acute Assessment and Plan: due to acute illness and multiple hospitalizations PT/OT as tolerated Will continue to follow Subjective Date/time seen: 06/15/19 10:28 Good diuresis with IV lasix dosing yesterday; however, still with on/off shortness of breath; still feels weak in general but no acute distress. Exam Narrative: Exam Narrative: General: WD/WN female in NAD Heart: normal S1 and S2; no rub Lungs: coarse with decreased breath sounds at bases Abdomen: soft, nontender, nondistended, positive bowel sounds Extremities: no cyanosis or clubbing; trace - 1+ edema Skin: warm and intact Objective Data Vital Signs Vital Signs: Vital Signs Temp Pulse Resp BP Pulse Ox 06/15/19 10:18 36.2 C L 76 18 121/63 100 06/15/19 09:17 36.3 C L 83 20 85/48 L 100 06/15/19 08:12 36.7 C 90 28 H 119/64 100 06/15/19 07:56 36.6 C 86 32 H 123/72 100 06/15/19 07:44 35.9 C L 87 16 121/69 100 06/15/19 05:56 36.3 C L 86 20 129/67 99 06/14/19 22:00 36.1 C L 92 20 132/76 100 06/14/19 21:33 36.1 C L 83 20 147/75 H 100 06/14/19 21:32 92 06/14/19 20:00 36.1 C L 89 20 146/83 H 100 06/14/19 15:24 94 06/14/19 14:00 36.6 C 94 16 144/78 H 100 06/14/19 11:20 137/77 06/14/19 11:15 134/77 Intake/Output Intake/Output: Intake & Output 06/12/19 06/13/19 06/14/19 06/15/19 22:59 23:59 23:59 23:59 Intake Total 270 360 Output Total 242 800 Balance -0720 -097 Meds/Results Medications: Active Medications Generic Name Dose Route Start Last Admin Trade Name Freq PRN Reason Stop Dose Admin Albuterol 2.5 mg 06/13/19 15:16 06/14/19 02:20 Albuterol Sulf Neb 2.5mg/0.5ml INHALATION 2.5 mg Q6HRT PRN Administration Mira
--- NOTE | 2019-06-15 11:29 | PC.NURSE ---
1129-Patient to Xray per bed.
[2019-06-15] MEDS: SODIUM CHLORIDE 0.9% IV 250 ML 100 ML IV CONT (12:00)
[2019-06-15 13:09] LABS: Collection Time Urine 24 HOURS
[2019-06-15 13:10] LABS: Creatinine Clearance Urine 12.8 ml/min (75-125); Creatinine Urine 17.3 mg/dL; Patient Weight 155 Lbs; Total Volume 24 Hour Urine 2000 ml
[2019-06-15] MEDS: ALBUTEROL SULFATE NEB 2.5 MG/0.5 ML INH INHALATION (13:54)
--- NOTE | 2019-06-15 15:02 | P.PNIM_ITS ---
Progress Note: A&P Assessment and Plan (1) Dyspnea: Qualifiers: Dyspnea type: shortness of breath Qualified Code(s): R06.02 - Shortness of breath Code(s): R06.00 - Dyspnea, unspecified Status: Acute Assessment and Plan: * Due to CHF, acute on chronic diastolic * Improved after diuresis 655ml 06/11 * Repeat furosemide 06/12, fluid restriction * Echo with moderate , NL LVEF, diastolic dysfuntion * Continue furosemide IV daily 20 mg (2) URI (upper respiratory infection): Qualifiers: URI type: unspecified URI Qualified Code(s): J06.9 - Acute upper respiratory infection, unspecified Code(s): J06.9 - Acute upper respiratory infection, unspecified Status: Acute Assessment and Plan: * Symptomatic treatment (3) Unresponsive episode: Code(s): R41.89 - Other symptoms and signs involving cognitive functions and awareness Status: Acute Assessment and Plan: * C/w seizure with postictal state. * Currently on Keppra 250mg q 12 h w/o recurrence. (4) Diverticular disease of intestine with perforation and abscess: Code(s): K57.80 - Diverticulitis of intestine, part unspecified, with perforation and abscess without bleeding Status: Acute Assessment and Plan: * CT shows worsening * Platelets 3/, IR inserted drain 3/ * Draining serosanguinous fluid, minimal amount (5) Chronic anemia: Code(s): D64.9 - Anemia, unspecified Status: Acute Assessment and Plan: * Continue with Epogen MWF as ordered. * Known to have pancytopenia and had a bone marrow biopsy in 2014 that was unremarkable. * 06/12 platelets 13K, 16K; transfuse 2 U pheresed platelets * 06/13 platelets 23K * / platelets 8 K, 2 more units of pheresed platelets today (6) Right knee pain: Qualifiers: Chronicity: acute Qualified Code(s): M25.561 - Pain in right knee Code(s): M25.561 - Pain in right knee Status: Acute Assessment and Plan: * Likely due to fall at facility * PT/OT * Monitor progress (7) Edema: Qualifiers: Edema type: unspecified Qualified Code(s): R60.9 - Edema, unspecified Code(s): R60.9 - Edema, unspecified Status: Acute Assessment and Plan: * Continue with lamin wraps to bilateral lower extremities. (8) Generalized weakness: Code(s): R53.1 - Weakness Status: Acute Assessment and Plan: * PT/OT (9) Chronic kidney disease, stage 4 (severe): Code(s): N18.4 - Chronic kidney disease, stage 4 (severe) Status: Chronic Assessment and Plan: * Continue to monitor * Avoid nephrotoxic drugs * Renal dose meds * 06/14, creatinine 1.9 which is actually better than at baseline (10) Hyponatremia: Code(s): E87.1 - Hypo-osmolality and hyponatremia Status: Acute Assessment and Plan: * Chronic and relatively stable * Urine Na 49 on 05/26/2019 * Fluid restriction * F/u lab, still 129 today 06/14 (11) Hypertension: Qualifiers: Hypertension type: essential hypertension Qualified Code(s): I10 - Essential (primary) hypertension Code(s): I10 - Essential (primary) hypertension Status: Chronic Assessment and Plan: * Hold meds clonidine but have restarted Coreg Subjective Date/time seen: 06/15/19 15:02 Interval history: Date of visit 06/14. 78-year-old white female myelodysplasia, diverticular abscess, admitted with possible seizure. Now on Keppra and has developed acute on chronic
--- NOTE | 2019-06-15 15:02 | PM.IMPN ---
Progress Note: A&P Assessment and Plan (1) Dyspnea: Qualifiers: Dyspnea type: shortness of breath Qualified Code(s): R06.02 - Shortness of breath Code(s): R06.00 - Dyspnea, unspecified Status: Acute Assessment and Plan: Due to CHF, acute on chronic diastolic Improved after diuresis 655ml 06/11 Repeat furosemide 06/12, fluid restriction Echo with moderate , NL LVEF, diastolic dysfuntion Continue furosemide IV daily 20 mg (2) URI (upper respiratory infection): Qualifiers: URI type: unspecified URI Qualified Code(s): J06.9 - Acute upper respiratory infection, unspecified Code(s): J06.9 - Acute upper respiratory infection, unspecified Status: Acute Assessment and Plan: Symptomatic treatment (3) Unresponsive episode: Code(s): R41.89 - Other symptoms and signs involving cognitive functions and awareness Status: Acute Assessment and Plan: C/w seizure with postictal state. Currently on Keppra 250mg q 12 h w/o recurrence. (4) Diverticular disease of intestine with perforation and abscess: Code(s): K57.80 - Diverticulitis of intestine, part unspecified, with perforation and abscess without bleeding Status: Acute Assessment and Plan: CT shows worsening Platelets 3/4, IR inserted drain 3/4 Draining serosanguinous fluid, minimal amount (5) Chronic anemia: Code(s): D64.9 - Anemia, unspecified Status: Acute Assessment and Plan: Continue with Epogen MWF as ordered. Known to have pancytopenia and had a bone marrow biopsy in 2014 that was unremarkable. 06/12 platelets 13K, 16K; transfuse 2 U pheresed platelets 06/13 platelets 23K 06/14 platelets 8 K, 2 more units of pheresed platelets today (6) Right knee pain: Qualifiers: Chronicity: acute Qualified Code(s): M25.561 - Pain in right knee Code(s): M25.561 - Pain in right knee Status: Acute Assessment and Plan: Likely due to fall at facility PT/OT Monitor progress (7) Edema: Qualifiers: Edema type: unspecified Qualified Code(s): R60.9 - Edema, unspecified Code(s): R60.9 - Edema, unspecified Status: Acute Assessment and Plan: Continue with lamin wraps to bilateral lower extremities. (8) Generalized weakness: Code(s): R53.1 - Weakness Status: Acute Assessment and Plan: PT/OT (9) Chronic kidney disease, stage 4 (severe): Code(s): N18.4 - Chronic kidney disease, stage 4 (severe) Status: Chronic Assessment and Plan: Continue to monitor Avoid nephrotoxic drugs Renal dose meds 06/14, creatinine 1.9 which is actually better than at baseline (10) Hyponatremia: Code(s): E87.1 - Hypo-osmolality and hyponatremia Status: Acute Assessment and Plan: Chronic and relatively stable Urine Na 49 on 05/26/2019 Fluid restriction F/u lab, still 129 today 06/14 (11) Hypertension: Qualifiers: Hypertension type: essential hypertension Qualified Code(s): I10 - Essential (primary) hypertension Code(s): I10 - Essential (primary) hypertension Status: Chronic Assessment and Plan: Hold meds clonidine but have restarted Coreg Subjective Date/time seen: 06/15/19 15:02 Interval history: Date of visit 06/14. 78-year-old white female myelodysplasia, diverticular abscess, admitted with possible seizure. Now on Keppra and has developed acute on chronic diastolic heart failure. Receiving platelets for thrombocytopenia with her myelodysplasia. Still some short of breath today and states the breathing treatments help Exam Narrative: Exam Narrative: Blood pressure 140/70 pulse is 86 regular afebrile HEENT: PERRL, sclerae nonicteric, NECK: No JVD CHEST: Decreased BS bases HEART: NL S1/S2, regular, 3/6 PAYAL ABDOMEN: BS+, soft, nontender, no mass EXTREMITIES: Trace leg edema NEUROLOGIC: CN intact and symm
--- NOTE | 2019-06-15 16:28 | PM.PNGS ---
Progress Note: A&P Assessment and Plan (1) Diverticular disease of intestine with perforation and abscess: Code(s): K57.80 - Diverticulitis of intestine, part unspecified, with perforation and abscess without bleeding Status: Acute Assessment and Plan: Abscess well-drained with the diverticulitis seems well controlled. No longer on antibiotics. Continue perc. drain to suction. Tolerating a low fiber diet. Continues to have added medical issues that increase her risk for surgery as noted below. She also continues to decline in overall strength, which is also concerning when considering putting her through an extensive surgery. (2) Thrombocytopenia: Code(s): D69.6 - Thrombocytopenia, unspecified Status: Acute Assessment and Plan: Platelets 8,000 today. 2 units of platelets ordered to be transfused today. Thought to be due to MDS. Seen by Dr. Morillo on previous hospitalization for the thrombocytopenia. (3) Chronic anemia: Code(s): D64.9 - Anemia, unspecified Status: Acute Assessment and Plan: Stable (4) Neutropenia: Code(s): D70.9 - Neutropenia, unspecified Status: Acute (5) SOB (shortness of breath): Code(s): R06.02 - Shortness of breath Status: Acute Assessment and Plan: [place] to be due to CHF. Continue with diuresis per the Hospitalist and she is currently on a fluid restriction. (6) Chronic kidney disease, stage 4 (severe): Code(s): N18.4 - Chronic kidney disease, stage 4 (severe) Status: Chronic Assessment and Plan: Creatinine down to 1.9. Nephrology following. Additional Plan Pancreatic lesion noted on CT. Plan for further work-up once more stable. Discussed plan of care with Dr. Lerner. Subjective Subjective Date/Time Seen: 06/15/19 11:28 Patient reports: bowel movement and shortness of breath Interval history: Patient seen and examined. Reports still feeling short of breath today but similar to yesterday. Reports BM today and still tolerating her diet. Does report one episode of RLQ abdominal pain today that resolved spontaneously. No complaints of nausea, vomiting, or bloating. No other complaints at this time. Review of Systems Review of Systems: All systems reviewed & are unremarkable except as noted in HPI and below Exam Const: General: no acute distress, awake, ill appearing acutely and tired appearing Orientation/consciousness: patient oriented x3 GI: Inspection: other (mild distention, unchanged) GI Palp: Yes Soft to palpation, Yes Tenderness to palpation present (GI) (RLQ, RUQ), No Guarding due to palpation present (GI), No Rigid due to palpation and No Rebound tenderness present Auscultation: normal bowel sounds Other: RLQ percutaneous abscess drain with minimal purulent mckinnon/pink drainage in bag Urinary Catheter: Urinary Catheter: patent and draining and urine clear Skin: General skin exam: normal color Neuro: General: patient oriented x3 and moves all extremities Extrem: General: edema bilateral (mild, pitting) Psych: Mental Status: mental status grossly normal Speech and movement: Normal speech and movement present Affect: normal affect Attitude: cooperative Thought process: Normal thought process present Objective Data Vital Signs Vital Signs: Vital Signs - 24 hr 06/14/19 20:00 06/14/19 21:32 06/14/19 21:33 Temperature 36.1 C L 36.1 C L Pulse Rate 89 92 83 Respiratory Rate 20 20 Blood Pressure 146/83 H 147/75 H Pulse Oximetry 100 100 06/14/19 22:00 06/15/19 05:56 06/15/19 07:44 Temperature 36.1 C L 36.3 C L 35.9 C L Pulse Rate 92 86 87 Respiratory Rate 20 20 16 Blood Pressure 132/76 129/67 121/69 Pulse Oximetry 100 99 100 06/15/19 07:56 06/15/19 08:12 06/15/19 09:17 Temperature 36.6 C 36.7 C 36.3 C L Pulse Rate 86 90 83 Respiratory Rate 32 H 28 H 20 Blood Pressure 123/72 119/64 85/48 L Pulse Oximetry 100 100 100 06/15/19 10:18 06/15/19 10:50 06/14
--- NOTE | 2019-06-15 18:59 | PC.NURSE ---
On 06/15/19, the Delaney addison RN, provided care and [facility]. I have reviewed her documentation and agree with the findings.
[2019-06-15] MEDS: FLUTICASONE PROPIONATE 0.05% NA SPR 16 GM BTL (*BKC) 2 SPRAY NASAL (21:32)
[2019-06-16] VITALS (7 sets, daily range): BP systolic 136–139; BP diastolic 62–77; PULSE 83–89; RESP 16–24; TEMP 36.2–36.7; O2SAT 93–100
[2019-06-16 05:57] LABS: Basophils Percent Auto 0.3 % (0.2-1.2); Eosinophils Percent Auto 1.3 % (0-4.4); Hematocrit 23.9 % (37.0-47.0); Hemoglobin 7.5 g/dL (12.0-15.0); Immature Granulocyte Absolute 0.01 K/mm3 (0.00-0.031); Immature Granulocyte Percent A 0.3 % (0-0.5); Immature Platelet Fraction Pct 3.2 % (0.9-11.2); Lymphocytes Absolute Auto 0.77 K/mm3 (0.9-3.2); Lymphocytes Percent Auto 25.5 % (18.3-44.2); Mean Corpuscular HGB Conc 31.4 g/dl (32-36); Mean Corpuscular Hemoglobin 29.6 pg (26-34); Mean Corpuscular Volume 94.5 fl (80-100); Mean Platelet Volume 10.3 fl (7.4-10.4); Monocytes Absolute Auto 0.3 K/mm3 (0.1-0.6); Monocytes Percent Auto 8.3 % (2.6-8.5); Neutrophils Absolute Auto 1.9 K/mm3 (1.3-6.7); Neutrophils Percent Auto 64.3 % (45.5-73.1); Platelet Count Result 30 k/mm3 (150-375); Red Blood Count 2.53 M/mm3 (4.2-5.4); Red Cell Distribution Width 17.3 % (11.5-14.5)
[2019-06-16 06:03] LABS: Blood Urea Nitrogen 34 mg/dL (7-17); Carbon Dioxide 26 mmol/L (22-30); Chloride 98 mmol/L (98-107); Estimated CRCL calculation 20 ml/min; Estimated Glomerular Filt Rate 24; Glucose 84 mg/dL (65-105); Potassium 3.5 mmol/L (3.4-5.0); Sodium 128 mmol/L (137-145)
[2019-06-16 07:06] LABS: Platelet Estimate Adequate (Adequate)
[2019-06-16 07:07] LABS: Anisocytosis 1+ (NORMAL); Hypochromasia 1+ (NORMAL); Ovalocytes 1+ (NORMAL); Poikilocytosis 1+ (NORMAL); Target Cells 1+ (NORMAL)
[2019-06-16] MEDS: FUROSEMIDE INJ 40 MG/4 ML VIAL 20 MG IV PUSH ×2 (08:14→16:18)
[2019-06-16] MEDS: BUMETANIDE INJ 1 MG/4 ML VIAL 2 MG IV PUSH ×2 (08:15→16:54)
[2019-06-16] MEDS: EPOETIN ALFA 10,000 UNITS/ML VIAL 10000 UNITS SUB-Q ×2 (08:16→16:20)
[2019-06-16] MEDS: VITAMIN B COMPLEX CAPSULE 1 CAP PO (08:19)
[2019-06-16] MEDS: carvediloL 25 MG TABLET PO ×2 (08:19→21:41)
[2019-06-16] MEDS: CHOLECALCIFEROL 1,000 UNIT TABLET 1000 UNITS PO (08:19)
[2019-06-16] MEDS: allopurinoL 100 MG TABLET PO ×2 (08:19→21:41)
[2019-06-16] MEDS: MONTELUKAST SODIUM 10 MG TABLET PO (08:19)
[2019-06-16] MEDS: levETIRAcetam 250 MG TABLET PO ×2 (08:19→21:40)
[2019-06-16] MEDS: GUAIFENESIN/DEXTROMETHORPHAN 10 ML UDC PO (08:21)
--- NOTE | 2019-06-16 12:08 | PM.PNGS ---
Progress Note: A&P Assessment and Plan (1) Diverticular disease of intestine with perforation and abscess: Code(s): K57.80 - Diverticulitis of intestine, part unspecified, with perforation and abscess without bleeding Status: Acute Assessment and Plan: The patient is now having new complaints of abdominal pain. Will discuss with Dr. Lerner who will also be evaluating the patient separately today. Continue perc. drain to suction. Tolerating a low fiber diet. (2) Thrombocytopenia: Code(s): D69.6 - Thrombocytopenia, unspecified Status: Acute Assessment and Plan: Platelets up to 30,000 today with 2 units of FFP given yesterday. Thought to be due to MDS. Seen by Hematology/Oncology on previous hospitalization. (3) Chronic anemia: Code(s): D64.9 - Anemia, unspecified Status: Acute Assessment and Plan: Stable (4) Neutropenia: Code(s): D70.9 - Neutropenia, unspecified Status: Acute (5) SOB (shortness of breath): Code(s): R06.02 - Shortness of breath Status: Acute (6) Chronic kidney disease, stage 4 (severe): Code(s): N18.4 - Chronic kidney disease, stage 4 (severe) Status: Chronic Assessment and Plan: Creatinine 2.0. Nephrology following. Subjective Subjective Date/Time Seen: 06/16/19 12:08 Patient reports: no new complaints and bowel movement Interval history: Patient reports feeling about the same today without new complaints. She has gotten up to the chair today and did take a few steps with physical therapy to transfer. Reports tolerating a diet without nausea, vomiting, or bloating. Reports having some mild lower abdominal cramping pain that is intermittent through the day and alleviated spontaneously. Denies any abdominal pain now. Reports her shortness of breath is about the same as yesterday. Review of Systems Review of Systems: All systems reviewed & are unremarkable except as noted in HPI and below Exam Const: General: no acute distress and tired appearing Orientation/consciousness: patient oriented x3 GI: Inspection: other (mild distention, unchanged) GI Palp: Yes Soft to palpation, Yes Tenderness to palpation present (GI) (RUQ), No Guarding due to palpation present (GI) and No Rebound tenderness present Auscultation: normal bowel sounds Other: RLQ percutaneous abscess drain with minimal purulent mckinnon/pink drainage in bag Neuro: General: moves all extremities and no focal motor deficits Gait exam (Neuro): Unable to assess gait Extrem: General: edema bilateral (mild, pitting) Psych: Mental Status: mental status grossly normal Attitude: cooperative Thought process: Normal thought process present Objective Data Vital Signs Vital Signs: Vital Signs - 24 hr 06/15/19 12:32 06/15/19 12:47 06/15/19 13:54 Temperature 36.3 C L 36.3 C L Pulse Rate 81 85 84 Respiratory Rate 25 H 28 H 20 Blood Pressure 139/70 139/71 Pulse Oximetry 100 100 06/15/19 14:00 06/15/19 15:06 06/15/19 21:33 Temperature 36.1 C L 36.3 C L Pulse Rate 89 85 74 Respiratory Rate 24 H 26 H Blood Pressure 141/70 H 148/73 H Pulse Oximetry 100 100 06/15/19 22:00 06/16/19 03:11 06/16/19 06:00 Temperature 36.9 C 36.7 C Pulse Rate 90 84 Respiratory Rate 20 16 Blood Pressure 132/87 139/62 Pulse Oximetry 100 95 100 06/16/19 08:00 Temperature Pulse Rate 84 Respiratory Rate 16 Blood Pressure Pulse Oximetry 100 Intake/Output Intake/Output: Intake & Output 06/13/19 06/14/19 06/15/19 06/16/19 23:59 23:59 23:59 23:59 Intake Total 270 1236 360 Output Total 4845 7641 600 [facility] -2155 -1265 -240 Meds/Results Medications: Active Medications Generic Name Dose Route Start Last Admin Trade Name Freq PRN Reason Stop Dose Admin Albuterol 2.5 mg 06/13/19 15:16 06/15/19 13:54 Albuterol Sulf Neb 2.5mg/0.5ml INHALATION 2.5 mg Q6HRT PRN Administration Shortness Of Breath Or Wheezing Al
--- NOTE | 2019-06-16 14:13 | WPDONCCN ---
Assessment and Plan Assessment and plan (1) MDS (myelodysplastic syndrome), low grade: Code(s): D46.20 - Refractory anemia with excess of blasts, unspecified Status: Acute Assessment and Plan: Her current cytopenias are c/w worsening bone marrow function Because she is in hospital, i have very limited medical options to utilize in trying to improve her plt count for possible surgery and discharge I cannot use steroids due to increase risk of recurrent abscess infection and another perforation of her diverticulosis. Therefore, I will proceed with IVIG at 500 mg/kg today and give lasix to prevent CHF Repeat CBC in AM She needs two days of stable plt count > 20k before she can be d/c to SNF or rehab Outpatient management for MDS has more options with direct stimulatory drugs for platelets I had a detailed discussion with Dr. Lerner about surgery. If I am unable to stabilize her platelet count, she may benefited by transfer to [facility] with more medical options for her MDS than we have here. Dr. Lerner agrees with this approach if cytopenias become worse. In addition, I will give extra Epogen dose for MDS to improve RBC (2) Thrombocytopenia: Code(s): D69.6 - Thrombocytopenia, unspecified Status: Acute Assessment and Plan: as above HPI Data of Consult Date/Time: 06/16/19 14:13 Requesting Physician: Jerrell Guzman MD Primary Care Provider: Susie Mobley MD Consult Narrative Narrative: Grecia Patterson is a 78 year old female H/o anemia of CKD and MDS admitted for perforated diverticula and resultant abscess underwent perc drain and IV Ab patient slow in recovering her strength this past week fluctuating cytopenias ; mainly the platelet count requiring transfusion daily surgical repair has been on hold due to severe TCP Today, first time patient is out of bed and po intake is increasing Review of Systems Review of Systems: All systems reviewed & are unremarkable except as noted in HPI and below Constitutional: Constitutional: Denies anorexia, Reports fatigue, Denies fever(s), Reports malaise, Denies night sweats, Reports snoring, Reports weakness and Reports weight loss Eyes: Eyes: Denies blurry vision ENT: Denies dysphagia, Denies epistaxis, Denies mouth lesions, Denies mouth pain, Denies odynophagia, Denies disequilibrium and Denies sore throat Cardiovascular: Cardiovascular: Denies chest pain, Denies leg edema and Reports dyspnea on exertion Respiratory: Respiratory: Reports chest congestion, Reports cough, Reports dyspnea and Reports dyspnea on exertion Gastrointestinal: Gastrointestinal: Reports abdominal pain, Denies constipation, Denies dysphagia, Denies diarrhea, Denies nausea, Denies odynophagia and Denies vomiting Genitourinary: Genitourinary: Denies hematuria and Denies dysuria Musculoskeletal: Musculoskeletal: Denies myalgias, Reports arthralgias and Reports muscle weakness Integumentary/Breasts: Skin/Breast: Denies rash and Denies unusual bruising Neurologic: Denies confusion, Denies disequilibrium and Denies weakness Psychiatric: Psychiatric: Denies anxiety, Denies confusion and Denies depression Endocrine: Endocrine: Reports fatigue Hematologic/Lymphatic: Hematologic/Lymphatic: Denies easy bleeding, Reports easy bruising and Denies lymphadenopathy PMFSH Past Medical History Medical History (Updated 06/16/19 @ 14:21 by Vincenzo Pham DO) Acute on chronic blood loss anemia Breast cancer Carcinoma in situ, 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 Chronic anemia She is a patient of Dr. Telles at [facility]. A bone marrow biopsy done about 5 years ago was reportedly unremarkable. Most likely related to chronic renal failure. On Epogen Friday Chronic kidney disease, stage 4 (severe) Baseline creatinine around 3.0. Diverticulitis of colon with perforation Summer 2018, hospitalized at [facility]
--- NOTE | 2019-06-16 14:15 | P.PNIM_ITS ---
Progress Note: A&P Assessment and Plan (1) Dyspnea: Qualifiers: Dyspnea type: shortness of breath Qualified Code(s): R06.02 - Shortness of breath Code(s): R06.00 - Dyspnea, unspecified Status: Acute Assessment and Plan: * Due to CHF, acute on chronic diastolic * Improved after diuresis 655ml 06/11 * Repeat furosemide 06/12, fluid restriction * Echo with moderate , NL LVEF, diastolic dysfuntion * Continue bumex bid per nephrology (2) URI (upper respiratory infection): Qualifiers: URI type: unspecified URI Qualified Code(s): J06.9 - Acute upper respiratory infection, unspecified Code(s): J06.9 - Acute upper respiratory infection, unspecified Status: Acute Assessment and Plan: * Symptomatic treatment (3) Unresponsive episode: Code(s): R41.89 - Other symptoms and signs involving cognitive functions and awareness Status: Acute Assessment and Plan: * C/w seizure with postictal state. * Currently on Keppra 250mg q 12 h w/o recurrence. (4) Diverticular disease of intestine with perforation and abscess: Code(s): K57.80 - Diverticulitis of intestine, part unspecified, with perforation and abscess without bleeding Status: Acute Assessment and Plan: * CT shows worsening * Platelets 3/4, IR inserted drain 3/ * Draining serosanguinous fluid, minimal amount * Discussed with surgery and plan is to leave drain for now, possible repeat CT in future (5) Chronic anemia: Code(s): D64.9 - Anemia, unspecified Status: Acute Assessment and Plan: * Continue with Epogen MWF as ordered. * Known to have pancytopenia and had a bone marrow biopsy in 2014 that was unremarkable. * 06/12 platelets 13K, 16K; transfuse 2 U pheresed platelets * 06/13 platelets 23K * 06/14 platelets 8 K, 2 more units of pheresed platelets * 06/15 30K continue to monitor and opinion from Oncology again (6) Right knee pain: Qualifiers: Chronicity: acute Qualified Code(s): M25.561 - Pain in right knee Code(s): M25.561 - Pain in right knee Status: Acute Assessment and Plan: * Likely due to fall at facility * PT/OT * Monitor progress (7) Edema: Qualifiers: Edema type: unspecified Qualified Code(s): R60.9 - Edema, unspecified Code(s): R60.9 - Edema, unspecified Status: Acute Assessment and Plan: * Continue with lamin wraps to bilateral lower extremities. (8) Generalized weakness: Code(s): R53.1 - Weakness Status: Acute Assessment and Plan: * PT/OT (9) Chronic kidney disease, stage 4 (severe): Code(s): N18.4 - Chronic kidney disease, stage 4 (severe) Status: Chronic Assessment and Plan: * Continue to monitor * Avoid nephrotoxic drugs * Renal dose meds * 06/14, creatinine 1.9 which is actually better than at baseline * 06/15 2.0 (10) Hyponatremia: Code(s): E87.1 - Hypo-osmolality and hyponatremia Status: Acute Assessment and Plan: * Chronic and relatively stable * Urine Na 49 on 05/26/2019 * Fluid restriction * F/u lab, still 129 today 06/14 * 06/15 128 (11) Hypertension: Qualifiers: Hypertension type: essential hypertension Qualified Code(s): I10 - Essential (primary) hypertension Code(s): I10 - Essential (primary) hypertension Status: Chronic Assessment and Plan: * Hold clonidine and hydralazine but have restarted Coreg Subjective Date/time seen: 06/16/19
--- NOTE | 2019-06-16 14:15 | PM.IMPN ---
Progress Note: A&P Assessment and Plan (1) Dyspnea: Qualifiers: Dyspnea type: shortness of breath Qualified Code(s): R06.02 - Shortness of breath Code(s): R06.00 - Dyspnea, unspecified Status: Acute Assessment and Plan: Due to CHF, acute on chronic diastolic Improved after diuresis 655ml 06/11 Repeat furosemide 06/12, fluid restriction Echo with moderate , NL LVEF, diastolic dysfuntion Continue bumex bid per nephrology (2) URI (upper respiratory infection): Qualifiers: URI type: unspecified URI Qualified Code(s): J06.9 - Acute upper respiratory infection, unspecified Code(s): J06.9 - Acute upper respiratory infection, unspecified Status: Acute Assessment and Plan: Symptomatic treatment (3) Unresponsive episode: Code(s): R41.89 - Other symptoms and signs involving cognitive functions and awareness Status: Acute Assessment and Plan: C/w seizure with postictal state. Currently on Keppra 250mg q 12 h w/o recurrence. (4) Diverticular disease of intestine with perforation and abscess: Code(s): K57.80 - Diverticulitis of intestine, part unspecified, with perforation and abscess without bleeding Status: Acute Assessment and Plan: CT shows worsening Platelets 3/4, IR inserted drain 3/4 Draining serosanguinous fluid, minimal amount Discussed with surgery and plan is to leave drain for now, possible repeat CT in future (5) Chronic anemia: Code(s): D64.9 - Anemia, unspecified Status: Acute Assessment and Plan: Continue with Epogen MWF as ordered. Known to have pancytopenia and had a bone marrow biopsy in 2014 that was unremarkable. 06/12 platelets 13K, 16K; transfuse 2 U pheresed platelets 06/13 platelets 23K 06/14 platelets 8 K, 2 more units of pheresed platelets 06/15 30K continue to monitor and opinion from Oncology again (6) Right knee pain: Qualifiers: Chronicity: acute Qualified Code(s): M25.561 - Pain in right knee Code(s): M25.561 - Pain in right knee Status: Acute Assessment and Plan: Likely due to fall at facility PT/OT Monitor progress (7) Edema: Qualifiers: Edema type: unspecified Qualified Code(s): R60.9 - Edema, unspecified Code(s): R60.9 - Edema, unspecified Status: Acute Assessment and Plan: Continue with lmain wraps to bilateral lower extremities. (8) Generalized weakness: Code(s): R53.1 - Weakness Status: Acute Assessment and Plan: PT/OT (9) Chronic kidney disease, stage 4 (severe): Code(s): N18.4 - Chronic kidney disease, stage 4 (severe) Status: Chronic Assessment and Plan: Continue to monitor Avoid nephrotoxic drugs Renal dose meds 06/14, creatinine 1.9 which is actually better than at baseline 06/15 2.0 (10) Hyponatremia: Code(s): E87.1 - Hypo-osmolality and hyponatremia Status: Acute Assessment and Plan: Chronic and relatively stable Urine Na 49 on 05/26/2019 Fluid restriction F/u lab, still 129 today 06/14 06/15 128 (11) Hypertension: Qualifiers: Hypertension type: essential hypertension Qualified Code(s): I10 - Essential (primary) hypertension Code(s): I10 - Essential (primary) hypertension Status: Chronic Assessment and Plan: Hold clonidine and hydralazine but have restarted Coreg Subjective Date/time seen: 06/16/19 14:15 Interval history: Date of visit 06/15. 78-year-old white female myelodysplasia, diverticular abscess, admitted with possible seizure. Now on Keppra and has developed acute on chronic diastolic heart failure. Receiving platelets for thrombocytopenia with her myelodysplasia. Still some short of breath today and states the breathing treatments help and was up in chair . Exam Narrative: Exam Narrative: Blood pressure 136/60 pulse is 84 regular afebrile HEENT:
--- NOTE | 2019-06-16 14:43 | PM.PNGS ---
Progress Note: A&P Assessment and Plan (1) Diverticular disease of intestine with perforation and abscess: Code(s): K57.80 - Diverticulitis of intestine, part unspecified, with perforation and abscess without bleeding Status: Acute Assessment and Plan: I saw patient today and discussed further treatment in detail with her and her daughters. I also was able to discuss her current condition with Dr. Pham. She will need further stabilization of her platelets before being stable for any kind of surgical procedure. With the abscess drain in place, this should allow time for diverticulitis to resolve before deciding to proceed with surgery. If she can get the proper medication to improve her myelodysplastic syndrome, then within the next several weeks she may be at a safe level for a planned sigmoid colectomy with anastomosis. Since she is having some continued abdominal pain, I would like to get a repeat CT tomorrow to assess for any further abscess. The current drain that is in place has not been draining much at all anymore. Unfortunately, there were 2 abscesses that we were monitoring on the CT, and this could mean that the other abscess is still present. (2) MDS (myelodysplastic syndrome), low grade: Code(s): D46.20 - Refractory anemia with excess of blasts, unspecified Status: Acute Subjective Subjective Date/Time Seen: 06/16/19 14:43 Objective Data Vital Signs Vital Signs: Vital Signs - 24 hr 06/15/19 15:06 06/15/19 21:33 06/15/19 22:00 Temperature 36.3 C L 36.9 C Pulse Rate 85 74 90 Respiratory Rate 26 H 20 Blood Pressure 148/73 H 132/87 Pulse Oximetry 100 100 06/16/19 03:11 06/16/19 06:00 06/16/19 08:00 Temperature 36.7 C Pulse Rate 84 84 Respiratory Rate 16 16 Blood Pressure 139/62 Pulse Oximetry 95 100 100 06/16/19 14:00 Temperature 36.5 C Pulse Rate 83 Respiratory Rate 24 H Blood Pressure 136/65 Pulse Oximetry 100 Intake/Output Intake/Output: Intake & Output 06/13/19 06/14/19 06/15/19 06/16/19 23:59 23:59 23:59 23:59 Intake Total 270 1236 480 Output Total 8208 9486 600 Balance -2155 -1265 -120 Meds/Results Medications: Active Medications Generic Name Dose Route Start Last Admin Trade Name Freq PRN Reason Stop Dose Admin Acetaminophen 1,000 mg 06/16/19 14:30 Tylenol Tablet PO 06/16/19 14:31 ONCE ONE Albuterol 2.5 mg 06/13/19 15:16 06/15/19 13:54 Albuterol Sulf Neb 2.5mg/0.5ml INHALATION 2.5 mg Q6HRT PRN Administration Shortness Of Breath Or Wheezing Allopurinol 100 mg 06/08/19 21:00 06/16/19 08:19 Zyloprim PO 100 mg Q12HR LYLE Administration Bumetanide 2 mg 06/13/19 09:00 06/16/19 08:15 Bumex Inj IV PUSH 2 mg BID LYLE Administration Carvedilol 25 mg 06/08/19 21:00 06/16/19 08:19 Coreg PO 25 mg Q12HR LYLE Administration Diphenhydramine HCl 25 mg 06/16/19 14:30 Benadryl Cap PO 06/16/19 14:31 ONCE ONE Epoetin Nixon 10,000 units 06/11/19 09:00 06/16/19 08:16 Epogen SUB-Q 10,000 units [id number] LYLE Administration Epoetin Nixon 10,000 units 06/16/19 14:31 Epogen SUB-Q 06/16/19 14:32 ONCE ONE Fluticasone Propionate 2 spray 06/08/19 21:00 06/15/19 21:32 Flonase 0.05% Nasal [place]ro NASAL 2 spray HS LYLE Administration Furosemide 20 mg 06/16/19 14:29 Lasix Inj IV PUSH 06/16/19 14:30 ONCE ONE Guaifenesin/Dextromethorphan 10 ml 06/10/19 13:18 06/16/19 08:21 Robitussin-Dm Syrup PO 10 ml Q4H PRN Administration Cough Immune Globulin 35,250 gm in 352,500 mls @ 0 mls/hr 06/16/19 14:29 Gammagard Liquid 10% Vial IVPB 06/16/19 14:30 ONCE ONE Per Protocol Levetiracetam 250 mg 06/08/19 21:00 06/16/19 08:19 Keppra Tablet PO 250 mg Q12HR LYLE Administration Montelukast Sodium 10 mg 06/09/19 09:00 06/16/19 08:19 Singulair PO 10 mg DAILY LYLE Administration Neomycin/Polymyxin/Baci
--- NOTE | 2019-06-16 15:43 | PHAR ---
EPOGEN PT INFO SHEET SENT WITH 06/15 DOSE
[2019-06-16] MEDS: ACETAMINOPHEN 500 MG TABLET 1000 MG PO (16:27)
--- NOTE | 2019-06-16 17:32 | P.PNNP_ITS ---
Progress Note: A&P Assessment and Plan (1) Chronic kidney disease, stage 4 (severe): Code(s): N18.4 - Chronic kidney disease, stage 4 (severe) Status: Chronic Assessment and Plan: * creatinine better than baseline * baseline creatinine runs ~ 2.5 - 3.0mg/dl in the last year or so * due to hypertension and vascular disease * creatinine lower than baseline recently (creatinine 1.9 today) - this may be a dilutional value secondary to fluid retention - her poor oral intake and loss of muscle mass may partly explain this as well * not opposed to PRN or scheduled diuretics (2) Diverticular disease of intestine with perforation and abscess: Code(s): K57.80 - Diverticulitis of intestine, part unspecified, with perforation and abscess without bleeding Status: Acute Assessment and Plan: * Surgery and Infectious Disease following. * s/p percutaneous drain placement for abscess * no need for antibiotics at this time (3) Hypertension: Qualifiers: Hypertension type: essential hypertension Qualified Code(s): I10 - Essential (primary) hypertension Code(s): I10 - Essential (primary) hypertension Status: Chronic Assessment and Plan: * reasonable control at this time * follow hemodynamics (4) SOB (shortness of breath): Code(s): R06.02 - Shortness of breath Status: Acute Assessment and Plan: * suspect due to fluid overload and possible anemia * getting PRN diuretics - not opposed to scheduled dosing * wean oxygen as tolerated (5) Hyponatremia: Code(s): E87.1 - Hypo-osmolality and hyponatremia Status: Acute Assessment and Plan: * mainly due to renal dysfunction and possibly fluid retention * started on fluid restriction * follow trend of sodium (6) Chronic anemia: Code(s): D64.9 - Anemia, unspecified Status: Acute Assessment and Plan: * multifactorial etiology: - previous JINA - known CKD - acute illness/inflammation - blood loss? * on Epogen (gets as an outpatient as well) * follow trend of H/H (7) MDS (myelodysplastic syndrome), low grade: Code(s): D46.20 - Refractory anemia with excess of blasts, unspecified Status: Acute Assessment and Plan: * Hem/Onc recommendations noted * IVIG today * follow platelet count (8) Generalized weakness: Code(s): R53.1 - Weakness Status: Acute Assessment and Plan: * due to acute illness and multiple hospitalizations * PT/OT as tolerated Will continue to follow Subjective Date/time seen: 06/16/19 17:32 Seen by Hem/Onc and started on IVIG -- still feels weak and continues to have on/off shortness of breath; tolerating oral intake and working wth PT/OT as tolerated; some intermittent abdominal pain as well. Exam Narrative: Exam Narrative: General: WD/WN female in NAD Heart: normal S1 and S2; no rub Lungs: coarse with decreased breath sounds at bases Abdomen: soft, nontender, nondistended, positive bowel sounds Extremities: no cyanosis or clubbing; trace - 1+ edema Skin: warm and intact Objective Data Vital Signs Vital Signs: Vital Signs Temp Pulse Resp BP Pulse Ox 06/16/19 14:00 36.5 C 83 24 H 136/65 100 06/16/19 08:00 84 16 100 06/16/19 06:00 36.7 C 84 16 139/62 100 06/16/19 03:11 95
--- NOTE | 2019-06-16 17:32 | PM.PNNEP ---
Progress Note: A&P Assessment and Plan (1) Chronic kidney disease, stage 4 (severe): Code(s): N18.4 - Chronic kidney disease, stage 4 (severe) Status: Chronic Assessment and Plan: creatinine better than baseline baseline creatinine runs ~ 2.5 - 3.0mg/dl in the last year or so due to hypertension and vascular disease creatinine lower than baseline recently (creatinine 1.9 today) - this may be a dilutional value secondary to fluid retention - her poor oral intake and loss of muscle mass may partly explain this as well not opposed to PRN or scheduled diuretics (2) Diverticular disease of intestine with perforation and abscess: Code(s): K57.80 - Diverticulitis of intestine, part unspecified, with perforation and abscess without bleeding Status: Acute Assessment and Plan: Surgery and Infectious Disease following. s/p percutaneous drain placement for abscess no need for antibiotics at this time (3) Hypertension: Qualifiers: Hypertension type: essential hypertension Qualified Code(s): I10 - Essential (primary) hypertension Code(s): I10 - Essential (primary) hypertension Status: Chronic Assessment and Plan: reasonable control at this time follow hemodynamics (4) SOB (shortness of breath): Code(s): R06.02 - Shortness of breath Status: Acute Assessment and Plan: suspect due to fluid overload and possible anemia getting PRN diuretics - not opposed to scheduled dosing wean oxygen as tolerated (5) Hyponatremia: Code(s): E87.1 - Hypo-osmolality and hyponatremia Status: Acute Assessment and Plan: mainly due to renal dysfunction and possibly fluid retention started on fluid restriction follow trend of sodium (6) Chronic anemia: Code(s): D64.9 - Anemia, unspecified Status: Acute Assessment and Plan: multifactorial etiology: - previous JINA - known CKD - acute illness/inflammation - blood loss? on Epogen (gets as an outpatient as well) follow trend of H/H (7) MDS (myelodysplastic syndrome), low grade: Code(s): D46.20 - Refractory anemia with excess of blasts, unspecified Status: Acute Assessment and Plan: Hem/Onc recommendations noted IVIG today follow platelet count (8) Generalized weakness: Code(s): R53.1 - Weakness Status: Acute Assessment and Plan: due to acute illness and multiple hospitalizations PT/OT as tolerated Will continue to follow Subjective Date/time seen: 06/16/19 17:32 Seen by Hem/Onc and started on IVIG -- still feels weak and continues to have on/off shortness of breath; tolerating oral intake and working wth PT/OT as tolerated; some intermittent abdominal pain as well. Exam Narrative: Exam Narrative: General: WD/WN female in NAD Heart: normal S1 and S2; no rub Lungs: coarse with decreased breath sounds at bases Abdomen: soft, nontender, nondistended, positive bowel sounds Extremities: no cyanosis or clubbing; trace - 1+ edema Skin: warm and intact Objective Data Vital Signs Vital Signs: Vital Signs Temp Pulse Resp BP Pulse Ox 06/16/19 14:00 36.5 C 83 24 H 136/65 100 06/16/19 08:00 84 16 100 06/16/19 06:00 36.7 C 84 16 139/62 100 06/16/19 03:11 95 06/15/19 22:00 36.9 C 90 20 132/87 100 06/15/19 21:33 74 Intake/Output Intake/Output: Intake & Output 06/13/19 06/14/19 06/15/19 06/16/19 23:59 23:59 23:59 23:59 Intake Total 270 1476 480 Output Total 0470 5634 1000 [facility] -3288 -1029 -256 Meds/Results Medications: Active Medications Generic Name Dose Route Start Last Admin Trade Name Freq PRN Reason Stop Dose Admin Albuterol 2.5 mg 06/13/19 15:16 06/15/19 13:54 Albuterol Sulf Neb 2.5mg/0.5ml INHALATION 2.5 mg Q6HRT PRN Administration Shortness Of Breath Or Wheezing Allopurinol
[2019-06-16] MEDS: FLUTICASONE PROPIONATE 0.05% NA SPR 16 GM BTL (*BKC) 2 SPRAY NASAL (21:40)
[2019-06-17] VITALS (11 sets, daily range): BP systolic 143–145; BP diastolic 67–73; PULSE 76–88; RESP 16–20; TEMP 36.1–36.9; O2SAT 93–100
[2019-06-17 06:11] LABS: Basophils Percent Auto 0.3 % (0.2-1.2); Eosinophils Percent Auto 1.3 % (0-4.4); Hematocrit 23.7 % (37.0-47.0); Hemoglobin 7.4 g/dL (12.0-15.0); Immature Granulocyte Absolute 0.01 K/mm3 (0.00-0.031); Immature Granulocyte Percent A 0.3 % (0-0.5); Immature Platelet Fraction Pct 7.1 % (0.9-11.2); Lymphocytes Absolute Auto 0.79 K/mm3 (0.9-3.2); Lymphocytes Percent Auto 25.7 % (18.3-44.2); Mean Corpuscular HGB Conc 31.2 g/dl (32-36); Mean Corpuscular Hemoglobin 29.5 pg (26-34); Mean Corpuscular Volume 94.4 fl (80-100); Mean Platelet Volume 10.4 fl (7.4-10.4); Monocytes Absolute Auto 0.2 K/mm3 (0.1-0.6); Monocytes Percent Auto 6.5 % (2.6-8.5); Neutrophils Percent Auto 65.9 % (45.5-73.1); Red Blood Count 2.51 M/mm3 (4.2-5.4); Red Cell Distribution Width 17.2 % (11.5-14.5); White Blood Count 3.1 K/mm3 (4.5-10.0)
[2019-06-17 06:58] LABS: Blood Urea Nitrogen 35 mg/dL (7-17); Calcium 7.9 mg/dL (8.4-10.2); Carbon Dioxide 27 mmol/L (22-30); Chloride 98 mmol/L (98-107); Estimated CRCL calculation 18 ml/min; Estimated Glomerular Filt Rate 22; Glucose 81 mg/dL (65-105); Potassium 3.2 mmol/L (3.4-5.0); Sodium 129 mmol/L (137-145)
[2019-06-17 07:06] LABS: Lactate Dehydrogenase 253 U/L (313-618)
[2019-06-17 07:28] LABS: Platelet Count Result 20 k/mm3 (150-375)
[2019-06-17 07:32] LABS: Platelet Estimate Decreased (Adequate); Poikilocytosis 1+ (NORMAL)
[2019-06-17] MEDS: BUMETANIDE INJ 1 MG/4 ML VIAL 2 MG IV PUSH ×2 (09:20→16:59)
[2019-06-17] MEDS: levETIRAcetam 250 MG TABLET PO ×2 (09:21→20:15)
[2019-06-17] MEDS: carvediloL 25 MG TABLET PO ×2 (09:21→20:15)
[2019-06-17] MEDS: POTASSIUM CHLORIDE 20 MEQ TABLET 40 MEQ PO ×2 (09:21→17:00)
[2019-06-17] MEDS: CHOLECALCIFEROL 1,000 UNIT TABLET 1000 UNITS PO (09:21)
[2019-06-17] MEDS: GUAIFENESIN/DEXTROMETHORPHAN 10 ML UDC PO (09:22)
[2019-06-17] MEDS: VITAMIN B COMPLEX CAPSULE 1 CAP PO (09:22)
[2019-06-17] MEDS: MONTELUKAST SODIUM 10 MG TABLET PO (09:22)
[2019-06-17] MEDS: allopurinoL 100 MG TABLET PO ×2 (09:22→20:15)
--- NOTE | 2019-06-17 09:47 | PM.PNGS ---
Progress Note: A&P Assessment and Plan (1) Diverticular disease of intestine with perforation and abscess: Code(s): K57.80 - Diverticulitis of intestine, part unspecified, with perforation and abscess without bleeding Status: Acute Assessment and Plan: No significant abdominal pain today. Will await results of the CT scan of abdomen and pelvis. Continue perc. drain to suction. Tolerating a low fiber diet. (2) MDS (myelodysplastic syndrome), low grade: Code(s): D46.20 - Refractory anemia with excess of blasts, unspecified Status: Acute Assessment and Plan: Platelets 20,000 today. Hem/Onc consulted and recommendations appreciated. Received IVIG yesterday. If platelets are not able to be managed and stable above 20,000 for discharge, then the patient may require transfer to a tertiary care facility where other medical options are available. (3) Thrombocytopenia: Code(s): D69.6 - Thrombocytopenia, unspecified Status: Acute (4) Chronic anemia: Code(s): D64.9 - Anemia, unspecified Status: Acute Assessment and Plan: Stable (5) Neutropenia: Code(s): D70.9 - Neutropenia, unspecified Status: Acute (6) Chronic kidney disease, stage 4 (severe): Code(s): N18.4 - Chronic kidney disease, stage 4 (severe) Status: Chronic Assessment and Plan: Creatinine 2.0. Nephrology following. Additional Plan Pancreatic lesion noted on CT. Plan for further work-up once more stable. Discussed plan of care with Dr. Lerner. Subjective Subjective Date/Time Seen: 06/17/19 09:00 Patient reports: no new complaints, feels better, tolerating a regular diet, flatus and bowel movement Interval history: Patient denies any abdominal pain, nausea, or bloating today. Bowels continue to move. Up to chair this morning. Awaiting CT scan. No other complaints at this time. Review of Systems Review of Systems: All systems reviewed & are unremarkable except as noted in HPI and below Exam Const: General: no acute distress, awake and tired appearing Orientation/consciousness: patient oriented x3 GI: Inspection: other (mild distention, unchanged) GI Palp: Yes Soft to palpation, No Tenderness to palpation present (GI), No Guarding due to palpation present (GI) and No Rebound tenderness present Auscultation: normal bowel sounds Other: RLQ percutaneous abscess drain with minimal purulent mckinnon/pink drainage in bag Neuro: General: moves all extremities and no focal motor deficits Gait exam (Neuro): Unable to assess gait Extrem: General: edema bilateral (improved) Psych: Mental Status: mental status grossly normal Affect: normal affect Attitude: cooperative Thought process: Normal thought process present Objective Data Vital Signs Vital Signs: Vital Signs - 24 hr 06/16/19 14:00 06/16/19 19:21 06/16/19 21:41 Temperature 36.5 C Pulse Rate 83 89 Respiratory Rate 24 H Blood Pressure 136/65 Pulse Oximetry 100 93 06/16/19 22:00 06/17/19 06:00 06/17/19 08:00 Temperature 36.2 C L 36.2 C L Pulse Rate 89 85 85 Respiratory Rate 20 20 20 Blood Pressure 138/77 144/69 H Pulse Oximetry 100 100 100 Intake/Output Intake/Output: Intake & Output 06/14/19 06/15/19 06/16/19 06/17/19 23:59 23:59 23:59 23:59 Intake Total 270 1476 720 240 Output Total 2425 2501 1000 600 [facility]2155 -1025 -280 -360 Meds/Results Medications: Active Medications Generic Name Dose Route Start Last Admin Trade Name Freq PRN Reason Stop Dose Admin Albuterol 2.5 mg 06/13/19 15:16 06/15/19 13:54 Albuterol Sulf Neb 2.5mg/0.5ml INHALATION 2.5 mg Q6HRT PRN Administration Shortness Of Breath Or Wheezing Allopurinol 100 mg 06/08/19 21:00 06/17/19 09:22 Zyloprim PO 100 mg Q12HR LYLE Administration Bumetanide 2 mg 06/13/19 09:00 06/17/19 09:20 Bumex Inj IV PUSH 2 mg BID LYLE Administration Carvedilol 25 mg 06/08/19 21:00 06/16
--- NOTE | 2019-06-17 10:52 | PCDIET ---
Nutrition Follow-Up Complete: Altered GI function related to diveticulosis as evidenced by noted bloating,and altered nutrition-related lab values (Hgb 7.4 and Hct 22.6). Pt able to tolerate diet as it advances. Goal met. Pt tolerating diet but PO intake low. Nutrition recommendation: Recommend continuation of low-fiber diet until medically appropriate for advancement. Ensure clear 1x/day and Fluid restriction appropriate. Last recorded weight is 70.5 kg. Bowel Motility: +BM 06/15 Labs Reviewed: Hgb(7.4), Na(129), K(3.2), GFR(22), BUN(35), Glu(81), RBC(2.51), Ca(7.9) Meds Noted: Vit D, Bumex, Epogen, Keppra, Zofran, B complex Additional Notes: Pt eating average of 50% of meals. Pt and daughters state her appetite is increasing slightly. For breakfast she ate 1/2 of her [place] toast, coffee, and juice. Had uneaten banana on table. Encouraged PO intake. Will monitor labs and intake. Follow up in 5 days.
--- NOTE | 2019-06-17 11:40 | PCNSR ---
On 06/17/19, the student, [Guadalupe Martines ], provided care and completed [facility] documentation on this patient. I have reviewed the student's documentation and agree with the findings.
--- NOTE | 2019-06-17 12:33 | P.PNNP_ITS ---
Progress Note: A&P Assessment and Plan (1) Chronic kidney disease, stage 4 (severe): Code(s): N18.4 - Chronic kidney disease, stage 4 (severe) Status: Chronic Assessment and Plan: * creatinine better than baseline * baseline creatinine runs ~ 2.5 - 3.0mg/dl in the last year or so * due to hypertension and vascular disease * creatinine lower than baseline recently (creatinine 1.9 today) - this may be a dilutional value secondary to fluid retention - her poor oral intake and loss of muscle mass may partly explain this as well * not opposed to PRN or scheduled diuretics (2) Diverticular disease of intestine with perforation and abscess: Code(s): K57.80 - Diverticulitis of intestine, part unspecified, with perforation and abscess without bleeding Status: Acute Assessment and Plan: * Surgery and Infectious Disease following. * s/p percutaneous drain placement for abscess * no need for antibiotics at this time (3) Hypertension: Qualifiers: Hypertension type: essential hypertension Qualified Code(s): I10 - Essential (primary) hypertension Code(s): I10 - Essential (primary) hypertension Status: Chronic Assessment and Plan: * reasonable control at this time * follow hemodynamics (4) SOB (shortness of breath): Code(s): R06.02 - Shortness of breath Status: Acute Assessment and Plan: * suspect due to fluid overload and possible anemia * getting PRN diuretics - not opposed to scheduled dosing * wean oxygen as tolerated (5) Hyponatremia: Code(s): E87.1 - Hypo-osmolality and hyponatremia Status: Acute Assessment and Plan: * mainly due to renal dysfunction and possibly fluid retention * started on fluid restriction * follow trend of sodium (6) Chronic anemia: Code(s): D64.9 - Anemia, unspecified Status: Acute Assessment and Plan: * multifactorial etiology: - previous JINA - known CKD - acute illness/inflammation - blood loss? * on Epogen (gets as an outpatient as well) * follow trend of H/H (7) MDS (myelodysplastic syndrome), low grade: Code(s): D46.20 - Refractory anemia with excess of blasts, unspecified Status: Acute Assessment and Plan: * Hem/Onc recommendations noted * IVIG today * follow platelet count (8) Generalized weakness: Code(s): R53.1 - Weakness Status: Acute Assessment and Plan: * due to acute illness and multiple hospitalizations * PT/OT as tolerated Will continue to follow Subjective Date/time seen: 06/17/19 12:33 Seems to be doing reasonably well -- tolerating oral intake; s/p IVIG infusion (as ordered by Hem/Onc); no significant abdominal pain today; CT of abdomen this AM (results pending); no apparent distress. Exam Narrative: Exam Narrative: General: WD/WN female in NAD Heart: normal S1 and S2; no rub Lungs: coarse with decreased breath sounds at bases Abdomen: soft, nontender, nondistended, positive bowel sounds Extremities: no cyanosis or clubbing; trace - 1+ edema Skin: no rash or nodules Objective Data Vital Signs Vital Signs: Vital Signs Temp Pulse Resp BP Pulse Ox 06/17/19 11:05 93 06/17/19 08:00 85 20 100 06/17/19 06:00 36.2 C L 85 20 144/69 H 100 06/16/19 22:00 36.2 C L 89 20 138/77 100
--- NOTE | 2019-06-17 12:33 | PM.PNNEP ---
Progress Note: A&P Assessment and Plan (1) Chronic kidney disease, stage 4 (severe): Code(s): N18.4 - Chronic kidney disease, stage 4 (severe) Status: Chronic Assessment and Plan: creatinine better than baseline baseline creatinine runs ~ 2.5 - 3.0mg/dl in the last year or so due to hypertension and vascular disease creatinine lower than baseline recently (creatinine 1.9 today) - this may be a dilutional value secondary to fluid retention - her poor oral intake and loss of muscle mass may partly explain this as well not opposed to PRN or scheduled diuretics (2) Diverticular disease of intestine with perforation and abscess: Code(s): K57.80 - Diverticulitis of intestine, part unspecified, with perforation and abscess without bleeding Status: Acute Assessment and Plan: Surgery and Infectious Disease following. s/p percutaneous drain placement for abscess no need for antibiotics at this time (3) Hypertension: Qualifiers: Hypertension type: essential hypertension Qualified Code(s): I10 - Essential (primary) hypertension Code(s): I10 - Essential (primary) hypertension Status: Chronic Assessment and Plan: reasonable control at this time follow hemodynamics (4) SOB (shortness of breath): Code(s): R06.02 - Shortness of breath Status: Acute Assessment and Plan: suspect due to fluid overload and possible anemia getting PRN diuretics - not opposed to scheduled dosing wean oxygen as tolerated (5) Hyponatremia: Code(s): E87.1 - Hypo-osmolality and hyponatremia Status: Acute Assessment and Plan: mainly due to renal dysfunction and possibly fluid retention started on fluid restriction follow trend of sodium (6) Chronic anemia: Code(s): D64.9 - Anemia, unspecified Status: Acute Assessment and Plan: multifactorial etiology: - previous JINA - known CKD - acute illness/inflammation - blood loss? on Epogen (gets as an outpatient as well) follow trend of H/H (7) MDS (myelodysplastic syndrome), low grade: Code(s): D46.20 - Refractory anemia with excess of blasts, unspecified Status: Acute Assessment and Plan: Hem/Onc recommendations noted IVIG today follow platelet count (8) Generalized weakness: Code(s): R53.1 - Weakness Status: Acute Assessment and Plan: due to acute illness and multiple hospitalizations PT/OT as tolerated Will continue to follow Subjective Date/time seen: 06/17/19 12:33 Seems to be doing reasonably well -- tolerating oral intake; s/p IVIG infusion (as ordered by Hem/Onc); no significant abdominal pain today; CT of abdomen this AM (results pending); no apparent distress. Exam Narrative: Exam Narrative: General: WD/WN female in NAD Heart: normal S1 and S2; no rub Lungs: coarse with decreased breath sounds at bases Abdomen: soft, nontender, nondistended, positive bowel sounds Extremities: no cyanosis or clubbing; trace - 1+ edema Skin: no rash or nodules Objective Data Vital Signs Vital Signs: Vital Signs Temp Pulse Resp BP Pulse Ox 06/17/19 11:05 93 06/17/19 08:00 85 20 100 06/17/19 06:00 36.2 C L 85 20 144/69 H 100 06/16/19 22:00 36.2 C L 89 20 138/77 100 06/16/19 21:41 89 06/16/19 19:21 93 06/16/19 14:00 36.5 C 83 24 H 136/65 100 Intake/Output Intake/Output: Intake & Output 06/14/19 06/15/19 06/16/19 06/17/19 23:59 23:59 23:59 23:59 Intake Total 270 1476 720 980 Output Total 2425 2501 1000 600 Balance -2155 -1025 -280 380 Meds/Results Medications: Active Medications Generic Name Dose Route Start Last Admin Trade Name Freq PRN Reason Stop Dose Admin Albuterol 2.5 mg 06/13/19 15:16 06/15/19 13:54 Albuterol Sulf Neb 2.5mg/0.5ml INHALATION 2.5 mg Q6HRT PRN Administration Verna
--- NOTE | 2019-06-17 13:27 | P.PNIM_ITS ---
Progress Note: A&P Assessment and Plan (1) Dyspnea: Qualifiers: Dyspnea type: shortness of breath Qualified Code(s): R06.02 - Shortness of breath Code(s): R06.00 - Dyspnea, unspecified Status: Acute Assessment and Plan: * Due to CHF, acute on chronic diastolic * Improved after diuresis 655ml 06/11 * Repeat furosemide 06/12, fluid restriction * Echo with moderate , NL LVEF, diastolic dysfuntion * Continue bumex bid per nephrology and replace K today 06/16 (2) URI (upper respiratory infection): Qualifiers: URI type: unspecified URI Qualified Code(s): J06.9 - Acute upper re spiratory infection, unspecified Code(s): J06.9 - Acute upper respiratory infection, unspecified Status: Acute Assessment and Plan: * Symptomatic treatment (3) Unresponsive episode: Code(s): R41.89 - Other symptoms and signs involving cognitive functions and awareness Status: Acute Assessment and Plan: * C/w seizure with postictal state. * Currently on Keppra 250mg q 12 h w/o recurrence. (4) Diverticular disease of intestine with perforation and abscess: Code(s): K57.80 - Diverticulitis of intestine, part unspecified, with perforation and abscess without bleeding Status: Acute Assessment and Plan: * Platelets 3/, IR inserted drain 06/08 * Draining serosanguinous fluid, minimal amount * Discussed with surgery and plan is to leave drain for now * 06/[address] revealed R pelvic abscess smaller with L no real change (5) Chronic anemia: Code(s): D64.9 - Anemia, unspecified Status: Acute Assessment and Plan: * Continue with Epogen MWF as ordered. * Known to have pancytopenia and had a bone marrow biopsy in 2014 that was unremarkable. * 06/12 platelets 13K, 16K; transfuse 2 U pheresed platelets * 06/13 platelets 23K * 06/14 platelets 8 K, 2 more units of pheresed platelets * 06/15 30K continue to monitor * 06/16 20K IV Ig per oncology (6) Right knee pain: Qualifiers: Chronicity: acute Qualified Code(s): M25.561 - Pain in right knee Code(s): M25.561 - Pain in right knee Status: Acute Assessment and Plan: * Likely due to fall at facility * PT/OT * Monitor progress (7) Edema: Qualifiers: Edema type: unspecified Qualified Code(s): R60.9 - Edema, unspecified Code(s): R60.9 - Edema, unspecified Status: Acute Assessment and Plan: * Continue with lamin wraps to bilateral lower extremities. (8) Generalized weakness: Code(s): R53.1 - Weakness Status: Acute Assessment and Plan: * PT/OT (9) Chronic kidney disease, stage 4 (severe): Code(s): N18.4 - Chronic kidney disease, stage 4 (severe) Status: Chronic Assessment and Plan: * Continue to monitor * Avoid nephrotoxic drugs * Renal dose meds * 06/14, creatinine 1.9 which is actually better than at baseline * 06/16 2.2 (10) Hyponatremia: Code(s): E87.1 - Hypo-osmolality and hyponatremia Status: Acute Assessment and Plan: * Chronic and relatively stable * Urine Na 49 on 05/26/2019 * Fluid restriction * F/u lab, still 129 today 06/14 * 06/16 129 (11) Hypertension: Qualifiers: Hypertension type: essential hypertension Qualified Code(s): I10 - Essential (primary) hypertension Code(s): I10 - Essential (primary) hypertension Status: Chronic Assessment and Plan: * Hold clonidine and hydralazine but have restarted Coreg
--- NOTE | 2019-06-17 13:27 | PM.IMPN ---
Progress Note: A&P Assessment and Plan (1) Dyspnea: Qualifiers: Dyspnea type: shortness of breath Qualified Code(s): R06.02 - Shortness of breath Code(s): R06.00 - Dyspnea, unspecified Status: Acute Assessment and Plan: Due to CHF, acute on chronic diastolic Improved after diuresis 655ml 06/11 Repeat furosemide 06/12, fluid restriction Echo with moderate , NL LVEF, diastolic dysfuntion Continue bumex bid per nephrology and replace K today 06/16 (2) URI (upper respiratory infection): Qualifiers: URI type: unspecified URI Qualified Code(s): J06.9 - Acute upper respiratory infection, unspecified Code(s): J06.9 - Acute upper respiratory infection, unspecified Status: Acute Assessment and Plan: Symptomatic treatment (3) Unresponsive episode: Code(s): R41.89 - Other symptoms and signs involving cognitive functions and awareness Status: Acute Assessment and Plan: C/w seizure with postictal state. Currently on Keppra 250mg q 12 h w/o recurrence. (4) Diverticular disease of intestine with perforation and abscess: Code(s): K57.80 - Diverticulitis of intestine, part unspecified, with perforation and abscess without bleeding Status: Acute Assessment and Plan: Platelets 3/4, IR inserted drain 3 Draining serosanguinous fluid, minimal amount Discussed with surgery and plan is to leave drain for now 06/[address] revealed R pelvic abscess smaller with L no real change (5) Chronic anemia: Code(s): D64.9 - Anemia, unspecified Status: Acute Assessment and Plan: Continue with Epogen MWF as ordered. Known to have pancytopenia and had a bone marrow biopsy in 2014 that was unremarkable. 06/12 platelets 13K, 16K; transfuse 2 U pheresed platelets 06/13 platelets 23K 06/14 platelets 8 K, 2 more units of pheresed platelets 06/15 30K continue to monitor 06/16 20K IV Ig per oncology (6) Right knee pain: Qualifiers: Chronicity: acute Qualified Code(s): M25.561 - Pain in right knee Code(s): M25.561 - Pain in right knee Status: Acute Assessment and Plan: Likely due to fall at facility PT/OT Monitor progress (7) Edema: Qualifiers: Edema type: unspecified Qualified Code(s): R60.9 - Edema, unspecified Code(s): R60.9 - Edema, unspecified Status: Acute Assessment and Plan: Continue with lamin wraps to bilateral lower extremities. (8) Generalized weakness: Code(s): R53.1 - Weakness Status: Acute Assessment and Plan: PT/OT (9) Chronic kidney disease, stage 4 (severe): Code(s): N18.4 - Chronic kidney disease, stage 4 (severe) Status: Chronic Assessment and Plan: Continue to monitor Avoid nephrotoxic drugs Renal dose meds 06/14, creatinine 1.9 which is actually better than at baseline 06/16 2.2 (10) Hyponatremia: Code(s): E87.1 - Hypo-osmolality and hyponatremia Status: Acute Assessment and Plan: Chronic and relatively stable Urine Na 49 on 05/26/2019 Fluid restriction F/u lab, still 129 today 06/14 06/16 129 (11) Hypertension: Qualifiers: Hypertension type: essential hypertension Qualified Code(s): I10 - Essential (primary) hypertension Code(s): I10 - Essential (primary) hypertension Status: Chronic Assessment and Plan: Hold clonidine and hydralazine but have restarted Coreg 06/14 Subjective Date/time seen: 06/17/19 13:27 Interval history: Date of visit 06/16. 78-year-old white female myelodysplasia, diverticular abscess, admitted with possible seizure. Now on Keppra and has developed acute on chronic diastolic heart failure. Receiving platelets for thrombocytopenia with her myelodysplasia. Still some short of breath today and states the breathing treatments help and was up in chair having bms but still not eating well. E
[2019-06-17] MEDS: ACETAMINOPHEN 325 MG TABLET 650 MG PO (14:04)
[2019-06-17] MEDS: ALBUTEROL SULFATE NEB 2.5 MG/0.5 ML INH INHALATION ×2 (14:23→20:04)
--- NOTE | 2019-06-17 20:05 | WPDONCPN ---
Progress Note: A&P Assessment and Plan (1) MDS (myelodysplastic syndrome), low grade: Code(s): D46.20 - Refractory anemia with excess of blasts, unspecified Status: Acute Assessment and Plan: Today CBC shows stability of the white blood cell count and hemoglobin. Continue with conservative measures and higher dose of Epogen for her MDS issues. Monitoring CBC on daily basis. (2) Thrombocytopenia: Code(s): D69.6 - Thrombocytopenia, unspecified Status: Acute Assessment and Plan: Patient status post 500 milligrams/kilogram of IVIG last night. Platelet count did drop down to 20. She has no obvious source of bleeding. recheck another CBC in the morning and make final decisions about surgery versus transfer versus discharge. Time Spent With Patient Time with patient: 15 - 25 minutes Review of Systems Constitutional Constitutional: Reports fatigue and Reports weakness Respiratory Respiratory: Reports dyspnea on exertion Genitourinary Genitourinary: Reports flank pain Musculoskeletal Musculoskeletal: Reports stiffness Neurologic Reports abnormal gait Exam Const: General: ill appearing, lethargic and tired appearing; No confusion Nutritional Appearance: underweight Orientation/consciousness: patient oriented x3, No confusion and lethargic HENMT: Head: normal to inspection General nose exam: Normal external nose present and Normal nares present Mouth: Yes Normal oral and palatal mucosa present, Yes oropharynx normal and Yes moist mucous membranes Throat: posterior oropharynx normal Neck: Neck: no lymphadenopathy and supple Resp: Effort & Inspection: normal respiratory effort Auscultation: diminished lung sounds GI: Inspection: normal to inspection Rectal Exam: deferred Other: perc drain in abd Skin: General skin exam: ecchymosis, petechiae and pallor Neuro: General: patient oriented x3 and No confusion Cranial nerves: Yes CN's II-XII intact bilaterally Cognition (Neuro): normal cognition Speech: normal speech Gait exam (Neuro): Assistive device used Motor exam (neuro): Abnormal motor strength present Extrem: General: pedal edema Psych: Mental Status: mental status grossly normal Speech and movement: Normal speech and movement present Affect: normal affect Objective Data Vital Signs Vital Signs: Vital Signs - 24 hr 06/16/19 21:41 06/16/19 22:00 06/17/19 06:00 Temperature 36.2 C L 36.2 C L Pulse Rate 89 89 85 Respiratory Rate 20 20 Blood Pressure 138/77 144/69 H Pulse Oximetry 100 100 03/12/20 08:00 06/17/19 11:05 06/17/19 14:00 Temperature 36.9 C Pulse Rate 85 81 Respiratory Rate 20 20 Blood Pressure 143/67 H Pulse Oximetry 100 93 100 06/17/19 14:23 06/17/19 14:33 Temperature Pulse Rate 84 76 Respiratory Rate 20 20 Blood Pressure Pulse Oximetry Intake/Output Intake/Output: Intake & Output 06/14/19 06/15/19 06/16/19 06/17/19 23:59 23:59 23:59 23:59 Intake Total 270 / 270 1476 / 1476 720 / 720 1760 / 1760 Output Total 2425 / 2425 2501 / 2501 1000 / 1000 1300 / 1300 Balance -2155 / -2155 -1025 / -1025 -280 / -280 460 / 460 Meds/Results Medications: Active Medications Generic Name Dose Route Start Last Admin Trade Name Freq PRN Reason Stop Dose Admin Acetaminophen 650 mg 06/17/19 12:49 06/17/19 14:04 Tylenol Tablet PO 650 mg Q6H PRN Administration Mild Pain (1-3) or Fever Albuterol 2.5 mg 06/17/19 20:00 06/17/19 20:04 Albuterol Sulf Neb 2.5mg/0.5ml INHALATION 2.5 mg Q6HRT LYLE Administration Allopurinol 100 mg 06/08/19 21:00 06/17/19 09:22 Zyloprim PO 100 mg Q12HR LYLE Administration Bumetanide 2 mg 06/13/19 09:00 06/17/19 16:59 Bumex Inj IV PUSH 2 mg BID LYLE Administration Carvedilol 25 mg 06/08/19 21:00 06/17/19 09:21 Coreg PO 25 mg Q12HR LYLE Administration Epoetin Nixon 10,000 units 06/11/19 09:00 06/16/19 08:16 Epogen SUB-Q 1
[2019-06-17] MEDS: FLUTICASONE PROPIONATE 0.05% NA SPR 16 GM BTL (*BKC) 2 SPRAY NASAL (20:15)
[2019-06-18] VITALS (16 sets, daily range): BP systolic 130–155; BP diastolic 68–88; PULSE 71–137; RESP 16–22; TEMP 36.1–36.4; O2SAT 95–100
[2019-06-18] MEDS: ALBUTEROL SULFATE NEB 2.5 MG/0.5 ML INH INHALATION ×4 (01:47→19:05)
[2019-06-18 05:14] LABS: Eosinophils Absolute Auto 0.1 K/mm3 (0-0.3); Eosinophils Percent Auto 1.1 % (0-4.4); Hematocrit 24.2 % (37.0-47.0); Hemoglobin 7.4 g/dL (12.0-15.0); Immature Granulocyte Absolute 0.01 K/mm3 (0.00-0.031); Immature Granulocyte Percent A 0.2 % (0-0.5); Immature Platelet Fraction Pct 10.6 % (0.9-11.2); Lymphocytes Absolute Auto 0.94 K/mm3 (0.9-3.2); Lymphocytes Percent Auto 21.4 % (18.3-44.2); Mean Corpuscular HGB Conc 30.6 g/dl (32-36); Mean Corpuscular Hemoglobin 29.2 pg (26-34); Mean Corpuscular Volume 95.7 fl (80-100); Monocytes Absolute Auto 0.2 K/mm3 (0.1-0.6); Monocytes Percent Auto 5.2 % (2.6-8.5); Neutrophils Absolute Auto 3.2 K/mm3 (1.3-6.7); Neutrophils Percent Auto 72.1 % (45.5-73.1); Red Blood Count 2.53 M/mm3 (4.2-5.4); Red Cell Distribution Width 17.5 % (11.5-14.5); White Blood Count 4.4 K/mm3 (4.5-10.0)
[2019-06-18 05:21] LABS: Fibrinogen 299 mg/dl (215-510)
[2019-06-18 05:27] LABS: Blood Urea Nitrogen 37 mg/dL (7-17); Calcium 8.3 mg/dL (8.4-10.2); Carbon Dioxide 27 mmol/L (22-30); Chloride 101 mmol/L (98-107); Estimated CRCL calculation 20 ml/min; Estimated Glomerular Filt Rate 24; Glucose 82 mg/dL (65-105); Potassium 4.5 mmol/L (3.4-5.0); Sodium 131 mmol/L (137-145)
[2019-06-18 05:44] LABS: Platelet Count Result 18 k/mm3 (150-375)
[2019-06-18] MEDS: MONTELUKAST SODIUM 10 MG TABLET PO (08:46)
[2019-06-18] MEDS: VITAMIN B COMPLEX CAPSULE 1 CAP PO (08:46)
[2019-06-18] MEDS: allopurinoL 100 MG TABLET PO ×2 (08:46→21:15)
[2019-06-18] MEDS: levETIRAcetam 250 MG TABLET PO ×2 (08:46→21:16)
[2019-06-18] MEDS: CHOLECALCIFEROL 1,000 UNIT TABLET 1000 UNITS PO (08:46)
[2019-06-18] MEDS: carvediloL 25 MG TABLET PO ×2 (08:46→21:15)
[2019-06-18] MEDS: BUMETANIDE INJ 1 MG/4 ML VIAL 2 MG IV PUSH ×2 (08:47→17:13)
[2019-06-18] MEDS: EPOETIN ALFA 10,000 UNITS/ML VIAL 10000 UNITS SUB-Q (09:39)
--- NOTE | 2019-06-18 11:02 | P.PNIM_ITS ---
Progress Note: A&P Assessment and Plan (1) Dyspnea: Qualifiers: Dyspnea type: shortness of breath Qualified Code(s): R06.02 - Shortness of breath Code(s): R06.00 - Dyspnea, unspecified Status: Acute Assessment and Plan: * Due to CHF, acute on chronic diastolic * Repeat furosemide 06/12, fluid restriction * Echo with moderate , NL LVEF, diastolic dysfuntion * Continue bumex bid per nephrology and replace K as needed (2) URI (upper respiratory infection): Qualifiers: URI type: unspecified URI Qualified Code(s): J06.9 - Acute upper respiratory infection, unspecified Code(s): J06.9 - Acute upper respiratory infection, unspecified Status: Acute Assessment and Plan: * Symptomatic treatment (3) Unresponsive episode: Code(s): R41.89 - Other symptoms and signs involving cognitive functions and awareness Status: Acute Assessment and Plan: * C/w seizure with postictal state. * Currently on Keppra 250mg q 12 h w/o recurrence. (4) Diverticular disease of intestine with perforation and abscess: Code(s): K57.80 - Diverticulitis of intestine, part unspecified, with perforation and abscess without bleeding Status: Acute Assessment and Plan: * Platelets 3, IR inserted drain 06/08 * Draining serosanguinous fluid, minimal amount * Discussed with surgery and plan is to leave drain for now * 06/[address] revealed R pelvic abscess smaller with L no real change (5) Chronic anemia: Code(s): D64.9 - Anemia, unspecified Status: Acute Assessment and Plan: * Continue with Epogen MWF as ordered. * Known to have pancytopenia and had a bone marrow biopsy in 2014 that was unremarkable. * 06/12 platelets 13K, 16K; transfuse 2 U pheresed platelets * 06/13 platelets 23K * 06/14 platelets 8 K, 2 more units of pheresed platelets * 06/15 30K continue to monito r * 06/16 20K IV Ig per oncology * 06/17 hgb stable 7.4 and platlet essentially unchanged at 18K (6) Right knee pain: Qualifiers: Chronicity: acute Qualified Code(s): M25.561 - Pain in right knee Code(s): M25.561 - Pain in right knee Status: Acute Assessment and Plan: * Likely due to fall at facility * PT/OT * Monitor progress (7) Edema: Qualifiers: Edema type: unspecified Qualified Code(s): R60.9 - Edema, unspecified Code(s): R60.9 - Edema, unspecified Status: Acute Assessment and Plan: * Continue with lamin wraps to bilateral lower extremities. (8) Generalized weakness: Code(s): R53.1 - Weakness Status: Acute Assessment and Plan: * PT/OT (9) Chronic kidney disease, stage 4 (severe): Code(s): N18.4 - Chronic kidney disease, stage 4 (severe) Status: Chronic Assessment and Plan: * Continue to monitor * Avoid nephrotoxic drugs * Renal dose meds * 06/14, creatinine 1.9 which is actually better than at baseline * 06/17 2.0 (10) Hyponatremia: Code(s): E87.1 - Hypo-osmolality and hyponatremia Status: Acute Assessment and Plan: * Chronic and relatively stable * Urine Na 49 on 05/26/2019 * Fluid restriction * F/u lab, still 129 today 06/14 * 06/17 131 (11) Hypertension: Qualifiers: Hypertension type: essential hypertension Qualified Code(s): I10 - Essential (primary) hypertension Code(s): I10 - Essential (primary) hypertension Status: Chronic Assessment and Plan: * Hold clonidine and hydralazine
--- NOTE | 2019-06-18 11:02 | PM.IMPN ---
Progress Note: A&P Assessment and Plan (1) Dyspnea: Qualifiers: Dyspnea type: shortness of breath Qualified Code(s): R06.02 - Shortness of breath Code(s): R06.00 - Dyspnea, unspecified Status: Acute Assessment and Plan: Due to CHF, acute on chronic diastolic Repeat furosemide 06/12, fluid restriction Echo with moderate , NL LVEF, diastolic dysfuntion Continue bumex bid per nephrology and replace K as needed (2) URI (upper respiratory infection): Qualifiers: URI type: unspecified URI Qualified Code(s): J06.9 - Acute upper respiratory infection, unspecified Code(s): J06.9 - Acute upper respiratory infection, unspecified Status: Acute Assessment and Plan: Symptomatic treatment (3) Unresponsive episode: Code(s): R41.89 - Other symptoms and signs involving cognitive functions and awareness Status: Acute Assessment and Plan: C/w seizure with postictal state. Currently on Keppra 250mg q 12 h w/o recurrence. (4) Diverticular disease of intestine with perforation and abscess: Code(s): K57.80 - Diverticulitis of intestine, part unspecified, with perforation and abscess without bleeding Status: Acute Assessment and Plan: Platelets 3/, IR inserted drain 3 Draining serosanguinous fluid, minimal amount Discussed with surgery and plan is to leave drain for now 06/[address] revealed R pelvic abscess smaller with L no real change (5) Chronic anemia: Code(s): D64.9 - Anemia, unspecified Status: Acute Assessment and Plan: Continue with Epogen MWF as ordered. Known to have pancytopenia and had a bone marrow biopsy in 2014 that was unremarkable. 06/12 platelets 13K, 16K; transfuse 2 U pheresed platelets 06/13 platelets 23K 06/14 platelets 8 K, 2 more units of pheresed platelets 06/15 30K continue to monito r 06/16 20K IV Ig per oncology 06/17 hgb stable 7.4 and platlet essentially unchanged at 18K (6) Right knee pain: Qualifiers: Chronicity: acute Qualified Code(s): M25.561 - Pain in right knee Code(s): M25.561 - Pain in right knee Status: Acute Assessment and Plan: Likely due to fall at facility PT/OT Monitor progress (7) Edema: Qualifiers: Edema type: unspecified Qualified Code(s): R60.9 - Edema, unspecified Code(s): R60.9 - Edema, unspecified Status: Acute Assessment and Plan: Continue with lamin wraps to bilateral lower extremities. (8) Generalized weakness: Code(s): R53.1 - Weakness Status: Acute Assessment and Plan: PT/OT (9) Chronic kidney disease, stage 4 (severe): Code(s): N18.4 - Chronic kidney disease, stage 4 (severe) Status: Chronic Assessment and Plan: Continue to monitor Avoid nephrotoxic drugs Renal dose meds 06/14, creatinine 1.9 which is actually better than at baseline 06/17 2.0 (10) Hyponatremia: Code(s): E87.1 - Hypo-osmolality and hyponatremia Status: Acute Assessment and Plan: Chronic and relatively stable Urine Na 49 on 05/26/2019 Fluid restriction F/u lab, still 129 today 06/14 06/17 131 (11) Hypertension: Qualifiers: Hypertension type: essential hypertension Qualified Code(s): I10 - Essential (primary) hypertension Code(s): I10 - Essential (primary) hypertension Status: Chronic Assessment and Plan: Hold clonidine and hydralazine but have restarted Coreg 06/14 Subjective Date/time seen: 06/18/19 11:02 Interval history: Date of visit 06/17. 78-year-old white female myelodysplasia, diverticular abscess, admitted with possible seizure. Now on Keppra and has developed acute on chronic diastolic heart failure. Receiving platelets for thrombocytopenia with her myelodysplasia. Still some short of breath today and states the breathing treatments help and was up in chair having bms but s
--- NOTE | 2019-06-18 12:50 | PM.PNGS ---
Progress Note: A&P Assessment and Plan (1) Diverticular disease of intestine with perforation and abscess: Code(s): K57.80 - Diverticulitis of intestine, part unspecified, with perforation and abscess without bleeding Status: Acute Assessment and Plan: CT-guided percutaneous drain in place and still putting out occasional scant purulence fluid. Would recommend continuing to monitor drain output until it is completely dry and serous for at least several days. No further antibiotics necessary at this time unless she begins having fevers, worsening abdominal pains, or other recurrent symptoms. We will delay surgery until hemoglobin and platelets have improved. (2) MDS (myelodysplastic syndrome), low grade: Code(s): D46.20 - Refractory anemia with excess of blasts, unspecified Status: Acute Assessment and Plan: Patient being treated by Dr. Pham. Received IVIG and continuing to follow platelet levels. Subjective Subjective Date/Time Seen: 06/18/19 12:50 No significant abdominal pain today. She is continuing to work with physical therapy and increase her strength and activity. No fevers, nausea, vomiting or other new symptoms. Review of Systems Review of Systems: All systems reviewed & are unremarkable except as noted in HPI and below Exam GI: Inspection: non-distended GI Palp: Yes Soft to palpation, No Tenderness to palpation present (GI) and No Guarding due to palpation present (GI) Other: Pigtail drain in place with scant purulence drainage Objective Data Vital Signs Vital Signs: Vital Signs - 24 hr 06/17/19 14:00 06/17/19 14:23 06/17/19 14:33 Temperature 36.9 C Pulse Rate 81 84 76 Respiratory Rate 20 20 20 Blood Pressure 143/67 H Pulse Oximetry 100 06/17/19 20:04 06/17/19 20:06 06/17/19 20:09 Temperature Pulse Rate 86 88 Respiratory Rate 20 20 Blood Pressure Pulse Oximetry 94 06/17/19 20:15 06/17/19 22:00 06/18/19 01:48 Temperature 36.1 C L Pulse Rate 84 76 87 Respiratory Rate 16 18 Blood Pressure 145/73 H Pulse Oximetry 100 06/18/19 01:53 06/18/19 06:00 06/18/19 08:46 Temperature 36.2 C L Pulse Rate 86 84 84 Respiratory Rate 18 22 H Blood Pressure 130/78 Pulse Oximetry 99 06/18/19 08:58 06/18/19 09:05 Temperature Pulse Rate 80 80 Respiratory Rate 18 18 Blood Pressure Pulse Oximetry Intake/Output Intake/Output: Intake & Output 06/15/19 06/16/19 06/17/19 06/18/19 23:59 23:59 23:59 23:59 Intake Total 4531 770 4457 320 Output Total 2501 1000 1300 620 Balance -1025 -280 460 -300 Meds/Results Medications: Active Medications Generic Name Dose Route Start Last Admin Trade Name Freq PRN Reason Stop Dose Admin Acetaminophen 650 mg 06/17/19 12:49 06/17/19 14:04 Tylenol Tablet PO 650 mg Q6H PRN Administration Mild Pain (1-3) or Fever Albuterol 2.5 mg 06/17/19 20:00 06/18/19 08:57 Albuterol Sulf Neb 2.5mg/0.5ml INHALATION 2.5 mg Q6HRT [facility] Administration Allopurinol 100 mg 06/08/19 21:00 06/18/19 08:46 Zyloprim PO 100 mg Q12HR [facility] Administration Bumetanide 2 mg 06/13/19 09:00 06/18/19 08:47 Bumex Inj IV PUSH 2 mg BID [facility] Administration Carvedilol 25 mg 06/08/19 21:00 06/18/19 08:46 Coreg PO 25 mg Q12HR [facility] Administration Epoetin Nixon 10,000 units 06/11/19 09:00 06/18/19 09:39 Epogen SUB-Q 10,000 units MoWeFr@0900 LYLE Administration Fluticasone Propionate 2 spray 06/08/19 21:00 06/17/19 20:15 Flonase 0.05% Nasal [place] NASAL 2 spray HS LYLE Administration Guaifenesin/Dextromethorphan 10 ml 06/10/19 13:18 06/17/19 09:22 Robitussin-Dm Syrup PO 10 ml Q4H PRN Administration Cough Levetiracetam 250 mg 06/08/19 21:00 06/18/19 08:46 Keppra Tablet PO 250 mg Q12HR [facility] Administration Montelukast Sodium 10 mg 06/09/19 09:00 06/18/19 08:46 Singulair PO 10 mg DAILY LYLE Administ
--- NOTE | 2019-06-18 13:23 | WPDONCPN ---
Progress Note: A&P Assessment and Plan (1) MDS (myelodysplastic syndrome), low grade: Code(s): D46.20 - Refractory anemia with excess of blasts, unspecified Status: Acute Assessment and Plan: 1. Plt count leveling off? 2. Will give another dose of IVIG today 3. maintain current orders over the w/e 4. CBC daily 5. If plt count cannot be kept up > 20k over the w/e, then proceed with transfer 6. right now she is stable and does not require blood products (2) Thrombocytopenia: Code(s): D69.6 - Thrombocytopenia, unspecified Status: Acute Assessment and Plan: transfuse 1 unit of SDP if plt count < 15k Review of Systems Review of Systems All systems reviewed & are unremarkable except as noted in HPI and below Exam Const: General: ill appearing, lethargic and tired appearing; No confusion Nutritional Appearance: underweight Orientation/consciousness: patient oriented x3, No confusion and lethargic HENMT: Head: normal to inspection General nose exam: Normal external nose present and Normal nares present Mouth: Yes Normal oral and palatal mucosa present, Yes oropharynx normal and Yes moist mucous membranes Throat: posterior oropharynx normal Neck: Neck: no lymphadenopathy and supple Resp: Effort & Inspection: normal respiratory effort Auscultation: diminished lung sounds GI: Inspection: normal to inspection Rectal Exam: deferred Other: perc drain in abd Skin: General skin exam: ecchymosis, petechiae and pallor Neuro: General: patient oriented x3 and No confusion Cranial nerves: Yes CN's II-XII intact bilaterally Cognition (Neuro): normal cognition Speech: normal speech Gait exam (Neuro): Assistive device used Motor exam (neuro): Abnormal motor strength present Extrem: General: pedal edema Psych: Mental Status: mental status grossly normal Speech and movement: Normal speech and movement present Affect: normal affect Objective Data Vital Signs Vital Signs: Vital Signs - 24 hr 06/17/19 14:00 06/17/19 14:23 06/17/19 14:33 Temperature 36.9 C Pulse Rate 81 84 76 Respiratory Rate 20 20 20 Blood Pressure 143/67 H Pulse Oximetry 100 06/17/19 20:04 06/17/19 20:06 06/17/19 20:09 Temperature Pulse Rate 86 88 Respiratory Rate 20 20 Blood Pressure Pulse Oximetry 94 06/17/19 20:15 06/17/19 22:00 06/18/19 01:48 Temperature 36.1 C L Pulse Rate 84 76 87 Respiratory Rate 16 18 Blood Pressure 145/73 H Pulse Oximetry 100 06/18/19 01:53 06/18/19 06:00 06/18/19 08:46 Temperature 36.2 C L Pulse Rate 86 84 84 Respiratory Rate 18 22 H Blood Pressure 130/78 Pulse Oximetry 99 06/18/19 08:58 06/18/19 09:05 06/18/19 11:30 Temperature Pulse Rate 80 80 137 H Respiratory Rate 18 18 18 Blood Pressure 132/88 Pulse Oximetry 95 Intake/Output Intake/Output: Intake & Output 06/15/19 06/16/19 06/17/19 06/18/19 23:59 23:59 23:59 23:59 Intake Total 1476 / 1476 720 / 720 1760 / 1760 320 / 320 Output Total 2501 / 2501 1000 / 1000 1300 / 1300 620 / 620 Balance -1025 / -1025 -280 / -280 460 / 460 -300 / -300 Meds/Results Medications: Active Medications Generic Name Dose Route Start Last Admin Trade Name Freq PRN Reason Stop Dose Admin Acetaminophen 650 mg 06/17/19 12:49 06/17/19 14:04 Tylenol Tablet PO 650 mg Q6H PRN Administration Mild Pain (1-3) or Fever Albuterol 2.5 mg 06/17/19 20:00 06/18/19 08:57 Albuterol Sulf Neb 2.5mg/0.5ml INHALATION 2.5 mg Q6HRT [facility] Administration Allopurinol 100 mg 06/08/19 21:00 06/18/19 08:46 Zyloprim PO 100 mg Q12HR LYLE Administration Bumetanide 2 mg 06/13/19 09:00 06/18/19 08:47 Bumex Inj IV PUSH 2 mg BID [facility] Administration Carvedilol 25 mg 06/08/19 21:00 06/18/19 08:46 Coreg PO 25 mg Q12HR LYLE Administration Epoetin Nixon 10,000 units 06/11/19 09:00 06/18/19 09:39 Epogen SUB-Q 10,000 units MoWeFr@0900 [facility] Administ
[2019-06-18] MEDS: FUROSEMIDE INJ 40 MG/4 ML VIAL 20 MG IV PUSH (14:09)
--- NOTE | 2019-06-18 17:32 | P.PNNP_ITS ---
Progress Note: A&P Assessment and Plan (1) Chronic kidney disease, stage 4 (severe): Code(s): N18.4 - Chronic kidney disease, stage 4 (severe) Status: Chronic Assessment and Plan: * creatinine better than baseline * baseline creatinine runs ~ 2.5 - 3.0mg/dl in the last year or so * due to hypertension and vascular disease * creatinine lower than baseline recently - this may be a dilutional value secondary to fluid retention - her poor oral intake and loss of muscle mass may partly explain this a s well * not opposed to PRN or scheduled diuretics (2) Diverticular disease of intestine with perforation and abscess: Code(s): K57.80 - Diverticulitis of intestine, part unspecified, with perforation and abscess without bleeding Status: Acute Assessment and Plan: * Surgery and Infectious Disease following. * s/p percutaneous drain placement for abscess * no need for antibiotics at this time (3) Hypertension: Qualifiers: Hypertension type: essential hypertension Qualified Code(s): I10 - Essential (primary) hypertension Code(s): I10 - Essential (primary) hypertension Status: Chronic Assessment and Plan: * reasonable control at this time * follow hemodynamics (4) SOB (shortness of breath): Code(s): R06.02 - Shortness of breath Status: Acute Assessment and Plan: * suspect due to fluid overload and possible anemia * getting PRN diuretics - not opposed to scheduled dosing * wean oxygen as tolerated (5) Hyponatremia: Code(s): E87.1 - Hypo-osmolality and hyponatremia Status: Acute Assessment and Plan: * mainly due to renal dysfunction and possibly fluid retention * started on fluid restriction * follow trend of sodium (6) Chronic anemia: Code(s): D64.9 - Anemia, unspecified Status: Acute Assessment and Plan: * multifactorial etiology: - previous JINA - known CKD - acute illness/inflammation - blood loss? * on Epogen (gets as an outpatient as well) * follow trend of H/H (7) MDS (myelodysplastic syndrome), low grade: Code(s): D46.20 - Refractory anemia with excess of blasts, unspecified Status: Acute Assessment and Plan: * Hem/Onc recommendations noted * IVIG today * follow platelet count (8) Generalized weakness: Code(s): R53.1 - Weakness Status: Acute Assessment and Plan: * due to acute illness and multiple hospitalizations * PT/OT as tolerated Will continue to follow Subjective Date/time seen: 06/18/19 17:32 Seems more weak/fatigued/tired at the time of my visit; IVIG again today per Hem/Onc recommendations; no other acute issues or problems voiced; abdominal pain seems controlled if not stable. Exam Narrative: Exam Narrative: General: WD/WN female in NAD Heart: normal S1 and S2; no rub Lungs: coarse with decreased breath sounds at bases Abdomen: soft, nontender, nondistended, positive bowel sounds Extremities: no cyanosis or clubbing; trace - 1+ edema Skin: warm and dry Objective Data Vital Signs Vital Signs: Vital Signs Temp Pulse Resp BP Pulse Ox 06/18/19 14:00 36.4 C 76 16 146/68 H 100 06/18/19 13:46 71 18 06/18/19 13:40 98 06/18/19 13:39 77 18 06/18/19 11:30 137 H 18 132/88 95 06/18/19 09:05
--- NOTE | 2019-06-18 17:32 | PM.PNNEP ---
Progress Note: A&P Assessment and Plan (1) Chronic kidney disease, stage 4 (severe): Code(s): N18.4 - Chronic kidney disease, stage 4 (severe) Status: Chronic Assessment and Plan: creatinine better than baseline baseline creatinine runs ~ 2.5 - 3.0mg/dl in the last year or so due to hypertension and vascular disease creatinine lower than baseline recently - this may be a dilutional value secondary to fluid retention - her poor oral intake and loss of muscle mass may partly explain this as well not opposed to PRN or scheduled diuretics (2) Diverticular disease of intestine with perforation and abscess: Code(s): K57.80 - Diverticulitis of intestine, part unspecified, with perforation and abscess without bleeding Status: Acute Assessment and Plan: Surgery and Infectious Disease following. s/p percutaneous drain placement for abscess no need for antibiotics at this time (3) Hypertension: Qualifiers: Hypertension type: essential hypertension Qualified Code(s): I10 - Essential (primary) hypertension Code(s): I10 - Essential (primary) hypertension Status: Chronic Assessment and Plan: reasonable control at this time follow hemodynamics (4) SOB (shortness of breath): Code(s): R06.02 - Shortness of breath Status: Acute Assessment and Plan: suspect due to fluid overload and possible anemia getting PRN diuretics - not opposed to scheduled dosing wean oxygen as tolerated (5) Hyponatremia: Code(s): E87.1 - Hypo-osmolality and hyponatremia Status: Acute Assessment and Plan: mainly due to renal dysfunction and possibly fluid retention started on fluid restriction follow trend of sodium (6) Chronic anemia: Code(s): D64.9 - Anemia, unspecified Status: Acute Assessment and Plan: multifactorial etiology: - previous JINA - known CKD - acute illness/inflammation - blood loss? on Epogen (gets as an outpatient as well) follow trend of H/H (7) MDS (myelodysplastic syndrome), low grade: Code(s): D46.20 - Refractory anemia with excess of blasts, unspecified Status: Acute Assessment and Plan: Hem/Onc recommendations noted IVIG today follow platelet count (8) Generalized weakness: Code(s): R53.1 - Weakness Status: Acute Assessment and Plan: due to acute illness and multiple hospitalizations PT/OT as tolerated Will continue to follow Subjective Date/time seen: 06/18/19 17:32 Seems more weak/fatigued/tired at the time of my visit; IVIG again today per Hem/Onc recommendations; no other acute issues or problems voiced; abdominal pain seems controlled if not stable. Exam Narrative: Exam Narrative: General: WD/WN female in NAD Heart: normal S1 and S2; no rub Lungs: coarse with decreased breath sounds at bases Abdomen: soft, nontender, nondistended, positive bowel sounds Extremities: no cyanosis or clubbing; trace - 1+ edema Skin: warm and dry Objective Data Vital Signs Vital Signs: Vital Signs Temp Pulse Resp BP Pulse Ox 06/18/19 14:00 36.4 C 76 16 146/68 H 100 06/18/19 13:46 71 18 06/18/19 13:40 98 06/18/19 13:39 77 18 06/18/19 11:30 137 H 18 132/88 95 06/18/19 09:05 80 18 06/18/19 08:58 80 18 06/18/19 08:46 84 06/18/19 06:00 36.2 C L 84 22 H 130/78 99 06/18/19 01:53 86 18 06/18/19 01:48 87 18 06/17/19 22:00 36.1 C L 76 16 145/73 H 100 06/17/19 20:15 84 06/17/19 20:09 88 20 06/17/19 20:06 94 06/17/19 20:04 86 20 Intake/Output Intake/Output: Intake & Output 06/15/19 06/16/19 06/17/19 06/18/19 23:59 23:59 23:59 23:59 Intake Total 0153 472 0455 520 Output Total 2501 1000 1300 945 Balance -1025 -280 460 -778 Meds/Results Medications: Active Medications Generic Name Dose
[2019-06-18] MEDS: FLUTICASONE PROPIONATE 0.05% NA SPR 16 GM BTL (*BKC) 2 SPRAY NASAL (21:15)
[2019-06-18] MEDS: GUAIFENESIN/DEXTROMETHORPHAN 10 ML UDC PO (21:16)
[2019-06-19] VITALS (13 sets, daily range): BP systolic 131–142; BP diastolic 69–78; PULSE 72–88; RESP 16–20; TEMP 36.4–37; O2SAT 94–100
[2019-06-19] MEDS: ALBUTEROL SULFATE NEB 2.5 MG/0.5 ML INH INHALATION ×4 (01:10→20:22)
[2019-06-19] MEDS: GUAIFENESIN/DEXTROMETHORPHAN 10 ML UDC PO ×2 (05:37→20:00)
[2019-06-19 08:52] LABS: Blood Urea Nitrogen 38 mg/dL (7-17); Calcium 8.4 mg/dL (8.4-10.2); Carbon Dioxide 28 mmol/L (22-30); Chloride 98 mmol/L (98-107); Estimated CRCL calculation 18 ml/min; Estimated Glomerular Filt Rate 22; Glucose 85 mg/dL (65-105); Potassium 4.2 mmol/L (3.4-5.0); Sodium 132 mmol/L (137-145)
[2019-06-19] MEDS: allopurinoL 100 MG TABLET PO ×2 (09:02→20:01)
[2019-06-19] MEDS: BUMETANIDE INJ 1 MG/4 ML VIAL 2 MG IV PUSH ×2 (09:03→17:05)
[2019-06-19] MEDS: VITAMIN B COMPLEX CAPSULE 1 CAP PO (09:04)
[2019-06-19] MEDS: carvediloL 25 MG TABLET PO ×2 (09:04→20:01)
[2019-06-19] MEDS: MONTELUKAST SODIUM 10 MG TABLET PO (09:04)
[2019-06-19] MEDS: CHOLECALCIFEROL 1,000 UNIT TABLET 1000 UNITS PO (09:04)
[2019-06-19] MEDS: levETIRAcetam 250 MG TABLET PO ×2 (09:04→20:01)
[2019-06-19 09:45] LABS: Basophils Percent Auto 0.3 % (0.2-1.2); Hematocrit 23.9 % (37.0-47.0); Hemoglobin 7.4 g/dL (12.0-15.0); Immature Granulocyte Absolute 0.01 K/mm3 (0.00-0.031); Immature Granulocyte Percent A 0.3 % (0-0.5); Immature Platelet Fraction Pct 14.3 % (0.9-11.2); Lymphocytes Absolute Auto 0.93 K/mm3 (0.9-3.2); Lymphocytes Percent Auto 24.3 % (18.3-44.2); Mean Corpuscular Hemoglobin 29.8 pg (26-34); Mean Corpuscular Volume 96.4 fl (80-100); Monocytes Absolute Auto 0.3 K/mm3 (0.1-0.6); Monocytes Percent Auto 7.6 % (2.6-8.5); Neutrophils Absolute Auto 2.5 K/mm3 (1.3-6.7); Neutrophils Percent Auto 66.5 % (45.5-73.1); Red Blood Count 2.48 M/mm3 (4.2-5.4); Red Cell Distribution Width 17.5 % (11.5-14.5); White Blood Count 3.8 K/mm3 (4.5-10.0)
[2019-06-19 09:46] LABS: Platelet Count Result 22 k/mm3 (150-375)
--- NOTE | 2019-06-19 10:01 | P.PNIM_ITS ---
Progress Note: A&P Assessment and Plan (1) Dyspnea: Qualifiers: Dyspnea type: shortness of breath Qualified Code(s): R06.02 - Shortness of breath Code(s): R06.00 - Dyspnea, unspecified Status: Acute Assessment and Plan: * Due to CHF, acute on chronic diastolic * Echo with moderate , NL LVEF, diastolic dysfuntion * Continue bumex bid per nephrology and replace K as needed (2) URI (upper respiratory infection): Qualifiers: URI type: unspecified URI Qualified Code(s): J06.9 - Acute upper respiratory infection, unspecified Code(s): J06.9 - Acute upper respiratory infection, unspecified Status: Acute Assessment and Plan: * Symptomatic treatment (3) Unresponsive episode: Code(s): R41.89 - Other symptoms and signs involving cognitive functions and awareness Status: Acute Assessment and Plan: * C/w seizure with postictal state. * Currently on Keppra 250mg q 12 h w/o recurrence. (4) Diverticular disease of intestine with perforation and abscess: Code(s): K57.80 - Diverticulitis of intestine, part unspecified, with perforation and abscess without bleeding Status: Acute Assessment and Plan: * Platelets 3, IR inserted drain 3 * Draining serosanguinous fluid, minimal amount still * Discussed with surgery and plan is to leave drain for now * 06/[address] revealed R pelvic abscess smaller with L no real change (5) Chronic anemia: Code(s): D64.9 - Anemia, unspecified Status: Acute Assessment and Plan: * Continue with Epogen MWF as ordered. * Known to have pancytopenia and had a bone marrow biopsy in 2014 that was unremarkable. * 06/12 platelets 13K, 16K; transfuse 2 U pheresed platelets * 06/13 platelets 23K * 06/14 platelets 8 K, 2 more units of pheresed platelets * 06/15 30K continue to monito r * 06/16 20K IV Ig per oncology * 06/17 hgb stable 7.4 and platelet essentially unchanged at 18K * 06/18 hgb still 7.4 and platelet 22K (6) Right knee pain: Qualifiers: Chronicity: acute Qualified Code(s): M25.561 - Pain in right knee Code(s): M25.561 - Pain in right knee Status: Acute Assessment and Plan: * Likely due to fall at facility * PT/OT * Monitor progress (7) Edema: Qualifiers: Edema type: unspecified Qualified Code(s): R60.9 - Edema, unspecified Code(s): R60.9 - Edema, unspecified Status: Acute Assessment and Plan: * Continue with lamin wraps to bilateral lower extremities. (8) Generalized weakness: Code(s): R53.1 - Weakness Status: Acute Assessment and Plan: * PT/OT (9) Chronic kidney disease, stage 4 (severe): Code(s): N18.4 - Chronic kidney disease, stage 4 (severe) Status: Chronic Assessment and Plan: * Continue to monitor * Avoid nephrotoxic drugs * Renal dose meds * 06/14, creatinine 1.9 which is actually better than at baseline * 06/18 2.2 (10) Hyponatremia: Code(s): E87.1 - Hypo-osmolality and hyponatremia Status: Acute Assessment and Plan: * Chronic and relatively stable * Urine Na 49 on 05/26/2019 * Fluid restriction * F/u lab, still 129 today 06/14 * 06/18 132 (11) Hypertension: Qualifiers: Hypertension type: essential hypertension Qualified Code(s): I10 - Essential (primary) hypertension Code(s): I10 - Essential (primary) hypertension Status: Chronic Assessment and Plan: * Hold clonidine and hy
--- NOTE | 2019-06-19 10:01 | PM.IMPN ---
Progress Note: A&P Assessment and Plan (1) Dyspnea: Qualifiers: Dyspnea type: shortness of breath Qualified Code(s): R06.02 - Shortness of breath Code(s): R06.00 - Dyspnea, unspecified Status: Acute Assessment and Plan: Due to CHF, acute on chronic diastolic Echo with moderate , NL LVEF, diastolic dysfuntion Continue bumex bid per nephrology and replace K as needed (2) URI (upper respiratory infection): Qualifiers: URI type: unspecified URI Qualified Code(s): J06.9 - Acute upper respiratory infection, unspecified Code(s): J06.9 - Acute upper respiratory infection, unspecified Status: Acute Assessment and Plan: Symptomatic treatment (3) Unresponsive episode: Code(s): R41.89 - Other symptoms and signs involving cognitive functions and awareness Status: Acute Assessment and Plan: C/w seizure with postictal state. Currently on Keppra 250mg q 12 h w/o recurrence. (4) Diverticular disease of intestine with perforation and abscess: Code(s): K57.80 - Diverticulitis of intestine, part unspecified, with perforation and abscess without bleeding Status: Acute Assessment and Plan: Platelets 3/4, IR inserted drain 3 Draining serosanguinous fluid, minimal amount still Discussed with surgery and plan is to leave drain for now 06/[address] revealed R pelvic abscess smaller with L no real change (5) Chronic anemia: Code(s): D64.9 - Anemia, unspecified Status: Acute Assessment and Plan: Continue with Epogen MWF as ordered. Known to have pancytopenia and had a bone marrow biopsy in 2014 that was unremarkable. 06/12 platelets 13K, 16K; transfuse 2 U pheresed platelets 06/13 platelets 23K 06/14 platelets 8 K, 2 more units of pheresed platelets 06/15 30K continue to monito r 06/16 20K IV Ig per oncology 06/17 hgb stable 7.4 and platelet essentially unchanged at 18K 06/18 hgb still 7.4 and platelet 22K (6) Right knee pain: Qualifiers: Chronicity: acute Qualified Code(s): M25.561 - Pain in right knee Code(s): M25.561 - Pain in right knee Status: Acute Assessment and Plan: Likely due to fall at facility PT/OT Monitor progress (7) Edema: Qualifiers: Edema type: unspecified Qualified Code(s): R60.9 - Edema, unspecified Code(s): R60.9 - Edema, unspecified Status: Acute Assessment and Plan: Continue with lamin wraps to bilateral lower extremities. (8) Generalized weakness: Code(s): R53.1 - Weakness Status: Acute Assessment and Plan: PT/OT (9) Chronic kidney disease, stage 4 (severe): Code(s): N18.4 - Chronic kidney disease, stage 4 (severe) Status: Chronic Assessment and Plan: Continue to monitor Avoid nephrotoxic drugs Renal dose meds 06/14, creatinine 1.9 which is actually better than at baseline 06/18 2.2 (10) Hyponatremia: Code(s): E87.1 - Hypo-osmolality and hyponatremia Status: Acute Assessment and Plan: Chronic and relatively stable Urine Na 49 on 05/26/2019 Fluid restriction F/u lab, still 129 today 06/14 06/18 132 (11) Hypertension: Qualifiers: Hypertension type: essential hypertension Qualified Code(s): I10 - Essential (primary) hypertension Code(s): I10 - Essential (primary) hypertension Status: Chronic Assessment and Plan: Hold clonidine and hydralazine but have restarted Coreg 06/14 Subjective Date/time seen: 06/19/19 10:01 Interval history: Date of visit 06/18. 78-year-old white female myelodysplasia, diverticular abscess, admitted with possible seizure. Now on Keppra and developed acute on chronic diastolic heart failure. Receiving prn platelets for thrombocytopenia with her myelodysplasia. Still some short of breath but better. having bms but still not eating well. Exam Narrative: Exam N
--- NOTE | 2019-06-19 11:00 | P.PNNP_ITS ---
Progress Note: A&P Assessment and Plan (1) Chronic kidney disease, stage 4 (severe): Code(s): N18.4 - Chronic kidney disease, stage 4 (severe) Status: Chronic Assessment and Plan: * creatinine better than baseline * baseline creatinine runs ~ 2.5 - 3.0mg/dl in the last year or so * due to hypertension and vascular disease * creatinine lower than baseline recently - this may be a dilutional value secondary to fluid retention - her poor oral intake and loss of muscle mass may partly explain this a s well * her 24hr urine collection demonstrate a GFR/Crl of 12.8cc/min.... - this may partly explain her poor oral intake and fatigue - however, with her ongoing medical issue, this reading may not be completely accurate - AND, dialysis with her low platelet count, abdominal infection...etc may be challenging... (2) Diverticular disease of intestine with perforation and abscess: Code(s): K57.80 - Diverticulitis of intestine, part unspecified, with perforation and abscess without bleeding Status: Acute Assessment and Plan: * Surgery and Infectious Disease following * s/p percutaneous drain placement for abscess * no need for antibiotics at this time * eventually surgery for definitive treatment (3) Hypertension: Qualifiers: Hypertension type: essential hypertension Qualified Code(s): I10 - Essential (primary) hypertension Code(s): I10 - Essential (primary) hypertension Status: Chronic Assessment and Plan: * reasonable control at this time * follow hemodynamics (4) SOB (shortness of breath): Code(s): R06.02 - Shortness of breath Status: Acute Assessment and Plan: * suspect due to fluid overload and possible anemia * getting scheduled bumex (2mg IV bid) * wean oxygen as tolerated (5) Hyponatremia: Code(s): E87.1 - Hypo-osmolality and hyponatremia Status: Acute Assessment and Plan: * mainly due to renal dysfunction and possibly fluid retention * started on fluid restriction * follow trend of sodium (6) Chronic anemia: Code(s): D64.9 - Anemia, unspecified Status: Acute Assessment and Plan: * multifactorial etiology: - previous JINA - known CKD - acute illness/inflammation - blood loss? * on Epogen (gets as an outpatient as well) * follow trend of H/H (7) MDS (myelodysplastic syndrome), low grade: Code(s): D46.20 - Refractory anemia with excess of blasts, unspecified Status: Acute Assessment and Plan: * Hem/Onc recommendations noted * IVIG x 2 * follow platelet count (8) Generalized weakness: Code(s): R53.1 - Weakness Status: Acute Assessment and Plan: * due to acute illness and multiple hospitalizations * PT/OT as tolerated Will continue to follow Subjective Date/time seen: 06/19/19 11:00 Still feels weak and appetite remains quite poor; also still has some shortness of breath but seems somewhat better overall; no other acute issues to report at this time. Exam Narrative: Exam Narrative: General: WD/WN female in NAD Heart: normal S1 and S2; no rub Lungs: coarse with decreased breath sounds at bases Abdomen: soft, nontender, nondistended, positive bowel sounds Extremities: no cyanosis or clubbing; trace - 1+ edema Skin: no rash Objective Data Vital Signs Vital Signs: Vital
--- NOTE | 2019-06-19 11:00 | PM.PNNEP ---
Progress Note: A&P Assessment and Plan (1) Chronic kidney disease, stage 4 (severe): Code(s): N18.4 - Chronic kidney disease, stage 4 (severe) Status: Chronic Assessment and Plan: creatinine better than baseline baseline creatinine runs ~ 2.5 - 3.0mg/dl in the last year or so due to hypertension and vascular disease creatinine lower than baseline recently - this may be a dilutional value secondary to fluid retention - her poor oral intake and loss of muscle mass may partly explain this as well her 24hr urine collection demonstrate a GFR/Crl of 12.8cc/min.... - this may partly explain her poor oral intake and fatigue - however, with her ongoing medical issue, this reading may not be completely accurate - AND, dialysis with her low platelet count, abdominal infection...etc may be challenging... (2) Diverticular disease of intestine with perforation and abscess: Code(s): K57.80 - Diverticulitis of intestine, part unspecified, with perforation and abscess without bleeding Status: Acute Assessment and Plan: Surgery and Infectious Disease following s/p percutaneous drain placement for abscess no need for antibiotics at this time eventually surgery for definitive treatment (3) Hypertension: Qualifiers: Hypertension type: essential hypertension Qualified Code(s): I10 - Essential (primary) hypertension Code(s): I10 - Essential (primary) hypertension Status: Chronic Assessment and Plan: reasonable control at this time follow hemodynamics (4) SOB (shortness of breath): Code(s): R06.02 - Shortness of breath Status: Acute Assessment and Plan: suspect due to fluid overload and possible anemia getting scheduled bumex (2mg IV bid) wean oxygen as tolerated (5) Hyponatremia: Code(s): E87.1 - Hypo-osmolality and hyponatremia Status: Acute Assessment and Plan: mainly due to renal dysfunction and possibly fluid retention started on fluid restriction follow trend of sodium (6) Chronic anemia: Code(s): D64.9 - Anemia, unspecified Status: Acute Assessment and Plan: multifactorial etiology: - previous JINA - known CKD - acute illness/inflammation - blood loss? on Epogen (gets as an outpatient as well) follow trend of H/H (7) MDS (myelodysplastic syndrome), low grade: Code(s): D46.20 - Refractory anemia with excess of blasts, unspecified Status: Acute Assessment and Plan: Hem/Onc recommendations noted IVIG x 2 follow platelet count (8) Generalized weakness: Code(s): R53.1 - Weakness Status: Acute Assessment and Plan: due to acute illness and multiple hospitalizations PT/OT as tolerated Will continue to follow Subjective Date/time seen: 06/19/19 11:00 Still feels weak and appetite remains quite poor; also still has some shortness of breath but seems somewhat better overall; no other acute issues to report at this time. Exam Narrative: Exam Narrative: General: WD/WN female in NAD Heart: normal S1 and S2; no rub Lungs: coarse with decreased breath sounds at bases Abdomen: soft, nontender, nondistended, positive bowel sounds Extremities: no cyanosis or clubbing; trace - 1+ edema Skin: no rash Objective Data Vital Signs Vital Signs: Vital Signs Temp Pulse Resp BP Pulse Ox 06/19/19 09:12 82 16 06/19/19 09:05 87 16 95 06/19/19 09:04 80 06/19/19 06:00 36.4 C L 88 20 131/69 99 06/19/19 01:20 73 18 06/19/19 01:10 72 18 06/18/19 22:00 36.1 C L 90 21 H 155/78 H 100 06/18/19 21:15 80 06/18/19 19:15 75 18 06/18/19 19:11 98 06/18/19 19:05 75 18 06/18/19 14:00 36.4 C 76 16 146/68 H 100 06/18/19 13:46 71 18 06/18/19 13:40 98 06/18/19 13:39 77 18 06/18/19 11:30 137 H 18 132/88 9
--- NOTE | 2019-06-19 11:43 | PM.PNGS ---
Progress Note: A&P Assessment and Plan (1) Diverticular disease of intestine with perforation and abscess: Code(s): K57.80 - Diverticulitis of intestine, part unspecified, with perforation and abscess without bleeding Status: Acute Assessment and Plan: CT-guided percutaneous drain in place and still putting out occasional scant purulence fluid. ( 29 cc out last 24 hr.) Would recommend continuing to monitor drain output until it is completely dry and serous for at least several days. No further antibiotics necessary at this time unless she begins having fevers, worsening abdominal pains, or other recurrent symptoms. We will delay surgery until hemoglobin and platelets have improved. (2) MDS (myelodysplastic syndrome), low grade: Code(s): D46.20 - Refractory anemia with excess of blasts, unspecified Status: Acute Assessment and Plan: Patient being treated by Dr. Pahm. Received IVIG and continuing to follow platelet levels. Additional Plan Pancreatic lesion noted on CT. Plan for further work-up once more stable. Subjective Subjective Date/Time Seen: 06/19/19 11:43 Patient up in chair. Denies much abdominal pain today. Is tolerating a low fiber diet. Denies fever. She did have a bowel movement yesterday. Review of Systems Review of Systems: All systems reviewed & are unremarkable except as noted in HPI and below Constitutional: Constitutional: Reports as per HPI, Denies chills, Denies excessive sweating, Reports fatigue, Denies fever(s), Denies headache(s), Reports lethargy, Reports malaise, Reports poor appetite and Reports weakness Eyes: Eyes: Denies change in vision and Denies loss of vision ENT: Denies dysphagia, Denies dizziness and Denies headache(s) Cardiovascular: Cardiovascular: Denies chest pain, Reports syncope, Denies leg edema (Reports leg swelling has improved since discharge), Denies lightheadedness, Denies radiating jaw, neck or arm pain and Denies dyspnea Respiratory: Respiratory: Reports cough, Denies dyspnea and Denies wheezing Gastrointestinal: Gastrointestinal: Reports as per HPI, Denies abdominal pain, Denies constipation, Denies GI cramping, Denies dysphagia, Denies diarrhea, Denies nausea and Denies vomiting Musculoskeletal: Musculoskeletal: Denies deformity, Denies joint swelling, Denies radiating pain into limb, Denies tingling and Reports other (Right knee pain after fall) Integumentary/Breasts: Skin/Breast: Denies pruritus, Denies wounds and Denies jaundice Psychiatric: Psychiatric: Denies anxiety, Denies confusion and Denies depression Allergic/Immunologic: Allergic/Immunologic: Denies wheezing Exam Const: General: comfortable, no acute distress, awake, Physically active, ill appearing (chronically) other (thin, cachetic) and tired appearing; No confusion Nutritional Appearance: average body habitus Orientation/consciousness: patient oriented x3 and No confusion Neck: Neck: normal visual inspection and full ROM Resp: Effort & Inspection: normal respiratory effort, able to speak in complete sentences, no respiratory distress and tachypneic Auscultation: diminished lung sounds on the right throughout and other (CTA other than noted) GI: Inspection: non-distended, incision ( Purulent fluid in catheter bag, minimal output last 2 days.), scar (No obvious abdominal scars) and other (mild distention, unchanged) Auscultation: normal bowel sounds Rectal Exam: deferred Other: Pigtail drain in place with scant purulence drainage Urinary Catheter: Urinary Catheter: patent and draining and urine clear Skin: General skin exam: normal color and no rashes or lesions noted Neuro: General: patient oriented x3, moves all extremities, no focal motor deficits, No confusion and Unable to assess gait Cranial nerves: Yes CN's II-XII intact bilaterally Cognition (Neuro): normal cognition Speech: normal speech Gait exam (Neuro): Unable to assess gait Psych: Appe
--- NOTE | 2019-06-19 15:17 | WPDONCPN ---
Progress Note: A&P Assessment and Plan (1) MDS (myelodysplastic syndrome), low grade: Code(s): D46.20 - Refractory anemia with excess of blasts, unspecified Status: Acute Assessment and Plan: Pancytopenia secondary to it (2) Thrombocytopenia: Code(s): D69.6 - Thrombocytopenia, unspecified Status: Acute Assessment and Plan: Platelet count today 22K after 2 days of IVig. No significant improvement. However, no active bleeding. Transfuse platelet if active bleeding or count <20K (3) Diverticular disease of intestine with perforation and abscess: Code(s): K57.80 - Diverticulitis of intestine, part unspecified, with perforation and abscess without bleeding Status: Acute Assessment and Plan: Managed by surgery. Still has minimal purulent discharge in drain. Not on abx. Review of Systems Review of Systems All systems reviewed & are unremarkable except as noted in HPI and below Exam Const: General: cooperative, alert and in distress HENMT: Head: normal to inspection Eyes: General: appearance normal, both eyes and all related structures Pupils: Equal, round and reactive pupils present Chest: Chest palpation & inspection: normal inspection of the chest Resp: Effort & Inspection: normal respiratory effort GI: Auscultation: normoactive bowel sounds Other: Drain present. Extrem: General: normal to inspection Objective Data Vital Signs Vital Signs: Vital Signs - 24 hr 06/18/19 19:05 06/18/19 19:11 06/18/19 19:15 Temperature Pulse Rate 75 75 Respiratory Rate 18 18 Blood Pressure Pulse Oximetry 98 06/18/19 21:15 06/18/19 22:00 06/19/19 01:10 Temperature 36.1 C L Pulse Rate 80 90 72 Respiratory Rate 21 H 18 Blood Pressure 155/78 H Pulse Oximetry 100 06/19/19 01:20 06/19/19 06:00 06/19/19 09:04 Temperature 36.4 C L Pulse Rate 73 88 80 Respiratory Rate 18 20 Blood Pressure 131/69 Pulse Oximetry 99 06/19/19 09:05 06/19/19 09:12 06/19/19 14:00 Temperature 37.0 C Pulse Rate 87 82 86 Respiratory Rate 16 16 20 Blood Pressure 142/78 H Pulse Oximetry 95 100 Intake/Output Intake/Output: Intake & Output 06/16/19 06/17/19 06/18/1920 23:59 23:59 23:59 23:59 Intake Total 720 1760 990 480 Output Total 1000 1300 959 515 Balance -280 460 31 -35 Meds/Results Medications: Active Medications Generic Name Dose Route Start Last Admin Trade Name Freq PRN Reason Stop Dose Admin Acetaminophen 650 mg 06/17/19 12:49 06/17/19 14:04 Tylenol Tablet PO 650 mg Q6H PRN Administration Mild Pain (1-3) or Fever Albuterol 2.5 mg 06/17/19 20:00 06/19/19 09:04 Albuterol Sulf Neb 2.5mg/0.5ml INHALATION 2.5 mg Q6HRT LYLE Administration Allopurinol 100 mg 06/08/19 21:00 06/19/19 09:02 Zyloprim PO 100 mg Q12HR LYLE Administration Bumetanide 2 mg 06/13/19 09:00 06/19/19 09:03 Bumex Inj IV PUSH 2 mg BID LYLE Administration Carvedilol 25 mg 06/08/19 21:00 06/19/19 09:04 Coreg PO 25 mg Q12HR LYLE Administration Epoetin [place] 10,000 units 06/11/19 09:00 06/18/19 09:39 Epogen SUB-Q 10,000 units [id number] LYLE Administration Fluticasone Propionate 2 spray 06/08/19 21:00 06/18/19 21:15 Flonase 0.05% Nasal [place] NASAL 2 spray HS LYLE Administration Guaifenesin/Dextromethorphan 10 ml 06/10/19 13:18 06/19/19 05:37 Robitussin-Dm Syrup PO 10 ml Q4H PRN Administration Cough Levetiracetam 250 mg 06/08/19 21:00 06/19/19 09:04 Keppra Tablet PO 250 mg Q12HR LYLE Administration Montelukast Sodium 10 mg 06/09/19 09:00 06/19/19 09:04 Singulair PO 10 mg DAILY LYLE Administration Neomycin/Polymyxin/Bacitracin 1 applic 06/10/19 14:36 06/10/19 21:47 Triple Antibiotic Ointment TOPICAL 1 applic PRN PRN Administration Dry Skin Ondansetron HCl 4 mg 06/08/19 18:39 Zofran Inj IV PUSH Q6H PRN Nausea An
[2019-06-19] MEDS: FLUTICASONE PROPIONATE 0.05% NA SPR 16 GM BTL (*BKC) 2 SPRAY NASAL (20:00)
[2019-06-20] VITALS (13 sets, daily range): BP systolic 128–147; BP diastolic 73–88; PULSE 77–109; RESP 16–21; TEMP 36–36.3; O2SAT 96–100
[2019-06-20] MEDS: GUAIFENESIN/DEXTROMETHORPHAN 10 ML UDC PO (02:20)
[2019-06-20] MEDS: ALBUTEROL SULFATE NEB 2.5 MG/0.5 ML INH INHALATION ×4 (02:29→19:47)
[2019-06-20 05:27] LABS: Basophils Percent Auto 0.2 % (0.2-1.2); Eosinophils Absolute Auto 0.1 K/mm3 (0-0.3); Eosinophils Percent Auto 1.2 % (0-4.4); Hematocrit 23.6 % (37.0-47.0); Hemoglobin 7.2 g/dL (12.0-15.0); Immature Granulocyte Absolute 0.02 K/mm3 (0.00-0.031); Immature Granulocyte Percent A 0.5 % (0-0.5); Immature Platelet Fraction Pct 15.1 % (0.9-11.2); Lymphocytes Absolute Auto 1.03 K/mm3 (0.9-3.2); Lymphocytes Percent Auto 24.1 % (18.3-44.2); Mean Corpuscular HGB Conc 30.5 g/dl (32-36); Mean Corpuscular Volume 95.2 fl (80-100); Monocytes Absolute Auto 0.3 K/mm3 (0.1-0.6); Monocytes Percent Auto 6.8 % (2.6-8.5); Neutrophils Absolute Auto 2.9 K/mm3 (1.3-6.7); Neutrophils Percent Auto 67.2 % (45.5-73.1); Platelet Count Result 27 k/mm3 (150-375); Red Blood Count 2.48 M/mm3 (4.2-5.4); Red Cell Distribution Width 17.5 % (11.5-14.5); White Blood Count 4.3 K/mm3 (4.5-10.0)
[2019-06-20 05:46] LABS: Blood Urea Nitrogen 40 mg/dL (7-17); Calcium 8.5 mg/dL (8.4-10.2); Carbon Dioxide 29 mmol/L (22-30); Chloride 99 mmol/L (98-107); Estimated CRCL calculation 19 ml/min; Estimated Glomerular Filt Rate 23; Glucose 90 mg/dL (65-105); Potassium 3.9 mmol/L (3.4-5.0); Sodium 131 mmol/L (137-145)
[2019-06-20] MEDS: allopurinoL 100 MG TABLET PO ×2 (08:23→20:31)
[2019-06-20] MEDS: MONTELUKAST SODIUM 10 MG TABLET PO (08:23)
[2019-06-20] MEDS: CHOLECALCIFEROL 1,000 UNIT TABLET 1000 UNITS PO (08:23)
[2019-06-20] MEDS: carvediloL 25 MG TABLET PO ×2 (08:23→20:32)
[2019-06-20] MEDS: VITAMIN B COMPLEX CAPSULE 1 CAP PO (08:23)
[2019-06-20] MEDS: levETIRAcetam 250 MG TABLET PO ×2 (08:23→20:31)
[2019-06-20] MEDS: BUMETANIDE INJ 1 MG/4 ML VIAL 2 MG IV PUSH (08:25)
[2019-06-20] MEDS: NEOMYCIN/POLYMYXIN/BACITRACIN OINTMENT 15 GM TUBE 1 APPLIC TOPICAL (08:40)
--- NOTE | 2019-06-20 08:49 | P.PNIM_ITS ---
Progress Note: A&P Assessment and Plan (1) Dyspnea: Qualifiers: Dyspnea type: shortness of breath Qualified Code(s): R06.02 - Shortness of breath Code(s): R06.00 - Dyspnea, unspecified Status: Acute Assessment and Plan: * Due to CHF, acute on chronic diastolic * Echo with moderate , NL LVEF, diastolic dysfuntion * Continue bumex bid and change to po and replace K as needed (2) URI (upper respiratory infection): Qualifiers: URI type: unspecified URI Qualified Code(s): J06.9 - Acute upper respiratory infection, unspecified Code(s): J06.9 - Acute upper respiratory infection, unspecified Status: Acute Assessment and Plan: * Symptomatic treatment (3) Unresponsive episode: Code(s): R41.89 - Other symptoms and signs involving cognitive functions and awareness Status: Acute Assessment and Plan: * C/w seizure with postictal state. * Currently on Keppra 250mg q 12 h w/o recurrence. (4) Diverticular disease of intestine with perforation and abscess: Code(s): K57.80 - Diverticulitis of intestine, part unspecified, with perforation and abscess without bleeding Status: Acute Assessment and Plan: * Platelets 3, IR inserted drain 3 * Draining serosanguinous fluid, minimal amount still * Discussed with surgery and plan is to leave drain for now * 06/[address] revealed R pelvic abscess smaller with L no real change * follow with repeat CT later date (5) Chronic anemia: Code(s): D64.9 - Anemia, unspecified Status: Acute Assessment and Plan: * Continue with Epogen MWF as ordered. * Known to have pancytopenia and had a bone marrow biopsy in 2014 that was unremarkable. * 06/12 platelets 13K, 16K; transfuse 2 U pheresed platelets * 06/13 platelets 23K * 06/14 platelets 8 K, 2 more units of pheresed platelets * 06/15 30K continue to monito r * 06/16 20K IV Ig per oncology * 06/17 hgb stable 7.4 and platelet essentially unchanged at 18K * 06/18 hgb still 7.4 and platelet 22K * 06/19 hgb 7.2 and platelet 27K (6) Right knee pain: Qualifiers: Chronicity: acute Qualified Code(s): M25.561 - Pain in right knee Code(s): M25.561 - Pain in right knee Status: Acute Assessment and Plan: * Likely due to fall at facility * PT/OT * Monitor progress (7) Edema: Qualifiers: Edema type: unspecified Qualified Code(s): R60.9 - Edema, unspecified Code(s): R60.9 - Edema, unspecified Status: Acute Assessment and Plan: * resolved with diuretics and lamin wraps (8) Generalized weakness: Code(s): R53.1 - Weakness Status: Acute Assessment and Plan: * PT/OT (9) Chronic kidney disease, stage 4 (severe): Code(s): N18.4 - Chronic kidney disease, stage 4 (severe) Status: Chronic Assessment and Plan: * Continue to monitor * Avoid nephrotoxic drugs * Renal dose meds * 06/14, creatinine 1.9 which is actually better than at baseline * 06/19 2.1 and stable * (10) Hyponatremia: Code(s): E87.1 - Hypo-osmolality and hyponatremia Status: Acute Assessment and Plan: * Chronic and relatively stable * Urine Na 49 on 05/26/2019 * Fluid restriction * F/u lab, still 129 today 06/14 * 06/19 131 (11) Hypertension: Qualifiers: Hypertension type: essential hypertension Qualified Code(s): I10 - Essential (primary) hypertension Code(s): I10 - Essential (primary) hypertension
--- NOTE | 2019-06-20 08:49 | PM.IMPN ---
Progress Note: A&P Assessment and Plan (1) Dyspnea: Qualifiers: Dyspnea type: shortness of breath Qualified Code(s): R06.02 - Shortness of breath Code(s): R06.00 - Dyspnea, unspecified Status: Acute Assessment and Plan: Due to CHF, acute on chronic diastolic Echo with moderate , NL LVEF, diastolic dysfuntion Continue bumex bid and change to po and replace K as needed (2) URI (upper respiratory infection): Qualifiers: URI type: unspecified URI Qualified Code(s): J06.9 - Acute upper respiratory infection, unspecified Code(s): J06.9 - Acute upper respiratory infection, unspecified Status: Acute Assessment and Plan: Symptomatic treatment (3) Unresponsive episode: Code(s): R41.89 - Other symptoms and signs involving cognitive functions and awareness Status: Acute Assessment and Plan: C/w seizure with postictal state. Currently on Keppra 250mg q 12 h w/o recurrence. (4) Diverticular disease of intestine with perforation and abscess: Code(s): K57.80 - Diverticulitis of intestine, part unspecified, with perforation and abscess without bleeding Status: Acute Assessment and Plan: Platelets 3/, IR inserted drain 3/ Draining serosanguinous fluid, minimal amount still Discussed with surgery and plan is to leave drain for now 06/[address] revealed R pelvic abscess smaller with L no real change follow with repeat CT later date (5) Chronic anemia: Code(s): D64.9 - Anemia, unspecified Status: Acute Assessment and Plan: Continue with Epogen MWF as ordered. Known to have pancytopenia and had a bone marrow biopsy in 2014 that was unremarkable. 06/12 platelets 13K, 16K; transfuse 2 U pheresed platelets 06/13 platelets 23K 06/14 platelets 8 K, 2 more units of pheresed platelets 06/15 30K continue to monito r 06/16 20K IV Ig per oncology 06/17 hgb stable 7.4 and platelet essentially unchanged at 18K 06/18 hgb still 7.4 and platelet 22K 06/19 hgb 7.2 and platelet 27K (6) Right knee pain: Qualifiers: Chronicity: acute Qualified Code(s): M25.561 - Pain in right knee Code(s): M25.561 - Pain in right knee Status: Acute Assessment and Plan: Likely due to fall at facility PT/OT Monitor progress (7) Edema: Qualifiers: Edema type: unspecified Qualified Code(s): R60.9 - Edema, unspecified Code(s): R60.9 - Edema, unspecified Status: Acute Assessment and Plan: resolved with diuretics and lamin wraps (8) Generalized weakness: Code(s): R53.1 - Weakness Status: Acute Assessment and Plan: PT/OT (9) Chronic kidney disease, stage 4 (severe): Code(s): N18.4 - Chronic kidney disease, stage 4 (severe) Status: Chronic Assessment and Plan: Continue to monitor Avoid nephrotoxic drugs Renal dose meds 06/14, creatinine 1.9 which is actually better than at baseline 06/19 2.1 and stable (10) Hyponatremia: Code(s): E87.1 - Hypo-osmolality and hyponatremia Status: Acute Assessment and Plan: Chronic and relatively stable Urine Na 49 on 05/26/2019 Fluid restriction F/u lab, still 129 today 06/14 06/19 131 (11) Hypertension: Qualifiers: Hypertension type: essential hypertension Qualified Code(s): I10 - Essential (primary) hypertension Code(s): I10 - Essential (primary) hypertension Status: Chronic Assessment and Plan: Hold clonidine and hydralazine but restarted Coreg 06/14 Subjective Date/time seen: 06/20/19 08:49 Interval history: Date of visit 06/19. 78-year-old white female myelodysplasia, diverticular abscess, admitted with possible seizure. Now on Keppra and developed acute on chronic diastolic heart failure. Receiving prn platelets for thrombocytopenia with her myelodysplasia. Less sob and edema No bm 06/18 and no abd titus
--- NOTE | 2019-06-20 15:28 | PM.PNGS ---
Progress Note: A&P Assessment and Plan (1) Diverticular disease of intestine with perforation and abscess: Code(s): K57.80 - Diverticulitis of intestine, part unspecified, with perforation and abscess without bleeding Status: Acute Assessment and Plan: CT-guided percutaneous drain in place and still putting out occasional scant purulence fluid. ( 20 cc out last 24 hr.) Would recommend continuing to monitor drain output until it is completely dry and serous for at least several days. No further antibiotics necessary at this time unless she begins having fevers, worsening abdominal pains, or other recurrent symptoms. We will delay surgery until hemoglobin and platelets have improved. (2) MDS (myelodysplastic syndrome), low grade: Code(s): D46.20 - Refractory anemia with excess of blasts, unspecified Status: Acute Assessment and Plan: Patient being treated by Dr. Pham. Received IVIG and continuing to follow platelet levels. Additional Plan Pancreatic lesion noted on CT. Plan for further work-up once more stable. Subjective Subjective Date/Time Seen: 06/20/19 15:00 Patient is sleeping when I entered the room. Nurse reports she is doing well. No complaints of significant pain. Platelets are low better today. Review of Systems Review of Systems: All systems reviewed & are unremarkable except as noted in HPI and below Constitutional: Constitutional: Reports as per HPI, Denies chills, Denies excessive sweating, Reports fatigue, Denies fever(s), Denies headache(s), Reports lethargy, Reports malaise, Reports poor appetite and Reports weakness Eyes: Eyes: Denies change in vision and Denies loss of vision ENT: Denies dysphagia, Denies dizziness and Denies headache(s) Cardiovascular: Cardiovascular: Denies chest pain, Reports syncope, Denies leg edema (Reports leg swelling has improved since discharge), Denies lightheadedness, Denies radiating jaw, neck or arm pain and Denies dyspnea Respiratory: Respiratory: Reports cough, Denies dyspnea and Denies wheezing Gastrointestinal: Gastrointestinal: Reports as per HPI, Denies abdominal pain, Denies constipation, Denies GI cramping, Denies dysphagia, Denies diarrhea, Denies nausea and Denies vomiting Musculoskeletal: Musculoskeletal: Denies deformity, Denies joint swelling, Denies radiating pain into limb, Denies tingling and Reports other (Right knee pain after fall) Integumentary/Breasts: Skin/Breast: Denies pruritus, Denies wounds and Denies jaundice Neurologic: Denies confusion, Denies dizziness, Reports syncope, Denies headache(s), Denies loss of vision, Denies tingling, Denies tremor(s) and Reports weakness Psychiatric: Psychiatric: Denies anxiety, Denies confusion and Denies depression Endocrine: Endocrine: Denies cold intolerance, Denies excessive sweating, Reports fatigue and Denies heat intolerance Allergic/Immunologic: Allergic/Immunologic: Denies wheezing Exam Const: General: comfortable, no acute distress, awake, Physically active, ill appearing (chronically) other (thin, cachetic) and tired appearing; No confusion Nutritional Appearance: average body habitus Orientation/consciousness: patient oriented x3 and No confusion Neck: Neck: normal visual inspection and full ROM Resp: Effort & Inspection: normal respiratory effort, able to speak in complete sentences, no respiratory distress and tachypneic Auscultation: diminished lung sounds on the right throughout and other (CTA other than noted) GI: Inspection: non-distended, incision ( Purulent fluid in catheter bag, minimal output last 2 days.), scar (No obvious abdominal scars) and other (mild distention, unchanged) Auscultation: normal bowel sounds Rectal Exam: deferred Other: Pigtail drain in place with scant purulence drainage Urinary Catheter: Urinary Catheter: patent and draining and urine clear Skin: General skin exam: normal color and no rashes or lesions noted Objec
--- NOTE | 2019-06-20 15:36 | P.PNNP_ITS ---
Progress Note: A&P Assessment and Plan (1) Chronic kidney disease, stage 4 (severe): Code(s): N18.4 - Chronic kidney disease, stage 4 (severe) Status: Chronic Assessment and Plan: * baseline creatinine runs ~ 2.5 - 3.0mg/dl in the last year or so * due to hypertension and vascular disease * creatinine lower than baseline recently - this may be a dilutional value secondary to previous fluid retention - her poor oral intake and loss of muscle mass may partly explain this as well * her 24hr urine collection demonstrate a GFR/Crl of 12.8cc/min.... - this may partly explain her poor oral intake and fatigue - however, with her ongoing medical issues, this reading may not be completely accurate - AND, dialysis with her low platelet count, abdominal infection...etc may be challenging... * continue supportive therapy (2) Diverticular disease of intestine with perforation and abscess: Code(s): K57.80 - Diverticulitis of intestine, part unspecified, with perforation and abscess without bleeding Status: Acute Assessment and Plan: * Surgery and Infectious Disease following * s/p percutaneous drain placement for abscess * no need for antibiotics at this time * eventually surgery for definitive treatment (3) Hypertension: Qualifiers: Hypertension type: essential hypertension Qualified Code(s): I10 - Essential (primary) hypertension Code(s): I10 - Essential (primary) hypertension Status: Chronic Assessment and Plan: * reasonable control at this time * follow hemodynamics (4) SOB (shortness of breath): Code(s): R06.02 - Shortness of breath Status: Acute Assessment and Plan: * suspect due to fluid overload and possible anemia * getting scheduled bumex (2mg po bid) * wean oxygen as tolerated * clinically seems better (5) Hyponatremia: Code(s): E87.1 - Hypo-osmolality and hyponatremia Status: Acute Assessment and Plan: * mainly due to renal dysfunction and possibly fluid retention * started on fluid restriction * follow trend of sodium (6) Chronic anemia: Code(s): D64.9 - Anemia, unspecified Status: Acute Assessment and Plan: * multifactorial etiology: - previous JINA - known CKD - acute illness/inflammation - blood loss? - MDS(?) * on Epogen (gets as an outpatient as well) * follow trend of H/H (7) MDS (myelodysplastic syndrome), low grade: Code(s): D46.20 - Refractory anemia with excess of blasts, unspecified Status: Acute Assessment and Plan: * Hem/Onc recommendations noted * IVIG x 2 since admission * follow platelet count (8) Generalized weakness: Code(s): R53.1 - Weakness Status: Acute Assessment and Plan: * due to acute illness and multiple hospitalizations * PT/OT as tolerated Will continue to follow Subjective Date/time seen: 06/20/19 15:36 Shortness of breath and edema seems to be doing better in general; appetite still suboptimal but family bringing in food from home which has been eating more of; no other acute issues or problems voiced at this time; no events overnight or earlier this AM. Exam Narrative: Exam Narrative: General: WD/WN female in NAD Heart: normal S1 and S2; no rub Lungs: coarse with decreased breath sounds at bases Abdomen: soft, nontender, nondistended, positive bowel sounds Extremities: no cyanosis or c
--- NOTE | 2019-06-20 15:36 | PM.PNNEP ---
Progress Note: A&P Assessment and Plan (1) Chronic kidney disease, stage 4 (severe): Code(s): N18.4 - Chronic kidney disease, stage 4 (severe) Status: Chronic Assessment and Plan: baseline creatinine runs ~ 2.5 - 3.0mg/dl in the last year or so due to hypertension and vascular disease creatinine lower than baseline recently - this may be a dilutional value secondary to previous fluid retention - her poor oral intake and loss of muscle mass may partly explain this as well her 24hr urine collection demonstrate a GFR/Crl of 12.8cc/min.... - this may partly explain her poor oral intake and fatigue - however, with her ongoing medical issues, this reading may not be completely accurate - AND, dialysis with her low platelet count, abdominal infection...etc may be challenging... continue supportive therapy (2) Diverticular disease of intestine with perforation and abscess: Code(s): K57.80 - Diverticulitis of intestine, part unspecified, with perforation and abscess without bleeding Status: Acute Assessment and Plan: Surgery and Infectious Disease following s/p percutaneous drain placement for abscess no need for antibiotics at this time eventually surgery for definitive treatment (3) Hypertension: Qualifiers: Hypertension type: essential hypertension Qualified Code(s): I10 - Essential (primary) hypertension Code(s): I10 - Essential (primary) hypertension Status: Chronic Assessment and Plan: reasonable control at this time follow hemodynamics (4) SOB (shortness of breath): Code(s): R06.02 - Shortness of breath Status: Acute Assessment and Plan: suspect due to fluid overload and possible anemia getting scheduled bumex (2mg po bid) wean oxygen as tolerated clinically seems better (5) Hyponatremia: Code(s): E87.1 - Hypo-osmolality and hyponatremia Status: Acute Assessment and Plan: mainly due to renal dysfunction and possibly fluid retention started on fluid restriction follow trend of sodium (6) Chronic anemia: Code(s): D64.9 - Anemia, unspecified Status: Acute Assessment and Plan: multifactorial etiology: - previous JINA - known CKD - acute illness/inflammation - blood loss? - MDS(?) on Epogen (gets as an outpatient as well) follow trend of H/H (7) MDS (myelodysplastic syndrome), low grade: Code(s): D46.20 - Refractory anemia with excess of blasts, unspecified Status: Acute Assessment and Plan: Hem/Onc recommendations noted IVIG x 2 since admission follow platelet count (8) Generalized weakness: Code(s): R53.1 - Weakness Status: Acute Assessment and Plan: due to acute illness and multiple hospitalizations PT/OT as tolerated Will continue to follow Subjective Date/time seen: 06/20/19 15:36 Shortness of breath and edema seems to be doing better in general; appetite still suboptimal but family bringing in food from home which has been eating more of; no other acute issues or problems voiced at this time; no events overnight or earlier this AM. Exam Narrative: Exam Narrative: General: WD/WN female in NAD Heart: normal S1 and S2; no rub Lungs: coarse with decreased breath sounds at bases Abdomen: soft, nontender, nondistended, positive bowel sounds Extremities: no cyanosis or clubbing; trace - 1+ edema Skin: no nodules Objective Data Vital Signs Vital Signs: Vital Signs Temp Pulse Resp BP Pulse Ox 06/20/19 15:34 109 H 18 06/20/19 14:00 36.0 C L 83 18 138/73 98 06/20/19 09:00 80 16 06/20/19 08:49 84 16 98 06/20/19 08:23 80 06/20/19 06:00 36.0 C L 82 21 H 147/84 H 100 06/20/19 02:39 77 16 06/20/19 02:29 79 16 06/19/19 22:00 36.4 C L 81 20 138/74 98 06/19/19 20:32 84 16 06/19/19 20
[2019-06-20] MEDS: BUMETANIDE 1 MG TABLET 2 MG PO (16:18)
[2019-06-20] MEDS: FLUTICASONE PROPIONATE 0.05% NA SPR 16 GM BTL (*BKC) 2 SPRAY NASAL (20:31)
[2019-06-21] VITALS (8 sets, daily range): BP systolic 148–152; BP diastolic 72–77; PULSE 81–93; RESP 18–20; TEMP 36.4–37.1; O2SAT 96–97
[2019-06-21] MEDS: ALBUTEROL SULFATE NEB 2.5 MG/0.5 ML INH INHALATION ×3 (01:49→15:36)
[2019-06-21 05:47] LABS: Blood Urea Nitrogen 37 mg/dL (7-17); Calcium 8.6 mg/dL (8.4-10.2); Carbon Dioxide 30 mmol/L (22-30); Chloride 99 mmol/L (98-107); Estimated CRCL calculation 17 ml/min; Estimated Glomerular Filt Rate 20; Glucose 85 mg/dL (65-105); Potassium 3.9 mmol/L (3.4-5.0); Sodium 133 mmol/L (137-145)
[2019-06-21 05:49] LABS: Basophils Percent Auto 0.2 % (0.2-1.2); Eosinophils Percent Auto 0.9 % (0-4.4); Hematocrit 23.9 % (37.0-47.0); Hemoglobin 7.5 g/dL (12.0-15.0); Immature Granulocyte Absolute 0.01 K/mm3 (0.00-0.031); Immature Granulocyte Percent A 0.2 % (0-0.5); Immature Platelet Fraction Pct 14.2 % (0.9-11.2); Lymphocytes Absolute Auto 1.17 K/mm3 (0.9-3.2); Lymphocytes Percent Auto 27.7 % (18.3-44.2); Mean Corpuscular HGB Conc 31.4 g/dl (32-36); Mean Corpuscular Hemoglobin 29.4 pg (26-34); Mean Corpuscular Volume 93.7 fl (80-100); Monocytes Absolute Auto 0.3 K/mm3 (0.1-0.6); Neutrophils Absolute Auto 2.7 K/mm3 (1.3-6.7); Platelet Count Result 34 k/mm3 (150-375); Red Blood Count 2.55 M/mm3 (4.2-5.4); Red Cell Distribution Width 17.9 % (11.5-14.5); White Blood Count 4.2 K/mm3 (4.5-10.0)
[2019-06-21] MEDS: GUAIFENESIN/DEXTROMETHORPHAN 10 ML UDC PO (08:37)
[2019-06-21] MEDS: CHOLECALCIFEROL 1,000 UNIT TABLET 1000 UNITS PO (08:38)
[2019-06-21] MEDS: MONTELUKAST SODIUM 10 MG TABLET PO (08:38)
[2019-06-21] MEDS: carvediloL 25 MG TABLET PO (08:38)
[2019-06-21] MEDS: levETIRAcetam 250 MG TABLET PO (08:38)
[2019-06-21] MEDS: VITAMIN B COMPLEX CAPSULE 1 CAP PO (08:38)
[2019-06-21] MEDS: BUMETANIDE 1 MG TABLET 2 MG PO (08:38)
[2019-06-21] MEDS: allopurinoL 100 MG TABLET PO (08:38)
[2019-06-21] MEDS: EPOETIN ALFA 10,000 UNITS/ML VIAL 10000 UNITS SUB-Q (08:44)
--- NOTE | 2019-06-21 13:54 | P.PNNP_ITS ---
Progress Note: A&P Assessment and Plan (1) Chronic kidney disease, stage 4 (severe): Code(s): N18.4 - Chronic kidney disease, stage 4 (severe) Status: Chronic Assessment and Plan: * baseline creatinine runs ~ 2.5 - 3.0mg/dl in the last year or so * due to hypertension and vascular disease * creatinine lower than baseline recently * her 24hr urine collection demonstrate a GFR/Crl of 12.8cc/min.... - this may partly explain her poor oral intake and fatigue - however, with her ongoing medical issues, this reading may not be completely accurate - AND, dialysis with her low platelet count, abdominal infection...etc may be challenging... * continue supportive therapy (2) Diverticular disease of intestine with perforation and abscess: Code(s): K57.80 - Diverticulitis of intestine, part unspecified, with perforation and abscess without bleeding Status: Acute Assessment and Plan: * Surgery and Infectious Disease following * s/p percutaneous drain placement for abscess * going to get stronger at outpt rehab and then ... * eventually surgery for definitive treatment (3) Hypertension: Qualifiers: Hypertension type: essential hypertension Qualified Code(s): I10 - Essential (primary) hypertension Code(s): I10 - Essential (primary) hypertension Status: Chronic Assessment and Plan: * systolic 120 to 140 * follow hemodynamics (4) SOB (shortness of breath): Code(s): R06.02 - Shortness of breath Status: Acute Assessment and Plan: * suspect due to fluid overload and possible anemia * getting scheduled bumex (2mg po bid) (5) Hyponatremia: Code(s): E87.1 - Hypo-osmolality and hyponatremia Status: Acute Assessment and Plan: * mainly due to renal dysfunction and possibly fluid retention * on fluid restriction * gradually better. (6) Chronic anemia: Code(s): D64.9 - Anemia, unspecified Status: Acute Assessment and Plan: * multifactorial etiology: - previous JINA - known CKD - acute illness/inflammation - blood loss? - MDS(?) * on Epogen (gets as an outpatient as well) * hb low but stable. (7) MDS (myelodysplastic syndrome), low grade: Code(s): D46.20 - Refractory anemia with excess of blasts, unspecified Status: Acute Assessment and Plan: * Hem/Onc recommendations noted * IVIG x 2 since admission * follow platelet count (8) Generalized weakness: Code(s): R53.1 - Weakness Status: Acute Assessment and Plan: * due to acute illness and multiple hospitalizations * PT/OT as tolerated Subjective Date/time seen: 06/21/19 13:54 Interval history: Patient is alert. eager for discharge to [facility] to get stronger. eating okay Exam Narrative: Exam Narrative: General: WD/WN female in NAD Heart: normal S1 and S2; no rub or gallop Lungs: coarse with decreased breath sounds at bases Abdomen: soft, nontender, nondistended, positive bowel sounds Extremities: no cyanosis or clubbing; trace - 1+ edema Skin: no nodules or rash Objective Data Vital Signs Vital Signs: Vital Signs - 24 hr 06/20/19 14:00 06/20/19 15:34 06/20/19 15:51 Temperature 36.0 C L Pulse Rate 83 109 H 106 H Respiratory Rate 18 18 18 Blood Pressure 138/73 Pulse Oximetr
--- NOTE | 2019-06-21 13:54 | PM.PNNEP ---
Progress Note: A&P Assessment and Plan (1) Chronic kidney disease, stage 4 (severe): Code(s): N18.4 - Chronic kidney disease, stage 4 (severe) Status: Chronic Assessment and Plan: baseline creatinine runs ~ 2.5 - 3.0mg/dl in the last year or so due to hypertension and vascular disease creatinine lower than baseline recently her 24hr urine collection demonstrate a GFR/Crl of 12.8cc/min.... - this may partly explain her poor oral intake and fatigue - however, with her ongoing medical issues, this reading may not be completely accurate - AND, dialysis with her low platelet count, abdominal infection...etc may be challenging... continue supportive therapy (2) Diverticular disease of intestine with perforation and abscess: Code(s): K57.80 - Diverticulitis of intestine, part unspecified, with perforation and abscess without bleeding Status: Acute Assessment and Plan: Surgery and Infectious Disease following s/p percutaneous drain placement for abscess going to get stronger at outpt rehab and then ... eventually surgery for definitive treatment (3) Hypertension: Qualifiers: Hypertension type: essential hypertension Qualified Code(s): I10 - Essential (primary) hypertension Code(s): I10 - Essential (primary) hypertension Status: Chronic Assessment and Plan: systolic 120 to 140 follow hemodynamics (4) SOB (shortness of breath): Code(s): R06.02 - Shortness of breath Status: Acute Assessment and Plan: suspect due to fluid overload and possible anemia getting scheduled bumex (2mg po bid) (5) Hyponatremia: Code(s): E87.1 - Hypo-osmolality and hyponatremia Status: Acute Assessment and Plan: mainly due to renal dysfunction and possibly fluid retention on fluid restriction gradually better. (6) Chronic anemia: Code(s): D64.9 - Anemia, unspecified Status: Acute Assessment and Plan: multifactorial etiology: - previous JINA - known CKD - acute illness/inflammation - blood loss? - MDS(?) on Epogen (gets as an outpatient as well) hb low but stable. (7) MDS (myelodysplastic syndrome), low grade: Code(s): D46.20 - Refractory anemia with excess of blasts, unspecified Status: Acute Assessment and Plan: Hem/Onc recommendations noted IVIG x 2 since admission follow platelet count (8) Generalized weakness: Code(s): R53.1 - Weakness Status: Acute Assessment and Plan: due to acute illness and multiple hospitalizations PT/OT as tolerated Subjective Date/time seen: 06/21/19 13:54 Interval history: Patient is alert. eager for discharge to [facility] to get stronger. eating okay Exam Narrative: Exam Narrative: General: WD/WN female in NAD Heart: normal S1 and S2; no rub or gallop Lungs: coarse with decreased breath sounds at bases Abdomen: soft, nontender, nondistended, positive bowel sounds Extremities: no cyanosis or clubbing; trace - 1+ edema Skin: no nodules or rash Objective Data Vital Signs Vital Signs: Vital Signs - 24 hr 06/20/19 14:00 06/20/19 15:34 06/20/19 15:51 Temperature 36.0 C L Pulse Rate 83 109 H 106 H Respiratory Rate 18 18 18 Blood Pressure 138/73 Pulse Oximetry 98 06/20/19 19:47 06/20/19 19:55 06/20/19 20:32 Temperature Pulse Rate 91 96 92 Respiratory Rate 18 18 Blood Pressure Pulse Oximetry 06/20/19 22:00 06/21/19 01:49 06/21/19 02:00 Temperature 36.3 C L Pulse Rate 98 81 84 Respiratory Rate 18 18 18 Blood Pressure 128/88 Pulse Oximetry 96 06/21/19 06:00 06/21/19 08:00 06/21/19 09:33 Temperature 37.1 C Pulse Rate 93 93 91 Respiratory Rate 18 18 20 Blood Pressure 148/77 H Pulse Oximetry 96 96 97 06/21/19 09:46 Temperature Pulse Rate 84 Respiratory Rate 20 Blood Pressure Pulse Oxime
--- NOTE | 2019-06-21 17:56 | P.DS_ITS ---
DS: Diagnosis Admitting Diagnosis Admitting Diagnosis: Diverticulitis of large intestine with perforation and absc ess with bleeding Discharge Diagnosis (1) Dyspnea: Qualifiers: Dyspnea type: shortness of breath Qualified Code(s): R06.02 - Shortness of breath Code(s): R06.00 - Dyspnea, unspecified Status: Acute Assessment and Plan: * Due to CHF, acute on chronic diastolic * Echo with moderate , NL LVEF, diastolic dysfuntion * Continue bumex bid and change to po and replace K as needed * Continue Bumex 2 mg b.i.d. discharge with a Coreg 25 b.i.d. (2) URI (upper respiratory infection): Qualifiers: URI type: unspecified URI Qualified Code(s): J06.9 - Acute upper respiratory infection, unspecified Code(s): J06.9 - Acute upper respiratory infection, unspecified Status: Acute Assessment and Plan: * Symptomatic treatment (3) Unresponsive episode: Code(s): R41.89 - Other symptoms and signs involving cognitive functions and awareness Status: Acute Assessment and Plan: * C/w seizure with postictal state. * Currently on Keppra 250mg q 12 h w/o recurrence. (4) Diverticular disease of intestine with perforation and abscess: Code(s): K57.80 - Diverticulitis of intestine, part unspecified, with perforation and abscess without bleeding Status: Acute Assessment and Plan: * Platelets 3/, IR inserted drain 06/08 * Draining serosanguinous fluid, minimal amount still * Discussed with surgery and plan is to leave drain for now * 06/[address] revealed R pelvic abscess smaller with L no real change * follow with repeat CT later date per surgery (5) Chronic anemia: Code(s): D64.9 - Anemia, unspecified Status: Acute Assessment and Plan: * Continue with Epogen MWF as ordered. * Known to have pancytopenia and had a bone marrow biopsy in 2014 that was unremarkable. * 06/12 platelets 13K, 16K; transfuse 2 U pheresed platelets * 06/13 platelets 23K * 06/14 platelets 8 K, 2 more units of pheresed platelets * 06/15 30K continue to monito r * 06/16 20K IV Ig per oncology * 06/17 hgb stable 7.4 and platelet essentially unchanged at 18K * 06/18 hgb still 7.4 and platelet 22K * 06/19 hgb 7.2 and platelet 27K * 06/20 hgb 7.5 and platelet 34K (6) Right knee pain: Qualifiers: Chronicity: acute Qualified Code(s): M25.561 - Pain in right knee Code(s): M25.561 - Pain in right knee Status: Acute Assessment and Plan: * Likely due to fall at facility * PT/OT * Monitor progress (7) Edema: Qualifiers: Edema type: unspecified Qualified Code(s): R60.9 - Edema, unspecified Code(s): R60.9 - Edema, unspecified Status: Acute Assessment and Plan: * resolved with diuretics and lamin wraps (8) Generalized weakness: Code(s): R53.1 - Weakness Status: Acute Assessment and Plan: * PT/OT (9) Chronic kidney disease, stage 4 (severe): Code(s): N18.4 - Chronic kidney disease, stage 4 (severe) Status: Chronic Assessment and Plan: * Continue to monitor * Avoid nephrotoxic drugs * Renal dose meds * 06/14, creatinine 1.9 which is actually better than at baseline * 06/20 2.4 generally runs 2.5-3 * (10) Hyponatremia: Code(s): E87.1 - Hypo-osmolality and hyponatremia Status: Acute Assessment and Plan: * Chronic and relatively stable * Urine Na 49 on 05/26/2019 * Fluid restriction * F/u lab, still 129 today 3
--- NOTE | 2019-06-21 17:56 | PM.DS ---
DS: Diagnosis Admitting Diagnosis Admitting Diagnosis: Diverticulitis of large intestine with perforation and abscess with bleeding Discharge Diagnosis (1) Dyspnea: Qualifiers: Dyspnea type: shortness of breath Qualified Code(s): R06.02 - Shortness of breath Code(s): R06.00 - Dyspnea, unspecified Status: Acute Assessment and Plan: Due to CHF, acute on chronic diastolic Echo with moderate , NL LVEF, diastolic dysfuntion Continue bumex bid and change to po and replace K as needed Continue Bumex 2 mg b.i.d. discharge with a Coreg 25 b.i.d. (2) URI (upper respiratory infection): Qualifiers: URI type: unspecified URI Qualified Code(s): J06.9 - Acute upper respiratory infection, unspecified Code(s): J06.9 - Acute upper respiratory infection, unspecified Status: Acute Assessment and Plan: Symptomatic treatment (3) Unresponsive episode: Code(s): R41.89 - Other symptoms and signs involving cognitive functions and awareness Status: Acute Assessment and Plan: C/w seizure with postictal state. Currently on Keppra 250mg q 12 h w/o recurrence. (4) Diverticular disease of intestine with perforation and abscess: Code(s): K57.80 - Diverticulitis of intestine, part unspecified, with perforation and abscess without bleeding Status: Acute Assessment and Plan: Platelets 3/4, IR inserted drain 3/ Draining serosanguinous fluid, minimal amount still Discussed with surgery and plan is to leave drain for now 06/[address] revealed R pelvic abscess smaller with L no real change follow with repeat CT later date per surgery (5) Chronic anemia: Code(s): D64.9 - Anemia, unspecified Status: Acute Assessment and Plan: Continue with Epogen MWF as ordered. Known to have pancytopenia and had a bone marrow biopsy in 2014 that was unremarkable. 06/12 platelets 13K, 16K; transfuse 2 U pheresed platelets 06/13 platelets 23K 06/14 platelets 8 K, 2 more units of pheresed platelets 06/15 30K continue to monito r 06/16 20K IV Ig per oncology 06/17 hgb stable 7.4 and platelet essentially unchanged at 18K 06/18 hgb still 7.4 and platelet 22K 3/15 hgb 7.2 and platelet 27K 06/20 hgb 7.5 and platelet 34K (6) Right knee pain: Qualifiers: Chronicity: acute Qualified Code(s): M25.561 - Pain in right knee Code(s): M25.561 - Pain in right knee Status: Acute Assessment and Plan: Likely due to fall at facility PT/OT Monitor progress (7) Edema: Qualifiers: Edema type: unspecified Qualified Code(s): R60.9 - Edema, unspecified Code(s): R60.9 - Edema, unspecified Status: Acute Assessment and Plan: resolved with diuretics and lamin wraps (8) Generalized weakness: Code(s): R53.1 - Weakness Status: Acute Assessment and Plan: PT/OT (9) Chronic kidney disease, stage 4 (severe): Code(s): N18.4 - Chronic kidney disease, stage 4 (severe) Status: Chronic Assessment and Plan: Continue to monitor Avoid nephrotoxic drugs Renal dose meds 06/14, creatinine 1.9 which is actually better than at baseline 06/20 2.4 generally runs 2.5-3 (10) Hyponatremia: Code(s): E87.1 - Hypo-osmolality and hyponatremia Status: Acute Assessment and Plan: Chronic and relatively stable Urine Na 49 on 05/26/2019 Fluid restriction F/u lab, still 129 today 06/14 06/20 133 (11) Hypertension: Qualifiers: Hypertension type: essential hypertension Qualified Code(s): I10 - Essential (primary) hypertension Code(s): I10 - Essential (primary) hypertension Status: Chronic Assessment and Plan: Held clonidine and hydralazine but restarted Coreg 06/14 and increase to 25 mg b.i.d. which will be her discharge dose DS: Summary Hospital Course Hospital Course: 78-year-old white female with
--- NOTE | 2019-06-21 18:27 | PM.PNGS ---
Progress Note: A&P Assessment and Plan (1) Diverticular disease of intestine with perforation and abscess: Code(s): K57.80 - Diverticulitis of intestine, part unspecified, with perforation and abscess without bleeding Status: Acute Assessment and Plan: CT-guided percutaneous drain in place and still putting out occasional scant purulence fluid. Would recommend continuing to monitor drain output until it is completely dry and serous for at least several days. No further antibiotics necessary at this time unless she begins having fevers, worsening abdominal pains, or other recurrent symptoms. Okay from a surgical standpoint to discharge the patient when medically stable from other services. Follow-up with Dr. Lerner in 1 week. Continue perc. drain on discharge and record output. Keep dressing clean/dry/intact. (2) MDS (myelodysplastic syndrome), low grade: Code(s): D46.20 - Refractory anemia with excess of blasts, unspecified Status: Acute Assessment and Plan: Patient being treated by Dr. Pham. Received IVIG and continuing to follow platelet levels. Platelets 34,000 today. Additional Plan Pancreatic lesion noted on CT. Plan for further work-up once more stable. Discussed plan of care with Dr. Shaffer. Subjective Subjective Date/Time Seen: 06/21/19 13:50 Patient reports: no new complaints, feels better and flatus Interval history: Patient reports feeling stronger and better today. Still only eating about 50% or less of her trays for meals. Reports flatus today but no BM yet today. Denies abdominal pain, nausea, vomiting, or bloating. No other complaints at this time. Review of Systems Review of Systems: All systems reviewed & are unremarkable except as noted in HPI and below Exam Const: General: no acute distress Orientation/consciousness: patient oriented x3 GI: Inspection: other (mild distention, unchanged) GI Palp: No abdominal tenderness, Yes Soft to palpation, No Guarding due to palpation present (GI) and No Rebound tenderness present Auscultation: normal bowel sounds Other: Pigtail drain in RLQ with scant purulence drainage Neuro: General: moves all extremities and no focal motor deficits Psych: Appearance: grossly normal Mental Status: mental status grossly normal Affect: normal affect Attitude: cooperative Thought process: Normal thought process present Objective Data Vital Signs Vital Signs: Vital Signs - 24 hr 06/20/19 19:47 06/20/19 19:55 06/20/19 20:32 Temperature Pulse Rate 91 96 92 Respiratory Rate 18 18 Blood Pressure Pulse Oximetry 06/20/19 22:00 06/21/19 01:49 06/21/19 02:00 Temperature 36.3 C L Pulse Rate 98 81 84 Respiratory Rate 18 18 18 Blood Pressure 128/88 Pulse Oximetry 96 06/21/19 06:00 06/21/19 08:00 06/21/19 09:33 Temperature 37.1 C Pulse Rate 93 93 91 Respiratory Rate 18 18 20 Blood Pressure 148/77 H Pulse Oximetry 96 96 97 06/21/19 09:46 06/21/19 14:00 06/21/19 15:37 Temperature 36.4 C L Pulse Rate 84 93 89 Respiratory Rate 20 18 20 Blood Pressure 152/72 H Pulse Oximetry 97 Intake/Output Intake/Output: Intake & Output 06/18/19 06/19/19 06/20/19 06/21/19 23:59 23:59 23:59 23:59 Intake Total 990 720 720 240 Output Total 959 525 710 150 Balance 31 195 10 90 Meds/Results Radiology Results: ITS Impressions Catheter Placement CT 06/09/19 17:05 IMPRESSION: 1[address] Successful CT-guided right percent perisigmoid abscess drainage. 2. 4 mL mckinnon, opaque fluid was sent for aerobic and anaerobic cultures. Venous Doppler Study 06/12/19 14:29 IMPRESSION: 1: No lower extremity deep venous thrombosis. Pulmonary Perfusion Imaging 06/12/19 15:09 IMPRESSION: Intermediate probability pulmonary embolism. Chest X-Ray 06/15/19 12:03 Impression: 1: Bibasilar airspace disease which may represent edema, atelectasis and/or pneumonia. 2: Bilateral pleural effusi
== END 2019-06-21 17:50 | DRG 391 ==
PROVIDERS: Internal Medicine; Internal Medicine Medical Oncology; Internal Medicine Nephrology; Nurse Practitioner; Radiology Diagnostic Radiology; Admitting Provider Internal Medicine; PCP Internal Medicine; Visit Provider Internal Medicine
PROC: 0D9N30Z Drainage of Sigmoid Colon with Drainage Device, Percutaneous Approach (ICD-10-PCS; principal; 2019-06-09 16:00)
DX: K57.20 Diverticulitis of large intestine with perforation and abscess without bleeding (principal); I50.33 Acute on chronic diastolic (congestive) heart failure; D61.818 Other pancytopenia; I13.0 Hypertensive heart and chronic kidney disease with heart failure and stage 1 through stage 4 chronic kidney disease, or unspecified chronic kidney disease; N18.4 Chronic kidney disease, stage 4 (severe); E87.1 Hypo-osmolality and hyponatremia; E46 Unspecified protein-calorie malnutrition; Z87.11 Personal history of peptic ulcer disease; D63.1 Anemia in chronic kidney disease; E78.5 Hyperlipidemia, unspecified; M25.561 Pain in right knee; W19.XXXA Unspecified fall, initial encounter; G40.909 Epilepsy, unspecified, not intractable, without status epilepticus; Z68.28 Body mass index [BMI] 28.0-28.9, adult; J06.9 Acute upper respiratory infection, unspecified; D46.20 Refractory anemia with excess of blasts, unspecified; Z85.3 Personal history of malignant neoplasm of breast; Z92.3 Personal history of irradiation; M10.9 Gout, unspecified; R41.89 Other symptoms and signs involving cognitive functions and awareness; Z85.828 Personal history of other malignant neoplasm of skin; Z96.641 Presence of right artificial hip joint; J30.2 Other seasonal allergic rhinitis; K80.20 Calculus of gallbladder without cholecystitis without obstruction
CPT/HCPCS: 36415; 36430; 71046; 74176; 75989; 78582; 80048; 80053; 80069; 81001; 81050; 82570; 82575; 83615; 83735; 84439; 84443; 84480; 85025; 85027; 85046; 85049; 85055; 85384; 85610; 85730; 86140; 86900; 86901; 87040; 87070; 87075; 87205; 93306; 93970; 94640; 95816; 97110; 97116; 97161; 97165; 97530; 97535; P9036; A9270; A9540; A9558; C1769; J1459; J1940; J2250; J3010; J7050; P9034; Q4081; Q9967

== ENCOUNTER 2019-07-03 20:25 | Inpatient (IN) | payer MEDICARE, SELFPAY ==
--- NOTE | ~2019-07-03 | XR_ITS ---
EXAMINATION: XR chest 1V portable DATE: 07/04/2019 13:46 INDICATION: Cough and shortness of breath TECHNIQUE: frontal view of the chest was obtained. COMPARISON: Chest radiograph dated 06/15/[address] dated 06/17/2019 FINDINGS: Significant improvement in aeration at the bilateral lung bases with resolution of prior pleural effu sions. Persistent patchy consolidation at the right lower lung zone which includes an oblique opacity corresponding to the at least partially collapsed right middle lobe on the prior CT. There is volume loss in the right lower lung zone with depression of the minor fissure. No pneumothorax. Mild streak y atelectasis at the left lung base. Cardiomegaly. Visualized bones and soft tissues are unremarkable . IMPRESSION: 1. Persistent consolidation at the right lower lung zone to at least in part to residual atelectasis although superimposed pneumonia not excludable. Reviewed, dictated and finalized at location A.
[2019-07-03 20:21] VITALS: BP 115/68; PULSE 94; RESP 18; TEMP 37.2; O2SAT 100
--- NOTE | 2019-07-03 20:33 | ED.RECABL ---
HPI - Recheck/Abnormal Lab/Rx General Chief Complaint: Recheck/Abnormal Lab/Rx Stated Complaint: abnormal labs Time Seen by Provider: 07/03/19 20:29 Source: patient and RN notes reviewed Mode of arrival: EMS Limitations: no limitations History of Present Illness HPI narrative: A 79 y/o female, with a hx of stage 4 CKD, presents to the ED via EMS from [facility] d/t abnormal labs. She states that she is unsure of when the labs were taking but that she was awoken this evening and told that her creatinine was high and that her kidneys are shutting down , so she needed to come to the ED. Per nurses note the pt also had elevated BUN and K. The nurses note also reports that the pt is scheduled to have surgery done on her 2 sigmoid abscesses. The pt denies any decrease intake, dysuria, urinary retention, SOB, CP, N/V/D, ABD pain, or any medical complaints at this time MD complaint: abnormal lab Returns today for: called because of abnormal lab/test Symptoms since prior visit: no new symptoms Context: called for abnormal lab result Associated symptoms: none Related Data Home Medications Medication Instructions Recorded Confirmed allopurinol 100 mg PO BID 05/13/19 07/01/19 betamethasone, augmented 1 applic TOPICAL PRN 05/13/19 07/01/19 cholecalciferol (vitamin D3) 1,000 unit PO DAILY 05/13/19 07/01/19 [Vitamin D3] montelukast 10 mg PO DAILY 05/13/19 07/01/19 simvastatin 10 mg PO EVERY OTHER DAY 05/13/19 07/01/19 vitamin B complex [B 1 tablet PO DAILY 05/13/19 07/01/19 Complex-Vitamin B12] epoetin tone [Procrit] 10,000 unit IV 3XW 07/03/19 oseltamivir mg 07/03/19 Allergies Allergy/AdvReac Type Severity Reaction Status Date / Time ciprofloxacin Allergy Severe Anaphylactic Verified 07/03/19 21:32 Shock cephalexin Allergy Intermediate TINNITIS Verified 07/03/19 21:32 Penicillins Allergy Intermediate HIVES Verified 07/03/19 21:32 Quinolones Allergy Intermediate HIVES Verified 07/03/19 21:32 Review of Systems Review of Systems: All systems reviewed & are unremarkable except as noted in HPI and below Constitutional: Constitutional: Denies poor appetite Cardiovascular: Cardiovascular: Denies chest pain Respiratory: Respiratory: Denies dyspnea Gastrointestinal: Gastrointestinal: Denies abdominal pain, Denies diarrhea, Denies nausea and Denies vomiting Genitourinary: Genitourinary: Denies dysuria and Denies other (urinary retention) [facility] Past Medical History Medical History Acute on chronic blood loss anemia Breast cancer Carcinoma in situ, 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 Chronic anemia She is a patient of Dr. Telles at [place]. A bone marrow biopsy done about 5 years ago was reportedly unremarkable. Most likely related to chronic renal failure. On Epogen Friday Chronic kidney disease, stage 4 (severe) Baseline creatinine around 3.0. Diverticulitis of colon with perforation Summer 2018, hospitalized at [place]. Again in May of 2019 with intra-abdominal abscesses, currently 3 hospitalizations for this. Diverticulosis of colon with hemorrhage Diverticular disease with bleeding and anemia. Gastric ulcer Found May of 2019. Gout Hyperlipidemia Hypertension Nausea & vomiting Pancytopenia Seasonal allergies Seizure Patient was getting up out of a chair at [place] and rolled her eyes back and slid to the floor patient stated her legs gave out. No official diagnosis of seizure however she was started on seizure medicine SOB (shortness of breath) Surgical History Surgical History Basal cell carcinoma (BCC) 2 spots-cheek and forehead, removed 07/01/2011 Dental root implant present lower. 2001 H/O breast biopsy Small tumor-06/29/2013 H/O colonoscopy 10/09/2018, 05/2019 History of dilatation and curettage History of removal of cyst left
[2019-07-03 20:38] LABS: Basophils Percent Auto 0.4 % (0.2-1.2); Eosinophils Percent Auto 0.9 % (0-4.4); Hematocrit 25.7 % (37.0-47.0); Hemoglobin 7.8 g/dL (12.0-15.0); Immature Granulocyte Absolute 0.02 K/mm3 (0.00-0.031); Immature Granulocyte Percent A 0.4 % (0-0.5); Lymphocytes Absolute Auto 0.92 K/mm3 (0.9-3.2); Lymphocytes Percent Auto 19.9 % (18.3-44.2); Mean Corpuscular HGB Conc 30.4 g/dl (32-36); Mean Corpuscular Hemoglobin 30.4 pg (26-34); Mean Platelet Volume 12.9 fl (7.4-10.4); Monocytes Absolute Auto 0.4 K/mm3 (0.1-0.6); Monocytes Percent Auto 8.4 % (2.6-8.5); Neutrophils Absolute Auto 3.2 K/mm3 (1.3-6.7); Platelet Count Result 89 k/mm3 (150-375); Red Blood Count 2.57 M/mm3 (4.2-5.4); Red Cell Distribution Width 20.4 % (11.5-14.5); White Blood Count 4.6 K/mm3 (4.5-10.0)
[2019-07-03 20:52] LABS: Alanine Aminotransferase 6 U/L (4-35); Albumin Level 2.5 g/dL (3.5-5.1); Alkaline Phosphatase 121 U/L (38-126); Aspartate Amino Transferase 14 U/L (14-36); Bilirubin,Total 0.3 mg/dL (0.2-1.3); Blood Urea Nitrogen 61 mg/dL (7-17); Calcium 8.2 mg/dL (8.4-10.2); Carbon Dioxide 27 mmol/L (22-30); Chloride 94 mmol/L (98-107); Estimated CRCL calculation 9 ml/min; Estimated Glomerular Filt Rate 9; Glucose 113 mg/dL (65-105); Sodium 130 mmol/L (137-145)
[2019-07-03] MEDS: SODIUM CHLORIDE 0.9% IV 1,000 ML 999 ML IV CONT (21:19)
[2019-07-03 21:30] VITALS: BP 103/66; PULSE 95; RESP 22; O2SAT 98
--- NOTE | 2019-07-03 21:48 | PM.IMHP ---
H&P: HPI History of Present Illness Chief complaint: Acute on chronic renal failure Narrative: This is a 79 year old female with known CDK stage IV, Myelodysplastic syndrome, and recurrent diverticulitis with colonic abscesses which required a surgical drain be placed. The patient is currently at [facility] for rehab and just saw Dr. Lerner two days ago and has been planning to have elective partial colectomy secondary to her recurrent colonic diverticulitis. She is currently waiting to get her strength back and for her platelets to improve. Today the patient was sent to the hospital for evaluation as she was found to have worsening renal function on her routine lab work. The patient has been on Bumex since her discharge. She has been eating and drinking more over the past few days and feels like her rehab has been helping quite a bit. Tonight she denies any symptoms. She denies any chest pain, shortness of breath, cough, fever, nausea, vomiting, chills, headache, abdominal pain, rashes, bruising, sore throat, dysuria, hematuria, diarrhea, rectal bleeding, worsening LE swelling, redness, pain, or focal neurological symptoms. Her Cr was found to be 4.60 today which is up from her usual baseline of 2.0-2.4. No other complaints. Review of Systems Review of Systems: All systems reviewed & are unremarkable except as noted in HPI and below PMFSH Past Medical History Medical History Acute on chronic blood loss anemia Breast cancer Carcinoma in situ, 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 Chronic anemia She is a patient of Dr. Telles at [place]. A bone marrow biopsy done about 5 years ago was reportedly unremarkable. Most likely related to chronic renal failure. On Epogen Friday Chronic kidney disease, stage 4 (severe) Baseline creatinine around 3.0. Diverticulitis of colon with perforation Summer 2018, hospitalized at [place]. Again in May of 2019 with intra-abdominal abscesses, currently 3 hospitalizations for this. Diverticulosis of colon with hemorrhage Diverticular disease with bleeding and anemia. Gastric ulcer Found May of 2019. Gout Hyperlipidemia Hypertension Nausea & vomiting Pancytopenia Seasonal allergies Seizure Patient was getting up out of a chair at [place] and rolled her eyes back and slid to the floor patient stated her legs gave out. No official diagnosis of seizure however she was started on seizure medicine SOB (shortness of breath) Surgical History Surgical History Basal cell carcinoma (BCC) 2 spots-cheek and forehead, removed 07/01/2011 Dental root implant present lower. 2001 H/O breast biopsy Small tumor-06/29/2013 H/O colonoscopy 10/09/2018, 05/2019 History of dilatation and curettage History of removal of cyst left middle finger. 2004 or 2005 History of skin graft to re-form lower gum line. 1973 History of tonsillectomy and adenoidectomy Status post hip surgery Left hip screw. Status post right breast lumpectomy x2 in 2013 Status post right hip replacement Family History Family History Father End-stage renal disease needing dialysis Alzheimer's dementia Acute myocardial infarction Hypertension Prostate carcinoma Mother , 1987 Breast cancer Grandparent Diabetes mellitus Grandparent Diabetes mellitus Social History Social History Social History: Prior to her initial hospitalization in May, the patient lived alone at her home in [place]. She was recently transferred to [facility] and presented from there on this admission. She is . She has two daughters. She is a lifelong nonsmoker and denies drug abuse. Smoking status: Never smoker Se
[2019-07-03] MEDS: LACTATED RINGERS 1,000 ML 125 ML IV CONT (22:15)
--- NOTE | 2019-07-03 22:31 | ADMGEN ---
This patient, Grecia Patterson, was admitted to Medical Room 347-. Patient/family oriented to hospital policies and general routines including ID bracelet, bed and alarms, visiting hours, pain management, procedures, bathroom and other care routines, personal items, smoking policy, room service/diet, and visiting hours. Valuables list has been completed. Information on how to activate the Rapid Response Team has been discussed. Patient/Family are encouraged to report perceived risks to care and to ask questions if they do not understand what they are told or what they should do.
[2019-07-03 22:39] VITALS: BP 126/72; PULSE 102; RESP 20; TEMP 36.5; O2SAT 100
[2019-07-03 22:40] VITALS: BMI 24.3
[2019-07-04 05:05] VITALS: BP 132/82; PULSE 94; RESP 16; TEMP 36.7; O2SAT 98
[2019-07-04] MEDS: LACTATED RINGERS 1,000 ML 125 ML IV CONT (05:18)
[2019-07-04 06:42] LABS: Basophils Percent Auto 0.2 % (0.2-1.2); Eosinophils Absolute Auto 0.1 K/mm3 (0-0.3); Eosinophils Percent Auto 2.3 % (0-4.4); Hematocrit 22.3 % (37.0-47.0); Hemoglobin 7.1 g/dL (12.0-15.0); Immature Granulocyte Absolute 0.02 K/mm3 (0.00-0.031); Immature Granulocyte Percent A 0.5 % (0-0.5); Lymphocytes Absolute Auto 1.14 K/mm3 (0.9-3.2); Lymphocytes Percent Auto 26.5 % (18.3-44.2); Mean Corpuscular HGB Conc 31.8 g/dl (32-36); Mean Corpuscular Hemoglobin 30.7 pg (26-34); Mean Corpuscular Volume 96.5 fl (80-100); Mean Platelet Volume 12.5 fl (7.4-10.4); Monocytes Absolute Auto 0.4 K/mm3 (0.1-0.6); Monocytes Percent Auto 8.4 % (2.6-8.5); Neutrophils Absolute Auto 2.7 K/mm3 (1.3-6.7); Neutrophils Percent Auto 62.1 % (45.5-73.1); Platelet Count Result 74 k/mm3 (150-375); Red Blood Count 2.31 M/mm3 (4.2-5.4); Red Cell Distribution Width 19.9 % (11.5-14.5); White Blood Count 4.3 K/mm3 (4.5-10.0)
[2019-07-04 06:48] LABS: Blood Urea Nitrogen 57 mg/dL (7-17); Calcium 7.8 mg/dL (8.4-10.2); Carbon Dioxide 26 mmol/L (22-30); Chloride 97 mmol/L (98-107); Estimated CRCL calculation 8 ml/min; Estimated Glomerular Filt Rate 11; Glucose 89 mg/dL (65-105); Potassium 3.1 mmol/L (3.4-5.0); Sodium 130 mmol/L (137-145)
[2019-07-04] MEDS: SACCHAROMYCES BOULARDII 250 MG CAPSULE PO ×2 (08:42→17:44)
[2019-07-04] MEDS: POTASSIUM CHLORIDE 20 MEQ PACKET (FOR LIQUID) 40 MEQ PO (08:42)
[2019-07-04] MEDS: allopurinoL 100 MG TABLET PO ×2 (08:42→17:45)
[2019-07-04 08:43] VITALS: PULSE 92
[2019-07-04] MEDS: OSELTAMIVIR PHOSPHATE 75 MG CAPSULE PO (08:43)
[2019-07-04] MEDS: carvediloL 25 MG TABLET PO ×2 (08:43→17:45)
[2019-07-04] MEDS: PANTOPRAZOLE 40 MG TABLET PO ×2 (08:45→20:56)
[2019-07-04] MEDS: VITAMIN B COMPLEX CAPSULE 1 CAP PO (08:45)
[2019-07-04] MEDS: CHOLECALCIFEROL 1,000 UNIT TABLET 1000 UNITS PO (08:45)
[2019-07-04] MEDS: MONTELUKAST SODIUM 10 MG TABLET PO (08:45)
[2019-07-04] MEDS: DOXYCYCLINE HYCLATE 100 MG TABLET PO ×2 (08:46→20:56)
--- NOTE | 2019-07-04 09:41 | PM.CNNEP ---
Assessment and Plan Assessment and plan (1) JINA (acute kidney injury): Code(s): N17.9 - Acute kidney failure, unspecified Status: Acute (2) Chronic kidney disease, stage 4 (severe): Code(s): N18.4 - Chronic kidney disease, stage 4 (severe) Status: Chronic (3) Chronic anemia: Code(s): D64.9 - Anemia, unspecified Status: Chronic (4) MDS (myelodysplastic syndrome), low grade: Code(s): D46.20 - Refractory anemia with excess of blasts, unspecified Status: Chronic (5) Hypokalemia: Code(s): E87.6 - Hypokalemia Status: Acute (6) Hypertension: Qualifiers: Hypertension type: essential hypertension Qualified Code(s): I10 - Essential (primary) hypertension Code(s): I10 - Essential (primary) hypertension Status: Chronic Assessment and Plan: . Additional Plan Grecia appears to have an acute insult on top of her baseline kidney disease. Although she has lower extremity swelling, this is somewhat of a chronic issue/problem. Furthermore, her overall volume status appears to be doing somewhat better as her chest x-ray is clear and she has minimal swelling in the other parts of her body. Hence I suspect that her elevated creatinine may be a component of over-diuresis since she was on diuretic therapy since her discharge from [facility] recently. I suspect she is probably intravascularly dry despite the outward signs of edema /fluid retention which is predominantly in her lower extremities. Hence, at this point time, I agree with holding diuretic therapy and giving the patient gentle IV fluid hydration in effort to hopefully get her kidney function back to baseline. For further evaluation in the rise in her creatinine, I will check urine electrolytes and urine eosinophils along with following the trend of her repeat labs and urine output with the aforementioned gentle IV fluid hydration. If her kidney function fails to improve, the mac step would be to recheck a renal ultrasound just to ensure that we are not missing any other anatomical abnormality that we are on aware of. I would replete her potassium as needed and resume her Epogen therapy for her chronic anemia And follow the trend of her hemoglobin/hematocrit. Clinically, the patient states that she feels quite well probably because she is eating and drinking better in general and is probably more active than she was on her last hospitalization here at [facility]. I will continue follow patient with you while she remains hospitalized to make further recommendations during hospital course. Thank you for allowing me to participate in the care of this patient. History of Present Illness Reason for Consult Consult date: 07/04/19 Reason for consult: acute renal failure (on chronic kidney disease) Chief Complaint Chief complaint: Acute on chronic renal failure History of Present Illness Narrative: The patient is a 79 year old female with an extensive past medical history as outlined below who was transferred from [facility] ER for worsening kidney function. The patient has been in an out [facility] over last few months secondary to her recurrent diverticulitis with her most recent hospitalization complicated by a colonic abscess that required placement of a surgical drain. Following that hospital stay, she was transferred to [facility] for rehab as well as optimization of her overall clinical status in preparation for a partial colectomy for definitive treatment of this problem. She has had issues with deconditioning, thrombocytopenia, anemia...etc during her last hospital stay and hence the reason for not pursuing surgery at that time. In general, since she has been at [facility], she states that she has been eating and drinking reasonably well and feels like the rehab has been successful in billing Upper strength. She had routine
--- NOTE | 2019-07-04 11:51 | PM.IMPN ---
Progress Note: A&P Assessment and Plan (1) Acute on chronic renal failure: Qualifiers: Acute renal failure type: unspecified Chronic kidney disease stage: unspecified stage Qualified Code(s): N17.9 - Acute kidney failure, unspecified; N18.9 - Chronic kidney disease, unspecified Code(s): N17.9 - Acute kidney failure, unspecified; N18.9 - Chronic kidney disease, unspecified Status: Acute Assessment and Plan: May be secondary to recent bumex use vs. intravascular dehydration. Cr improved to 4.10 this morning Continue Light IV hydration at 75 mL/hr for now BMP this afternoon to reassess renal function/potassium Monitor urine output and renal function closely. Hold nephrotoxic agents and renally dose medications. Nephrology has been consulted by ER provider; appreciate recommendations (2) MDS (myelodysplastic syndrome), low grade: Code(s): D46.20 - Refractory anemia with excess of blasts, unspecified Status: Chronic Assessment and Plan: Platelets have improved since last hospitalization. 74k this morning. Continue to monitor blood counts. Encourage nutrition. Continue procrit injections. Continue heme-onc recommendations. (3) Diverticular disease of intestine with perforation and abscess: Code(s): K57.80 - Diverticulitis of intestine, part unspecified, with perforation and abscess without bleeding Status: Chronic Assessment and Plan: The patient is planning to have an elective partial colectomy in the near future. Continue general surgery recommendations. Monitor (4) Generalized weakness: Code(s): R53.1 - Weakness Status: Chronic Assessment and Plan: Continue physical therapy. Encourage PO nutrition. (5) Chronic anemia: Code(s): D64.9 - Anemia, unspecified Status: Chronic Assessment and Plan: Likely secondary to myelodysplastic syndrome. Hgb 7.1 this morning Continue heme-onc recommendations. Monitor blood counts Transfuse prn. (6) Hypokalemia: Code(s): E87.6 - Hypokalemia Status: Acute Assessment and Plan: K 3.1 this morning. Potassium replaced PO, however patient vomited shortly afterwords Assess K level this afternoon with BMP Replace as need; patient stated she does okay with tablets Continue to trend Subjective Date/time seen: 07/04/19 11:51 Interval history: Patient is a 79 yo F with history of known CDK stage IV, Myelodysplastic syndrome, and recurrent diverticulitis with colonic abscesses which required a surgical drain be placed, and has had multiple recent hospital visits in the past 2 months who is here for evaluation for acute on chronic renal failure found on outpatient labs. Patient states she is doing okay today. She had an episode of N/V after drinking potassium supplement today, but this has resolved. Some abdominal discomfort associated with n/v but also has since resolved. No other complaints at the moment and in fact, patient tells me I feel fine . Denies f/c/s, myalgias/arthralgias, cp/palpitations, sob/cough, current n/v/d/c, abd pain, changes in BMs, dysuria, hematuria, cloudy urine, calf pain/swelling. Review of Systems Review of Systems: All systems reviewed & are unremarkable except as noted in HPI and below Exam Narrative: Exam Narrative: Patient sitting upright in chair at time of visit; covered in multiple blankets to keep warm Const: General: cooperative, comfortable, no acute distress, alert, awake and ill appearing chronically Nutritional Appearance: thin and underweight Orientation/consciousness: patient oriented x3 HENMT: Head: normocephalic General nose exam: Normal external nose present Face and sinus: fa
[2019-07-04] MEDS: EUCERIN CREAM 120 GM JAR 1 APPLIC TOPICAL (12:36)
[2019-07-04 14:00] VITALS: BP 130/64; PULSE 84; RESP 16; TEMP 36.2; O2SAT 98
[2019-07-04 14:11] LABS: Blood Urea Nitrogen 51 mg/dL (7-17); Calcium 7.9 mg/dL (8.4-10.2); Carbon Dioxide 26 mmol/L (22-30); Chloride 96 mmol/L (98-107); Estimated CRCL calculation 8 ml/min; Estimated Glomerular Filt Rate 10; Glucose 106 mg/dL (65-105); Magnesium 0.7 mg/dL (1.6-2.3); Potassium 3.1 mmol/L (3.4-5.0); Sodium 132 mmol/L (137-145)
[2019-07-04] MEDS: LACTATED RINGERS 1,000 ML 75 ML IV CONT (15:56)
[2019-07-04 17:45] VITALS: PULSE 94
[2019-07-04] MEDS: FLUTICASONE PROPIONATE 0.05% NA SPR 16 GM BTL (*BKC) 2 SPRAY NASAL (20:57)
[2019-07-04 22:00] VITALS: BP 111/56; PULSE 91; RESP 16; TEMP 36.7; O2SAT 98
[2019-07-04 22:43] LABS: Creatinine Urine 76.6 mg/dL; Total Protein Urine Random 30 mg/dL
[2019-07-04 22:56] LABS: Sodium Urine Random 65 meq/L
[2019-07-05] VITALS (10 sets, daily range): BP systolic 101–129; BP diastolic 50–82; PULSE 72–94; RESP 12–18; TEMP 36.2–37.1; O2SAT 97–100
[2019-07-05] MEDS: LACTATED RINGERS 1,000 ML 75 ML IV CONT ×2 (05:25→22:52)
[2019-07-05 05:53] LABS: Basophils Percent Auto 0.3 % (0.2-1.2); Eosinophils Absolute Auto 0.1 K/mm3 (0-0.3); Eosinophils Percent Auto 3.3 % (0-4.4); Immature Granulocyte Absolute 0.01 K/mm3 (0.00-0.031); Immature Granulocyte Percent A 0.3 % (0-0.5); Immature Platelet Fraction Pct 3.3 % (0.9-11.2); Lymphocytes Absolute Auto 1.22 K/mm3 (0.9-3.2); Lymphocytes Percent Auto 33.4 % (18.3-44.2); Mean Corpuscular HGB Conc 31.4 g/dl (32-36); Mean Corpuscular Hemoglobin 31.3 pg (26-34); Mean Corpuscular Volume 99.5 fl (80-100); Mean Platelet Volume 11.5 fl (7.4-10.4); Monocytes Absolute Auto 0.3 K/mm3 (0.1-0.6); Monocytes Percent Auto 7.4 % (2.6-8.5); Neutrophils Percent Auto 55.3 % (45.5-73.1); Nucleated Red Blood Cells Perc 0.5 % (0.0-0.2); Platelet Count Result 61 k/mm3 (150-375); Red Blood Count 2.11 M/mm3 (4.2-5.4); Red Cell Distribution Width 20.1 % (11.5-14.5); White Blood Count 3.7 K/mm3 (4.5-10.0)
[2019-07-05 05:57] LABS: Hemoglobin 6.6 g/dL (12.0-15.0)
[2019-07-05 05:59] LABS: Blood Urea Nitrogen 48 mg/dL (7-17); Calcium 7.7 mg/dL (8.4-10.2); Carbon Dioxide 27 mmol/L (22-30); Chloride 100 mmol/L (98-107); Estimated CRCL calculation 9 ml/min; Estimated Glomerular Filt Rate 12; Glucose 86 mg/dL (65-105); Magnesium 0.7 mg/dL (1.6-2.3); Potassium 2.9 mmol/L (3.4-5.0); Sodium 132 mmol/L (137-145)
[2019-07-05] MEDS: MAGNESIUM SULF 2 GM/WATER 50ML 2 GM/50 ML BAG IVPB (09:19)
[2019-07-05] MEDS: POTASSIUM CHLORIDE 20 MEQ TABLET 40 MEQ PO ×2 (09:19→18:17)
[2019-07-05] MEDS: allopurinoL 100 MG TABLET PO ×2 (09:20→18:19)
[2019-07-05] MEDS: CHOLECALCIFEROL 1,000 UNIT TABLET 1000 UNITS PO (09:20)
[2019-07-05] MEDS: carvediloL 25 MG TABLET PO ×2 (09:21→18:18)
[2019-07-05] MEDS: VITAMIN B COMPLEX CAPSULE 1 CAP PO (09:25)
[2019-07-05] MEDS: DOXYCYCLINE HYCLATE 100 MG TABLET PO ×2 (09:26→20:15)
[2019-07-05] MEDS: SACCHAROMYCES BOULARDII 250 MG CAPSULE PO ×2 (09:26→18:18)
[2019-07-05] MEDS: MONTELUKAST SODIUM 10 MG TABLET PO (09:26)
[2019-07-05] MEDS: SIMVASTATIN 10 MG TABLET PO (09:26)
[2019-07-05] MEDS: PANTOPRAZOLE 40 MG TABLET PO ×2 (09:26→20:15)
[2019-07-05] MEDS: SODIUM CHLORIDE 0.9% IV 250 ML 30 ML IV CONT (10:10)
[2019-07-05] MEDS: EUCERIN CREAM 120 GM JAR 1 APPLIC TOPICAL (10:11)
[2019-07-05] MEDS: EPOETIN ALFA 10,000 UNITS/ML VIAL 10000 UNITS SUB-Q (10:12)
--- NOTE | 2019-07-05 13:03 | PM.PNNEP ---
Progress Note: A&P Assessment and Plan (1) JINA (acute kidney injury): Code(s): N17.9 - Acute kidney failure, unspecified Status: Acute Assessment and Plan: her baseline creatinine runs around 2-2.5. On admission her creatinine was 4.6 and has fallen 3.7. Urine electrolytes are pending. Getting IV fluids and seems to be improving. (2) Chronic kidney disease, stage 4 (severe): Code(s): N18.4 - Chronic kidney disease, stage 4 (severe) Status: Chronic Assessment and Plan: Baseline creatinine around 2 to 2.5. (3) Chronic anemia: Code(s): D64.9 - Anemia, unspecified Status: Chronic Assessment and Plan: Hemoglobin up and down. Give Epogen (4) MDS (myelodysplastic syndrome), low grade: Code(s): D46.20 - Refractory anemia with excess of blasts, unspecified Status: Chronic (5) Hypokalemia: Code(s): E87.6 - Hypokalemia Status: Acute (6) Hypertension: Qualifiers: Hypertension type: essential hypertension Qualified Code(s): I10 - Essential (primary) hypertension Code(s): I10 - Essential (primary) hypertension Status: Chronic Assessment and Plan: . blood pressure is well controlled Additional Plan Subjective Date/time seen: 07/05/19 13:03 Interval history: Patient is alert. She is hungry for lunch. No chest pain or shortness of Breath Review of Systems Cardiovascular: Cardiovascular: Reports no additional cardiovascular complaints Respiratory: Respiratory: Reports no additional respiratory complaints Gastrointestinal: Gastrointestinal: Reports no additional gastrointestinal complaints Genitourinary: Genitourinary: Reports no additional female genitourinary complaints Exam Narrative: Exam Narrative: Well developed well-nourished in no acute distress Lungs clear Heart regular without rub Abdomen bowel sounds positive soft nontender Extremities no edema Skin no rash Objective Data Vital Signs Vital Signs: Vital Signs - 24 hr 07/04/19 14:00 07/04/19 17:45 07/04/19 22:00 Temperature 36.2 C L 36.7 C Pulse Rate 84 94 91 Respiratory Rate 16 16 Blood Pressure 130/64 111/56 L Pulse Oximetry 98 98 07/05/19 06:00 07/05/19 09:21 07/05/19 10:30 Temperature 36.5 C 36.4 C L Pulse Rate 90 87 75 Respiratory Rate 16 14 Blood Pressure 118/60 106/57 L Pulse Oximetry 97 100 07/05/19 10:47 07/05/19 11:47 07/05/19 12:47 Temperature 36.5 C 36.2 C L 36.6 C Pulse Rate 74 80 83 Respiratory Rate 14 18 12 Blood Pressure 101/50 L 114/64 129/61 Pulse Oximetry 100 99 100 Intake/Output Intake/Output: Intake & Output 07/02/19 07/03/19 07/04/19 07/05/19 23:59 23:59 23:59 23:59 Intake Total 1000 2520 1660 Output Total 725 500 Balance 1000 1795 1160 Meds/Results Medications: Active Medications Generic Name Dose Route Start Last Admin Trade Name Freq PRN Reason Stop Dose Admin Acetaminophen 650 mg 07/03/19 22:26 Tylenol Tablet PO Q4H PRN Mild Pain (1-3) or Fever Allopurinol 100 mg 07/04/19 09:00 07/05/19 09:20 Zyloprim PO 100 mg BID LYLE Administration Carvedilol 25 mg 07/04/19 09:00 07/05/19 09:21 Coreg PO 25 mg BID LYLE Administration Doxycycline Hyclate 100 mg 07/04/19 09:00 07/05/19 09:26 Vibramycin Tab PO 100 mg Q12HR LYLE Administration Epoetin Nixon 10,000 units 07/05/19 09:00 07/05/19 10:12 Epogen SUB-Q 10,000 units [id number] LYLE Administration Fluticasone Propionate 2 spray 07/04/19 21:00 07/04/19 20:57 Flonase 0.05% Nasal [place] NASAL 2 spray HS LYLE Administration Hydrocortisone 1 applic 07/04/19 06:14 Hydrocortisone 1% Cream TOPICAL PRN PRN Itching Lactated Ringer's 1,000 mls @ 75 mls/hr 07/03/19 21:15 07/05/19 05:25 Lr - Lactated Ringers Iv IV CONT 75 mls/hr .[id number] LYLE Administration Sodium Chloride 250 mls @ 30 mls/hr 07/05/19 06:
--- NOTE | 2019-07-05 13:31 | PCOTNOTE ---
OT evaluation attempted this date. Pt refusing therapy at this time stating that she is too tired and just wanting to eat lunch and rest. Will attempt OT treatment tomorrow.
--- NOTE | 2019-07-05 14:21 | P.PNIM_ITS ---
Progress Note: A&P Assessment and Plan (1) Acute on chronic renal failure: Qualifiers: Acute renal failure type: unspecified Chronic kidney disease stage: unspecified stage Qualified Code(s): N17.9 - Acute kidney failure, unspecified; N18.9 - Chronic kidney disease, unspecified Code(s): N17.9 - Acute kidney failure, unspecified; N18.9 - Chronic kidney disease, unspe cified Status: Acute Assessment and Plan: May be secondary to recent bumex use vs. intravascular dehydration. Cr improved to 3.70 this morning * Continue Light IV hydration at 75 mL/hr for now; likely d/c tomorrow as to not fluid overload * Trend BMP this afternoon and tomorrow * Monitor urine output and renal function closely. * Hold nephrotoxic agents and renally dose medications. * Nephrology has been consulted by ER provider; appreciate recommendations (2) MDS (myelodysplastic syndrome), low grade: Code(s): D46.20 - Refractory anemia with excess of blasts, unspecified Status: Chronic Assessment and Plan: Platelets have improved since last hospitalization. 61k this morning; decreased * Continue to monitor blood counts. * Encourage nutrition. * Continue procrit injections. * Continue heme-onc recommendations. (3) Diverticular disease of intestine with perforation and abscess: Code(s): K57.80 - Diverticulitis of intestine, part unspecified, with perforation and abscess without bleeding Status: Chronic Assessment and Plan: The patient is planning to have an elective partial colectomy in the near future. * Continue general surgery recommendations. * Monitor (4) Generalized weakness: Code(s): R53.1 - Weakness Status: Chronic Assessment and Plan: * Continue physical therapy. * Encourage PO nutrition. (5) Chronic anemia: Code(s): D64.9 - Anemia, unspecified Status: Chronic Assessment and Plan: Likely secondary to myelodysplastic syndrome. Hgb 6.6 this morning; down likely due to dilution with IVF. No signs of acute blood loss. transfused 1 u pRBC. * Will order H&H this afternoon. * Trend tomorrow morning * Continue heme-onc recommendations. * Monitor blood counts * Transfuse prn. (6) Hypokalemia: Code(s): E87.6 - Hypokalemia Status: Acute Assessment and Plan: K 2.9 this morning. Potassium replaced PO * Assess K level this afternoon with BMP * Replace as need; patient stated she does okay with tablets * Continue to trend Subjective Date/time seen: 07/05/19 14:21 Interval history: Patient is a 79 yo F with history of known CDK stage IV, Myelodysplastic syndrome, and recurrent diverticulitis with colonic abscesses which required a surgical drain be placed, and has had multiple recent hospital visits in the past 2 months who is here for evaluation for acute on chronic santos al failure found on outpatient labs. Patient states she is feeling well today. She has some abdominal cramping, but other than that, no other complaints at the moment. Denies f/c/s, myalgias/arthralgias, cp/palpitations, sob/cough, current n/v/d/c, abd pain, changes in BMs, dysuria, hematuria, cloudy urine, calf pain/swelling. Review of Systems Review of Systems: All systems reviewed & are unremarkable except as noted in HPI and below Exam Narrative
--- NOTE | 2019-07-05 14:21 | PM.IMPN ---
Progress Note: A&P Assessment and Plan (1) Acute on chronic renal failure: Qualifiers: Acute renal failure type: unspecified Chronic kidney disease stage: unspecified stage Qualified Code(s): N17.9 - Acute kidney failure, unspecified; N18.9 - Chronic kidney disease, unspecified Code(s): N17.9 - Acute kidney failure, unspecified; N18.9 - Chronic kidney disease, unspecified Status: Acute Assessment and Plan: May be secondary to recent bumex use vs. intravascular dehydration. Cr improved to 3.70 this morning Continue Light IV hydration at 75 mL/hr for now; likely d/c tomorrow as to not fluid overload Trend BMP this afternoon and tomorrow Monitor urine output and renal function closely. Hold nephrotoxic agents and renally dose medications. Nephrology has been consulted by ER provider; appreciate recommendations (2) MDS (myelodysplastic syndrome), low grade: Code(s): D46.20 - Refractory anemia with excess of blasts, unspecified Status: Chronic Assessment and Plan: Platelets have improved since last hospitalization. 61k this morning; decreased Continue to monitor blood counts. Encourage nutrition. Continue procrit injections. Continue heme-onc recommendations. (3) Diverticular disease of intestine with perforation and abscess: Code(s): K57.80 - Diverticulitis of intestine, part unspecified, with perforation and abscess without bleeding Status: Chronic Assessment and Plan: The patient is planning to have an elective partial colectomy in the near future. Continue general surgery recommendations. Monitor (4) Generalized weakness: Code(s): R53.1 - Weakness Status: Chronic Assessment and Plan: Continue physical therapy. Encourage PO nutrition. (5) Chronic anemia: Code(s): D64.9 - Anemia, unspecified Status: Chronic Assessment and Plan: Likely secondary to myelodysplastic syndrome. Hgb 6.6 this morning; down likely due to dilution with IVF. No signs of acute blood loss. transfused 1 u pRBC. Will order H&H this afternoon. Trend tomorrow morning Continue heme-onc recommendations. Monitor blood counts Transfuse prn. (6) Hypokalemia: Code(s): E87.6 - Hypokalemia Status: Acute Assessment and Plan: K 2.9 this morning. Potassium replaced PO Assess K level this afternoon with BMP Replace as need; patient stated she does okay with tablets Continue to trend Subjective Date/time seen: 07/05/19 14:21 Interval history: Patient is a 79 yo F with history of known CDK stage IV, Myelodysplastic syndrome, and recurrent diverticulitis with colonic abscesses which required a surgical drain be placed, and has had multiple recent hospital visits in the past 2 months who is here for evaluation for acute on chronic renal failure found on outpatient labs. Patient states she is feeling well today. She has some abdominal cramping, but other than that, no other complaints at the moment. Denies f/c/s, myalgias/arthralgias, cp/palpitations, sob/cough, current n/v/d/c, abd pain, changes in BMs, dysuria, hematuria, cloudy urine, calf pain/swelling. Review of Systems Review of Systems: All systems reviewed & are unremarkable except as noted in HPI and below Exam Narrative: Exam Narrative: Patient lying supine in bed with head raised at time of visit Const: General: cooperative, comfortable, no acute distress, alert, awake and ill appearing chronically Nutritional Appearance: thin and underweight Orientation/consciousness: patient oriented x3 HENMT: Head: normocephalic General nose exam: Normal external nose present Face and sinus: face symmetric Mouth: Yes lip normal Eyes: Gene
[2019-07-05 14:54] LABS: Hematocrit 26.4 % (37.0-47.0); Hemoglobin 8.1 g/dL (12.0-15.0)
[2019-07-05 15:07] LABS: Blood Urea Nitrogen 46 mg/dL (7-17); Calcium 7.8 mg/dL (8.4-10.2); Carbon Dioxide 23 mmol/L (22-30); Chloride 100 mmol/L (98-107); Estimated CRCL calculation 10 ml/min; Estimated Glomerular Filt Rate 12; Glucose 106 mg/dL (65-105); Magnesium 1.2 mg/dL (1.6-2.3); Potassium 3.3 mmol/L (3.4-5.0); Sodium 132 mmol/L (137-145)
[2019-07-05 15:42] LABS: Iron 52 ug/dL (37-170)
[2019-07-05 15:50] LABS: Percent Iron Saturation 46 % (20-50)
[2019-07-05] MEDS: MAGNESIUM SULF 1 GM/D5W 100 ML 1 GM/100 ML BAG IVPB (18:56)
[2019-07-05] MEDS: FLUTICASONE PROPIONATE 0.05% NA SPR 16 GM BTL (*BKC) 2 SPRAY NASAL (20:15)
[2019-07-06 05:34] VITALS: BP 130/73; PULSE 91; RESP 16; TEMP 36.5; O2SAT 97
[2019-07-06 06:00] LABS: Basophils Percent Auto 0.2 % (0.2-1.2); Eosinophils Absolute Auto 0.1 K/mm3 (0-0.3); Eosinophils Percent Auto 2.7 % (0-4.4); Hematocrit 24.8 % (37.0-47.0); Hemoglobin 7.7 g/dL (12.0-15.0); Immature Granulocyte Absolute 0.01 K/mm3 (0.00-0.031); Immature Granulocyte Percent A 0.2 % (0-0.5); Lymphocytes Absolute Auto 1.23 K/mm3 (0.9-3.2); Lymphocytes Percent Auto 29.8 % (18.3-44.2); Mean Corpuscular Hemoglobin 30.6 pg (26-34); Mean Corpuscular Volume 98.4 fl (80-100); Mean Platelet Volume 12.4 fl (7.4-10.4); Monocytes Absolute Auto 0.3 K/mm3 (0.1-0.6); Monocytes Percent Auto 7.3 % (2.6-8.5); Neutrophils Absolute Auto 2.5 K/mm3 (1.3-6.7); Neutrophils Percent Auto 59.8 % (45.5-73.1); Platelet Count Result 66 k/mm3 (150-375); Red Blood Count 2.52 M/mm3 (4.2-5.4); Red Cell Distribution Width 19.6 % (11.5-14.5); White Blood Count 4.1 K/mm3 (4.5-10.0)
[2019-07-06 06:21] LABS: Blood Urea Nitrogen 45 mg/dL (7-17); Calcium 8.4 mg/dL (8.4-10.2); Carbon Dioxide 25 mmol/L (22-30); Chloride 102 mmol/L (98-107); Estimated CRCL calculation 11 ml/min; Estimated Glomerular Filt Rate 14; Glucose 78 mg/dL (65-105); Magnesium 1.4 mg/dL (1.6-2.3); Phosphorus 3.7 mg/dL (2.5-4.5); Potassium 4.4 mmol/L (3.4-5.0); Sodium 131 mmol/L (137-145)
--- NOTE | 2019-07-06 09:09 | PM.PNNEP ---
Progress Note: A&P Assessment and Plan (1) JINA (acute kidney injury): Code(s): N17.9 - Acute kidney failure, unspecified Status: Acute Assessment and Plan: her baseline creatinine runs around 2-2.5. On admission her creatinine was 4.6 Then 3.7 and now down to 3.2. Urine electrolytes are non prerenal Getting IV fluids and seems to be improving. she has an appetite now. will continue IV fluids. Check another renal panel tomorrow. (2) Chronic kidney disease, stage 4 (severe): Code(s): N18.4 - Chronic kidney disease, stage 4 (severe) Status: Chronic Assessment and Plan: Baseline creatinine around 2 to 2.5. (3) Chronic anemia: Code(s): D64.9 - Anemia, unspecified Status: Chronic Assessment and Plan: Hemoglobin up and down. Giving Epogen (4) MDS (myelodysplastic syndrome), low grade: Code(s): D46.20 - Refractory anemia with excess of blasts, unspecified Status: Chronic (5) Hypokalemia: Code(s): E87.6 - Hypokalemia Status: Acute Assessment and Plan: Resolved (6) Hypertension: Qualifiers: Hypertension type: essential hypertension Qualified Code(s): I10 - Essential (primary) hypertension Code(s): I10 - Essential (primary) hypertension Status: Chronic Assessment and Plan: . blood pressure is under good control Additional Plan Subjective Date/time seen: 07/06/19 09:09 Interval history: Patient is alert. Eating breakfast. She is hungry. No chest pain or shortness of Breath Review of Systems Cardiovascular: Cardiovascular: Reports no additional cardiovascular complaints Respiratory: Respiratory: Reports no additional respiratory complaints Gastrointestinal: Gastrointestinal: Reports no additional gastrointestinal complaints Genitourinary: Genitourinary: Reports no additional female genitourinary complaints Exam Narrative: Exam Narrative: Well developed well-nourished in no acute distress Lungs clear To auscultation Heart regular without rub Abdomen bowel sounds positive soft nontender Extremities no edema Skin no rash or subcu nodules Objective Data Vital Signs Vital Signs: Vital Signs - 24 hr 07/05/19 09:21 07/05/19 10:30 07/05/19 10:47 Temperature 36.4 C L 36.5 C Pulse Rate 87 75 74 Respiratory Rate 14 14 Blood Pressure 106/57 L 101/50 L Pulse Oximetry 100 100 07/05/19 11:47 07/05/19 12:47 07/05/19 13:03 Temperature 36.2 C L 36.6 C 36.6 C Pulse Rate 80 83 80 Respiratory Rate 18 12 16 Blood Pressure 114/64 129/61 128/71 Pulse Oximetry 99 100 100 07/05/19 13:54 07/05/19 18:18 07/05/19 21:04 Temperature 37.1 C 36.6 C Pulse Rate 72 94 86 Respiratory Rate 16 16 Blood Pressure 128/70 127/82 Pulse Oximetry 97 99 07/06/19 05:34 Temperature 36.5 C Pulse Rate 91 Respiratory Rate 16 Blood Pressure 130/73 Pulse Oximetry 97 Intake/Output Intake/Output: Intake & Output 07/03/19 07/04/19 07/05/19 07/06/19 23:59 23:59 23:59 23:59 Intake Total 1000 2520 2760 768 Output Total 725 700 Balance 1000 1795 2060 768 Meds/Results Medications: Active Medications Generic Name Dose Route Start Last Admin Trade Name Freq PRN Reason Stop Dose Admin Acetaminophen 650 mg 07/03/19 22:26 Tylenol Tablet PO Q4H PRN Mild Pain (1-3) or Fever Allopurinol 100 mg 07/04/19 09:00 07/05/19 18:19 Zyloprim PO 100 mg BID LYLE Administration Carvedilol 25 mg 07/04/19 09:00 07/05/19 18:18 Coreg PO 25 mg BID LYLE Administration Doxycycline Hyclate 100 mg 07/04/19 09:00 07/05/19 20:15 Vibramycin Tab PO 100 mg Q12HR LYLE Administration Epoetin [place] 10,000 units 07/05/19 09:00 07/05/19 10:12 Epogen SUB-Q 10,000 units [id number] [facility] Administration Fluticasone Propionate 2 spray 07/04/19 21:00 07/05/19 20:15 Flonase 0.05% Nasal [place] NASAL 2 spray HS [facility] Admini
[2019-07-06 09:55] VITALS: PULSE 87
[2019-07-06] MEDS: EUCERIN CREAM 120 GM JAR 1 APPLIC TOPICAL (09:55)
[2019-07-06] MEDS: CHOLECALCIFEROL 1,000 UNIT TABLET 1000 UNITS PO (09:55)
[2019-07-06] MEDS: SACCHAROMYCES BOULARDII 250 MG CAPSULE PO ×2 (09:55→18:00)
[2019-07-06] MEDS: DOXYCYCLINE HYCLATE 100 MG TABLET PO ×2 (09:55→21:17)
[2019-07-06] MEDS: carvediloL 25 MG TABLET PO ×2 (09:55→18:00)
[2019-07-06] MEDS: allopurinoL 100 MG TABLET PO ×2 (09:55→18:00)
[2019-07-06] MEDS: VITAMIN B COMPLEX CAPSULE 1 CAP PO (09:55)
[2019-07-06] MEDS: MONTELUKAST SODIUM 10 MG TABLET PO (09:55)
[2019-07-06] MEDS: PANTOPRAZOLE 40 MG TABLET PO ×2 (09:55→21:17)
[2019-07-06] MEDS: MAGNESIUM SULFATE 3GM/D5W100ML 3 GM/100 ML BAG IVPB (11:13)
[2019-07-06] MEDS: LACTATED RINGERS 1,000 ML 75 ML IV CONT (12:49)
[2019-07-06 14:00] VITALS: BP 128/71; PULSE 80; RESP 16; TEMP 36.5; O2SAT 100
[2019-07-06 15:50] LABS: Hematocrit 24.8 % (37.0-47.0)
--- NOTE | 2019-07-06 17:14 | P.PNIM_ITS ---
Progress Note: A&P Assessment and Plan (1) Acute on chronic renal failure: Qualifiers: Acute renal failure type: unspecified Chronic kidney disease stage: unspecified stage Qualified Code(s): N17.9 - Acute kidney failure, unspecified; N18.9 - Chronic kidney disease, unspecified Code(s): N17.9 - Acute kidney failure, unspecified; N18.9 - Chronic kidney disease, unspe cified Status: Acute Assessment and Plan: May be secondary to recent bumex use vs. intravascular dehydration. Cr improved to 3.20 this morning * Continue Light IV hydration at 75 mL/hr for now; likely d/c tomorrow as to not fluid overload * Trend BMP this afternoon and tomorrow * Monitor urine output and renal function closely. * Hold nephrotoxic agents and renally dose medications. * Nephrology has been consulted by ER provider; appreciate recommendations (2) MDS (myelodysplastic syndrome), low grade: Code(s): D46.20 - Refractory anemia with excess of blasts, unspecified Status: Chronic Assessment and Plan: Platelets have improved since last hospitalization. 66k this morning; stable. * Continue to monitor blood counts. * Encourage nutrition. * Continue procrit injections. * Continue monitoring. She sees Retail Receiving Clerk at [facility]. * If something changes will consult our coroner/medical examiner, but it is not necessary at this time. (3) Diverticular disease of intestine with perforation and abscess: Code(s): K57.80 - Diverticulitis of intestine, part unspecified, with perforation and abscess without bleeding Status: Chronic Assessment and Plan: The patient is planning to have an elective partial colectomy in the near future. * Continue general surgery recommendations. * Monitor (4) Generalized weakness: Code(s): R53.1 - Weakness Status: Chronic Assessment and Plan: * Continue physical therapy. * Encourage PO nutrition. (5) Chronic anemia: Code(s): D64.9 - Anemia, unspecified Status: Chronic Assessment and Plan: Likely secondary to myelodysplastic syndrome. H&H 7.7/24.8 this morning; improved after 1 Unit of PRBC were transfused. Repeat H&H this afternoon showed 8.0/24.8%. The patient did report some issue with her hemorrhoids today and having some bright red blood on the toilet paper when she wipes but nothing significant. * Trend tomorrow morning * Continue monitoring and if something changes will consider consulting our coroner/medical examiner if necessary. * Monitor blood counts * Transfuse prn. (6) Hypokalemia: Code(s): E87.6 - Hypokalemia Status: Acute Assessment and Plan: K 4.4 this morning. Potassium replaced PO * Replace as need; patient stated she does okay with tablets * Continue to trend (7) Hypomagnesemia: Code(s): E83.42 - Hypomagnesemia Status: Acute Assessment and Plan: Mag was 1.4. Replenished with IV Mag 3g. Pending repeat Mag level. Additional Plan Time Spent With Patient Time with patient: 25 - 35 minutes Subjective Date/time seen: 07/06/19 17:14 Interval history: Date of service 07/06/2019: The patient reports feeling better today. She is taking a nap at this time he but otherwise is eating and drinking better. She denies feeling
--- NOTE | 2019-07-06 17:14 | PM.IMPN ---
Progress Note: A&P Assessment and Plan (1) Acute on chronic renal failure: Qualifiers: Acute renal failure type: unspecified Chronic kidney disease stage: unspecified stage Qualified Code(s): N17.9 - Acute kidney failure, unspecified; N18.9 - Chronic kidney disease, unspecified Code(s): N17.9 - Acute kidney failure, unspecified; N18.9 - Chronic kidney disease, unspecified Status: Acute Assessment and Plan: May be secondary to recent bumex use vs. intravascular dehydration. Cr improved to 3.20 this morning Continue Light IV hydration at 75 mL/hr for now; likely d/c tomorrow as to not fluid overload Trend BMP this afternoon and tomorrow Monitor urine output and renal function closely. Hold nephrotoxic agents and renally dose medications. Nephrology has been consulted by ER provider; appreciate recommendations (2) MDS (myelodysplastic syndrome), low grade: Code(s): D46.20 - Refractory anemia with excess of blasts, unspecified Status: Chronic Assessment and Plan: Platelets have improved since last hospitalization. 66k this morning; stable. Continue to monitor blood counts. Encourage nutrition. Continue procrit injections. Continue monitoring. She sees Home Decorator at [facility]. If something changes will consult our spray unit feeder, but it is not necessary at this time. (3) Diverticular disease of intestine with perforation and abscess: Code(s): K57.80 - Diverticulitis of intestine, part unspecified, with perforation and abscess without bleeding Status: Chronic Assessment and Plan: The patient is planning to have an elective partial colectomy in the near future. Continue general surgery recommendations. Monitor (4) Generalized weakness: Code(s): R53.1 - Weakness Status: Chronic Assessment and Plan: Continue physical therapy. Encourage PO nutrition. (5) Chronic anemia: Code(s): D64.9 - Anemia, unspecified Status: Chronic Assessment and Plan: Likely secondary to myelodysplastic syndrome. H&H 7.7/24.8 this morning; improved after 1 Unit of PRBC were transfused. Repeat H&H this afternoon showed 8.0/24.8%. The patient did report some issue with her hemorrhoids today and having some bright red blood on the toilet paper when she wipes but nothing significant. Trend tomorrow morning Continue monitoring and if something changes will consider consulting our spray unit feeder if necessary. Monitor blood counts Transfuse prn. (6) Hypokalemia: Code(s): E87.6 - Hypokalemia Status: Acute Assessment and Plan: K 4.4 this morning. Potassium replaced PO Replace as need; patient stated she does okay with tablets Continue to trend (7) Hypomagnesemia: Code(s): E83.42 - Hypomagnesemia Status: Acute Assessment and Plan: Mag was 1.4. Replenished with IV Mag 3g. Pending repeat Mag level. Additional Plan Time Spent With Patient Time with patient: 25 - 35 minutes Subjective Date/time seen: 07/06/19 17:14 Interval history: Date of service 07/06/2019: The patient reports feeling better today. She is taking a nap at this time he but otherwise is eating and drinking better. She denies feeling weak, fatigued, short of breath with exertion, or any other symptoms of low blood counts. She has a spray unit feeder at [facility]. She denies any chest pain, shortness of breath, fever, chills, nausea, vomiting, abdominal pain, constipation, diarrhea, leg swelling, calf pain or any other symptoms at this time. Review of Systems Review of Systems: All systems reviewed & are unremarkable except as note
[2019-07-06 18:00] VITALS: PULSE 92
[2019-07-06] MEDS: FLUTICASONE PROPIONATE 0.05% NA SPR 16 GM BTL (*BKC) 2 SPRAY NASAL (21:17)
[2019-07-06 22:00] VITALS: BP 133/84; PULSE 90; RESP 15; TEMP 36.5; O2SAT 98
[2019-07-07] MEDS: LACTATED RINGERS 1,000 ML 75 ML IV CONT ×2 (02:02→15:08)
[2019-07-07 05:33] VITALS: BP 139/71; PULSE 90; RESP 14; TEMP 36.6; O2SAT 97
[2019-07-07 06:07] LABS: Basophils Percent Auto 0.2 % (0.2-1.2); Eosinophils Absolute Auto 0.1 K/mm3 (0-0.3); Eosinophils Percent Auto 2.9 % (0-4.4); Hematocrit 24.5 % (37.0-47.0); Hemoglobin 7.5 g/dL (12.0-15.0); Immature Granulocyte Absolute 0.01 K/mm3 (0.00-0.031); Immature Granulocyte Percent A 0.2 % (0-0.5); Immature Platelet Fraction Pct 4.1 % (0.9-11.2); Lymphocytes Percent Auto 28.6 % (18.3-44.2); Mean Corpuscular HGB Conc 30.6 g/dl (32-36); Mean Platelet Volume 12.3 fl (7.4-10.4); Monocytes Absolute Auto 0.4 K/mm3 (0.1-0.6); Monocytes Percent Auto 7.7 % (2.6-8.5); Neutrophils Absolute Auto 2.7 K/mm3 (1.3-6.7); Neutrophils Percent Auto 60.4 % (45.5-73.1); Platelet Count Result 65 k/mm3 (150-375); Red Cell Distribution Width 19.2 % (11.5-14.5); White Blood Count 4.5 K/mm3 (4.5-10.0)
[2019-07-07 06:10] LABS: Albumin Level 1.9 g/dL (3.5-5.1); Blood Urea Nitrogen 36 mg/dL (7-17); Calcium 8.5 mg/dL (8.4-10.2); Carbon Dioxide 25 mmol/L (22-30); Chloride 101 mmol/L (98-107); Estimated CRCL calculation 11 ml/min; Estimated Glomerular Filt Rate 15; Glucose 81 mg/dL (65-105); Magnesium 1.9 mg/dL (1.6-2.3); Phosphorus 3.6 mg/dL (2.5-4.5); Potassium 3.9 mmol/L (3.4-5.0); Sodium 132 mmol/L (137-145)
[2019-07-07] MEDS: MONTELUKAST SODIUM 10 MG TABLET PO (09:19)
[2019-07-07] MEDS: VITAMIN B COMPLEX CAPSULE 1 CAP PO (09:19)
[2019-07-07] MEDS: PANTOPRAZOLE 40 MG TABLET PO ×2 (09:19→21:23)
[2019-07-07] MEDS: DOXYCYCLINE HYCLATE 100 MG TABLET PO ×2 (09:19→21:23)
[2019-07-07 09:20] VITALS: PULSE 83
[2019-07-07] MEDS: CHOLECALCIFEROL 1,000 UNIT TABLET 1000 UNITS PO (09:20)
[2019-07-07] MEDS: SACCHAROMYCES BOULARDII 250 MG CAPSULE PO ×2 (09:20→17:52)
[2019-07-07] MEDS: SIMVASTATIN 10 MG TABLET PO (09:20)
[2019-07-07] MEDS: allopurinoL 100 MG TABLET PO ×2 (09:20→17:52)
[2019-07-07] MEDS: carvediloL 25 MG TABLET PO ×2 (09:20→17:52)
[2019-07-07] MEDS: EPOETIN ALFA 10,000 UNITS/ML VIAL 10000 UNITS SUB-Q (09:21)
[2019-07-07] MEDS: EUCERIN CREAM 120 GM JAR 1 APPLIC TOPICAL (09:21)
--- NOTE | 2019-07-07 10:45 | PM.PNNEP ---
Progress Note: A&P Assessment and Plan (1) JINA (acute kidney injury): Code(s): N17.9 - Acute kidney failure, unspecified Status: Acute Assessment and Plan: her baseline creatinine runs around 2-2.5. On admission her creatinine was 4.6 Now down to 3.1 Urine electrolytes are non prerenal Getting IV fluids and seems to be improving. she has an appetite now. She is eating well. Will go 1 more day with the IV fluids. (2) Chronic kidney disease, stage 4 (severe): Code(s): N18.4 - Chronic kidney disease, stage 4 (severe) Status: Chronic Assessment and Plan: Baseline creatinine around 2 to 2.5. (3) Chronic anemia: Code(s): D64.9 - Anemia, unspecified Status: Chronic Assessment and Plan: Hemoglobin up and down. Giving Epogen (4) MDS (myelodysplastic syndrome), low grade: Code(s): D46.20 - Refractory anemia with excess of blasts, unspecified Status: Chronic Assessment and Plan: Stable (5) Hypokalemia: Code(s): E87.6 - Hypokalemia Status: Acute Assessment and Plan: Resolved (6) Hypertension: Qualifiers: Hypertension type: essential hypertension Qualified Code(s): I10 - Essential (primary) hypertension Code(s): I10 - Essential (primary) hypertension Status: Chronic Assessment and Plan: . blood pressure is under good control Currently on carvedilol. Additional Plan Subjective Date/time seen: 07/07/19 10:45 Interval history: Patient is alert. Sitting up in a chair and feels good. No urinary problems. Review of Systems Cardiovascular: Cardiovascular: Reports no additional cardiovascular complaints Respiratory: Respiratory: Reports no additional respiratory complaints Gastrointestinal: Gastrointestinal: Reports no additional gastrointestinal complaints Genitourinary: Genitourinary: Reports no additional female genitourinary complaints Exam Narrative: Exam Narrative: Well developed well-nourished in no acute distress Lungs clear bilaterally Heart regular without rub Abdomen bowel sounds positive soft nontender Extremities no edema Skin no rash Objective Data Vital Signs Vital Signs: Vital Signs - 24 hr 07/06/19 14:00 07/06/19 18:00 07/06/19 22:00 Temperature 36.5 C 36.5 C Pulse Rate 80 92 90 Respiratory Rate 16 15 Blood Pressure 128/71 133/84 Pulse Oximetry 100 98 04/01/20 05:33 07/07/19 09:20 Temperature 36.6 C Pulse Rate 90 83 Respiratory Rate 14 Blood Pressure 139/71 Pulse Oximetry 97 Intake/Output Intake/Output: Intake & Output 07/04/19 07/05/19 07/06/19 07/07/19 23:59 23:59 23:59 23:59 Intake Total 2520 2760 2436 1705 Output Total 725 700 0 200 Balance 1795 2060 2436 1505 Meds/Results Medications: Active Medications Generic Name Dose Route Start Last Admin Trade Name Freq PRN Reason Stop Dose Admin Acetaminophen 650 mg 07/03/19 22:26 Tylenol Tablet PO Q4H PRN Mild Pain (1-3) or Fever Allopurinol 100 mg 07/04/19 09:00 07/07/19 09:20 Zyloprim PO 100 mg BID LYLE Administration Carvedilol 25 mg 07/04/19 09:00 07/07/19 09:20 Coreg PO 25 mg BID LYLE Administration Doxycycline Hyclate 100 mg 07/04/19 09:00 07/07/19 09:19 Vibramycin Tab PO 100 mg Q12HR LYLE Administration Epoetin Nixon 10,000 units 07/05/19 09:00 07/07/19 09:21 Epogen SUB-Q 10,000 units [id number] LYLE Administration Fluticasone Propionate 2 spray 07/04/19 21:00 07/06/19 21:17 Flonase 0.05% Nasal [place] NASAL 2 spray HS LYLE Administration Hydrocortisone 1 applic 07/04/19 06:14 Hydrocortisone 1% Cream TOPICAL PRN PRN Itching Lactated Ringer's 1,000 mls @ 75 mls/hr 07/03/19 21:15 07/07/19 05:31 Lr - Lactated Ringers Iv IV CONT 75 mls/hr .[id number] LYLE Infusion Melatonin 5 mg 07/04/19 06:14 Melatonin PO HS PRN insomnia Mo
--- NOTE | 2019-07-07 12:02 | P.PNIM_ITS ---
Progress Note: A&P Assessment and Plan (1) Acute on chronic renal failure: Qualifiers: Acute renal failure type: unspecified Chronic kidney disease stage: unspecified stage Qualified Code(s): N17.9 - Acute kidney failure, unspecified; N18.9 - Chronic kidney disease, unspecified Code(s): N17.9 - Acute kidney failure, unspecified; N18.9 - Chronic kidney disease, unspe cified Status: Acute Assessment and Plan: May be secondary to recent bumex use vs. intravascular dehydration. * Cr improved to 3.10 this morning * Continue Light IV hydration at 75 mL/hr for now * I talked to Dr. Hernandez who recommended continuing IV fluids and monitoring renal function and if still trending down tomorrow could possibly discontinue fluids. * Monitor urine output and renal function closely. * Hold nephrotoxic agents and renally dose medications. * Appreciate recommendations from nephrology. (2) MDS (myelodysplastic syndrome), low grade: Code(s): D46.20 - Refractory anemia with excess of blasts, unspecified Status: Chronic Assessment and Plan: Platelets have improved since last hospitalization. 65k this morning; stable. * Continue to monitor blood counts. * Encourage nutrition. * Continue procrit injections. * Continue monitoring. She sees Optometric Aide at [facility]. * If something changes will consult our roll capper, but it is not necessary at this time. (3) Diverticular disease of intestine with perforation and abscess: Code(s): K57.80 - Diverticulitis of intestine, part unspecified, with perforation and abscess without bleeding Status: Chronic Assessment and Plan: The patient is planning to have an elective partial colectomy in the near future. * Continue general surgery recommendations. * Monitor (4) Generalized weakness: Code(s): R53.1 - Weakness Status: Chronic Assessment and Plan: * Continue physical therapy. * Encourage PO nutrition. (5) Chronic anemia: Code(s): D64.9 - Anemia, unspecified Status: Chronic Assessment and Plan: Likely secondary to myelodysplastic syndrome. H&H 7.5/24.5 this morning; improved after 1 Unit of PRBC were transfused. Repeat H&H this afternoon. The patient did report some issue with her hemorrhoids today and having some bright red blood on the toilet paper when she wipes but nothing significant. * Trend tomorrow morning * Continue monitoring and if something changes will consider consulting our roll capper if necessary. * Monitor blood counts * Transfuse prn. (6) Hypokalemia: Code(s): E87.6 - Hypokalemia Status: Acute Assessment and Plan: K 3.9 this morning. * Replace as need; patient stated she does okay with tablets * Continue to trend (7) Hypomagnesemia: Code(s): E83.42 - Hypomagnesemia Status: Acute Assessment and Plan: Mag was 1.9. Will recheck again in the morning. Additional Plan Time Spent With Patient Time with patient: 25 - 35 minutes Subjective Date/time seen: 07/07/19 12:02 Interval history: Date of service 07/07/2019: The patient reports feeling better today. She is reported sleeping well last night. She denies seeing anymore blood when she wipes after a bow
--- NOTE | 2019-07-07 12:02 | PM.IMPN ---
Progress Note: A&P Assessment and Plan (1) Acute on chronic renal failure: Qualifiers: Acute renal failure type: unspecified Chronic kidney disease stage: unspecified stage Qualified Code(s): N17.9 - Acute kidney failure, unspecified; N18.9 - Chronic kidney disease, unspecified Code(s): N17.9 - Acute kidney failure, unspecified; N18.9 - Chronic kidney disease, unspecified Status: Acute Assessment and Plan: May be secondary to recent bumex use vs. intravascular dehydration. Cr improved to 3.10 this morning Continue Light IV hydration at 75 mL/hr for now I talked to Dr. Hernandez who recommended continuing IV fluids and monitoring renal function and if still trending down tomorrow could possibly discontinue fluids. Monitor urine output and renal function closely. Hold nephrotoxic agents and renally dose medications. Appreciate recommendations from nephrology. (2) MDS (myelodysplastic syndrome), low grade: Code(s): D46.20 - Refractory anemia with excess of blasts, unspecified Status: Chronic Assessment and Plan: Platelets have improved since last hospitalization. 65k this morning; stable. Continue to monitor blood counts. Encourage nutrition. Continue procrit injections. Continue monitoring. She sees Investigator Internal Affairs at [facility]. If something changes will consult our milieu counselor, but it is not necessary at this time. (3) Diverticular disease of intestine with perforation and abscess: Code(s): K57.80 - Diverticulitis of intestine, part unspecified, with perforation and abscess without bleeding Status: Chronic Assessment and Plan: The patient is planning to have an elective partial colectomy in the near future. Continue general surgery recommendations. Monitor (4) Generalized weakness: Code(s): R53.1 - Weakness Status: Chronic Assessment and Plan: Continue physical therapy. Encourage PO nutrition. (5) Chronic anemia: Code(s): D64.9 - Anemia, unspecified Status: Chronic Assessment and Plan: Likely secondary to myelodysplastic syndrome. H&H 7.5/24.5 this morning; improved after 1 Unit of PRBC were transfused. Repeat H&H this afternoon. The patient did report some issue with her hemorrhoids today and having some bright red blood on the toilet paper when she wipes but nothing significant. Trend tomorrow morning Continue monitoring and if something changes will consider consulting our milieu counselor if necessary. Monitor blood counts Transfuse prn. (6) Hypokalemia: Code(s): E87.6 - Hypokalemia Status: Acute Assessment and Plan: K 3.9 this morning. Replace as need; patient stated she does okay with tablets Continue to trend (7) Hypomagnesemia: Code(s): E83.42 - Hypomagnesemia Status: Acute Assessment and Plan: Mag was 1.9. Will recheck again in the morning. Additional Plan Time Spent With Patient Time with patient: 25 - 35 minutes Subjective Date/time seen: 07/07/19 12:02 Interval history: Date of service 07/07/2019: The patient reports feeling better today. She is reported sleeping well last night. She denies seeing anymore blood when she wipes after a bowel movement which occurred yesterday twice. She attributed this to her hemorrhoid issues. She did not want any medications for her hemorrhoids at this time. She denies feeling weak, fatigued, short of breath with exertion, or any other symptoms of low blood counts. She has a milieu counselor at [facility]. She denies any chest pain, shortness of breath, fever, chills, nausea, vomiting, abdominal pain, constipati
[2019-07-07 14:00] VITALS: BP 135/70; PULSE 72; RESP 12; TEMP 36.7; O2SAT 96
[2019-07-07 15:01] LABS: Hematocrit 24.3 % (37.0-47.0); Hemoglobin 7.6 g/dL (12.0-15.0)
[2019-07-07 17:52] VITALS: PULSE 78
[2019-07-07 18:37] LABS: Chloride Rand Ur 40 mmol/L (32-290); Chloride/Creatinine Rand Ur 53 (38-318); Creatinine Random Urine 76 mg/dL (20-275)
[2019-07-07 19:45] VITALS: BP 123/70; PULSE 78; RESP 16; TEMP 36.6; O2SAT 100
[2019-07-07] MEDS: FLUTICASONE PROPIONATE 0.05% NA SPR 16 GM BTL (*BKC) 2 SPRAY NASAL (21:23)
[2019-07-08] MEDS: LACTATED RINGERS 1,000 ML 75 ML IV CONT (04:33)
[2019-07-08 05:26] VITALS: BP 137/70; PULSE 79; RESP 16; TEMP 36.9; O2SAT 97
[2019-07-08 06:18] LABS: Hematocrit 26.4 % (37.0-47.0); Hemoglobin 8.3 g/dL (12.0-15.0); Immature Platelet Fraction Pct 4.7 % (0.9-11.2); Mean Corpuscular HGB Conc 31.4 g/dl (32-36); Mean Corpuscular Hemoglobin 30.4 pg (26-34); Mean Corpuscular Volume 96.7 fl (80-100); Mean Platelet Volume 12.6 fl (7.4-10.4); Platelet Count Result 72 k/mm3 (150-375); Red Blood Count 2.73 M/mm3 (4.2-5.4); White Blood Count 5.5 K/mm3 (4.5-10.0)
[2019-07-08 06:22] LABS: Blood Urea Nitrogen 33 mg/dL (7-17); Calcium 8.9 mg/dL (8.4-10.2); Carbon Dioxide 27 mmol/L (22-30); Chloride 101 mmol/L (98-107); Estimated CRCL calculation 11 ml/min; Estimated Glomerular Filt Rate 15; Glucose 80 mg/dL (65-105); Magnesium 1.7 mg/dL (1.6-2.3); Phosphorus 3.5 mg/dL (2.5-4.5); Potassium 3.9 mmol/L (3.4-5.0); Sodium 131 mmol/L (137-145)
[2019-07-08 09:00] VITALS: PULSE 82
[2019-07-08] MEDS: VITAMIN B COMPLEX CAPSULE 1 CAP PO (09:00)
[2019-07-08] MEDS: carvediloL 25 MG TABLET PO ×2 (09:00→17:11)
[2019-07-08] MEDS: DOXYCYCLINE HYCLATE 100 MG TABLET PO ×2 (09:00→21:04)
[2019-07-08] MEDS: allopurinoL 100 MG TABLET PO ×2 (09:00→17:11)
[2019-07-08] MEDS: PANTOPRAZOLE 40 MG TABLET PO ×2 (09:00→21:04)
[2019-07-08] MEDS: SACCHAROMYCES BOULARDII 250 MG CAPSULE PO ×2 (09:00→17:11)
[2019-07-08] MEDS: CHOLECALCIFEROL 1,000 UNIT TABLET 1000 UNITS PO (09:00)
[2019-07-08] MEDS: MONTELUKAST SODIUM 10 MG TABLET PO (09:00)
[2019-07-08] MEDS: EUCERIN CREAM 120 GM JAR 1 APPLIC TOPICAL (09:01)
--- NOTE | 2019-07-08 09:13 | PM.PNNEP ---
Progress Note: A&P Assessment and Plan (1) JINA (acute kidney injury): Code(s): N17.9 - Acute kidney failure, unspecified Status: Acute Assessment and Plan: her baseline creatinine runs around 2-2.5. Her creatinine has been stable since 07/05. I think we can stop the IV fluids. Recheck creatinine tomorrow. (2) Chronic kidney disease, stage 4 (severe): Code(s): N18.4 - Chronic kidney disease, stage 4 (severe) Status: Chronic Assessment and Plan: Baseline creatinine around 2 to 2.5. (3) Chronic anemia: Code(s): D64.9 - Anemia, unspecified Status: Chronic Assessment and Plan: Hemoglobin up and down. Giving Epogen (4) MDS (myelodysplastic syndrome), low grade: Code(s): D46.20 - Refractory anemia with excess of blasts, unspecified Status: Chronic Assessment and Plan: Stable (5) Hypokalemia: Code(s): E87.6 - Hypokalemia Status: Acute Assessment and Plan: Resolved (6) Hypertension: Qualifiers: Hypertension type: essential hypertension Qualified Code(s): I10 - Essential (primary) hypertension Code(s): I10 - Essential (primary) hypertension Status: Chronic Assessment and Plan: . blood pressure is doing well. Currently on carvedilol. Additional Plan Subjective Date/time seen: 07/08/19 09:13 Interval history: Patient is alert. Ate some breakfast this morning. She is still on IV fluids. No swelling or shortness of breath Review of Systems Cardiovascular: Cardiovascular: Reports no additional cardiovascular complaints Respiratory: Respiratory: Reports no additional respiratory complaints Gastrointestinal: Gastrointestinal: Reports no additional gastrointestinal complaints Genitourinary: Genitourinary: Reports no additional female genitourinary complaints Exam Narrative: Exam Narrative: Well developed well-nourished in no acute distress Lungs clear bilaterally Heart regular without rub Abdomen bowel sounds positive soft nontender Extremities no edema or cyanosis Skin no rash or subcu nodules Objective Data Vital Signs Vital Signs: Vital Signs - 24 hr 07/07/19 09:20 07/07/19 14:00 07/07/19 17:52 Temperature 36.7 C Pulse Rate 83 72 78 Respiratory Rate 12 Blood Pressure 135/70 Pulse Oximetry 96 07/07/19 19:45 07/08/19 05:26 07/08/19 09:00 Temperature 36.6 C 36.9 C Pulse Rate 78 79 82 Respiratory Rate 16 16 Blood Pressure 123/70 137/70 Pulse Oximetry 100 97 Intake/Output Intake/Output: Intake & Output 07/05/19 07/06/19 07/07/19 07/08/19 23:59 23:59 23:59 23:59 Intake Total 2760 2436 3654 950 Output Total 700 0 200 350 Balance 2060 2436 3454 600 Meds/Results Medications: Active Medications Generic Name Dose Route Start Last Admin Trade Name Freq PRN Reason Stop Dose Admin Acetaminophen 650 mg 07/03/19 22:26 Tylenol Tablet PO Q4H PRN Mild Pain (1-3) or Fever Allopurinol 100 mg 07/04/19 09:00 07/08/19 09:00 Zyloprim PO 100 mg BID LYLE Administration Carvedilol 25 mg 07/04/19 09:00 07/08/19 09:00 Coreg PO 25 mg BID LYLE Administration Doxycycline Hyclate 100 mg 07/04/19 09:00 07/08/19 09:00 Vibramycin Tab PO 100 mg Q12HR LYLE Administration Epoetin Nixon 10,000 units 07/05/19 09:00 07/07/19 09:21 Epogen SUB-Q 10,000 units [id number]@[id number] LYLE Administration Fluticasone Propionate 2 spray 07/04/19 21:00 07/07/19 21:23 Flonase 0.05% Nasal [place] NASAL 2 spray HS LYLE Administration Hydrocortisone 1 applic 07/04/19 06:14 Hydrocortisone 1% Cream TOPICAL PRN PRN Itching Lactated Ringer's 1,000 mls @ 75 mls/hr 07/03/19 21:15 07/08/19 04:33 Lr - Lactated Ringers Iv IV CONT 75 mls/hr .[id number] LYLE Administration Melatonin 5 mg 07/04/19 06:14 Melatonin PO HS PRN insomnia Montelukast Sodium 10 mg 07/04/19
--- NOTE | 2019-07-08 09:40 | P.PNIM_ITS ---
Progress Note: A&P Assessment and Plan (1) Acute on chronic renal failure: Qualifiers: Acute renal failure type: unspecified Chronic kidney disease stage: unspecified stage Qualified Code(s): N17.9 - Acute kidney failure, unspecified; N18.9 - Chronic kidney disease, unspecified Code(s): N17.9 - Acute kidney failure, unspecified; N18.9 - Chronic kidney disease, unspe cified Status: Acute Assessment and Plan: May be secondary to recent bumex use vs. intravascular dehydration. * Cr improved to 3.10 this morning, stable. * Nephrology recommended discontinuing IV fluids, he states since her renal function has plateaued the last few days will recheck renal function tomorrow and Dr. Hernandez states if still stable tomorrow will consider discussing dialysis with the patient. * Urine output in the last 24 hours shows only 350 cc. * Hold nephrotoxic agents and renally dose medications. * Appreciate recommendations from nephrology. Continue monitoring urine output and renal function closely. (2) MDS (myelodysplastic syndrome), low grade: Code(s): D46.20 - Refractory anemia with excess of blasts, unspecified Status: Chronic Assessment and Plan: Platelets have improved since last hospitalization. * 72k this morning; improved. * Continue to monitor blood counts. * Encourage nutrition. * Continue procrit injections. * Continue monitoring. She sees Wireworker Supervisor at [facility]. * If something changes will consult our wick and base assembler, but it is not necessary at this time. (3) Diverticular disease of intestine with perforation and abscess: Code(s): K57.80 - Diverticulitis of intestine, part unspecified, with perforation and abscess without bleeding Status: Chronic Assessment and Plan: The patient is planning to have an elective partial colectomy in the near future. * Continue general surgery recommendations. * Monitor (4) Generalized weakness: Code(s): R53.1 - Weakness Status: Chronic Assessment and Plan: * Continue physical therapy. * Encourage PO nutrition. (5) Chronic anemia: Code(s): D64.9 - Anemia, unspecified Status: Chronic Assessment and Plan: Likely secondary to myelodysplastic syndrome. * H&H 8.3/26.4% this morning. Stable, improved. * Trend tomorrow morning * Continue monitoring and if something changes will consider consulting our wick and base assembler if necessary. * Monitor blood counts * Transfuse prn. (6) Hypokalemia: Code(s): E87.6 - Hypokalemia Status: Acute Assessment and Plan: K 3.9 this morning. * Replace as need; patient stated she does okay with tablets * Continue to trend (7) Hypomagnesemia: Code(s): E83.42 - Hypomagnesemia Status: Acute Assessment and Plan: Mag was 1.7. Will recheck again in the morning. Additional Plan Time Spent With Patient Time with patient: 25 - 35 minutes Subjective Date/time seen: 07/08/19 09:40 Interval history: Date of service 07/08/2019: The patient reports some slight nausea this morning while eating her breakfast. She denies any vomiting and just stopped eating breakfast and she is feeling better. She does not want any antinausea medications at this time. She has
--- NOTE | 2019-07-08 09:40 | PM.IMPN ---
Progress Note: A&P Assessment and Plan (1) Acute on chronic renal failure: Qualifiers: Acute renal failure type: unspecified Chronic kidney disease stage: unspecified stage Qualified Code(s): N17.9 - Acute kidney failure, unspecified; N18.9 - Chronic kidney disease, unspecified Code(s): N17.9 - Acute kidney failure, unspecified; N18.9 - Chronic kidney disease, unspecified Status: Acute Assessment and Plan: May be secondary to recent bumex use vs. intravascular dehydration. Cr improved to 3.10 this morning, stable. Nephrology recommended discontinuing IV fluids, he states since her renal function has plateaued the last few days will recheck renal function tomorrow and Dr. Hernandez states if still stable tomorrow will consider discussing dialysis with the patient. Urine output in the last 24 hours shows only 350 cc. Hold nephrotoxic agents and renally dose medications. Appreciate recommendations from nephrology. Continue monitoring urine output and renal function closely. (2) MDS (myelodysplastic syndrome), low grade: Code(s): D46.20 - Refractory anemia with excess of blasts, unspecified Status: Chronic Assessment and Plan: Platelets have improved since last hospitalization. 72k this morning; improved. Continue to monitor blood counts. Encourage nutrition. Continue procrit injections. Continue monitoring. She sees Protective Signal Installer Helper at [facility]. If something changes will consult our hair spring winder, but it is not necessary at this time. (3) Diverticular disease of intestine with perforation and abscess: Code(s): K57.80 - Diverticulitis of intestine, part unspecified, with perforation and abscess without bleeding Status: Chronic Assessment and Plan: The patient is planning to have an elective partial colectomy in the near future. Continue general surgery recommendations. Monitor (4) Generalized weakness: Code(s): R53.1 - Weakness Status: Chronic Assessment and Plan: Continue physical therapy. Encourage PO nutrition. (5) Chronic anemia: Code(s): D64.9 - Anemia, unspecified Status: Chronic Assessment and Plan: Likely secondary to myelodysplastic syndrome. H&H 8.3/26.4% this morning. Stable, improved. Trend tomorrow morning Continue monitoring and if something changes will consider consulting our hair spring winder if necessary. Monitor blood counts Transfuse prn. (6) Hypokalemia: Code(s): E87.6 - Hypokalemia Status: Acute Assessment and Plan: K 3.9 this morning. Replace as need; patient stated she does okay with tablets Continue to trend (7) Hypomagnesemia: Code(s): E83.42 - Hypomagnesemia Status: Acute Assessment and Plan: Mag was 1.7. Will recheck again in the morning. Additional Plan Time Spent With Patient Time with patient: 25 - 35 minutes Subjective Date/time seen: 07/08/19 09:40 Interval history: Date of service 07/08/2019: The patient reports some slight nausea this morning while eating her breakfast. She denies any vomiting and just stopped eating breakfast and she is feeling better. She does not want any antinausea medications at this time. She has not seen anymore blood when she wipes after a bowel movement. She attributed this to her hemorrhoid issues. She denies feeling weak, fatigued, short of breath with exertion, or any other symptoms of low blood counts. She has a hair spring winder at [facility]. She denies any chest pain, shortness of breath, fever, chills, vomiting, abdominal pain, constipation, diarrhea, leg swelling, calf pain or any other sympto
[2019-07-08] MEDS: ALBUMIN HUMAN 25% 25 GM/100 ML 100 ML IVPB (11:57)
--- NOTE | 2019-07-08 13:58 | PCOTNOTE ---
Attempted to see patient this pm, however patient was sleeping soundly. Did not disturb patient for this reason.
[2019-07-08 14:00] VITALS: BP 152/79; PULSE 90; RESP 20; TEMP 36.7; O2SAT 99
[2019-07-08 17:11] VITALS: PULSE 95
[2019-07-08 21:01] VITALS: BP 150/79; PULSE 93; RESP 20; TEMP 36.8; O2SAT 98
[2019-07-08] MEDS: FLUTICASONE PROPIONATE 0.05% NA SPR 16 GM BTL (*BKC) 2 SPRAY NASAL (21:04)
[2019-07-09] VITALS (8 sets, daily range): BP systolic 137–165; BP diastolic 64–87; PULSE 80–91; RESP 16–18; TEMP 36.6–37; O2SAT 96–100
[2019-07-09] MEDS: ALBUMIN HUMAN 25% 25 GM/100 ML 100 ML IVPB ×2 (00:10→11:26)
[2019-07-09 05:16] LABS: Hematocrit 22.7 % (37.0-47.0); Immature Platelet Fraction Pct 3.1 % (0.9-11.2); Mean Corpuscular HGB Conc 30.4 g/dl (32-36); Mean Corpuscular Hemoglobin 29.9 pg (26-34); Mean Corpuscular Volume 98.3 fl (80-100); Mean Platelet Volume 11.8 fl (7.4-10.4); Platelet Count Result 64 k/mm3 (150-375); Red Blood Count 2.31 M/mm3 (4.2-5.4); Red Cell Distribution Width 18.6 % (11.5-14.5); White Blood Count 4.4 K/mm3 (4.5-10.0)
[2019-07-09 05:21] LABS: Albumin Level 2.3 g/dL (3.5-5.1); Blood Urea Nitrogen 31 mg/dL (7-17); Calcium 9.1 mg/dL (8.4-10.2); Carbon Dioxide 26 mmol/L (22-30); Chloride 101 mmol/L (98-107); Estimated CRCL calculation 12 ml/min; Estimated Glomerular Filt Rate 16; Glucose 80 mg/dL (65-105); Magnesium 1.5 mg/dL (1.6-2.3); Phosphorus 3.5 mg/dL (2.5-4.5); Potassium 3.8 mmol/L (3.4-5.0); Sodium 130 mmol/L (137-145)
[2019-07-09 05:57] LABS: Hemoglobin 6.9 g/dL (12.0-15.0)
[2019-07-09] MEDS: MAGNESIUM SULF 1 GM/D5W 100 ML 1 GM/100 ML BAG IVPB (08:52)
[2019-07-09] MEDS: CHOLECALCIFEROL 1,000 UNIT TABLET 1000 UNITS PO (08:53)
[2019-07-09] MEDS: PANTOPRAZOLE 40 MG TABLET PO (08:53)
[2019-07-09] MEDS: SIMVASTATIN 10 MG TABLET PO (08:53)
[2019-07-09] MEDS: DOXYCYCLINE HYCLATE 100 MG TABLET PO (08:53)
[2019-07-09] MEDS: SACCHAROMYCES BOULARDII 250 MG CAPSULE PO ×2 (08:53→17:23)
[2019-07-09] MEDS: VITAMIN B COMPLEX CAPSULE 1 CAP PO (08:53)
[2019-07-09] MEDS: MONTELUKAST SODIUM 10 MG TABLET PO (08:53)
[2019-07-09] MEDS: allopurinoL 100 MG TABLET PO ×2 (08:54→17:23)
[2019-07-09] MEDS: EUCERIN CREAM 120 GM JAR 1 APPLIC TOPICAL (08:54)
[2019-07-09] MEDS: carvediloL 25 MG TABLET PO ×2 (09:19→17:23)
[2019-07-09] MEDS: EPOETIN ALFA 10,000 UNITS/ML VIAL 10000 UNITS SUB-Q (09:20)
[2019-07-09] MEDS: MAGNESIUM SULF 2 GM/WATER 50ML 2 GM/50 ML BAG IVPB (10:27)
--- NOTE | 2019-07-09 10:52 | PCPTNOTE ---
Attempted Therapy session. Pt requested for therapist to come back later on today due to her getting ready for a blood transfusion. Therapist reminded Pt of the importance of therapy and reassured Pt she would return to try again in the afternoon.
--- NOTE | 2019-07-09 11:10 | PCNWS ---
Weekly nutritional screen. Patient is tolerating current diet with adequate intake. Today had 90 % of breakfast-Dominican toast, sausage, OJ and Ensure clear. Patient is not drinking Ensure Clear, Recommend discontinuing 2/2 to improved oral intake. No weight loss reported. No nutritional needs at this time.
[2019-07-09 11:59] LABS: Immature Reticulocyte Fraction 14.9 % (3.0-15.9); Reticulocyte Hemoglobin Conten 30.7 pg (28.2-35.7); Reticulocyte Percent 2.75 % (0.7-4.3); Reticulocytes Absolute 0.07 B/L (32.2-175.7)
--- NOTE | 2019-07-09 12:26 | PM.DS ---
DS: Diagnosis Admitting Diagnosis Admitting Diagnosis: Acute kidney failure, unspecified Discharge Diagnosis (1) Acute on chronic renal failure: Qualifiers: Acute renal failure type: unspecified Chronic kidney disease stage: unspecified stage Qualified Code(s): N17.9 - Acute kidney failure, unspecified; N18.9 - Chronic kidney disease, unspecified Code(s): N17.9 - Acute kidney failure, unspecified; N18.9 - Chronic kidney disease, unspecified Status: Acute Assessment and Plan: May be secondary to recent bumex use vs. intravascular dehydration. Cr improved to 2.90 this morning. Nephrology talked to the patient about possibly needing dialysis in the future if her creatinine continues to worsen. He feels at this time she can be discharged home to recheck BMP in middle in next week and have her follow-up with Dr. Chin the week after. Recommended restarting Bumex 1 mg every other day for swelling and to call the office if swelling becomes worse. The patient understands and agrees the plan all questions answered. (2) MDS (myelodysplastic syndrome), low grade: Code(s): D46.20 - Refractory anemia with excess of blasts, unspecified Status: Chronic Assessment and Plan: Platelets have improved since last hospitalization. 64k this morning, stable Continue to monitor blood counts. Encourage nutrition. Continue procrit injections. Continue monitoring. She sees Race Relations Professor at [facility]. (3) Chronic anemia: Code(s): D64.9 - Anemia, unspecified Status: Chronic Assessment and Plan: Likely secondary to myelodysplastic syndrome. H&H 6.9/22.7% this morning. She was asymptomatic with this drop in her H&H. She received 1 unit of PRBCs to improve her H&H. Will recheck CBC in the middle next week and have her follow-up with her proposal analyst at [facility]. (4) Hypokalemia: Code(s): E87.6 - Hypokalemia Status: Acute Assessment and Plan: K 3.8 this morning. Stable. (5) Hypomagnesemia: Code(s): E83.42 - Hypomagnesemia Status: Acute Assessment and Plan: Mag was 1.5, she was given 3 g of IV magnesium. (6) Diverticular disease of intestine with perforation and abscess: Code(s): K57.80 - Diverticulitis of intestine, part unspecified, with perforation and abscess without bleeding Status: Chronic Assessment and Plan: The patient is planning to have an elective partial colectomy in the near future. Continue general surgery recommendations. (7) Generalized weakness: Code(s): R53.1 - Weakness Status: Chronic Assessment and Plan: Continue physical therapy. Encourage PO nutrition. DS: Summary Hospital Course Reason for hospitalization: 79 year old woman with history of CKD stage IV, Myelodysplastic syndrome, recurrent diverticulitis with colonic abscess which required surgical drain, who presented from [facility] at [facility] for abnormal labs showing worsening renal function. She was recently discharged 06/21/2019 and continued on Bumex for edema and Creatinine was above 4. Initial vitals showed temp 97.9F, BP 100/60, HR 92, RR 18, O2 97% on RA. Initial labs showed, chronic anemia with a hemoglobin of 7.8, hematocrit 25.7%, thrombocytopenia at 89, hyponatremia at 130, hypokalemia at 3.0, creatinine at 4.6, BUN 60, otherwise normal. CXR showed Persistent consolidation at the right lower lung zone to at least in part to residual atelectasis although superimposed pneumonia not excludable. The patient was not having any cough or sputum production, vitals stable and not suspicous for pneumonia so she was not tr
--- NOTE | 2019-07-09 12:37 | PM.PNNEP ---
Progress Note: A&P Assessment and Plan (1) JINA (acute kidney injury): Code(s): N17.9 - Acute kidney failure, unspecified Status: Acute Assessment and Plan: her baseline creatinine runs around 2-2.5. Her creatinine is now 2.9. She is off IV fluids. She did get a little albumin. I talked her at length. 24hour urine done last admission showed that at a creatinine of 2 her GFR is only 13. I think that the EGFR on the renal panel overestimates her kidney function because of her poor muscle mass, since she has been sedentary lately with her frequent hospitalizations. So now with a creatinine of almost 3, her GFR may be only 7 or 8. So she is close to having to start dialysis. She does not really want to now and I do not think that this needs to be done emergently. I told her that she should go to dialysis education to learn which kind of dialysis she would want to do. Dr. Chin can set this up as an outpatient. I discussed at length with and FINISH S[employer]ER Tremayne. (2) Chronic kidney disease, stage 4 (severe): Code(s): N18.4 - Chronic kidney disease, stage 4 (severe) Status: Chronic Assessment and Plan: Baseline creatinine around 2 to 2.5. (3) Chronic anemia: Code(s): D64.9 - Anemia, unspecified Status: Chronic Assessment and Plan: Hemoglobin up and down. Giving Epogen Hemoglobin dropped again. She denies any blood in the stool. I ordered a reticulocyte count. She may need Epogen as an outpatient. Perhaps we should refer her to Dr. Moore for outpatient Epogen. (4) MDS (myelodysplastic syndrome), low grade: Code(s): D46.20 - Refractory anemia with excess of blasts, unspecified Status: Chronic Assessment and Plan: Stable (5) Hypokalemia: Code(s): E87.6 - Hypokalemia Status: Acute Assessment and Plan: Resolved (6) Hypertension: Qualifiers: Hypertension type: essential hypertension Qualified Code(s): I10 - Essential (primary) hypertension Code(s): I10 - Essential (primary) hypertension Status: Chronic Assessment and Plan: . blood pressure is doing well. Currently on carvedilol. Additional Plan Subjective Date/time seen: 07/09/19 12:37 Interval history: Patient is alert. Eating lunch. No nausea today. Off IV fluids. She has a little swelling in her elbows. Review of Systems Cardiovascular: Cardiovascular: Reports no additional cardiovascular complaints Respiratory: Respiratory: Reports no additional respiratory complaints Gastrointestinal: Gastrointestinal: Reports no additional gastrointestinal complaints Genitourinary: Genitourinary: Reports no additional female genitourinary complaints Exam Narrative: Exam Narrative: Well developed well-nourished in no acute distress Lungs clear bilaterally Heart regular without rub Abdomen bowel sounds positive soft nontender Extremities trace edema and elbows and hips Skin no rash or subcu nodules Objective Data Vital Signs Vital Signs: Vital Signs - 24 hr 07/08/19 14:00 07/08/19 17:11 07/08/19 21:01 Temperature 36.7 C 36.8 C Pulse Rate 90 95 93 Respiratory Rate 20 20 Blood Pressure 152/79 H 150/79 H Pulse Oximetry 99 98 07/09/19 06:00 07/09/19 09:19 Temperature 36.6 C Pulse Rate 88 80 Respiratory Rate 18 Blood Pressure 145/79 H Pulse Oximetry 98 Intake/Output Intake/Output: Intake & Output 07/06/19 07/07/19 07/08/19 07/09/19 23:59 23:59 23:59 23:59 Intake Total 2436 3654 1935 740 Output Total 0 200 670 500 Balance 2436 3454 1265 240 Meds/Results Medications: Active Medications Generic Name Dose Route Start Last Admin Trade Name Freq PRN Reason Stop Dose Admin Acetaminophen 650 mg 07/03/19 22:26 Tylenol Tablet PO Q4H PRN Mild Pain (1-3) or Fever Allopurinol 100 mg 07/04/19 09:00 07/09/19 08:54 Zyloprim PO 100 mg BID LYLE Administration
[2019-07-09] MEDS: SODIUM CHLORIDE 0.9% IV 250 ML 30 ML IV CONT (13:09)
--- NOTE | 2019-07-09 14:27 | PCOTNOTE ---
Attempted to see patient this morning and patient was eating, re-attempted to see patient this afternoon at which time patient refused to be seen. Patient not seen for OT this date.
--- NOTE | 2019-07-09 14:50 | PCPTNOTE ---
Attempted therapy session again. Pt refused due to still receiving blood. Explained the importance of therapy, Pt continued to decline treatment.
[2019-07-09 16:46] LABS: Hematocrit 29.7 % (37.0-47.0); Hemoglobin 9.2 g/dL (12.0-15.0)
== END 2019-07-09 17:55 | DRG 683 ==
LOC: ANHED 21:46 → ANH3MED 21:50
PROVIDERS: Emergency Medicine; Internal Medicine Nephrology; Physician Assistant; Admitting Provider Family Medicine; Emergency Provider Emergency Medicine; PCP Internal Medicine; Visit Provider Internal Medicine
DX: N17.9 Acute kidney failure, unspecified (principal); K57.80 Diverticulitis of intestine, part unspecified, with perforation and abscess without bleeding; I12.9 Hypertensive chronic kidney disease with stage 1 through stage 4 chronic kidney disease, or unspecified chronic kidney disease; N18.4 Chronic kidney disease, stage 4 (severe); D63.1 Anemia in chronic kidney disease; D46.20 Refractory anemia with excess of blasts, unspecified; E87.6 Hypokalemia; E83.42 Hypomagnesemia; E78.5 Hyperlipidemia, unspecified; Z96.641 Presence of right artificial hip joint; Z85.828 Personal history of other malignant neoplasm of skin; Z85.3 Personal history of malignant neoplasm of breast; E86.0 Dehydration
CPT/HCPCS: 36415; 36430; 71045; 80048; 80053; 80069; 81050; 82436; 82570; 83540; 83550; 83735; 84156; 84300; 85014; 85018; 85025; 85027; 85046; 85055; 85999; 86850; 86900; 86901; 86923; 97110; 97116; 97161; 97165; 97530; 97535; 99291; A9270; J3475; J7030; J7050; J7120; P9016; P9047; Q4081

== ENCOUNTER 2019-08-09 11:16 | Outpatient (CLI) | payer MEDICARE, SELFPAY ==
--- NOTE | ~2019-08-09 | CT_ITS ---
EXAMINATION: CT abdomen pelvis wo con EXAM DATE: 08/09/2019 11:45 INDICATION: Diverticulitis. TECHNIQUE: Spiral CT of the abdomen and pelvis was performed without contrast. Axial, coronal and s agittal images were reviewed. The dose-length product (DLP) for this examination was 352.67 mGy-cm. The exposure was tailored according to patient size (auto mA exposure control), and iterative recons truction (ASIR) was used as additional dose reduction technique. Comparison is made to prior examinat ion from 06/17/2019. FINDINGS: Several liver lesions probably cysts. Pancreatic body cystic mass measuring 3.2 cm unchange d. Spleen and adrenal glands are unremarkable. There are gallstones within an otherwise unremarkable gallbladder. No evidence of obstructive biliary disease. There is no nephrolithiasis or hydronephr osis. Difficult to identify uterus -there is beam hardening artifact from hip hardware limiting rona luation of pelvis. The bladder is unremarkable. There is no retroperitoneal or pelvic lymphadenopat hy. There is mild scattered arteriosclerotic disease. There is right lower quadrant, pelvic drain in position. Abscess cavity this is draining appears roni apsed. There is small abscess in the other side of the pelvis suspected measuring 1.7 x 1.2 cm (see a xial image 112). There is small amount of free pelvic fluid. There is extensive colonic diverticulosi s with persistent inflammation surrounding the sigmoid colon. No free intraperitoneal gas. There is been interval improvement in the generalized body wall edema. The appendix is normal. There is small sliding gastroesophageal hiatal hernia.. There is moderate right, and a small left pleural effusion. There is right basilar multisegmental, left basilar subsegmental atelectasis. Dense mitral annular calcifications. The lung bases are unremarkable. There are no osteoblastic or osteolytic le sions identified. IMPRESSION: 1. Pelvic drain within collapsed abscess cavity. 2. Additional small abscess suspected in the deep left aspect of the pelvis 3. Extensive colonic diverticulosis with persistent perisigmoid inflammation. 4. Stable pancreatic cystic mass. 5. Moderate right, small left pleural effusions with adjacent atelectasis. Reviewed, dictated and finalized at location A.
== END 2019-08-09 11:17 | disposition home or self-care (01) ==
PROVIDERS: PCP Internal Medicine; Visit Provider Surgery
DX: K57.80 Diverticulitis of intestine, part unspecified, with perforation and abscess without bleeding (principal); Z96.89 Presence of other specified functional implants; K86.9 Disease of pancreas, unspecified; J90 Pleural effusion, not elsewhere classified; J98.11 Atelectasis
CPT/HCPCS: 74176

== ENCOUNTER 2019-10-19 09:51 | Outpatient (RCR) | payer MEDICARE, SELFPAY ==
[2019-10-19] MEDS: ACETAMINOPHEN 325 MG TABLET 650 MG PO (12:24)
[2019-10-19] MEDS: diphenhydrAMINE HCl CAP 25 MG CAPSULE PO (12:24)
[2019-10-19 12:25] VITALS: BP 98/63; PULSE 67; RESP 12; TEMP 36.7; O2SAT 100
[2019-10-19 12:42] VITALS: BP 98/58; PULSE 79; RESP 12; TEMP 36.4; O2SAT 99
[2019-10-19 13:11] VITALS: BP 100/51; PULSE 84; RESP 14; TEMP 36.3; O2SAT 100
== END 2020-01-17 23:59 | disposition home or self-care (01) ==
LOC: ANHCPCTRAN 09:51
PROVIDERS: PCP Internal Medicine; Visit Provider Internal Medicine Medical Oncology
DX: D69.6 Thrombocytopenia, unspecified (principal)
CPT/HCPCS: 36415; 36430; 86900; 86901; A9270; P9034

== ENCOUNTER 2019-11-02 06:24 | Outpatient (RCR) | payer MEDICARE, SELFPAY ==
[2019-11-02 07:09] LABS: Eosinophils Absolute Auto 0.03 K/mm3 (0.02-0.50); Eosinophils Percent Auto 0.7 % (1.0-6.0); Hematocrit 22.3 % (35.0-42.0); Hemoglobin 7.4 g/dL (11.7-13.8); Immature Granulocyte Absolute 0.02 K/mm3 (0.00-0.00); Immature Granulocyte Percent A 0.5 % (0.0-0.0); Immature Platelet Fraction Pct 19.7 % (1.0-7.0); Lymphocytes Absolute Auto 0.68 K/mm3 (1.10-4.50); Lymphocytes Percent Auto 16.7 % (18.0-42.0); Mean Corpuscular HGB Conc 33.2 g/dL (32.0-36.0); Mean Corpuscular Hemoglobin 35.4 pg (27.0-31.0); Mean Corpuscular Volume 106.7 fL (78.0-102.0); Monocytes Absolute Auto 0.24 K/mm3 (0.10-0.90); Monocytes Percent Auto 5.9 % (2.0-11.0); Neutrophils Absolute Auto 3.1 K/mm3 (1.7-7.2); Neutrophils Percent Auto 76.2 % (50.0-70.0); Red Blood Count 2.09 M/mm3 (4.20-5.40); Red Cell Distribution Width 15.6 % (11.6-14.4); White Blood Count 4.1 K/mm3 (4.8-10.8)
[2019-11-02 07:12] LABS: Platelet Count Result 6 K/mm3 (150-420)
[2019-11-03] VITALS (7 sets, daily range): BP systolic 78–101; BP diastolic 51–74; PULSE 66–72; RESP 12–18; TEMP 35.8–36.1; O2SAT 95–100
[2019-11-03] MEDS: SODIUM CHLORIDE 0.9% IV 250 ML 10 ML IVPB (13:49)
--- NOTE | 2019-11-03 14:24 | PC.NURSE ---
Pt to room 208b per wc. to bed with max assist of 2. Pt a&ox3 but lethargic, weal, pale and frail in appearance. Oriented to room. call garcia in reach. reminded to call with needs. POA, daughter, notified of patients arrival per pat request.
--- NOTE | 2019-11-03 14:26 | PCDIET ---
plateletes started as ordered per protocol. pt has no complaints. daughter at bedside.
--- NOTE | 2019-11-03 14:50 | PCDIET ---
Platelets continue to infuse without difficulty. Pt sleeping. No distress noted.
[2019-11-03 20:33] LABS: Hematocrit 29.2 % (35.0-42.0); Hemoglobin 9.4 g/dL (11.7-13.8); Platelet Count Result 29 K/mm3 (150-420)
--- NOTE | 2019-11-03 20:44 | PC.NURSE ---
2045 Staff member from [facility] [place] here to transport patient via wheelchair back to [facility].
== END 2019-11-03 20:45 | disposition home or self-care (01) ==
LOC: CHSTREATRM 06:24
PROVIDERS: PCP Internal Medicine Medical Oncology; Visit Provider Internal Medicine Medical Oncology
DX: D69.6 Thrombocytopenia, unspecified (principal); N18.9 Chronic kidney disease, unspecified; D63.1 Anemia in chronic kidney disease
CPT/HCPCS: 36415; 36430; 85014; 85018; 85025; 85049; 85055; 86850; 86900; 86901; 86923; A9270; J7050; P9016; P9034